=== PATIENT | male | born 1975 | race Caucasian/White ===

== ENCOUNTER → 2025-05-28 | Outpatient (REF) | payer MEDICAID, SELFPAY ==
[2025-05-28 09:03] LABS: Hematocrit 35.6 % (40-54); Hemoglobin 11.9 g/dL (13.0-16.5); Mean Corp Hgb Conc 33.4 g/dL (32-36); Mean Corpuscular Volume 86.8 fL (80-94); Mean Platelet Vol. 9.8 fl (6.2-12.0); Platelet Count 306 K/mm3 (150-450); RBC Distribution Width CV 15.1 % (11.6-14.6); RBC Distribution Width SD 48.1 fl (35.1-43.9); Red Blood Count 4.10 M/mm3 (4.6-6.2); White Blood Count 6.9 K/mm3 (4.4-11.0)
[2025-05-28 09:32] LABS: AST(SGOT) 38 U/L (<=37); Alanine Aminotransfer ALT/SGPT 38 U/L (<=46); Albumin, Serum 3.8 g/dL (3.5-5.0); Alkaline Phosphatase 119 U/L (40-129); Anion Gap 11 (5-15); BUN 12 mg/dL (4-19); BUN/Creat Ratio 13.6 RATIO (10-20); Calcium,Total 8.6 mg/dL (7.6-11.0); Carbon Dioxide 18.5 mmol/L (21.0-32.0); Chloride 106 mmol/L (98-108); Globulin 2.8 g/dL (2.2-4.2); Glucose 102 mg/dL (70-99); Potassium 3.9 mmol/L (3.3-5.1)
== END | disposition home or self-care (01) ==
LOC: OLS.SANC 05:00
PROVIDERS: Visit Provider Internal Medicine
DX: Z96.652 Presence of left artificial knee joint (principal)
CPT/HCPCS: 36415; 80053; 85027

== ENCOUNTER → 2025-06-05 05:00 | Outpatient (REF) | payer MEDICAID, SELFPAY ==
--- OUTSIDE RECORDS SUMMARY | 2025-06-05 04:29 | XMS RPT_ITS | CCD ---
Author Organization [facility] Providers Care Automotive Technician Name Role Phone AlexanderRustam Lindsey Attending Unavailable Results Test Name Value Interpretation Reference Range Facil ity CBC-Complete Blood Cnt No Di ffon 05-28-2025 Erythrocyte distribution width (RBC) [Ratio] 15.1 % High 11.6-14.6 [facility] Comment on above: Order Comment: 111-1 Performed By: #### L 100.0500, L500.4050 #### [facility] Laboratory [address] [place], [address] Hematocrit (Bld) [Volume fraction] 35.6 % Low 40-54 [facility] Comment on above: Order Comment: 111-1 Performed By: #### L 100.0500, L500.4050 #### [facility] [address] [place], [address] Hemoglobin (Bld) [Mass/Vol] 11.9 g/dL Low 13.0-16.5 [facility] Comment on above: Order Comment: 111-1 Performed By: #### L 100.0500, L500.4050 #### [facility] [address] [place], [address] MCH (RBC) [Entitic mass] 29.0 pg Normal 27.0-32.0 [facility] Comment on above: Order Comment: 111-1 Performed By: #### L 100.0500, L500.4050 #### [facility] [address] [place], [address] MCHC (RBC) [Mass/Vol] 33.4 g/dL Normal 32-36 [facility] Comment on above: Order Comment: 111-1 Performed By: #### L 100.0500, L500.4050 #### [facility] [address] [place], [address] MCV (RBC) [Entitic vol] 86.8 fL Normal 80-94 [facility] Comment on above: Order Comment: 111-1 Performed By: #### L 100.0500, L500.4050 #### [facility] [address] [place], [address] Platelet mean volume (Bld) [Entitic vol] 9.8 fL Normal 6.2-12.0 [facility] Comment on above: Order Comment: 111-1 Performed By: #### L 100.0500, L500.4050 #### [facility] [address] [place], [address] Platelets (Bld) [#/Vol] 306 10*3/uL Normal 150-450 [facility] Comment on above: Order Comment: 111-1 Performed By: #### L 100.0500, L500.4050 #### [facility] [address] [place], [address] RBC (Bld) [#/Vol] 4.10 10*6/uL Low 4.6-6.2 [facility] Comment on above: Order Comment: 111-1 Performed By: #### L 100.0500, L500.4050 #### [facility] [address] [place], [address] RDW SD 48.1 fl High 35.1-43.9 [facility] Comment on above: Order Comment: 111-1 Performed By: #### L 100.0500, L500.4050 #### [facility] [address] [place], [address] WBC (Bld) [#/Vol] 6.9 10*3/uL Normal 4.4-11.0 [facility] Comment on above: Order Comment: 111-1 Performed By: #### L 100.0500, L500.4050 #### [facility] [address] [place], [address] Comprehensive Metabolic Prof gillian 05-28-2025 Albumin [Mass/Vol] 3.8 g/dL Normal 3.5-5.0 [facility] Comment on above: Order Comment: 111-1 Performed By: #### L 100.0500, [id number] #### [facility] [address] [place], [address] Albumin/Globulin [Mass ratio] 1.4 {ratio} Normal 0.9-2.4 [facility] Comment on above: Order Comment: 111-1 Performed By: #### L 100.0500, L500.4050 #### [facility] [address] [place], [address] ALK PHOS 119 U/L Normal 40-129 [facility] Comment on above: Order Comment: 111-1 Performed By: #### L 100.0500, L500.4050 #### [facility] [address] [place], [address] ALT [Catalytic activity/Vol] 38 U/L Normal <=46 [facility] Comment on above: Order Comment: 111-1 Performed By: #### L 100.0500, L500.4050 #### [facility] [address] [place], [address] AST [Catalytic activity/Vol] 38 U/L Normal <=37 [facility] Comment on above: Order Comment: 111-1 Performed By: #### L 100.0500, [id number] #### [facility] [address] [place], [address] Bilirubin [Mass/Vol] 0.67 mg/dL Normal 0.00-1.30 [facility] Comment on above: Order Comment: 111-1 Performed By: #### L 100.0500, [id number] #### [facility] [address] [place], [address] BUN/CRE 13.6 RATIO Normal 10-20 [facility] Comment on above: Order Comment: 111-1 Performed By: #### L 100.0500, [id number] #### [facility] [address] [place], [address] Calcium [Mass/Vol] 8.6 mg/dL Normal 7.6-11.0 [facility] Comment on above: Order Comment: 111-1 Performed By: #### L 100.0500, [id number] #### [facility] [address] [place], [address] Chloride [Moles/Vol] 106 mmol/L Normal 98-108 [facility] Comment on above: Order Comment: 111-1 Performed By: #### L 100.0500, [id number] #### [facility] [address] [place], [address] CO2 [Moles/Vol] 18.5 mmol/L Low 21.0-32.0 [facility] Comment on above: Order Comment: 111-1 Performed By: #### L 100.0500, [id number] #### [facility] [address] [place], [address] Creatinine [Mass/Vol] 0.91 mg/dL Normal 0.70-1.20 [facility] Comment on above: Order Comment: 111-1 Performed By: #### L 100.0500, L500.4050 #### [facility] [address] [place], [address] GAP 11 Normal 5-15 [facility] Comment on above: Order Comment: 111-1 Performed By: #### L 100.0500, [id number] #### [facility] [address] [place], [address] GFR/1.73 sq M.predicted among non-blacks MDRD (S/P/Bld) [Vol rate/Area] 104 mL/min/{1.73_m2} Normal >60 [facility] Comment on above: Order Comment: 111-1 Result Comment: mL/m in/1.73m2 CKD-EPI Creatinine Equation (2020) Performed By: #### L 100.0500, L500.4050 #### [facility] [address] [place], [address] Globulin (S) [Mass/Vol] 2.8 g/dL Normal 2.2-4.2 [facility] Comment on above: Order Comment: 111-1 Performed By: #### L 100.0500, L500.4050 #### [facility] [address] [place], [address] Glucose [Mass/Vol] 102 mg/dL High 70-99 [facility] Comment on above: Order Comment: 111-1 Performed By: #### L 100.0500, L500.4050 #### [facility] [address] [place], [address] Potassium [Moles/Vol] 3.9 mmol/L Normal 3.3-5.1 [facility] Comment on above: Order Comment: 111-1 Performed By: #### L 100.0500, L500.4050 #### [facility] [address] [place], [address] Sodium [Moles/Vol] 136 mmol/L Normal 133-145 [facility] Comment on above: Order Comment: 111-1 Performed By: #### L 100.0500, [id number] #### [facility] [address] [place], [address] T PROT 6.6 g/dL Normal 5.9-8.4 [facility] Comment on above: Order Comment: 111-1 Performed By: #### L 100.0500, [id number] #### [facility] [address] [place], [place], [address] Urea nitrogen [Mass/Vol] 12 mg/dL Normal 4-19 [facility] Comment on above: Order Comment: 111-1 Performed By: #### L 100.0500, [id number] #### [facility] [address] [place], [address] Encounters Encounter Date Encounter Type Care Provider Facility Start: 05-28-2025 ambulatory Rustam Humberto BARBI Faci lity:[facility] Payers Date Payer Category Payer Self-pay Summary Purpose Family History No Family History Records Found Advance Directives No Advanced Directives Records Found Additional Source Comments (unrecognized sect ion and content) No Status Records Found INFORMATION SOURCE (unrecogn ized section and content) DATE CREATED AUTHOR 05/28/2025 [facility] FOR RECORDS PERTAINING TO PATIENTS WHO ARE OR HAVE BEEN ENROLLED IN A CHEMICAL DEPENDENCY/SUBSTANCEABUSE PROGRAM, SOME INFORMATION MAY BE OMITTED. This clinical summary was aggregated from multiple sources. Caution should be exercised in using it in the provision of clinical care. This summary normalizes information from multiple sources, and as a consequence, information in this document may materially change the coding, format and clinical context of patient data. In addition, data may be omitted in some cases. CLINICAL DECISIONS SHOULD BE BASED ON THE PRIMARY CLINICAL RECORDS. [employer] provides no warranty or guarantee of the accuracy or completeness of information in this document.
[2025-06-05 08:39] LABS: Hematocrit 33.7 % (40-54); Hemoglobin 11.1 g/dL (13.0-16.5); Mean Corp Hgb Conc 32.9 g/dL (32-36); Mean Corpuscular Volume 87.5 fL (80-94); Mean Platelet Vol. 9.0 fl (6.2-12.0); Platelet Count 354 K/mm3 (150-450); RBC Distribution Width CV 14.7 % (11.6-14.6); RBC Distribution Width SD 47.5 fl (35.1-43.9); Red Blood Count 3.85 M/mm3 (4.6-6.2); White Blood Count 7.6 K/mm3 (4.4-11.0)
[2025-06-05 09:47] LABS: Anion Gap 11 (5-15); BUN 14 mg/dL (4-19); BUN/Creat Ratio 15.3 RATIO (10-20); Calcium,Total 8.7 mg/dL (7.6-11.0); Carbon Dioxide 20.7 mmol/L (21.0-32.0); Chloride 107 mmol/L (98-108); Glucose 82 mg/dL (70-99); Potassium 3.9 mmol/L (3.3-5.1)
== END ==
LOC: OLS.SANC 05:00
PROVIDERS: Visit Provider Internal Medicine
DX: N40.0 Benign prostatic hyperplasia without lower urinary tract symptoms (principal); K57.90 Diverticulosis of intestine, part unspecified, without perforation or abscess without bleeding; Z47.1 Aftercare following joint replacement surgery
CPT/HCPCS: 36415; 80048; 85027

== ENCOUNTER → 2025-06-12 | Outpatient (REF) | payer MEDICAID, SELFPAY ==
[2025-06-12 08:42] LABS: Hematocrit 35.1 % (40-54); Hemoglobin 11.4 g/dL (13.0-16.5); Mean Corp Hgb Conc 32.5 g/dL (32-36); Mean Corpuscular Volume 88.0 fL (80-94); Mean Platelet Vol. 9.4 fl (6.2-12.0); Platelet Count 347 K/mm3 (150-450); RBC Distribution Width CV 14.7 % (11.6-14.6); RBC Distribution Width SD 47.8 fl (35.1-43.9); Red Blood Count 3.99 M/mm3 (4.6-6.2); White Blood Count 5.5 K/mm3 (4.4-11.0)
[2025-06-12 09:00] LABS: FOLATES,SERUM (FOLIC ACID) 3.65 ng/mL (4.60-34.80)
[2025-06-12 09:01] LABS: Anion Gap 9 (5-15); BUN 10 mg/dL (4-19); BUN/Creat Ratio 11.1 RATIO (10-20); Calcium,Total 8.9 mg/dL (7.6-11.0); Carbon Dioxide 21.4 mmol/L (21.0-32.0); Chloride 108 mmol/L (98-108); Glucose 82 mg/dL (70-99); Iron 64 ug/dL (65-175); Iron Binding Capacity,Total 255 ug/dL (250-450); Iron Binding Capacity,Unsat 191 ug/dL (228-428); Potassium 3.8 mmol/L (3.3-5.1); Vitamin B12 318 pg/mL (180-914)
== END | disposition home or self-care (01) ==
LOC: OLS.SANC 05:00
PROVIDERS: Visit Provider Internal Medicine
DX: N40.0 Benign prostatic hyperplasia without lower urinary tract symptoms (principal); M19.90 Unspecified osteoarthritis, unspecified site
CPT/HCPCS: 36415; 80048; 82607; 82746; 83540; 83550; 85027

== ENCOUNTER → 2025-06-15 05:00 | Outpatient (REF) | payer MEDICAID, SELFPAY ==
--- OUTSIDE RECORDS SUMMARY | 2025-06-15 04:30 | XMS RPT_ITS | CCD ---
Author Organization [facility] Care Team Providers Care Napping Machine Operator Name Role Phone Alexia BAIN, Agapito Samaniego Primary Care Provider Unavailable Primary Care Provider Unavailabl e Jacob Beavers MD, Devon Quiñonez Primary Care Provi dagmar Jacob Beavers MD, Devon Quiñonez Primary Care Provi dagmar Jacob Beavers MD, Devon Quiñonez Primary Care Provi dagmar Jacob Beavers MD, Devon Quiñonez Primary Care Provi dagmar Elmira Polo PA-C Unavailable Jacob Beavers MD, Devon Quiñonez Primary Care Provi dagmar Jacob Beavers MD, Devon Quiñonez Primary [facility] Provi dagmar 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.MARILEE, Remi Primary Care Provider DEVON JAMES JR Primary Care Unavail able MASTRUCCI, REMI Referring Unavailable MASTRUCCI, REMI Primary Care Unavailable MASTRUCCI, REMI Primary Care Unavailable YOMI MANZANARES Attending Unavailable DEVON JAMES JR Primary Care Unavail able YOON ZHANG Referring Unavailable MASTRUCCI, REMI Primary Care Unavailable YOON ZHANG Attending Unavailable MASTRUCCI, REMI Primary Care Unavailable MASTRUCCI, REMI Referring Unavailable MASTRUCCI, REMI Primary Care Unavailable MASTRUCCI, REMI Attending Unavailable MASTRUCCI, REMI Referring Unavailable MASTRUCCI, REMI Primary Care Unavailable MASTRUCCI, REMI Primary Care Unavailable MASTRUCCI, REMI Attending Unavailable SELF Referring Unavailable MASTRUCCI, REMI Primary Care Unavailable MASTRUCCI, REMI Attending Unavailable LINA DUARTE Attending Unavailable SELF Referring Unavailable MASTRUCCI, REMI Primary Care Unavailable MASTRUCCI, REMI Attending Unavailable MASTRUCCI, REMI Primary Care Unavailable MASTRUCCI, REMI Referring Unavailable MASTRUCCI, ERMI Primary Care Unavailable MASTRUCCI, REMI Referring Unavailable MASTRUCCI, REMI Primary Care Unavailable MASTRUCCI, REMI Attending Unavailable SELF Referring Unavailable MASTRUCCI, REMI Primary Care Unavailable MASTRUCCI, REMI Referring Unavailable MASTRUCCI, REMI Primary Care Unavailable MASTRUCCI, REMI Primary Care Unavailable LINDSAY DHILLON Attending Unavailable MASTRUCCI, REMI Primary Care Unavailable MASTRUCCI, REMI Attending Unavailable SELF Referring Unavailable MASTRUCCI, REMI Primary Care Unavailable SELF Referring Unavailable MASTRUCCI, REMI Primary Care Unavailable MASTRUCCI, REMI Attending Unavailable SELF Referring Unavailable MASTRUCCI, ERMI Primary Care Unavailable MASTRUCCI, REMI Attending Unavailable GURMEET FINN Attending Unavailabl e SELF Referring Unavailable MASTRUCCI, REMI Primary Care Unavailable SELF Referring Unavailable MASTRUCCI, REMI Primary Care Unavailable MASTRUCCI, REMI Attending Unavailable RODAS, DOLLY Attending Unavailable SELF Referring Unavailable MASTRUCCI, REMI Primary Care Unavailable RODAS, DOLLY Referring Unavailable MASTRUCCI, REMI Primary Care Unavailable MASTRUCCI, REMI Referring Unavailable MASTRUCCI, REMI Primary Care Unavailable MASTRUCCI, REMI Referring Unavailable MASTRUCCI, REMI Primary Care Unavailable MASTRUCCI, REMI Attending Unavailable MASTRUCCI, REMI Referring Unavailable TRE SERRANO Attending Unavailable MASTRUCCI, REMI Primary Care Unavailable MASTRUCCI, REMI Primary Care Unavailable MASTRUCCI, REMI Primary Care Unavailable MASTRUCCI, REMI Attending Unavailable SELF Referring Unavailable MASTRUCCI, REMI Primary Care Unavailable MASTRUCCI, REMI Attending Unavailable MASTRUCCI, REMI Referring Unavailable MASTRUCCI, REMI Primary Care Unavailable MASTRUCCI, REMI Attending Unavailable MASTRUCCI, REMI Primary Care Unavailable MASTRUCCI, REMI Attending Unavailable MASTRUCCI, REMI Primary Care Unavailable SELF Referring Unavailable MASTRUCCI, REMI Primary Care Unavailable MASTRUCCI, REMI Attending Unavailable MAYO POWERS Attending Unavailable MASTRUCCI, REMI Primary Care Unavailable LAURIE COKER Attending Unavailable MASTRUCCI, REMI Primary Care Unavailable MASTRUCCI, REMI Primary Care Unavailable MASTWILY, REMI Primary Care Unavailable Rustam Goodrich Attending Unavailable Rustam Goodrich Attending Unavailable Rustam Goodrich Attending Unavailable Allergies Allergy Classification Reported Allergen(s) Allergy Type Date of Onset Reaction(s) Facility Macrolides (antibiotic) (1 source) Erythromycin Drug Allergy 09-10-20 16 Hives, Shortness of Breath [facility] Work Phone: Sulfamethoxazole / Trimethoprim (1 source) Sulfamethoxazole / Trimethoprim Drug All[facility] 06-01-[facility] Work Phone: Sulfonamides (antibiotic) (1 source) Sulfonamides (Antibiotic) Drug Allergy 09-10-20 16 Unknown [facility] (20 sources) Erythromycin; Translations: [ERYTHROMYCIN BASE] Drug Allergy 09-10-20 16 Hives, Shortness of Breath [facility] Work Phone: (20 sources) Sulfamethoxazole / Trimethoprim; Translations: [SULFAMETHOXAZOLE-T RIMETHOPRIM] Drug Allergy 06-01-20 15 [facility] (20 sources) Sulfonamides (Antibiotic); Translations: [SULFA (SULFONAMIDE ANTIBIOTICS)] Propensity to adverse reactions to drug 09-10-20 16 Unknown [facility] Medications Current Medications Medication Drug Class(es) Dates Sig (Normalized) Sig (Original) acetaminophen 325 mg / HYDROcodone bitartrate 5 mg oral tablet (8 sources) Opioid Agonist Start: 08-18-2022 End: 08-23-2022 take 1 tablet by mouth every eight hours as needed for pain HYDROcodone-aceta minophen (NORCO) 5-325 mg per tablet Indications: Contusion of right knee, initial encounter , Patellar dislocation, right, initial encounter Take 1 tablet by mouth every 8 hours as needed for pain for up to 5 days. 10 tablet 0 08/18/2022 08/23/2022 Active Start: 07-30-2022 End: 08-18-2022 take 1 tablet by mouth every six hours as needed for pain HYDROcodone-acetaminophen (NORCO) 5-325 mg per tablet Indications: Left lower quadrant abdominal pain Take 1 tablet by mouth every 6 hours as needed for pain. 15 tablet 0 07/30/2022 08/18/2022 Discontinued Comment on above: Take 1 tablet by kalee th every 6 hours as needed for pain. Take 1 tablet by kalee th every 8 hours as needed for pain for up to 5 days. [id number] 200 actuat albuterol 0.09 mg/actuat metered dose inhaler (20 sources) beta2-Adrenergic Agonist Start: 4 End: take 2 puff(s) by inhalation every four hours as needed for wheezing albuterol HFA (PROVENTIL HFA, VENTOLIN HFA) 90 mcg/actuation inhaler Indications: Viral URI with cough Inhale 2 Puffs as instructed every 4 hours as needed for wheezing/shortness of breath. 8 g 03/09/2024 02/09/2025 Discontinued Start: 05-09-2021 End: 02-09-2025 take 2 puff(s) by inhalation every four hours as needed albuterol HFA (PROAIR HFA) 90 mcg/actuation inhaler Indications: Mild intermittent asthma without complication (HCC) Inhale 2 puffs as instructed every 4 hours as needed. 1 each 3 02/09/2025 Active Comment on above: Inhale 2 Puffs as in structed every 4 hours as needed. amoxicillin 875 mg oral tablet (3 sources) Penicillin-class Antibacterial Start: 4 End: 4 take 1 tablet by mouth twice daily amoxicillin (AMOXIL) 875 mg tablet Indications: Upper respiratory tract infection, unspecified type Take 1 tablet by mouth two times a day for 7 days. 14 tablet 10/12/2024 10/19/2024 Active Start: 12-23-2023 End: 12-30-2023 take 1 tablet by mouth twice daily amoxicillin (AMOXIL) 875 mg tablet Indications: Acute otitis media, left Take 1 tablet by mouth two times a day for 7 days. 14 tablet 0 12/23/2023 12/30/2023 Active Comment on above: Take 1 tablet by kalee th two times a day for 7 days. amoxicillin 875 mg / clavulanate 125 mg oral tablet (20 sources) Penicillin-class Antibacterial Start: 5 End: take 1 tablet by mouth twice daily amoxicillin-clavulan ate potassium (AUGMENTIN) 875-125 mg per tablet Indications: Acute non-recurrent pansinusitis Take 1 tablet by mouth two times a day for 10 days. 20 tablet 02/09/2025 02/19/2025 Active Start: 12-11-2024 End: 12-25-2024 take 1 tablet by mouth every twelve hours amoxicillin-clavulanate potassium (AUGMENTIN) 875-125 mg per tablet Indications: Acute recurrent sinusitis, unspecified location Take 1 tablet by mouth every 12 hours for 14 days. 28 tablet 12/11/2024 12/20/2024 Discontinued Start: 11-09-2024 End: 11-19-2024 take 1 tablet by mouth every twelve hours amoxicillin-clavulanate potassium (AUGMENTIN) 875-125 mg per tablet Indications: Acute non-recurrent sinusitis, unspecified location Take 1 tablet by mouth every 12 hours for 10 days. 20 tablet 11/09/2024 11/19/2024 Active Start: 05-23-2024 End: 05-30-2024 take 1 tablet by mouth twice daily amoxicillin-clavulanate potassium (AUGMENTIN) 875-125 mg per tablet Indications: Acute non-recurrent maxillary sinusitis Take 1 tablet by mouth two times a day for 7 days. 14 tablet 0 05/23/2024 05/30/2024 Active Start: 07-12-2023 End: 08-18-2023 take 1 tablet by mouth twice daily at mealtime amoxicillin-clavulanic acid (AUGMENTIN) 875-125 mg per tablet Indications: Recurrent acute serous otitis media of both ears Take 1 tablet by mouth two times a day with meals for 14 days. 28 tablet 0 08/04/2023 08/17/2023 Discontinued Start: 10-05-2022 End: 12-18-2022 take 1 tablet by mouth twice daily amoxicillin-clavulanic acid (AUGMENTIN) 875-125 mg per tablet Indications: Acute recurrent maxillary sinusitis Take 1 tablet by mouth twice daily for 10 days. 20 tablet 0 12/08/2022 12/18/2022 Start: 08-10-2022 End: 08-20-2022 take 1 tablet by mouth twice daily amoxicillin-clavulanic acid (AUGMENTIN) 875-125 mg per tablet Indications: Left sided abdominal pain , Diverticulosis Take 1 tablet by mouth twice daily for 10 days. 20 tablet 0 08/10/2022 08/20/2022 Start: 06-24-2022 End: 06-19-2022 take 1 tablet by mouth every twelve hours amoxicillin-clavulanic acid (AUGMENTIN) 875-125 mg per tablet Indications: Viral URI with cough Take 1 tablet by mouth every 12 hours for 5 days. 10 tablet 0 06/24/2022 06/19/2022 Discontinued (Course of therapy completed) Start: 06-24-2022 End: 06-29-2022 take 1 tablet by mouth every twelve hours amoxicillin-clavulanic acid (AUGMENTIN) 875-125 mg per tablet Indications: Viral URI with cough Take 1 tablet by mouth every 12 hours for 5 days. 10 tablet 0 06/24/2022 06/29/2022 Active Start: 06-19-2022 End: 07-30-2022 take 1 tablet by mouth twice daily at mealtime amoxicillin-clavulanic acid (AUGMENTIN) 875-125 mg per tablet Indications: Bacterial sinusitis Take 1 tablet by mouth twice daily with meals. 28 tablet 0 06/19/2022 07/30/2022 Discontinued Start: 04-06-2022 End: 06-17-2022 take 1 tablet by mouth twice daily at mealtime amoxicillin-clavulanic acid (AUGMENTIN) 875-125 mg per tablet Indications: Bacterial sinusitis Take 1 tablet by mouth twice daily with meals. 28 tablet 0 04/06/2022 06/17/2022 Discontinued (Course of therapy completed) Start: 03-13-2022 End: 03-20-2022 take 1 tablet by mouth twice daily at mealtime amoxicillin-clavulanic acid (AUGMENTIN) 875-125 mg per tablet Indications: Acute non-recurrent maxillary sinusitis Take 1 tablet by mouth twice daily with meals for 7 days. 14 tablet 0 03/13/2022 03/20/2022 Active Comment on above: Take 1 tablet by kalee th twice daily with meals for 7 days. Take 1 tablet by kalee th twice daily with meals. Take 1 tablet by kalee th every 12 hours for 5 days. Take 1 tablet by kalee th twice daily for 10 days. 1 tab twice daily wi th food 1 tablet twice daily with food Take 1 tablet by kalee th twice daily for 7 days. Take 1 tablet by kalee th two times a day with meals for 14 days. betamethasone 1 mg/ml topical cream (4 sources) Corticosteroid Start: End: betamethasone valerate 0.1 % cream Indications: Eczema, unspecified type Apply 1 application to affected area two times a day. 45 g 10/19/2024 11/18/2024 Active betamethasone 0.5 mg/ml / clotrimazole 10 mg/ml topical cream (2 sources) Azole Antifungal, Corticosteroid Start: End: clotrimazole-betamet hasone (LOTRISONE) cream Indications: Rash Apply to affected area two times a day for 14 days. 45 g 0 02/25/2024 03/10/2024 Active busPIRone hydrochloride 10 mg oral tablet (20 sources) Start: End: take 1 tablet by mouth three times daily busPIRone (BUSPAR) 10 mg tablet Indications: Anxiety and depression Take 1 tablet by mouth three times a day. 270 tablet 10/19/2024 01/17/2025 Active celecoxib 100 mg oral capsule (20 sources) Nonsteroidal Anti-inflammatory Drug take 1 capsule by mouth twice daily celecoxib (CELEBREX) 100 mg capsule Take 100 mg by mouth two times a day. Active cholecalciferol 1.25 mg oral capsule (20 sources) Vitamin D Start: End: take 1 capsule by mouth every week cholecalciferol, Vitamin D3, (VITAMIN D3) 1,250 mcg (50,000 unit) cap capsule Indications: Vitamin D deficiency Take 1 capsule by mouth one time a week for 10 doses. 10 capsule 10/19/2024 Active clobetasol propionate 0.5 mg/ml topical cream (11 sources) Corticosteroid Start: clobetasol (TEMOVATE) 0.05 % cream apply 1 application topically to affected area two times a day. 04/11/2025 Active Start: 12-20-2024 End: 01-19-2025 clobetasol (TEMOVATE) 0.05 % cream Indications: Eczema, unspecified type Apply 1 application to affected area two times a day. 30 g 1 12/20/2024 01/19/2025 Active 12 hr dextromethorphan hydrobromide 30 mg / guaiFENesin 600 mg extended release oral tablet (3 sources) Uncompetitive J-buflpe-H-aspartate Receptor Antagonist, Sigma-1 Agonist Start: 06-17-2022 End: 06-24-2022 take 1 tablet by mouth twice daily dextromethorphan-guaiFENesin (MUCINEX DM) 30-600 mg per tablet Indications: Viral URI with cough Take 1 tablet by mouth twice daily for 7 days. 14 tablet 0 06/17/2022 06/24/2022 Active Comment on above: Take 1 tablet by [facility] twice daily for 7 days. 0.5 ml dulaglutide 3 mg/ml auto-injector (20 sources) GLP-1 Receptor Agonist Start: 03-12-2025 End: 05-15-2025 inject 1.5 mg by subcuta neous injecti on every week dulaglutide (TRULICITY) 1.5 mg/0.5 mL pen injector Indications: Pre-diabetes Inject 1.5 mg subcutaneously one time a week. 6 mL 1 05/15/2025 Active Start: 02-12-2025 End: 03-14-2025 inject 0.75 mg by subcutaneous injection every week dulaglutide (TRULICITY) 0.75 mg/0.5 mL pen injector Indications: Pre-diabetes Inject 0.75 mg subcutaneously one time a week. 2 mL 02/12/2025 03/12/2025 Discontinued fluocinolone acetonide 0.35390 mg/mg topical ointment (3 sources) Corticosteroid Start: 08-04-2023 End: 09-03-2023 fluocinolone (SYNALAR) 0.025 % ointment Indications: Eczema, unspecified type Apply to affected area two times a day. 120 g 1 08/04/2023 09/03/2023 Active Comment on above: Apply to affected ar ea two times a day. FLUoxetine 40 mg oral capsule (20 sources) Serotonin Reuptake Inhibitor Start: 08-08-2024 End: 02-04-2025 take 1 capsule by mouth once daily FLUoxetine (PROZAC) 40 mg capsule Indications: Anxiety and depression TAKE 1 CAPSULE BY MOUTH EVERY DAY 90 capsule 1 12/21/2024 Active Start: 07-13-2024 End: 01-09-2025 take 1 capsule by mouth once daily FLUoxetine (PROZAC) 10 mg capsule Indications: Anxiety and depression Take 1 capsule by mouth once daily. 90 capsule 1 07/13/2024 08/08/2024 Discontinued Start: 12-27-2023 End: 05-31-2024 take 2 capsules by mouth once daily FLUoxetine (PROZAC) 10 mg capsule Indications: Anxiety and depression Take 2 capsules by mouth once daily. 180 capsule 1 12/27/2023 05/31/2024 Discontinued Start: 11-03-2021 End: 02-02-2023 take 2 capsules by mouth once daily FLUoxetine (PROZAC) 10 mg capsule Indications: Anxiety and depression Take 2 capsules by mouth once daily. 180 capsule 1 02/02/2023 Active Comment on above: Take 2 capsules by m outh once daily. fluticasone propionate 0.05 mg/actuat metered dose nasal spray (20 sources) Corticosteroid Start: 02-27-20 take 1 spray(s) nasal route at bedtime fluticasone (FLONASE) 50 mcg/actuation nasal spray Indications: Upper respiratory tract infection, unspecified type SPRAY 1 SPRAY INTO EACH NOSTRIL AT BEDTIME 48 mL 1 02/26/2025 Active Start: 12-08-2024 End: 01-30-2025 take 1 spray(s) nasal route at bedtime fluticasone (FLONASE) 50 mcg/actuation nasal spray Indications: Upper respiratory tract infection, unspecified type SPRAY 1 SPRAY INTO EACH NOSTRIL AT BEDTIME 144 mL 1 01/30/2025 Active Start: 10-12-2024 End: 12-08-2024 take 1 spray(s) nasal route once daily at bedtime fluticasone (FLONASE) 50 mcg/actuation nasal spray Indications: Upper respiratory tract infection, unspecified type Use 1 Hol[place] in each nostril daily at bedtime. 9.9 mL 10/12/2024 12/08/2024 Discontinued Start: 07-12-2023 End: 05-31-2024 take 2 spray(s) nasal route once daily at bedtime fluticasone (FLONASE) 50 mcg/actuation nasal spray Indications: Acute non-recurrent sinusitis, unspecified location Use 2 Sprays in each nostril daily at bedtime. 1 Each 1 07/12/2023 05/31/2024 Discontinued Start: 04-06-2022 End: 07-12-2023 take 1 spray(s) nasal route twice daily fluticasone (FLONASE ALLERGY RELIEF) 50 mcg/actuation nasal spray Indications: Acute recurrent maxillary sinusitis Use 1 [place] in each nostril twice daily. 1 Each 0 12/08/2022 07/12/2023 Discontinued Comment on above: Use 1 Hol[place] in each nostril twice daily. Use 2 Sprays in each nostril daily at bedtime. gabapentin 300 mg oral capsule (20 sources) Anti-epileptic Agent Start: 11-03-19 End: 03-14-20 gabapentin (NEURONTIN) 300 mg capsule Indications: Restless leg syndrome , Intractable migraine without status migrainosus, unspecified migraine type Take 4 capsules by mouth as directed for 30 days. 120 capsule 02/12/2025 Active Comment on above: Take 4 capsules by [facility] as directed for 180 days. 12 hr guaiFENesin 600 mg extended release oral tablet (2 sources) Start: 08-17-20 End: 08-27-20 take 1 tablet by mouth twice daily guaiFENesin (MUCINEX) 600 mg 12 hr tablet Indications: Chest congestion Take 1 tablet by mouth two times a day for 10 days. 20 tablet 0 08/17/2023 08/27/2023 Active Comment on above: Take 1 tablet by [facility] two times a day for 10 days. hydrocortisone 10 mg/ml / neomycin 3.5 mg/ml / polymyxin b [id number] unt/ml otic suspension (5 sources) Aminoglycoside Antibacterial, Polymyxin-class Antibacterial, Corticosteroid Start: 12-20-19 End: 12-25-19 25 neomycin-polymyxin- hydrocortisone (CORTISPORIN) 3.5-10,000-1 mg/mL-unit/mL-% otic suspension Indications: Earache on left Use 4 Drops in the left ear four times daily for 5 days. 10 mL 12/20/2024 12/25/2024 Active Start: 12-23-2023 End: 12-28-2023 hruvufot-jdsunwtpu-paqhpevnp isone (CORTISPORIN) 3.5-10,000-1 mg/mL-unit/mL-% otic suspension Indications: Acute otitis externa of left ear, unspecified type Use 4 Drops in the left ear three times a day for 5 days. 3 mL 0 12/23/2023 12/28/2023 Active Comment on above: Use 4 Drops in the l eft ear three times a day for 5 days. hydrOXYzine hydrochloride 50 mg oral tablet (20 sources) Antihistamine Start: 07-13-20 24 End: 07-04-20 take 1 tablet by mouth three times daily as needed for anxiety hydrOXYzine HCl (ATARAX) 50 mg tablet Indications: Anxiety and depression TAKE 1 TABLET BY MOUTH THREE TIMES A DAY NEEDED FOR ANXIETY 270 tablet 1 01/05/2025 07/04/2025 Active Start: 06-09-2024 End: 07-09-2024 take 1 tablet by mouth three times daily as needed hydrOXYzine HCl (ATARAX) 25 mg tablet Indications: Dermatitis , Rash Take 1 tablet by mouth three times a day as needed for itching/rash. 60 tablet 06/09/2024 07/09/2024 Active Start: 11-03-2021 End: 05-31-2024 take 1 tablet by mouth three times daily as needed hydrOXYzine HCl (ATARAX) 25 mg tablet Indications: Anxiety and depression TAKE 1 TABLET BY MOUTH THREE TIMES A DAY NEEDED FOR ITCHING/ rash and anxiety. 270 tablet 0 02/04/2023 05/31/2024 Discontinued Comment on above: Take 1 tablet by kalee th three times daily as needed for itching/rash. And anxiety TAKE 1 TABLET BY KALEE TH THREE TIMES A DAY NEEDED FOR ITCHING/ rash and anxiety. ketorolac tromethamine 10 mg oral tablet (14 sources) Nonsteroidal Anti-inflammatory Drug, Cyclooxygenase Inhibitor Start: End: take 1 tablet by mouth every six hours as needed keTORolac (TORADOL) 10 mg tablet Take 1 tablet by mouth every 6 hours as needed for up to 5 days. 20 tablet 02/14/2025 02/19/2025 Active Start: 04-13-2022 End: 07-30-2022 take 1 tablet by mouth twice daily as needed for pain keTORolac (TORADOL) 10 mg tablet Indications: Right facial pain , Intractable migraine without aura and without status migrainosus Take 1 tablet by mouth twice daily as needed for pain. 8 tablet 0 04/13/2022 07/30/2022 Discontinued Comment on above: Take 1 tablet by kalee th twice daily as needed for pain. levoFLOXacin 750 mg oral tablet (1 source) Quinolone Antimicrobial Start: End: take 1 tablet by mouth once daily levoFLOXacin (LEVAQUIN) 750 mg tablet Take 1 tablet by mouth once daily for 7 days. 7 tablet 0 01/19/2024 01/26/2024 Active Comment on above: Take 1 tablet by kalee th once daily for 7 days. lidocaine 0.04 mg/mg medicated patch (8 sources) Antiarrhythmic, Amide Local Anesthetic Start: End: apply 1 dose transdermal route once daily, then apply 1 dose transdermal route every twelve hours lidocaine (SALONPAS) 4 % patch Apply 1 patch as directed once daily for 5 days. Remove patch after 12 hours 5 patch 02/14/2025 02/19/2025 Active Start: 07-13-2024 End: 07-18-2024 apply 1 dose transdermal route once daily, then apply 1 dose transdermal route every twelve hours lidocaine (LIDODERM) 5 % Indications: Acute left-sided low back pain without sciatica Apply 1 Patch as directed once daily for 5 days. to affected area. Remove patch after 12 hours. 5 Patch 07/13/2024 07/18/2024 Active Start: 05-13-2023 End: 05-13-2023 lidocaine (PF) 10 mg/mL (1 % ) 4 mL injection (XYLOCAINE) Start: 12-31-2022 End: 01-03-2023 apply 1 dose transdermal route every twenty-four hours lidocaine (LIDODERM) 5 % Apply 1 Patch as directed every 24 hours for 3 days. 3 Patch 0 12/31/2022 01/03/2023 Active Start: 07-02-2022 End: 07-02-2022 lidocaine (PF) 10 mg/mL (1 % ) 4 mL injection (XYLOCAINE) Comment on above: Apply 1 Patch as dir ected every 24 hours for 3 days. meloxicam 15 mg oral tablet (10 sources) Nonsteroidal Anti-inflammatory Drug Start: 07-13-20 End: 08-12-20 take 1 tablet by mouth once daily meloxicam (MOBIC) 15 mg tablet Indications: Acute left-sided low back pain without sciatica Take 1 tablet by mouth once daily. 30 tablet 07/13/2024 08/12/2024 Active methocarbamol 750 mg oral tablet (20 sources) Muscle Relaxant Start: 02-13-20 End: 05-13-20 take 1 tablet by mouth three times daily methocarbamol (ROBAXIN) 750 mg tablet Indications: Muscle spasm of back , Restless leg syndrome Take 1 tablet by mouth three times a day. 90 tablet 2 02/12/2025 05/13/2025 Active Start: 02-12-2025 End: 02-12-2025 take 1 tablet by mouth three times daily methocarbamol 1,000 mg tablet Indications: Muscle spasm of back , Restless leg syndrome Take 1 tablet by mouth three times a day. 90 tablet 2 02/12/2025 02/12/2025 Discontinued Start: 08-08-2024 End: 02-12-2025 take 1 tablet by mouth three times daily methocarbamol 1,000 mg tablet Indications: Muscle spasm of back , Restless leg syndrome Take 1 tablet by mouth three times a day. 90 tablet 2 08/08/2024 02/12/2025 Discontinued Start: 08-08-2024 take 1 tablet by kalee three times daily methocarbamol 1,000 mg tablet Indications: Muscle spasm of back , Restless leg syndrome Take 1 tablet by mouth three times a day. 90 tablet 2 08/08/2024 Active Start: 06-21-2024 End: 07-13-2024 take 1 tablet by mouth three times daily methocarbamol (ROBAXIN) 500 mg tablet Indications: Acute left-sided low back pain without sciatica Take 1 tablet by mouth three times a day. BE CAREFUL OF DROWSINESS 60 tablet 06/21/2024 07/13/2024 Discontinued miconazole nitrate 0.02 mg/mg topical powder (5 sources) Azole Antifungal Start: 01-12-2022 End: 03-13-2022 miconazole (LOTRIMIN AF, DESENEX) 2 % powder Indications: Fungal dermatitis Apply 1 application to affected area twice daily. 85 g 5 01/12/2022 03/13/2022 Active Comment on above: Apply 1 application to affected area twice daily. montelukast 10 mg oral tablet (20 sources) Leukotriene Receptor Antagonist Start: 05-31-2024 End: 02-02-2025 take 1 tablet by mouth once daily at bedtime montelukast (SINGULAIR) 10 mg tablet Indications: Sinus congestion TAKE 1 TABLET BY MOUTH EVERYDAY AT BEDTIME 90 tablet 02/02/2025 Active nystatin 100 unt/mg topical powder (13 sources) Polyene Antifungal Start: 04-23-2025 End: 05-07-2025 nystatin (MYCOSTATIN) powder Indications: Fungal skin infection Apply 1 application to affected area three times a day for 14 days. 30 g 04/23/2025 05/07/2025 Active Start: 06-19-2022 End: 07-19-2022 take 1 tablet by mouth twice daily nystatin (MYCOSTATIN, NILSTAT) 500,000 unit tab Indications: Bacterial sinusitis Take 1 tablet by mouth twice daily. 60 tablet 1 06/19/2022 07/19/2022 Start: 02-09-2022 End: 03-11-2022 take 1 tablet by mouth twice daily nystatin (MYCOSTATIN, NILSTAT) 500,000 unit tab Take 1 tablet by mouth twice daily. 60 tablet 1 02/09/2022 03/11/2022 Active Comment on above: Take 1 tablet by kalee th twice daily. ondansetron 4 mg disintegrating oral tablet (20 sources) Serotonin-3 Receptor Antagonist Start: 02-15-20 End: 02-22-20 take 1 tablet by mouth every six hours as needed ondansetron orally disintegrating (ZOFRAN ODT) 4 mg disintegrating tablet Take 1 tablet by mouth every 6 hours as needed for nausea/vomiting for up to 7 days. 20 tablet 02/14/2025 02/21/2025 Active Start: 04-13-2024 End: 04-20-2024 take 1 tablet by mouth every six hours as needed ondansetron orally disintegrating (ZOFRAN ODT) 4 mg disintegrating tablet Take 1 tablet by mouth every 6 hours as needed for nausea/vomiting for up to 7 days. 20 tablet 0 04/13/2024 04/20/2024 Active Start: 07-30-2022 take 1 tablet by kalee th every eight hours as needed ondansetron orally disintegrating (ZOFRAN ODT) 4 mg disintegrating tablet Take 1 tablet by mouth every 8 hours as needed for nausea/vomiting. 15 tablet 0 07/30/2022 Active Start: 07-30-2022 End: 08-10-2022 take 1 tablet by mouth every six hours as needed ondansetron orally disintegrating (ZOFRAN ODT) 4 mg disintegrating tablet Take 1 tablet by mouth every 6 hours as needed. 12 tablet 0 07/30/2022 08/10/2022 Discontinued Comment on above: Take 1 tablet by kalee th every 8 hours as needed for nausea/vomiting. Take 1 tablet by kalee th every 6 hours as needed. oxyCODONE hydrochloride 5 mg oral tablet (3 sources) Opioid Agonist Start: 02-15-20 End: 02-22-20 take 1 tablet by mouth every six hours as needed for pain oxyCODONE IR (ROXICODONE) 5 mg immediate release tablet Indications: Ureteral calculus Take 1 tablet by mouth every 6 hours as needed for pain for up to 7 days. 12 tablet 02/14/2025 02/21/2025 Active Start: 01-28-2025 End: 01-31-2025 take 1 tablet by mouth every six hours as needed for pain oxyCODONE IR (ROXICODONE) 5 mg immediate release tablet Indications: Acute pain of left knee , Pain and swelling of left knee Take 1 tablet by mouth every 6 hours as needed for pain for up to 3 days. 12 tablet 01/28/2025 01/31/2025 Active pimecrolimus 10 mg/ml topical cream (3 sources) Calcineurin Inhibitor Immunosuppressant Start: 02-02-2023 End: 03-04-2023 pimecrolimus (ELIDEL) 1 % cream Apply to affected area twice daily. 60 g 1 02/02/2023 03/04/2023 Active Comment on above: Apply to affected ar ea twice daily. predniSONE 10 mg oral tablet (20 sources) Start: 03-09-2024 End: 03-15-2024 take 2 tablets by mouth once daily, then take 1 tablet by mouth once daily predniSONE (DELTASONE) 10 mg tablet Indications: Viral URI with cough Take 2 tablets by mouth once daily for 3 days, THEN 1 tablet once daily for 3 days. 9 tablet 0 03/09/2024 03/15/2024 Active Start: 02-25-2024 End: 05-31-2024 predniSONE (DELTASONE) 10 mg tablet Indications: Nasal congestion , Left ear pain Day #1 - 6 tablets PO then Day #2 - 5 tablets PO then Day #3 - 4 tablets PO then Day #4 - 3 tablets PO then Day #5 - 2 tablets PO then Day #6 - 1 tablet PO 21 tablet 0 02/25/2024 05/31/2024 Discontinued Start: 02-16-2023 End: 08-24-2023 take 2 tablets by mouth once daily predniSONE (DELTASONE) 20 mg tablet Indications: Acute cough Take 2 tablets by mouth once daily for 7 days. 14 tablet 0 08/17/2023 08/24/2023 Active Start: 12-08-2022 End: 12-19-2022 take 5 tablets by mouth once daily, then take 4 tablets by mouth once daily, then take 3 tablets by mouth once daily, then take 2 tablets by mouth once daily, then take 1 tablet by mouth once daily predniSONE (DELTASONE) 10 mg tablet Indications: Eczema, unspecified type , Acute left-sided low back pain without sciatica Take 5 tablets by mouth once daily for 3 days, THEN 4 tablets once daily for 2 days, THEN 3 tablets once daily for 2 days, THEN 2 tablets once daily for 2 days, THEN 1 tablet once daily for 2 days. 35 tablet 0 12/08/2022 12/19/2022 Start: 04-23-2022 End: 04-28-2022 take 4 tablets by mouth once daily, then take 3 tablets by mouth once daily, then take 2 tablets by mouth once daily, then take 1 tablet by mouth once daily predniSONE (DELTASONE) 10 mg tablet Indications: Middle ear effusion, left Take 4 tablets by mouth once daily for 2 days, THEN 3 tablets once daily for 1 day, THEN 2 tablets once daily for 1 day, THEN 1 tablet once daily for 1 day. 14 tablet 0 04/23/2022 04/28/2022 Active Start: 03-13-2022 End: 03-18-2022 take 2 tablets by mouth once daily predniSONE (DELTASONE) 20 mg tablet Indications: Acute non-recurrent maxillary sinusitis Take 2 tablets by mouth once daily for 5 days. 10 tablet 0 03/13/2022 03/18/2022 Active Comment on above: Take 2 tablets by mo [facility] once daily for 5 days. Take 4 tablets by [facility] once daily for 2 days, THEN 3 tablets once daily for 1 day, THEN 2 tablets once daily for 1 day, THEN 1 tablet once daily for 1 day. Take 5 tablets by [facility] once daily for 3 days, THEN 4 tablets once daily for 2 days, THEN 3 tablets once daily for 2 days, THEN 2 tablets once daily for 2 days, THEN 1 tablet once daily for 2 days. Take 2 tablets by [facility] once daily. Take 2 tablets by [facility] once daily for 7 days. pseudoephedrine hydrochloride 30 mg oral tablet (3 sources) alpha-Adrenergic Agonist Start: 12-11-19 End: 12-18-19 take 1 tablet by mouth every six hours as needed pseudoephedrine (SUDAFED) 30 mg tablet Indications: Acute recurrent sinusitis, unspecified location Take 1 tablet by mouth every 6 hours as needed for cold/allergy symptoms for up to 7 days. 28 tablet 12/11/2024 12/18/2024 Active Start: 05-31-2024 End: 06-07-2024 take 1 tablet by mouth every six hours as needed pseudoephedrine (SUDAFED) 30 mg tablet Indications: Sinus congestion Take 1 tablet by mouth every 6 hours as needed for cold/allergy symptoms for up to 7 days. 24 tablet 0 05/31/2024 06/07/2024 Active rOPINIRole 0.5 mg oral tablet (20 sources) Nonergot Dopamine Agonist Start: 02-12-2025 End: 04-12-2025 take 0.5 tablet by mouth once daily at bedtime, then take 1 tablet by mouth once daily at bedtime, then take 2 tablets by mouth once daily at bedtime rOPINIRole (REQUIP) 0.5 mg tablet Indications: Restless leg syndrome TAKE 0.5 TABLETS BY MOUTH DAILY AT BEDTIME FOR 2 DAYS, THEN 1 TABLET DAILY AT BEDTIME FOR 5 DAYS, THEN 2 TABLETS DAILY AT BEDTIME. 198 tablet 1 03/06/2025 Active sildenafil 100 mg oral tablet (20 sources) Phosphodiesterase 5 Inhibitor Start: 10-19-2024 take 1 tablet by mouth once daily as needed sildenafil (VIAGRA) 100 mg tablet Indications: Erectile dysfunction, unspecified erectile dysfunction type Take 1 tablet by mouth once daily as needed. Take 30-60 minutes before sexual activity. 30 tablet 2 10/19/2024 Active sodium chloride 0.111 meq/ml nasal spray (20 sources) Start: 05-31-2024 End: 06-07-2024 sodium chloride (NASAL MOISTURIZING) 0.65 % nasal spray Indications: Sinus congestion Use 1 [place] in the nose as needed for cold/allergy symptoms for up to 7 days. as directed 50 mL 0 05/31/2024 06/07/2024 Active Start: 06-25-2021 End: 09-24-2022 sodium chloride 0.9 % (flush ) 10 mL (BD POSIFLUSH) SUMAtriptan 50 mg oral tablet (20 sources) Serotonin-1b and Serotonin-1d Receptor Agonist Start: 10-19-2024 End: 10-19-2024 take 1 tablet by mouth every two hours as needed for headache SUMAtriptan (IMITREX) 50 mg tablet Indications: Intractable headache, unspecified chronicity pattern, unspecified headache type Take 1 tablet (50 mg) by mouth as needed for migraine headache (see administration instructions). May repeat dose after 2 hours if needed. Maximum daily dose is 200 mg per day. 15 tablet 3 10/19/2024 Active Start: 12-27-2023 End: 05-31-2024 take 1 tablet by mouth every two hours as needed for headache, then take 4 tablets by mouth every twenty-four hours as needed for headache SUMAtriptan (IMITREX) 100 mg tablet Take 1 tablet by mouth as needed when migraine headache starts. May repeat in 2 hours if headache continues or returns. Do not exceed 4 tablets in 24 hours. 9 tablet 2 12/27/2023 05/31/2024 Discontinued Start: 09-17-2021 End: 12-08-2022 take 1 tablet by mouth every two hours as needed for headache, then take 4 tablets by mouth every twenty-four hours as needed for headache SUMAtriptan (IMITREX) 100 mg tablet Take 1 tablet by mouth as needed when migraine headache starts. May repeat in 2 hours if headache continues or returns. Do not exceed 4 tablets in 24 hours. 9 tablet 2 12/08/2022 Active Comment on above: Take 1 tablet by kalee th as needed when migraine headache starts. May repeat in 2 hours if headache continues or returns. Do not exceed 4 tablets in 24 hours. tamsulosin hydrochloride 0.4 mg oral capsule (20 sources) alpha-Adrenergic Annie Start: 5 End: 5 take 1 capsule by mouth once daily at bedtime tamsulosin (FLOMAX) 0.4 mg Indications: Hematuria, unspecified type , Flank pain TAKE 1 CAPSULE BY MOUTH EVERYDAY AT BEDTIME 90 capsule 1 03/06/2025 Active topiramate 50 mg oral tablet (20 sources) Start: 4 End: 5 take 3 tablets by mouth once daily topiramate (TOPAMAX) 50 mg tablet Indications: Intractable migraine without status migrainosus, unspecified migraine type Take 3 tablets by mouth once daily. 270 tablet 1 02/13/2025 08/12/2025 Active Start: 11-03-2021 End: 05-31-2024 take 1 tablet by mouth once daily at bedtime topiramate (TOPAMAX) 50 mg tablet Indications: Intractable migraine without status migrainosus, unspecified migraine type Take 1 tablet by mouth daily at bedtime. To take along with 100 mg to equal 150 mg at bedtime 90 tablet 1 09/22/2023 05/31/2024 Discontinued Start: 11-03-2021 End: 05-31-2024 topiramate (TOPAMAX) 100 mg tablet Indications: Intractable migraine without status migrainosus, unspecified migraine type Take one pill at bedtime 90 tablet 0 09/22/2023 05/31/2024 Discontinued Comment on above: Take one pill at bed time Take 1 tablet by kalee th daily at bedtime. To take along with 100 mg to equal 150 mg at bedtime traZODone hydrochloride 100 mg oral tablet (20 sources) Serotonin Reuptake Inhibitor Start: 3 End: 5 take 2 tablets by mouth at bedtime traZODone (DESYREL) 100 mg tablet Indications: Anxiety and depression TAKE 2 TABLETS BY MOUTH AT BEDTIME 180 tablet 1 12/21/2024 Active Start: 11-13-2021 End: 11-13-2022 take 2 tablets by mouth once daily at bedtime traZODone (DESYREL) 100 mg tablet Take 2 tablets by mouth daily at bedtime. 180 tablet 3 11/13/2021 11/13/2022 Active Comment on above: Take 2 tablets by mo uth daily at bedtime. valACYclovir 1000 mg oral tablet (20 sources) Herpesvirus Nucleoside Analog DNA Polymerase Inhibitor, Herpes Simplex Virus Nucleoside Analog DNA Polymerase Inhibitor, Herpes Zoster Virus Nucleoside Analog DNA Polymerase Inhibitor Start: 04-07-2025 End: 04-14-2025 valACYclovir (VALTREX) 1 gram tablet Take 1 tablet by mouth three times a day for 7 days. Patient should start on April 07, 2025. 21 tablet 04/07/2025 04/14/2025 Active Start: 07-13-2024 End: 07-13-2025 take 1 tablet by mouth once daily valACYclovir (VALTREX) 500 mg tablet Indications: Herpes zoster with complication Take 1 tablet by mouth once daily. 90 tablet 3 07/13/2024 07/13/2025 Active Start: 04-13-2024 End: 04-20-2024 take 1 tablet by mouth three times daily valACYclovir (VALTREX) 1 gram tablet Take 1 tablet by mouth three times a day for 7 days. 21 tablet 0 04/13/2024 04/20/2024 Active vitamin b12 1 mg/ml injectable solution (20 sources) Vitamin B12 Start: 10-20-2024 End: 09-21-2025 cyanocobalamin 1,000 mcg injection Start: 10-20-2024 End: 09-21-2025 1,000 mcg, INTRAMUSCULAR, EV ALDEN 4 WEEKS, 12 doses, First dose on Wed10/20/24 at 0700, Last dose on Wed08/24/25 at 0700 Completed/Discontinued Medications Medication Drug Class(es) Dates Sig (Normalized) Sig (Original) acyclovir 800 mg oral tablet (20 sources) Herpesvirus Nucleoside Analog DNA Polymerase Inhibitor, Herpes Simplex Virus Nucleoside Analog DNA Polymerase Inhibitor, Herpes Zoster Virus Nucleoside Analog DNA Polymerase Inhibitor Start: 11-03-2021 End: 09-07-2022 take 1 tablet by mouth five times daily as needed acyclovir (ZOVIRAX) 800 mg tablet Take one tablet by mouth 5 times a day as needed 30 tablet 5 11/03/2021 08/31/2022 Discontinued Comment on above: Take one tablet by m outh 5 times a day as needed Take 1 tablet by kalee th five times daily for 7 days. Take one tablet by mouth 5 times a day as needed alpha lipoic acid-biotin (ALAMAX CR) 600 mg- 450 mcg extended release tablet (20 sources) Start: 10-09-2021 End: 05-31-2024 take 1 tablet by mouth once daily alpha lipoic acid-biotin (ALAMAX CR) 600 mg- 450 mcg extended release tablet Indications: Other fatigue Take 1 tablet by mouth once daily. 0 10/09/2021 05/31/2024 Discontinued Start: 10-09-2021 take 1 tablet by kalee th once daily alpha lipoic acid-biotin (ALAMAX CR) 600 mg- 450 mcg extended release tablet Indications: Other fatigue Take 1 tablet by mouth once daily. 0 10/09/2021 Active Comment on above: Take 1 tablet by kalee once daily. benzonatate 100 mg oral capsule (20 sources) Non-narcotic Antitussive Start: End: take 1 capsule by mouth every eight hours as needed benzonatate (TESSALON PERLES) 100 mg capsule Take 1 capsule by mouth three times a day as needed for cough. 21 capsule 0 04/16/2024 05/31/2024 Discontinued Start: 10-05-2022 End: 02-02-2023 benzonatate (TESSALON PERLES ) 100 mg capsule Indications: Bacterial sinusitis 1 - 2 caps up to 3 times daily as needed for cough 36 capsule 0 10/05/2022 02/02/2023 Discontinued (Course of therapy completed) Start: 11-13-2021 End: 06-17-2022 take 1 capsule by mouth every eight hours as needed for cough and cough benzonatate (TESSALON PERLES) 100 mg capsule Indications: Cough Take 1 capsule by mouth three times daily as needed for cough. 90 capsule 0 11/13/2021 06/17/2022 Discontinued (Other) Comment on above: Take 1 capsule by mo [facility] three times daily as needed for cough. 1 - 2 caps up to 3 t imes daily as needed for cough betamethasone 3 mg/ml / betamethasone acetate 3 mg/ml injectable suspension (2 sources) Corticosteroid Start: 06-09-2024 End: 06-09-2024 betamethasone acetate-betamethasone sodium phosphate 6 mg injection (CELESTONE) Start: 06-09-2024 End: 06-09-2024 betamethasone acetate-betame thasone sodium phosphate 6 mg injection (CELESTONE) brompheniramine maleate 0.4 mg/ml / dextromethorphan hydrobromide 2 mg/ml / pseudoephedrine hydrochloride 6 mg/ml oral solution (7 sources) alpha-Adrenergic Agonist, Uncompetitive I-piicxf-J-aspartate Receptor Antagonist, Sigma-1 Agonist Start: 03-09-2024 End: 05-31-2024 take 5 mL by mouth four times daily as needed Nlufyuvzbkmorvr-Uyxmoppqx-RN (BROMFED DM) 2-30-10 mg/5 mL syrup Indications: Viral URI with cough Take 5 mL by mouth four times a day as needed. 118 mL 0 03/09/2024 05/31/2024 Discontinued Budesonide / formoterol (20 sources) Corticosteroid, beta2-Adrenergic Agonist Start: 11-11-2021 End: 07-30-2022 take 2 puff(s) by inhalat ion twice daily budesonide-formoterol (SYMBICORT) 160-4.5 mcg/actuation inhaler Inhale 2 Puffs as instructed twice daily. 30.6 g 3 11/11/2021 07/30/2022 Discontinued Start: 11-11-2021 take 2 puff(s) by in halation twice daily budesonide-formoterol (SYMBICORT) 160-4.5 mcg/actuation inhaler Inhale 2 Puffs as instructed twice daily. 30.6 g 3 11/11/2021 Active Comment on above: Inhale 2 Puffs as in structed twice daily. Buffered Ascorbic Acid capsules (Pure Encapsulations) - Vitamin C (20 sources) Start: 08-25-2021 End: 05-31-2024 Buffered Ascorbic Acid capsules (Pure Encapsulations) - Vitamin C 2 capsules twice a day with or between meals 0 08/25/2021 05/31/2024 Discontinued Start: 08-25-2021 Buffered Ascor bic Acid capsules (Pure Encapsulations) - Vitamin C 2 capsules twice a day with or between meals 0 08/25/2021 Active Comment on above: 2 capsules twice a d ay with or between meals cholestyramine resin 4000 mg powder for oral suspension (20 sources) Bile Acid Sequestrant Start: 2021 End: 2023 take 2 g by mouth three times daily at mealtime cholestyramine-sucros e (QUESTRAN) 4 gram powder Indications: Bile salt-induced diarrhea Take 2 g by mouth three times daily with meals. 348.6 g 1 01/12/2022 05/31/2024 Discontinued Comment on above: Take 2 g by mouth th ree times daily with meals. desonide 0.0005 mg/mg topical ointment (4 sources) Corticosteroid Start: 2024 End: 2024 desonide (DESOWEN) 0.05 % ointment Indications: Eyelid symptom Apply to affected area two times a day for 5 days. 15 g 04/05/2025 04/10/2025 dicyclomine hydrochloride 10 mg oral capsule (20 sources) Anticholinergic Start: 2020 End: 2021 take 1 capsule by mouth at bedtime dicyclomine (BENTYL) 10 mg capsule Indications: Abdominal cramping Take 1 capsule by mouth before meals and at bedtime. 60 capsule 0 05/09/2021 07/30/2022 Discontinued Comment on above: Take 1 capsule by mo ut before meals and at bedtime. diphenhydrAMINE hydrochloride 25 mg oral capsule (20 sources) Histamine-1 Receptor Antagonist Start: 2022 End: 2023 take 1 capsule by mouth every eight hours as needed for headache and headache diphenhydrAMINE (BENADRYL) 25 mg capsule Indications: Intractable headache, unspecified chronicity pattern, unspecified headache type Take 1 capsule by mouth three times daily as needed (headache). Use as directed. 15 capsule 0 02/23/2023 05/31/2024 Discontinued Comment on above: Take 1 capsule by mo uth three times daily as needed (headache). Use as directed. docusate sodium 100 mg oral capsule (20 sources) Start: 2021 End: 2023 take 1 capsule by mouth once daily docusate sodium (COLACE) 100 mg capsule Take 1 capsule by mouth once daily. 30 capsule 0 07/30/2022 05/31/2024 Discontinued Comment on above: Take 1 capsule by mo uth once daily. [id number] 0.3 ml EPINEPHrine 1 mg/ml auto-injector (20 sources) alpha-Adrenergic Agonist, beta-Adrenergic Agonist, Catecholamine Start: 2019 End: 2023 EPINEPHrine (EPIPEN 2-ANDRE) 0.3 mg/0.3 mL auto-injector Inject 0.3 mL intramuscularly as needed (Inject in thigh as needed for anaphylaxis and call 911). GENERIC OKAY 2 Each 3 07/18/2020 05/31/2024 Discontinued Comment on above: Inject 0.3 mL intram uscularly as needed (Inject in thigh as needed for anaphylaxis and call 911). GENERIC OKAY 2 ml sodium hyaluronate 10 mg/ml prefilled syringe (3 sources) Start: 2021 End: 2021 sodium hyaluronate 20 mg injection (EUFLEXXA) Start: 02-27-2022 End: 02-27-2022 sodium hyaluronate 20 mg inj ection (EUFLEXXA) Start: 02-20-2022 End: 02-20-2022 sodium hyaluronate 20 mg inj ection (EUFLEXXA) ibuprofen 600 mg oral tablet (20 sources) Nonsteroidal Anti-inflammatory Drug Start: 02-23-2023 take 1 tablet by mouth every eight hours as needed for headache and headache ibuprofen (MOTRIN) 600 mg tablet Indications: Intractable headache, unspecified chronicity pattern, unspecified headache type Take 1 tablet by mouth every 8 hours as needed for pain (headache). 15 tablet 0 02/23/2023 Active Start: 12-31-2022 End: 01-05-2023 take 1 tablet by mouth every six hours as needed ibuprofen (MOTRIN) 600 mg tablet Take 1 tablet by mouth every 6 hours as needed for pain for up to 5 days. 20 tablet 0 12/31/2022 01/05/2023 Active Start: 09-02-2021 End: 08-18-2022 take 1 tablet by mouth every eight hours as needed ibuprofen (MOTRIN) 800 mg tablet Take 1 tablet by mouth every 8 hours as needed for pain. 20 tablet 0 09/02/2021 08/18/2022 Discontinued Comment on above: Take 1 tablet by kalee th every 8 hours as needed for pain. Take 1 tablet by kalee th every 6 hours as needed for pain for up to 5 days. Take 1 tablet by kalee th every 8 hours as needed for pain (headache). indomethacin 50 mg oral capsule (20 sources) Nonsteroidal Anti-inflammatory Drug Start: 03-31-20 23 End: 05-31-20 24 take 1 capsule by mouth three times daily at mealtime indomethacin (INDOCIN) 50 mg capsule Indications: Chronic pain of left knee Take 1 capsule by mouth three times a day with meals. 60 capsule 1 08/04/2023 05/31/2024 Discontinued Comment on above: Take 1 capsule by [facility] three times daily with meals. Take 1 capsule by [facility] three times a day with meals. ipratropium bromide 0.021 mg/actuat metered dose nasal spray (20 sources) Anticholinergic Start: 11-14-19 22 End: 07-30-20 22 Ipratropium [place] (ATROVENT) 21 mcg (0.03 %) nasal spray Indications: Chronic sinusitis, unspecified location Use 2 Sprays in the nose every 12 hours. 30 mL 1 2021 07/30/2022 Discontinued Comment on above: Use 2 Sprays in the nose every 12 hours. Melatonin-SR ([place]la[place]/Prothera) (20 sources) Start: 08-25-20 End: 05-31-20 24 Melatonin-SR (Klaire/Prothera) Take 1 capsule (3 mg) one hour before bedtime 1 Bottle 0 08/25/2021 05/31/2024 Discontinued Start: 08-25-2021 Melatonin-SR ( [place]/Prothera) Take 1 capsule (3 mg) one hour before bedtime 1 Bottle 0 08/25/2021 Active Comment on above: Take 1 capsule (3 mg ) one hour before bedtime methylPREDNISolone (12 sources) Corticosteroid Start: 01-05-2025 End: 02-09-2025 methylPREDNISolone (MEDROL DOSE-PACK) 4 mg Dose-Pack Take as instructed per package. 21 tablet 01/05/2025 02/09/2025 Discontinued Start: 01-05-2025 methylPREDNISo lone (MEDROL DOSE-PACK) 4 mg Dose-Pack Take as instructed per package. 21 tablet 01/05/2025 Active Start: 12-29-2024 End: 01-05-2025 methylPREDNISolone (MEDROL D OSE-PACK) 4 mg Dose-Pack Take as instructed per package. 21 tablet 12/29/2024 01/05/2025 Discontinued Start: 12-29-2024 methylPREDNISo lone (MEDROL DOSE-PACK) 4 mg Dose-Pack Take as instructed per package. 21 tablet 12/29/2024 Active Start: 11-09-2024 End: 11-15-2024 methylPREDNISolone (MEDROL, ANDRE,) 4 mg Dose-Pack Indications: Acute non-recurrent sinusitis, unspecified location , Multiple joint pain As instructed per package 21 tablet 11/09/2024 11/15/2024 Active Start: 05-31-2024 End: 06-06-2024 methylPREDNISolone (MEDROL, ANDRE,) 4 mg Dose-Pack Indications: Sinus congestion As instructed per package 21 tablet 0 05/31/2024 06/06/2024 Active metoclopramide 10 mg oral tablet (20 sources) Dopamine-2 Receptor Antagonist Start: 02-23-2023 End: 05-31-2024 take 1 tablet by mouth every eight hours as needed for headache and headache metoclopramide HCl (REGLAN) 10 mg tablet Indications: Intractable headache, unspecified chronicity pattern, unspecified headache type Take 1 tablet by mouth three times daily as needed. 15 tablet 0 02/23/2023 05/31/2024 Discontinued Comment on above: Take 1 tablet by kalee th three times daily as needed. naproxen 500 mg oral tablet (20 sources) Nonsteroidal Anti-inflammatory Drug Start: 08-18-2022 End: 04-22-2023 take 1 tablet by mouth twice daily as needed for pain naproxen (NAPROSYN) 500 mg tablet Indications: Contusion of right knee, initial encounter , Patellar dislocation, right, initial encounter Take 1 tablet by mouth twice daily as needed (for pain). for pain. Take with food. 50 tablet 0 08/18/2022 Active Comment on above: Take 1 tablet by kalee th twice daily as needed (for pain). for pain. Take with food. Take 1 tablet by kalee th twice daily as needed for pain for up to 14 days. Take with food. ofloxacin 3 mg/ml otic solution (12 sources) Quinolone Antimicrobial Start: 04-23-2022 End: 07-30-2022 ofloxacin (FLOXIN) 0.3 % otic solution Indications: Middle ear effusion, left Use 5 Drops in both ears once daily. 5 mL 0 04/23/2022 07/30/2022 Discontinued Comment on above: Use 5 Drops in both ears once daily. phenylephrine hydrochloride 5 mg/ml nasal spray (14 sources) alpha-1 Adrenergic Agonist Start: 04-06-2022 End: 07-30-2022 PHENYLephrine (ERWIN-SYNEPHRINE) 0.5 % spry Indications: Bacterial sinusitis Use 1 Holton in each nostril every 6 hours as needed. 10 mL 1 04/06/2022 07/30/2022 Discontinued Comment on above: Use 1 Holton in each nostril every 6 hours as needed. polyethylene glycol 3350 66931 mg powder for oral solution (20 sources) Osmotic Laxative Start: 07-30-2022 End: 05-31-2024 polyethylene glycol 3350 (MIRALAX) 17 gram/dose powder Take 17 g by mouth as directed. Dissolve dose in 4 - 8 ounces of liquid and take as directed. 289 g 0 07/30/2022 05/31/2024 Discontinued Start: 07-30-2022 End: 08-10-2022 polyethylene glycol 3350 (NH RALAX) 17 gram/dose powder Take 17 g by mouth as directed. Dissolve dose in 4 - 8 ounces of liquid and take as directed. 235 g 0 07/30/2022 08/10/2022 Discontinued Comment on above: Take 17 g by mouth a s directed. Dissolve dose in 4 - 8 ounces of liquid and take as directed. prazosin 1 mg oral capsule (20 sources) alpha-Adrenergic Annie Start: 06-16-2021 End: 07-30-2022 take 1 capsule by mouth once daily at bedtime prazosin (MINIPRESS) 1 mg cap Take 1 capsule by mouth daily at bedtime. 90 capsule 1 06/16/2021 07/30/2022 Discontinued Comment on above: Take 1 capsule by mo ut daily at bedtime. Quercetin (20 sources) Start: 08-25-2021 End: 07-30-[address] (Pure Encapsulations) Take 2 capsules twice daily between meals. 0 08/25/2021 07/30/2022 Discontinued Start: 08-25-[address] (Pure Encapsulations) Take 2 capsules twice daily between meals. 0 08/25/2021 Active Comment on above: Take 2 capsules twic e daily between meals. ResveraCel (Jolie) (20 sources) Start: End: take 2 capsules by mouth once daily ResveraCel (Jolie) Indications: Post-COVID syndrome , Polymyalgia (HCC) Take 2 capsules by mouth once daily. 0 09/18/2021 07/30/2022 Discontinued Start: 09-18-2021 take 2 capsules by m outh once daily ResveraCel (Jolie) Indications: Post-COVID syndrome , Polymyalgia (HCC) Take 2 capsules by mouth once daily. 0 09/18/2021 Active Comment on above: Take 2 capsules by m outh once daily. selenium sulfide 25 mg/ml medicated shampoo (20 sources) Start: 09-03-2021 End: 05-31-2024 selenium sulfide 2.5 % lotn Apply to eyebrows and davila region twice a week. allow to remain on for 5-10 minutes and rinse. 120 mL 1 09/03/2021 05/31/2024 Discontinued Comment on above: Apply to eyebrows an d davila region twice a week. allow to remain on for 5-10 minutes and rinse. 1 ml triamcinolone acetonide 40 mg/ml injection (10 sources) Corticosteroid Start: 06-09-2024 End: 06-09-2024 triamcinolone acetonide 40 mg injection (KeNALog 40) Start: 06-09-2024 End: 06-09-2024 triamcinolone acetonide 40 m g injection (KeNALog 40) Start: 05-23-2024 End: 06-06-2024 triamcinolone acetonide (SATHYA ALOG) 0.5 % cream Indications: Dermatitis Apply as directed to affected area twice daily. 30 g 0 05/23/2024 06/06/2024 Active Start: 07-12-2023 End: 07-12-2023 triamcinolone acetonide 40 m g injection (KeNALog 40) Start: 05-13-2023 End: 05-13-2023 triamcinolone acetonide 40 m g injection (KeNALog 40) Start: 02-02-2023 End: 02-02-2023 triamcinolone acetonide 40 m g injection (KeNALog 40) Start: 07-02-2022 End: 07-02-2022 triamcinolone acetonide 40 m g injection (KeNALog 40) Vitamin D3 5000 International Units (Pure Encapsulations) (20 sources) Start: 08-25-2021 End: 05-31-2024 take 1 capsule by mouth once daily at mealtime Vitamin D3 5000 International Units (Pure Encapsulations) Take 1 capsule by mouth daily with food. 1 Bottle 1 08/25/2021 05/31/2024 Discontinued Start: 08-25-2021 take 1 capsule by mo uth once daily at mealtime Vitamin D3 5000 International Units (Pure Encapsulations) Take 1 capsule by mouth daily with food. 1 Bottle 1 08/25/2021 Active Comment on above: Take 1 capsule by mo uth daily with food. Zinc [place] ([employer]) (20 sources) Start: 08-25-2021 End: 05-31-2024 take 1 capsule by mouth once daily at mealtime Zinc [place] ([employer]) Take 1 capsule by mouth daily with food. 0 08/25/2021 05/31/2024 Discontinued Start: 08-25-2021 take 1 capsule by mo uth once daily at mealtime Zinc [place] ([employer]) Take 1 capsule by mouth daily with food. 0 08/25/2021 Active Comment on above: Take 1 capsule by mo uth daily with food. Problems Active Problems Problem Classification Problem Date Documented Da te Episodic/Chronic Anxiety disorders (20 sources) Mixed anxiety and depressive disorder; Translations: [Anxiety disorder, unspecified] Onset: 07-31-2021 07-31-2021 Chronic Asthma (20 sources) Moderate asthma; Translations: [Unspecified asthma, uncomplicated] Onset: 04-01-2017 Resolved: 07-22-2021 07-31-2021 Chronic Conditions associated with dizziness or vertigo (1 source) Benign paroxysmal positional vertigo; Translations: [Benign paroxysmal vertigo, left ear] Episodic Disorders of lipid metabolism (2 sources) Dyslipidemia; Translations: [Hyperlipidemia, unspecified] Onset: 06-22-2024 05-31-2024 Chronic Diverticulosis and diverticulitis (20 sources) Diverticular disease; Translations: [Diverticulosis of intestine, part unspecified, without perforation or abscess without bleeding] Onset: 03-22-2019 03-22-2019 Chronic Fracture of upper limb (2 sources) Fracture of unspecified phalanx of unspecified finger, initial encounter for closed fracture; Translations: [Closed fracture of phalanx of digit of hand, initial encounter] Onset: 03-07-2025 Episodic Headache; including migraine (20 sources) Migraine with aura; Translations: [Migraine with aura, not intractable, without status migrainosus] Onset: 04-01-2017 01-20-2018 Chronic Headache; including migraine (1 source) Headache; including migraine; Translations: [Intractable headache, unspecified chronicity pattern, unspecified headache type] Onset: 10-19-2024 Mood disorders (1 source) Severe major depression, single episode, without psychotic features; Translations: [Major depressive disorder, single episode, severe without psychotic features] 07-31-2024 Chronic Mood disorders (2 sources) Mood disorders; Translations: [Anxiety and depression] Onset: 07-31-2021 Mycoses (3 sources) Dermal mycosis; Translations: [Superficial mycosis, unspecified] Onset: 04-23-2025 Episodic Nutritional deficiencies (3 sources) Vitamin D deficiency; Translations: [Vitamin D deficiency, unspecified] Onset: 06-22-2024 05-31-2024 Chronic Osteoarthritis (20 sources) Osteoarthritis of right knee joint; Translations: [Unilateral primary osteoarthritis, right knee] Onset: 09-04-2015 09-04-2015 Chronic Other aftercare (1 source) Removal of sutures done; Translations: [Encounter for removal of sutures] 08-23-2024 Episodic Other aftercare (1 source) Post-discharge follow-up; Translations: [Encounter for follow-up examination after completed treatment for conditions other than malignant neoplasm] 04-23-2025 Episodic Other aftercare (1 source) Encounter for follow-up examination after completed treatment for conditions other than malignant neoplasm; Translations: [Hospital discharge follow-up] Onset: 04-23-2025 Episodic Other circulatory disease (1 source) Pulmonary congestion ; Translations: [Other specified symptoms and signs involving the circulatory and respiratory systems] 08-17-2023 Episodic Other connective tissue disease (1 source) Presence of left artificial knee joint; Translations: [Presence of left artificial knee joint] Onset: 06-13-2025 Chronic Other connective tissue disease (1 source) Pain in right hand; Translations: [Pain in right hand] 12-21-2024 Episodic Other connective tissue disease (2 sources) Tendonitis of right wrist; Translations: [Other enthesopathies, not elsewhere classified] 12-29-2024 Episodic Other ear and sense organ disorders (1 source) Acute otitis externa of left ear; Translations: [Unspecified acute noninfective otitis externa, left ear] 12-23-2023 Episodic Other eye disorders (20 sources) Vitreous syneresis; Translations: [Other vitreous opacities, bilateral] Onset: 08-12-2021 08-12-2021 Chronic Other eye disorders (1 source) Eyelid finding; Translations: [Unspecified disorder of eyelid] 04-05-2025 Episodic Other gastrointestinal disorders (1 source) Non-infective diarrhea; Translations: [Other intestinal malabsorption] Chronic Other gastrointestinal disorders (1 source) Alteration in bowel elimination; Translations: [Change in bowel habit] Episodic Other gastrointestinal disorders (1 source) Diarrhea; Translations: [Diarrhea, unspecified] Episodic Other hereditary and degenerative nervous system conditions (20 sources) Restless legs; Translations: [Restless legs syndrome] Onset: 04-01-2017 04-01-2017 Chronic Other hereditary and degenerative nervous system conditions (1 source) Restless legs syndrome; Translations: [Restless leg syndrome] Onset: 04-01-2017 Chronic Other inflammatory condition of skin (2 sources) Pruritus, unspecified; Translations: [Unspecified pruritic disorder] Onset: 04-23-2025 04-23-2025 Episodic Other injuries and conditions due to external causes (1 source) Injury of right knee; Translations: [Unspecified injury of right lower leg, subsequent encounter] Episodic Other lower respiratory disease (1 source) Cough; Translations: [Acute cough] 08-17-2023 Episodic Other male genital disorders (2 sources) Male erectile dysfunction, unspecified; Translations: [Impotence of organic origin] Onset: 10-19-2024 10-19-2024 Chronic Other non-traumatic joint disorders (1 source) Multiple joint pain; Translations: [Pain in unspecified joint] 11-09-2024 Episodic Other non-traumatic joint disorders (5 sources) Pain in wrist; Translations: [Pain in right wrist] 11-21-2024 Episodic Other nutritional; endocrine; and metabolic disorders (1 source) Severe obesity; Translations: [Morbid (severe) obesity due to excess calories] Chronic Other nutritional; endocrine; and metabolic disorders (20 sources) Obese class II; Translations: [Obesity, unspecified] Onset: 05-31-2024 05-31-2024 Chronic Other nutritional; endocrine; and metabolic disorders (1 source) Obesity, unspecified; Translations: [Obesity, Class II, BMI 35-39.9] Onset: 05-31-2024 Chronic Other skin disorders (3 sources) Eruption; Translations: [Rash and other nonspecific skin eruption] 02-25-2024 Episodic Other upper respiratory disease (20 sources) Allergic rhinitis due to pollen; Translations: [Allergic rhinitis due to pollen] Onset: 03-13-2020 03-13-2020 Chronic Other upper respiratory disease (20 sources) Allergic rhinitis due to animal hair and dander; Translations: [Allergic rhinitis due to animal (cat) (dog) hair and dander] Onset: 07-16-2020 07-16-2020 Chronic Other upper respiratory disease (20 sources) Allergic rhinitis caused by mold; Translations: [Other allergic rhinitis] Onset: 10-29-2020 10-29-2020 Chronic Other upper respiratory disease (20 sources) Allergic rhinitis due to house dust mite; Translations: [Other allergic rhinitis] Onset: 03-26-2021 03-26-2021 Chronic Other upper respiratory disease (1 source) Seasonal allergic rhinitis; Translations: [Other seasonal allergic rhinitis] Chronic Other upper respiratory disease (1 source) Nasal congestion; Translations: [Nasal congestion] 02-25-2024 Episodic Other upper respiratory disease (3 sources) Congestion of nasal sinus; Translations: [Nasal congestion] 05-31-2024 Episodic Other upper respiratory infections (20 sources) Recurrent sinusitis; Translations: [Chronic sinusitis, unspecified] Onset: 11-11-2021 Resolved: 05-15-2025 Chronic Otitis media and related conditions (3 sources) Finding of fluid behind tympanic membrane; Translations: [Unspecified nonsuppurative otitis media, left ear] Onset: 03-22-2025 Episodic Residual codes; unclassified (20 sources) Obstructive sleep apnea syndrome; Translations: [Obstructive sleep apnea (adult) (pediatric)] Onset: 06-28-2020 06-28-2020 Chronic Residual codes; unclassified (1 source) Medical care unavailable; Translations: [Procedure and treatment not carried out for other reasons] 05-22-2024 Episodic Residual codes; unclassified (2 sources) Needs assistance with community resources; Translations: [Other specified health status] 09-22-2024 Episodic Superficial injury; contusion (1 source) Contusion of right knee; Translations: [Contusion of right knee, initial encounter] Episodic Syncope (3 sources) Syncope; Translations: [Syncope and collapse] Episodic Unclassified (1 source) Acute left-sided low back pain without sciatica; Translations: [Acute left-sided low back pain without sciatica] Onset: 12-08-2022 Viral infection (5 sources) Disease caused by 2019-nCoV; Translations: [COVID-19] Onset: 07-13-2024 04-16-2024 Episodic Past or Other Problems Problem Classification Problem Date Documented Date Episodic/Chronic Abdominal pain (20 sources) Left flank pain; Translations: [Unspecified abdominal pain] Onset: 09-02-2021 Resolved: 05-15-2025 09-02-2021 Episodic Administrative/social admission (6 sources) First encounter by subject; Translations: [Persons encountering health services in other specified circumstances] Onset: 05-31-2024 05-31-2024 Episodic Allergic reactions (20 sources) Contact dermatitis; Translations: [Unspecified contact dermatitis, unspecified cause] Onset: 09-07-2016 Resolved: 05-15-2025 09-07-2016 Episodic Blindness and vision defects (20 sources) Disorder of refraction; Translations: [Unspecified disorder of refraction] Onset: 08-12-2021 08-12-2021 Episodic Calculus of urinary tract (20 sources) Kidney stone; Translations: [Calculus of kidney] Onset: 09-02-2021 09-02-2021 Episodic Chronic obstructive pulmonary disease and bronchiectasis (20 sources) Mucopurulent chronic bronchitis; Translations: [Mucopurulent chronic bronchitis] Onset: 03-13-2020 Resolved: 05-15-2025 03-13-2020 Chronic Diabetes mellitus without complication (6 sources) Prediabetes; Translations: [Prediabetes] Onset: 06-22-2024 05-31-2024 Episodic Fracture of lower limb (20 sources) Closed fracture of right foot; Translations: [Unspecified fracture of right foot, initial encounter for closed fracture] Onset: 05-09-2019 Resolved: 05-15-2025 05-09-2019 Episodic Genitourinary symptoms and ill-defined conditions (20 sources) Malodorous urine; Translations: [Unspecified abnormal findings in urine] Onset: 09-02-2021 Resolved: 05-15-2025 09-02-2021 Episodic Headache; including migraine (20 sources) Headache; Translations: [Chronic nonintractable headache] Onset: 05-09-2019 05-09-2019 Episodic Immunizations and screening for infectious disease (3 sources) Vaccination given; Translations: [Encounter for immunization] Onset: 07-13-2024 08-08-2024 Episodic Joint disorders and dislocations; trauma-related (20 sources) Dislocation of patellofemoral joint; Translations: [Unspecified dislocation of right patella, initial encounter] Onset: 08-19-2015 Resolved: 09-04-2015 Episodic Malaise and fatigue (2 sources) Fatigue; Translations: [Other fatigue] Onset: 08-23-2024 08-23-2024 Episodic Nausea and vomiting (20 sources) Nausea; Translations: [Nausea] Onset: 07-29-2022 Resolved: 05-15-2025 Episodic Nutritional deficiencies (5 sources) Cobalamin deficiency; Translations: [Deficiency of other specified B group vitamins] Onset: 06-22-2024 05-31-2024 Episodic Open wounds of extremities (1 source) Laceration without foreign body, left foot, initial encounter; Translations: [Laceration of left foot, initial encounter] Onset: 08-18-2024 Episodic Other aftercare (20 sources) Surgical follow-up; Translations: [Encounter for other specified surgical aftercare] Onset: 01-19-2017 Resolved: 06-07-2020 06-07-2020 Episodic Other aftercare (1 source) Encounter for removal of sutures; Translations: [Visit for suture removal] Onset: 08-23-2024 Episodic Other connective tissue disease (20 sources) Tendinitis of left posterior tibial tendon; Translations: [Posterior tibial tendinitis, left leg] Onset: 02-01-2018 02-01-2018 Episodic Other connective tissue disease (1 source) Other enthesopathies, not elsewhere classified; Translations: [Right wrist tendinitis] Onset: 12-29-2024 Episodic Other ear and sense organ disorders (4 sources) Otalgia, left ear; Translations: [Otalgia, unspecified] Onset: 12-20-2024 12-23-2023 Episodic Other eye disorders (20 sources) Corneal subepithelial haze; Translations: [Other specified disorders of cornea, left eye] Onset: 08-12-2021 08-12-2021 Episodic Other eye disorders (20 sources) Exotropia of right eye; Translations: [Monocular exotropia, right eye] Onset: 07-07-2019 Resolved: 07-07-2019 07-07-2019 Episodic Other infections; including parasitic (20 sources) History of herpes zoster; Translations: [Personal history of other infectious and parasitic diseases] Onset: 03-13-2020 03-13-2020 Episodic Other lower respiratory disease (20 sources) Dyspnea; Translations: [Dyspnea, unspecified] Onset: 07-17-2021 Resolved: 05-15-2025 11-11-2021 Episodic Other lower respiratory disease (20 sources) Pleuritic pain; Translations: [Pleurodynia] Onset: 07-17-2021 Resolved: 05-15-2025 07-31-2021 Episodic Other lower respiratory disease (20 sources) Wheezing; Translations: [Wheezing] Onset: 03-13-2020 Resolved: 07-22-2021 07-22-2021 Episodic Other non-traumatic joint disorders (20 sources) Pain in left knee; Translations: [Pain in joint, lower leg] Onset: 01-13-2021 Resolved: 04-09-2021 Episodic Other non-traumatic joint disorders (20 sources) Pain in right knee; Translations: [Pain in joint, lower leg] Onset: 09-04-2015 Resolved: 05-15-2025 09-04-2015 Episodic Other non-traumatic joint disorders (20 sources) Sinus tarsi syndrome of left ankle; Translations: [Pain in left ankle and joints of left foot] Onset: 03-16-2018 03-16-2018 Episodic Other non-traumatic joint disorders (2 sources) Pain in right wrist; Translations: [Wrist pain, acute, right] Onset: 11-21-2024 Episodic Other non-traumatic joint disorders (1 source) Effusion, left knee; Translations: [Pain and swelling of left knee] Onset: 01-27-2025 Episodic Other non-traumatic joint disorders (1 source) Pain in unspecified joint; Translations: [Multiple joint pain] Onset: 11-09-2024 Episodic Other nutritional; endocrine; and metabolic disorders (20 sources) Body mass index 40+ - severely obese; Translations: [Morbid (severe) obesity due to excess calories] Onset: 01-20-2018 Resolved: 05-15-2025 Chronic Other screening for suspected conditions (not mental disorders or infectious disease) (9 sources) Patient encounter status; Translations: [Encounter for screening for malignant neoplasm of colon] Onset: 05-31-2024 Episodic Other skin disorders (20 sources) Mass of back; Translations: [Localized swelling, mass and lump, trunk] Onset: 11-27-2016 11-27-2016 Episodic Other skin disorders (1 source) Rash and other nonspecific skin eruption; Translations: [Rash] Onset: 05-31-2024 Episodic Other upper respiratory disease (20 sources) Allergic rhinitis; Translations: [Allergic rhinitis, unspecified] Onset: 07-16-2020 Resolved: 05-15-2025 07-16-2020 Chronic Other upper respiratory disease (1 source) Nasal congestion; Translations: [Sinus congestion] Onset: 05-31-2024 Episodic Other upper respiratory infections (18 sources) Acute maxillary sinusitis; Translations: [Acute maxillary sinusitis, unspecified] Onset: 12-08-2022 Episodic Residual codes; unclassified (20 sources) History of strabismus surgery; Translations: [Other specified postprocedural states] Onset: 08-12-2021 08-12-2021 Episodic Spondylosis; intervertebral disc disorders; other back problems (20 sources) Acute low back pain; Translations: [Acute left-sided low back pain without sciatica] Onset: 12-08-2022 Resolved: 05-15-2025 12-08-2022 Episodic Suicide and intentional self-inflicted injury (1 source) Suicidal ideations; Translations: [Depression with suicidal ideation] Onset: 07-31-2024 Episodic Results Test Name Value Interpretation Reference Range Facility Basic Metabolic Profile (BMP )on 06-12-2025 BUN/CRE 11.1 RATIO Normal 08-20 [facility] Comment on above: Order Comment: 111.1 Performed By: #### L 506.0200, L503.6030, L500.2500, L503.0106, L100.0500 #### [facility] [address] [place], [address] Calcium [Mass/Vol] 8.9 mg/dL Normal 7.6-11.0 [facility] Comment on above: Order Comment: 111.1 Performed By: #### L 506.0200, L503.6030, L500.2500, L503.0106, L100.0500 #### [facility] [address] [place], [address] Chloride [Moles/Vol] 108 mmol/L Normal 98-108 [facility] Comment on above: Order Comment: 111.1 Performed By: #### L 506.0200, L503.6030, L500.2500, L503.0106, L100.0500 #### [facility] [address] [place], [address] CO2 [Moles/Vol] 21.4 mmol/L Normal 21.0-32.0 [facility] Comment on above: Order Comment: 111.1 Performed By: #### L 506.0200, L503.6030, L500.2500, L503.0106, L100.0500 #### [facility] [address] [place], [address] Creatinine [Mass/Vol] 0.85 mg/dL Normal 0.70-1.20 [facility] Comment on above: Order Comment: 111.1 Performed By: #### L 506.0200, L503.6030, L500.2500, L503.0106, L100.0500 #### [facility] [address] [place], [address] GAP 9 Normal 5-15 [facility] Comment on above: Order Comment: 111.1 Performed By: #### L 506.0200, L503.6030, L500.2500, L503.0106, L100.0500 #### [facility] [address] [place], [address] GFR/1.73 sq M.predicted among non-blacks MDRD (S/P/Bld) [Vol rate/Area] 107 mL/min/{1.73_m2} Normal >60 [facility] Comment on above: Order Comment: 111.1 Result Comment: mL/m in/1.73m2 CKD-EPI Creatinine Equation (2020) Performed By: #### L 506.0200, L503.6030, L500.2500, L503.0106, L100.0500 #### [facility] [address] [place], [address] Glucose [Mass/Vol] 82 mg/dL Normal 70-99 [facility] Comment on above: Order Comment: 111.1 Performed By: #### L 506.0200, L503.6030, L500.2500, L503.0106, L100.0500 #### [facility] [address] [place], [address] Potassium [Moles/Vol] 3.8 mmol/L Normal 3.3-5.1 [facility] Comment on above: Order Comment: 111.1 Performed By: #### L 506.0200, L503.6030, L500.2500, L503.0106, L100.0500 #### [facility] [address] [place], [address] Sodium [Moles/Vol] 139 mmol/L Normal 133-145 [facility] Comment on above: Order Comment: 111.1 Performed By: #### L 506.0200, L503.6030, L500.2500, L503.0106, L100.0500 #### [facility] [address] [place], [address] Urea nitrogen [Mass/Vol] 10 mg/dL Normal 4-19 [facility] Comment on above: Order Comment: 111.1 Performed By: #### L 506.0200, L503.6030, L500.2500, L503.0106, L100.0500 #### [facility] [address] [place], [address] CBC-Complete Blood Cnt No Di ffon 06-12-2025 Erythrocyte distribution width (RBC) [Ratio] 14.7 % High 11.6-14.6 [facility] Comment on above: Order Comment: 111.1 Performed By: #### L 506.0200, L503.6030, L500.2500, L503.0106, L100.0500 #### [facility] [address] [place], [address] Hematocrit (Bld) [Volume fraction] 35.1 % Low 40-54 [facility] Comment on above: Order Comment: 111.1 Performed By: #### L 506.0200, L503.6030, L500.2500, L503.0106, L100.0500 #### [facility] [address] [place], [address] Hemoglobin (Bld) [Mass/Vol] 11.4 g/dL Low 13.0-16.5 [facility] Comment on above: Order Comment: 111.1 Performed By: #### L 506.0200, L503.6030, L500.2500, L503.0106, L100.0500 #### [facility] [address] [place], [address] MCH (RBC) [Entitic mass] 28.6 pg Normal 27.0-32.0 [facility] Comment on above: Order Comment: 111.1 Performed By: #### L 506.0200, L503.6030, L500.2500, L503.0106, L100.0500 #### [facility] [address] [place], [address] MCHC (RBC) [Mass/Vol] 32.5 g/dL Normal 32-36 [facility] Comment on above: Order Comment: 111.1 Performed By: #### L 506.0200, L503.6030, L500.2500, L503.0106, L100.0500 #### [facility] [address] [place], [address] MCV (RBC) [Entitic vol] 88.0 fL Normal 80-94 [facility] Comment on above: Order Comment: 111.1 Performed By: #### L 506.0200, L503.6030, L500.2500, L503.0106, L100.0500 #### [facility] [address] [place], [address] Platelet mean volume (Bld) [Entitic vol] 9.4 fL Normal 6.2-12.0 [facility] Comment on above: Order Comment: 111.1 Performed By: #### L 506.0200, L503.6030, L500.2500, L503.0106, L100.0500 #### [facility] [address] [place], [address] Platelets (Bld) [#/Vol] 347 10*3/uL Normal 150-450 [facility] Comment on above: Order Comment: 111.1 Performed By: #### L 506.0200, L503.6030, L500.2500, L503.0106, L100.0500 #### [facility] [address] [place], [address] RBC (Bld) [#/Vol] 3.99 10*6/uL Low 4.6-6.2 [facility] Comment on above: Order Comment: 111.1 Performed By: #### L 506.0200, L503.6030, L500.2500, L503.0106, L100.0500 #### [facility] [address] [place], [address] RDW SD 47.8 fl High 35.1-43.9 [facility] Comment on above: Order Comment: 111.1 Performed By: #### L 506.0200, L503.6030, L500.2500, L503.0106, L100.0500 #### [facility] [address] [place], [address] WBC (Bld) [#/Vol] 5.5 10*3/uL Normal 4.4-11.0 [facility] Comment on above: Order Comment: 111.1 Performed By: #### L 506.0200, L503.6030, L500.2500, L503.0106, L100.0500 #### [facility] [address] [place], [address] Folates,Serum (Folic Acid)on 06-12-2025 FOLATES,SERUM 3.65 ng/mL Low 4.60-34.80 [facility] Comment on above: Order Comment: 111.1 Y Performed By: #### L 506.0200, L503.6030, L500.2500, L503.0106, L100.0500 #### [facility] [address] [place], [address] Iron+Iron Binding Capacityon 06-12-2025 Iron [Mass/Vol] 64 ug/dL Low 65-175 [facility] Comment on above: Order Comment: 111.1 Performed By: #### L 506.0200, L503.6030, L500.2500, L503.0106, L100.0500 #### [facility] [address] [place], [address] IRON SATURATION 25.0 Normal 9-55 [facility] Comment on above: Order Comment: 111.1 Performed By: #### L 506.0200, L503.6030, L500.2500, L503.0106, L100.0500 #### [facility] [address] [place], [address] TIBC 255 ug/dL Normal 250-450 [facility] Comment on above: Order Comment: 111.1 Performed By: #### L 506.0200, L503.6030, L500.2500, L503.0106, L100.0500 #### [facility] [address] [place], [address] UIBC 191 ug/dL Low 228-428 [facility] Comment on above: Order Comment: 111.1 Performed By: #### L 506.0200, L503.6030, L500.2500, L503.0106, L100.0500 #### [facility] [address] [place], [address] Vitamin B12on 06-12-2025 Cobalamin (Vitamin B12) [Mass/Vol] 318 pg/mL Normal 180-914 [facility] Comment on above: Order Comment: 111.1 Performed By: #### L 506.0200, L503.6030, L500.2500, L503.0106, L100.0500 #### [facility] [address] [place], [address] Basic Metabolic Profile (BMP )on 06-05-2025 BUN/CRE 15.3 RATIO Normal 10-20 [facility] Comment on above: Order Comment: 111.1 Performed By: #### L 500.2500, L100.0500 #### [facility] [address] [place], [address] Calcium [Mass/Vol] 8.7 mg/dL Normal 7.6-11.0 [facility] Comment on above: Order Comment: 111.1 Performed By: #### L 500.2500, L100.0500 #### [facility] [address] [place], [address] Chloride [Moles/Vol] 107 mmol/L Normal 98-108 [facility] Comment on above: Order Comment: 111.1 Performed By: #### L 500.2500, L100.0500 #### [facility] [address] [place], [address] CO2 [Moles/Vol] 20.7 mmol/L Low 21.0-32.0 [facility] Comment on above: Order Comment: 111.1 Performed By: #### L 500.2500, L100.0500 #### [facility] [address] [place], [address] Creatinine [Mass/Vol] 0.94 mg/dL Normal 0.70-1.20 [facility] Comment on above: Order Comment: 111.1 Performed By: #### L 500.2500, L100.0500 #### [facility] [address] [place], [address] GAP 11 Normal 5-15 [facility] Comment on above: Order Comment: 111.1 Performed By: #### L 500.2500, L100.0500 #### [facility] [address] [place], [address] GFR/1.73 sq M.predicted among non-blacks MDRD (S/P/Bld) [Vol rate/Area] 99 mL/min/{1.73_m2} Normal >60 [facility] Comment on above: Order Comment: 111.1 Result Comment: mL/m in/1.73m2 CKD-EPI Creatinine Equation (2020) Performed By: #### L 500.2500, L100.0500 #### [facility] [address] [place], [address] Glucose [Mass/Vol] 82 mg/dL Normal 70-99 [facility] Comment on above: Order Comment: 111.1 Performed By: #### L 500.2500, L100.0500 #### [facility] [address] [place], [address] Potassium [Moles/Vol] 3.9 mmol/L Normal 3.3-5.1 [facility] Comment on above: Order Comment: 111.1 Performed By: #### L 500.2500, L100.0500 #### [facility] [address] [place], [address] Sodium [Moles/Vol] 138 mmol/L Normal 133-145 [facility] Comment on above: Order Comment: 111.1 Performed By: #### L 500.2500, L100.0500 #### [facility] [address] [place], [address] Urea nitrogen [Mass/Vol] 14 mg/dL Normal 4-19 [facility] Comment on above: Order Comment: 111.1 Performed By: #### L 500.2500, L100.0500 #### [facility] [address] [place], [address] CBC-Complete Blood Cnt No Di ffon 06-05-2025 Erythrocyte distribution width (RBC) [Ratio] 14.7 % High 11.6-14.6 [facility] Comment on above: Order Comment: 111.1 Performed By: #### L 500.2500, L100.0500 #### [facility] [address] [place], [address] Hematocrit (Bld) [Volume fraction] 33.7 % Low 40-54 [facility] Comment on above: Order Comment: 111.1 Performed By: #### L 500.2500, L100.0500 #### [facility] [address] [place], [address] Hemoglobin (Bld) [Mass/Vol] 11.1 g/dL Low 13.0-16.5 [facility] Comment on above: Order Comment: 111.1 Performed By: #### L 500.2500, L100.0500 #### [facility] [address] [place], [address] MCH (RBC) [Entitic mass] 28.8 pg Normal 27.0-32.0 [facility] Comment on above: Order Comment: 111.1 Performed By: #### L 500.2500, L100.0500 #### [facility] [address] [place], [address] MCHC (RBC) [Mass/Vol] 32.9 g/dL Normal 32-36 [facility] Comment on above: Order Comment: 111.1 Performed By: #### L 500.2500, L100.0500 #### [facility] [address] [place], [address] MCV (RBC) [Entitic vol] 87.5 fL Normal 80-94 [facility] Comment on above: Order Comment: 111.1 Performed By: #### L 500.2500, L100.0500 #### [facility] [address] [place], [address] Platelet mean volume (Bld) [Entitic vol] 9.0 fL Normal 6.2-12.0 [facility] Comment on above: Order Comment: 111.1 Performed By: #### L 500.2500, L100.0500 #### [facility] [address] [place], [address] Platelets (Bld) [#/Vol] 354 10*3/uL Normal 150-450 [facility] Comment on above: Order Comment: 111.1 Performed By: #### L 500.2500, L100.0500 #### [facility] [address] [place], [address] RBC (Bld) [#/Vol] 3.85 10*6/uL Low 4.6-6.2 [facility] Comment on above: Order Comment: 111.1 Performed By: #### L 500.2500, L100.0500 #### [facility] [address] [place], [address] RDW SD 47.5 fl High 35.1-43.9 [facility] Comment on above: Order Comment: 111.1 Performed By: #### L 500.2500, L100.0500 #### [facility] [address] [place], [address] WBC (Bld) [#/Vol] 7.6 10*3/uL Normal 4.4-11.0 [facility] Comment on above: Order Comment: 111.1 Performed By: #### L 500.2500, L100.0500 #### [facility] [address] [place], [address] CBC-Complete Blood Cnt No Di ffon 05-28-2025 Erythrocyte distribution width (RBC) [Ratio] 15.1 % High 11.6-14.6 [facility] Comment on above: Order Comment: 111-1 Performed By: #### L 100.0500, L500.4050 #### [facility] [address] [place], [address] Hematocrit (Bld) [Volume fraction] 35.6 % Low 40-54 [facility] Comment on above: Order Comment: 111-1 Performed By: #### L 100.0500, L500.4050 #### [facility] [address] [place], [address] Hemoglobin (Bld) [Mass/Vol] 11.9 g/dL Low 13.0-16.5 [facility] Comment on above: Order Comment: 111-1 Performed By: #### L 100.0500, L500.4050 #### [facility] [address] [place], [address] MCH (RBC) [Entitic mass] 29.0 pg Normal 27.0-32.0 [facility] Comment on above: Order Comment: 111-1 Performed By: #### L 100.0500, L500.4050 #### [facility] [address] [place], [address] MCHC (RBC) [Mass/Vol] 33.4 g/dL Normal 32-36 [facility] Comment on above: Order Comment: 111-1 Performed By: #### L 100.0500, L500.4050 #### [facility] [address] [place], [address] MCV (RBC) [Entitic vol] 86.8 fL Normal 80-94 [facility] Comment on above: Order Comment: 111-1 Performed By: #### L 100.0500, L500.4050 #### [facility] [address] [place], [address] Platelet mean volume (Bld) [Entitic vol] 9.8 fL Normal 6.2-12.0 [facility] Comment on above: Order Comment: 111-1 Performed By: #### L 100.0500, L500.4050 #### [facility] [address] [place], [address] Platelets (Bld) [#/Vol] 306 10*3/uL Normal 150-450 [facility] Comment on above: Order Comment: 111-1 Performed By: #### L 100.0500, L500.4050 #### [facility] [address] [place], [address] RBC (Bld) [#/Vol] 4.10 10*6/uL Low 4.6-6.2 [facility] Comment on above: Order Comment: 111-1 Performed By: #### L 100.0500, L500.4050 #### [facility] [address] [place], [address] RDW SD 48.1 fl High 35.1-43.9 [facility] Comment on above: Order Comment: 111-1 Performed By: #### L 100.0500, L500.4050 #### [facility] [address] [place], [address] WBC (Bld) [#/Vol] 6.9 10*3/uL Normal 4.4-11.0 [facility] Comment on above: Order Comment: 111-1 Performed By: #### L 100.0500, L500.4050 #### [facility] [address] [place], [address] Comprehensive Metabolic Prof ilon 05-28-2025 Albumin [Mass/Vol] 3.8 g/dL Normal 3.5-5.0 [facility] Comment on above: Order Comment: 111-1 Performed By: #### L 100.0500, L500.4050 #### [facility] [address] [place], [address] Albumin/Globulin [Mass ratio] 1.4 {ratio} Normal 0.9-2.4 [facility] Comment on above: Order Comment: 111-1 Performed By: #### L 100.0500, L500.4050 #### [facility] [address] [place], [address] ALK PHOS 119 U/L Normal 40-129 [facility] Comment on above: Order Comment: 111-1 Performed By: #### L 100.0500, L500.4050 #### [facility] [address] [place], [address] ALT [Catalytic activity/Vol] 38 U/L Normal <=46 [facility] Comment on above: Order Comment: 111-1 Performed By: #### L 100.0500, L500.4050 #### [facility] [address] [place], [address] AST [Catalytic activity/Vol] 38 U/L Normal <=37 [facility] Comment on above: Order Comment: 111-1 Performed By: #### L 100.0500, L500.4050 #### [facility] [address] [place], [address] Bilirubin [Mass/Vol] 0.67 mg/dL Normal 0.00-1.30 [facility] Comment on above: Order Comment: 111-1 Performed By: #### L 100.0500, L500.4050 #### [facility] [address] [place], [address] BUN/CRE 13.6 RATIO Normal 10-20 [facility] Comment on above: Order Comment: 111-1 Performed By: #### L 100.0500, L500.4050 #### [facility] [address] [place], [address] Calcium [Mass/Vol] 8.6 mg/dL Normal 7.6-11.0 [facility] Comment on above: Order Comment: 111-1 Performed By: #### L 100.0500, L500.4050 #### [facility] [address] [place], [address] Chloride [Moles/Vol] 106 mmol/L Normal 98-108 [facility] Comment on above: Order Comment: 111-1 Performed By: #### L 100.0500, L500.4050 #### [facility] [address] [place], [address] CO2 [Moles/Vol] 18.5 mmol/L Low 21.0-32.0 [facility] Comment on above: Order Comment: 111-1 Performed By: #### L 100.0500, L500.4050 #### [facility] [address] [place], [address] Creatinine [Mass/Vol] 0.91 mg/dL Normal 0.70-1.20 [facility] Comment on above: Order Comment: 111-1 Performed By: #### L 100.0500, L500.4050 #### [facility] [address] [place], [address] GAP 11 Normal 5-15 [facility] Comment on above: Order Comment: 111-1 Performed By: #### L 100.0500, L500.4050 #### [facility] [address] [place], [address] GFR/1.73 sq M.predicted among non-blacks MDRD (S/P/Bld) [Vol rate/Area] 104 mL/min/{1.73_m2} Normal >60 [facility] Comment on above: Order Comment: 111-1 Result Comment: mL/m in/1.73m2 CKD-EPI Creatinine Equation (2020) Performed By: #### L 100.0500, L500.4050 #### [facility] [address] [place], [address] Globulin (S) [Mass/Vol] 2.8 g/dL Normal 2.2-4.2 [facility] Comment on above: Order Comment: 111-1 Performed By: #### L 100.0500, L500.4050 #### [facility] [address] [place], [address] Glucose [Mass/Vol] 102 mg/dL High 70-99 [facility] Comment on above: Order Comment: 111-1 Performed By: #### L 100.0500, L500.4050 #### [facility] [address] [place], [address] Potassium [Moles/Vol] 3.9 mmol/L Normal 3.3-5.1 [facility] Comment on above: Order Comment: 111-1 Performed By: #### L 100.0500, L500.4050 #### [facility] [address] [place], [address] Sodium [Moles/Vol] 136 mmol/L Normal 133-145 [facility] Comment on above: Order Comment: 111-1 Performed By: #### L 100.0500, L500.4050 #### [facility] [address] [place], [address] T PROT 6.6 g/dL Normal 5.9-8.4 [facility] Comment on above: Order Comment: 111-1 Performed By: #### L 100.0500, L500.4050 #### [facility] [address] [place], [address] Urea nitrogen [Mass/Vol] 12 mg/dL Normal 4-19 [facility] Comment on above: Order Comment: 111-1 Performed By: #### L 100.0500, L500.4050 #### [facility] [address] [place], [place], [address] CNPNon 05-16-2025 CNPN [facility] CNOVon 05-15-2025 CNOV Normal [facility] CNOVon 04-23-2025 CNOV [facility] CNCOon 04-11-2025 CNCO Letter Text [facility] CNPNon 04-11[facility]2025 [facility] SAM RAI ([id number]) 1975 M [facility] Date Time Provider Department 04/11/25 YOON ZHANG [facility] During your visit today, we recorded the following information about you: Quynh Andre 04/11/2025 2:25 PM Addendum Left voicemail, please re-schedule todays missed appointment when he phones back ALSO MAILED OUT FIRST NO SHOW LETTER Allergies As of Date: 04/11/2025 Noted Allergy Reaction BACTRIM (SULFAMETHOXAZOLE-TRIMETH*0 06/01/2015 4 - Hives ERYTHROMYCIN BASE 09/10/2016 4 - Hives 12 - Shortness of Breath SULFA (SULFONAMIDE ANTIBIOTICS) 09/10/2016 16 - Unknown Date Reviewed: 04/06/2025 Reviewed by: Di Delacruz RN - Fully Assessed Reason for Visit: Appointment [186] Cmt: Missed appointment Prescriptions as of 04/11/2025 - valACYclovir (VALTREX) 1 gram tablet Take 1 tablet by mouth three times a day for 7 days. Patient should start on April 07, 2025. - dulaglutide (TRULICITY) 1.5 mg/0.5 mL pen injector Inject 1.5 mg subcutaneously one time a week. - tamsulosin (FLOMAX) 0.4 mg TAKE 1 CAPSULE BY MOUTH EVERYDAY AT BEDTIME - rOPINIRole (REQUIP) 0.5 mg tablet TAKE 0.5 TABLETS BY MOUTH DAILY AT BEDTIME FOR 2 DAYS, THEN 1 TABLET DAILY AT BEDTIME FOR 5 DAYS, THEN 2 TABLETS DAILY AT BEDTIME. - fluticasone (FLONASE) 50 mcg/actuation nasal spray SPRAY 1 SPRAY INTO EACH NOSTRIL AT BEDTIME - topiramate (TOPAMAX) 50 mg tablet Take 3 tablets by mouth once daily. - gabapentin (NEURONTIN) 300 mg capsule Take 4 capsules by mouth as directed for 30 days. - methocarbamol (ROBAXIN) 750 mg tablet Take 1 tablet by mouth three times a day. - busPIRone (BUSPAR) 10 mg tablet Take 10 mg by mouth three times a day. - celecoxib (CELEBREX) 100 mg capsule Take 100 mg by mouth two times a day. - albuterol HFA (PROAIR HFA) 90 mcg/actuation inhaler Inhale 2 puffs as instructed every 4 hours as needed. - montelukast (SINGULAIR) 10 mg tablet TAKE 1 TABLET BY MOUTH EVERYDAY AT BEDTIME - hydrOXYzine HCl (ATARAX) 50 mg tablet TAKE 1 TABLET BY MOUTH THREE TIMES A DAY NEEDED FOR ANXIETY - FLUoxetine (PROZAC) 40 mg capsule TAKE 1 CAPSULE BY MOUTH EVERY DAY - traZODone (DESYREL) 100 mg tablet TAKE 2 TABLETS BY MOUTH AT BEDTIME - SUMAtriptan (IMITREX) 50 mg tablet Take 1 tablet (50 mg) by mouth as needed for migraine headache (see administration instructions). May repeat dose after 2 hours if needed. Maximum daily dose is 200 mg per day. - cholecalciferol, Vitamin D3, (VITAMIN D3) 1,250 mcg (50,000 unit) cap capsule Take 1 capsule by mouth one time a week for 10 doses. - sildenafil (VIAGRA) 100 mg tablet Take 1 tablet by mouth once daily as needed. Take 30-60 minutes before sexual activity. - valACYclovir (VALTREX) 500 mg tablet Take 1 tablet by mouth once daily. Facility-Administered Medications as of 04/11/2025 - cyanocobalamin 1,000 mcg injection Problem List As Of Date 04/11/2025 Noted Resolved Acute medial meniscus tear of right knee [S83.2*08/19/2015 09/04/2015 Primary osteoarthritis of right knee [M17.11] 09/04/2015 Pain in right knee [M25.561] 09/04/2015 Contact dermatitis [L25.9] 09/07/2016 Mass on back [R22.2] 11/27/2016 Aftercare following surgery [Z48.89] 01/19/2017 06/07/2020 Restless leg syndrome [G25.81] 04/01/2017 Migraine with aura and without status migrainos*04/01/2017 Mild intermittent asthma without complication [*04/01/2017 07/22/2021 Eczema [L30.9] 04/01/2017 Obesity, Class III, BMI >= 40 E66.01 [E66.813] 01/20/2018 Posterior tibial tendinitis of left leg [M76.82*02/01/2018 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] 03/16/2018 Obesity, morbid, BMI 40.0-49.9 (HCC) [E66.01] Diverticulosis [K57.90] 03/22/2019 Chronic nonintractable headache [R51.9, G89.29] 05/09/2019 Closed fracture of bone of right foot [S92.901A]05/09/2019 Intractable migraine without aura and without s*06/05/2019 Exotropia of right eye [H50.111] 07/07/2019 07/07/2019 Wheezing [R06.2] 03/13/2020 07/22/2021 Seasonal allergic rhinitis due to pollen [J30.1]03/13/2020 History of shingles [Z86.19] 03/13/2020 Bronchitis, mucopurulent recurrent (HCC) [J41.1]03/13/2020 S/P left knee surgery [Z98.890] 04/30/2020 LIS (obstructive sleep apnea) [G47.33] 06/28/2020 Allergic rhinitis due to animal hair and dander*07/16/2020 Allergic rhinitis [J30.9] 07/16/2020 Allergic rhinitis due to mold [J30.89] 10/29/2020 Mild persistent asthma [J45.30] 10/29/2020 07/22/2021 Chronic pain of left knee [M25.562, G89.29] 01/13/2021 04/09/2021 Allergic rhinitis due to dust mite [J30.89] 03/26/2021 Dyspnea and respiratory abnormalities [R06.00, *07/17/2021 Pleuritic chest pain [R07.81] 07/17/2021 Moderate asthma [J45.909] 07/17/2021 Anxiety and depression [F41.9, F32.A] 07/31/2021 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 [facility] [employer] Tele[employer] ([facility]) SAM RAI ([id number]) 1975 M [facility] Date Time Provider Department 04/11/25 YOON ZHANG [facility] During your visit today, we recorded the following information about you: Quynh Andre 04/11/2025 2:25 PM Signed Erroneouus encounter Allergies As of Date: 04/11/2025 Noted Allergy Reaction BACTRIM (SULFAMETHOXAZOLE-TRIMETH*0 06/01/2015 4 - Hives ERYTHROMYCIN BASE 09/10/2016 4 - Hives 12 - Shortness of Breath SULFA (SULFONAMIDE ANTIBIOTICS) 09/10/2016 16 - Unknown Date Reviewed: 04/06/2025 Reviewed by: Di Delacruz, MARCIA - Fully Assessed Reason for Visit: error [307] Prescriptions as of 04/11/2025 - valACYclovir (VALTREX) 1 gram tablet Take 1 tablet by mouth three times a day for 7 days. Patient should start on April 07, 2025. - dulaglutide (TRULICITY) 1.5 mg/0.5 mL pen injector Inject 1.5 mg subcutaneously one time a week. - tamsulosin (FLOMAX) 0.4 mg TAKE 1 CAPSULE BY MOUTH EVERYDAY AT BEDTIME - rOPINIRole (REQUIP) 0.5 mg tablet TAKE 0.5 TABLETS BY MOUTH DAILY AT BEDTIME FOR 2 DAYS, THEN 1 TABLET DAILY AT BEDTIME FOR 5 DAYS, THEN 2 TABLETS DAILY AT BEDTIME. - fluticasone (FLONASE) 50 mcg/actuation nasal spray SPRAY 1 SPRAY INTO EACH NOSTRIL AT BEDTIME - topiramate (TOPAMAX) 50 mg tablet Take 3 tablets by mouth once daily. - gabapentin (NEURONTIN) 300 mg capsule Take 4 capsules by mouth as directed for 30 days. - methocarbamol (ROBAXIN) 750 mg tablet Take 1 tablet by mouth three times a day. - busPIRone (BUSPAR) 10 mg tablet Take 10 mg by mouth three times a day. - celecoxib (CELEBREX) 100 mg capsule Take 100 mg by mouth two times a day. - albuterol HFA (PROAIR HFA) 90 mcg/actuation inhaler Inhale 2 puffs as instructed every 4 hours as needed. - montelukast (SINGULAIR) 10 mg tablet TAKE 1 TABLET BY MOUTH EVERYDAY AT BEDTIME - hydrOXYzine HCl (ATARAX) 50 mg tablet TAKE 1 TABLET BY MOUTH THREE TIMES A DAY NEEDED FOR ANXIETY - FLUoxetine (PROZAC) 40 mg capsule TAKE 1 CAPSULE BY MOUTH EVERY DAY - traZODone (DESYREL) 100 mg tablet TAKE 2 TABLETS BY MOUTH AT BEDTIME - SUMAtriptan (IMITREX) 50 mg tablet Take 1 tablet (50 mg) by mouth as needed for migraine headache (see administration instructions). May repeat dose after 2 hours if needed. Maximum daily dose is 200 mg per day. - cholecalciferol, Vitamin D3, (VITAMIN D3) 1,250 mcg (50,000 unit) cap capsule Take 1 capsule by mouth one time a week for 10 doses. - sildenafil (VIAGRA) 100 mg tablet Take 1 tablet by mouth once daily as needed. Take 30-60 minutes before sexual activity. - valACYclovir (VALTREX) 500 mg tablet Take 1 tablet by mouth once daily. Facility-Administered Medications as of 04/11/2025 - cyanocobalamin 1,000 mcg injection Problem List As Of Date 04/11/2025 Noted Resolved Acute medial meniscus tear of right knee [S83.2*08/19/2015 09/04/2015 Primary osteoarthritis of right knee [M17.11] 09/04/2015 Pain in right knee [M25.561] 09/04/2015 Contact dermatitis [L25.9] 09/07/2016 Mass on back [R22.2] 11/27/2016 Aftercare following surgery [Z48.89] 01/19/2017 06/07/2020 Restless leg syndrome [G25.81] 04/01/2017 Migraine with aura and without status migrainos*04/01/2017 Mild intermittent asthma without complication [*04/01/2017 07/22/2021 Eczema [L30.9] 04/01/2017 Obesity, Class III, BMI >= 40 E66.01 [E66.813] 01/20/2018 Posterior tibial tendinitis of left leg [M76.82*02/01/2018 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] 03/16/2018 Obesity, morbid, BMI 40.0-49.9 (HCC) [E66.01] Diverticulosis [K57.90] 03/22/2019 Chronic nonintractable headache [R51.9, G89.29] 05/09/2019 Closed fracture of bone of right foot [S92.901A]05/09/2019 Intractable migraine without aura and without s*06/05/2019 Exotropia of right eye [H50.111] 07/07/2019 07/07/2019 Wheezing [R06.2] 03/13/2020 07/22/2021 Seasonal allergic rhinitis due to pollen [J30.1]03/13/2020 History of shingles [Z86.19] 03/13/2020 Bronchitis, mucopurulent recurrent (HCC) [J41.1]03/13/2020 S/P left knee surgery [Z98.890] 04/30/2020 LIS (obstructive sleep apnea) [G47.33] 06/28/2020 Allergic rhinitis due to animal hair and dander*07/16/2020 Allergic rhinitis [J30.9] 07/16/2020 Allergic rhinitis due to mold [J30.89] 10/29/2020 Mild persistent asthma [J45.30] 10/29/2020 07/22/2021 Chronic pain of left knee [M25.562, G89.29] 01/13/2021 04/09/2021 Allergic rhinitis due to dust mite [J30.89] 03/26/2021 Dyspnea and respiratory abnormalities [R06.00, *07/17/2021 Pleuritic chest pain [R07.81] 07/17/2021 Moderate asthma [J45.909] 07/17/2021 Anxiety and depression [F41.9, F32.A] 07/31/2021 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 [facility] SAM RAI ([id number]) 1975 M T Date Time Provider Department 04/10/25 YOON ZHANG [facility] During your visit today, we recorded the following information about you: Precious Rogers MA 04/10/2025 9:03 AM Signed Left VM reminding pt of appointment on 04/11/25 and to have xrays completed prior to the day of his appointment. Pt was given hours and locations to have this completed and was advised to call the office with any questions or concerns. Precious Rogers MA April 10, 2025 9:03 AM Allergies As of Date: 04/10/2025 Noted Allergy Reaction BACTRIM (SULFAMETHOXAZOLE-TRIMETH*0 06/01/2015 4 - Hives ERYTHROMYCIN BASE 09/10/2016 4 - Hives 12 - Shortness of Breath SULFA (SULFONAMIDE ANTIBIOTICS) 09/10/2016 16 - Unknown Date Reviewed: 04/06/2025 Reviewed by: Di Delacruz RN - Fully Assessed Reason for Visit: Appointment [186] Cmt: xray remind for 04-11-25 Prescriptions as of 04/10/2025 - valACYclovir (VALTREX) 1 gram tablet Take 1 tablet by mouth three times a day for 7 days. Patient should start on April 07, 2025. - desonide (DESOWEN) 0.05 % ointment Apply to affected area two times a day for 5 days. - dulaglutide (TRULICITY) 1.5 mg/0.5 mL pen injector Inject 1.5 mg subcutaneously one time a week. - tamsulosin (FLOMAX) 0.4 mg TAKE 1 CAPSULE BY MOUTH EVERYDAY AT BEDTIME - rOPINIRole (REQUIP) 0.5 mg tablet TAKE 0.5 TABLETS BY MOUTH DAILY AT BEDTIME FOR 2 DAYS, THEN 1 TABLET DAILY AT BEDTIME FOR 5 DAYS, THEN 2 TABLETS DAILY AT BEDTIME. - fluticasone (FLONASE) 50 mcg/actuation nasal spray SPRAY 1 SPRAY INTO EACH NOSTRIL AT BEDTIME - topiramate (TOPAMAX) 50 mg tablet Take 3 tablets by mouth once daily. - gabapentin (NEURONTIN) 300 mg capsule Take 4 capsules by mouth as directed for 30 days. - methocarbamol (ROBAXIN) 750 mg tablet Take 1 tablet by mouth three times a day. - busPIRone (BUSPAR) 10 mg tablet Take 10 mg by mouth three times a day. - celecoxib (CELEBREX) 100 mg capsule Take 100 mg by mouth two times a day. - albuterol HFA (PROAIR HFA) 90 mcg/actuation inhaler Inhale 2 puffs as instructed every 4 hours as needed. - montelukast (SINGULAIR) 10 mg tablet TAKE 1 TABLET BY MOUTH EVERYDAY AT BEDTIME - hydrOXYzine HCl (ATARAX) 50 mg tablet TAKE 1 TABLET BY MOUTH THREE TIMES A DAY NEEDED FOR ANXIETY - FLUoxetine (PROZAC) 40 mg capsule TAKE 1 CAPSULE BY MOUTH EVERY DAY - traZODone (DESYREL) 100 mg tablet TAKE 2 TABLETS BY MOUTH AT BEDTIME - SUMAtriptan (IMITREX) 50 mg tablet Take 1 tablet (50 mg) by mouth as needed for migraine headache (see administration instructions). May repeat dose after 2 hours if needed. Maximum daily dose is 200 mg per day. - cholecalciferol, Vitamin D3, (VITAMIN D3) 1,250 mcg (50,000 unit) cap capsule Take 1 capsule by mouth one time a week for 10 doses. - sildenafil (VIAGRA) 100 mg tablet Take 1 tablet by mouth once daily as needed. Take 30-60 minutes before sexual activity. - valACYclovir (VALTREX) 500 mg tablet Take 1 tablet by mouth once daily. Facility-Administered Medications as of 04/10/2025 - cyanocobalamin 1,000 mcg injection Problem List As Of Date 04/10/2025 Noted Resolved Acute medial meniscus tear of right knee [S83.2*08/19/2015 09/04/2015 Primary osteoarthritis of right knee [M17.11] 09/04/2015 Pain in right knee [M25.561] 09/04/2015 Contact dermatitis [L25.9] 09/07/2016 Mass on back [R22.2] 11/27/2016 Aftercare following surgery [Z48.89] 01/19/2017 06/07/2020 Restless leg syndrome [G25.81] 04/01/2017 Migraine with aura and without status migrainos*04/01/2017 Mild intermittent asthma without complication [*04/01/2017 07/22/2021 Eczema [L30.9] 04/01/2017 Obesity, Class III, BMI >= 40 E66.01 [E66.813] 01/20/2018 Posterior tibial tendinitis of left leg [M76.82*02/01/2018 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) [E66.01] Diverticulosis [K57.90] 03/22/2019 Chronic nonintractable headache [R51.9, G89.29] 05/09/2019 Closed fracture of bone of right foot [S92.901A]05/09/2019 Intractable migraine without aura and without s*06/05/2019 Exotropia of right eye [H50.111] 07/07/2019 07/07/2019 Wheezing [R06.2] 03/13/2020 07/22/2021 Seasonal allergic rhinitis due to pollen [J30.1]03/13/2020 History of shingles [Z86.19] 03/13/2020 Bronchitis, mucopurulent recurrent (HCC) [J41.1]03/13/2020 S/P left knee surgery [Z98.890] 04/30/2020 LIS (obstructive sleep apnea) [G47.33] 06/28/2020 Allergic rhinitis due to animal hair and dander*07/16/2020 Allergic rhinitis [J30.9] 07/16/2020 Allergic rhinitis due to mold [J30.89] 10/29/2020 Mild persistent asthma [J45.30] 10/29/2020 07/22/2021 Chronic pain of left knee [M25.562, G89.29] 01/13/2021 04/09/2021 Allergic rhinitis due to dust mite [J30.89] 03/26/2021 Dyspnea and respiratory abnormalities (more content not included)... Normal [facility] CNPTOUTREACHon 04-09-2025 CNPTOUTREACH Normal [facility] ED PROV NOTEon 04-06-2025 ED PROV NOTE Normal [facility] CNOVon 03-22-2025 CNOV Normal [facility] CNOVon 03-21-2025 CNOV Office Visit ([facility] ) SAM RAI ([id number]) 1975 M T Date Time Provider Department 03/21/25 9:30 AM YOON ZHANG [facility] During your visit today, we recorded the following information about you: Pulse Weight Height 72/minute 116.6 kg 1.702 m Yoon Zhang APRN.CNP 03/23/2025 4:27 PM Signed SERVICE DATE: March 21, 2025 PCP: Remi Ruth APRN.CNP Subjective Patient ID: Sam is a 49 year old year old male seen today with right hand pain. It started after he was performing yard work. He reports that he tripped and fell while he was holding a piece of equipment and twisted his finger. He experienced immediate pain so was evaluated n ED on 03/07 where he was found to have a non-displaced fracture through the base of the middle phalanx of pinky finger. HE was placed in a long finger soft splint. Today reports that he continues to have some pain and swelling, but that it is slowly settling down. PAIN EVALUATION No data found in the last 1 encounters. HPI Review of Systems ACTIVE PROBLEM LIST Primary Osteoarthritis of Right Knee Pain in Right Knee Contact Dermatitis Mass On Back Restless Leg Syndrome Migraine With Aura and Without Status Migrainosus, Not Intractable Eczema Obesity, Class III, BMI >= 40 E66.01 Posterior Tibial Tendinitis of Left Leg Sinus Tarsi Syndrome of Left Ankle Obesity, Morbid, Bmi 40.0-49.9 (Hcc) Diverticulosis Chronic Nonintractable Headache Closed Fracture of Bone of Right Foot Intractable Migraine Without Aura and Without Status Migrainosus Seasonal Allergic Rhinitis Due to Pollen History of Shingles Bronchitis, Mucopurulent Recurrent (Hcc) S/P Left Knee Surgery Lis (Obstructive Sleep Apnea) 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 Hair and Dander Allergic Rhinitis Allergic Rhinitis Due to Mold Allergic Rhinitis Due to Dust Mite Dyspnea and Respiratory Abnormalities Pleuritic Chest Pain Moderate Asthma (Hcc) Anxiety and Depression Corneal Subepithelial Haze of Left Eye Refractive Error History of Strabismus Surgery Vitreous Syneresis of Both Eyes Left Flank Pain Malodorous Urine Right Kidney Stone Sinus Infection Left Lower Quadrant Abdominal Pain Nausea and Vomiting Abdominal Pain Acute Left-Sided Low Back Pain Without Sciatica Obesity, Class II, Bmi 35-39.9 PAST MEDICAL HISTORY Diagnosis Date Acute medial meniscus tear of right knee Anxiety Asthma (HCC) Contact dermatitis Recurrence not specified. COVID-19 long hauler Depression Diverticulitis GERD (gastroesophageal reflux disease) Insufficiency fracture of tibia Migraines Obesity, morbid, BMI 40.0-49.9 (HCC) Primary osteoarthritis of right knee Restless legs syndrome (RLS) Sinus infection PAST SURGICAL HISTORY Procedure Laterality Date CARPAL TUNNEL Right CHOLECYSTECTOMY HX in 1999 KNEE SURGERY HX Right scope and tibial transfer ORTHOPEDICS SURGERY HX Right Right Knee PAST SURGICAL HISTORY OF teeth removed TONSILLECTOMY HX FAMILY HISTORY Problem Relation Age of Onset Stroke Mother Lipids Mother Hypertension Mother Obesity Mother Asthma Mother COPD Mother Lipids Father Hypertension Father Alcohol/Drug Father Restless legs syndrome No Family History Obstructive Sleep Apnea No Family History Social History Tobacco Use Smoking status: Never Smokeless tobacco: Never Vaping Use Vaping status: Never Used Substance Use Topics Alcohol use: Yes Comment: social Drug use: Never Comment: No reported history. ALLERGIES Allergen Reactions Bactrim [Sulfametho* Hives Erythromycin Base Hives, Shortness of Breath Sulfa (Sulfonamide * Unknown MEDICATIONS: rOPINIRole (REQUIP) 0.5 mg tabletTAKE 0.5 TABLETS BY MOUTH DAILY AT BEDTIME FOR 2 DAYS, THEN 1 TABLET DAILY AT BEDTIME FOR 5 DAYS, THEN 2 TABLETS DAILY AT BEDTIME.Disp: 198 tabletRfl: 1 dulaglutide (TRULICITY) 1.5 mg/0.5 mL pen injectorInject 1.5 mg subcutaneously one time a week.Disp: 2 mLRfl: 0 tamsulosin (FLOMAX) 0.4 mgTAKE 1 CAPSULE BY MOUTH EVERYDAY AT BEDTIMEDisp: 90 capsuleRfl: 1 fluticasone (FLONASE) 50 mcg/actuation nasal spraySPRAY 1 SPRAY INTO EACH NOSTRIL AT BEDTIMEDisp: 48 mLRfl: 1 topiramate (TOPAMAX) 50 mg tabletTake 3 tablets by mouth once daily.Disp: 270 tabletRfl: 1 gabapentin (NEURONTIN) 300 mg capsuleTake 4 capsules by mouth as directed for 30 days.Disp: 120 capsuleRfl: 0 methocarbamol (ROBAXIN) 750 mg tabletTake 1 tablet by mouth three times a day.Disp: 90 tabletRfl: 2 busPIRone (BUSPAR) 10 mg tabletTake 10 mg by mouth three times a day.Disp: Rfl: celecoxib (CELEBREX) 100 mg capsuleTake 100 mg by mouth two times a day.Disp: Rfl: albuterol HFA (PROAIR HFA) 90 mcg/actuation inhalerInhale 2 puffs as instructed every 4 hours as needed.Disp: 1 eachRfl: 3 montelukast (SINGULAIR) 10 mg tabletTAKE 1 TABLET BY MOUTH EVERYDA (more content not included)... [facility] 03-21-2025 [facility] XR HAND 3V PA/LAT/OBL RTon 0 03-21-2025 XR HAND 3V PA/LAT/OBL RT * * *Final Report* * * DATE OF EXAM: Mar 21 2025 9:47AM RHX [id number] - XR HAND 3V PA/LAT/OBL RT / PROCEDURE REASON: Closed fracture of phalanx of digit of hand, initial encounter * * * * Physician Interpretation * * * * EXAMINATION: XR HAND 3V PA/LAT/OBL RT CLINICAL HISTORY: Pain. Closed fracture of phalanx of digit of hand, initial encounter Technique: XR HAND 3V PA/LAT/OBL RT - 3 images Comparison: 03/07/2025 RESULT: Nondisplaced vertical fracture of the fifth middle phalanx base with increasing indistinctness of the fracture line compared to prior. Alignment is unchanged. Mild soft tissue swelling of the fifth digit IMPRESSION: Healing nondisplaced fifth middle phalanx base fracture. Mess Cook: SONIA Transcribe Date/Time: Mar 27 2025 3:32P Dictated by : JUJU BARNES DO This examination was interpreted and the report reviewed and electronically signed by: JUJU BARNES DO on Mar 27 2025 3:37PM EST [id number] [facility] 03-20-2025 [facility] Telephone ([facility]) SAM RAI ([id number]) 1975 M [facility] Date Time Provider Department 03/20/25 YOON ZHANG [facility] During your visit today, we recorded the following information about you: Madelaine Belle MA 03/20/2025 8:05 AM Signed Left reminding pt of appointment on 03/21/25 and to have xrays completed prior to the day of his appointment. Pt was given hours and locations to have this completed and was advised to call the office with any questions or concerns. Madelaine Belle MA March 20, 2025 8:04 AM Allergies As of Date: 03/20/2025 Noted Allergy Reaction BACTRIM (SULFAMETHOXAZOLE-TRIMETH*0 06/01/2015 4 - Hives ERYTHROMYCIN BASE 09/10/2016 4 - Hives 12 - Shortness of Breath SULFA (SULFONAMIDE ANTIBIOTICS) 09/10/2016 16 - Unknown Date Reviewed: 03/07/2025 Reviewed by: Irma Restrepo RN - Fully Assessed Reason for Visit: Appointment [186] Cmt: Appt/Xray Reminder for 03/21/25 Prescriptions as of 03/20/2025 - rOPINIRole (REQUIP) 0.5 mg tablet TAKE 0.5 TABLETS BY MOUTH DAILY AT BEDTIME FOR 2 DAYS, THEN 1 TABLET DAILY AT BEDTIME FOR 5 DAYS, THEN 2 TABLETS DAILY AT BEDTIME. - dulaglutide (TRULICITY) 1.5 mg/0.5 mL pen injector Inject 1.5 mg subcutaneously one time a week. - tamsulosin (FLOMAX) 0.4 mg TAKE 1 CAPSULE BY MOUTH EVERYDAY AT BEDTIME - fluticasone (FLONASE) 50 mcg/actuation nasal spray SPRAY 1 SPRAY INTO EACH NOSTRIL AT BEDTIME - topiramate (TOPAMAX) 50 mg tablet Take 3 tablets by mouth once daily. - gabapentin (NEURONTIN) 300 mg capsule Take 4 capsules by mouth as directed for 30 days. - methocarbamol (ROBAXIN) 750 mg tablet Take 1 tablet by mouth three times a day. - busPIRone (BUSPAR) 10 mg tablet Take 10 mg by mouth three times a day. - celecoxib (CELEBREX) 100 mg capsule Take 100 mg by mouth two times a day. - albuterol HFA (PROAIR HFA) 90 mcg/actuation inhaler Inhale 2 puffs as instructed every 4 hours as needed. - montelukast (SINGULAIR) 10 mg tablet TAKE 1 TABLET BY MOUTH EVERYDAY AT BEDTIME - hydrOXYzine HCl (ATARAX) 50 mg tablet TAKE 1 TABLET BY MOUTH THREE TIMES A DAY NEEDED FOR ANXIETY - FLUoxetine (PROZAC) 40 mg capsule TAKE 1 CAPSULE BY MOUTH EVERY DAY - traZODone (DESYREL) 100 mg tablet TAKE 2 TABLETS BY MOUTH AT BEDTIME - SUMAtriptan (IMITREX) 50 mg tablet Take 1 tablet (50 mg) by mouth as needed for migraine headache (see administration instructions). May repeat dose after 2 hours if needed. Maximum daily dose is 200 mg per day. - cholecalciferol, Vitamin D3, (VITAMIN D3) 1,250 mcg (50,000 unit) cap capsule Take 1 capsule by mouth one time a week for 10 doses. - sildenafil (VIAGRA) 100 mg tablet Take 1 tablet by mouth once daily as needed. Take 30-60 minutes before sexual activity. - valACYclovir (VALTREX) 500 mg tablet Take 1 tablet by mouth once daily. Facility-Administered Medications as of 03/20/2025 - cyanocobalamin 1,000 mcg injection Problem List As Of Date 03/20/2025 Noted Resolved Acute medial meniscus tear of right knee [S83.2*08/19/2015 09/04/2015 Primary osteoarthritis of right knee [M17.11] 09/04/2015 Pain in right knee [M25.561] 09/04/2015 Contact dermatitis [L25.9] 09/07/2016 Mass on back [R22.2] 11/27/2016 Aftercare following surgery [Z48.89] 01/19/2017 06/07/2020 Restless leg syndrome [G25.81] 04/01/2017 Migraine with aura and without status migrainos*04/01/2017 Mild intermittent asthma without complication [*04/01/2017 07/22/2021 Eczema [L30.9] 04/01/2017 Obesity, Class III, BMI >= 40 E66.01 [E66.813] 01/20/2018 Posterior tibial tendinitis of left leg [M76.82*02/01/2018 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) [E66.01] Diverticulosis [K57.90] 03/22/2019 Chronic nonintractable headache [R51.9, G89.29] 05/09/2019 Closed fracture of bone of right foot [S92.901A]05/09/2019 Intractable migraine without aura and without s*06/05/2019 Exotropia of right eye [H50.111] 07/07/2019 07/07/2019 Wheezing [R06.2] 03/13/2020 07/22/2021 Seasonal allergic rhinitis due to pollen [J30.1]03/13/2020 History of shingles [Z86.19] 03/13/2020 Bronchitis, mucopurulent recurrent (HCC) [J41.1]03/13/2020 S/P left knee surgery [Z98.890] 04/30/2020 LIS (obstructive sleep apnea) [G47.33] 06/28/2020 Allergic rhinitis due to animal hair and dander*07/16/2020 Allergic rhinitis [J30.9] 07/16/2020 Allergic rhinitis due to mold [J30.89] 10/29/2020 Mild persistent asthma [J45.30] 10/29/2020 07/22/2021 Chronic pain of left knee [M25.562, G89.29] 01/13/2021 04/09/2021 Allergic rhinitis due to dust mite [J30.89] 03/26/2021 Dyspnea and respiratory abnormalities [R06.00, *07/17/2021 Pleuritic chest pain [R07.81] 07/17/2021 Moderate asthma [J45.909] 07/17/2021 Anxiety and depression [F41.9, F32.A] 07/31/2021 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 [facility] 03-19-2025 [facility] Telephone ([facility]) SAM RAI ([id number]) 1975 M [facility] Date Time Provider Department 03/19/25 YOON ZHANG [facility] During your visit today, we recorded the following information about you: Precious Rogers MA 03/19/2025 3:55 PM Signed Left reminding pt of appointment on 03/21/25 and to have xrays completed prior to the day of his appointment. Pt was given hours and locations to have this completed and was advised to call the office with any questions or concerns. Precious Rogers MA March 19, 2025 3:54 PM Allergies As of Date: 03/19/2025 Noted Allergy Reaction BACTRIM (SULFAMETHOXAZOLE-TRIMETH*0 06/01/2015 4 - Hives ERYTHROMYCIN BASE 09/10/2016 4 - Hives 12 - Shortness of Breath SULFA (SULFONAMIDE ANTIBIOTICS) 09/10/2016 16 - Unknown Date Reviewed: 03/07/2025 Reviewed by: Irma Restrepo RN - Fully Assessed Reason for Visit: Appointment [186] Cmt: xray remind for 03-21-25. Prescriptions as of 03/19/2025 - rOPINIRole (REQUIP) 0.5 mg tablet TAKE 0.5 TABLETS BY MOUTH DAILY AT BEDTIME FOR 2 DAYS, THEN 1 TABLET DAILY AT BEDTIME FOR 5 DAYS, THEN 2 TABLETS DAILY AT BEDTIME. - dulaglutide (TRULICITY) 1.5 mg/0.5 mL pen injector Inject 1.5 mg subcutaneously one time a week. - tamsulosin (FLOMAX) 0.4 mg TAKE 1 CAPSULE BY MOUTH EVERYDAY AT BEDTIME - fluticasone (FLONASE) 50 mcg/actuation nasal spray SPRAY 1 SPRAY INTO EACH NOSTRIL AT BEDTIME - topiramate (TOPAMAX) 50 mg tablet Take 3 tablets by mouth once daily. - gabapentin (NEURONTIN) 300 mg capsule Take 4 capsules by mouth as directed for 30 days. - methocarbamol (ROBAXIN) 750 mg tablet Take 1 tablet by mouth three times a day. - busPIRone (BUSPAR) 10 mg tablet Take 10 mg by mouth three times a day. - celecoxib (CELEBREX) 100 mg capsule Take 100 mg by mouth two times a day. - albuterol HFA (PROAIR HFA) 90 mcg/actuation inhaler Inhale 2 puffs as instructed every 4 hours as needed. - montelukast (SINGULAIR) 10 mg tablet TAKE 1 TABLET BY MOUTH EVERYDAY AT BEDTIME - hydrOXYzine HCl (ATARAX) 50 mg tablet TAKE 1 TABLET BY MOUTH THREE TIMES A DAY NEEDED FOR ANXIETY - FLUoxetine (PROZAC) 40 mg capsule TAKE 1 CAPSULE BY MOUTH EVERY DAY - traZODone (DESYREL) 100 mg tablet TAKE 2 TABLETS BY MOUTH AT BEDTIME - SUMAtriptan (IMITREX) 50 mg tablet Take 1 tablet (50 mg) by mouth as needed for migraine headache (see administration instructions). May repeat dose after 2 hours if needed. Maximum daily dose is 200 mg per day. - cholecalciferol, Vitamin D3, (VITAMIN D3) 1,250 mcg (50,000 unit) cap capsule Take 1 capsule by mouth one time a week for 10 doses. - sildenafil (VIAGRA) 100 mg tablet Take 1 tablet by mouth once daily as needed. Take 30-60 minutes before sexual activity. - valACYclovir (VALTREX) 500 mg tablet Take 1 tablet by mouth once daily. Facility-Administered Medications as of 03/19/2025 - cyanocobalamin 1,000 mcg injection Problem List As Of Date 03/19/2025 Noted Resolved Acute medial meniscus tear of right knee [S83.2*08/19/2015 09/04/2015 Primary osteoarthritis of right knee [M17.11] 09/04/2015 Pain in right knee [M25.561] 09/04/2015 Contact dermatitis [L25.9] 09/07/2016 Mass on back [R22.2] 11/27/2016 Aftercare following surgery [Z48.89] 01/19/2017 06/07/2020 Restless leg syndrome [G25.81] 04/01/2017 Migraine with aura and without status migrainos*04/01/2017 Mild intermittent asthma without complication [*04/01/2017 07/22/2021 Eczema [L30.9] 04/01/2017 Obesity, Class III, BMI >= 40 E66.01 [E66.813] 01/20/2018 Posterior tibial tendinitis of left leg [M76.82*02/01/2018 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) [E66.01] Diverticulosis [K57.90] 03/22/2019 Chronic nonintractable headache [R51.9, G89.29] 05/09/2019 Closed fracture of bone of right foot [S92.901A]05/09/2019 Intractable migraine without aura and without s*06/05/2019 Exotropia of right eye [H50.111] 07/07/2019 07/07/2019 Wheezing [R06.2] 03/13/2020 07/22/2021 Seasonal allergic rhinitis due to pollen [J30.1]03/13/2020 History of shingles [Z86.19] 03/13/2020 Bronchitis, mucopurulent recurrent (HCC) [J41.1]03/13/2020 S/P left knee surgery [Z98.890] 04/30/2020 LIS (obstructive sleep apnea) [G47.33] 06/28/2020 Allergic rhinitis due to animal hair and dander*07/16/2020 Allergic rhinitis [J30.9] 07/16/2020 Allergic rhinitis due to mold [J30.89] 10/29/2020 Mild persistent asthma [J45.30] 10/29/2020 07/22/2021 Chronic pain of left knee [M25.562, G89.29] 01/13/2021 04/09/2021 Allergic rhinitis due to dust mite [J30.89] 03/26/2021 Dyspnea and respiratory abnormalities [R06.00, *07/17/2021 Pleuritic chest pain [R07.81] 07/17/2021 Moderate asthma [J45.909] 07/17/2021 Anxiety and depression [F41.9, F32.A] 07/31/2021 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 Normal [facility] CNPTOUTREACHon 03-08-2025 CNPTOUTREACH Normal [facility] ALLIED HEALTHon 03-07-2025 ALLIED HEALTH Normal [facility] ED NOTEon 03-07-2025 ED NOTE HNO ID: [id number] Author: SHILPA JOHNSON Tech Service: Emergency Medicine Author Type: Workforce Management Analyst Type: ED Notes Filed: 03/07/2025 13:14 Note Text: Metal finger splint applied to right fifth digit Normal [facility] ED NOTE Normal [facility] ED PROV NOTEon 03-07-2025 ED PROV NOTE Normal [facility] XR HAND 3V PA/LAT/OBL RTon 0 03-07-2025 XR HAND 3V PA/LAT/OBL RT Normal [facility] CNPNon 03-02-2025 CNPN Normal [facility] CNPTOUTREACHon 02-15-2025 CNPTOUTREACH Normal [facility] CBC W Auto Differential pane l (Bld)on 02-14-2025 Basophils (Bld) [#/Vol] 10*3/uL Normal <0.11 [facility] Comment on above: Order Comment: Speci men Type: BLOOD SPECIMENOrdering Facility: [facility] Address: [address] [place] [address] Performed By: #### 5 7021-8 ####[facility] LABORATORYCLIA [id number] [place] [address] [place] Basophils/100 WBC (Bld) 0.3 % Normal [facility] Comment on above: Order Comment: Speci men Type: BLOOD SPECIMENOrdering Facility: [facility] Address: [address] [place] [address] Performed By: #### 5 7021-8 ####[facility]ORATORYCLIA [id number] [place] [address] [place] Differential cell count method Nom (Bld) Auto Normal [facility] Comment on above: Order Comment: Speci men Type: BLOOD SPECIMENOrdering Facility: [facility] Address: [address] [place] [address] Performed By: #### 5 7021-8 ####[facility] LABORATORYCLIA [id number] [place] [address] [place] Eosinophils (Bld) [#/Vol] 0.06 10*3/uL Normal <0.46 [facility] Comment on above: Order Comment: Speci men Type: BLOOD SPECIMENOrdering Facility: [facility] Address: [address] [place] [address] Performed By: #### 5 7021-8 ####[facility] LABORATORYCLIA [id number] [address] [place] Eosinophils/100 WBC (Bld) 1.0 % Normal [facility] Comment on above: Order Comment: Speci men Type: BLOOD SPECIMENOrdering Facility: [facility] Address: [address] [place] [address] Performed By: #### 5 7021-8 ####[facility] LABORATORYCLIA [id number] [address] [place] Erythrocyte distribution width (RBC) [Ratio] 13.1 % Normal 11.5-15.0 [facility] Comment on above: Order Comment: Speci men Type: BLOOD SPECIMENOrdering Facility: [facility] Address: [address] [place] [address] Performed By: #### 5 7021-8 ####[facility] LABORATORYCLIA [id number] [address] [place] Hematocrit (Bld) [Volume fraction] 42.5 % Normal 39.0-51.0 [facility] Comment on above: Order Comment: Speci men Type: BLOOD SPECIMENOrdering Facility: [facility] Address: [address] [place] [address] Performed By: #### 5 7021-8 ####[facility] LABORATORYCLIA [id number] [address] [place] Hemoglobin (Bld) [Mass/Vol] 14.0 g/dL Normal 13.0-17.0 [facility] Comment on above: Order Comment: Speci men Type: BLOOD SPECIMENOrdering Facility: [facility] Address: [address] [place] [address] Performed By: #### 5 7021-8 ####[facility] LABORATORYCLIA [id number] [address] [place] Immature granulocytes (Bld) [#/Vol] 0.05 10*3/uL Normal <0.10 [facility] Comment on above: Order Comment: Speci men Type: BLOOD SPECIMENOrdering Facility: [facility] Address: [address] [place] [address] Performed By: #### 5 7021-8 ####[facility] LABORATORYCLIA [id number] [address] Immature granulocytes/100 WBC (Bld) 0.8 % Normal [facility] Comment on above: Order Comment: Speci men Type: BLOOD SPECIMENOrdering Facility: [facility] Address: [address] [place] [address] Performed By: #### 5 7021-8 ####[facility] LABORATORYCLIA [id number] [address] [place] Lymphocytes (Bld) [#/Vol] 1.49 10*3/uL Normal 1.00-4.00 [facility] Comment on above: Order Comment: Speci men Type: BLOOD SPECIMENOrdering Facility: [facility] Address: [address] [place] [address] Performed By: #### 5 7021-8 ####[facility] LABORATORYCLIA [id number] [address] Lymphocytes/100 WBC (Bld) 24.0 % Normal [facility] Comment on above: Order Comment: Speci men Type: BLOOD SPECIMENOrdering Facility: [facility] Address: [address] [place] [address] Performed By: #### 5 7021-8 ####[facility] LABORATORYCLIA [id number] [address] [place] MCH (RBC) [Entitic mass] 29.4 pg Normal 26.0-34.0 [facility] Comment on above: Order Comment: Speci men Type: BLOOD SPECIMENOrdering Facility: [facility] Address: [address] [place] [address] Performed By: #### 5 7021-8 ####[facility] LABORATORYCLIA [id number] [address] [place] MCHC (RBC) [Mass/Vol] 32.9 g/dL Normal 30.5-36.0 [facility] Comment on above: Order Comment: Speci men Type: BLOOD SPECIMENOrdering Facility: [facility] Address: [address] [place] [address] Performed By: #### 5 7021-8 ####[facility]ORATORYCLIA [id number] [address] [place] MCV (RBC) [Entitic vol] 89.1 fL Normal 80.0-100.0 [facility] Comment on above: Order Comment: Speci men Type: BLOOD SPECIMENOrdering Facility: [facility] Address: [address] [place] [address] Performed By: #### 5 7021-8 ####[facility] LABORATORYCLIA [id number] [place] [address] [place] Monocytes (Bld) [#/Vol] 0.70 10*3/uL Normal <0.87 [facility] Comment on above: Order Comment: Speci men Type: BLOOD SPECIMENOrdering Facility: [facility] Address: [address] [place] [address] Performed By: #### 5 7021-8 ####[facility] LABORATORYCLIA [id number] [address] [place] Monocytes/100 WBC (Bld) 11.3 % Normal [facility] Comment on above: Order Comment: Speci men Type: BLOOD SPECIMENOrdering Facility: [facility] Address: [address] [place] [address] Performed By: #### 5 7021-8 ####[facility]ORATORYCLIA [id number] [place] [address] [place] Neutrophils (Bld) [#/Vol] 3.88 10*3/uL Normal 1.45-7.50 [facility] Comment on above: Order Comment: Speci men Type: BLOOD SPECIMENOrdering Facility: [facility] Address: [address] [place] [address] Performed By: #### 5 7021-8 ####[facility]ORATORYCLIA [id number] [address] [place] Neutrophils/100 WBC (Bld) 62.6 % Normal [facility] Comment on above: Order Comment: Speci men Type: BLOOD SPECIMENOrdering Facility: [facility] Address: [address] [place] [address] Performed By: #### 5 7021-8 ####[facility]ORATORYCLIA [id number] [address] [place] Nucleated RBC (Bld) [#/Vol] 10*3/uL Normal <0.01 [facility] Comment on above: Order Comment: Speci men Type: BLOOD SPECIMENOrdering Facility: [facility] Address: [address] [place] [address] Performed By: #### 5 7021-8 ####[facility]ORATORYCLIA [id number] [address] [place] Nucleated RBC/100 WBC (Bld) [Ratio] 0.0 /100 WBC Normal [facility] Comment on above: Order Comment: Speci men Type: BLOOD SPECIMENOrdering Facility: [facility] Address: [address] [place] [address] Performed By: #### 5 7021-8 ####[facility] LABORATORYCLIA [id number] [address] [place] Platelet mean volume (Bld) [Entitic vol] 9.0 fL Normal 9.0-12.7 [facility] Comment on above: Order Comment: Speci men Type: BLOOD SPECIMENOrdering Facility: [facility] Address: [address] [place] [address] Performed By: #### 5 7021-8 ####[facility]ORATORYCLIA [id number] [place] [address] [place] Platelets (Bld) [#/Vol] 274 10*3/uL Normal 150-400 [facility] Comment on above: Order Comment: Speci men Type: BLOOD SPECIMENOrdering Facility: [facility] Address: [address] [place] [address] Performed By: #### 5 7021-8 ####[facility]ORATORYCLIA [id number] [address] [facility] RBC (Bld) [#/Vol] 4.77 10*6/uL Normal 4.20-6.00 [facility] Comment on above: Order Comment: Speci men Type: BLOOD SPECIMENOrdering Facility: [facility] Address: [address] [place] [address] Performed By: #### 5 7021-8 ####[facility]ORATORYCLIA [id number] [address] [facility] WBC (Bld) [#/Vol] 6.20 10*3/uL Normal 3.70-11.00 [facility] Comment on above: Order Comment: Speci men Type: BLOOD SPECIMENOrdering Facility: [facility] Address: [address] [place] [address] Performed By: #### 5 7021-8 ####[facility]ORATORYCLIA [id number] [address] Comprehensive metabolic 2000 panelon 02-14-2025 Albumin [Mass/Vol] 3.9 g/dL Normal 3.9-4.9 [facility] Comment on above: Order Comment: Speci men Type: BLOOD SPECIMENOrdering Facility: [facility] Address: [address] [place] [address] Performed By: #### 2 4323-8 ####[facility]ORATORYCLIA [id number] [address] [place] ALP [Catalytic activity/Vol] 81 U/L Normal 38-113 [facility] Comment on above: Order Comment: Speci men Type: BLOOD SPECIMENOrdering Facility: [facility] Address: [address] [place] [address] Performed By: #### 2 4323-8 ####[facility]ORATORYCLIA [id number] [address] ALT With P-5'-P [Catalytic activity/Vol] 22 U/L Normal 10-54 [facility] Comment on above: Order Comment: Speci men Type: BLOOD SPECIMENOrdering Facility: [facility] Address: [address] [place] [address] Performed By: #### 2 4323-8 ####[facility] LABORATORYCLIA [id number] [place] [address] [place] Anion gap [Moles/Vol] 9 mmol/L Normal 8-15 [facility] Comment on above: Order Comment: Speci men Type: BLOOD SPECIMENOrdering Facility: [facility] Address: [address] [place] [address] Performed By: #### 2 4323-8 ####[facility] LABORATORYCLIA [id number] [place] [address] [place] AST With P-5'-P [Catalytic activity/Vol] 16 U/L Normal 14-40 [facility] Comment on above: Order Comment: Speci men Type: BLOOD SPECIMENOrdering Facility: [facility] Address: [address] [place] [address] Performed By: #### 2 4323-8 ####[facility]ORATORYCLIA [id number] [place] [address] [place] Bilirubin [Mass/Vol] 0.3 mg/dL Normal 0.2-1.3 [facility] Comment on above: Order Comment: Speci men Type: BLOOD SPECIMENOrdering Facility: [facility] Address: [address] [place] [address] Performed By: #### 2 4323-8 ####[facility]ORATORYCLIA [id number] [place] [address] [place] Calcium [Mass/Vol] 8.9 mg/dL Normal 8.5-10.2 [facility] Comment on above: Order Comment: Speci men Type: BLOOD SPECIMENOrdering Facility: [facility] Address: [address] [place] [address] Performed By: #### 2 4323-8 ####[facility]ATORYCLIA [id number] [place] [address] [place] Chloride [Moles/Vol] 102 mmol/L Normal 98-107 [facility] Comment on above: Order Comment: Speci men Type: BLOOD SPECIMENOrdering Facility: [facility] Address: [address] [place] [address] Performed By: #### 2 4323-8 ####[facility]ORATORYCLIA [id number] [place] [address] [place] CO2 [Moles/Vol] 27 mmol/L Normal 22-30 [facility] Comment on above: Order Comment: Speci men Type: BLOOD SPECIMENOrdering Facility: [facility] Address: [address] [place] [address] Performed By: #### 2 4323-8 ####[facility]ITALCLIA [id number] [address] [place] Creatinine [Mass/Vol] 1.11 mg/dL Normal 0.73-1.22 [facility] Comment on above: Order Comment: Speci men Type: BLOOD SPECIMENOrdering Facility: [facility] Address: [address] [place] [address] Performed By: #### 2 4323-8 ####[facility]ORATORYCLIA [id number] [address] Creatinine and Glomerular filtration rate.predicted panel (S/P/Bld) 82 mL/min/1.73m??? Normal >=60 [facility] Comment on above: Order Comment: Speci men Type: BLOOD SPECIMENOrdering Facility: [facility] Address: [address] [place] [address] Result Comment: Guerita mated Glomerular Filtration Rate (eGFR) is calculated using the 2020 CKD-EPI creatinine equation. This equation utilizes serum creatinine, sex, and age as parameters. The creatinine assay has traceable calibration to isotope dilution-mass spectrometry. Refer to KDIGO guidelines for clinical interpretation. In patients with unstable renal function, e.g. those with acute kidney injury, the eGFR may not accurately reflect actual GFR. Performed By: #### 2 4323-8 ####[facility]ORATORYCLIA [id number] [place] [address] [place] Glucose [Mass/Vol] 117 mg/dL High 74-99 [facility] Comment on above: Order Comment: Speci men Type: BLOOD SPECIMENOrdering Facility: [facility] Address: [address] [place] [address] Result Comment: The [place] [employer] (ADA) provides guidance for cutoff values for fasting glucose and random glucose. The ADA defines fasting as no caloric intake for at least 8 hours. Fasting plasma glucose results between 100 to 125 mg/dL indicate increased risk for diabetes (prediabetes).Fasting plasma glucose results greater than or equal to 126 mg/dL meet the criteria for diagnosis of diabetes. In the absence of unequivocal hyperglycemia, results should be confirmed by repeat testing. In a patient with classic symptoms of hyperglycemia or hyperglycemic crisis, random plasma glucose results greater than or equal to 200 mg/dL meet the criteria for diagnosis of diabetes.Reference: Standards of Medical Care in Diabetes 2016, [place] [employer]. Diabetes Care. 2016.39(Suppl 1). Performed By: #### 2 4323-8 ####[facility] LABORATORYCLIA [id number] [place] [address] [place] Potassium [Moles/Vol] 4.6 mmol/L Normal 3.7-5.1 [facility] Comment on above: Order Comment: Lennox jeremy Type: BLOOD SPECIMENOrdering Facility: [facility] Address: [address] [place] [address] Performed By: #### 2 4323-8 ####[facility] LABORATORYCLIA [id number] [place] [address] [place] Protein [Mass/Vol] 6.9 g/dL Normal 6.3-8.0 [facility] Comment on above: Order Comment: Speci men Type: BLOOD SPECIMENOrdering Facility: [facility] Address: [address] [place] [address] Performed By: #### 2 4323-8 ####[facility]ORATORYCLIA [id number] [place] [address] [place] Sodium [Moles/Vol] 138 mmol/L Normal 136-144 [facility] Comment on above: Order Comment: Speci men Type: BLOOD SPECIMENOrdering Facility: [facility] Address: [address] [place] [address] Performed By: #### 2 4323-8 ####[facility]ORATORYCLIA [id number] [address] [place] Urea nitrogen [Mass/Vol] 15 mg/dL Normal 9-24 [facility] Comment on above: Order Comment: Speci men Type: BLOOD SPECIMENOrdering Facility: [facility] Address: [address] [place] [address] Performed By: #### 2 4323-8 ####[facility] LABORATORYCLIA [id number] [place] [id number] [facility] ED NOTEon 02-14-2025 ED NOTE HNO ID: [id number] Author: LULY CRABTREE, RN Service: Emergency Medicine Author Type: Registered Nurse Type: ED Notes Filed: 02/14/2025 12:00 Note Text: Pt given urine strainers and a urinal to take home. Normal [facility] ED NOTE HNO ID: [id number] Author: STELLA BOWERS, MARCIA Service: ? Author Type: Registered Nurse Type: ED Notes Filed: 02/14/2025 09:59 Note Text: Bed: 15-ED Expected date: Expected time: Means of arrival: Comments: triage Normal [facility] ED PROV NOTEon 02-14-2025 ED PROV NOTE Normal [facility] ED PROV NOTE Normal [facility] Urinalysis complete panel (U )on 02-14-2025 Bilirubin Ql (U) Negative Normal Negative [facility] Comment on above: Order Comment: Speci men Type: URINE SPECIMENOrdering Facility: [facility] Address: [address] [place] [address] Performed By: #### 2 4356-8 ####[facility]ORATORYCLIA [id number] [address] [place] Clarity (Unsp spec) Clear Normal Clear [facility] Comment on above: Order Comment: Speci men Type: URINE SPECIMENOrdering Facility: [facility] Address: [address] [place] [address] Performed By: #### 2 4356-8 ####[facility]ORATORYCLIA [id number] [address] STATES OF [facility] Color (U) Yellow Normal yellow [facility] Comment on above: Order Comment: Speci men Type: URINE SPECIMENOrdering Facility: [facility] Address: [address] [place] [address] Performed By: #### 2 4356-8 ####[facility]ORATORYCLIA [id number] [address] [place] Glucose Test strip (U) [Mass/Vol] Negative Normal Trace, Negative [facility] Comment on above: Order Comment: Speci men Type: URINE SPECIMENOrdering Facility: [facility] Address: [address] [place] [address] Performed By: #### 2 4356-8 ####[facility]ORATORYCLIA [id number] [address] [place] Hemoglobin Ql (U) 3+ Abnormal Negative, Trace [facility] Comment on above: Order Comment: Speci men Type: URINE SPECIMENOrdering Facility: [facility] Address: [address] [place] [address] Performed By: #### 2 4356-8 ####[facility]ORATORYCLIA [id number] [address] Ketones Ql (U) Trace Normal Negative, Trace [facility] Comment on above: Order Comment: Speci men Type: URINE SPECIMENOrdering Facility: [facility] Address: [address] [place] [address] Performed By: #### 2 4356-8 ####[facility]ORATORYCLIA [id number] [address] [facility] Leukocyte esterase Test strip Ql (U) Negative Normal Negative, 25 Douglas/uL [facility] Comment on above: Order Comment: Speci men Type: URINE SPECIMENOrdering Facility: [facility] Address: [facility] [place] [address] Performed By: #### 2 4356-8 ####[facility]ORATORYCLIA [id number] [address] [place] Nitrite Ql (U) Negative Normal Negative [facility] Comment on above: Order Comment: Speci men Type: URINE SPECIMENOrdering Facility: [facility] Address: [address] [place] [address] Performed By: #### 2 4356-8 ####[facility]ORATORYCLIA [id number] [address] [place] pH (U) 5.5 [pH] Normal 5.0-8.0 [facility] Comment on above: Order Comment: Speci men Type: URINE SPECIMENOrdering Facility: [facility] Address: [address] [place] [address] Performed By: #### 2 4356-8 ####[facility]PITALCLIA [id number] [address] STATES [facility] Protein (U) [Mass/Vol] Trace Normal Trace, Negative [facility] Comment on above: Order Comment: Speci men Type: URINE SPECIMENOrdering Facility: [facility] Address: [address] [place] [address] Performed By: #### 2 4356-8 ####[facility]ORATORYCLIA [id number] [address] RBC LM.HPF (Urine sed) [#/Area] /[HPF] Abnormal 0-3 /HPF [facility] Comment on above: Order Comment: Speci men Type: URINE SPECIMENOrdering Facility: [facility] Address: [address] [place] [address] Performed By: #### 2 4356-8 ####[facility]ORATORYCLIA [id number] [address] Specific gravity (U) [Rel density] 1.022 Normal 1.005-1.030 [facility] Comment on above: Order Comment: Speci men Type: URINE SPECIMENOrdering Facility: [facility] Address: [address] [place] [address] Performed By: #### 2 4356-8 ####[facility]ORATORYCLIA [id number] [address] [place] Urobilinogen Ql (U) Normal Normal Normal [facility] Comment on above: Order Comment: Speci men Type: URINE SPECIMENOrdering Facility: [facility] Address: [address] [place] [address] Performed By: #### 2 4356-8 ####[facility]ORATORYCLIA [id number] [address] STATES [facility] WBC LM.HPF (Urine sed) [#/Area] 0-5 /HPF Normal 0-5 /HPF [facility] Comment on above: Order Comment: Speci men Type: URINE SPECIMENOrdering Facility: [facility] Address: [address] [place] [address] Performed By: #### 2 4356-8 ####[facility]ORATORYCLIA [id number] [place] [id number] [place] Basic metabolic 2000 panelon 02-12-2025 Anion gap [Moles/Vol] 11 mmol/L 8 - 15 mmol/L [facility] Calcium [Mass/Vol] 9.1 mg/dL 8.5 - 10. 2 mg/dL [facility] Chloride [Moles/Vol] 100 mmol/L 98 - 107 mmol/L [facility] CO2 [Moles/Vol] 27 mmol/L 22 - 30 mmol/L [facility] Creatinine [Mass/Vol] 0.97 mg/dL 0.73 - 1.22 mg/dL [facility] GFR/1.73 sq M.predicted among non-blacks MDRD (S/P/Bld) [Vol rate/Area] 96 mL/min/{1.73_m2} - PINF [facility] Comment on above: Estimated Glomerular Filtration Rate (eGFR) is calculated using the 2020 CKD-EPI creatinine equation. This equation utilizes serum creatinine, sex, and age as parameters. The creatinine assay has traceable calibration to isotope dilution-mass spectrometry. Refer to KDIGO guidelines for clinical interpretation. In patients with unstable renal function, e.g. those with acute kidney injury, the eGFR may not accurately reflect actual GFR. Glucose [Mass/Vol] 98 mg/dL 74 - 99 mg/dL [facility] Comment on above: The [place] Di[employer] Association (ADA) provides guidance for cutoff values for fasting glucose and random glucose. The ADA defines fasting as no caloric intake for at least 8 hours. Fasting plasma glucose results between 100 to 125 mg/dL indicate increased risk for diabetes (prediabetes). Fasting plasma glucose results greater than or equal to 126 mg/dL meet the criteria for diagnosis of diabetes. In the absence of unequivocal hyperglycemia, results should be confirmed by repeat testing. In a patient with classic symptoms of hyperglycemia or hyperglycemic crisis, random plasma glucose results greater than or equal to 200 mg/dL meet the criteria for diagnosis of diabetes. Reference: Standards of Medical Care in Diabetes 2016, [place] [employer]. Diabetes Care. 2016.39(Suppl 1). Interpretation and review of laboratory results Normal [facility] Potassium [Moles/Vol] 4.5 mmol/L 3.7 - 5.1 mmol/L [facility] Sodium [Moles/Vol] 138 mmol/L 136 - 144 mmol/L [facility] Urea nitrogen [Mass/Vol] 16 mg/dL 9 - 24 mg/dL [facility] Anion gap [Moles/Vol] 11 mmol/L Normal 8-15 [facility] Comment on above: Order Comment: Speci men Type: BLOOD SPECIMENOrdering Facility: [facility] Address: [address] [place] [address] Performed By: #### 2 4321-2 ####[facility] LABORATORYCLIA [id number] [place] [address] [place] Calcium [Mass/Vol] 9.1 mg/dL Normal 8.5-10.2 [facility] Comment on above: Order Comment: Speci men Type: BLOOD SPECIMENOrdering Facility: [facility] Address: [address] [place] [id number] Performed By: #### 2 4321-2 ####[facility] LABORATORYCLIA [id number] [place] [address] [place] Chloride [Moles/Vol] 100 mmol/L Normal 98-107 [facility] Comment on above: Order Comment: Speci men Type: BLOOD SPECIMENOrdering Facility: [facility] Address: [address] [place] [id number] Performed By: #### 2 4321-2 ####[place] [facility] LABORATORYCLIA [id number] [place] [id number] [place] CO2 [Moles/Vol] 27 mmol/L Normal 22-30 [facility] Comment on above: Order Comment: Speci men Type: BLOOD SPECIMENOrdering Facility: [facility] Address: [address] [place] [address] Performed By: #### 2 4321-2 ####[place] LABORATORYCLIA [id number] [address] [place] Creatinine [Mass/Vol] 0.97 mg/dL Normal 0.73-1.22 [facility] Comment on above: Order Comment: Speci men Type: BLOOD SPECIMENOrdering Facility: [facility] Address: [address] [place] [address] Performed By: #### 2 4321-2 ####[facility]ITAL[facility] [id number] [address] Creatinine and Glomerular filtration rate.predicted panel (S/P/Bld) 96 mL/min/1.73m??? Normal >=60 [facility] Comment on above: Order Comment: Speci men Type: BLOOD SPECIMENOrdering Facility: [facility] Address: [address] [place] [address] Result Comment: Guerita mated Glomerular Filtration Rate (eGFR) is calculated using the 2020 CKD-EPI creatinine equation. This equation utilizes serum creatinine, sex, and age as parameters. The creatinine assay has traceable calibration to isotope dilution-mass spectrometry. Refer to KDIGO guidelines for clinical interpretation. In patients with unstable renal function, e.g. those with acute kidney injury, the eGFR may not accurately reflect actual GFR. Performed By: #### 2 4321-2 ####[facility] LABORATORYCLIA [id number] [address] OF [facility] Glucose [Mass/Vol] 98 mg/dL Normal 74-99 [facility] Comment on above: Order Comment: Speci men Type: BLOOD SPECIMENOrdering Facility: [facility] Address: [address] [place] [address] Result Comment: The [place] Diabetes Association (ADA) provides guidance for cutoff values for fasting glucose and random glucose. The ADA defines fasting as no caloric intake for at least 8 hours. Fasting plasma glucose results between 100 to 125 mg/dL indicate increased risk for diabetes (prediabetes).Fasting plasma glucose results greater than or equal to 126 mg/dL meet the criteria for diagnosis of diabetes. In the absence of unequivocal hyperglycemia, results should be confirmed by repeat testing. In a patient with classic symptoms of hyperglycemia or hyperglycemic crisis, random plasma glucose results greater than or equal to 200 mg/dL meet the criteria for diagnosis of diabetes.Reference: Standards of Medical Care in Diabetes 2016, [place] [employer]. Diabetes Care. 2016.39(Suppl 1). Performed By: #### 2 4321-2 ####[facility] LABORATORYCLIA [id number] [place] [address] [place] Potassium [Moles/Vol] 4.5 mmol/L Normal 3.7-5.1 [facility] Comment on above: Order Comment: Speci men Type: BLOOD SPECIMENOrdering Facility: [facility] Address: [address] [place] [address] Performed By: #### 2 4321-2 ####[facility] LABORATORYCLIA [id number] [place] [address] [place] Sodium [Moles/Vol] 138 mmol/L Normal 136-144 [facility] Comment on above: Order Comment: Speci men Type: BLOOD SPECIMENOrdering Facility: [facility] Address: [address] [place] [address] Performed By: #### 2 4321-2 ####[facility] LABORATORYCLIA [id number] [place] [address] [place] Urea nitrogen [Mass/Vol] 16 mg/dL Normal 9-24 [facility] Comment on above: Order Comment: Speci men Type: BLOOD SPECIMENOrdering Facility: [facility] Address: [address] [place] [address] Performed By: #### 2 4321-2 ####[facility] LABORATORYCLIA [id number] [place] [id number] [place] CBC W Auto Differential pane l (Bld)on 02-12-2025 Basophils (Bld) [#/Vol] [facility] Basophils/100 WBC (Bld) 0.2 % [facility] Differential cell count method Nom (Bld) Auto [facility] Eosinophils (Bld) [#/Vol] 0.17 10*3/uL [facility] Eosinophils/100 WBC (Bld) 1.7 % [facility] Erythrocyte distribution width (RBC) [Ratio] 13.1 % 11.5 - 15.0 % [facility] Hematocrit (Bld) [Volume fraction] 45.4 % 39.0 - 51.0 % [facility] Hemoglobin (Bld) [Mass/Vol] 14.7 g/dL 13.0 - 17.0 g/dL [facility] Immature granulocytes (Bld) [#/Vol] 0.06 10*3/uL [facility] Immature granulocytes/100 WBC (Bld) 0.6 % [facility] Lymphocytes (Bld) [#/Vol] 3.88 10*3/uL [facility] Lymphocytes/100 WBC (Bld) 39.3 % [facility] MCH (RBC) [Entitic mass] 28.8 pg 26.0 - 34.0 pg [facility] MCHC (RBC) [Mass/Vol] 32.4 g/dL 30.5 - 36.0 g/dL [facility] MCV (RBC) [Entitic vol] 88.8 fL 80.0 - 100.0 fL [facility] Monocytes (Bld) [#/Vol] 0.82 10*3/uL [facility] Monocytes/100 WBC (Bld) 8.3 % [facility] Neutrophils (Bld) [#/Vol] 4.92 10*3/uL [facility] Neutrophils/100 WBC (Bld) 49.9 % [facility] Nucleated RBC (Bld) [#/Vol] [facility] Nucleated RBC/100 WBC (Bld) [Ratio] 0 % /100 WBC [facility] Platelet mean volume (Bld) [Entitic vol] 9.5 fL 9.0 - 12.7 fL [facility] Platelets (Bld) [#/Vol] 357 10*3/uL [facility] RBC (Bld) [#/Vol] 5.11 10*6/uL 4.20 - 6.0 0 m/uL [facility] WBC (Bld) [#/Vol] 9.87 10*3/uL [facility] Basophils (Bld) [#/Vol] 10*3/uL Normal <0.11 [facility] Comment on above: Order Comment: Speci men Type: BLOOD SPECIMENOrdering Facility: [facility] Address: [address] [place] [address] Performed By: #### 5 7021-8 ####[facility]ORATORYCLIA [id number] [address] [place] Basophils/100 WBC (Bld) 0.2 % Normal [facility] Comment on above: Order Comment: Speci men Type: BLOOD SPECIMENOrdering Facility: [facility] Address: [address] [place] [address] Performed By: #### 5 7021-8 ####[facility] LABORATORYCLIA [id number] [address] [place] Differential cell count method Nom (Bld) Auto Normal [facility] Comment on above: Order Comment: Speci men Type: BLOOD SPECIMENOrdering Facility: [facility] Address: [address] [place] [address] Performed By: #### 5 7021-8 ####[facility]ORATORYCLIA [id number] [place] [address] [place] Eosinophils (Bld) [#/Vol] 0.17 10*3/uL Normal <0.46 [facility] Comment on above: Order Comment: Speci men Type: BLOOD SPECIMENOrdering Facility: [facility] Address: [address] [place] [address] Performed By: #### 5 7021-8 ####[facility]ORATORYCLIA [id number] [address] [place] Eosinophils/100 WBC (Bld) 1.7 % Normal [facility] Comment on above: Order Comment: Speci men Type: BLOOD SPECIMENOrdering Facility: [facility] Address: [address] [place] [address] Performed By: #### 5 7021-8 ####[facility] LABORATORYCLIA [id number] [address] STATES [facility] Erythrocyte distribution width (RBC) [Ratio] 13.1 % Normal 11.5-15.0 [facility] Comment on above: Order Comment: Speci men Type: BLOOD SPECIMENOrdering Facility: [facility] Address: [address] [place] [address] Performed By: #### 5 7021-8 ####[facility] LABORATORYCLIA [id number] [address] [facility] Hematocrit (Bld) [Volume fraction] 45.4 % Normal 39.0-51.0 [facility] Comment on above: Order Comment: Speci men Type: BLOOD SPECIMENOrdering Facility: [facility] Address: [address] [place] [address] Performed By: #### 5 7021-8 ####[facility] LABORATORYCLIA [id number] [address] [place] Hemoglobin (Bld) [Mass/Vol] 14.7 g/dL Normal 13.0-17.0 [facility] Comment on above: Order Comment: Speci men Type: BLOOD SPECIMENOrdering Facility: [facility] Address: [address] [place] [address] Performed By: #### 5 7021-8 ####[facility] LABORATORYCLIA [id number] [address] [place] Immature granulocytes (Bld) [#/Vol] 0.06 10*3/uL Normal <0.10 [facility] Comment on above: Order Comment: Speci men Type: BLOOD SPECIMENOrdering Facility: [facility] Address: [address] [place] [address] Performed By: #### 5 7021-8 ####[facility] LABORATORYCLIA [id number] [address] [place] Immature granulocytes/100 WBC (Bld) 0.6 % Normal [facility] Comment on above: Order Comment: Speci men Type: BLOOD SPECIMENOrdering Facility: [facility] Address: [address] [place] [address] Performed By: #### 5 7021-8 ####[facility] LABORATORYCLIA [id number] [address] [place] Lymphocytes (Bld) [#/Vol] 3.88 10*3/uL Normal 1.00-4.00 [facility] Comment on above: Order Comment: Speci men Type: BLOOD SPECIMENOrdering Facility: [facility] Address: [address] [place] [address] Performed By: #### 5 7021-8 ####[facility]ORATORYCLIA [id number] [address] STATES OF [facility] Lymphocytes/100 WBC (Bld) 39.3 % Normal [facility] Comment on above: Order Comment: Speci men Type: BLOOD SPECIMENOrdering Facility: [facility] Address: [address] [place] [address] Performed By: #### 5 7021-8 ####[facility] LABORATORYCLIA [id number] [address] [place] MCH (RBC) [Entitic mass] 28.8 pg Normal 26.0-34.0 [facility] Comment on above: Order Comment: Speci men Type: BLOOD SPECIMENOrdering Facility: [facility] Address: [address] [place] [address] Performed By: #### 5 7021-8 ####[facility]ORATORYCLIA [id number] [address] [place] MCHC (RBC) [Mass/Vol] 32.4 g/dL Normal 30.5-36.0 [facility] Comment on above: Order Comment: Speci men Type: BLOOD SPECIMENOrdering Facility: [facility] Address: [address] [place] [address] Performed By: #### 5 7021-8 ####[facility]ORATORYCLIA [id number] [address] [place] MCV (RBC) [Entitic vol] 88.8 fL Normal 80.0-100.0 [facility] Comment on above: Order Comment: Speci men Type: BLOOD SPECIMENOrdering Facility: [facility] Address: [address] [place] [address] Performed By: #### 5 7021-8 ####[facility] LABORATORYCLIA [id number] [place] [address] [place] Monocytes (Bld) [#/Vol] 0.82 10*3/uL Normal <0.87 [facility] Comment on above: Order Comment: Speci men Type: BLOOD SPECIMENOrdering Facility: [facility] Address: [address] [place] [address] Performed By: #### 5 7021-8 ####[facility] LABORATORYCLIA [id number] [address] [place] Monocytes/100 WBC (Bld) 8.3 % Normal [facility] Comment on above: Order Comment: Speci men Type: BLOOD SPECIMENOrdering Facility: [facility] Address: [address] [place] [address] Performed By: #### 5 7021-8 ####[facility]ORATORYCLIA [id number] [address] [place] Neutrophils (Bld) [#/Vol] 4.92 10*3/uL Normal 1.45-7.50 [facility] Comment on above: Order Comment: Speci men Type: BLOOD SPECIMENOrdering Facility: [facility] Address: [address] [place] [address] Performed By: #### 5 7021-8 ####[facility] LABORATORYCLIA [id number] [address] [place] Neutrophils/100 WBC (Bld) 49.9 % Normal [facility] Comment on above: Order Comment: Speci men Type: BLOOD SPECIMENOrdering Facility: [facility] Address: [address] [place] [address] Performed By: #### 5 7021-8 ####[facility] LABORATORYCLIA [id number] [place] [address] [place] Nucleated RBC (Bld) [#/Vol] 10*3/uL Normal <0.01 [facility] Comment on above: Order Comment: Speci men Type: BLOOD SPECIMENOrdering Facility: [facility] Address: [address] [place] [address] Performed By: #### 5 7021-8 ####[facility]ORATORYCLIA [id number] [address] [place] Nucleated RBC/100 WBC (Bld) [Ratio] 0.0 /100 WBC Normal [facility] Comment on above: Order Comment: Speci men Type: BLOOD SPECIMENOrdering Facility: [facility] Address: [address] [place] [address] Performed By: #### 5 7021-8 ####[facility] LABORATORYCLIA [id number] [address] [place] Platelet mean volume (Bld) [Entitic vol] 9.5 fL Normal 9.0-12.7 [facility] Comment on above: Order Comment: Speci men Type: BLOOD SPECIMENOrdering Facility: [facility] Address: [address] [place] [address] Performed By: #### 5 7021-8 ####[facility] LABORATORYCLIA [id number] [address] [place] Platelets (Bld) [#/Vol] 357 10*3/uL Normal 150-400 [facility] Comment on above: Order Comment: Speci men Type: BLOOD SPECIMENOrdering Facility: [facility] Address: [address] [place] [address] Performed By: #### 5 7021-8 ####[facility] LABORATORYCLIA [id number] [place] [address] [place] RBC (Bld) [#/Vol] 5.11 10*6/uL Normal 4.20-6.00 [facility] Comment on above: Order Comment: Speci men Type: BLOOD SPECIMENOrdering Facility: [facility] Address: [address] [place] [id number] Performed By: #### 5 7021-8 ####[facility] LABORATORYCLIA [id number] [place] [address] [place] WBC (Bld) [#/Vol] 9.87 10*3/uL Normal 3.70-11.00 [facility] Comment on above: Order Comment: Speci men Type: BLOOD SPECIMENOrdering Facility: [facility] Address: [address] [place], [place] [id number] Performed By: #### 5 7021-8 ####[facility] LABORATORYCLIA [id number] [place] [address] [facility] [place] CNOVon 02-12-2025 CNOV Normal [facility] CT Abdomen and Pelvis WO con traston 02-12-2025 IMPRESSION: A 0.4 cm nonobstructing calculus present in the right proximal ureter, no hydronephrosis. Punctate nonobstructing calculus in the left interpolar region. Mess Cook: PSCB Transcribe Date/Time: Feb 12 2025 12:23P Dictated by : CRIS WHITE MD This examination was interpreted and the report reviewed and electronically signed by: CRIS WHITE MD on Feb 12 2025 12:36PM EST [facility] * * *Final Report* * * DATE OF EXAM: Feb 12 2025 12:08PM ATC 0529 - CT FLANK WO IVCON / PROCEDURE REASON: multiple diagnoses * * * * Physician Interpretation * * * * EXAMINATION: CT ABDOMEN AND PELVIS WITHOUT IV CONTRAST (Renal stone protocol) CLINICAL HISTORY: Hematuria, flank pain TECHNIQUE: Non-contrast imaging of the abdomen and pelvis was performed through the urinary tract. Study performed without intravenous or oral contrast to evaluate for urinary tract calculus. MQ: CTAbdPelvF_1 Contrast: IV contrast: None Oral contrast: None CT Radiation dose: Integrated dose-length product (DLP) for this visit = 720.30 mGy*cm. CT Dose Reduction Employed: Automated exposure control (AEC) COMPARISON: Radiograph of the lumbar spine 07/23/2024 and prior RESULT: Limitations: Unenhanced imaging is limited for the evaluation of some renal and other intra-abdominal and pelvic pathology. Urinary Tract: Right kidney and ureter: A 0.4 cm calculus is present in the right proximal ureter, area of the crossing vessel without associated hydronephrosis, likely corresponding to a nonobstructing calculus seen in the superior renal pole and 2022. No other renal calculi. No finding to suggest cyst or mass in the unenhanced kidney. Left kidney and ureter: The 0.3 cm nonobstructing calculus is present in the left interpolar region. No hydronephrosis. No finding to suggest cyst or mass in the unenhanced kidney. Bladder: No calculus. Abdomen and Pelvis: Liver: Unremarkable. Biliary: Cholecystectomy. Spleen: No splenomegaly. Pancreas: Unremarkable. Adrenals: Normal. GI Tract: No bowel dilation. Sigmoid diverticulosis without evidence of acute inflammation. Appendix is normal. Lymph Nodes: No lymphadenopathy. Mesentery/peritoneum: No ascites. Vasculature: - Abdominal aorta and iliac arteries: No aneurysm. - Celiac and SMA: Patent without stenosis. - Portal venous system (SMV, splenic vein, portal vein and branches): Patent. - Hepatic veins: Patent. - Other: None Pelvis: No mass or ascites. Enlarged prostate measures 4.2 cm in transverse diameter. Pelvic phleboliths. Bones and Soft Tissues: No acute abnormality. 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 Lower lumbar spondylosis. Lower thorax: Unremarkable. Localizer images: No additional findings. [employer] [facility] Provider, [facility] - 02/12/2025 * * *Final Report* * * DATE OF EXAM: Feb 12 2025 12:08PM ATC 0529 - CT FLANK WO IVCON / PROCEDURE REASON: multiple diagnoses * * * * Physician Interpretation * * * * EXAMINATION: CT ABDOMEN AND PELVIS WITHOUT IV CONTRAST (Renal stone protocol) CLINICAL HISTORY: Hematuria, flank pain TECHNIQUE: Non-contrast imaging of the abdomen and pelvis was performed through the urinary tract. Study performed without intravenous or oral contrast to evaluate for urinary tract calculus. MQ: CTAbdPelvF_1 Contrast: IV contrast: None Oral contrast: None CT Radiation dose: Integrated dose-length product (DLP) for this visit = 720.30 mGy*cm. CT Dose Reduction Employed: Automated exposure control (AEC) COMPARISON: Radiograph of the lumbar spine 07/23/2024 and prior RESULT: Limitations: Unenhanced imaging is limited for the evaluation of some renal and other intra-abdominal and pelvic pathology. Urinary Tract: Right kidney and ureter: A 0.4 cm calculus is present in the right proximal ureter, area of the crossing vessel without associated hydronephrosis, likely corresponding to a nonobstructing calculus seen in the superior renal pole and 2022. No other renal calculi. No finding to suggest cyst or mass in the unenhanced kidney. Left kidney and ureter: The 0.3 cm nonobstructing calculus is present in the left interpolar region. No hydronephrosis. No finding to suggest cyst or mass in the unenhanced kidney. Bladder: No calculus. Abdomen and Pelvis: Liver: Unremarkable. Biliary: Cholecystectomy. Spleen: No splenomegaly. Pancreas: Unremarkable. Adrenals: Normal. GI Tract: No bowel dilation. Sigmoid diverticulosis without evidence of acute inflammation. Appendix is normal. Lymph Nodes: No lymphadenopathy. Mesentery/peritoneum: No ascites. Vasculature: - Abdominal aorta and iliac arteries: No aneurysm. - Celiac and SMA: Patent without stenosis. - Portal venous system (SMV, splenic vein, portal vein and branches): Patent. - Hepatic veins: Patent. - Other: None Pelvis: No mass or ascites. Enlarged prostate measures 4.2 cm in transverse diameter. Pelvic phleboliths. Bones and Soft Tissues: No acute abnormality. 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 Lower lumbar spondylosis. Lower thorax: Unremarkable. Localizer images: No additional findings. IMPRESSION IMPRESSION: A 0.4 cm nonobstructing calculus present in the right proximal ureter, no hydronephrosis. Punctate nonobstructing calculus in the left interpolar region. Mess Cook: PSCEvi Transcribe Date/Time: Feb 12 2025 12:23P Dictated by : CRIS WHITE MD This examination was interpreted and the report reviewed and electronically signed by: CRIS WHITE MD on Feb 12 2025 12:36PM EST [facility] Radiology Study observation (narrative) [facility] CT Abdomen and Pelvis WO con trastOrdered By: [facility] Provider on 02-12-[address] [facility] [address] FLANK WO IVCONon 02-13-20 CT FLANK WO IVCON Normal [facility] Urinalysis complete panel (U )on 02-12-2025 Bilirubin Ql (U) Negative Negative [facility] Clarity (Unsp spec) Clear Clear [facility] Color (U) Light Yellow yellow [facility] Glucose Test strip (U) [Mass/Vol] Negative Trace, Negative [facility] Hemoglobin Ql (U) Negative Negative, Trace [facility] Interpretation and review of laboratory results Abnormal [facility] Ketones Ql (U) Negative Negative, Trace [facility] Leukocyte esterase Test strip Ql (U) 25 Douglas/uL Negative, 25 Douglas/uL [facility] Nitrite Ql (U) Negative Negative [facility] pH (U) 5.5 [pH] 5.0 - 8.0 [facility] Protein (U) [Mass/Vol] Negative Trace, Negative [facility] RBC LM.HPF (Urine sed) [#/Area] 11-25 /HPF Abnormal 0-3 /HPF [facility] Specific gravity (U) [Rel density] 1.024 1.005 - 1.030 [facility] Urobilinogen Ql (U) Normal Normal [facility] WBC LM.HPF (Urine sed) [#/Area] 0-5 /HPF 0-5 /HPF [facility] Bilirubin Ql (U) Negative Normal Negative [facility] Comment on above: Order Comment: Speci men Type: URINE SPECIMENOrdering Facility: [facility] Address: [address] [place] [address] Performed By: #### 2 4356-8 ####[facility] LABORATORYCLIA [id number] [address] STATES OF [facility] Clarity (Unsp spec) Clear Normal Clear [facility] Comment on above: Order Comment: Speci men Type: URINE SPECIMENOrdering Facility: [facility] Address: [address] [place] [address] Performed By: #### 2 4356-8 ####[facility]ORATORYCLIA [id number] [address] OF [facility] Color (U) Light Yellow Normal yellow [facility] Comment on above: Order Comment: Speci men Type: URINE SPECIMENOrdering Facility: [facility] Address: [address] [place] [address] Performed By: #### 2 4356-8 ####[facility] LABORATORYCLIA [id number] [address] Glucose Test strip (U) [Mass/Vol] Negative Normal Trace, Negative [facility] Comment on above: Order Comment: Speci men Type: URINE SPECIMENOrdering Facility: [facility] Address: [address] [place] [address] Performed By: #### 2 4356-8 ####[facility]ORATORYCLIA [id number] [address] [place] Hemoglobin Ql (U) Negative Normal Negative, Trace [facility] Comment on above: Order Comment: Speci men Type: URINE SPECIMENOrdering Facility: [facility] Address: [address] [place] [address] Performed By: #### 2 4356-8 ####[facility]ORATORYCLIA [id number] [address] Ketones Ql (U) Negative Normal Negative, Trace [facility] Comment on above: Order Comment: Speci men Type: URINE SPECIMENOrdering Facility: [facility] Address: [address] [place] [address] Performed By: #### 2 4356-8 ####[facility] LABORATORYCLIA [id number] [address] Leukocyte esterase Test strip Ql (U) 25 Douglas/uL Normal Negative, 25 Douglas/uL [facility] Comment on above: Order Comment: Speci men Type: URINE SPECIMENOrdering Facility: [facility] Address: [address] [place] [address] Performed By: #### 2 4356-8 ####[facility] LABORATORYCLIA [id number] [address] [place] Nitrite Ql (U) Negative Normal Negative [facility] Comment on above: Order Comment: Speci men Type: URINE SPECIMENOrdering Facility: [facility] Address: [address] [place] [address] Performed By: #### 2 4356-8 ####[facility] LABORATORYCLIA [id number] [place] [address] [place] pH (U) 5.5 [pH] Normal 5.0-8.0 [facility] Comment on above: Order Comment: Speci men Type: URINE SPECIMENOrdering Facility: [facility] Address: [address] [place] [address] Performed By: #### 2 4356-8 ####[facility] LABORATORYCLIA [id number] [place] [id number] [place] Protein (U) [Mass/Vol] Negative Normal Trace, Negative [facility] Comment on above: Order Comment: Speci men Type: URINE SPECIMENOrdering Facility: [facility] Address: [address] [place] [address] Performed By: #### 2 4356-8 ####[facility] LABORATORYCLIA [id number] [address] [place] RBC LM.HPF (Urine sed) [#/Area] 11-25 /HPF Abnormal 0-3 /HPF [facility] Comment on above: Order Comment: Speci men Type: URINE SPECIMENOrdering Facility: [facility] Address: [address] [place] [address] Performed By: #### 2 4356-8 ####[facility] LABORATORYCLIA [id number] [place] [id number] [place] Specific gravity (U) [Rel density] 1.024 Normal 1.005-1.030 [facility] Comment on above: Order Comment: Speci men Type: URINE SPECIMENOrdering Facility: [facility] Address: [address] [place] [address] Performed By: #### 2 4356-8 ####[facility] LABORATORYCLIA [id number] [address] Urobilinogen Ql (U) Normal Normal Normal [facility] Comment on above: Order Comment: Speci men Type: URINE SPECIMENOrdering Facility: [facility] Address: [address] [place] [address] Performed By: #### 2 4356-8 ####[facility] LABORATORYCLIA [id number] [place] [id number] [facility] WBC LM.HPF (Urine sed) [#/Area] 0-5 /HPF Normal 0-5 /HPF [facility] Comment on above: Order Comment: Speci men Type: URINE SPECIMENOrdering Facility: [facility] Address: [facility] [place] [id number] Performed By: #### 2 4356-8 ####[facility] LABORATORYCLIA [id number] [place] [address] [facility] CNOVon 02-09-2025 CNOV Normal [facility] CNPTOUTREACHon 01-29-2025 CNPTOUTREACH Normal [facility] ED NOTEon 01-27-2025 ED NOTE HNO ID: [id number] Author: ADRI CROW RN Service: Emergency Medicine Author Type: Registered Nurse Type: ED Notes Filed: 01/27/2025 23:21 Note Text: Xray notified Normal [facility] ED PROV NOTEon 01-27-2025 ED PROV NOTE Normal [facility] ED Triage Noteon 01-27-2025 ED Triage Note Normal [facility] XR ELBOW 3V AP/LAT/OTHER LTo n 01-27-2025 XR ELBOW 3V AP/LAT/OTHER LT Normal [facility] XR KNEE 4V AP/LAT/OBLS LTon 01-27-2025 XR KNEE 4V AP/LAT/OBLS LT Normal [facility] CNOVon 12-29-2024 CNOV Normal [facility] EMG(NEURO/NI)on 12-21-2024 Results can be seen in attached scanned documents. If you are a patient reviewing this test result, call the doctor who ordered the test with any questions. [facility] CNOVon 12-20-2024 CNOV Normal [facility] CNPNon 12-18-2024 CNPN Normal [facility] CNNURSEon 11-30-2024 CNNURSE Normal [facility] XR WRIST 3V PA/LAT/OBL RTon 11-30-2024 XR WRIST 3V PA/LAT/OBL RT Normal [facility] XR Wrist - right PA and Late ral and Obliqueon 11-30-2024 IMPRESSION: NO ACUTE BONY ABNORMALITY. NO ARTHROPATHY. Mess Cook: SONIA Transcribe Date/Time: Nov 30 2024 5:55P Dictated by : PHONG LOVE MD This examination was interpreted and the report reviewed and electronically signed by: PHONG LOVE MD on Nov 30 2024 5:56PM EST [facility] * * *Final Report* * * DATE OF EXAM: Nov 30 2024 2:39PM AWX [id number] - XR WRIST 3V PA/LAT/OBL RT / PROCEDURE REASON: Wrist pain, acute, right * * * * Physician Interpretation * * * * HISTORY: 49-YEAR-OLD MALE WITH Wrist pain, acute, right . right wrist pain, no injury. TECHNIQUE: XR WRIST 3V PA/LAT/OBL RT Laterality: RIGHT Number of different views (projections): 3 COMPARISON: None RESULT: Right wrist: Carpal bones, intercarpal joint spaces and carpal alignment are normal. No fracture. No erosions. [facility] Provider, [facility] [place] - 11/30/2024 * * *Final Report* * * DATE OF EXAM: Nov 30 2024 2:39PM AWX 5271 - XR WRIST 3V PA/LAT/OBL RT / PROCEDURE REASON: Wrist pain, acute, right * * * * Physician Interpretation * * * * HISTORY: 49-YEAR-OLD MALE WITH Wrist pain, acute, right . right wrist pain, no injury. TECHNIQUE: XR WRIST 3V PA/LAT/OBL RT Laterality: RIGHT Number of different views (projections): 3 COMPARISON: None RESULT: Right wrist: Carpal bones, intercarpal joint spaces and carpal alignment are normal. No fracture. No erosions. IMPRESSION IMPRESSION: NO ACUTE BONY ABNORMALITY. NO ARTHROPATHY. Mess Cook: SONIA Transcribe Date/Time: Nov 30 2024 5:55P Dictated by : PHONG LOVE MD This examination was interpreted and the report reviewed and electronically signed by: PHONG LOVE MD on Nov 30 2024 5:56PM EST [facility] Radiology Study observation (narrative) [facility] XR Wrist - right PA and Late ral and ObliqueOrdered By: Ccf Provider on 11-30-2024 [facility] CNPNon 11-21-2024 CNPN Normal [facility] CNPNon 11-13-2024 CNPN Normal [facility] JACK BY IFA WITH REFLEXon Nuclear Ab Ql (S) Negative Normal Negative [facility] Comment on above: Order Comment: Lennox luna Type: BLOOD SPECIMENOrdering Facility: [facility] Address: [address] [place] [address] Result Comment: Anti -nuclear antibody test is used as an aid in diagnosis of systemic autoimmune diseases. Where positive and clinically warranted, follow-up using disease-specific testing is recommended. Low positive titers are not uncommon with advanced age, certain chronic infections, and malignancies among others.Test methodology: Indirect fluorescence immunoassay (IFA) using HEp-2 cells. Performed By: #### A NAIFR ####[facility] LABCLIA [id number] [place] [address] [place] C-REACTIVE PROTEINon 025 CRP [Mass/Vol] mg/dL NINF - 0.9 mg/dL [facility] CNOVon 11-09-2024 CNOV Normal [facility] CRP SerPl-mCncon 11-09-2024 CRP [Mass/Vol] mg/L Normal <0.9 [facility] Comment on above: Order Comment: Lennox luna Type: BLOOD SPECIMENOrdering Facility: [facility] Address: [address] [place] [address] Performed By: #### 3 084-1, 1988-03 ####[facility] LABORATORYCLIA [id number] [place] [address] [place] ESR Westergren method (Bld) [Velocity]on 11-09-2024 ESR (Bld) [Velocity] 16 mm/h High 0-15 [facility] Comment on above: Order Comment: Lennox luna Type: BLOOD SPECIMENOrdering Facility: [facility] Address: [address] [place] [address] Performed By: #### 4 537-7 ####[facility] LABCLIA [id number] [place] [id number] [place] No Panel Informationon 11-09 Interpretation and review of laboratory results Normal [facility] Rheumatoid fact SerPl-aCncon 11-09-2024 Rheumatoid factor Qn [IU]/mL Normal <16 [facility] Comment on above: Order Comment: Speci men Type: BLOOD SPECIMENOrdering Facility: [facility] Address: [address] [place] [address] Performed By: #### 1 1572-5 ####[facility] LABCLIA [id number] [place] [address] [place] URIC ACIDon 11-09-2024 Urate [Mass/Vol] 5.8 mg/dL 4.0 - 8.1 mg/dL [facility] Urate SerPl-mCncon Urate [Mass/Vol] 5.8 mg/dL Normal 4.0-8.1 [facility] Comment on above: Order Comment: Speci men Type: BLOOD SPECIMENOrdering Facility: [facility] Address: [address] [place] [address] Performed By: #### 3 084-1, 1988-03 ####[facility] LABORATORYCLIA [id number] [place], [place] [address] [place] [address] [place] CNPNon 10-20-2024 CNPN Normal [facility] CNOVon 10-19-2024 CNOV Normal [facility] Testost SerP-mCncon 024 Testosterone [Mass/Vol] 396 ng/dL Normal 193-824 [facility] Comment on above: Order Comment: Speci men Type: BLOOD SPECIMENOrdering Facility: [facility] Address: [address] [place] [address] Result Comment: A te stosterone level in the 193-320 ng/dL range with associated clinical symptoms is considered low and may indicate hypogonadism (from NEJM 2010 363:123-135). Results >320 ng/dL are considered normal. Performed By: #### 2 986-8 ####[facility] LABORATORYCLIA [id number] [place] [address] [place] CNOVon 10-12-2024 CNOV Normal [facility] CNPNon 09-27-2024 CNPN Normal [facility] CNOVon 09-20-2024 CNOV Normal [facility] CNOVon 08-23-2024 CNOV Normal [facility] CNPTOUTREACHon 08-21-2024 CNPTOUTREACH Normal [facility] ED NOTEon 08-18-2024 ED NOTE HNO ID: [id number] Author: LAURA CHRISTIANSEN RN Service: Abstract Author Type: Registered Nurse Type: ED Notes Filed: 08/18/2024 18:30 Note Text: Bleeding well controlled. Wound wrapped with 4x4 and koban Normal [facility] ED NOTE Normal [facility] ED PROV NOTEon 08-18-2024 ED PROV NOTE Normal [facility] CNOVon 08-08-2024 CNOV Normal [facility] CNPNon 08-08-2024 CNPN Normal [facility] CNPNon 08-02-2024 CNPN Normal [facility] CNPTOUTREACHon 08-02-2024 CNPTOUTREACH [facility] ALLIED HEALTHon 07-31-2024 ALLIED HEALTH [facility] APAP SerPl-mCncon 07-31-2024 Acetaminophen [Mass/Vol] ug/mL Low 08-30 [facility] Comment on above: Order Comment: Speci men Type: BLOOD SPECIMENOrdering Facility: [facility] Address: [address] [place] [address] Result Comment: Toxi c > 150 ug/mL 4 hours post ingestionThe John Gomez nomogram can be used to estimate the probability of hepatotoxicity via the relationship of plasma acetaminophen concentration to the post ingestion interval. (Amelia. Pediatrics. 1975. 55:871 to 876 and John et al. Arch Animal Surgeon Med. 1981. 141:380 to 385).Reference ranges and high/low indicator flags are provided as general guidelines only. The treating physician must determine appropriate target levels/dosing based on the specific clinical situation. Performed By: #### 4 024-6, 3298-7, 5643-2, 75568-3 ####[facility] LABCLIA [id number] [place] [id number] [place] CBC W Auto Differential pane l (Bld)on 07-31-2024 Basophils (Bld) [#/Vol] 10*3/uL Normal <0.11 [facility] Comment on above: Order Comment: Speci men Type: BLOOD SPECIMENOrdering Facility: [facility] Address: [address] [place] [address] Performed By: #### 5 7021-8 ####[facility] [employer] LABCLIA [id number] [place] [address] [place] Basophils/100 WBC (Bld) 0.2 % Normal [facility] Comment on above: Order Comment: Speci men Type: BLOOD SPECIMENOrdering Facility: [facility] Address: [address] [place] [address] Performed By: #### 5 7021-8 ####[employer] Analytics[employer]HA[employer] LABCLIA [id number] [place] [address] [place] Differential cell count method Nom (Bld) Auto Normal [facility] Comment on above: Order Comment: Speci men Type: BLOOD SPECIMENOrdering Facility: [facility] Address: [address] [place] [address] Performed By: #### 5 7021-8 ####[employer] AnalyticsSUHAIL [employer] [facility] LABCLIA [id number] [place] [address] [place] Eosinophils (Bld) [#/Vol] 0.19 10*3/uL Normal <0.46 [facility] Comment on above: Order Comment: Speci men Type: BLOOD SPECIMENOrdering Facility: [facility] Address: [address] [place] [address] Performed By: #### 5 7021-8 ####[employer] [facility] LABCLIA [id number] [place] [address] [place] Eosinophils/100 WBC (Bld) 3.1 % Normal [facility] Comment on above: Order Comment: Speci men Type: BLOOD SPECIMENOrdering Facility: [facility] Address: [address] [place] [address] Performed By: #### 5 7021-8 ####[facility] LABCLIA [id number] [place] [address] [place] Erythrocyte distribution width (RBC) [Ratio] 13.7 % Normal 11.5-15.0 [facility] Comment on above: Order Comment: Speci men Type: BLOOD SPECIMENOrdering Facility: [facility] Address: [address] [place] [address] Performed By: #### 5 7021-8 ####[facility] LABCLIA [id number] [place] [address] [place] Hematocrit (Bld) [Volume fraction] 40.3 % Normal 39.0-51.0 [facility] Comment on above: Order Comment: Speci men Type: BLOOD SPECIMENOrdering Facility: [facility] Address: [address] [place] [address] Performed By: #### 5 7021-8 ####DCSUHAIL [facility]CHA LABCLIA [id number] [place] [address] [place] Hemoglobin (Bld) [Mass/Vol] 13.3 g/dL Normal 13.0-17.0 [facility] Comment on above: Order Comment: Speci men Type: BLOOD SPECIMENOrdering Facility: [facility] Address: [address] [place] [address] Performed By: #### 5 7021-8 ####[facility] LABCLIA [id number] [place] [address] [place] Immature granulocytes (Bld) [#/Vol] 10*3/uL Normal <0.10 [facility] Comment on above: Order Comment: Speci men Type: BLOOD SPECIMENOrdering Facility: [facility] Address: [address] [place] [address] Performed By: #### 5 7021-8 ####[facility] LABCLIA [id number] [place] [address] [facility] Immature granulocytes/100 WBC (Bld) 0.2 % Normal [facility] Comment on above: Order Comment: Speci men Type: BLOOD SPECIMENOrdering Facility: [facility] Address: [address] [place] [address] Performed By: #### 5 7021-8 ####[facility] [employer] LABCLIA [id number] [place] [address] [place] Lymphocytes (Bld) [#/Vol] 2.22 10*3/uL Normal 1.00-4.00 [facility] Comment on above: Order Comment: Speci men Type: BLOOD SPECIMENOrdering Facility: [facility] Address: [address] [place] [address] Performed By: #### 5 7021-8 ####[facility] [employer] LABCLIA [id number] [place] [address] [facility] Lymphocytes/100 WBC (Bld) 35.8 % Normal [facility] Comment on above: Order Comment: Speci men Type: BLOOD SPECIMENOrdering Facility: [facility] Address: [address] [place] [address] Performed By: #### 5 7021-8 ####[facility] [employer] [facility] LABCLIA [id number] [place] [address] [place] MCH (RBC) [Entitic mass] 29.3 pg Normal 26.0-34.0 [facility] Comment on above: Order Comment: Speci men Type: BLOOD SPECIMENOrdering Facility: [facility] Address: [address] [place] [address] Performed By: #### 5 7021-8 ####[facility] LABCLIA [id number] [place] [address] [place] MCHC (RBC) [Mass/Vol] 33.0 g/dL Normal 30.5-36.0 [facility] Comment on above: Order Comment: Speci men Type: BLOOD SPECIMENOrdering Facility: [facility] Address: [address] [place] [address] Performed By: #### 5 7021-8 ####[facility] LABCLIA [id number] [place] [address] [place] MCV (RBC) [Entitic vol] 88.8 fL Normal 80.0-100.0 [facility] Comment on above: Order Comment: Speci men Type: BLOOD SPECIMENOrdering Facility: [facility] Address: [address] [place] [address] Performed By: #### 5 7021-8 ####[facility] LABCLIA [id number] [place] [address] [place] Monocytes (Bld) [#/Vol] 0.43 10*3/uL Normal <0.87 [facility] Comment on above: Order Comment: Speci men Type: BLOOD SPECIMENOrdering Facility: [facility] Address: [address] [place] [address] Performed By: #### 5 7021-8 ####[facility] LABCLIA [id number] [place] [address] [place] Monocytes/100 WBC (Bld) 6.9 % Normal [facility] Comment on above: Order Comment: Speci men Type: BLOOD SPECIMENOrdering Facility: [facility] Address: [address] [place] [address] Performed By: #### 5 7021-8 ####[facility] LABCLIA [id number] [place] [address] [place] Neutrophils (Bld) [#/Vol] 3.34 10*3/uL Normal 1.45-7.50 [facility] Comment on above: Order Comment: Speci men Type: BLOOD SPECIMENOrdering Facility: [facility] Address: [address] [place] [address] Performed By: #### 5 7021-8 ####[facility] LABCLIA [id number] [place] [address] [place] Neutrophils/100 WBC (Bld) 53.8 % Normal [facility] Comment on above: Order Comment: Speci men Type: BLOOD SPECIMENOrdering Facility: [facility] Address: [address] [place] [address] Performed By: #### 5 7021-8 ####[facility] LABCLIA [id number] [place] [address] [place] Nucleated RBC (Bld) [#/Vol] Normal [facility] Comment on above: Order Comment: Speci men Type: BLOOD SPECIMENOrdering Facility: [facility] Address: [address] [place] [address] Performed By: #### 5 7021-8 ####[facility] LABCLIA [id number] [place] [address] [place] Nucleated RBC/100 WBC (Bld) [Ratio] Normal [facility] Comment on above: Order Comment: Speci men Type: BLOOD SPECIMENOrdering Facility: [facility] Address: [address] [place] [address] Performed By: #### 5 7021-8 ####[facility] LABCLIA [id number] [place] [address] [place] Platelet mean volume (Bld) [Entitic vol] 9.0 fL Normal 9.0-12.7 [facility] Comment on above: Order Comment: Speci men Type: BLOOD SPECIMENOrdering Facility: [facility] Address: [address] [place] [address] Performed By: #### 5 7021-8 ####[facility] LABCLIA [id number] [place] [address] [place] Platelets (Bld) [#/Vol] 283 10*3/uL Normal 150-400 [facility] Comment on above: Order Comment: Speci men Type: BLOOD SPECIMENOrdering Facility: [facility] Address: [address] [place] [address] Performed By: #### 5 7021-8 ####[facility] [employer] LABCLIA [id number] [place] [address] [place] RBC (Bld) [#/Vol] 4.54 10*6/uL Normal 4.20-6.00 [facility] Comment on above: Order Comment: Speci men Type: BLOOD SPECIMENOrdering Facility: [facility] Address: [address] [place] [address] Performed By: #### 5 7021-8 ####[facility] [employer] LABCLIA [id number] [place] [address] [place] [facility] WBC (Bld) [#/Vol] 6.20 10*3/uL Normal 3.70-11.00 [facility] Comment on above: Order Comment: Speci men Type: BLOOD SPECIMENOrdering Facility: [facility] Address: [address] [place] [address] Performed By: #### 5 7021-8 ####[facility] [employer] LABCLIA [id number] [place] [address] [facility] [place] Comprehensive metabolic 2000 panelon 07-31-2024 Albumin [Mass/Vol] 3.9 g/dL Normal 3.9-4.9 [facility] Comment on above: Order Comment: Speci men Type: BLOOD SPECIMENOrdering Facility: [facility] Address: [address] [place] [address] Performed By: #### 4 024-6, 3298-7, 5643-2, 73904-5 ####[facility] [employer] LABCLIA [id number] [place] [address] [facility] [place] ALP [Catalytic activity/Vol] 139 U/L High 38-113 [facility] Comment on above: Order Comment: Speci men Type: BLOOD SPECIMENOrdering Facility: [facility] Address: [address] [place] [address] Performed By: #### 4 024-6, 3298-7, 5643-2, 24504-5 ####[facility] [employer] LABCLIA [id number] [place] [address] [place] ALT [Catalytic activity/Vol] 26 U/L Normal 10-54 [facility] Comment on above: Order Comment: Speci men Type: BLOOD SPECIMENOrdering Facility: [facility] Address: [address] [place] [address] Performed By: #### 4 024-6, 3298-7, 5643-2, 57327-2 ####[facility] LABCLIA [id number] [place] [address] [place] Anion gap [Moles/Vol] 7 mmol/L Low 8-15 [facility] Comment on above: Order Comment: Speci men Type: BLOOD SPECIMENOrdering Facility: [facility] Address: [address] [place] [address] Performed By: #### 4 024-6, 3298-7, 5643-2, 70531-8 ####[facility] [employer] LABCLIA [id number] [place] [address] [place] AST [Catalytic activity/Vol] 20 U/L Normal 14-40 [facility] Comment on above: Order Comment: Speci men Type: BLOOD SPECIMENOrdering Facility: [facility] Address: [address] [place] [address] Performed By: #### 4 024-6, 3298-7, 5643-2, 05451-8 ####[facility] LABCLIA [id number] [place] [address] [place] Bilirubin [Mass/Vol] 0.6 mg/dL Normal 0.2-1.3 [facility] Comment on above: Order Comment: Speci men Type: BLOOD SPECIMENOrdering Facility: [facility] Address: [address] [place] [address] Result Comment: Use of this assay is not recommended for patients undergoing treatment with eltrombopag due to the potential for falsely elevated results. Performed By: #### 4 024-6, 3298-7, 5643-2, 66406-9 ####[facility] LABCLIA [id number] [place] [address] [place] Calcium [Mass/Vol] 8.7 mg/dL Normal 8.5-10.2 [facility] Comment on above: Order Comment: Speci men Type: BLOOD SPECIMENOrdering Facility: [facility] Address: [address] [place] [address] Performed By: #### 4 024-6, 3298-7, 5643-2, 47047-0 ####[employer] LABCLIA [id number] [place] [address] [place] Chloride [Moles/Vol] 109 mmol/L High 98-107 [facility] [facility] Comment on above: Order Comment: Speci men Type: BLOOD SPECIMENOrdering Facility: [facility] Address: [address] [place] [address] Performed By: #### 4 024-6, 3298-7, 5643-2, 04758-6 ####[employer] LABCLIA [id number] [place] [address] [place] CO2 [Moles/Vol] 21 mmol/L Low 22-30 [facility] Comment on above: Order Comment: Speci men Type: BLOOD SPECIMENOrdering Facility: [facility] Address: [address] [place] [address] Performed By: #### 4 024-6, 3298-7, 5643-2, 39147-6 ####[employer] LABCLIA [id number] [place] [address] [place] Creatinine [Mass/Vol] 0.96 mg/dL Normal 0.73-1.22 [facility] Comment on above: Order Comment: Lennox luna Type: BLOOD SPECIMENOrdering Facility: [facility] Address: [address] [place] [address] Result Comment: Use of this assay is not recommended for patients undergoing treatment with phenindione, due to the potential for falsely depressed results. Performed By: #### 4 024-6, 3298-7, 5643-2, 85952-2 ####[facility] LABIA [id number] [place] [address] [facility] [place] Creatinine and Glomerular filtration rate.predicted panel (S/P/Bld) 98 mL/min/1.73m??? Normal >=60 [facility] Comment on above: Order Comment: Lennox luna Type: BLOOD SPECIMENOrdering Facility: [facility] Address: [address] [place] [address] Result Comment: Guerita mated Glomerular Filtration Rate (eGFR) is calculated using the 2020 CKD-EPI creatinine equation. This equation utilizes serum creatinine, sex, and age as parameters. The creatinine assay has traceable calibration to isotope dilution-mass spectrometry. Refer to KDIGO guidelines for clinical interpretation. In patients with unstable renal function, e.g. those with acute kidney injury, the eGFR may not accurately reflect actual GFR. Performed By: #### 4 024-6, 3298-7, 5643-2, 50951-4 ####[facility] LABIA [id number] [place] [address] [place] Glucose [Mass/Vol] 138 mg/dL High 74-99 [facility] Comment on above: Order Comment: Lennox luna Type: BLOOD SPECIMENOrdering Facility: [facility] Address: [address] [place] [address] Result Comment: The [place] Diabetes Association (ADA) provides guidance for cutoff values for fasting glucose and random glucose. The ADA defines fasting as no caloric intake for at least 8 hours. Fasting plasma glucose results between 100 to 125 mg/dL indicate increased risk for diabetes (prediabetes).Fasting plasma glucose results greater than or equal to 126 mg/dL meet the criteria for diagnosis of diabetes. In the absence of unequivocal hyperglycemia, results should be confirmed by repeat testing. In a patient with classic symptoms of hyperglycemia or hyperglycemic crisis, random plasma glucose results greater than or equal to 200 mg/dL meet the criteria for diagnosis of diabetes.Reference: Standards of Medical Care in Diabetes 2016, [place] Diabetes Association. Diabetes Care. 2016.39(Suppl 1). Performed By: #### 4 024-6, 3298-7, 5643-2, 62326-6 ####[employer]AL [employer] LABCLIA [id number] [place] [address] [place] Potassium [Moles/Vol] 3.5 mmol/L Low 3.7-5.1 [facility] Comment on above: Order Comment: Lennox luna Type: BLOOD SPECIMENOrdering Facility: [facility] Address: [address] [place] [address] Performed By: #### 4 024-6, 3298-7, 5643-2, 32149-1 ####[facility] [employer] LABCLIA [id number] [place] [address] [place] Protein [Mass/Vol] 6.4 g/dL Normal 6.3-8.0 [facility] Comment on above: Order Comment: Lennox luna Type: BLOOD SPECIMENOrdering Facility: [facility] Address: [address] [place] [address] Performed By: #### 4 024-6, 3298-7, 5643-2, 60729-5 ####[facility] [employer] LABCLIA [id number] [place] [address] [place] Sodium [Moles/Vol] 137 mmol/L Normal 136-144 [facility] Comment on above: Order Comment: Lennox luna Type: BLOOD SPECIMENOrdering Facility: [facility] Address: [address] [place] [address] Performed By: #### 4 024-6, 3298-7, 5643-2, 37352-9 ####DCSUHAIL [employer] LABCLIA [id number] [place] [address] [place] Urea nitrogen [Mass/Vol] 7 mg/dL Low 9-24 [facility] Comment on above: Order Comment: Speci men Type: BLOOD SPECIMENOrdering Facility: [facility] Address: [place] [id number] Performed By: #### 4 024-6, 3298-7, 5643-2, 16208-5 ####[facility] [employer] LABCLIA [id number] [place] [address] [facility] ECG COMPLETEon 07-31-2024 ECG COMPLETE [facility] ED NOTEon 07-31-2024 ED NOTE HNO ID: [id number] Author: ALEXSANDER STEELE RN Service: Emergency Medicine Author Type: Registered Nurse Type: ED Notes Filed: 07/31/2024 18:03 Note Text: Report called to Nurse Kristopher, at [facility]. All questions answered. [facility] ED NOTE HNO ID: [id number] Author: ALEXSANDER STEELE RN Service: Emergency Medicine Author Type: Registered Nurse Type: ED Notes Filed: 07/31/2024 15:12 Note Text: Belongings locked in locker. [facility] ED NOTE HNO ID: [id number] Author: MARYSE PAREDES RN Service: Emergency Medicine Author Type: Registered Nurse Type: ED Notes Filed: 07/31/2024 14:47 Note Text: Patient was given snacks and beverages. Patient has no complaints at this time. [facility] ED NOTE HNO ID: [id number] Author: MARYSE PAREDES, MARCIA Service: Emergency Medicine Author Type: Registered Nurse Type: ED Notes Filed: 07/31/2024 14:21 Note Text: Patient is still on phone talking with behavioral health intake. [facility] ED NOTE HNO ID: [id number] Author: MARYSE PAREDES, MARCIA Service: Emergency Medicine Author Type: Registered Nurse Type: ED Notes Filed: 07/31/2024 14:07 Note Text: Spoke with [facility] Kiera RN regarding patient. [facility] ED NOTE HNO ID: [id number] Author: MARYSE PAREDES RN Service: Emergency Medicine Author Type: Registered Nurse Type: ED Notes Filed: 07/31/2024 13:51 Note Text: Patient drinking water and will let nursing know when he is able to urinate. Normal [facility] ED NOTE Normal [facility] ED PROV NOTEon 07-31-2024 ED PROV NOTE Normal [facility] Ethanol SerPl-mCncon 07-31- 024 Ethanol [Mass/Vol] mg/dL Normal <11 [facility] Comment on above: Order Comment: Speci men Type: BLOOD SPECIMENOrdering Facility: [facility] Address: [address] [place] [address] Performed By: #### 4 024-6, 3298-7, 5643-2, 82184-7 ####[employer]JNISUHAIL [employer] LABJAVONIA [id number] [place] [address] [place] Salicylates [facility] Salicylates [Mass/Vol] mg/dL Low 3.0-30.0 [facility] Comment on above: Order Comment: Speci men Type: BLOOD SPECIMENOrdering Facility: [facility] Address: [address] [place] [address] Result Comment: The therapeutic range varies and has been reported to be 3.0 to 10.0 mg/dL for anti pyretic/analgesic conditions and 15.0 to 30.0 mg/dL for anti inflammatory/rheumatic fever conditions. Ranges published by the instrument fisher diving.Reference ranges and high/low indicator flags are provided as general guidelines only. The treating physician must determine appropriate target levels/dosing based on the specific clinical situation. Performed By: #### 4 024-6, 3298-7, 5643-2, 54322-3 ####[employer] AnalyticsSUHAIL [employer]aGenesisIA [id number] [place] [address] [place] TOXICOLOGY SCREEN, ROUTINE U RINEon 07-31-2024 Amphetamines Confirm (U) [Mass/Vol] Negative Normal Negative [facility] Comment on above: Order Comment: Speci men Type: URINE SPECIMENOrdering Facility: [facility] Address: [facility] [place] [address] Result Comment: Cuto ff threshold at 1000 ng/mL. Performed By: #### U TOX2 ####[employer] LABCLIA [id number] [place] [address] [place] BARBITURATES, URINE Negative Normal Negative [facility] Comment on above: Order Comment: Speci men Type: URINE SPECIMENOrdering Facility: [facility] Address: [address] [place] [address] Result Comment: Cuto ff threshold at 200 ng/mL. Performed By: #### U TOX2 ####[employer] LABCLIA [id number] [place] [address] [place] BENZODIAZEPINES, UR Negative Normal Negative [facility] Comment on above: Order Comment: Speci men Type: URINE SPECIMENOrdering Facility: [facility] Address: [address] [place] [address] Result Comment: Cuto ff threshold at 200 ng/mL. Performed By: #### U TOX2 ####[employer] [employer] LABCLIA [id number] [place] [address] [place] Cannabinoids Screen Ql (U) Negative Normal Negative [facility] Comment on above: Order Comment: Speci men Type: URINE SPECIMENOrdering Facility: [facility] Address: [address] [place] [address] Result Comment: Cuto ff threshold at 50 ng/mL. Performed By: #### U TOX2 ####[employer] [employer] LABCLIA [id number] [place] [address] [place] Cocaine Ql (U) Negative Normal Negative [facility] Comment on above: Order Comment: Speci men Type: URINE SPECIMENOrdering Facility: [facility] Address: [address] [place] [address] Result Comment: Cuto ff threshold at 300 ng/mL. Performed By: #### U TOX2 ####[employer] LABCLIA [id number] [place] [address] Ethanol (U) [Mass/Vol] <10 Normal <11 [facility] Comment on above: Order Comment: Speci men Type: URINE SPECIMENOrdering Facility: [facility] Address: [address] [place] [address] Performed By: #### U TOX2 ####RUPAL [employer] LABCLIA [id number] [place] [address] [facility] Opiates Screen Ql (U) Negative Normal Negative [facility] Comment on above: Order Comment: Speci men Type: URINE SPECIMENOrdering Facility: [facility] Address: [address] [place] [address] Result Comment: Cuto ff threshold at 300 ng/mL. Performed By: #### U TOX2 ####RAJNISUHAIL [employer] LABCLIA [id number] [place] [address] [facility] oxyCODONE cutoff Screen (U) [Mass/Vol] Negative Normal Negative [facility] Comment on above: Order Comment: Speci men Type: URINE SPECIMENOrdering Facility: [facility] Address: [address] [place] [address] Result Comment: Cuto ff threshold at 100 ng/mL. Performed By: #### U TOX2 ####RAJNISUHAIL [employer] LABCLIA [id number] [place] [address] [facility] Phencyclidine Ql (U) Negative Normal Negative [facility] Comment on above: Order Comment: Speci men Type: URINE SPECIMENOrdering Facility: [facility] Address: [address] [place] [address] Result Comment: Cuto ff threshold at 25 ng/mL. Performed By: #### U TOX2 ####[employer] AnalyticsSUHAIL [employer] LABCLIA [id number] [place] [address] [facility] Urinalysis complete panel (U )on 07-31-2024 Bacteria LM.HPF (Urine sed) [#/Area] Few Abnormal None Seen [facility] Comment on above: Order Comment: Speci men Type: URINE SPECIMENOrdering Facility: [facility] Address: [address] [place] [address] Performed By: #### 2 4356-8 ####[employer] LABCLIA [id number] [place] [address] [facility] Bilirubin Ql (U) Negative Normal Negative [facility] Comment on above: Order Comment: Speci men Type: URINE SPECIMENOrdering Facility: [facility] Address: [address] [place] [address] Performed By: #### 2 4356-8 ####[employer] LABCLIA [id number] [place] [address] [facility] Clarity (Unsp spec) Clear Normal Clear [facility] Comment on above: Order Comment: Speci men Type: URINE SPECIMENOrdering Facility: [facility] Address: [address] [place] [address] Performed By: #### 2 4356-8 ####[employer] LABCLIA [id number] [place] [address] [facility] Color (U) Yellow Normal Yellow [facility] Comment on above: Order Comment: Speci men Type: URINE SPECIMENOrdering Facility: [facility] Address: [address] [place] [address] Performed By: #### 2 4356-8 ####[employer] LABCLIA [id number] [place] [address] [facility] Epithelial cells LM.HPF (Urine sed) [#/Area] Moderate Normal [facility] Comment on above: Order Comment: Speci men Type: URINE SPECIMENOrdering Facility: [facility] Address: [address] [place] [address] Performed By: #### 2 4356-8 ####[employer] LABCLIA [id number] [place] [address] [facility] Glucose Test strip (U) [Mass/Vol] Negative Normal Trace, Negative [facility] Comment on above: Order Comment: Speci men Type: URINE SPECIMENOrdering Facility: [facility] Address: [address] [place] [address] Performed By: #### 2 4356-8 ####[employer] LABCLIA [id number] [address] STATES [facility] Hemoglobin Ql (U) Trace Normal Negative, Trace [facility] Comment on above: Order Comment: Speci men Type: URINE SPECIMENOrdering Facility: [facility] Address: [address] [place] [address] Performed By: #### 2 4356-8 ####[employer] LABCLIA [id number] [address] Ketones Ql (U) Negative Normal Negative, Trace [facility] Comment on above: Order Comment: Speci men Type: URINE SPECIMENOrdering Facility: [facility] Address: [address] [place] [address] Performed By: #### 2 4356-8 ####[employer] LABCLIA [id number] [address] Leukocyte esterase Test strip Ql (U) Negative Normal Negative, 25 [place]/uL [facility] Comment on above: Order Comment: Speci men Type: URINE SPECIMENOrdering Facility: [facility] Address: [address] [place] [address] Performed By: #### 2 4356-8 ####[employer] LABCLIA [id number] [address] [place] [facility] Nitrite Ql (U) Negative Normal Negative [facility] Comment on above: Order Comment: Speci men Type: URINE SPECIMENOrdering Facility: [facility] Address: [address] [place] [address] Performed By: #### 2 4356-8 ####[employer] LABCLIA [id number] [address] [place] pH (U) 6.0 [pH] Normal 5.0-8.0 [facility] Comment on above: Order Comment: Speci men Type: URINE SPECIMENOrdering Facility: [facility] Address: [address] [place] [address] Performed By: #### 2 4356-8 ####GALLATIN [employer] LABIA [id number] [place] [address] [facility] [place] Protein (U) [Mass/Vol] 1+ Abnormal Trace, Negative [facility] Comment on above: Order Comment: Speci men Type: URINE SPECIMENOrdering Facility: [facility] Address: [address] [place] [address] Performed By: #### 2 4356-8 ####[facility] [id number] [place] [address] [place] RBC LM.HPF (Urine sed) [#/Area] 0-3 /HPF Normal 0-3 /HPF [facility] Comment on above: Order Comment: Speci men Type: URINE SPECIMENOrdering Facility: [facility] Address: [address] [place] [address] Performed By: #### 2 4356-8 ####[facility] LABIA [id number] [place] [address] [facility] [place] Specific gravity (U) [Rel density] >1.030 High 1.005-1.030 [facility] Comment on above: Order Comment: Speci men Type: URINE SPECIMENOrdering Facility: [facility] Address: [address] [place] [address] Performed By: #### 2 4356-8 ####[facility] LABIA [id number] [place] [address] [facility] Urobilinogen Ql (U) Normal Normal Normal [facility] Comment on above: Order Comment: Speci men Type: URINE SPECIMENOrdering Facility: [facility] Address: [address] [place] [address] Performed By: #### 2 4356-8 ####[facility] LABCLIA [id number] [place] [address] [facility] WBC LM.HPF (Urine sed) [#/Area] 0-5 /HPF Normal 0-5 /HPF [facility] Comment on above: Order Comment: Speci men Type: URINE SPECIMENOrdering Facility: [facility] Address: [address] [place] [address] Performed By: #### 2 4356-8 ####[facility] LABCLIA [id number] [place] [address] [place] CNPNon 07-17-2024 CNPN Normal [facility] CNPNon 07-14-2024 CNPN Normal [facility] CNOVon 07-13-2024 CNOV Normal [facility] 25(OH)D3 SerPl-mCncon 2023 25-hydroxyvitamin D3 [Mass/Vol] 14.3 ng/mL Low >=30.0 [facility] Comment on above: Order Comment: Speci men Type: BLOOD SPECIMENOrdering Facility: [facility] Address: [address] [place] [address] Result Comment: Clas sification of 25 [place] Vitamin D status:Deficiency: <= 20.0 ng/ml.Insufficiency: 21.0-29.0 ng/ml.Sufficiency: >= 30.0 ng/ml. Performed By: #### 1 989-3 ####[facility] LABORATORYCLIA [id number] [address] [place] CBC W Auto Differential pane l (Bld)on 06-22-2024 Basophils (Bld) [#/Vol] 0.04 10*3/uL Normal <0.11 [facility] Comment on above: Order Comment: Speci men Type: BLOOD SPECIMENOrdering Facility: [facility] Address: [address] [place] [address] Performed By: #### 5 7021-8 ####[facility] LABORATORYCLIA [id number] [address] Basophils/100 WBC (Bld) 0.7 % Normal [facility] Comment on above: Order Comment: Speci men Type: BLOOD SPECIMENOrdering Facility: [facility] Address: [address] [place] [address] Performed By: #### 5 7021-8 ####[facility] LABORATORYCLIA [id number] [address] Differential cell count method Nom (Bld) Auto Normal [facility] Comment on above: Order Comment: Speci men Type: BLOOD SPECIMENOrdering Facility: [facility] Address: [address] [place] [address] Performed By: #### 5 7021-8 ####[facility] LABORATORYCLIA [id number] [address] [place] Eosinophils (Bld) [#/Vol] 0.18 10*3/uL Normal <0.46 [facility] Comment on above: Order Comment: Speci men Type: BLOOD SPECIMENOrdering Facility: [facility] Address: [address] [place] [address] Performed By: #### 5 7021-8 ####[facility] LABORATORYCLIA [id number] [address] Eosinophils/100 WBC (Bld) 3.3 % Normal [facility] Comment on above: Order Comment: Speci men Type: BLOOD SPECIMENOrdering Facility: [facility] Address: [address] [place] [address] Performed By: #### 5 7021-8 ####[facility] LABORATORYCLIA [id number] [address] [place] Erythrocyte distribution width (RBC) [Ratio] 14.8 % Normal 11.5-15.0 [facility] Comment on above: Order Comment: Speci men Type: BLOOD SPECIMENOrdering Facility: [facility] Address: [address] [place] [address] Performed By: #### 5 7021-8 ####[facility] LABORATORYCLIA [id number] [address] [place] Hematocrit (Bld) [Volume fraction] 40.7 % Normal 39.0-51.0 [facility] Comment on above: Order Comment: Speci men Type: BLOOD SPECIMENOrdering Facility: [facility] Address: [address] [place] [address] Performed By: #### 5 7021-8 ####[facility] LABORATORYCLIA [id number] [place] [address] [place] Hemoglobin (Bld) [Mass/Vol] 13.0 g/dL Normal 13.0-17.0 [facility] Comment on above: Order Comment: Speci men Type: BLOOD SPECIMENOrdering Facility: [facility] Address: [address] [place] [address] Performed By: #### 5 7021-8 ####[facility] LABORATORYCLIA [id number] [address] [place] Immature granulocytes (Bld) [#/Vol] 10*3/uL Normal <0.10 [facility] Comment on above: Order Comment: Speci men Type: BLOOD SPECIMENOrdering Facility: [facility] Address: [address] [place] [address] Performed By: #### 5 7021-8 ####[facility] LABORATORYCLIA [id number] [address] [place] Immature granulocytes/100 WBC (Bld) 0.4 % Normal [facility] Comment on above: Order Comment: Speci men Type: BLOOD SPECIMENOrdering Facility: [facility] Address: [address] [place] [address] Performed By: #### 5 7021-8 ####[facility] LABORATORYCLIA [id number] [place] [address] [place] Lymphocytes (Bld) [#/Vol] 1.91 10*3/uL Normal 1.00-4.00 [facility] Comment on above: Order Comment: Speci men Type: BLOOD SPECIMENOrdering Facility: [facility] Address: [address] [place], [place] [address] Performed By: #### 5 7021-8 ####[facility] LABORATORYCLIA [id number] [address] Lymphocytes/100 WBC (Bld) 34.8 % Normal [facility] Comment on above: Order Comment: Speci men Type: BLOOD SPECIMENOrdering Facility: [facility] Address: [address] [place] [address] Performed By: #### 5 7021-8 ####[facility] LABORATORYCLIA [id number] [address] MCH (RBC) [Entitic mass] 29.4 pg Normal 26.0-34.0 [facility] Comment on above: Order Comment: Speci men Type: BLOOD SPECIMENOrdering Facility: [facility] Address: [address] [place] [address] Performed By: #### 5 7021-8 ####[facility] LABORATORYCLIA [id number] [address] MCHC (RBC) [Mass/Vol] 31.9 g/dL Normal 30.5-36.0 [facility] Comment on above: Order Comment: Speci men Type: BLOOD SPECIMENOrdering Facility: [facility] Address: [address] [place] [address] Performed By: #### 5 7021-8 ####[facility] LABORATORYCLIA [id number] [address] MCV (RBC) [Entitic vol] 92.1 fL Normal 80.0-100.0 [facility] Comment on above: Order Comment: Speci men Type: BLOOD SPECIMENOrdering Facility: [facility] Address: [address] [place] [address] Performed By: #### 5 7021-8 ####[facility] LABORATORYCLIA [id number] [address] Monocytes (Bld) [#/Vol] 0.44 10*3/uL Normal <0.87 [facility] Comment on above: Order Comment: Speci men Type: BLOOD SPECIMENOrdering Facility: [facility] Address: [address] [place] [address] Performed By: #### 5 7021-8 ####[facility] LABORATORYCLIA [id number] [address] [place] Monocytes/100 WBC (Bld) 8.0 % Normal [facility] Comment on above: Order Comment: Speci men Type: BLOOD SPECIMENOrdering Facility: [facility] Address: [address] [place] [address] Performed By: #### 5 7021-8 ####[facility]ORATORYCLIA [id number] [address] [place] Neutrophils (Bld) [#/Vol] 2.90 10*3/uL Normal 1.45-7.50 [facility] Comment on above: Order Comment: Speci men Type: BLOOD SPECIMENOrdering Facility: [facility] Address: [address] [place] [address] Performed By: #### 5 7021-8 ####[facility]ORATORYCLIA [id number] [address] [place] Neutrophils/100 WBC (Bld) 52.8 % Normal [facility] Comment on above: Order Comment: Speci men Type: BLOOD SPECIMENOrdering Facility: [facility] Address: [address] [place] [address] Performed By: #### 5 7021-8 ####[facility]ATORYCLIA [id number] [address] [place] Nucleated RBC (Bld) [#/Vol] 10*3/uL Normal <0.01 [facility] Comment on above: Order Comment: Speci men Type: BLOOD SPECIMENOrdering Facility: [facility] Address: [address] [place] [address] Performed By: #### 5 7021-8 ####[facility]ORATORYCLIA [id number] [place] [address] [place] Nucleated RBC/100 WBC (Bld) [Ratio] 0.0 /100 WBC Normal [facility] Comment on above: Order Comment: Speci men Type: BLOOD SPECIMENOrdering Facility: [facility] Address: [address] [place] [address] Performed By: #### 5 7021-8 ####[facility] LABORATORYCLIA [id number] [place] [address] [place] Platelet mean volume (Bld) [Entitic vol] 9.3 fL Normal 9.0-12.7 [facility] Comment on above: Order Comment: Speci men Type: BLOOD SPECIMENOrdering Facility: [facility] Address: [address] [place] [address] Performed By: #### 5 7021-8 ####[facility] LABORATORYCLIA [id number] [place] [address] [place] Platelets (Bld) [#/Vol] 287 10*3/uL Normal 150-400 [facility] Comment on above: Order Comment: Speci men Type: BLOOD SPECIMENOrdering Facility: [facility] Address: [address] [place] [address] Performed By: #### 5 7021-8 ####[facility] LABORATORYCLIA [id number] [place] [address] [place] RBC (Bld) [#/Vol] 4.42 10*6/uL Normal 4.20-6.00 [facility] Comment on above: Order Comment: Speci men Type: BLOOD SPECIMENOrdering Facility: [facility] Address: [address] [place] [address] Performed By: #### 5 7021-8 ####[facility] LABORATORYCLIA [id number] [place] [address] [place] WBC (Bld) [#/Vol] 5.49 10*3/uL Normal 3.70-11.00 [facility] Comment on above: Order Comment: Speci men Type: BLOOD SPECIMENOrdering Facility: [facility] Address: [address] [place] [address] Performed By: #### 5 7021-8 ####[facility] LABORATORYCLIA [id number] [place] [address] [place] CNPNon 06-22-2024 CNPN Normal [facility] Comprehensive metabolic 2000 panelon 06-22-2024 Albumin [Mass/Vol] 3.8 g/dL Low 3.9-4.9 [facility] Comment on above: Order Comment: Speci men Type: BLOOD SPECIMENOrdering Facility: [facility] Address: [address] [place] [address] Performed By: #### 2 4323-8, PSAS1, 51150-8, 6-3 ####[facility] LABORATORYCLIA [id number] [address] [place] ALP [Catalytic activity/Vol] 133 U/L High 38-113 [facility] Comment on above: Order Comment: Speci men Type: BLOOD SPECIMENOrdering Facility: [facility] Address: [address] [place] [address] Performed By: #### 2 4323-8, PSAS1, 90249-6, 3016-3 ####[facility] LABORATORYCLIA [id number] [place] [address] [place] ALT With P-5'-P [Catalytic activity/Vol] 41 U/L Normal 10-54 [facility] Comment on above: Order Comment: Speci men Type: BLOOD SPECIMENOrdering Facility: [facility] Address: [address] [place] [address] Performed By: #### 2 4323-8, PSAS1, 68594-3, 3016-3 ####[facility] LABORATORYCLIA [id number] [place] [address] [place] Anion gap [Moles/Vol] 13 mmol/L Normal 8-15 [facility] Comment on above: Order Comment: Speci men Type: BLOOD SPECIMENOrdering Facility: [facility] Address: [address] [place] [address] Performed By: #### 2 4323-8, PSAS1, 86385-9, 3016-3 ####[facility] LABORATORYCLIA [id number] [place] [address] [place] AST With P-5'-P [Catalytic activity/Vol] 27 U/L Normal 14-40 [facility] Comment on above: Order Comment: Speci men Type: BLOOD SPECIMENOrdering Facility: [facility] Address: [address] [place] [address] Performed By: #### 2 4323-8, PSAS1, 25886-5, 6-3 ####[facility] LABORATORYCLIA [id number] [place] [address] [place] Bilirubin [Mass/Vol] 0.3 mg/dL Normal 0.2-1.3 [facility] Comment on above: Order Comment: Speci men Type: BLOOD SPECIMENOrdering Facility: [facility] Address: [address] [place] [address] Performed By: #### 2 4323-8, PSAS1, 20927-8, 3015-3 ####[facility] LABORATORYCLIA [id number] [place] [address] [place] Calcium [Mass/Vol] 8.4 mg/dL Low 8.5-10.2 [facility] Comment on above: Order Comment: Speci men Type: BLOOD SPECIMENOrdering Facility: [facility] Address: [address] [place] [address] Performed By: #### 2 4323-8, PSAS1, 79292-8, 3015-3 ####[facility] LABORATORYCLIA [id number] [place] [address] [place] Chloride [Moles/Vol] 107 mmol/L Normal 98-107 [facility] Comment on above: Order Comment: Speci men Type: BLOOD SPECIMENOrdering Facility: [facility] Address: [address] [place] [address] Performed By: #### 2 4323-8, PSAS1, 02711-9, 6-3 ####[facility] LABORATORYCLIA [id number] [place] [address] [place] CO2 [Moles/Vol] 21 mmol/L Low 22-30 [facility] Comment on above: Order Comment: Speci men Type: BLOOD SPECIMENOrdering Facility: [facility] Address: [address] [place] [address] Performed By: #### 2 4323-8, PSAS1, 43985-4, 6-3 ####[facility] LABORATORYCLIA [id number] [place] [address] [place] Creatinine [Mass/Vol] 1.12 mg/dL Normal 0.73-1.22 [facility] Comment on above: Order Comment: Speci men Type: BLOOD SPECIMENOrdering Facility: [facility] Address: [address] [place] [address] Performed By: #### 2 4323-8, PSAS1, 45587-8, 3 ####[facility] LABORATORYCLIA [id number] [address] STATES OF [facility] Creatinine and Glomerular filtration rate.predicted panel (S/P/Bld) 82 mL/min/1.73m??? Normal >=60 [facility] Comment on above: Order Comment: Speci men Type: BLOOD SPECIMENOrdering Facility: [facility] Address: [address] [place] [address] Result Comment: Guerita mated Glomerular Filtration Rate (eGFR) is calculated using the 2020 CKD-EPI creatinine equation. This equation utilizes serum creatinine, sex, and age as parameters. The creatinine assay has traceable calibration to isotope dilution-mass spectrometry. Refer to KDIGO guidelines for clinical interpretation. In patients with unstable renal function, e.g. those with acute kidney injury, the eGFR may not accurately reflect actual GFR. Performed By: #### 2 4323-8, PSAS1, 09728-2, 3015-3 ####[facility] LABORATORYCLIA [id number] [place] [address] [place] Glucose [Mass/Vol] 93 mg/dL Normal 74-99 [facility] Comment on above: Order Comment: Speci men Type: BLOOD SPECIMENOrdering Facility: [facility] Address: [address] [place] [address] Result Comment: The [place] Diabetes Association (ADA) provides guidance for cutoff values for fasting glucose and random glucose. The ADA defines fasting as no caloric intake for at least 8 hours. Fasting plasma glucose results between 100 to 125 mg/dL indicate increased risk for diabetes (prediabetes).Fasting plasma glucose results greater than or equal to 126 mg/dL meet the criteria for diagnosis of diabetes. In the absence of unequivocal hyperglycemia, results should be confirmed by repeat testing. In a patient with classic symptoms of hyperglycemia or hyperglycemic crisis, random plasma glucose results greater than or equal to 200 mg/dL meet the criteria for diagnosis of diabetes.Reference: Standards of Medical Care in Diabetes 2016, [place] Diabetes Association. Diabetes Care. 2016.39(Suppl 1). Performed By: #### 2 4323-8, PSAS1, 40025-2, 6-3 ####[facility] LABORATORYCLIA [id number] [place] [address] [place] Potassium [Moles/Vol] 4.7 mmol/L Normal 3.7-5.1 [facility] Comment on above: Order Comment: Speci men Type: BLOOD SPECIMENOrdering Facility: [facility] Address: [address] [place] [address] Performed By: #### 2 4323-8, PSAS1, 49029-2, 6-3 ####[facility]ITALCLIA [id number] [place] [address] [place] Protein [Mass/Vol] 6.5 g/dL Normal 6.3-8.0 [facility] Comment on above: Order Comment: Speci men Type: BLOOD SPECIMENOrdering Facility: [facility] Address: [address] [place] [address] Performed By: #### 2 4323-8, PSAS1, 33063-2, 6-3 ####[facility] LABORATORYCLIA [id number] [place] [address] [place] Sodium [Moles/Vol] 141 mmol/L Normal 136-144 [facility] Comment on above: Order Comment: Speci men Type: BLOOD SPECIMENOrdering Facility: [facility] Address: [address] [place] [address] Performed By: #### 2 4323-8, PSAS1, 34265-4, 3016-3 ####[facility] LABORATORYCLIA [id number] [place] [address] [place] Urea nitrogen [Mass/Vol] 9 mg/dL Normal 9-24 [facility] Comment on above: Order Comment: Speci men Type: BLOOD SPECIMENOrdering Facility: [facility] Address: [address] [place] [address] Performed By: #### 2 4323-8, PSAS1, 61959-1, 3016-3 ####[facility] LABORATORYCLIA [id number] [place] [address] [place] [facility] HbA1c (Bld)on 06-22-2024 Average glucose Estimated from glycated hemoglobin (Bld) [Mass/Vol] 117 mg/dL Normal [facility] Comment on above: Order Comment: Speci men Type: BLOOD SPECIMENOrdering Facility: [facility] Address: [address] [place] [address] Result Comment: eAG: (Estimated average glucose) is a calculated value from HgbA1c and is patient service representative of the average blood glucose level in the last 2-3 month period. Performed By: #### 5 5454-3 ####[facility] LABCLIA [id number] [address] [place] HbA1c (Bld) [Mass fraction] 5.7 % High 4.3-5.6 [facility] Comment on above: Order Comment: Speci men Type: BLOOD SPECIMENOrdering Facility: [facility] Address: [address] [place] [address] Result Comment: [place] Diabetes Association guidelines indicate that patients with HgbA1c in the range 5.7-6.4% are at increased risk for development of diabetes, and intervention by lifestyle modification may be beneficial. HgbA1c greater or equal to 6.5% is considered diagnostic of diabetes. Performed By: #### 5 5454-3 ####[facility] LABCLIA [id number] [place] [id number] [place] Lipid 1996 panelon 4 Cholesterol [Mass/Vol] 158 mg/dL Normal <200 [facility] Comment on above: Order Comment: Speci men Type: BLOOD SPECIMENOrdering Facility: [facility] Address: [address] [place] [address] Result Comment: <200 mg/dL, Desirable 200-239 mg/dL, Borderline high>239 mg/dL, High Performed By: #### 2 4323-8, PSAS1, 59924-4, 3016-3 ####[facility]ATORYCLIA [id number] [place], [place] [id number] [place] [address] Cholesterol in HDL [Mass/Vol] 38 mg/dL Low >39 [facility] Comment on above: Order Comment: Speci men Type: BLOOD SPECIMENOrdering Facility: [facility] Address: [address] [place] [address] Result Comment: 40-5 9 mg/dL, Acceptable>59 mg/dL, High: Negative risk factor for coronary heart disease<40 mg/dL, Low: Positive risk factor for coronary heart disease Performed By: #### 2 4323-8, PSAS1, 95707-1, 6-3 ####[facility]ORYCLIA [id number] [place], [place] [id number] [place] [address] Cholesterol in LDL [Mass/Vol] 101 mg/dL High <100 [facility] Comment on above: Order Comment: Speci men Type: BLOOD SPECIMENOrdering Facility: [facility] Address: [address] [place] [address] Result Comment: <100 mg/dL, Optimal 100-129 mg/dL, Near optimal/above optimal 130-159 mg/dL, Borderline high 160-189 mg/dL, High>189 mg/dL, Very highSecondary prevention optimal LDL Cholesterol levels are recommended to be < 70 mg/dL Performed By: #### 2 4323-8, PSAS1, 70932-3, 3016-3 ####[facility]ATORYCLIA [id number] [place], [place] [address] [place] [address] [place] Cholesterol in LDL/Cholesterol in HDL [Mass ratio] 2.66 {ratio} High <2.54 [facility] Comment on above: Order Comment: Speci men Type: BLOOD SPECIMENOrdering Facility: [facility] Address: [address] [place] [address] Result Comment: Garrett johnson:1. National Cholesterol Education Program ATP III Guideline At-A-Glance Quick Desk Reference: National Heart, Lung, and Blood [place]. National Institutes of Health. 2001: NIH Publication No. 01-3305.2. An International Atherosclerosis Society position paper: global recommendations for the management of dyslipidemia: executive summary, Atherosclerosis. 2014: 232(2):410-413. Performed By: #### 2 4323-8, PSAS1, 35236-5, 3016-3 ####[facility] LABORATORYCLIA [id number] [address] STATES OF [facility] Cholesterol in VLDL [Mass/Vol] 19 mg/dL Normal <30 [facility] Comment on above: Order Comment: Speci men Type: BLOOD SPECIMENOrdering Facility: [facility] Address: [address] [place] [address] Performed By: #### 2 4323-8, PSAS1, 02870-6, 6-3 ####[facility] LABORATORYCLIA [id number] [address] [place] Cholesterol non HDL [Mass/Vol] 120 mg/dL Normal <130 [facility] Comment on above: Order Comment: Speci men Type: BLOOD SPECIMENOrdering Facility: [facility] Address: [address] [place] [address] Result Comment: <130 mg/dL, Optimal 130-159 mg/dL, Near optimal/above optimal 160-189 mg/dL, Borderline high 190-219 mg/dL, High>219 mg/dL, Very highSecondary prevention optimal non HDL Cholesterol levels are recommended to be <100 mg/dL Performed By: #### 2 4323-8, PSAS1, 12300-4, 3016-3 ####[facility] LABORATORYCLIA [id number] [address] [place] Cholesterol.total/ Cholesterol in HDL [Mass ratio] 4.16 {ratio} Normal <5.10 [facility] Comment on above: Order Comment: Speci men Type: BLOOD SPECIMENOrdering Facility: [facility] Address: [facility] [place] [address] Performed By: #### 2 4323-8, PSAS1, 19590-2, 3 ####[facility] LABORATORYCLIA [id number] [address] STATES OF [facility] FASTING TIME 12 hrs Normal [facility] Comment on above: Order Comment: Speci men Type: BLOOD SPECIMENOrdering Facility: [facility] Address: [address] [place] [address] Performed By: #### 2 4323-8, PSAS1, 72261-8, 3015-12 ####[facility]ITALCLIA [id number] [address] [place] Triglyceride [Mass/Vol] 94 mg/dL Normal <150 [facility] Comment on above: Order Comment: Speci men Type: BLOOD SPECIMENOrdering Facility: [facility] Address: [address] [place] [address] Result Comment: <150 mg/dL, Normal 150-199 mg/dL, Borderline high 200-499 mg/dL, High>499 mg/dL, Very high Performed By: #### 2 3-8, PSAS1, 99260-6, 3 ####[facility] LABORATORYCLIA [id number] [address] OF [facility] PSA/PROSTATE SPECIFIC ANTIGE N SCREENINGon 06-22-2024 Prostate specific Ag [Mass/Vol] 0.20 ng/mL Normal <2.60 [facility] Comment on above: Order Comment: Speci men Type: BLOOD SPECIMENOrdering Facility: [facility] Address: [address] [place] [address] Result Comment: [facility] PSA test methodology used is the Electrochemiluminescence Immunoassay by [employer]. Total PSA values by differing methodologies cannot be interchanged. Performed By: #### 2 4323-8, PSAS1, 83070-2, 3015-3 ####[facility] LABORATORYCLIA [id number] [place] [address] [place] TSH SerPl-aCncon 06-22-2024 TSH Qn 1.860 m[IU]/L Normal 0.270-4.200 [facility] Comment on above: Order Comment: Speci men Type: BLOOD SPECIMENOrdering Facility: [facility] Address: [address] [place] [address] Performed By: #### 2 4323-8, PSAS1, 51577-3, 3016-3 ####[facility] LABORATORYCLIA [id number] [place] [address] [place] Vit B12 SerPl-mCncon 024 Cobalamin (Vitamin B12) [Mass/Vol] 235 pg/mL Normal 232-1245 [facility] Comment on above: Order Comment: Speci men Type: BLOOD SPECIMENOrdering Facility: [facility] Address: [address] [place] [address] Performed By: #### 2 132-9 ####[facility] LABORATORYCLIA [id number] [address] [place] XR LUMBAR 4V AP/LAT/ FLEX/EX Ton 06-22-2024 XR LUMBAR 4V AP/LAT/ FLEX/EXT Normal [facility] CNOVon 06-21-2024 CNOV Normal [facility] CNOVon 06-09-2024 CNOV Normal [facility] CNOVon 05-31-2024 CNOV Normal [facility] CNOVon 05-23-2024 CNOV Office Visit (STFLE) SAM RAI ([id number]) 1975 M Date Time Provider Department 05/23/24 8:40 AM BENNIE BALLESTEROS During your visit today, we recorded the following information about you: Temperature Pulse Respiration Blood pressure 97.7 degrees 75/minute 16/minute 128/90 Weight 115 kg Bennie Ballesteros PA-C 05/23/2024 9:27 AM Signed Sam Rai is an 48 year old male presenting with URI (Sinus drainage, sinus pressure, headache, rash on right leg and wrist and left knee and hands- 1 month for sinus issues, 1 month for rash but getting worse and more irritating) HPI: The patient states that they have had sinus pressure and congestion for the last month. The patient does admit to facial pressure. Admits to cough which is productive of sputum. The patient also reports nasal congestion and sore throat. Denies pain with swallowing/difficulty swallowing. Patient has had yellow rhinorrhea. Mild headache. Denies fevers chills. No dizziness, visual disturbances and or neck stiffness. No chest pain or dyspnea. No vomiting or diarrhea. Patient also complains of a rash noted to his right wrist right lower leg as well as to his left knee that started a month ago. Denies any new food drug environmental allergens. Denies any difficulty swallowing difficulty breathing. Patient states that the rash is pruritic in nature. Patient states he has been using falb-tgd-axozgml Benadryl cream with little improvement. The patient presents for evaluation. PAST MEDICAL HISTORY Diagnosis Date Acute medial meniscus tear of right knee Anxiety Asthma Contact dermatitis Recurrence not specified. COVID-19 long hauler Depression Diverticulitis GERD (gastroesophageal reflux disease) Insufficiency fracture of tibia Migraines Obesity, morbid, BMI 40.0-49.9 (HCC) Primary osteoarthritis of right knee Restless legs syndrome (RLS) Sinus infection ACTIVE PROBLEM LIST Primary Osteoarthritis of Right Knee Pain in Right Knee Contact Dermatitis Mass On Back Restless Leg Syndrome Migraine With Aura and Without Status Migrainosus, Not Intractable Eczema Obesity, Class III, BMI >= 40 E66.01 Posterior Tibial Tendinitis of Left Leg Sinus Tarsi Syndrome of Left Ankle Obesity, Morbid, Bmi 40.0-49.9 (Hcc) Diverticulosis Chronic Nonintractable Headache Closed Fracture of Bone of Right Foot Intractable Migraine Without Aura and Without Status Migrainosus Seasonal Allergic Rhinitis Due to Pollen History of Shingles Bronchitis, Mucopurulent Recurrent (Hcc) S/P Left Knee Surgery Lis (Obstructive Sleep Apnea) 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 Hair and Dander Allergic Rhinitis Allergic Rhinitis Due to Mold Allergic Rhinitis Due to Dust Mite Dyspnea and Respiratory Abnormalities Pleuritic Chest Pain Moderate Asthma Anxiety and Depression Corneal Subepithelial Haze of Left Eye Refractive Error History of Strabismus Surgery Vitreous Syneresis of Both Eyes Left Flank Pain Malodorous Urine Right Kidney Stone Sinus Infection Left Lower Quadrant Abdominal Pain Nausea and Vomiting Abdominal Pain Acute Left-Sided Low Back Pain Without Sciatica Current Outpatient Medications Medication Sig Dispense Refill albuterol HFA (PROVENTIL HFA, VENTOLIN HFA) 90 mcg/actuation inhaler Inhale 2 Puffs as instructed every 4 hours as needed for wheezing/shortness of breath. 8 g 0 traZODone (DESYREL) 100 mg tablet Take 2 tablets by mouth daily at bedtime. 180 tablet 0 albuterol HFA (PROAIR HFA) 90 mcg/actuation inhaler Inhale 2 Puffs as instructed every 4 hours as needed. 1 Each 3 gabapentin (NEURONTIN) 300 mg capsule Take 4 capsules by mouth as directed for 180 days. 360 capsule 1 amoxicillin-clavulanate potassium (AUGMENTIN) 875-125 mg per tablet Take 1 tablet by mouth two times a day for 7 days. 14 tablet 0 triamcinolone acetonide (KENALOG) 0.5 % cream Apply as directed to affected area twice daily. 30 g 0 benzonatate (TESSALON PERLES) 100 mg capsule Take 1 capsule by mouth three times a day as needed for cough. (Patient not taking: Reported on 05/23/2024) 21 capsule 0 Gcdxunfqrshgwov-Uvyfpafaf-D M (BROMFED DM) 2-30-10 mg/5 mL syrup Take 5 mL by mouth four times a day as needed. (Patient not taking: Reported on 05/23/2024) 118 mL 0 predniSONE (DELTASONE) 10 mg tablet Day #1 - 6 tablets PO then Day #2 - 5 tablets PO then Day #3 - 4 tablets PO then Day #4 - 3 tablets PO then Day #5 - 2 tablets PO then Day #6 - 1 tablet PO (Patient not taking: Reported on 05/23/2024) 21 tablet 0 SUMAtriptan (IMITREX) 100 mg tablet Take 1 tablet by mouth as needed when migraine headache starts. May repeat in 2 hours if headache continues or returns. Do not exceed 4 tablets in 24 hours. (Patient not taking: Reported on 05/23/2024) 9 tablet 2 FLUoxetine (PROZAC) 10 mg capsule Take 2 capsules by (more content not included)... Normal [facility] US CAROTID BILATon 2 [facility] CNOVon 08-15-2021 CNOV Office Visit (NESLFV ) SAM RAI ([id number]) 1975 M Date Time Provider Department 08/15/21 3:00 PM LIBORIO NEWTON During your visit today, we recorded the following information about you: Temperature Pulse Blood pressure Weight 97.1 degrees 76/minute 124/73 131.1 kg Height 1.702 m Liborio Newton MD 08/16/2021 7:00 AM Signed [facility] New Patient Consultation PATIENT NAME: Sam Rai DATE OF SERVICE: August 15, 2021 CONSULTING PROVIDER: Lisa Levine [address] [facility] [place] [address] Subjective CHIEF CONCERN: Feeling tired HISTORY OF PRESENT ILLNESS: Sam Rai is a 45 year old man with obesity, anxiety and depression, migraines, and obstructive sleep apnea on CPAP, and COVID-19 infection in November 2020 with recurrent subsequent respiratory infections this year, who is here for symptoms of fatigue and sleepiness., The consultation was requested by Lisa Levien, DONALD PIG 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 for evaluation of restless legs syndrome obstructive sleep apnea on CPAP, hypersomnia, and fatigue. My final assessment and recommendations will be communicated back to the requesting provider through the electronic medical record or by fax/US mail. He was referred from the post-COVID clinic. They were trying to piece together what can be done to feel back to normal. He is constantly tired and fatigued. His first one was in November and then May. He is just getting over pneumonia now. In November, he had a viral infection and then bacterial. In May, they were not sure. Recently, he was told he had a viral pneumonia. He had antivirals and antibiotics. He was told his immune system was low. He is not on CPAP. He has a machine, but they told him to stop using it. He was not breathing well at all. It felt like he was suffocating when he had COVID. They wanted to see how things go. He still does not breathe well. He has not used it since being told to stop. General sleep: ? Bedroom partner: sleeps separately ? Bedtime: 9-10 PM (9-10 PM weekends) ? Wake time: 7 AM (7 AM weekends); changing since being off work ? Sleep-onset latency: 30+ minutes or more; he tosses and turns ? Medications for sleep: Yes, trazodone, just increased to 2 x 50 mg; has been on it for years ? Awakenings from sleep: tossing and turning ? Nocturia: no ? Position: all positions ? Excessive daytime sleepiness: Yes ? Daytime fatigue/tiredness: Yes ? Naps: Yes, 2-3 times per week; 30-120 minutes ? Caffeine or stimulant use: No, rarely ? Drowsiness when driving: No Symptoms of Restless Legs Syndrome: He has restless legs syndrome and takes Neurontin. He had knee surgery on his left leg. He has gone back 3-4 times and complained that it is not right. It still hurts. He said there is nothing wrong. From the knee down, it can get cold. His ankle will hurt. When he has restless legs, it is like little ants moving. It happens more at nighttime. It has gone on forever. It is worse in the left leg. He has the urge to move the legs, more in the left. It is happening more at night, but sometimes during the day. He can do things during the day. He takes Neurontin 300-400 mg every night before bed. He starts with 3 and goes up to 4. It has been doing very well until recently. He has never been on iron supplements. He does eat red meat. He scheduled next week for labwork. Sleep-related Behaviors: ? Problems with nightmares: Yes, he takes 1 mg prazosin, but they have not increased it. He has nightmares a few times per week. He is going to [employer]. The therapist he had originally put him on it. DME: unknown Device: [employer]? Mask: full face mask PATIENT-ENTERED QUESTIONNAIRE SLEEP SCORES Sleep Questions 08/15/2021 Reason for visit: Difficulty falling or staying asleep or poor sleep quality, Excessive daytime sleepiness, Restless Legs Syndrome Average hours slept in 24 hours: 10 Accidents or near accidents due to drowsy drivin [place] Sleepiness Scale 10/27/2020 08/15/2021 Score 5 (No daytime sleepiness) 13 (present daytime sleepiness) PROMIS CAT Sleep Disturbance 06/20/2021 08/15/2021 PROMIS Sleep Disturbance T-Score 65 (moderate) 58 (mild) Insomnia Severity Index 08/15/2021 Score 12 Restless Leg Syndrome 08/15/2021 Score 24 PHQ-9 06/20/2021 08/15/2021 Score 11 8 PROMIS Global Health - (T-Scores - the mean of general population = 50. Five points is a clinically meaningful difference.) 06/24/2020 01/13/2021 06/22/2021 Physical T-Score 39.8 39.8 34.9 Mental T-Score 36.3 36.3 33.8 MEDICAL HISTORY REVIEWED: PAST MEDICAL HISTORY Diagnosis Date - Acute medial meniscus tear of right knee - Anxiety - Asthma - Contact dermatitis Recurrence not specified. - COVID-19 long hauler - Depression - Diverticulit (more content not included)... Normal [facility] XR KNEE 2V AP/LAT LTon 01-06 XR KNEE 2V AP/LAT LT Final Report DATE OF EXAM: Jan 06 2021 10:25AM [id number] - XR KNEE 2V AP/LAT LT / PROCEDURE REASON: Bone pain, knee Physician Interpretation EXAM TITLE: X-RAY LEFT KNEE DATE: 01/06/2021 CLINICAL INDICATION/HISTORY: Knee pain COMPARISON: X-ray 04/05/2020 TECHNIQUE: AP and lateral views of the left knee. FINDINGS: No joint effusion. No fracture or dislocation. No lytic or blastic osseous lesions. There is hyperdense material within the lateral aspect of the tibial plateau likely representing flow both biomaterial. Soft tissues are unremarkable. IMPRESSION: No fracture or dislocation. Stable postoperative changes in the lateral tibial plateau. Mess Cook: SONIA Transcribe Date/Time: Jan 06 2021 10:57A Dictated by : RUTHIE WREN MD This examination was interpreted and the report reviewed and electronically signed by: RUTHIE WREN MD on Jan 06 2021 11:00AM EST Normal [facility] XR CHEST 2V FRONTAL/LATon XR CHEST 2V FRONTAL/LAT Final Report DATE OF EXAM: Dec 07 2020 9:13AM [id number] - XR CHEST 2V FRONTAL/LAT / PROCEDURE REASON: multiple diagnoses Physician Interpretation EXAMINATION: CHEST RADIOGRAPH (2 VIEW FRONTAL & LATERAL) CLINICAL HISTORY: Post-COVID syndrome Cough MQ: XC2_6 EXAM DATE/TIME: 12/07/2020 9:13 AM COMPARISON: 07/13/2020 RESULT: Lines, tubes, and devices: None. Lungs and pleura: Reticular opacities in the lower lungs bilaterally may represent bronchial wall thickening. No pneumothorax. No pleural effusion. No focal infiltrate. Cardiomediastinal silhouette: Stable cardiomediastinal silhouette. Bones and soft tissues: Degenerative changes are present within the thoracic spine. IMPRESSION: Mild bronchial wall thickening and bilateral lower lungs may represent persistent or sequela of prior small airways/viral infection. No focal infiltrate identified. Mess Cook: PSC[facility] Transcribe Date/Time: Dec 08 2020 9:22A Dictated by : PAPA WATT MD This examination was interpreted and the report reviewed and electronically signed by: PAPA WATT MD on Dec 08 2020 9:27AM EST Normal [facility] XR CHEST 1V FRONTALon 2020 XR CHEST 1V FRONTAL Final Report DATE OF EXAM: Nov 15 2020 2:33PM [id number] - XR CHEST 1V FRONTAL / PROCEDURE REASON: Chest pain or SOB, pleurisy or effusion suspected Physician Interpretation EXAMINATION: CHEST RADIOGRAPH (SINGLE VIEW AP OR PA) CLINICAL HISTORY: Acute respiratory illness. Short of breath. MQ: XC1_5 Comparison: 11/11/2020 RESULT: Lines, tubes, and devices: None. Lungs and pleura: Patchy infiltrative changes are again noted bilaterally. These have worsened since the previous study of 4 days ago, now extending into the mid and upper lung zones. Findings are concerning for viral pneumonia. No pleural effusion or pneumothorax. Cardiomediastinal silhouette: Normal cardiomediastinal silhouette. Other: Incidental note is made of severely hypoplastic clavicles. IMPRESSION: Worsening bilateral infiltrate. Mess Cook: [facility] Transcribe Date/Time: Nov 15 2020 2:40P Dictated by : MALU PAINTING MD This examination was interpreted and the report reviewed and electronically signed by: MALU PAINTING MD on Nov 15 2020 2:43PM EST Normal [facility] XR CHEST 1V FRONTALon 2020 XR CHEST 1V FRONTAL Final Report DATE OF EXAM: Nov 11 2020 7:10PM [id number] - XR CHEST 1V FRONTAL / PROCEDURE REASON: Shortness of breath Physician Interpretation EXAMINATION: CHEST RADIOGRAPH (SINGLE VIEW AP OR PA) CLINICAL HISTORY: Shortness of breath MQ: XC1_5 Comparison: 11/08/2020 RESULT: Lines, tubes, and devices: None. Lungs and pleura: There are patchy bibasilar interstitial infiltrates, worse since 11/08/2020. Cardiomediastinal silhouette: Stable cardiomediastinal silhouette. Other: No bony abnormalities. IMPRESSION: PATCHY BIBASILAR INTERSTITIAL INFILTRATES, WORSE SINCE 11/08/2020. Mess Cook: [facility] Transcribe Date/Time: Nov 11 2020 7:24P Dictated by : ROGER MUSTAFA MD This examination was interpreted and the report reviewed and electronically signed by: ROGER MUSTAFA MD on Nov 11 2020 7:25PM EST Normal [facility] XR CHEST 1V FRONTALon 2020 XR CHEST 1V FRONTAL Final Report DATE OF EXAM: Nov 08 2020 12:24PM [id number] - XR CHEST 1V FRONTAL / PROCEDURE REASON: Shortness of breath Physician Interpretation EXAMINATION: CHEST RADIOGRAPH (SINGLE VIEW AP OR PA) CLINICAL HISTORY: Shortness of breath Covid positive. MQ: XC1_5 Comparison: 07/13/2020. RESULT: Lines, tubes, and devices: None. Lungs and pleura: Patchy bibasilar pulmonary opacities. No evidence of significant pleural effusion. No evidence of pneumothorax. Cardiomediastinal silhouette: Unchanged. Other: Hypoplastic bilaterally clavicles. No radiographic evidence of acute osseous abnormalities. IMPRESSION: Patchy pulmonary opacities at lung bases are favored to be atelectasis. No evidence of sizable consolidation. No significant pleural effusion. Mess Cook: PSCB Transcribe Date/Time: Nov 08 2020 12:26P Dictated by : JORDI SHI MD This examination was interpreted and the report reviewed and electronically signed by: JORDI SHI MD on Nov 08 2020 12:30PM [facility] ANES Lissa 07-07-2019 ANES POST HNO ID: [id number] Author: Nilesh Polanco Service: Anesthesiology Author Type: Anesthesiologist Type: Anesthesia PostOp Filed: 07/07/2019 12:25 PM Note Text: POST ANESTHESIA EVALUATION NOTE SERVICE DATE: 07/07/2019 SERVICE TIME: 12:25 PM : 1975 Vitals: 07/07/19 0903 07/07/19 1140 07/07/19 1143 Temp: 36.9 ?C (98.5 ?F) (!) 3.2 ?C (37.7 ?F) 36.5 ?C (97.7 ?F) 07/07/19 0903 07/07/19 1152 BP: 119/66 127/78 07/07/19 0903 07/07/19 1140 07/07/19 1152 Pulse: 73 76 77 07/07/19 0903 07/07/19 1140 07/07/19 1152 Resp: 20 14 18 07/07/19 0903 07/07/19 1140 07/07/19 1152 SpO2: 97% 93% 96% Validated Vital Signs: Yes POST ANES STATUS: No apparent anesthetic complications. The patient is appropriately hydrated with stable respiratory and cardiovascular status. Patient has safe and adequate airway control. The patient has appropriate pain relief and no significant post operative nausea or vomiting. The patient has achieved baseline mental status. Intra-Operative Events: No Significant Anesthesia Events Further assessment by Anesthesia Service: None Other Remarks: SIGNATURE: Nilesh Polanco MD PATIENT NAME: Sam Rai DATE: July 07, 2019 TIME: 12:25 PM PAGER/CONTACT #: [id number] [facility] ANES PREOPon 07-07-2019 ANES PREOP HNO ID: [id number] Author: Nilesh Polanco Service: Anesthesiology Author Type: Anesthesiologist Type: Anesthesia PreOp Filed: 07/07/2019 9:34 AM Note Text: ANESTHESIOLOGY DAY OF SURGERY NOTE SERVICE DATE: 07/07/2019 SERVICE TIME: 9:32 AM : 1975 Procedure(s) (LRB): REPAIR STRABISMUS 2 HORIZONTAL MUSCLES (Right) Surgeon(s): Brett Knowles Estimated body mass index is 44.01 kg/m? as calculated from the following: Height as of this encounter: 170.2 cm (5' 7"). Weight as of this encounter: 127.5 kg (281 lb). Most recent hematocrit and potassium results: Hematocrit 41.4 04/23/2019 Potassium 3.8 04/23/2019 ANES DOS/PREOP NOTE: Vitals: 07/07/19 0903 BP: 119/66 Pulse: 73 Resp: 20 Temp: 36.9 ?C (98.5 ?F) SpO2: 97% Weight: 127.5 kg (281 lb) Height: 170.2 cm (5' 7") ACTIVE PROBLEM LIST Primary Osteoarthritis of Right Knee Pain in Right Knee Acute Frontal Sinusitis Contact Dermatitis Mass On Back Aftercare Following Surgery Restless Leg Syndrome Migraine With Aura and Without Status Migrainosus, Not Intractable Mild Intermittent Asthma Without Complication Eczema Obesity, Class III, BMI >= 40 E66.01 Posterior Tibial Tendinitis of Left Leg Sinus Tarsi Syndrome of Left Ankle Obesity, Morbid, Bmi 40.0-49.9 (Hcc) Diverticulosis Chronic Nonintractable Headache Closed Fracture of Bone of Right Foot Intractable Migraine Without Aura and Without Status Migrainosus PAST MEDICAL HISTORY Diagnosis Date - Acute medial meniscus tear of right knee - Contact dermatitis Recurrence not specified. - Diverticulitis - Obesity, morbid, BMI 40.0-49.9 (HCC) - Primary osteoarthritis of right knee PAST SURGICAL HISTORY Procedure Laterality Date - CHOLECYSTECTOMY HX in 1999 - KNEE SURGERY HX Right scope and tibial transfer - ORTHOPEDICS SURGERY HX Right Right Knee - PAST SURGICAL HISTORY OF 1999 or 2000 Removal Gallbladder - TONSILLECTOMY HX FAMILY HISTORY Problem Relation Age of Onset - Stroke Mother - Lipids Mother - Hypertension Mother - Obesity Mother - Asthma Mother - COPD Mother - Lipids Father - Hypertension Father - Alcohol/Drug Father Social History: Social History Tobacco Use - Smoking status: Never Smoker - Smokeless tobacco: Never Used Substance Use Topics - Alcohol use: Yes Comment: Current alcohol user. Comments: rarely - Drug use: No Comment: No reported history. No current facility-administered medications on file prior to encounter. Current Outpatient Medications on File Prior to Encounter: topiramate (TOPAMAX) 25 mg tablet Take 1 tab QHS x1 week then; 2 tabs QHS x1 week, then 3 tabs QHS and continue traZODone (DESYREL) 100 mg tablet Take 1 tablet by mouth daily at bedtime. FLUoxetine (PROZAC) 10 mg capsule Take 1 capsule by mouth once daily. hydrOXYzine HCl (ATARAX) 25 mg tablet Take 1 tablet by mouth three times daily as needed for Itching/Rash. And anxiety prazosin (MINIPRESS) 1 mg cap Take 1 capsule by mouth daily at bedtime. famotidine (PEPCID) 20 mg tablet Take 1 tablet by mouth once daily. acyclovir (ZOVIRAX) 400 mg tablet as needed. clotrimazole-betamethasone (LOTRISONE) cream Apply 1 application to affected area twice daily. SUMAtriptan (IMITREX) 50 mg tablet Take 1 tablet by mouth as needed. at onset of headache. May repeat after 2 hours. naproxen (NAPROSYN) 500 mg tablet as needed (as needed). Current Facility-Administered Medications Medication Dose Route Frequency Provider Last Rate Last Dose - lactated ringers infusion 30 mL/hr INTRAVENOUS CONTINUOUS Brett Joyastro 30 mL/hr at 07/07/19904 30 mL/hr at 07/07/19904 Allergies: ALLERGIES Allergen Reactions - Bactrim [Sulfametho* Hives - Erythromycin Base Hives, Shortness of Breath - Penicillin Other: See Comments As a child - Sulfa (Sulfonamide * Unknown DOS EXAM: Adequate NPO status: Yes Anesthetic risks, benefits, alternatives, personnel and consent discussed: Yes Patient agrees to proceed: Yes Previous Anesthesia: No history of adverse event. Airway Assessment: MP 3; Neck ROM: Full ROM without neurologic symptoms; Airway Evaluation: Thick neck and Davila Present Symptoms of Sleep Apnea: Snoring, Hypertension, BMI > 35, Neck circumference > 15.75 inches and Male gender Dentition: Dentures: both Additional Physical Exam: Lungs: Patient health status unchanged since recent history and physical. See history and physical for exam findings. Cardiac: Patient health status unchanged since recent history and physical. See history and physical for exam findings. Additional Pertinent Findings: N/A Blood Products: Not anticipated for this procedure. Anesthetic Plan: General, Standard ASA Monitors Pain Management Plan: Parenteral or Oral ASA Class: 3 Other Medical Problems: None Chronic Beta Annie medication administered within 24 hours: N/A I have interviewed and examined the patient. I have reviewed the medical record and/or the pre-anesthesia evaluation, pertinent labs, and test results. Significant changes in the patient's condition since the History and Physical, not otherwise documented in primary service progress notes: No This contains updated information obtained within 48 hours of Surgery/Procedure. SIGNATURE: Nilesh Polanco MD PATIENT NAME: Sam Rai DATE: July 07, 2019 TIME: 9:32 AM CSN: [id number] [facility] HISTORY PHYSICALon 9 HISTORY PHYSICAL HNO ID: [id number] Author: Brett Knowles Service: Ophthalmology Author Type: Physician Type: HANDP Filed: 07/07/2019 10:52 AM Note Text: UPDATED HISTORY AND PHYSICAL EXAMINATION SERVICE DATE: 07/07/2019 SERVICE TIME: 10:52 AM PHYSICAL EXAM MUST BE COMPLETED ON ADMISSION The History and Physical (completed in the past 30 days) has been reviewed and the patient has been examined. The contents accurately reflect the patient's condition with the following additions or revisions since the HANDP was completed. Examination indicates no changes. This HANDP can be found in the scanned documents dated 06/30/19. SIGNATURE: Brett Knowles MD PATIENT NAME: Sam Rai DATE: July 07, 2019 TIME: 10:52 AM PAGER: [facility] OPERATIVE NOon 07-07-2019 OPERATIVE NO HNO ID: [id number] Author: Brett Knowles Service: Ophthalmology Author Type: Physician Type: Operative Report Filed: 07/07/2019 11:31 AM Note Text: OPERATIVE/PROCEDURE REPORT OPHTHAMOLOGY LOG ID: [id number] Surgery/Procedure Date: 07/07/2019 Incision/Procedure Start Time: 11:01 AM Incision Close/Procedure End Time: 11:29 AM Surgeon(s)/Proceduralist(s) and Textile Conversion Manager(s): Surgeon(s) and Role: * Brett Knowles - Primary Procedure(s): Procedure(s) (LRB): REPAIR STRABISMUS 2 HORIZONTAL MUSCLES (Right) Preoperative Diagnosis: Exotropia of right eye [H50.10] Postoperative Diagnosis: Exotropia of right eye [H50.10] Operative Indications: Double vision Anesthesia: Monitored Anesthesia Care Procedure Details: The patient was brought into the operating room, placed under adequate retrobulbar anesthesia. The face was prepped and draped usual sterile fashion for eye muscle surgery. Lid speculum was inserted. Forced ductions were normal. A limbus incision was made down to bare sclera over the lateral rectus muscle, which was isolated and cleaned. A double-arm 6-0 Vicryl suture was passed through the belly of the muscle in double-locking fashion. The muscle was then cut and recessed using the hang back technique. The conjunctiva was closed using 7-0 Vicryl. A limbus incision was made down to bare sclera over the medial rectus muscle. A clamp was placed posterior to the insertion and a double-arm 6-0 Vicryl suture was passed through the belly of the muscle in double-locking fashion posterior to the clamp. The muscle was resected. The clamp was removed and the resected muscle was reattached to the original insertion using 6-0 Vicryl. The conjunctiva was closed with 7-0 Vicryl. Antibiotic ointment was placed in the eye, which was patched. The patient was returned to recovery room in satisfactory condition. Estimated Blood Loss: Minimal unless noted here. Specimens: * No specimens in log * Implantable Devices: * No implants in log * Drains: None unless noted here. Complications: None I performed the entire procedure. SIGNATURE: Brett Knowles MD PATIENT NAME: Sam Rai DATE: July 07, 2019 TIME: 11:31 AM PAGER/CONTACT #: [facility] HOSP 06-14-2019 [facility] Patient:Anurag Rai MRN: Height:5' 7"(1.702 m) Weight:280 lb 3.2 oz (127.098 kg) Outpatient Medications as of 07/07/19: gabapentin (NEURONTIN) 300 mg capsule topiramate (TOPAMAX) 25 mg tablet traZODone (DESYREL) 100 mg tablet FLUoxetine (PROZAC) 10 mg capsule hydrOXYzine HCl (ATARAX) 25 mg tablet prazosin (MINIPRESS) 1 mg cap acyclovir (ZOVIRAX) 400 mg tablet clotrimazole-betamethasone (LOTRISONE) cream famotidine (PEPCID) 20 mg tablet SUMAtriptan (IMITREX) 50 mg tablet naproxen (NAPROSYN) 500 mg tablet Admission/Clinic Administered Medications as of 07/07/19: lactated ringers infusion Problem List: Primary osteoarthritis of right knee [M17.11] Pain in right knee [M25.561] Acute frontal sinusitis [J01.10] Contact dermatitis [L25.9] Mass on back [R22.2] Aftercare following surgery [Z48.89] Restless leg syndrome [G25.81] Migraine with aura and without status migrainosus, not intractable [G43.109] Mild intermittent asthma without complication [J45.20] Eczema [L30.9] Obesity, Class III, BMI >= 40 E66.01 [E66.01] Posterior tibial tendinitis of left leg [M76.822] 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] Obesity, morbid, BMI 40.0-49.9 ([facility]) [E66.01] Diverticulosis [K57.90] Chronic nonintractable headache [R51] Closed fracture of bone of right foot [S92.901A] Intractable migraine without aura and without status migrainosus [G43.019] Allergies: Bactrim [Sulfamethoxazole-Trimethop rim] Erythromycin Base Penicillin Sulfa (Sulfonamide Antibiotics) Date Verified: 07/07/19 Lab Values No results within the last 30 days for the following basenames: K,HCT Progress Notes ([facility]): Viola Fulton APRN.CNP, CNP 07/06/2019 11:30 AM Signed Increase gabapentin to 600-900 mg at night Continue topamax Follow up in 6 months Viola Fulton APRN.CNP, MARILEE 07/06/2019 11:38 AM Signed Neurology Follow Up Note Date: July 06, 2019 Patient Name: Sam Rai HPI: This is Mr. Sam Rai a 43 year old male who presents to [facility] for follow up of migraines. Pt was last seen by Dr. Nevarez 06/05/19. He was started on topamax for preventative tx and was given a medrol dose andre to help break his cycle. Per Dr. Nevarez's last note: Patient with known history of migraine headaches, previously rare and controlled with Imitrex. He now presents with transformation of these migraines as they have become intractable and essentially a chronic daily headaches. As headaches are all associated with sensitivities I do suspect that they are migraines and not tension headaches. Diagnosis discussed with patient in detail including etiology, physiology, treatment options. Possible that dental work or allergic reaction to abx post dental work is what provoked the change in migraine pattern and frequency. As he has had now 3 CT of the brain in the past 3 month (here at [facility] and at OSH) will hold on additional imaging for now unless headache worsens. Focus will be on treatment. Today pt arrives alone. States that the topamax has worked really well. The medrol dose andre did help break his NICE cycle. He is very pleased at this time. He admits that stress was a factor at the time he saw Dr. Nevarez. He also states that his RLS usually does well with GPN but he has a few nights that he feels his dose is not enough. I will order GPN to be taken 600-900 mg at night. He agrees to this. He is to follow up in 6 months or sooner if needed. Medications: gabapentin (NEURONTIN) 300 mg capsule Take 2 capsules by mouth as directed for 30 days. Take 2-3 pills per night topiramate (TOPAMAX) 25 mg tablet Take 1 tab QHS x1 week then; 2 tabs QHS x1 week, then 3 tabs QHS and continue traZODone (DESYREL) 100 mg tablet Take 1 tablet by mouth daily at bedtime. FLUoxetine (PROZAC) 10 mg capsule Take 1 capsule by mouth once daily. hydrOXYzine HCl (ATARAX) 25 mg tablet Take 1 tablet by mouth three times daily as needed for Itching/Rash. And anxiety prazosin (MINIPRESS) 1 mg cap Take 1 capsule by mouth daily at bedtime. acyclovir (ZOVIRAX) 400 mg tablet as needed. clotrimazole-betamethasone (LOTRISONE) cream Apply 1 application to affected area twice daily. famotidine (PEPCID) 20 mg tablet Take 1 tablet by mouth once daily. SUMAtriptan (IMITREX) 50 mg tablet Take 1 tablet by mouth as needed. at onset of headache. May repeat after 2 hours. naproxen (NAPROSYN) 500 mg tablet as needed (as needed). PMH/PSH/FH/ALLERGIES: Reviewed from last visit and unchanged. ROS: Reviewed from prior visit and unchanged. Physical Exam: Vitals: BP 136/80 (BP Site: Left Arm, BP Position: Sitting, BP Cuff Size: Regular Adult) Pulse 85 Ht 5' 7" (1.702 m) Wt 280 lb 3.2 oz (127.1 kg) SpO2 98% BMI 43.89 kg/m? Gen: well appearing, in no acute distress CV: 2+ radial pulses Alert, oriented to person, place, time. Speech fluent with no dysarthria or aphasia. Attention and concentration intact. Recent and remote memory intact. Fund of knowledge is normal. Pupils equally round and reactive to light. Extraocular muscles intact. Visual chinchilla full, face symmetric. Normal muscles bulk and tone Muscle strength symmetric, 5/5 bilateral upper and lower extremities. Sensation intact to light touch throughout Coordination intact Gait is normal Studies: Most recent labs Most recent imaging ASSESSMENT/PLAN: 1. Intractable episodic headache, unspecified headache type - ICD9: 784.0, ICD10: R51 (primary diagnosis) Continue with topamax 75 mg qhs 2. RLS (restless legs syndrome) - ICD9: 333.94, ICD10: G25.81 - increase GPN to 600-900 mg qhs RTC in 6 months Viola Fulton APRN.PIG 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 [facility], Department of Neurology Progress Notes (INTM AG ACC): Crista Parrish RN, RN 07/04/2019 9:41 AM Signed Received a TC from Maryse at Dr. Knowles's office. She is requesting that the office note from 06/30/19. Once completed it can be faxed to [phone] or [phone]. The patients surgery is on Wednesday Alexsander Aguilar MD 07/04/2019 11:08 AM Signed Recent ov note can be faxed. MD Crista Sparks RN, RN 07/04/2019 1:36 PM Signed Office note faxed to [phone]. Confirmation received. [facility] No Panel Information [facility] Vital Signs Date Time Vital Sign Value Performing Clinician Ester narvaez 05-15-2025 10:42-0400 Body height 170.2 cm Remi 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 Work Phone: [facility] 05-15-2025 10:42-0400 Body mass index (BMI) [Ratio] 38.53 kg/m2 Remi 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 Work Phone: [facility] 05-15-2025 10:42-0400 Body weight 111.58 kg Remi 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 Work Phone: [facility] 05-15-2025 10:42-0400 Diastolic blood pressure 80 mm[Hg] Remi 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 Work Phone: [facility] 05-15-2025 10:42-0400 Heart rate 77 /min Remi 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 Work Phone: [facility] 05-15-2025 10:42-0400 Respiratory rate 18 /min Remi 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 Work Phone: [facility] 05-15-2025 10:42-0400 SaO2% (BldA) [Mass fraction] 100 % Remi 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 Work Phone: [facility] 05-15-2025 10:42-0400 Systolic blood pressure 118 mm[Hg] Remi 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 Work Phone: [facility] 04-23-2025 15:34-0400 Body height 170.2 cm Remi 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 Work Phone: [facility] 04-23-2025 15:34-0400 Body mass index (BMI) [Ratio] 39 kg/m2 Remi 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 Work Phone: [facility] 04-23-2025 15:34-0400 Body weight 112.95 kg Remi 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 Work Phone: [facility] 04-23-2025 15:34-0400 Diastolic blood pressure 72 mm[Hg] Remi 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 Work Phone: [facility] 04-23-2025 15:34-0400 Heart rate 106 /min Remi 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 Work Phone: [facility] 04-23-2025 15:34-0400 Respiratory rate 18 /min Remi 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 Work Phone: [facility] 04-23-2025 15:34-0400 SaO2% (BldA) [Mass fraction] 98 % Remi 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 Work Phone: [facility] 04-23-2025 15:34-0400 Systolic blood pressure 100 mm[Hg] Remi 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 Work Phone: [facility] 02-12-2025 09:24-0400 Body height 170.2 cm Remi 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 Work Phone: [facility] 02-12-2025 09:24-0400 Body mass index (BMI) [Ratio] 42.29 kg/m2 Remi 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 Work Phone: [facility] 02-12-2025 09:24-0400 Body weight 122.47 kg Remi 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 Work Phone: [facility] 02-12-2025 09:24-0400 Diastolic blood pressure 82 mm[Hg] Remi 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 Work Phone: [facility] 02-12-2025 09:24-0400 Heart rate 79 /min Remi 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 Work Phone: [facility] 02-12-2025 09:24-0400 Respiratory rate 16 /min Remi Fernandezcci [employer] AND [employer] PL[employer] 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 Work Phone: [facility] 02-12-2025 09:24-0400 SaO2% (BldA) [Mass fraction] 98 % Remi 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 Work Phone: [facility] 02-12-2025 09:24-0400 Systolic blood pressure 117 mm[Hg] Reim Fernandezcci [employer] AND [employer] PL[employer] 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 Work Phone: [facility] 02-09-2025 10:28-0400 Body height 170.2 cm Lina Duarte APRN.PIG 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 Work Phone: [facility] 02-09-2025 10:28-0400 Body mass index (BMI) [Ratio] 42.29 kg/m2 Lina Duarte APRN.PIG 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 Work Phone: [facility] 02-09-2025 10:28-0400 Body temperature 97.81 [degF] Lina Duarte APRN.PIG 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 Work Phone: [facility] 02-09-2025 10:28-0400 Body weight 122.47 kg Lina Duarte APRN.PIG 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 Work Phone: [facility] 02-09-2025 10:28-0400 Diastolic blood pressure 72 mm[Hg] Lina Duarte APRN.PIG 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 Work Phone: [facility] 02-09-2025 10:28-0400 Heart rate 65 /min Lina Duarte APRN.PIG 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 Work Phone: [facility] 02-09-2025 10:28-0400 Respiratory rate 16 /min Lina Duarte APRN.PIG 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 Work Phone: [facility] 02-09-2025 10:28-0400 SaO2% (BldA) [Mass fraction] 98 % Lina Duarte APRN.PIG 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 Work Phone: [facility] 02-09-2025 10:28-0400 Systolic blood pressure 106 mm[Hg] Lina Duarte [employer] AND [employer] PL[employer] 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 Work Phone: [facility] 12-29-2024 14:46-0500 Body height 170.2 cm Tre Serrano MD Work Phone: [facility] 12-29-2024 14:46-0500 Body mass index (BMI) [Ratio] 40.72 kg/m2 Tre Serrano MD Work Phone: [facility] 12-29-2024 14:46-0500 Body weight 117.94 kg Tre Serrano MD Work Phone: [facility] 12-29-2024 14:46-0500 Respiratory rate 16 /min Tre Serrano MD Work Phone: [facility] 12-20-2024 15:24-0500 Body height 170.2 cm Remi 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 Work Phone: [facility] 12-20-2024 15:24-0500 Body mass index (BMI) [Ratio] 40.72 kg/m2 Remi 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 Work Phone: [facility] 12-20-2024 15:24-0500 Body weight 117.94 kg Remi 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 Work Phone: [facility] 12-20-2024 15:24-0500 Diastolic blood pressure 74 mm[Hg] Remi 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 Work Phone: [facility] 12-20-2024 15:24-0500 Heart rate 82 /min Remi 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 Work Phone: [facility] 12-20-2024 15:24-0500 Respiratory rate 16 /min Remi 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 Work Phone: [facility] 12-20-2024 15:24-0500 SaO2% (BldA) [Mass fraction] 99 % Remi 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 Work Phone: [facility] 12-20-2024 15:24-0500 Systolic blood pressure 108 mm[Hg] Remi 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 Work Phone: [facility] 11-09-2024 09:54-0500 Body height 170.2 cm Remi 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 Work Phone: [facility] 11-09-2024 09:54-0500 Body mass index (BMI) [Ratio] 40.41 kg/m2 Remi 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 Work Phone: [facility] 11-09-2024 09:54-0500 Body temperature 98.01 [degF] Remi 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 Work Phone: [facility] 11-09-2024 09:54-0500 Body weight 117.03 kg Remi 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 Work Phone: [facility] 11-09-2024 09:54-0500 Diastolic blood pressure 71 mm[Hg] Remi 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 Work Phone: [facility] 11-09-2024 09:54-0500 Heart rate 76 /min Remi 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 Work Phone: [facility] 11-09-2024 09:54-0500 Respiratory rate 18 /min Remi 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 Work Phone: [facility] 11-09-2024 09:54-0500 SaO2% (BldA) [Mass fraction] 97 % Remi 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 Work Phone: [facility] 11-09-2024 09:54-0500 Systolic blood pressure 103 mm[Hg] Remi 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 Work Phone: [facility] 10-19-2024 11:38-0500 Body height 170.2 cm Remi 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 Work Phone: [facility] 10-19-2024 11:38-0500 Body mass index (BMI) [Ratio] 39.63 kg/m2 Remi 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 Work Phone: [facility] 10-19-2024 11:38-0500 Body weight 114.76 kg Remi 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 Work Phone: [facility] 10-19-2024 11:38-0500 Diastolic blood pressure 75 mm[Hg] Remi 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 Work Phone: [facility] 10-19-2024 11:38-0500 Heart rate 73 /min Remi 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 Work Phone: [facility] 10-19-2024 11:38-0500 Respiratory rate 16 /min Remi 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 Work Phone: [facility] 10-19-2024 11:38-0500 SaO2% (BldA) [Mass fraction] 97 % Remi 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 Work Phone: [facility] 10-19-2024 11:38-0500 Systolic blood pressure 118 mm[Hg] Remi 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 Work Phone: [facility] 10-12-2024 08:07-0500 Body height 170.2 cm Remi 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 Work Phone: [facility] 10-12-2024 08:07-0500 Body mass index (BMI) [Ratio] 39.47 kg/m2 Remi 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 Work Phone: [facility] 10-12-2024 08:07-0500 Body temperature 98.01 [degF] Remi 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 Work Phone: [facility] 10-12-2024 08:07-0500 Body weight 114.31 kg Remi 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 Work Phone: [facility] 10-12-2024 08:07-0500 Diastolic blood pressure 84 mm[Hg] Remi 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 Work Phone: [facility] 10-12-2024 08:07-0500 Heart rate 80 /min Remi 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 Work Phone: [facility] 10-12-2024 08:07-0500 Respiratory rate 16 /min Remi 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 Work Phone: [facility] 10-12-2024 08:07-0500 SaO2% (BldA) [Mass fraction] 98 % Remi 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 Work Phone: [facility] 10-12-2024 08:07-0500 Systolic blood pressure 131 mm[Hg] Remi 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 Work Phone: [facility] 09-20-2024 07:58-0500 Body height 170.2 cm Remi 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 Work Phone: [facility] 09-20-2024 07:58-0500 Body mass index (BMI) [Ratio] 39.16 kg/m2 Remi 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 Work Phone: [facility] 09-20-2024 07:58-0500 Body weight 113.4 kg Remi 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 Work Phone: [facility] 09-20-2024 07:58-0500 Diastolic blood pressure 75 mm[Hg] Remi 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 Work Phone: [facility] 09-20-2024 07:58-0500 Heart rate 77 /min Remi 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 Work Phone: [facility] 09-20-2024 07:58-0500 Respiratory rate 16 /min Remi 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 Work Phone: [facility] 09-20-2024 07:58-0500 SaO2% (BldA) [Mass fraction] 98 % Remi 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 Work Phone: [facility] 09-20-2024 07:58-0500 Systolic blood pressure 107 mm[Hg] Remi 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 Work Phone: [facility] 08-23-2024 09:23-0400 Body height 170.2 cm Remi 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 Work Phone: [facility] 08-23-2024 09:23-0400 Body mass index (BMI) [Ratio] 39.31 kg/m2 Remi 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 Work Phone: [facility] 08-23-2024 09:23-0400 Body weight 113.85 kg Remi 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 Work Phone: [facility] 08-23-2024 09:23-0400 Diastolic blood pressure 89 mm[Hg] Remi 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 Work Phone: [facility] 08-23-2024 09:23-0400 Heart rate 77 /min Remi 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 Work Phone: [facility] 08-23-2024 09:23-0400 Respiratory rate 16 /min Remi 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 Work Phone: [facility] 08-23-2024 09:23-0400 SaO2% (BldA) [Mass fraction] 99 % Remi 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 Work Phone: [facility] 08-23-2024 09:23-0400 Systolic blood pressure 126 mm[Hg] Remi 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 Work Phone: [facility] 08-08-2024 14:09-0400 Body height 170.2 cm Gurmeet Finn DO Work Phone: [facility] 08-08-2024 14:09-0400 Body mass index (BMI) [Ratio] 39.47 kg/m2 Gurmeet Kruegera DO Work Phone: [facility] 08-08-2024 14:09-0400 Body weight 114.31 kg Gurmeet Kruegera DO Work Phone: [facility] 08-08-2024 14:09-0400 Diastolic blood pressure 77 mm[Hg] Gurmeet Irizarrynicka DO Work Phone: [facility] 08-08-2024 14:09-0400 Heart rate 61 /min Gurmeet Kruegera DO Work Phone: [facility] 08-08-2024 14:09-0400 Respiratory rate 16 /min Gurmeet Kruegera DO Work Phone: [facility] 08-08-2024 14:09-0400 SaO2% (BldA) [Mass fraction] 98 % Gurmeet Kruegera DO Work Phone: [facility] 08-08-2024 14:09-0400 Systolic blood pressure 110 mm[Hg] Gurmeet Kruegera DO Work Phone: [facility] 07-13-2024 15:03-0400 Body height 170.2 cm Remi 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 Work Phone: [facility] 07-13-2024 15:03-0400 Body mass index (BMI) [Ratio] 39.47 kg/m2 Remi 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 Work Phone: [facility] 07-13-2024 15:03-0400 Body weight 114.31 kg Remi 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 Work Phone: [facility] 07-13-2024 15:03-0400 Diastolic blood pressure 78 mm[Hg] Remi 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 Work Phone: [facility] 07-13-2024 15:03-0400 Heart rate 73 /min Remi 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 Work Phone: [facility] 07-13-2024 15:03-0400 Respiratory rate 18 /min Remi 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 Work Phone: [facility] 07-13-2024 15:03-0400 SaO2% (BldA) [Mass fraction] 99 % Remi 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 Work Phone: [facility] 07-13-2024 15:03-0400 Systolic blood pressure 111 mm[Hg] Remi 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 Work Phone: [facility] 06-21-2024 13:28-0400 Body mass index (BMI) [Ratio] 39.88 kg/m2 Dolly Rodas MD Work Phone: [facility] 06-21-2024 13:28-0400 Body weight 115.49 kg Dolly Rodas MD Work Phone: [facility] 06-21-2024 13:28-0400 Diastolic blood pressure 76 mm[Hg] Dolly Rodas MD Work Phone: [facility] 06-21-2024 13:28-0400 Heart rate 76 /min Dolly Rodas MD Work Phone: [facility] 06-21-2024 13:28-0400 SaO2% (BldA) [Mass fraction] 98 % Dolly Rodas MD Work Phone: [facility] 06-21-2024 13:28-0400 Systolic blood pressure 112 mm[Hg] Dolly Rodas MD Work Phone: [facility] 06-09-2024 14:53-0400 Body height 170.2 cm Remi 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 Work Phone: [facility] 06-09-2024 14:53-0400 Body mass index (BMI) [Ratio] 40.41 kg/m2 Remi 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 Work Phone: [facility] 06-09-2024 14:53-0400 Body weight 117.03 kg Remi 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 Work Phone: [facility] 06-09-2024 14:53-0400 Diastolic blood pressure 87 mm[Hg] Remi 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 Work Phone: [facility] 06-09-2024 14:53-0400 Heart rate 76 /min Remi 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 Work Phone: [facility] 06-09-2024 14:53-0400 Respiratory rate 18 /min Remi 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 Work Phone: [facility] 06-09-2024 14:53-0400 SaO2% (BldA) [Mass fraction] 97 % Remi 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 Work Phone: [facility] 06-09-2024 14:53-0400 Systolic blood pressure 121 mm[Hg] Remi 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 Work Phone: [facility] 05-31-2024 09:35-0400 Body height 170.2 cm Remi 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 Work Phone: [facility] 05-31-2024 09:35-0400 Body mass index (BMI) [Ratio] 40.41 kg/m2 Remi 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 Work Phone: [facility] 05-31-2024 09:35-0400 Body weight 117.03 kg Remi 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 Work Phone: [facility] 05-31-2024 09:35-0400 Diastolic blood pressure 85 mm[Hg] Remi 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 Work Phone: [facility] 05-31-2024 09:35-0400 Heart rate 75 /min Remi 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 Work Phone: [facility] 05-31-2024 09:35-0400 Respiratory rate 18 /min Remi 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 Work Phone: [facility] 05-31-2024 09:35-0400 SaO2% (BldA) [Mass fraction] 97 % Remi Faraz [employer] PL[employer] 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 Work Phone: [facility] 05-31-2024 09:35-0400 Systolic blood pressure 128 mm[Hg] Remilibby Fernandezcci C[employer] AND [employer]E PL[employer] 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 Work Phone: [facility] 05-23-2024 09:02-0400 Body mass index (BMI) [Ratio] 39.71 kg/m2 Bennie Ballesteros PA-C Work Phone: [facility] 05-23-2024 09:02-0400 Body temperature 97.7 [degF] Bennie Ballesteros PA-C Work Phone: [facility] 05-23-2024 09:02-0400 Body weight 115 kg Bennie Ballesteros PA-C Work Phone: [facility] 05-23-2024 09:02-0400 Diastolic blood pressure 90 mm[Hg] Bennie Pakton PA-C Work Phone: [facility] 05-23-2024 09:02-0400 Heart rate 75 /min Bennie Ballesteros PA-C Work Phone: [facility] 05-23-2024 09:02-0400 Respiratory rate 16 /min Bennie Ballesteros PA-C Work Phone: [facility] 05-23-2024 09:02-0400 SaO2% (BldA) [Mass fraction] 100 % Bennie Ballesteros PA-C Work Phone: [facility] 05-23-2024 09:02-0400 Systolic blood pressure 128 mm[Hg] Bennie Ballesteros PA-C Work Phone: [facility] 03-09-2024 09:22-0400 Body height 170.2 cm Elmira Swartz [employer] 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 Work Phone: [facility] 03-09-2024 09:22-0400 Body mass index (BMI) [Ratio] 41.95 kg/m2 Elmira Ball [employer] 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 Work Phone: [facility] 03-09-2024 09:22-0400 Body temperature 97.2 [degF] Elmira Ball [employer] AND [employer] PL[employer] 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 Work Phone: [facility] 03-09-2024 09:22-0400 Body weight 121.5 kg Elmira Ball [employer] AND [employer] PL[employer] 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 Work Phone: [facility] 03-09-2024 09:22-0400 Diastolic blood pressure 68 mm[Hg] Elmira Ball [employer] AND [employer] PL[employer] 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 Work Phone: [facility] 03-09-2024 09:22-0400 Heart rate 73 /min Elmira Ball [employer] AND [employer] PL[employer] 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 Work Phone: [facility] 03-09-2024 09:22-0400 Respiratory rate 18 /min Elmira Ball [employer] AND [employer] PL[employer] 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 Work Phone: [facility] 03-09-2024 09:22-0400 SaO2% (BldA) [Mass fraction] 99 % Elmira Ball [employer] AND [employer] PL[employer] 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 Work Phone: [facility] 03-09-2024 09:22-0400 Systolic blood pressure 112 mm[Hg] Elmira Ball [employer] AND [employer] PL[employer] 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 Work Phone: [facility] 02-25-2024 12:17-0400 Body height 170.2 cm Brenda Wormald PA-C Work Phone: [facility] 02-25-2024 12:17-0400 Body mass index (BMI) [Ratio] 43.33 kg/m2 Brenda Wormald PA-C Work Phone: [facility] 02-25-2024 12:17-0400 Body temperature 99.19 [degF] Brenda Wormald PA-C Work Phone: [facility] 02-25-2024 12:17-0400 Body weight 125.5 kg Brenda Wormald PA-C Work Phone: [facility] 02-25-2024 12:17-0400 Diastolic blood pressure 71 mm[Hg] Brenda Wormald PA-C Work Phone: [facility] 02-25-2024 12:17-0400 Heart rate 91 /min Brenda Wormald PA-C Work Phone: [facility] 02-25-2024 12:17-0400 Respiratory rate 16 /min Brenda Wormald PA-C Work Phone: [facility] 02-25-2024 12:17-0400 SaO2% (BldA) [Mass fraction] 98 % Brenda Wormald PA-C Work Phone: [facility] 02-25-2024 12:17-0400 Systolic blood pressure 135 mm[Hg] Brenda Wormald PA-C Work Phone: [facility] 12-23-2023 12:56-0500 Body weight 125.5 kg Brenda Wormald PA-C Work Phone: [facility] 12-23-2023 12:56-0500 Diastolic blood pressure 88 mm[Hg] Brenda Wormald PA-C Work Phone: [facility] 12-23-2023 12:56-0500 Heart rate 81 /min Brenda Wormald PA-C Work Phone: [facility] 12-23-2023 12:56-0500 SaO2% (BldA) [Mass fraction] 96 % Brenda Wormald PA-C Work Phone: [facility] 12-23-2023 12:56-0500 Systolic blood pressure 136 mm[Hg] Brenda Wormald PA-C Work Phone: [facility] 08-17-2023 13:07-0400 Body height 170.2 cm Remi Ruth [employer] 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 Work Phone: [facility] 08-17-2023 13:07-0400 Body temperature 97.5 [degF] Remi Griffinrucci [employer] 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 Work Phone: [facility] 08-17-2023 13:07-0400 Body weight 122.47 kg Remi 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 Work Phone: [facility] 08-17-2023 13:07-0400 Diastolic blood pressure 84 mm[Hg] Remi 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 Work Phone: [facility] 08-17-2023 13:07-0400 Heart rate 81 /min Remi 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 Work Phone: [facility] 08-17-2023 13:07-0400 Respiratory rate 16 /min Remi 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 Work Phone: [facility] 08-17-2023 13:07-0400 SaO2% (BldA) [Mass fraction] 97 % Remi 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 Work Phone: [facility] 08-17-2023 13:07-0400 Systolic blood pressure 107 mm[Hg] Remi 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 Work Phone: [facility] 07-19-2023 14:02-0400 Body weight 121.47 kg Devon James Jr., MD Work Phone: [facility] 07-19-2023 14:02-0400 Diastolic blood pressure 72 mm[Hg] Devon James Jr., MD Work Phone: [facility] 07-19-2023 14:02-0400 Heart rate 72 /min Devon James Jr., MD Work Phone: [facility] 07-19-2023 14:02-0400 SaO2% (BldA) [Mass fraction] 97 % Devon James Jr., MD Work Phone: [facility] 07-19-2023 14:02-0400 Systolic blood pressure 116 mm[Hg] Devon James Jr., MD Work Phone: [facility] 07-12-2023 10:26-0400 Body height 170.2 cm Elmira Polo PA-C Work Phone: [facility] 07-12-2023 10:26-0400 Body temperature 98.1 [degF] Elmira Rudert PA-C Work Phone: [facility] 07-12-2023 10:26-0400 Body weight 121.11 kg Elmira Rudert PA-C Work Phone: [facility] 07-12-2023 10:26-0400 Diastolic blood pressure 78 mm[Hg] Elmira Rudert PA-C Work Phone: [facility] 07-12-2023 10:26-0400 Heart rate 76 /min Elmira Rudert PA-C Work Phone: [facility] 07-12-2023 10:26-0400 Respiratory rate 18 /min Elmira Rudert PA-C Work Phone: [facility] 07-12-2023 10:26-0400 SaO2% (BldA) [Mass fraction] 96 % Elmira Rudert PA-C Work Phone: [facility] 07-12-2023 10:26-0400 Systolic blood pressure 132 mm[Hg] Elmira Rudert PA-C Work Phone: [facility] 05-13-2023 08:35-0400 Body height 170.2 cm Kristopher Toussaint PA-C Work Phone: [facility] 05-13-2023 08:35-0400 Body weight 121.56 kg Kristopher Toussaint PA-C Work Phone: [facility] 05-13-2023 08:35-0400 Respiratory rate 16 /min Kristopher Toussaint PA-C Work Phone: [facility] 03-31-2023 14:21-0400 Body weight 120.02 kg Devon James Jr., MD Work Phone: [facility] 03-31-2023 14:21-0400 Heart rate 69 /min Devon James Jr., MD Work Phone: [facility] 03-31-2023 14:21-0400 SaO2% (BldA) [Mass fraction] 96 % Devon James Jr., MD Work Phone: [facility] 02-02-2023 13:47-0400 Body height 170.2 cm Elmira Rudert PA-C Work Phone: [facility] 02-02-2023 13:47-0400 Body weight 118.3 kg Elmira Rudert PA-C Work Phone: [facility] 02-02-2023 13:47-0400 Diastolic blood pressure 74 mm[Hg] Elmira Rudert PA-C Work Phone: [facility] 02-02-2023 13:47-0400 Heart rate 85 /min Elmira Rudert PA-C Work Phone: [facility] 02-02-2023 13:47-0400 Respiratory rate 12 /min Elmira Rudert PA-C Work Phone: [facility] 02-02-2023 13:47-0400 SaO2% (BldA) [Mass fraction] 96 % Elmira Rudert PA-C Work Phone: [facility] 02-02-2023 13:47-0400 Systolic blood pressure 111 mm[Hg] Elmira Rudert PA-C Work Phone: [facility] 12-08-2022 14:20-0500 Body height 170.2 cm Elmira Rudert PA-C Work Phone: [facility] 12-08-2022 14:20-0500 Body weight 121.11 kg Elmira Rudert PA-C Work Phone: [facility] 12-08-2022 14:20-0500 Diastolic blood pressure 70 mm[Hg] Elmira Rudert PA-C Work Phone: [facility] 12-08-2022 14:20-0500 Heart rate 78 /min Elmira Rudert PA-C Work Phone: [facility] 12-08-2022 14:20-0500 SaO2% (BldA) [Mass fraction] 97 % Elmira Polo PA-C Work Phone: [facility] 12-08-2022 14:20-0500 Systolic blood pressure 114 mm[Hg] Elmira Polo PA-C Work Phone: [facility] 10-05-2022 14:17-0500 Body height 170.2 cm Devon James Jr., MD Work Phone: [facility] 10-05-2022 14:17-0500 Body weight 118.57 kg Devon James Jr., MD Work Phone: [facility] 10-05-2022 14:17-0500 Diastolic blood pressure 83 mm[Hg] Devno James Jr., MD Work Phone: [facility] 10-05-2022 14:17-0500 Heart rate 84 /min Devon James Jr., MD Work Phone: [facility] 10-05-2022 14:17-0500 SaO2% (BldA) [Mass fraction] 98 % Devon James Jr., MD Work Phone: [facility] 10-05-2022 14:17-0500 Systolic blood pressure 124 mm[Hg] Devon James Jr., MD Work Phone: [facility] 08-18-2022 10:07-0400 Body height 170.2 cm Tre Serrano MD Work Phone: [facility] 08-18-2022 10:07-0400 Body weight 121.56 kg Tre Serrano MD Work Phone: [facility] 08-18-2022 10:07-0400 Respiratory rate 18 /min Tre Serrano MD Work Phone: [facility] 08-14-2022 08:13-0400 Body height 170.2 cm Avelina Matias MD Work Phone: [facility] 08-14-2022 08:13-0400 Body weight 121.56 kg Avelina Matias MD Work Phone: [facility] 08-14-2022 08:13-0400 Diastolic blood pressure 74 mm[Hg] Avelina Matias MD Work Phone: [facility] 08-14-2022 08:13-0400 Heart rate 80 /min Avelina Matias MD Work Phone: [facility] 08-14-2022 08:13-0400 SaO2% (BldA) [Mass fraction] 97 % Avelina Matias MD Work Phone: [facility] 08-14-2022 08:13-0400 Systolic blood pressure 110 mm[Hg] Avelina Matias MD Work Phone: [facility] 08-10-2022 13:45-0400 Body height 170.2 cm Lina Foradis [employer] 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 Work Phone: [facility] 08-10-2022 13:45-0400 Body temperature 99 [degF] Lina Foradis [employer] 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 Work Phone: [facility] 08-10-2022 13:45-0400 Body weight 120.2 kg Lina Foradis [employer] 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 Work Phone: [facility] 08-10-2022 13:45-0400 Diastolic blood pressure 69 mm[Hg] Lina Foradis [employer] 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 Work Phone: [facility] 08-10-2022 13:45-0400 Heart rate 91 /min Lina Foradis [employer] PL[employer] 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 Work Phone: [facility] 08-10-2022 13:45-0400 Respiratory rate 18 /min Lina Foradis [employer] PL[employer] 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 Work Phone: [facility] 08-10-2022 13:45-0400 SaO2% (BldA) [Mass fraction] 97 % Lina Foradis [employer] PL[employer] 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 Work Phone: [facility] 08-10-2022 13:45-0400 Systolic blood pressure 101 mm[Hg] Lina Duarte [employer] 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 Work Phone: [facility] 07-02-2022 15:04-0400 Body height 170.2 cm Tre Serrano MD Work Phone: [facility] 07-02-2022 15:04-0400 Body weight 122.02 kg Tre Serrano MD Work Phone: [facility] 07-02-2022 15:04-0400 Respiratory rate 18 /min Tre Serrano MD Work Phone: [facility] 06-19-2022 11:44-0400 Body height 170.2 cm Devon James Jr., MD Work Phone: [facility] 06-19-2022 11:44-0400 Body temperature 97.81 [degF] Devon James Jr., MD Work Phone: [facility] 06-19-2022 11:44-0400 Body weight 122.11 kg Devon James Jr., MD Work Phone: [facility] 06-19-2022 11:44-0400 Diastolic blood pressure 83 mm[Hg] Devon James Jr., MD Work Phone: [facility] 06-19-2022 11:44-0400 Heart rate 83 /min Devon James Jr., MD Work Phone: [facility] 06-19-2022 11:44-0400 SaO2% (BldA) [Mass fraction] 97 % Devon James Jr., MD Work Phone: [facility] 06-19-2022 11:44-0400 Systolic blood pressure 116 mm[Hg] Devon James Jr., MD Work Phone: [facility] 06-17-2022 15:15-0400 Body height 170.2 cm Melissa Mae [employer] 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 Work Phone: [facility] 06-17-2022 15:15-0400 Body temperature 98.1 [degF] Melissa Mae [employer] PL[employer] 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 Work Phone: [facility] 06-17-2022 15:15-0400 Body weight 122.02 kg Melissa Mae [employer] PL[employer] 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 Work Phone: [facility] 06-17-2022 15:15-0400 Diastolic blood pressure 74 mm[Hg] Melissa Mae [employer] PL[employer] 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 Work Phone: [facility] 06-17-2022 15:15-0400 Heart rate 84 /min Melissa Mae [employer] PL[employer] 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 Work Phone: [facility] 06-17-2022 15:15-0400 Respiratory rate 18 /min Melissa Mae [employer] PL[employer] 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 Work Phone: [facility] 06-17-2022 15:15-0400 SaO2% (BldA) [Mass fraction] 97 % Melissa Mae [employer] PL[employer] 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 Work Phone: [facility] 06-17-2022 15:15-0400 Systolic blood pressure 133 mm[Hg] Melissa Mae [employer] PL[employer] 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 Work Phone: [facility] 04-23-2022 13:40-0400 Body height 170.2 cm Elmira Ball [employer] PL[employer] 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 Work Phone: [facility] 04-23-2022 13:40-0400 Body temperature 97.5 [degF] Elmira Ball [employer] PL[employer] 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 Work Phone: [facility] 04-23-2022 13:40-0400 Body weight 122.47 kg Elmira Ball [employer] PL[employer] 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 Work Phone: [facility] 04-23-2022 13:40-0400 Diastolic blood pressure 81 mm[Hg] Elmira Ball [employer] PL[employer] 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 Work Phone: [facility] 04-23-2022 13:40-0400 Heart rate 73 /min Elmira Ball [employer] 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 Work Phone: [facility] 04-23-2022 13:40-0400 Respiratory rate 16 /min Elmira Ball [employer] 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 Work Phone: [facility] 04-23-2022 13:40-0400 SaO2% (BldA) [Mass fraction] 98 % Elmira Swartz [employer] 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 Work Phone: [facility] 04-23-2022 13:40-0400 Systolic blood pressure 116 mm[Hg] Elmira Swartz APRN.PIG 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 Work Phone: [facility] 04-13-2022 16:13-0400 Body height 170.2 cm Avelina Matias MD Work Phone: [facility] 04-13-2022 16:13-0400 Body weight 122.65 kg Avelina Matias MD Work Phone: [facility] 04-13-2022 16:13-0400 Diastolic blood pressure 69 mm[Hg] Avelina Matias MD Work Phone: [facility] 04-13-2022 16:13-0400 Heart rate 76 /min Avelina Matias MD Work Phone: [facility] 04-13-2022 16:13-0400 SaO2% (BldA) [Mass fraction] 97 % Avelina Matias MD Work Phone: [facility] 04-13-2022 16:13-0400 Systolic blood pressure 92 mm[Hg] Avelina Matias MD Work Phone: [facility] 04-06-2022 15:49-0400 Body height 170.2 cm Devon James Jr., MD Work Phone: [facility] 04-06-2022 15:49-0400 Body temperature 99.3 [degF] Devon James Jr., MD Work Phone: [facility] 04-06-2022 15:49-0400 Body weight 123.83 kg Devon James Jr., MD Work Phone: [facility] 04-06-2022 15:49-0400 Diastolic blood pressure 64 mm[Hg] Devon James Jr., MD Work Phone: [facility] 04-06-2022 15:49-0400 Heart rate 69 /min Devon James Jr., MD Work Phone: [facility] 04-06-2022 15:49-0400 SaO2% (BldA) [Mass fraction] 96 % Devon James Jr., MD Work Phone: [facility] 04-06-2022 15:49-0400 Systolic blood pressure 90 mm[Hg] Devon James Jr., MD Work Phone: [facility] 03-13-2022 14:09-0400 Body temperature 98.91 [degF] Reba Slabaugh PA-C Work Phone: [facility] 03-13-2022 14:09-0400 Body weight 124.74 kg Reba Slabaugh PA-C Work Phone: [facility] 03-13-2022 14:09-0400 Diastolic blood pressure 76 mm[Hg] Reba Slabaugh PA-C Work Phone: [facility] 03-13-2022 14:09-0400 Heart rate 81 /min Reba Slabaugh PA-C Work Phone: [facility] 03-13-2022 14:09-0400 SaO2% (BldA) [Mass fraction] 96 % Reba Slabaugh PA-C Work Phone: [facility] 03-13-2022 14:09-0400 Systolic blood pressure 126 mm[Hg] Reba Slabaugh PA-C Work Phone: [facility] 03-09-2022 08:59-0400 Body height 170.2 cm Tre Serrano MD Work Phone: [facility] 03-09-2022 08:59-0400 Body weight 127.01 kg Tre Serrano MD Work Phone: [facility] 03-09-2022 08:59-0400 Respiratory rate 19 /min Tre Serrano MD Work Phone: [facility] 02-27-2022 15:11-0400 Body height 170.2 cm Tre Serrano MD Work Phone: [facility] 02-27-2022 15:11-0400 Body weight 127.01 kg Tre Serrano MD Work Phone: [facility] 02-27-2022 15:11-0400 Respiratory rate 18 /min Tre Serrano MD Work Phone: [facility] 02-20-2022 15:07-0400 Body height 170.2 cm Tre Serrano MD Work Phone: [facility] 02-20-2022 15:07-0400 Body weight 127.01 kg Tre Serrano MD Work Phone: [facility] 02-20-2022 15:07-0400 Respiratory rate 19 /min Tre Serrano MD Work Phone: [facility] 02-09-2022 12:56-0400 Body height 170.2 cm Agapito Hale MD Work Phone: [facility] 02-09-2022 12:56-0400 Body weight 127.19 kg Agapito Hale MD Work Phone: [facility] 02-09-2022 12:56-0400 Diastolic blood pressure 80 mm[Hg] Agapito Hale MD Work Phone: [facility] 02-09-2022 12:56-0400 Heart rate 79 /min Agapito Hale MD Work Phone: [facility] 02-09-2022 12:56-0400 SaO2% (BldA) [Mass fraction] 97 % Agapito Hale MD Work Phone: [facility] 02-09-2022 12:56-0400 Systolic blood pressure 112 mm[Hg] Agapito Hale MD Work Phone: [facility] Encounters Encounter Date Encounter Type Care Provider Facility Start: 06-12-2025 ambulatory Rustam LANDON Faci lity:[facility] Start: 06-05-2025 ambulatory Rustam LANDON Faci lity:[facility] Start: 05-28-2025 ambulatory Rustam LANDON Faci lity:[facility] Start: 05-16-2025 End: 05-16-2025 Telephone encounter Remi Ruth APRN.CNP Work Phone: [facility] Comment on above: Consult ([facility] / Dr. Donovan Palomares) Start: 05-15-2025 End: 05-15-2025 ambulatory REMILIBBY GRIFFINCCI Facility:[facility] Start: 05-15-2025 Encounter for other preprocedural examination [facility] Start: 05-15-2025 End: 05-15-2025 Patient encounter procedure Remi Ruth APRN.PIG 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 Work Phone: [facility] Comment on above: Pre-op exam (Primary Dx); Primary osteoarthritis of left knee; Pre-diabetes Start: 05-15-2025 End: 05-15-2025 Preprocedural examination done Remi Ruth APRN.PIG 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 Work Phone: [facility] Work Phone: Start: 04-23-2025 End: 04-23-2025 Patient encounter procedure Remi Ruth APRN.PIG 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 Work Phone: [facility] Comment on above: Hospital discharge f ollow-up (Primary Dx); Fungal skin infection; Herpes zoster without complication; Pruritus Start: 04-23-2025 End: 04-23-2025 ambulatory SELF Facility:[facility] Start: 04-11-2025 End: 04-12-2025 Refill Remi Ruth APRN.PIG 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 Work Phone: [facility] Comment on above: Refill Request Start: 04-11-2025 End: 04-11-2025 Telephone encounter Yoon Zhang APRN.PIG 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 Work Phone: [facility] Comment on above: Appointment (Missed appointment) error Start: 04-10-2025 End: 04-10-2025 E-mail encounter from caregiver Yoon Pateljessica BENNETT.MARILEE Work Phone: [facility] Start: 04-10-2025 End: 04-10-2025 Patient encounter procedure Yoon Pateljessica [employer] 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 Work Phone: [facility] Comment on above: X-rays Start: 04-10-2025 End: 04-10-2025 Telephone encounter Yoon Zhang APRN.PIG 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 Work Phone: [facility] Comment on above: Appointment (Vm xray remind for 04-11-25) Start: 04-09-2025 End: 04-09-2025 ambulatory Remi 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 Work Phone: [facility] Start: 04-09-2025 End: 04-09-2025 Follow-up encounter Remi Jonathandenver BENNETT.PIG 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 Work Phone: [facility] Comment on above: ED Follow Up Start: 04-06-2025 End: 04-06-2025 Emergency department patient visit REMI MASTCCI Facility:[facility] Start: 04-05-2025 End: 04-05-2025 Telemedicine consultation with patient Yomi Manzanares [employer] 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 Work Phone: [facility] Comment on above: Eyelid symptom (Prim ivana Dx) Start: 04-05-2025 End: 04-05-2025 ambulatory REMI MASTRUCCI Facility:[facility] Start: 03-22-2025 End: 03-23-2025 ambulatory REMI MASTRUCCI Facility:[facility] Start: 03-21-2025 End: 03-21-2025 ambulatory YOON ZHANG Facility:[id number] Start: 03-20-2025 End: 03-20-2025 Telephone encounter Yoon Zhang [employer] 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 Work Phone: [facility] Comment on above: Appointment (Appt/Xr ay Reminder for 03/21/25) Start: 03-19-2025 End: 03-19-2025 Telephone encounter Yoon Zhang [employer] 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 Work Phone: [facility] Comment on above: Appointment ( xray remind for 03-21-25.) Start: 03-12-2025 End: 03-12-2025 Refill Remi 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 Work Phone: [facility] Comment on above: Refill Request Start: 03-08-2025 End: 03-08-2025 ambulatory Remi 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 Work Phone: [facility] Start: 03-08-2025 End: 03-08-2025 Follow-up encounter Remi 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 Work Phone: [facility] Comment on above: ED Follow Up Start: 03-07-2025 End: 03-07-2025 Emergency department patient visit REMI MASTRUCCI Facility:[facility] Start: 03-06-2025 End: 03-06-2025 Refill Remi 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 Work Phone: [facility] Comment on above: Med Change Request Start: 03-02-2025 End: 03-02-2025 Telephone encounter Tre Serrano MD Work Phone: [facility] Comment on above: NO SHOW (FIRST) Start: 02-15-2025 End: 02-15-2025 ambulatory Remi 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 Work Phone: [facility] Start: 02-15-2025 End: 02-15-2025 Follow-up encounter Remi 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 Work Phone: [facility] Comment on above: ED Follow Up Start: 02-14-2025 End: 02-14-2025 Emergency department patient visit LAURIE COKER Facility:[facility] Start: 02-12-2025 End: 02-13-2025 Follow-up encounter Remi 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 Work Phone: [facility] Comment on above: Results Refill Request Start: 02-12-2025 End: 02-12-2025 Refill Remi 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.MARILEE Work Phone: [facility] Comment on above: Med Change Request Start: 02-12-2025 ambulatory REMI MASTRUCCI Facili ty:[facility] Start: 02-12-2025 End: 02-12-2025 Subsequent hospital visit by physician [facility] [place] [facility] Comment on above: Hematuria, unspecifi ed type [R31.9] Start: 02-12-2025 End: 02-12-2025 Patient encounter procedure Remi 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.MARILEE Work Phone: [facility] Comment on above: Recurrent sinus infe ctions (Primary Dx); Muscle spasm of back; Restless leg syndrome; Intractable migraine without status migrainosus, unspecified migraine type; Hematuria, unspecified type; Flank pain; Pre-diabetes Start: 02-12-2025 End: 02-12-2025 ambulatory REMI MASTRUCCI Facility[facility] Start: 02-09-2025 End: 02-09-2025 Patient encounter procedure Lina Duarte [employer] WORKER.MARILEE Work Phone: [facility] Comment on above: Acute non-recurrent pansinusitis (Primary Dx); Mild intermittent asthma without complication (HCC) Start: 02-09-2025 End: 02-09-2025 ambulatory LINA DUARTE [facility] Start: 02-02-2025 End: 02-02-2025 Refill Remi 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 Work Phone: [facility] Comment on above: Refill Request Start: 01-30-2025 End: 01-30-2025 Refill Remi 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 Work Phone: [facility] Comment on above: Med Change Request Start: 01-29-2025 End: 01-29-2025 ambulatory Remi 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 Work Phone: [facility] Start: 01-29-2025 End: 01-29-2025 Follow-up encounter Remi 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 Work Phone: [facility] Comment on above: ED Follow Up Start: 01-27-2025 End: 01-28-2025 Emergency department patient visit REMI GRIFFINRUCCI Facility:[facility] Start: 01-05-2025 End: 01-05-2025 Refill Remi 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 Work Phone: [facility] Comment on above: Refill Request Start: 01-04-2025 End: 01-05-2025 ambulatory Tre Serrano MD Work Phone: [facility] Comment on above: Steroid medication Start: 01-02-2025 End: 01-02-2025 Refill Remi 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 Work Phone: [facility] Comment on above: Med Change Request Start: 12-29-2024 End: 12-29-2024 Patient encounter procedure Tre Serrano MD Work Phone: [facility] Comment on above: Right wrist tendinit is (Primary Dx); Wrist pain, acute, right Start: 12-29-2024 End: 12-29-2024 ambulatory REMI MASTRUCCI Facility:[facility] Start: 12-21-2024 End: 12-21-2024 Follow-up encounter Remi 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 Work Phone: [facility] Start: 12-21-2024 End: 12-21-2024 ambulatory REMI MASTRUCCI Neurology Comment on above: EMG Start: 12-21-2024 End: 12-21-2024 Patient encounter procedure Emg 1 Neur [place] Moc (Max Weight 400) Neurology Start: 12-20-2024 End: 12-20-2024 Patient encounter procedure Remi 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 Work Phone: [facility] Comment on above: Earache on left (Ana shaniqua Dx); Eczema, unspecified type Start: 12-20-2024 End: 12-20-2024 ambulatory REMI MASTRUCCI Facility[facility] Start: 12-20-2024 End: 12-21-2024 Refill Gurmeet Mya Matiastatianaolivia DO Work Phone: [facility] Comment on above: Refill Request Start: 12-18-2024 End: 12-18-2024 Telephone encounter Remi 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 Work Phone: [facility] Start: 12-11-2024 End: 12-11-2024 Telemedicine consultation with patient Remi 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 Work Phone: [facility] Start: 12-11-2024 End: 12-12-2024 ambulatory Remi 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 Work Phone: [facility] Comment on above: Acute recurrent sinu sitis, unspecified location (Primary Dx) Start: 12-08-2024 End: 12-08-2024 Refill Remi 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 Work Phone: [facility] Comment on above: Med Change Request Start: 11-30-2024 ambulatory REMI MASTRUCCI Facili ty:[facility] Start: 11-30-2024 End: 11-30-2024 Subsequent hospital visit by physician Xr [facility] Comment on above: Wrist pain, acute, r ight [M25.531] Start: 11-30-2024 End: 11-30-2024 Nursing evaluation of patient and report Nurse Intm Moise W Market Work Phone: [facility] Comment on above: Vitamin B 12 deficie ncy (Primary Dx) Start: 11-30-2024 End: 11-30-2024 ambulatory REMI MASTRUCCI Facility:[facility] Start: 11-21-2024 End: 11-21-2024 Telephone encounter Remi 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 Work Phone: [facility] Comment on above: Consult (Orthopaedic s) Start: 11-21-2024 End: 11-21-2024 Telemedicine consultation with patient Remi Ruth APRN.PIG 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 Work Phone: [facility] Start: 11-21-2024 End: 11-21-2024 ambulatory Remi Fernandezcci CEMENT AND CONCRETE PLANT 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 Work Phone: [facility] Comment on above: Wrist pain, acute, r ight (Primary Dx) Start: 11-13-2024 End: 11-13-2024 Telephone encounter Remi Fernandezcci CEMENT AND CONCRETE PLANT 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 Work Phone: [facility] Comment on above: Results Start: 11-09-2024 End: 11-09-2024 Patient encounter procedure Remi Fernandezcci CEMENT AND CONCRETE PLANT 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 Work Phone: [facility] Comment on above: Acute non-recurrent sinusitis, unspecified location (Primary Dx); Multiple joint pain Start: 11-09-2024 End: 11-09-2024 ambulatory REMI MASTRUCCI Facility[facility] Start: 10-20-2024 End: 10-20-2024 Telephone encounter Remi Fernandezcci CEMENT AND CONCRETE PLANT 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 Work Phone: [facility] Comment on above: Results Start: 10-19-2024 End: 10-19-2024 Patient encounter procedure Remi Fernandezcci CEMENT AND CONCRETE PLANT 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 Work Phone: [facility] Comment on above: Intractable headache , unspecified chronicity pattern, unspecified headache type (Primary Dx); Eczema, unspecified type; Erectile dysfunction, unspecified erectile dysfunction type; Vitamin B 12 deficiency; Vitamin D deficiency; Anxiety and depression Start: 10-19-2024 End: 10-19-2024 ambulatory REMI MASTRUCCI Facility[facility] Start: 10-12-2024 End: 10-12-2024 ambulatory REMI MASTRUCCI Facility[facility] Start: 10-12-2024 End: 10-12-2024 Patient encounter procedure Remi Fernandezcci CEMENT AND CONCRETE PLANT 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 Work Phone: [facility] Comment on above: Upper respiratory tr act infection, unspecified type (Primary Dx) Start: 10-05-2024 End: 10-05-2024 Social Work [facility] Comment on above: Financial difficulti es (Primary Dx); Needs assistance with community resources; Housing instability due to housing cost burden Start: 09-27-2024 End: 10-02-2024 Telephone encounter Remi Griffinjocelyncci CEMENT AND CONCRETE PLANT 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 Work Phone: [facility] Comment on above: Orders Start: 09-22-2024 End: 09-22-2024 Social Work Cristin [facility] Comment on above: Financial difficulti es (Primary Dx); Needs assistance with community resources; Housing problems Start: 09-20-2024 End: 09-20-2024 Patient encounter procedure Remi Griffinjocelyncci CEMENT AND CONCRETE PLANT 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 Work Phone: [facility] Comment on above: Wellness examination (Primary Dx) Start: 09-20-2024 End: 09-20-2024 Patient encounter status Remi Zoraidai CEMENT AND CONCRETE PLANT 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 Work Phone: [facility] Work Phone: Start: 09-20-2024 End: 09-20-2024 ambulatory [facility] Facility[facility] Start: 09-20-2024 Encounter for genera l adult medical examination without abnormal findings [facility] Start: 08-27-2024 End: 08-28-20[facility] C[facility] AND CONCRETE PLANT 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 Work Phone: [facility] Comment on above: Refill Request Start: 08-23-2024 End: 08-23-2024 Patient encounter procedure Remi Zoraidai CEMENT AND CONCRETE PLANT 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 Work Phone: [facility] Comment on above: Visit for suture rem oval (Primary Dx); Other fatigue Start: 08-23-2024 End: 08-23-2024 ambulatory SELF Facility:[facility] Start: 08-21-2024 End: 08-21-2024 ambulatory Remi 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.MARILEE Work Phone: [facility] Start: 08-21-2024 End: 08-21-2024 Follow-up encounter Remi 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 Work Phone: [facility] Comment on above: ED Follow Up Start: 08-18-2024 End: 08-18-2024 Emergency department patient visit REMILIBBY FERNANDEZCCI Facility:[facility] Start: 08-08-2024 End: 08-08-2024 Office outpatient visit 25 minutes Gurmeet Finn DO Work Phone: [facility] Comment on above: Anxiety and depressi on (Primary Dx); Muscle spasm of back; Restless leg syndrome; COVID-19 vaccine administered Start: 08-08-2024 End: 08-08-2024 Telephone encounter Remi 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.MARILEE Work Phone: [facility] Comment on above: Missed Appointment ( 08/07/2024 at 1:20 pm for ER follow up 2ND NO SHOW) Start: 08-08-2024 End: 08-08-2024 ambulatory GURMEET FINN Facility:[facility] Start: 08-05-2024 End: 08-07-2024 Refill Remi 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.MARILEE Work Phone: [facility] Comment on above: Med Change Request Start: 08-02-2024 End: 08-02-2024 ambulatory Remi 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.MARILEE Work Phone: [facility] Start: 08-02-2024 End: 08-02-2024 Follow-up encounter Remi 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.MARILEE Work Phone: [facility] Comment on above: ED Follow Up Start: 08-02-2024 End: 08-02-2024 Telephone encounter Remi Ruth APRN.PIG 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 Work Phone: [facility] Comment on above: Missed Appointment ( 08/01/2024 at 9:20 am for follow up on medication 1ST NO SHOW) Start: 07-31-2024 End: 07-31-2024 Admission to establishment Genoveva Hart RN [facility] Start: 07-31-2024 End: 07-31-2024 ambulatory Genoveva Hart RN [facility] Int[facility] Comment on above: Psychiatric Problem Start: 07-31-2024 End: 08-01-2024 Emergency department patient visit MAYO POWERS Facility:[facility] Start: 07-17-2024 End: 07-17-2024 Telephone encounter Caleb Garza DC Work Phone: [facility] Comment on above: Returning Patient's Call Start: 07-14-2024 End: 07-14-2024 Telephone encounter Lalo Sloan MD, PhD Work Phone: [facility] Comment on above: Appointment Returning Patient's Call Start: 07-13-2024 End: 07-13-2024 Patient encounter procedure Remi Ruth APRN.PIG 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 Work Phone: [facility] Comment on above: Acute left-sided low back pain without sciatica (Primary Dx); Encounter for immunization; Anxiety and depression; Herpes zoster with complication Start: 07-13-2024 End: 07-13-2024 ambulatory SELF Facility[facility] Start: 06-22-2024 End: 06-22-2024 Telephone encounter Remi Ruth APRN.PIG 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 Work Phone: [facility] Comment on above: Results Start: 06-22-2024 End: 06-22-2024 ambulatory REMI MASTRUCCI Facility[facility] Start: 06-22-2024 End: 06-22-2024 Subsequent hospital visit by physician [facility] Comment on above: Acute left-sided low back pain without sciatica [M54.50] Start: 06-21-2024 End: 06-21-2024 Office outpatient visit 15 minutes Dolly Rodas MD Work Phone: [facility] Comment on above: Acute left-sided low back pain without sciatica (Primary Dx) Start: 06-21-2024 End: 06-21-2024 ambulatory DOLLY RODAS Facility:[facility] Start: 06-09-2024 End: 06-09-2024 Patient encounter procedure Remi 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 Work Phone: [facility] Comment on above: Dermatitis (Primary Dx); Rash Start: 06-09-2024 End: 06-09-2024 ambulatory SELF Facility:[facility] Start: 05-31-2024 End: 05-31-2024 Patient encounter procedure Remi 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 Work Phone: [facility] Comment on above: Encounter to [facility] (Primary Dx); Sinus congestion; Rash; Intractable migraine without status migrainosus, unspecified migraine type; Obesity, Class II, BMI 35-39.9; Vitamin D deficiency; Pre-diabetes; Dyslipidemia; Prostate cancer screening; Colon cancer screening; B12 deficiency Start: 05-31-2024 End: 05-31-2024 ambulatory SELF Facility[facility] Start: 05-23-2024 End: 05-23-2024 Refill Remi 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 Work Phone: [facility] Comment on above: Refill Request Start: 05-23-2024 End: 05-23-2024 Office outpatient visit 15 minutes Bennie Ballesteros PA-C Work Phone: [facility] Comment on above: Acute non-recurrent maxillary sinusitis (Primary Dx); Dermatitis Start: 05-22-2024 End: 05-22-2024 ambulatory DEVON JAMES JR Facility:[facility] Start: 05-22-2024 End: 05-22-2024 Telemedicine consultation with patient Gabriel Tyler PA-C Work Phone: [facility] Comment on above: Treatment not availa ble (Primary Dx) Start: 04-16-2024 End: 04-16-2024 ambulatory DEVON JAMES JR Facility:[facility] Start: 04-16-2024 End: 04-16-2024 Telemedicine consultation with patient Елена Bustillos SADIA Work Phone: [facility] Comment on above: COVID-19 virus infec tion (Primary Dx) Start: 03-09-2024 End: 03-09-2024 Office outpatient visit 15 minutes Elmira Swartz APRN.CNP Work Phone: [facility] Comment on above: Viral URI with cough (Primary Dx) Start: 02-25-2024 End: 02-25-2024 Patient encounter procedure Brenda Swain PA-C Work Phone: [facility] Comment on above: Rash (Primary Dx); Nasal congestion; Left ear pain Start: 01-19-2024 Patient encounter procedure [facility] Provider [facility] Start: 12-23-2023 End: 12-23-2023 Patient encounter procedure Brenda Swain PA-C Work Phone: [facility] Comment on above: Acute otitis media, left (Primary Dx); Acute otitis externa of left ear, unspecified type; Left ear pain Start: 12-22-2023 Refill Elmira Polo PA-C Work Phone: [facility] Comment on above: Refill Request Start: 09-20-2023 Refill Elmira Polo PA-C Work Phone: [facility] Comment on above: Refill Request Start: 08-17-2023 Telephone encounter Kristopher crawley PA-C Work Phone: [facility] Start: 08-17-2023 End: 08-17-2023 Patient encounter procedure Remi Ruth APRN.PIG MACHINE CRANE OPERATOR Work Phone: [facility] Comment on above: Acute cough (Primary Dx); Sore throat; Mild intermittent asthma without complication; Chest congestion Start: 08-04-2023 Telephone encounter Devon James MD Work Phone: [facility] Comment on above: Referral Request (EN T) Start: 07-19-2023 End: 07-19-2023 Patient encounter procedure Devon James MD Work Phone: [facility] Comment on above: Bacterial sinusitis (Primary Dx) Start: 07-12-2023 End: 07-12-2023 Patient encounter procedure Elmira Polo PA-C Work Phone: [facility] Comment on above: Acute non-recurrent sinusitis, unspecified location (Primary Dx); Eczema of lower extremity Start: 05-13-2023 Telephone encounter Kristopher crawley PA-C Work Phone: [facility] Comment on above: Question Start: 05-13-2023 End: 05-13-2023 Patient encounter procedure Kristopher Toussaint PA-C Work Phone: [facility] Comment on above: Post-traumatic osteo arthritis of left knee (Primary Dx); Chronic pain of left knee Start: 04-22-2023 Telephone encounter Ag Orth Work Phone: [facility] Comment on above: Appointment (Patient called and wants to be seen following an emergency room visit for his left knee) Start: 04-01-2023 Telephone encounter Devon James MD Work Phone: [facility] Comment on above: Referral Request (Or tho) Start: 03-31-2023 End: 03-31-2023 Patient encounter procedure Devon James MD Work Phone: [facility] Comment on above: Chronic pain of left knee (Primary Dx) Start: 02-04-2023 Refill Agapito Hightower Work Phone: [facility] Comment on above: Refill Request Start: 02-02-2023 End: 02-02-2023 Patient encounter procedure Elmira Polo PA-C Work Phone: [facility] Comment on above: Eczema, unspecified type (Primary Dx); Intractable migraine without status migrainosus, unspecified migraine type; Anxiety and depression Start: 02-02-2023 Telephone encounter Elmira henderson PA-C Work Phone: [facility] Comment on above: Consult (DERMATOLOGY #[id number]) Start: 01-01-2023 Telephone encounter Devon James MD Work Phone: [facility] Comment on above: Appointment Start: 12-15-2022 Telephone encounter Tre Serrano MD Work Phone: [facility] Comment on above: Durable Medical Equi pment Start: 12-08-2022 End: 12-08-2022 Patient encounter procedure Elmira Polo PA-C Work Phone: [facility] Comment on above: Moderate asthma, uns pecified whether complicated, unspecified whether persistent (Primary Dx); Eczema, unspecified type; Acute left-sided low back pain without sciatica; Acute recurrent maxillary sinusitis Start: 11-17-2022 ambulatory Devon James MD Work Phone: [employer] Start: 11-16-2022 Refill Devon James MD Work Phone: [facility] Comment on above: Refill Request Start: 10-05-2022 End: 10-05-2022 Patient encounter procedure Devon James MD Work Phone: [facility] Comment on above: Encounter for immuni zation (Primary Dx); Intractable migraine without status migrainosus, unspecified migraine type; Bacterial sinusitis Start: 09-01-2022 Telemedicine consult ation with patient Devon James MD Work Phone: [facility] Start: 08-31-2022 Telephone encounter Devon James MD Work Phone: [facility] Comment on above: Medication Request Start: 08-25-2022 ambulatory Devon James MD Work Phone: [facility] [employer] Start: 08-25-2022 End: 08-25-2022 Subsequent hospital visit by physician Card Lab Stress [facility] Comment on above: Syncope, unspecified syncope type [R55] Start: 08-18-2022 Telephone encounter Lina crawford APRN.PIG MACHINE CRANE OPERATOR Work Phone: [facility] Comment on above: Consult (PHYSICAL TH ERAPY) Start: 08-18-2022 End: 08-18-2022 Patient encounter procedure Tre Serrano MD Work Phone: [facility] Comment on above: Contusion of right k nee, initial encounter (Primary Dx); Patellar dislocation, right, initial encounter Start: 08-14-2022 End: 08-14-2022 Patient encounter procedure Avelina Matias MD Work Phone: [facility] Comment on above: Syncope, unspecified syncope type (Primary Dx); Benign paroxysmal positional vertigo of left ear; Injury of right knee, subsequent encounter; Chronic pain of left knee; Diarrhea, unspecified type Start: 08-13-2022 Telephone encounter Ag Orth Work Phone: [facility] Comment on above: Knee Pain Start: 08-11-2022 Refill Agapito Hightower Work Phone: [facility] Comment on above: Refill Request; Refi ll Request Start: 08-11-2022 Telephone encounter Lina crawford APRN.PIG MACHINE CRANE OPERATOR Work Phone: [facility] Comment on above: Consult (GASTROENTER OLOGY) Start: 08-10-2022 End: 08-10-2022 Patient encounter procedure Lina Duarte APRN.PIG MACHINE CRANE OPERATOR Work Phone: [facility] Comment on above: Left sided abdominal pain (Primary Dx); Nausea; Colon cancer screening; Bowel habit changes; Diverticulosis Start: 07-21-2022 Telephone encounter Tre Serrano MD Work Phone: [facility] Comment on above: Appointment Reschedu led Start: 07-08-2022 Telephone encounter Tre Serrano MD Work Phone: [facility] Comment on above: Left Knee Pain Appointment Refill Request Start: 07-07-2022 Refill Agapito Hightower Work Phone: [facility] Comment on above: Refill Request Start: 07-07-2022 Refill Agapito Hightower Work Phone: [facility] Comment on above: Refill Request; Refi ll Request Start: 07-03-2022 Telephone encounter Tre Serrano MD Work Phone: [facility] Comment on above: Insurance Authorizat ion Start: 07-02-2022 End: 07-02-2022 Patient encounter procedure Tre Serrano MD Work Phone: [facility] Comment on above: Post-traumatic osteo arthritis of left knee (Primary Dx); Class 3 severe obesity due to excess calories with serious comorbidity and body mass index (BMI) of 40.0 to 44.9 in adult (HCC) Start: 06-19-2022 End: 06-19-2022 Patient encounter procedure Devon James MD Work Phone: [facility] Comment on above: Bacterial sinusitis (Primary Dx) Start: 06-18-2022 Telephone encounter Devon James MD Work Phone: [facility] Comment on above: Illness Start: 06-17-2022 End: 06-17-2022 Patient encounter procedure Melissa Mae APRN.PIG MACHINE CRANE OPERATOR Work Phone: [facility] Comment on above: Viral URI with cough (Primary Dx) Start: 04-23-2022 End: 04-23-2022 Patient encounter procedure Elmira Swartz APRN.PIG MACHINE CRANE OPERATOR Work Phone: [facility] Comment on above: Middle ear effusion, left (Primary Dx) Start: 04-13-2022 End: 04-13-2022 Patient encounter procedure Avelina Matias MD Work Phone: [facility] Comment on above: Intractable migraine without aura and without status migrainosus (Primary Dx); Right facial pain Start: 04-06-2022 End: 04-06-2022 Patient encounter procedure Devon James MD Work Phone: [facility] Comment on above: Bacterial sinusitis (Primary Dx); Seasonal allergic rhinitis, unspecified trigger; Obesity, Class III, BMI >= 40 E66.01; Wellness examination Start: 04-06-2022 End: 04-06-2022 Patient encounter status Devon James MD Work Phone: [facility] Start: 03-25-2022 ambulatory Agapito Hightower Work Phone: [facility] Start: 03-25-2022 Telephone encounter Agapito carbajal MD Work Phone: [facility] Comment on above: Opened In Error Transition Of Care ( D/C FROM [facility] ON 03/24/2022 FOR URDenver SX ) Start: 03-13-2022 End: 03-13-2022 Patient encounter procedure Reba Kincaid PA-C Work Phone: [facility] Comment on above: Acute non-recurrent maxillary sinusitis (Primary Dx) Start: 03-09-2022 End: 03-09-2022 Patient encounter procedure Tre Serrano MD Work Phone: [facility] Comment on above: Post-traumatic osteo arthritis of left knee (Primary Dx) Start: 02-27-2022 End: 02-27-2022 Patient encounter procedure Tre Serrano MD Work Phone: [facility] Comment on above: Post-traumatic osteo arthritis of left knee (Primary Dx) Start: 02-20-2022 End: 02-20-2022 Patient encounter procedure Tre Serrano MD Work Phone: [facility] Comment on above: Post-traumatic osteo arthritis of left knee (Primary Dx) Start: 02-09-2022 End: 02-09-2022 Patient encounter procedure Agapito Hale MD Work Phone: [facility] Comment on above: Bile salt-induced di arrhea (Primary Dx); Fungal dermatitis; Chronic pain of left knee; Recurrent sinus infections; Obesity, morbid, BMI 40.0-49.9 ([facility]) Procedures Date Procedure Procedure Detail Performing Clinician Start: 02-12-2025 Ct abdomen & pelvis w/o contrast material Remi 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 Work Phone: Start: 12-21-2024 Nerve conduction studies 5-6 studies Remi 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 Work Phone: Start: 11-30-2024 Radex wrist complete minimum 3 views Remi 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 Work Phone: Start: 08-08-2024 [employer] COVID-19 VACCINE AGE 12+ YR (COMIRNATY) Gurmeet Finn DO Work Phone: Start: 06-22-2024 Lipid 1996 panel - Serum or Plasma Remi 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 Work Phone: Start: 05-13-2023 Arthrocentesis aspir&/inj major jt/bursa w/o us Kristopher Toussaint PA-C Work Phone: Start: 12-08-2022 Lipid 1996 panel - Serum or Plasma Devon James Jr., MD Work Phone: Start: 10-05-2022 INFLUENZA VACCINE QUADRIVALENT 6 MO - 64 YRS IM Devon James MD Work Phone: Start: 08-25-2022 Duplex scan extracranial art compl bi study Avelina Matias MD Work Phone: Start: 08-18-2022 Radiologic examination knee 3 views Tre Serrano MD Work Phone: Start: 07-02-2022 Arthrocentesis aspir&/inj major jt/bursa w/o us Tre Serrano MD Work Phone: Start: 03-09-2022 Arthrocentesis aspir&/inj major jt/bursa w/o us Tre Serrano MD Work Phone: Start: 02-27-2022 Arthrocentesis aspir&/inj major jt/bursa w/o us Tre Serrano MD Work Phone: Start: 02-20-2022 Arthrocentesis aspir&/inj major jt/bursa w/o us Tre Serrano MD Work Phone: Start: 04-30-2020 End: 05-15-2025 History of operative procedure on knee S/P left knee surgery Agapito Hale MD Work Phone: Plan of Treatment Date Care Activity Detail Author Start: 03-03-2031 Urine microalbumin profile [facility] Start: 06-22-2029 Lipid panel Lipid Screening [facility] Start: 02-15-2028 Diabetes Screening Diabetes Screenin [facility] Start: 02-13-2028 [facility] Start: 12-08-2027 Lipid 1996 panel - Serum or Plasma Lipid Screening [facility] Start: 12-08-2027 Lipid panel Lipid Screening [facility] Start: 12-08-2027 LIPID SCREEN LIPID SCREEN [facility] Start: 07-31-2027 Diabetes Screening Diabetes Screenin g [facility] Start: 06-22-2027 Diabetes Screening Diabetes Screenin g [facility] Start: 10-02-2026 Diabetes Screening Diabetes Screenin g [facility] Start: 05-15-2026 Annual PCP Team Duck Bill Operator marla Disease Visit Annual PCP Team Chronic Disease Visit [facility] Start: 04-23-2026 Annual PCP Team Duck Bill Operator marla Disease Visit Annual PCP Team Chronic Disease Visit [facility] Start: 03-22-2026 Annual PCP Team Duck Bill Operator marla Disease Visit Annual PCP Team Chronic Disease Visit [facility] Start: 02-15-2026 DIABETES SCREEN DIABETES SCREEN [facility] Start: 02-15-2026 Diabetes Screening Diabetes Screenin g [facility] Start: 02-12-2026 Annual PCP Team Duck Bill Operator marla Disease Visit Annual PCP Team Chronic Disease Visit [facility] Start: 02-09-2026 Annual PCP Team Duck Bill Operator marla Disease Visit Annual PCP Team Chronic Disease Visit [facility] Start: 12-31-2025 DIABETES SCREEN DIABETES SCREEN [facility] Start: 12-20-2025 Annual PCP Team Duck Bill Operator marla Disease Visit Annual PCP Team Chronic Disease Visit [facility] Start: 12-11-2025 Annual PCP Team Duck Bill Operator marla Disease Visit Annual PCP Team Chronic Disease Visit [facility] Start: 12-08-2025 DIABETES SCREEN DIABETES SCREEN [facility] Start: 12-07-2025 LIPID SCREEN LIPID SCREEN [facility] Start: 11-21-2025 Annual PCP Team Duck Bill Operator marla Disease Visit Annual PCP Team Chronic Disease Visit [facility] Start: 11-09-2025 Annual PCP Team Duck Bill Operator marla Disease Visit Annual PCP Team Chronic Disease Visit [facility] Start: 10-19-2025 Annual PCP Team Duck Bill Operator marla Disease Visit Annual PCP Team Chronic Disease Visit [facility] Start: 10-12-2025 Annual PCP Team Duck Bill Operator marla Disease Visit Annual PCP Team Chronic Disease Visit [facility] Start: 09-20-2025 Annual PCP Team Duck Bill Operator marla Disease Visit Annual PCP Team Chronic Disease Visit [facility] Start: 08-23-2025 Annual PCP Team Duck Bill Operator marla Disease Visit Annual PCP Team Chronic Disease Visit [facility] Start: 08-12-2025 DIABETES SCREEN DIABETES SCREEN [facility] Start: 08-08-2025 Annual PCP Team Duck Bill Operator marla Disease Visit Annual PCP Team Chronic Disease Visit [facility] Start: 08-05-2025 DIABETES SCREEN DIABETES SCREEN [facility] Start: 07-13-2025 Annual PCP Team Duck Bill Operator marla Disease Visit Annual PCP Team Chronic Disease Visit [facility] Start: 07-13-2025 Hepatitis A Vaccine (2 of 2 - Risk 2-dose series) Hepatitis A Vaccine (2 of 2 - Risk 2-dose series) [facility] Comment on above: Postponed from 07/30 (Declined at this time) Start: 07-13-2025 Hepatitis B Vaccine (2 of 3 - 19+ 3-dose series) Hepatitis B Vaccine (2 of 3 - 19+ 3-dose series) [facility] Comment on above: Postponed from 02/24 (Declined at this time) Start: 09-01-2025 Influenza vaccination Influenza Vacc ine (#1) [facility] Start: 06-21-2025 Annual PCP Team Duck Bill Operator marla Disease Visit Annual PCP Team Chronic Disease Visit [facility] Start: 06-09-2025 Annual PCP Team Duck Bill Operator marla Disease Visit Annual PCP Team Chronic Disease Visit [facility] Start: 05-31-2025 Annual PCP Team Duck Bill Operator marla Disease Visit Annual PCP Team Chronic Disease Visit [facility] Start: 05-31-2025 Covid-19 Vaccine () Covid-19 Vaccine () [facility] Comment on above: Postponed from 07/02 (Declined at this time) Start: 05-31-2025 Pneumococcal vaccination Pneumococcal Vaccine (2 of 2 - PCV) [facility] Comment on above: Postponed from 01/20 (Declined at this time) Start: 05-15-2025 End: 05-15-2025 Patient encounter procedure 05/15/2025 10:40 AM EDT Office Visit [address] [address] Remi Ruth, 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 [address] [place] [id number] 3 Month Follow-up [facility] Comment on above: 3 Month Follow-up Start: 04-23-2025 End: 04-23-2025 Patient encounter procedure 04/23/2025 4:00 PM EDT Office Visit [address] [address] Remi Ruth, [employer] 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 [address] [place] [id number] ER Follow up/ on 04/06/25 [facility] Comment on above: ER Follow up/ on 04/06 Start: 04-11-2025 End: 04-11-2025 Patient encounter procedure 04/11/2025 11:15 AM EDT Office Visit [facility] [address] [address] Yoon Zhang, [employer] 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 [address] [facility] [place] [address] Right Pinky Pain [facility] Comment on above: Right Pinky Pain Start: 03-24-2025 DIABETES SCREEN DIABETES SCREEN [facility] Start: 03-21-2025 End: 03-21-2025 Patient encounter procedure 03/21/2025 9:30 AM EDT Office Visit [facility] [address] [place] [address] DR YATES [facility] [address] [place] [address] Yoon Zhang, [employer] 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 [address] [place] [address] Right Pinky Pain [facility] Comment on above: Right Pinky Pain Start: 03-20-2025 End: 03-20-2025 Patient encounter procedure 03/20/2025 11:40 AM EDT Office Visit [facility] [address] [place] [address] Remi Ruth, [employer] 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 [address] [place] [address] Ear infection [facility] Comment on above: Ear infection Start: 03-02-2025 End: 03-02-2025 Patient encounter procedure 03/02/2025 1:15 PM EDT Office Visit [facility] [address] [place] [address] Tre Serrano MD [address] [place] [address] RIGHT WRIST PAIN FU [facility] Comment on above: RIGHT WRIST PAIN FU Start: 02-26-2025 End: 02-26-2025 ambulatory [facility] Comment on above: Right Hand Left Knee Start: 02-12-2025 End: 02-12-2025 Patient encounter procedure 02/12/2025 9:40 AM EDT Office Visit [facility] [address] [place] [address] Remi Ruth APRN.PIG MACHINE CRANE OPERATOR [address] [place] [address] med review [facility] Comment on above: med review Start: 12-29-2024 End: 12-29-2024 Patient encounter procedure 12/29/2024 3:00 PM EST Office Visit [facility] [address] [place] [address] Tre Serrano MD [address] [place] [address] Left wrist pain [facility] Comment on above: Left wrist pain Start: 12-27-2024 DIABETES SCREEN DIABETES SCREEN [facility] Start: 12-21-2024 End: 12-21-2024 ambulatory Neurology Comment on above: Wrist pain, acute, r ight [M25.531] r R CTS Start: 12-11-2024 End: 12-11-2024 Patient encounter procedure 12/11/2024 10:45 AM EST Office Visit [facility] [address] [place] [address] Tre Serrano MD [address] [place] [address] Righ wrist pain F/U X-ray [facility] Comment on above: Righ wrist pain F/U X-ray Start: 12-04-2024 End: 12-04-2024 Patient encounter procedure 12/04/2024 10:45 AM EST Office Visit [facility] [address] [place] [address] Tre Serrano MD [address] [place] [address] est patient new issue- Righ wrist pain [facility] Comment on above: est patient new issu e- Righ wrist pain Start: 11-09-2024 End: 02-08-2025 JACK BY IFA WITH REFLEX [facility] Work Phone: Comment on above: Expected: 11/09/2024 , Expires: 02/08/2025 Start: 11-09-2024 End: 02-08-2025 Erythrocyte sedimentation rate [facility] Comment on above: Expected: 11/09/2024 , Expires: 02/08/2025 Start: 11-09-2024 End: 02-08-2025 Rheumatoid factor [Units/volume] in Serum or Plasma [facility] Comment on above: Expected: 11/09/2024 , Expires: 02/08/2025 Start: 10-19-2024 End: 01-18-2025 Testosterone [Mass/volume] in Serum or Plasma [facility] Work Phone: Comment on above: Expected: 10/19/2024 , Expires: 01/18/2025 Start: 09-08-2024 End: 09-08-2024 Patient encounter procedure 09/08/2024 10:40 AM EST Office Visit [facility] [address] [place], [place] [id number] Remi Ruth APRN.PIG MACHINE CRANE OPERATOR [address] [place] [address] 1 Month Follow-up [facility] Comment on above: 1 Month Follow-up Start: 08-17-2024 Annual PCP Team Duck Bill Operator marla Disease Visit Annual PCP Team Chronic Disease Visit [facility] Start: 08-11-2024 End: 08-11-2024 Patient encounter procedure [facility] Comment on above: New Patient ok per [facility] 10/12/24-N ew Patient ok per LS Start: 08-07-2024 End: 08-07-2024 Patient encounter procedure [facility] Comment on above: FOLLOW UP PER PT REQ UEST ER follow up/FOLLOW UP PER PT REQUEST Start: 08-04-2024 Annual PCP Team Duck Bill Operator marla Disease Visit Annual PCP Team Chronic Disease Visit [facility] Start: 08-01-2024 End: 08-01-2024 Patient encounter procedure 08/01/2024 9:20 AM EDT Office Visit [facility] [address] [place] [address] Remi Ruth APRN.PIG MACHINE CRANE OPERATOR [address] [place] [address] medication-follow up [facility] Comment on above: medication-follow up Start: 07-21-2024 End: 07-21-2024 Patient encounter procedure 07/21/2024 1:20 PM EDT Office Visit [facility] [address] [place], [place] [address] Dolly Rodas MD [address] [place] [address] 1 mo [facility] Comment on above: 1 mo Start: 07-19-2024 Annual PCP Team Duck Bill Operator marla Disease Visit Annual PCP Team Chronic Disease Visit [facility] Start: 07-02-2024 Covid-19 Vaccine ( season) Covid-19 Vaccine ( season) [facility] Start: 07-02-2024 Covid-19 Vaccine ( season) Covid-19 Vaccine ( season) [facility] Start: 07-02-2024 Influenza vaccination [facility] Start: 05-31-2024 End: 08-30-2024 25-hydroxyvitamin D3 [Mass/volume] in Serum or Plasma VITAMIN D 25 HYDROXY Lab Routine Vitamin D deficiency Expected: 05/31/2024, Expires: 08/30/2024 [facility] Comment on above: Expected: 05/31/2024 , Expires: 08/30/2024 Start: 05-31-2024 End: 08-30-2024 CBC W Auto Differential panel - Blood COMPLETE BLOOD COUNT AND DIFFERENTIAL Lab Routine Dyslipidemia Expected: 05/31/2024, Expires: 08/30/2024 [facility] Work Phone: Comment on above: Expected: 05/31/2024 , Expires: 08/30/2024 Start: 05-31-2024 End: 08-30-2024 Cobalamin (Vitamin B12) [Mass/volume] in Serum or Plasma VITAMIN B12 Lab Routine B12 deficiency Expected: 05/31/2024, Expires: 08/30/2024 [facility] Comment on above: Expected: 05/31/2024 , Expires: 08/30/2024 Start: 05-31-2024 End: 08-30-2024 Comprehensive metabolic 2000 panel - Serum or Plasma COMPREHENSIVE METABOLIC PANEL Lab Routine Pre-diabetes Dyslipidemia Expected: 05/31/2024, Expires: 08/30/2024 [facility] Comment on above: Expected: 05/31/2024 , Expires: 08/30/2024 Start: 05-31-2024 End: 08-30-2024 Hemoglobin A1c in Blood HEMOGLOBIN A1C Lab Routine Pre-diabetes Expected: 05/31/2024, Expires: 08/30/2024 [facility] Comment on above: Expected: 05/31/2024 , Expires: 08/30/2024 Start: 05-31-2024 End: 08-30-2024 Lipid 1996 panel - Serum or Plasma LIPID PANEL BASIC Lab Routine Dyslipidemia Expected: 05/31/2024, Expires: 08/30/2024 [facility] Comment on above: Expected: 05/31/2024 , Expires: 08/30/2024 Start: 05-31-2024 End: 08-30-2024 PSA/PROSTATE SPECIFIC ANTIGEN SCREENING PSA/PROSTATE SPECIFIC ANTIGEN SCREENING Lab Routine Prostate cancer screening Expected: 05/31/2024, Expires: 08/30/2024 [facility] Comment on above: Expected: 05/31/2024 , Expires: 08/30/2024 Start: 05-31-2024 End: 08-30-2024 Thyrotropin [Units/volume] in Serum or Plasma THYROID STIMULATING HORMONE Lab Routine Dyslipidemia Expected: 05/31/2024, Expires: 08/30/2024 [facility] Comment on above: Expected: 05/31/2024 , Expires: 08/30/2024 Start: 05-31-2024 End: 05-31-2024 Patient encounter procedure 05/31/2024 9:40 AM EDT Office Visit [facility] [address] [place] [address] Remi Ruth APRN.PIG MACHINE CRANE OPERATOR [address] [place] [address] [facility] Comment on above: [facility] Start: 03-31-2024 ANNUAL PCP TEAM HYDROGEN OPERATOR MARLA DISEASE VISIT ANNUAL PCP TEAM CHRONIC DISEASE VISIT [facility] Start: 02-03-2024 ANNUAL PCP TEAM HYDROGEN OPERATOR MARLA DISEASE VISIT ANNUAL PCP TEAM CHRONIC DISEASE VISIT [facility] Start: 12-08-2023 ANNUAL PCP TEAM HYDROGEN OPERATOR MARLA DISEASE VISIT ANNUAL PCP TEAM CHRONIC DISEASE VISIT [facility] Start: 10-05-2023 ANNUAL PCP TEAM HYDROGEN OPERATOR MARLA DISEASE VISIT ANNUAL PCP TEAM CHRONIC DISEASE VISIT [facility] Start: 08-17-2023 End: 08-31-2023 COVID & INFLUENZA A/B & RSV NAAT, ROUTINE COVID & INFLUENZA A/B & RSV NAAT, ROUTINE Microbiology Routine Acute cough Sore throat Expected: 08/17/2023, Expires: 08/31/2023 [facility] Work Phone: Comment on above: Expected: 08/17/2023 , Expires: 08/31/2023 Start: 08-14-2023 ANNUAL PCP TEAM HYDROGEN OPERATOR MARLA DISEASE VISIT ANNUAL PCP TEAM CHRONIC DISEASE VISIT [facility] Start: 08-10-2023 ANNUAL PCP TEAM HYDROGEN OPERATOR MARLA DISEASE VISIT ANNUAL PCP TEAM CHRONIC DISEASE VISIT [facility] Start: 07-02-2023 Covid-19 Vaccine ( season) Covid-19 Vaccine ( season) [facility] Start: 07-02-2023 Influenza vaccination [facility] Start: 06-19-2023 ANNUAL PCP TEAM HYDROGEN OPERATOR MARLA DISEASE VISIT ANNUAL PCP TEAM CHRONIC DISEASE VISIT [facility] Start: 04-13-2023 ANNUAL PCP TEAM HYDROGEN OPERATOR MARLA DISEASE VISIT ANNUAL PCP TEAM CHRONIC DISEASE VISIT [facility] Start: 04-06-2023 ANNUAL PCP TEAM HYDROGEN OPERATOR MARLA DISEASE VISIT ANNUAL PCP TEAM CHRONIC DISEASE VISIT [facility] Start: 02-09-2023 ANNUAL PCP TEAM HYDROGEN OPERATOR MARLA DISEASE VISIT ANNUAL PCP TEAM CHRONIC DISEASE VISIT [facility] Start: 11-17-2022 End: 01-17-2023 Hemoglobin A1c in Blood HGB A1C Lab Routine Obesity, morbid, BMI 40.0-49.9 (HCC) Expected: 11/17/2022, Expires: 01/17/2023 [facility] Work Phone: Comment on above: Expected: 11/17/2022 , Expires: 01/17/2023 Start: 11-17-2022 End: 01-17-2023 Lipid 1996 panel - Serum or Plasma LIPID PANEL BASIC Lab Routine Medication management Expected: 11/17/2022, Expires: 01/17/2023 [facility] Work Phone: Comment on above: Expected: 11/17/2022 , Expires: 01/17/2023 Start: 11-17-2022 End: 01-17-2023 SCHEDULE LAB TESTING SCHEDULE LAB TESTING Lab Routine Expected: 11/17/2022, Expires: 01/17/2023 [facility] Work Phone: Comment on above: Expected: 11/17/2022 , Expires: 01/17/2023 Start: 08-25-2022 End: 10-25-2022 Lipid 1996 panel - Serum or Plasma LIPID PANEL BASIC Lab Routine Medication management Expected: 08/25/2022, Expires: 10/25/2022 [facility] Work Phone: Comment on above: Expected: 08/25/2022 , Expires: 10/25/2022 Start: 08-25-2022 End: 10-25-2022 SCHEDULE LAB TESTING SCHEDULE LAB TESTING Lab Routine Expected: 08/25/2022, Expires: 10/25/2022 [facility] Work Phone: Comment on above: Expected: 08/25/2022 , Expires: 10/25/2022 Start: 07-02-2022 Influenza vaccination INFLUENZA (#1) [facility] Start: 04-06-2022 End: 06-06-2022 Hepatitis C virus RNA [Units/volume] (viral load) in Serum or Plasma by CLAYTON with probe detection HCV QUANT RNA BY PCR Lab Routine Wellness examination Expected: 04/06/2022, Expires: 06/06/2022 [facility] Work Phone: Comment on above: Expected: 04/06/2022 , Expires: 06/06/2022 Start: 04-06-2022 End: 06-06-2022 Thyrotropin [Units/volume] in Serum or Plasma TSH BLD Lab Routine Obesity, Class III, BMI >= 40 E66.01 Expected: 04/06/2022, Expires: 06/06/2022 [facility] Work Phone: Comment on above: Expected: 04/06/2022 , Expires: 06/06/2022 Start: 2021 COLOGUARD (FIT-DNA) COLOGUARD (FIT-D NA) [facility] Start: 2021 Colonoscopy COLONOSCOPY [facility] Start: 2021 COLORECTAL CANCER SCREENING COLORECTAL CANCER SCREENING [facility] Start: [address] COLONOGRAPHY [facility] Start: 2021 FECAL OCCULT BLOOD FECAL OCCULT BLOO D [facility] Start: 2021 Screening for malign ant neoplasm of colon [facility] Start: 2021 SIGMOIDOSCOPY SIGMOIDOSCOPY [facility] Start: 11-07-2021 COVID-19 VACCINE (4 - Booster for Pfizer series) COVID-19 VACCINE (4 - Booster for Pfizer series) [facility] Start: 11-07-2021 COVID-19 VACCINE (4 - Pfizer series) COVID-19 VACCINE (4 - Pfizer series) [facility] Start: 01-20-2019 PNEUMOCOCCAL (2 - PCV) PNEUMOCOCCAL (2 - PCV) [facility] Start: 01-20-2019 Pneumococcal vaccination [facility] Start: 07-30-2010 HEPATITIS A (2 of 2 - Risk 2-dose series) HEPATITIS A (2 of 2 - Risk 2-dose series) [facility] Start: 07-30-2010 Hepatitis A Vaccine (2 of 2 - Risk 2-dose series) Hepatitis A Vaccine (2 of 2 - Risk 2-dose series) [facility] Start: 02-24-2010 HEPATITIS B (2 of 3 - 3-dose series) [facility] Start: 02-24-2010 Hepatitis B Vaccine (2 of 3 - 19+ 3-dose series) Hepatitis B Vaccine (2 of 3 - 19+ 3-dose series) [facility] Start: 1994 HEPATITIS C SCREENING HEPATITIS C [facility] Start: 1994 Hepatitis C screening Hepatitis C [facility] COLOGUARD COLOGUARD Lab Ro utine Colon cancer screening Ordered: 05/31/2024 [facility] Comment on above: Ordered: 05/31/2024 End: 09-13-2023 Duplex scan extracranial art compl bi study US CAROTID BILAT Radiology Routine Syncope, unspecified syncope type 1 Occurrences starting 08/14/2022 until 09/13/2023 [facility] Work Phone: Comment on above: 1 Occurrences starti ng 08/14/2022 until 09/13/2023 End: 11-21-2025 EMG(NEURO/NI) EMG(NEURO/NI) EMG Routine Wrist pain, acute, right 1 Occurrences starting 11/21/2024 until 11/21/2025 [facility] Comment on above: 1 Occurrences starti ng 11/21/2024 until 11/21/2025 End: 08-14-2023 HOLTER MONITOR 48 HOUR HOLTER MONITOR 48 HOUR ECG Routine Syncope, unspecified syncope type 1 Occurrences starting 08/14/2022 until 08/14/2023 [facility] Work Phone: Comment on above: 1 Occurrences starti ng 08/14/2022 until 08/14/2023 End: 08-25-2022 HOLTER MONITOR 48 HOUR HOLTER MONITOR 48 HOUR ECG Routine Syncope, unspecified syncope type 1 Occurrences starting 08/25/2022 until 08/25/2022 [facility] Work Phone: Comment on above: 1 Occurrences starti ng 08/25/2022 until 08/25/2022 Influenza virus A an d B RNA and SARS-CoV-2 (COVID-19) N gene panel - Respiratory specimen by CLAYOTN with probe detection COVID WITH FLUA+B, ROUTINE Microbiology Routine Viral URI with cough Ordered: 06/17/2022 [facility] Work Phone: Comment on above: Ordered: 06/17/2022 End: 09-17-2023 MRI KNEE WO IVCON RT MRI KNEE WO IVCON RT Radiology Routine Contusion of right knee, initial encounter Patellar dislocation, right, initial encounter 1 Occurrences starting 08/18/2022 until 09/17/2023 [facility] Work Phone: Comment on above: 1 Occurrences starti ng 08/18/2022 until 09/17/2023 End: 09-15-2024 Radiologic exam chest 2 views XR CHEST 2V FRONTAL/LAT Radiology Routine Acute cough 1 Occurrences starting 08/17/2023 until 09/15/2024 [facility] Work Phone: Comment on above: 1 Occurrences starti ng 08/17/2023 until 09/15/2024 XR KNEE 3V FLEX/LAT/MERCH LEFT (AK) XR KNEE 3V FLEX/LAT/MERCH LEFT (AK) Radiology Routine Post-traumatic osteoarthritis of left knee Ordered: 05/13/2023 [facility] Work Phone: Comment on above: Ordered: 05/13/2023 End: 04-29-2024 XR KNEE GENERAL 4V AP BOTH/PA BOTH/LAT/MERC LEFT XR KNEE GENERAL 4V AP BOTH/PA BOTH/LAT/MERC LEFT Radiology Routine Chronic pain of left knee 1 Occurrences starting 03/31/2023 until 04/29/2024 [facility] Work Phone: Comment on above: 1 Occurrences starti ng 03/31/2023 until 04/29/2024 End: 07-21-2025 XR Lumbar spine Views W flexion and W extension XR LUMBAR MOTION 4V AP/LAT/ FLEX/EXT Radiology Routine Acute left-sided low back pain without sciatica 1 Occurrences starting 06/21/2024 until 07/21/2025 [facility] Work Phone: Comment on above: 1 Occurrences starti ng 06/21/2024 until 07/21/2025 End: 06-22-2024 XR Lumbar spine Views W flexion and W extension [facility] Work Phone: Comment on above: 1 Occurrences starti ng 06/22/2024 until 06/22/2024 End: 12-21-2025 XR Wrist - right PA and Lateral and Oblique XR WRIST GENERAL 3V PA/LAT/OBL RIGHT Radiology Routine Wrist pain, acute, right 1 Occurrences starting 11/21/2024 until 12/21/2025 [facility] Work Phone: Comment on above: 1 Occurrences starti ng 11/21/2024 until 12/21/2025 [facility] Immunizations Immunization Date Immunization Notes Care Provider Shy carroll 08-08-2024 COVID-19 vaccine, ag e 12+ yr ([employer] [facility]) Remi 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 Work Phone: [facility] 07-13-2024 pneumococcal Conjuga te, unspecified formulation Remi 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 Work Phone: [facility] Work Phone: 07-13-2024 influenza, seasonal, injectable Remi 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 Work Phone: [facility] 07-13-2024 pneumococcal conjuga te (PCV20) vaccine, 20 valent (PREVNAR 20) Remi 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 Work Phone: [facility] 07-13-2024 influenza virus vacc ine, unspecified formulation Remi 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 Work Phone: [facility] 10-05-2022 influenza, injectabl e, quadrivalent, contains preservative Devon James Jr., MD Work Phone: [facility] 10-05-2022 influenza virus vacc ine, unspecified formulation Devon James Jr., MD Work Phone: [facility] 09-12-2021 COVID-19 vaccine, ag e 12+ yr ([employer] [facility]) Agapito Hale MD Work Phone: [facility] 09-02-2021 influenza, injectabl e, quadrivalent, contains preservative Agapito Hale MD Work Phone: [facility] 03-03-2021 tetanus toxoid, redu bassam diphtheria toxoid, and acellular pertussis vaccine, adsorbed Agapito Hale MD Work Phone: [facility] 02-12-2021 COVID-19 vaccine, ag e 12+ yr ([facility] Agapito Hale MD Work Phone: [facility] 01-22-2021 COVID-19 vaccine, ag e 12+ yr ([facility]) Agapito Hale MD Work Phone: [facility] 10-29-2020 influenza, injectabl e, quadrivalent, contains preservative Agapito Hlae MD Work Phone: [facility] 10-19-2019 influenza, injectabl e, quadrivalent, preservative free Agapito Hale MD Work Phone: [facility] 01-20-2018 pneumococcal polysaccharide vaccine, 23 valent Agapito Hale MD Work Phone: [facility] 08-03-2016 tetanus toxoid, redu bassam diphtheria toxoid, and acellular pertussis vaccine, adsorbed Agapito Hale MD Work Phone: [facility] 09-01-2010 influenza virus vacc ine, split virus (incl. purified surface antigen) Agapito Hale MD Work Phone: [facility] 01-27-2010 hepatitis A vaccine, adult dosage Agapito Hale MD Work Phone: [facility] 01-27-2010 hepatitis B vaccine, adult dosage Agapito Hale MD Work Phone: [facility] 01-27-2010 hepatitis B vaccine, unspecified formulation Melissa Mae APRN.CNP Work Phone: [facility] 12-27-2009 influenza virus vacc ine, split virus (incl. purified surface antigen) Agapito Hale MD Work Phone: [facility] 12-27-2009 novel influenza-H1N1 -09, injectable gAapito Hale MD Work Phone: [facility] 12-27-2009 tetanus toxoid, redu bassam diphtheria toxoid, and acellular pertussis vaccine, adsorbed Agapito Hale MD Work Phone: [facility] 08-10-2007 influenza virus vacc ine, split virus (incl. purified surface antigen) Agapito Hale MD Work Phone: [facility] Payers Date Payer Category Payer Self-pay 2024 Medicaid [id number] 2023 Private Health Insurance [id number] 2021 Unknown [id number] 2019 Medicaid [employer] [place] [id number] 2019-Present [id number] [place] [id number] Medicaid [id number] 2019 Medicaid [id number] Unknown [id number] Social History Date Type Detail Facility Start: 06-01-2015 End: 06-17-2022 Tobacco smoking status NHIS Never smoked tobacco [facility] Start: 06-01-2015 End: 06-17-2022 Tobacco use and exposure Smokeless tobacco non-user [facility] Start: 02-09-2022 End: 05-15-2025 Alcohol intake Current drinker of alcohol (finding) [facility] Start: 08-27-2020 History SDOH Alcohol Frequency 3 [facility] Start: 08-27-2020 History SDOH Alcohol Std Drinks 1 [facility] Start: 08-15-2021 History SDOH Alcohol Comment < 1/bill k [facility] Start: 1975 Sex Assigned At Not on file [facility] Start: 01-06-2022 End: 10-05-2022 Exposure to SARS-CoV-2 (event) Not sure [facility] Start: 08-21-2022 End: 08-31-2022 Exposure to SARS-CoV-2 (event) Yes [facility] Start: 08-27-2020 End: 03-05-2023 History of Social function [facility] Start: 08-27-2020 End: 03-05-2023 Alcohol Use Disorder Identification Test - Consumption [AUDIT-C] [facility] How often to you hav e a drink containing alcohol? 2-4 times a month [facility] How many standard dr inks containing alcohol do you have on a typical day? 1 or 2 [facility] How often do you hav e 6 or more drinks on 1 occasion? Never [facility] Adult Depression Scr eening Assessment 3 [facility] Start: 01-04-2018 Sexual orientation Choose not to dis close [facility] Start: 08-24-2023 Alcohol Comment social [facility] Medical Equipment Procedure Code Equipment Code Equipment Origin al Text Equipment Identifier Dates Kit Scp Accuport 11ga 120mm Bone Cement Side Delivery Cannula Sterile Knee - [id number] Start: 04-05-2020 Functional Status Date Assessment Result Facility 07-19-2021 Are you deaf, or do you have serious difficulty hearing No 07/19/2021 5:23 PM Mary Liu, MARCIA No [facility] 07-19-2021 Are you blind, or do you have serious difficulty seeing, even when wearing glasses No 07/19/2021 5:23 PM Mary Liu, MARCIA No [facility] 07-19-2021 Do you have serious difficulty walking or climbing stairs No 07/19/2021 5:23 PM Mary Liu, MARCIA No [facility] 07-19-2021 Do you have difficul ty dressing or bathing No 07/19/2021 5:23 PM EDT Mary Hussein, MARCIA No [facility] 07-19-2021 Because of a physica l, mental, or emotional condition, do you have difficulty doing errands alone such as visiting a physician's office or shopping No 07/19/2021 5:23 PM EDT Mary Hussein, MARCIA No [facility] Mental Status Date Assessment Result Facility 07-19-2021 Because of a physica l, mental, or emotional condition, do you have serious difficulty concentrating, remembering, or making decisions No 07/19/2021 5:23 PM EDT Mary Hussein, MARCIA No [facility] Clinical Notes 01-13-2021 to 05-16-2025 Telephone Encounter - Maggi Carmichael - 05/16/2025 9:30 AM EDTTelephone Encounter - Maggi Carmichael - 05/16/2025 9:30 AM Chloe Spain LPN - 05/15/2025 11:20 AM EDTPatient Instructions Note Date & Type Note Facility 05-16-2025 Telephone encounter Note Per Reim Ruth APRN, CNP send office note from 05/15/2025 with the Clearance Request form from [facility] / Dr. Donovan Palomares Faxed office note from 05/15/2025 completed, with confirmation Maggi Carmichael May 16, 2025 [facility] 05-16-2025 Miscellaneous Notes Per Remi Ruth APRN, CNP send office note from 05/15/2025 with the Clearance Request form from [facility] / Dr. Donovan Palomares Faxed office note from 05/15/2025 completed, with confirmation Maggi Carmichael May 16, 2025 documented in this encounter [facility] 05-15-2025 Note [facility] 05-15-2025 History of Present illness Narrative Patient has been identified by name and date of : Yes Sam is here for an injection of Vitamin B12 Dose: 1 Route: Intramuscular Given without incident. Site: right deltoid Supervisor Picking Crew: [employer]. Lot #: [id number] [facility] #: [id number] Expiration Date: 11/30/26 Remi Ruth PIG MACHINE CRANE OPERATOR present in clinic at time of injection. The date due for the next injection is . Chloe Mc LPN Images from the original note were not included. [facility] Medicine [address] [place] [address] Date of Evaluation: 05/15/2025 Patient Name: Sam Rai : 1975 Chief Complaint: Patient presents with: Follow Up: 3 month follow up left knee pain so the whole left leg hurts now Subjective Mr. Rai is a 49 year old male who presents for preoperative evaluation. Referring surgeon: Dr. Palomares at [facility] Date of surgery: 05/23/2025 Planned surgery/procedure: Total Left knee Replacement Indication for planned surgery/procedure: Osteoarthrosis of the left knee. Patient is able to perform the following physical activity: Do heavy work around the house, such as scrubbing floors, lifting or moving heavy furniture (8.00 METs) Run a short distance (8.00 METs) Patient denies any chest pain or undue shortness of breath with the above physical activity. Significant anesthesia considerations: None. Review of Systems PAST MEDICAL HISTORY Diagnosis Date Acute medial meniscus tear of right knee Anxiety Asthma (HCC) Closed fracture of bone of right foot 05/09/2019 Contact dermatitis Recurrence not specified. COVID-19 long hauler Depression Diverticulitis GERD (gastroesophageal reflux disease) Insufficiency fracture of tibia Migraines Obesity, morbid, BMI 40.0-49.9 (HCC) Primary osteoarthritis of right knee Restless legs syndrome (RLS) Sinus infection PAST SURGICAL HISTORY Procedure Laterality Date CARPAL TUNNEL Right CHOLECYSTECTOMY HX in 2000 KNEE SURGERY HX Right scope and tibial transfer ORTHOPEDICS SURGERY HX Right Right Knee PAST SURGICAL HISTORY OF teeth removed TONSILLECTOMY HX FAMILY HISTORY Problem Relation Age of Onset Stroke Mother Lipids Mother Hypertension Mother Obesity Mother Asthma Mother COPD Mother Lipids Father Hypertension Father Alcohol/Drug Father Restless legs syndrome No Family History Obstructive Sleep Apnea No Family History Social History Tobacco Use Smoking status: Never Smokeless tobacco: Never Vaping Use Vaping status: Never Used Substance Use Topics Alcohol use: Yes Comment: social Drug use: Never Comment: No reported history. Current Outpatient Medications Medication Sig clobetasol (TEMOVATE) 0.05 % cream apply 1 application topically to affected area two times a day. tamsulosin (FLOMAX) 0.4 mg TAKE 1 CAPSULE BY MOUTH EVERYDAY AT BEDTIME rOPINIRole (REQUIP) 0.5 mg tablet TAKE 0.5 TABLETS BY MOUTH DAILY AT BEDTIME FOR 2 DAYS, THEN 1 TABLET DAILY AT BEDTIME FOR 5 DAYS, THEN 2 TABLETS DAILY AT BEDTIME. fluticasone (FLONASE) 50 mcg/actuation nasal spray SPRAY 1 SPRAY INTO EACH NOSTRIL AT BEDTIME topiramate (TOPAMAX) 50 mg tablet Take 3 tablets by mouth once daily. busPIRone (BUSPAR) 10 mg tablet Take 10 mg by mouth three times a day. celecoxib (CELEBREX) 100 mg capsule Take 100 mg by mouth two times a day. albuterol HFA (PROAIR HFA) 90 mcg/actuation inhaler Inhale 2 puffs as instructed every 4 hours as needed. montelukast (SINGULAIR) 10 mg tablet TAKE 1 TABLET BY MOUTH EVERYDAY AT BEDTIME hydrOXYzine HCl (ATARAX) 50 mg tablet TAKE 1 TABLET BY MOUTH THREE TIMES A DAY NEEDED FOR ANXIETY FLUoxetine (PROZAC) 40 mg capsule TAKE 1 CAPSULE BY MOUTH EVERY DAY traZODone (DESYREL) 100 mg tablet TAKE 2 TABLETS BY MOUTH AT BEDTIME SUMAtriptan (IMITREX) 50 mg tablet Take 1 tablet (50 mg) by mouth as needed for migraine headache (see administration instructions). May repeat dose after 2 hours if needed. Maximum daily dose is 200 mg per day. cholecalciferol, Vitamin D3, (VITAMIN D3) 1,250 mcg (50,000 unit) cap capsule Take 1 capsule by mouth one time a week for 10 doses. sildenafil (VIAGRA) 100 mg tablet Take 1 tablet by mouth once daily as needed. Take 30-60 minutes before sexual activity. valACYclovir (VALTREX) 500 mg tablet Take 1 tablet by mouth once daily. dulaglutide (TRULICITY) 1.5 mg/0.5 mL pen injector Inject 1.5 mg subcutaneously one time a week. gabapentin (NEURONTIN) 300 mg capsule Take 4 capsules by mouth as directed for 30 days. Current Facility-Administered Medications Medication Dose Route Frequency cyanocobalamin 1,000 mcg injection 1,000 mcg INTRAMUSCULAR q 4 WEEKS I have confirmed and edited as necessary the chief complaint, medications, past medical, family and social histories obtained by others. Objective BP 118/80 Pulse 77 Resp 18 Ht 5' 7" (1.70m) Wt 246 lb (111.6kg) SpO2 100% BMI 38.52 kg/(m^2). Physical Exam Vitals reviewed. Constitutional: General: He is not in acute distress. Appearance: Normal appearance. He is normal weight. HENT: Head: Normocephalic. Eyes: Extraocular Movements: Extraocular movements intact. Conjunctiva/sclera: Conjunctivae normal. Pupils: Pupils are equal, round, and reactive to light. Cardiovascular: Rate and Rhythm: Normal rate and regular rhythm. Pulses: Normal pulses. Heart sounds: Normal heart sounds. No murmur heard. No friction rub. No gallop. Pulmonary: Effort: Pulmonary effort is normal. Breath sounds: Normal breath sounds. No wheezing, rhonchi or rales. Abdominal: General: Bowel sounds are normal. Palpations: Abdomen is soft. Musculoskeletal: General: Normal range of motion. Cervical back: Normal range of motion. Right lower leg: No edema. Left lower leg: No edema. Lymphadenopathy: Cervical: No cervical adenopathy. Skin: General: Skin is warm and dry. Findings: No lesion or rash. Neurological: General: No focal deficit present. Mental Status: He is alert and oriented to person, place, and time. Mental status is at baseline. Psychiatric: Mood and Affect: Mood normal. Behavior: Behavior normal. Assessment/Plan Patient has the following medical comorbidities which might affect the perioperative course: - Chronic Asthma which is mild and intermittent. - Patient is morbidly obese related to excessive caloric intake. Body mass index is 38.53 kg/m . - Patient with sleep apnea and uses CPAP. Patient's RCRI (Revised Cardiac Risk Index: CAD/CHF/Stroke or TIA/SCr>2/DM on Insulin/High Risk Surgery) score is 0.4% and is at low risk for major adverse cardiac events in the perioperative period. Diagnostic tests reviewed for today's visit: Most recent labs Most recent EKG Medications to adjust: Antihypertensives: N/A Anticoagulants/Antiplatelets: N/A Antihyperglycemics: Hold until after surgery NSAIDS: Avoid 7 days prior I have discussed the above recommendations with the patient in detail, in deena and lay terms, and provided a verbal summary of instructions. We have discussed that no surgery is without risk, but that the goal of preoperative assessment is to optimize that risk, and that was clearly understood by the patient. I have given ample opportunity for the patient to ask questions, and answered all questions to their stated satisfaction Patient is optimally prepared for surgery. Return if symptoms worsen or fail to improve. Discussed the above with the patient using shared decision making. The patient is in agreement with the diagnostic and treatment plans. documented in this encounter [facility] 05-15-2025 Instructions Remi Ruth APRN.CNP - 05/15/2025 11:04 AM EDT Medications to adjust: Antihypertensives: N/A Anticoagulants/Antiplatelets: N/A Antihyperglycemics: Hold until after surgery NSAIDS: Avoid 7 days prior documented in this encounter [facility] 05-15-2025 Note [facility] 04-23-2025 Note [facility] 04-23-2025 History of Present illness Narrative Images from the original note were not included. [facility] [address] [place] [address] Date of Evaluation: 04/23/2025 Patient Name: Sam Romeroportiadiallo : 1975 Subjective Sam Rai is a 49-year-old male presenting for ER follow-up. also reports rash and ongoing pruritus. ER follow up: - Recent rash, treated with Valtrex, now resolved. Pruritus: - Generalized pruritus, particularly in the abdominal pannus area. - Taking Benadryl for relief. Fungal Infection: - Noted malodorous and moist area under the abdominal pannus, suspected to be a fungal infection. - Condition has worsened with recent weight loss of over 30 lbs. Review of Systems Constitutional: Negative for activity change, appetite change, chills and fever. HENT: Negative for ear pain, hearing loss, sinus pressure, sinus pain, sore throat and trouble swallowing. Eyes: Negative for visual disturbance. Respiratory: Negative for cough, chest tightness, shortness of breath and wheezing. Cardiovascular: Negative for chest pain, palpitations and leg swelling. Gastrointestinal: Negative for abdominal pain, diarrhea, nausea and vomiting. Genitourinary: Negative for dysuria and frequency. Musculoskeletal: Negative for arthralgias and myalgias. Skin: Positive for rash. Negative for pallor and wound. Neurological: Negative for dizziness, light-headedness, numbness and headaches. Psychiatric/Behavioral: Negative for behavioral problems, confusion, hallucinations and suicidal ideas. PAST MEDICAL HISTORY Diagnosis Date Acute medial meniscus tear of right knee Anxiety Asthma (HCC) Contact dermatitis Recurrence not specified. COVID-19 long hauler Depression Diverticulitis GERD (gastroesophageal reflux disease) Insufficiency fracture of tibia Migraines Obesity, morbid, BMI 40.0-49.9 (HCC) Primary osteoarthritis of right knee Restless legs syndrome (RLS) Sinus infection PAST SURGICAL HISTORY Procedure Laterality Date CARPAL TUNNEL Right CHOLECYSTECTOMY HX in 1999 KNEE SURGERY HX Right scope and tibial transfer ORTHOPEDICS SURGERY HX Right Right Knee PAST SURGICAL HISTORY OF teeth removed TONSILLECTOMY HX FAMILY HISTORY Problem Relation Age of Onset Stroke Mother Lipids Mother Hypertension Mother Obesity Mother Asthma Mother COPD Mother Lipids Father Hypertension Father Alcohol/Drug Father Restless legs syndrome No Family History Obstructive Sleep Apnea No Family History Social History Tobacco Use Smoking status: Never Smokeless tobacco: Never Vaping Use Vaping status: Never Used Substance Use Topics Alcohol use: Yes Comment: social Drug use: Never Comment: No reported history. Current Outpatient Medications Medication Sig clobetasol (TEMOVATE) 0.05 % cream apply 1 application topically to affected area two times a day. dulaglutide (TRULICITY) 1.5 mg/0.5 mL pen injector Inject 1.5 mg subcutaneously one time a week. tamsulosin (FLOMAX) 0.4 mg TAKE 1 CAPSULE BY MOUTH EVERYDAY AT BEDTIME rOPINIRole (REQUIP) 0.5 mg tablet TAKE 0.5 TABLETS BY MOUTH DAILY AT BEDTIME FOR 2 DAYS, THEN 1 TABLET DAILY AT BEDTIME FOR 5 DAYS, THEN 2 TABLETS DAILY AT BEDTIME. fluticasone (FLONASE) 50 mcg/actuation nasal spray SPRAY 1 SPRAY INTO EACH NOSTRIL AT BEDTIME topiramate (TOPAMAX) 50 mg tablet Take 3 tablets by mouth once daily. gabapentin (NEURONTIN) 300 mg capsule Take 4 capsules by mouth as directed for 30 days. methocarbamol (ROBAXIN) 750 mg tablet Take 1 tablet by mouth three times a day. busPIRone (BUSPAR) 10 mg tablet Take 10 mg by mouth three times a day. celecoxib (CELEBREX) 100 mg capsule Take 100 mg by mouth two times a day. albuterol HFA (PROAIR HFA) 90 mcg/actuation inhaler Inhale 2 puffs as instructed every 4 hours as needed. montelukast (SINGULAIR) 10 mg tablet TAKE 1 TABLET BY MOUTH EVERYDAY AT BEDTIME hydrOXYzine HCl (ATARAX) 50 mg tablet TAKE 1 TABLET BY MOUTH THREE TIMES A DAY NEEDED FOR ANXIETY FLUoxetine (PROZAC) 40 mg capsule TAKE 1 CAPSULE BY MOUTH EVERY DAY traZODone (DESYREL) 100 mg tablet TAKE 2 TABLETS BY MOUTH AT BEDTIME SUMAtriptan (IMITREX) 50 mg tablet Take 1 tablet (50 mg) by mouth as needed for migraine headache (see administration instructions). May repeat dose after 2 hours if needed. Maximum daily dose is 200 mg per day. cholecalciferol, Vitamin D3, (VITAMIN D3) 1,250 mcg (50,000 unit) cap capsule Take 1 capsule by mouth one time a week for 10 doses. sildenafil (VIAGRA) 100 mg tablet Take 1 tablet by mouth once daily as needed. Take 30-60 minutes before sexual activity. valACYclovir (VALTREX) 500 mg tablet Take 1 tablet by mouth once daily. nystatin (MYCOSTATIN) powder Apply 1 application to affected area three times a day for 14 days. Current Facility-Administered Medications Medication Dose Route Frequency cyanocobalamin 1,000 mcg injection 1,000 mcg INTRAMUSCULAR q 4 WEEKS Objective BP 100/72 Pulse 106 Resp 18 Ht 170.2 cm (5' 7") Wt 112.9 kg (249 lb) SpO2 98% BMI 39.00 kg/m Physical Exam Vitals reviewed. Constitutional: General: He is not in acute distress. Appearance: Normal appearance. He is normal weight. HENT: Head: Normocephalic. Eyes: Extraocular Movements: Extraocular movements intact. Conjunctiva/sclera: Conjunctivae normal. Pupils: Pupils are equal, round, and reactive to light. Cardiovascular: Rate and Rhythm: Normal rate and regular rhythm. Pulses: Normal pulses. Heart sounds: Normal heart sounds. No murmur heard. No friction rub. No gallop. Pulmonary: Effort: Pulmonary effort is normal. Breath sounds: Normal breath sounds. No wheezing, rhonchi or rales. Musculoskeletal: General: Normal range of motion. Cervical back: Normal range of motion. Right lower leg: No edema. Left lower leg: No edema. Lymphadenopathy: Cervical: No cervical adenopathy. Skin: General: Skin is warm and dry. Findings: Rash (under pannus) present. No lesion. Neurological: General: No focal deficit present. Mental Status: He is alert and oriented to person, place, and time. Mental status is at baseline. Psychiatric: Mood and Affect: Mood normal. Behavior: Behavior normal. Assessment & Plan 1. Hospital discharge follow-up (Z09) - Follow-up after recent hospitalization for herpes zoster. - Scheduled surgical clearance appointment on May 15; will perform updated EKG and complete clearance form. - Patient will be at [facility] for 1-2 weeks; will send medication list to [facility]. 2. Fungal skin infection (B36.9) - Noted malodorous and moist areas under the pannus, consistent with a fungal infection. - Prescribed nystatin powder to be applied TID to affected areas to maintain dryness and treat the fungal infection. 3. Herpes zoster without complication (B02.9) - Rash has resolved following treatment with Valtrex. 4. Pruritus (L29.9) - Generalized pruritus persists. - Recommended continuation of Benadryl for systemic relief. - Advised use of clobetasol cream topically to affected areas to alleviate localized itching. Return if symptoms worsen or fail to improve. Remi Ruth APRN.PIG MACHINE CRANE OPERATOR Recording using [employer] software for draft documentation of the visit was discussed with the patient/authorized patient service representative; all questions welcomed and answered. Patient/authorized patient service representative agreed to proceed documented in this encounter [facility] 04-12-2025 Telephone encounter Note 03/22 last OV med pend [facility] 04-12-2025 Miscellaneous Notes 03/22 last OV med pend documented in this encounter [facility] 04-11-2025 Telephone encounter Note Erroneouus encounter [facility] 04-11-2025 Miscellaneous Notes Erroneouus encounter documented in this encounter [facility] 04-11-2025 Telephone encounter Note Left voicemail, please re-schedule todays missed appointment when he phones back ALSO MAILED OUT FIRST NO SHOW LETTER [facility] 04-11-2025 Miscellaneous Notes Left voicemail, please re-schedule todays missed appointment when he phones back ALSO MAILED OUT FIRST NO SHOW LETTER documented in this encounter [facility] 04-10-2025 Telephone encounter Note Left VM reminding pt of appointment on 04/11/25 and to have xrays completed prior to the day of his appointment. Pt was given hours and locations to have this completed and was advised to call the office with any questions or concerns. Precious Rogers MA April 10, 2025 9:03 AM [facility] 04-10-2025 Miscellaneous Notes Left VM reminding pt of appointment on 04/11/25 and to have xrays completed prior to the day of his appointment. Pt was given hours and locations to have this completed and was advised to call the office with any questions or concerns. Precious Rogers MA April 10, 2025 9:03 AM documented in this encounter [facility] 04-09-2025 Note [facility] 04-09-2025 History of Present illness Narrative ED Follow Up: Patient discharged from [facility] ED on 04/06/25. 1. How are you feeling since your ED visit? Have your symptoms improved or resolved? Not applicable 2. Were you prescribed any medications while in the ED or advised to stop any medication? Not applicable - If yes, were you able to fill your prescriptions? Not applicable -if stopped medication, what was the medication? 3. Were you advised to schedule a follow up appointment with your provider? Not applicable - If no, Do you feel like you need an appointment scheduled? Not applicable - If yes, Do you need this scheduled now or has this already been scheduled? Not applicable 4. Were you able to contact the office or transportation solutions manager provider prior to your ED visit? Not applicable 5. Is there anything else I can do for you today? Not applicable Message left to call the office if appt needed documented in this encounter [facility] 04-05-2025 Instructions Yomi Manzanares APRN.CNP - 04/05/2025 8:54 AM EDT STY: You have a sty, an infection of one of the tiny glands located on the eyelid. A sty takes several days to develop. It usually forms a small abscess along the edge of the eyelid. The pus that forms in the infected gland must drain for the sty to heal. A sty is treated by applying warm moist compresses to the eye for 15 minutes three times daily until it drains and the swelling and redness are gone. Some sties require surgical drainage. Antibiotic eye drops may be needed if the infection spreads to other areas of the eye. Please see your doctor if your eye is not better after 3 days of treatment. Return immediately of see your doctor for any fever or loss of vision. documented in this encounter [facility] 04-05-2025 Note HNO ID: [id number] Author: YOMI MANZANARES APRN.MARILEE Service: ? Author Type: Nurse Practitioner Type: Progress Notes Filed: 04/05/2025 08:55 Note Text: Telemedicine Visit - Distance Health Virtual Visit Note Patient seen on [employer] Video Visit platform. Location of patient: [place] I have communicated my name and active licensure. The patient's identity and physical location were verified at the time of this visit. Either the patient or their legal patient service representative has been informed of the risks and benefits of -- and alternatives to -- treatment through a remote evaluation and consents to proceed with the evaluation remotely. History of Present Illness: Sam Rai is a 49 year old male with a history of right eye symptoms that started 5-6 days ago. Positive for: Upper eyelid itching, mild edema, tenderness and redness to medial aspect of lid Negative for: Blurred vision, Change in vision, Double vision, Photophobia, Foreign body sensation, Ocular discharge N/A, , Crusting in AM, Pain, Injury, Fevers, Chills/Sweats, and URI Symptoms Hx of seasonal allergies: Yes Ocular history: Herpes zoster surrounding right eye OTC remedies attempted: Benadryl in addition to montelukast PAST MEDICAL HISTORY Diagnosis Date Acute medial meniscus tear of right knee Anxiety Asthma (HCC) Contact dermatitis Recurrence not specified. COVID-19 long hauler Depression Diverticulitis GERD (gastroesophageal reflux disease) Insufficiency fracture of tibia Migraines Obesity, morbid, BMI 40.0-49.9 (HCC) Primary osteoarthritis of right knee Restless legs syndrome (RLS) Sinus infection PAST SURGICAL HISTORY Procedure Laterality Date CARPAL TUNNEL Right CHOLECYSTECTOMY HX in 2000 KNEE SURGERY HX Right scope and tibial transfer ORTHOPEDICS SURGERY HX Right Right Knee PAST SURGICAL HISTORY OF teeth removed TONSILLECTOMY HX FAMILY HISTORY Problem Relation Age of Onset Stroke Mother Lipids Mother Hypertension Mother Obesity Mother Asthma Mother COPD Mother Lipids Father Hypertension Father Alcohol/Drug Father Restless legs syndrome No Family History Obstructive Sleep Apnea No Family History Social History Tobacco Use Smoking status: Never Smokeless tobacco: Never Vaping Use Vaping status: Never Used Substance Use Topics Alcohol use: Yes Comment: social Drug use: Never Comment: No reported history. Current Outpatient Medications Medication Sig dulaglutide (TRULICITY) 1.5 mg/0.5 mL pen injector Inject 1.5 mg subcutaneously one time a week. tamsulosin (FLOMAX) 0.4 mg TAKE 1 CAPSULE BY MOUTH EVERYDAY AT BEDTIME rOPINIRole (REQUIP) 0.5 mg tablet TAKE 0.5 TABLETS BY MOUTH DAILY AT BEDTIME FOR 2 DAYS, THEN 1 TABLET DAILY AT BEDTIME FOR 5 DAYS, THEN 2 TABLETS DAILY AT BEDTIME. fluticasone (FLONASE) 50 mcg/actuation nasal spray SPRAY 1 SPRAY INTO EACH NOSTRIL AT BEDTIME topiramate (TOPAMAX) 50 mg tablet Take 3 tablets by mouth once daily. gabapentin (NEURONTIN) 300 mg capsule Take 4 capsules by mouth as directed for 30 days. methocarbamol (ROBAXIN) 750 mg tablet Take 1 tablet by mouth three times a day. busPIRone (BUSPAR) 10 mg tablet Take 10 mg by mouth three times a day. celecoxib (CELEBREX) 100 mg capsule Take 100 mg by mouth two times a day. albuterol HFA (PROAIR HFA) 90 mcg/actuation inhaler Inhale 2 puffs as instructed every 4 hours as needed. montelukast (SINGULAIR) 10 mg tablet TAKE 1 TABLET BY MOUTH EVERYDAY AT BEDTIME hydrOXYzine HCl (ATARAX) 50 mg tablet TAKE 1 TABLET BY MOUTH THREE TIMES A DAY NEEDED FOR ANXIETY FLUoxetine (PROZAC) 40 mg capsule TAKE 1 CAPSULE BY MOUTH EVERY DAY traZODone (DESYREL) 100 mg tablet TAKE 2 TABLETS BY MOUTH AT BEDTIME SUMAtriptan (IMITREX) 50 mg tablet Take 1 tablet (50 mg) by mouth as needed for migraine headache (see administration instructions). May repeat dose after 2 hours if needed. Maximum daily dose is 200 mg per day. cholecalciferol, Vitamin D3, (VITAMIN D3) 1,250 mcg (50,000 unit) cap capsule Take 1 capsule by mouth one time a week for 10 doses. sildenafil (VIAGRA) 100 mg tablet Take 1 tablet by mouth once daily as needed. Take 30-60 minutes before sexual activity. valACYclovir (VALTREX) 500 mg tablet Take 1 tablet by mouth once daily. Current Facility-Administered Medications Medication Dose Route Frequency cyanocobalamin 1,000 mcg injection 1,000 mcg INTRAMUSCULAR q 4 WEEKS ALLERGIES Allergen Reactions Bactrim [Sulfametho* Hives Erythromycin Base Hives, Shortness of Breath Sulfa (Sulfonamide * Unknown VIDEO EXAMINATION (Examination performed via Video enabled technology) General Appearance: Alert, oriented, pleasant, in NAD: Yes Ill appearing: No Lethargic appearing: No Respiratory distress: No Eyes: Normal Pupil Size EOMI Right: Upper eyelid: +mild erythema and edema to medial aspect of eyelid; patient reports pinpoint tenderness to eyelid n (more content not included)... [facility] 04-05-2025 History of Present illness Narrative Telemedicine Visit - Distance Health Virtual Visit Note Patient seen on [employer] Video Visit platform. Location of patient: [place] I have communicated my name and active licensure. The patient's identity and physical location were verified at the time of this visit. Either the patient or their legal patient service representative has been informed of the risks and benefits of -- and alternatives to -- treatment through a remote evaluation and consents to proceed with the evaluation remotely. History of Present Illness: Sam Rai is a 49 year old male with a history of right eye symptoms that started 5-6 days ago. Positive for: Upper eyelid itching, mild edema, tenderness and redness to medial aspect of lid Negative for: Blurred vision, Change in vision, Double vision, Photophobia, Foreign body sensation, Ocular discharge N/A, , Crusting in AM, Pain, Injury, Fevers, Chills/Sweats, and URI Symptoms Hx of seasonal allergies: Yes Ocular history: Herpes zoster surrounding right eye OTC remedies attempted: Benadryl in addition to montelukast PAST MEDICAL HISTORY Diagnosis Date Acute medial meniscus tear of right knee Anxiety Asthma (HCC) Contact dermatitis Recurrence not specified. COVID-19 long hauler Depression Diverticulitis GERD (gastroesophageal reflux disease) Insufficiency fracture of tibia Migraines Obesity, morbid, BMI 40.0-49.9 ([facility]) Primary osteoarthritis of right knee Restless legs syndrome (RLS) Sinus infection PAST SURGICAL HISTORY Procedure Laterality Date CARPAL TUNNEL Right CHOLECYSTECTOMY HX in 1999 KNEE SURGERY HX Right scope and tibial transfer ORTHOPEDICS SURGERY HX Right Right Knee PAST SURGICAL HISTORY OF teeth removed TONSILLECTOMY HX FAMILY HISTORY Problem Relation Age of Onset Stroke Mother Lipids Mother Hypertension Mother Obesity Mother Asthma Mother COPD Mother Lipids Father Hypertension Father Alcohol/Drug Father Restless legs syndrome No Family History Obstructive Sleep Apnea No Family History Social History Tobacco Use Smoking status: Never Smokeless tobacco: Never Vaping Use Vaping status: Never Used Substance Use Topics Alcohol use: Yes Comment: social Drug use: Never Comment: No reported history. Current Outpatient Medications Medication Sig dulaglutide (TRULICITY) 1.5 mg/0.5 mL pen injector Inject 1.5 mg subcutaneously one time a week. tamsulosin (FLOMAX) 0.4 mg TAKE 1 CAPSULE BY MOUTH EVERYDAY AT BEDTIME rOPINIRole (REQUIP) 0.5 mg tablet TAKE 0.5 TABLETS BY MOUTH DAILY AT BEDTIME FOR 2 DAYS, THEN 1 TABLET DAILY AT BEDTIME FOR 5 DAYS, THEN 2 TABLETS DAILY AT BEDTIME. fluticasone (FLONASE) 50 mcg/actuation nasal spray SPRAY 1 SPRAY INTO EACH NOSTRIL AT BEDTIME topiramate (TOPAMAX) 50 mg tablet Take 3 tablets by mouth once daily. gabapentin (NEURONTIN) 300 mg capsule Take 4 capsules by mouth as directed for 30 days. methocarbamol (ROBAXIN) 750 mg tablet Take 1 tablet by mouth three times a day. busPIRone (BUSPAR) 10 mg tablet Take 10 mg by mouth three times a day. celecoxib (CELEBREX) 100 mg capsule Take 100 mg by mouth two times a day. albuterol HFA (PROAIR HFA) 90 mcg/actuation inhaler Inhale 2 puffs as instructed every 4 hours as needed. montelukast (SINGULAIR) 10 mg tablet TAKE 1 TABLET BY MOUTH EVERYDAY AT BEDTIME hydrOXYzine HCl (ATARAX) 50 mg tablet TAKE 1 TABLET BY MOUTH THREE TIMES A DAY NEEDED FOR ANXIETY FLUoxetine (PROZAC) 40 mg capsule TAKE 1 CAPSULE BY MOUTH EVERY DAY traZODone (DESYREL) 100 mg tablet TAKE 2 TABLETS BY MOUTH AT BEDTIME SUMAtriptan (IMITREX) 50 mg tablet Take 1 tablet (50 mg) by mouth as needed for migraine headache (see administration instructions). May repeat dose after 2 hours if needed. Maximum daily dose is 200 mg per day. cholecalciferol, Vitamin D3, (VITAMIN D3) 1,250 mcg (50,000 unit) cap capsule Take 1 capsule by mouth one time a week for 10 doses. sildenafil (VIAGRA) 100 mg tablet Take 1 tablet by mouth once daily as needed. Take 30-60 minutes before sexual activity. valACYclovir (VALTREX) 500 mg tablet Take 1 tablet by mouth once daily. Current Facility-Administered Medications Medication Dose Route Frequency cyanocobalamin 1,000 mcg injection 1,000 mcg INTRAMUSCULAR q 4 WEEKS ALLERGIES Allergen Reactions Bactrim [Sulfametho* Hives Erythromycin Base Hives, Shortness of Breath Sulfa (Sulfonamide * Unknown VIDEO EXAMINATION (Examination performed via Video enabled technology) General Appearance: Alert, oriented, pleasant, in NAD: Yes Ill appearing: No Lethargic appearing: No Respiratory distress: No Eyes: Normal Pupil Size EOMI Right: Upper eyelid: +mild erythema and edema to medial aspect of eyelid; patient reports pinpoint tenderness to eyelid near medial canthus. Sclera white and healthy appearing, No conjunctival injection, No ocular discharge, and No periorbital edema Left: Sclera white and healthy appearing, No conjunctival injection, No ocular discharge, No eyelid edema, and No periorbital edema ASSESSMENT/PLAN: 1. Eyelid symptom - ICD9: 374.9, ICD10: H02.9 - DESONIDE 0.05 % TOPICAL OINTMENT - Based on H&P suspect hordeolum internum - Desonide prescribed to help with itching/discomfort - Discussed importance of warm compresses - apply for 15-20 minutes several times throughout the day; ensure compresses are not too hot - Massage and gentle wiping of the affected eyelid after the warm compress can also aid in drainage. - Recommend immediate medical evaluation if any worsening symptoms, fevers, vision changes, redness surrounding eye - Follow up with ophthalmology if no improvement in 5-7 days or sooner for any worsening or additional symptoms - Pt acknowledges understanding and is in agreement with plan. - All questions answered Yomi Manzanares APRN.PIG MACHINE CRANE OPERATOR History and Record Review External record(s) reviewed: prior outpatient record. Differential Diagnoses - Hordeolum internum of right upper eyelid - Herpes zoster is less likely for the following reason(s): H&P not suggestive Disposition The patient was other (comment) (Zoom visit ended). documented in this encounter [facility] 03-22-2025 Note [facility] 03-21-2025 Note HNO ID: [id number] Author: MINA BOTELLO LPN Service: ? Author Type: LICENSED NURSE Type: Progress Notes Filed: 03/23/2025 16:27 Note Text: Gregory straps applied to right ring and little finger at this time. Pt tolerated well. Home care instructions were given with verbal understanding from the patient. Pt had no further questions at this time. Mina Botello LPN March 21, 2025 10:41 AM [facility] 03-21-2025 Note HNO ID: [id number] Author: JAS PALACIO RT(Oniel) Service: Radiology Author Type: Technologist Type: Progress Notes Filed: 03/21/2025 09:47 Note Text: Summary: XR RIGHT HAND Radiology Service Progress Note PATIENT NAME: Sam Rai DATE OF SERVICE: March 21, 2025 TIME: 9:47 AM PATIENT IDENTITY VERIFICATION COMPLETED USING TWO (2) IDENTIFIERS: Name and Date of confirmed by patient verbally. FALL SCREENING: Has the patient had 2 falls in the last year or 1 fall with injury or currently using an Ambulatory Assistive Device (Walker, Cane, Wheelchair, Crutches, etc.)? No PATIENT GENDER DATA: Assigned male at PATIENT RELEVANT IMPLANT DATA REVIEWED: Not Applicable PATIENT PRESENTS WITH AN IMPLANTABLE OR ATTACHED TRUCK BODY BUILDER: No RADIOLOGY DEPARTMENT: General X-ray: Exam(s) Completed: Upper Extremity X-Ray(s): Wrist, right PERIPHERAL IV DATA: Not applicable SIGNED BY: Jas Palacio RT(R) March 21, 2025 9:47 AM [facility] 03-21-2025 Note HNO ID: [id number] Author: YOON ZHANG APRN.CNP Service: ? Author Type: Nurse Practitioner Type: Progress Notes Filed: 03/23/2025 16:27 Note Text: SERVICE DATE: March 21, 2025 PCP: Remi Ruth APRN.PIG MACHINE CRANE OPERATOR Subjective Patient ID: Sam is a 49 year old year old male seen today with right hand pain. It started after he was performing yard work. He reports that he tripped and fell while he was holding a piece of equipment and twisted his finger. He experienced immediate pain so was evaluated n ED on 03/07 where he was found to have a non-displaced fracture through the base of the middle phalanx of pinky finger. HE was placed in a long finger soft splint. Today reports that he continues to have some pain and swelling, but that it is slowly settling down. PAIN EVALUATION No data found in the last 1 encounters. HPI Review of Systems ACTIVE PROBLEM LIST Primary Osteoarthritis of Right Knee Pain in Right Knee Contact Dermatitis Mass On Back Restless Leg Syndrome Migraine With Aura and Without Status Migrainosus, Not Intractable Eczema Obesity, Class III, BMI >= 40 E66.01 Posterior Tibial Tendinitis of Left Leg Sinus Tarsi Syndrome of Left Ankle Obesity, Morbid, Bmi 40.0-49.9 (Hcc) Diverticulosis Chronic Nonintractable Headache Closed Fracture of Bone of Right Foot Intractable Migraine Without Aura and Without Status Migrainosus Seasonal Allergic Rhinitis Due to Pollen History of Shingles Bronchitis, Mucopurulent Recurrent ([facility]) S/P Left Knee Surgery Lis (Obstructive Sleep Apnea) 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 Hair and Dander Allergic Rhinitis Allergic Rhinitis Due to Mold Allergic Rhinitis Due to Dust Mite Dyspnea and Respiratory Abnormalities Pleuritic Chest Pain Moderate Asthma ([facility]) Anxiety and Depression Corneal Subepithelial Haze of Left Eye Refractive Error History of Strabismus Surgery Vitreous Syneresis of Both Eyes Left Flank Pain Malodorous Urine Right Kidney Stone Sinus Infection Left Lower Quadrant Abdominal Pain Nausea and Vomiting Abdominal Pain Acute Left-Sided Low Back Pain Without Sciatica Obesity, Class II, Bmi 35-39.9 PAST MEDICAL HISTORY Diagnosis Date Acute medial meniscus tear of right knee Anxiety Asthma ([facility]) Contact dermatitis Recurrence not specified. COVID-19 long hauler Depression Diverticulitis GERD (gastroesophageal reflux disease) Insufficiency fracture of tibia Migraines Obesity, morbid, BMI 40.0-49.9 ([facility]) Primary osteoarthritis of right knee Restless legs syndrome (RLS) Sinus infection PAST SURGICAL HISTORY Procedure Laterality Date CARPAL TUNNEL Right CHOLECYSTECTOMY HX in 1999 KNEE SURGERY HX Right scope and tibial transfer ORTHOPEDICS SURGERY HX Right Right Knee PAST SURGICAL HISTORY OF teeth removed TONSILLECTOMY HX FAMILY HISTORY Problem Relation Age of Onset Stroke Mother Lipids Mother Hypertension Mother Obesity Mother Asthma Mother COPD Mother Lipids Father Hypertension Father Alcohol/Drug Father Restless legs syndrome No Family History Obstructive Sleep Apnea No Family History Social History Tobacco Use Smoking status: Never Smokeless tobacco: Never Vaping Use Vaping status: Never Used Substance Use Topics Alcohol use: Yes Comment: social Drug use: Never Comment: No reported history. ALLERGIES Allergen Reactions Bactrim [Sulfametho* Hives Erythromycin Base Hives, Shortness of Breath Sulfa (Sulfonamide * Unknown MEDICATIONS: rOPINIRole (REQUIP) 0.5 mg tabletTAKE 0.5 TABLETS BY MOUTH DAILY AT BEDTIME FOR 2 DAYS, THEN 1 TABLET DAILY AT BEDTIME FOR 5 DAYS, THEN 2 TABLETS DAILY AT BEDTIME.Disp: 198 tabletRfl: 1 dulaglutide (TRULICITY) 1.5 mg/0.5 mL pen injectorInject 1.5 mg subcutaneously one time a week.Disp: 2 mLRfl: 0 tamsulosin (FLOMAX) 0.4 mgTAKE 1 CAPSULE BY MOUTH EVERYDAY AT BEDTIMEDisp: 90 capsuleRfl: 1 fluticasone (FLONASE) 50 mcg/actuation nasal spraySPRAY 1 SPRAY INTO EACH NOSTRIL AT BEDTIMEDisp: 48 mLRfl: 1 topiramate (TOPAMAX) 50 mg tabletTake 3 tablets by mouth once daily.Disp: 270 tabletRfl: 1 gabapentin (NEURONTIN) 300 mg capsuleTake 4 capsules by mouth as directed for 30 days.Disp: 120 capsuleRfl: 0 methocarbamol (ROBAXIN) 750 mg tabletTake 1 tablet by mouth three times a day.Disp: 90 tabletRfl: 2 busPIRone (BUSPAR) 10 mg tabletTake 10 mg by mouth three times a day.Disp: Rfl: celecoxib (CELEBREX) 100 mg capsuleTake 100 mg by mouth two times a day.Disp: Rfl: albuterol HFA (PROAIR HFA) 90 mcg/actuation inhalerInhale 2 puffs as instructed every 4 hours as needed.Disp: 1 eachRfl: 3 montelukast (SINGULAIR) 10 mg tabletTAKE 1 TABLET BY MOUTH EVERYDAY AT BEDTIMEDisp: 90 tabletRfl: 0 hydrOXYzine HCl (ATARAX) 50 mg tabletTAKE 1 TABLET BY MOUTH THREE TIMES A DAY NEEDED FOR ANXIETYDisp: 270 tabletRfl: 1 FLUoxetine (PROZAC) 40 mg capsuleTAKE 1 CAPSULE BY MOUTH EVERY DAYDisp: 90 (more content not included)... [facility] 03-20-2025 Telephone encounter Note Left VM reminding pt of appointment on 03/21/25 and to have xrays completed prior to the day of his appointment. Pt was given hours and locations to have this completed and was advised to call the office with any questions or concerns. Madelaine Belle MA March 20, 2025 8:04 AM [facility] 03-20-2025 Miscellaneous Notes Left VM reminding pt of appointment on 03/21/25 and to have xrays completed prior to the day of his appointment. Pt was given hours and locations to have this completed and was advised to call the office with any questions or concerns. Madelaine Belle MA March 20, 2025 8:04 AM documented in this encounter [facility] 03-19-2025 Telephone encounter Note Left VM reminding pt of appointment on 03/21/25 and to have xrays completed prior to the day of his appointment. Pt was given hours and locations to have this completed and was advised to call the office with any questions or concerns. Precious Rogers MA March 19, 2025 3:54 PM [facility] 03-19-2025 Miscellaneous Notes Left VM reminding pt of appointment on 03/21/25 and to have xrays completed prior to the day of his appointment. Pt was given hours and locations to have this completed and was advised to call the office with any questions or concerns. Precious Rogers MA March 19, 2025 3:54 PM documented in this encounter [facility] 03-12-2025 Telephone encounter Note Pharmacy faxed requesting the following refill Refill(s) Requested: Requested Prescriptions Pending Prescriptions Disp Refills dulaglutide (TRULICITY) 0.75 mg/0.5 mL pen injector 2 mL 0 Sig: Inject 0.75 mg subcutaneously one time a week. ALLERGIES Allergen Reactions Bactrim [Sulfametho* Hives Erythromycin Base Hives, Shortness of Breath Sulfa (Sulfonamide * Unknown (home) [phone] (cell) Last Office Visit Date: 02/12/2025 Last Distance Health Visit: 12/11/2024 Future Appointment: 05/15/2025 The patients preferred pharmacy has been captured for this encounter? yes Request is for script(s) to be escript to pharmacy. Gemini Avalos LPN [facility] 03-12-2025 Miscellaneous Notes Pharmacy faxed requesting the following refill Refill(s) Requested: Requested Prescriptions Pending Prescriptions Disp Refills dulaglutide (TRULICITY) 0.75 mg/0.5 mL pen injector 2 mL 0 Sig: Inject 0.75 mg subcutaneously one time a week. ALLERGIES Allergen Reactions Bactrim [Sulfametho* Hives Erythromycin Base Hives, Shortness of Breath Sulfa (Sulfonamide * Unknown (home) [phone] (cell) Last Office Visit Date: 02/12/2025 Last [facility] Visit: 12/11/2024 Future Appointment: 05/15/2025 The patients preferred pharmacy has been captured for this encounter? yes Request is for script(s) to be escript to pharmacy. Gemini Avalos LPN documented in this encounter [facility] 03-08-2025 Note [facility] 03-08-2025 History of Present illness Narrative ED Follow Up: Patient discharged from [facility] on 03/07/2025. 1. How are you feeling since your ED visit? Ok sore Have your symptoms improved or resolved? No 2. Were you prescribed any medications while in the ED or advised to stop any medication? No - If yes, were you able to fill your prescriptions? Not applicable -if stopped medication, what was the medication? 3. Were you advised to schedule a follow up appointment with your provider? Yes - If no, Do you feel like you need an appointment scheduled? No - If yes, Do you need this scheduled now or has this already been scheduled? No 4. Were you able to contact the office or transportation solutions manager provider prior to your ED visit? No 5. Is there anything else I can do for you today? No Following up with ortho for the finger. documented in this encounter [facility] 03-06-2025 Telephone encounter Note Requesting 90 day [facility] 03-06-2025 Miscellaneous Notes Requesting 90 day documented in this encounter [facility] 03-06-2025 Telephone encounter Note Requesting 90 day supply [facility] 03-06-2025 Miscellaneous Notes Requesting 90 day supply documented in this encounter [facility] 03-02-2025 Telephone encounter Note Summary: NO SHOW (FIRST) No Show Documentation Sam Campbell Rai no showed for an appointment on 03-02-25 with Tre Serrano MD at 1:15pm. He was scheduled for right wrist pain follow up. I called and left a voicemail regarding his missed appointment. Sam stated the reason that he missed his appointment was because Did not answer . Resources discussed/offered to patient: left voicemail with number for patient to call back and reschedule his appt. No show determined to be fault of patient: Yes This is the patients first no show in the last 12 months. Patient was NOT rescheduled. Letter mailed : Yes Is this the Third or Fourth "No Show"? No Jazmyne Morejon March 02, 2025 3:15 PM [facility] 03-02-2025 Miscellaneous Notes Summary: NO SHOW (FIRST) No Show Documentation Sam Rai no showed for an appointment on 03-02-25 with Tre Serrano MD at 1:15pm. He was scheduled for right wrist pain follow up. I called and left a voicemail regarding his missed appointment. Sam stated the reason that he missed his appointment was because Did not answer . Resources discussed/offered to patient: left voicemail with number for patient to call back and reschedule his appt. No show determined to be fault of patient: Yes This is the patients first no show in the last 12 months. Patient was NOT rescheduled. Letter mailed : Yes Is this the Third or Fourth "No Show"? No Jazmyne Morejon March 02, 2025 3:15 PM documented in this encounter [facility] 02-15-2025 Note [facility] 02-15-2025 History of Present illness Narrative ED Follow Up: Patient discharged from [facility] ED on 02/14/25. 1. How are you feeling since your ED visit? Still in a little bit of pain Have your symptoms improved or resolved? No 2. Were you prescribed any medications while in the ED or advised to stop any medication? Yes - If yes, were you able to fill your prescriptions? No -if stopped medication, what was the medication? 3. Were you advised to schedule a follow up appointment with your provider? Yes - If no, Do you feel like you need an appointment scheduled? No - If yes, Do you need this scheduled now or has this already been scheduled? No 4. Were you able to contact the office or transportation solutions manager provider prior to your ED visit? No 5. Is there anything else I can do for you today? No Following up with Urology. Will call if need appt with Remi. documented in this encounter [facility] 02-13-2025 Telephone encounter Note Results sent in my chart [facility] 02-13-2025 Miscellaneous Notes Results sent in my chart documented in this encounter [facility] 02-13-2025 Telephone encounter Note Med pend [facility] 02-13-2025 Miscellaneous Notes Med pend documented in this encounter [facility] 02-12-2025 Telephone encounter Note Results sent in my chart [facility] 02-12-2025 Miscellaneous Notes Results sent in my chart documented in this encounter [facility] 02-12-2025 Telephone encounter Note Please advise. Not covered on plan ( Did not receive a PA for this) [facility] 02-12-2025 Miscellaneous Notes Please advise. Not covered on plan ( Did not receive a PA for this) documented in this encounter [facility] 02-12-2025 Note [facility] 02-12-2025 History of Present illness Narrative Patient has been identified by name and date of : Yes Sam is here for an injection of Vitamin B12 Dose: 1 Route: Intramuscular Given without incident. 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 Lot #: [id number] [facility] #: [id number] Expiration Date: 08/30/26 Remi Ruth CNP present in clinic at time of injection. The date due for the next injection is 30 days . Chloe Mc LPN Images from the original note were not included. [facility] [address] [place] [address] Date of Evaluation: 02/12/2025 Patient Name: Sam Rai : 1975 Chief Complaint: Patient presents with: Medication Follow-up: Medication review over weekend started with blood in urine and lower back pain ( was DX with Kidney stone in past) Subjective HPI Mr. Rai is a 49 year old male who presents for: Multiple concerns - Reports right flank pain and hematuria that started over the weekend. Reports hx of kidney stones. No fever or chills. No dysuria. - Reports the gabapentin dose for his restless legs is wearing off too early. Would like to discuss increasing or changing this medication. - Would like to discuss weight loss options as he would like to schedule a knee replacement but needs to decrease his weight prior to surgery. Review of Systems Constitutional: Negative for activity change, appetite change, chills and fever. HENT: Negative for ear pain, hearing loss, sinus pressure, sinus pain, sore throat and trouble swallowing. Eyes: Negative for visual disturbance. Respiratory: Negative for cough, chest tightness, shortness of breath and wheezing. Cardiovascular: Negative for chest pain, palpitations and leg swelling. Gastrointestinal: Negative for abdominal pain, diarrhea, nausea and vomiting. Genitourinary: Positive for flank pain and hematuria. Negative for dysuria and frequency. Musculoskeletal: Positive for arthralgias. Negative for myalgias. Skin: Negative for pallor, rash and wound. Neurological: Negative for dizziness, light-headedness, numbness and headaches. Psychiatric/Behavioral: Negative for behavioral problems, confusion, hallucinations and suicidal ideas. PAST MEDICAL HISTORY Diagnosis Date Acute medial meniscus tear of right knee Anxiety Asthma (HCC) Contact dermatitis Recurrence not specified. COVID-19 long hauler Depression Diverticulitis GERD (gastroesophageal reflux disease) Insufficiency fracture of tibia Migraines Obesity, morbid, BMI 40.0-49.9 ([facility]) Primary osteoarthritis of right knee Restless legs syndrome (RLS) Sinus infection PAST SURGICAL HISTORY Procedure Laterality Date CARPAL TUNNEL Right CHOLECYSTECTOMY HX in 1999 KNEE SURGERY HX Right scope and tibial transfer ORTHOPEDICS SURGERY HX Right Right Knee PAST SURGICAL HISTORY OF teeth removed TONSILLECTOMY HX FAMILY HISTORY Problem Relation Age of Onset Stroke Mother Lipids Mother Hypertension Mother Obesity Mother Asthma Mother COPD Mother Lipids Father Hypertension Father Alcohol/Drug Father Restless legs syndrome No Family History Obstructive Sleep Apnea No Family History Social History Tobacco Use Smoking status: Never Smokeless tobacco: Never Vaping Use Vaping status: Never Used Substance Use Topics Alcohol use: Yes Comment: social Drug use: Never Comment: No reported history. Current Outpatient Medications Medication Sig busPIRone (BUSPAR) 10 mg tablet Take 10 mg by mouth three times a day. celecoxib (CELEBREX) 100 mg capsule Take 100 mg by mouth two times a day. amoxicillin-clavulanate potassium (AUGMENTIN) 875-125 mg per tablet Take 1 tablet by mouth two times a day for 10 days. albuterol HFA (PROAIR HFA) 90 mcg/actuation inhaler Inhale 2 puffs as instructed every 4 hours as needed. montelukast (SINGULAIR) 10 mg tablet TAKE 1 TABLET BY MOUTH EVERYDAY AT BEDTIME fluticasone (FLONASE) 50 mcg/actuation nasal spray SPRAY 1 SPRAY INTO EACH NOSTRIL AT BEDTIME hydrOXYzine HCl (ATARAX) 50 mg tablet TAKE 1 TABLET BY MOUTH THREE TIMES A DAY NEEDED FOR ANXIETY FLUoxetine (PROZAC) 40 mg capsule TAKE 1 CAPSULE BY MOUTH EVERY DAY traZODone (DESYREL) 100 mg tablet TAKE 2 TABLETS BY MOUTH AT BEDTIME SUMAtriptan (IMITREX) 50 mg tablet Take 1 tablet (50 mg) by mouth as needed for migraine headache (see administration instructions). May repeat dose after 2 hours if needed. Maximum daily dose is 200 mg per day. cholecalciferol, Vitamin D3, (VITAMIN D3) 1,250 mcg (50,000 unit) cap capsule Take 1 capsule by mouth one time a week for 10 doses. sildenafil (VIAGRA) 100 mg tablet Take 1 tablet by mouth once daily as needed. Take 30-60 minutes before sexual activity. valACYclovir (VALTREX) 500 mg tablet Take 1 tablet by mouth once daily. topiramate (TOPAMAX) 50 mg tablet Take 3 tablets by mouth once daily. methocarbamol 1,000 mg tablet Take 1 tablet by mouth three times a day. gabapentin (NEURONTIN) 300 mg capsule Take 4 capsules by mouth as directed for 30 days. rOPINIRole (REQUIP) 0.5 mg tablet Take 0.5 tablets by mouth daily at bedtime for 2 days, THEN 1 tablet daily at bedtime for 5 days, THEN 2 tablets daily at bedtime. dulaglutide (TRULICITY) 0.75 mg/0.5 mL pen injector Inject 0.75 mg subcutaneously one time a week. tamsulosin (FLOMAX) 0.4 mg Take 1 capsule by mouth daily at bedtime. Current Facility-Administered Medications Medication Dose Route Frequency cyanocobalamin 1,000 mcg injection 1,000 mcg INTRAMUSCULAR q 4 WEEKS I have confirmed and edited as necessary the chief complaint, medications, past medical, family and social histories obtained by others. Objective BP 117/82 Pulse 79 Resp 16 Ht 5' 7" (1.70m) Wt 270 lb (122.5kg) SpO2 98% BMI 42.28 kg/(m^2). Physical Exam Vitals reviewed. Constitutional: General: He is not in acute distress. Appearance: Normal appearance. He is normal weight. HENT: Head: Normocephalic. Eyes: Extraocular Movements: Extraocular movements intact. Conjunctiva/sclera: Conjunctivae normal. Pupils: Pupils are equal, round, and reactive to light. Cardiovascular: Rate and Rhythm: Normal rate and regular rhythm. Pulses: Normal pulses. Heart sounds: Normal heart sounds. No murmur heard. No friction rub. No gallop. Pulmonary: Effort: Pulmonary effort is normal. Breath sounds: Normal breath sounds. No wheezing, rhonchi or rales. Abdominal: General: Bowel sounds are normal. Palpations: Abdomen is soft. Tenderness: There is right CVA tenderness. There is no left CVA tenderness. Musculoskeletal: General: Tenderness present. Normal range of motion. Cervical back: Normal range of motion. Right lower leg: No edema. Left lower leg: No edema. Lymphadenopathy: Cervical: No cervical adenopathy. Skin: General: Skin is warm and dry. Findings: No lesion or rash. Neurological: General: No focal deficit present. Mental Status: He is alert and oriented to person, place, and time. Mental status is at baseline. Psychiatric: Mood and Affect: Mood normal. Behavior: Behavior normal. Data Reviewed: Most recent labs and imaging results. ASSESSMENT/PLAN: 1. Recurrent sinus infections - ICD9: 473.9, ICD10: J32.9 (primary diagnosis) - Given multiple sinus infections in the past few months, would like him to see ENT for an evaluation. - CONSULT TO ENT 2. Muscle spasm of back - ICD9: 724.8, ICD10: M62.830 - METHOCARBAMOL 1,000 MG TABLET 3. Restless leg syndrome - ICD9: 333.94, ICD10: G25.81 Discussed trial of Requip, will titrate off gabapentin over the course of the next 2 weeks. Instructions provided to patient to decrease by one tablet every 5 days. - METHOCARBAMOL 1,000 MG TABLET - GABAPENTIN 300 MG CAPSULE - ROPINIROLE 0.5 MG TABLET 4. Intractable migraine without status migrainosus, unspecified migraine type - ICD9: 346.91, ICD10: G43.919 - GABAPENTIN 300 MG CAPSULE 5. Hematuria, unspecified type - ICD9: 599.70, ICD10: R31.9 Would like to rule out Kidney stone given symptoms. - URINALYSIS (WITH MICROSCOPIC) WITH CULTURE IF INDICATED - CT FLANK WO IVCON - BASIC METABOLIC PANEL - COMPLETE BLOOD COUNT AND DIFFERENTIAL - TAMSULOSIN 0.4 MG CAPSULE 6. Flank pain - ICD9: 789.09, ICD10: R10.9 Differential Diagnosis includes Kidney stones/colic - Labs of CBC with Diff, CMP, and Urine analysis - Work up with CT flank study - URINALYSIS (WITH MICROSCOPIC) WITH CULTURE IF INDICATED - CT FLANK WO IVCON - BASIC METABOLIC PANEL - COMPLETE BLOOD COUNT AND DIFFERENTIAL - TAMSULOSIN 0.4 MG CAPSULE 7. Pre-diabetes - ICD9: 790.29, ICD10: R73.03 - DULAGLUTIDE 0.75 MG/0.5 ML SUBCUTANEOUS PEN INJECTOR Remi Ruth APRN.PIG MACHINE CRANE OPERATOR Return in about 3 months (around 05/14/2025) for follow up. Discussed the above with the patient using shared decision making. The patient is in agreement with the diagnostic and treatment plans. documented in this encounter [facility] 02-12-2025 Note [facility] 02-09-2025 Lina Chowdhury APRN.CNP - 02/09/2025 10:39 AM EDT ASSESSMENT/PLAN: 1. Acute non-recurrent pansinusitis - ICD9: 461.8, ICD10: J01.40 (primary diagnosis) - Supportive care with plenty of fluids, rest, and analgesia prn. What is sinusitis? -- Sinusitis is a condition that can cause a stuffy nose, pain in the face, and yellow or green discharge (mucus) from the nose. The sinuses are hollow areas in the bones of the face (figure 1). They have a thin lining that normally makes a small amount of mucus. When this lining gets infected, it swells and makes extra mucus. This causes symptoms. Sinusitis can occur when a person gets sick with a cold. The germs causing the cold can also infect the sinuses. Many times, a person feels like his or her cold is getting better. But then he or she gets sinusitis and begins to feel sick again. What are the symptoms of sinusitis? -- Common symptoms of sinusitis include: ?Stuffy or blocked nose ?Thick yellow or green discharge from the nose ?Pain in the teeth ?Pain or pressure in the face - This often feels worse when a person bends forward. People with sinusitis can also have other symptoms that include: ?Fever ?Cough ?Trouble smelling ?Ear pressure or fullness ?Headache ?Bad breath ?Feeling tired Most of the time, symptoms start to improve in 7 to 10 days. Should I see a doctor or nurse? -- See your doctor or nurse if your symptoms last more than 10 days, or if your symptoms get better at first but then get worse. Sometimes, sinusitis can lead to serious problems. See your doctor or nurse right away (do not wait 10 days) if you have: ?Fever higher than 102 F (38.9 C) ?Sudden and severe pain in the face and head ?Trouble seeing or seeing double ?Trouble thinking clearly ?Swelling or redness around one or both eyes ?A stiff neck Is there anything I can do on my own to feel better? -- Yes. To reduce your symptoms, you can: ?Take an [id number]-[id number] pain reliever to reduce the pain ?Rinse your nose and sinuses with salt water a few times a day - Ask your doctor or nurse about the best way to do this. Antihistamines do not improve symptoms of sinusitis. Common antihistamines include diphenhydramine (sample brand name: Benadryl), chlorpheniramine (sample brand name: Chlor-Trimeton), loratadine (sample brand name: Claritin), and cetirizine (sample brand name: Zyrtec). They can treat allergies, but not sinus infections, and could increase your discomfort by drying the lining of your nose and sinuses, or making you tired. Your doctor might also prescribe a steroid nose spray to reduce the swelling in your nose. (Steroid nose sprays do not contain the same steroids that athletes take to build muscle.) How is sinusitis treated? -- Most of the time, sinusitis does not need to be treated with antibiotic medicines. This is because most sinusitis is caused by viruses - not bacteria - and antibiotics do not kill viruses. Many people get over sinus infections without antibiotics. Some people with sinusitis do need treatment with antibiotics. If your symptoms have not improved after 10 days, ask your doctor if you should take antibiotics. Your doctor might recommend that you wait 1 more week to see if your symptoms improve. But if you have symptoms such as a fever or a lot of pain, he or she might prescribe antibiotics. It is important to follow your doctor's instructions about taking your antibiotics. What if my symptoms do not get better? -- If your symptoms do not get better, talk with your doctor or nurse. He or she might order tests to figure out why you still have symptoms. These can include: ?CT scan or other imaging tests - Imaging tests create pictures of the inside of the body. ?A test to look inside the sinuses - For this test, a doctor puts a thin tube with a camera on the end into the nose and up into the sinuses. Some people get a lot of sinus infections or have symptoms that last at least 3 months. These people can have a different type of sinusitis called "chronic sinusitis." Chronic sinusitis can be caused by different things. For example, some people have growths in their nose or sinuses that are called "polyps." Other people have allergies that cause their symptoms. Chronic sinusitis can be treated in different ways. If you have chronic sinusitis, talk with your doctor about which treatments are right for you. - AMOXICILLIN 875 MG-POTASSIUM CLAVULANATE 125 MG TABLET 2. Mild intermittent asthma without complication (HCC) - ICD9: 493.90, ICD10: J45.20 - ALBUTEROL SULFATE HFA 90 MCG/ACTUATION AEROSOL INHALER Lina Duarte APRN.PIG MACHINE CRANE OPERATOR documented in this encounter [facility] 02-09-2025 Note [facility] 02-09-2025 History of Present illness Narrative Sam Rai is a 49 year old male who presents for Illness (Discuss sinus congestion and cough (going on for 4 days)) Here for illness. Has not done a covid test. He has tried sudafed for symptoms. The history is provided by the patient. No case assistant was used. Illness Episode onset: 4 days. The problem has been gradually worsening. Relieved by: sudafed. Associated symptoms include congestion, ear pain, headaches, rhinorrhea, swollen glands, cough and wheezing. Pertinent negatives include no fever, no diarrhea, no nausea, no vomiting, no ear discharge, no hearing loss, no sore throat and no stridor. The temperature was taken using an oral thermometer. The cough is Productive (worse in the morning or laying down at night). There is Chest congestion. There were no sick contacts. Last 3 Encounter BP Readings: Date: BP: 02/09/2025 106/72 01/27/2025 104/57 12/20/2024 108/74 Last 2 Encounter Wt Readings: Date: Wt: 02/09/2025 122.5 kg (270 lb) 01/27/2025 115.7 kg (255 lb) BP 106/72 Pulse 65 Temp 97.8 Resp 16 Ht 5' 7" (1.70m) Wt 270 lb (122.5kg) SpO2 98% BMI 42.28 kg/(m^2). PAST MEDICAL HISTORY Diagnosis Date Acute medial meniscus tear of right knee Anxiety Asthma (HCC) Contact dermatitis Recurrence not specified. COVID-19 long hauler Depression Diverticulitis GERD (gastroesophageal reflux disease) Insufficiency fracture of tibia Migraines Obesity, morbid, BMI 40.0-49.9 ([facility]) Primary osteoarthritis of right knee Restless legs syndrome (RLS) Sinus infection PAST SURGICAL HISTORY Procedure Laterality Date CARPAL TUNNEL Right CHOLECYSTECTOMY HX in 1999 KNEE SURGERY HX Right scope and tibial transfer ORTHOPEDICS SURGERY HX Right Right Knee PAST SURGICAL HISTORY OF teeth removed TONSILLECTOMY HX Social History Tobacco Use Smoking status: Never Smokeless tobacco: Never Vaping Use Vaping status: Never Used Substance Use Topics Alcohol use: Yes Comment: social Drug use: Never Comment: No reported history. Family history reviewed. ALLERGIES Allergen Reactions Bactrim [Sulfametho* Hives Erythromycin Base Hives, Shortness of Breath Sulfa (Sulfonamide * Unknown Current Outpatient Medications Medication Sig busPIRone (BUSPAR) 10 mg tablet Take 10 mg by mouth three times a day. celecoxib (CELEBREX) 100 mg capsule Take 100 mg by mouth two times a day. montelukast (SINGULAIR) 10 mg tablet TAKE 1 TABLET BY MOUTH EVERYDAY AT BEDTIME fluticasone (FLONASE) 50 mcg/actuation nasal spray SPRAY 1 SPRAY INTO EACH NOSTRIL AT BEDTIME hydrOXYzine HCl (ATARAX) 50 mg tablet TAKE 1 TABLET BY MOUTH THREE TIMES A DAY NEEDED FOR ANXIETY FLUoxetine (PROZAC) 40 mg capsule TAKE 1 CAPSULE BY MOUTH EVERY DAY traZODone (DESYREL) 100 mg tablet TAKE 2 TABLETS BY MOUTH AT BEDTIME SUMAtriptan (IMITREX) 50 mg tablet Take 1 tablet (50 mg) by mouth as needed for migraine headache (see administration instructions). May repeat dose after 2 hours if needed. Maximum daily dose is 200 mg per day. sildenafil (VIAGRA) 100 mg tablet Take 1 tablet by mouth once daily as needed. Take 30-60 minutes before sexual activity. methocarbamol 1,000 mg tablet Take 1 tablet by mouth three times a day. valACYclovir (VALTREX) 500 mg tablet Take 1 tablet by mouth once daily. topiramate (TOPAMAX) 50 mg tablet Take 3 tablets by mouth once daily. gabapentin (NEURONTIN) 300 mg capsule Take 4 capsules by mouth as directed for 180 days. albuterol HFA (PROAIR HFA) 90 mcg/actuation inhaler Inhale 2 Puffs as instructed every 4 hours as needed. cholecalciferol, Vitamin D3, (VITAMIN D3) 1,250 mcg (50,000 unit) cap capsule Take 1 capsule by mouth one time a week for 10 doses. Current Facility-Administered Medications Medication Dose Route Frequency cyanocobalamin 1,000 mcg injection 1,000 mcg INTRAMUSCULAR q 4 WEEKS Review of Systems Constitutional: Negative for chills, diaphoresis and fever. HENT: Positive for congestion, ear pain, rhinorrhea and sinus pain. Negative for ear discharge, hearing loss and sore throat. Respiratory: Positive for cough, sputum production, shortness of breath and wheezing. Negative for hemoptysis and stridor. Gastrointestinal: Negative for diarrhea, nausea and vomiting. Neurological: Positive for headaches. Physical Exam Vitals reviewed. Constitutional: Appearance: Normal appearance. He is obese. HENT: Head: Normocephalic and atraumatic. Salivary Glands: Right salivary gland is not tender. Left salivary gland is not tender. Right Ear: Tympanic membrane, ear canal and external ear normal. There is no impacted cerumen. Left Ear: Tympanic membrane, ear canal and external ear normal. There is no impacted cerumen. Nose: Congestion and rhinorrhea present. Right Sinus: Maxillary sinus tenderness and frontal sinus tenderness present. Left Sinus: Maxillary sinus tenderness and frontal sinus tenderness present. Mouth/Throat: Mouth: Mucous membranes are moist. Eyes: Conjunctiva/sclera: Conjunctivae normal. Pupils: Pupils are equal, round, and reactive to light. Cardiovascular: Rate and Rhythm: Normal rate and regular rhythm. Pulses: Normal pulses. Heart sounds: Normal heart sounds. No murmur heard. Pulmonary: Effort: Pulmonary effort is normal. No respiratory distress. Breath sounds: Normal breath sounds. Abdominal: General: Bowel sounds are normal. Palpations: Abdomen is soft. Musculoskeletal: General: Normal range of motion. Cervical back: Normal range of motion and neck supple. Lymphadenopathy: Cervical: Cervical adenopathy present. Skin: General: Skin is warm and dry. Capillary Refill: Capillary refill takes less than 2 seconds. Neurological: Mental Status: He is alert and oriented to person, place, and time. Psychiatric: Mood and Affect: Mood normal. Behavior: Behavior normal. Thought Content: Thought content normal. Judgment: Judgment normal. ASSESSMENT/PLAN: 1. Acute non-recurrent pansinusitis - ICD9: 461.8, ICD10: J01.40 (primary diagnosis) - Supportive care with plenty of fluids, rest, and analgesia prn. What is sinusitis? -- Sinusitis is a condition that can cause a stuffy nose, pain in the face, and yellow or green discharge (mucus) from the nose. The sinuses are hollow areas in the bones of the face (figure 1). They have a thin lining that normally makes a small amount of mucus. When this lining gets infected, it swells and makes extra mucus. This causes symptoms. Sinusitis can occur when a person gets sick with a cold. The germs causing the cold can also infect the sinuses. Many times, a person feels like his or her cold is getting better. But then he or she gets sinusitis and begins to feel sick again. What are the symptoms of sinusitis? -- Common symptoms of sinusitis include: ?Stuffy or blocked nose ?Thick yellow or green discharge from the nose ?Pain in the teeth ?Pain or pressure in the face - This often feels worse when a person bends forward. People with sinusitis can also have other symptoms that include: ?Fever ?Cough ?Trouble smelling ?Ear pressure or fullness ?Headache ?Bad breath ?Feeling tired Most of the time, symptoms start to improve in 7 to 10 days. Should I see a doctor or nurse? -- See your doctor or nurse if your symptoms last more than 10 days, or if your symptoms get better at first but then get worse. Sometimes, sinusitis can lead to serious problems. See your doctor or nurse right away (do not wait 10 days) if you have: ?Fever higher than 102 F (38.9 C) ?Sudden and severe pain in the face and head ?Trouble seeing or seeing double ?Trouble thinking clearly ?Swelling or redness around one or both eyes ?A stiff neck Is there anything I can do on my own to feel better? -- Yes. To reduce your symptoms, you can: ?Take an [id number]-[id number] pain reliever to reduce the pain ?Rinse your nose and sinuses with salt water a few times a day - Ask your doctor or nurse about the best way to do this. Antihistamines do not improve symptoms of sinusitis. Common antihistamines include diphenhydramine (sample brand name: Benadryl), chlorpheniramine (sample brand name: Chlor-Trimeton), loratadine (sample brand name: Claritin), and cetirizine (sample brand name: Zyrtec). They can treat allergies, but not sinus infections, and could increase your discomfort by drying the lining of your nose and sinuses, or making you tired. Your doctor might also prescribe a steroid nose spray to reduce the swelling in your nose. (Steroid nose sprays do not contain the same steroids that athletes take to build muscle.) How is sinusitis treated? -- Most of the time, sinusitis does not need to be treated with antibiotic medicines. This is because most sinusitis is caused by viruses - not bacteria - and antibiotics do not kill viruses. Many people get over sinus infections without antibiotics. Some people with sinusitis do need treatment with antibiotics. If your symptoms have not improved after 10 days, ask your doctor if you should take antibiotics. Your doctor might recommend that you wait 1 more week to see if your symptoms improve. But if you have symptoms such as a fever or a lot of pain, he or she might prescribe antibiotics. It is important to follow your doctor's instructions about taking your antibiotics. What if my symptoms do not get better? -- If your symptoms do not get better, talk with your doctor or nurse. He or she might order tests to figure out why you still have symptoms. These can include: ?CT scan or other imaging tests - Imaging tests create pictures of the inside of the body. ?A test to look inside the sinuses - For this test, a doctor puts a thin tube with a camera on the end into the nose and up into the sinuses. Some people get a lot of sinus infections or have symptoms that last at least 3 months. These people can have a different type of sinusitis called "chronic sinusitis." Chronic sinusitis can be caused by different things. For example, some people have growths in their nose or sinuses that are called "polyps." Other people have allergies that cause their symptoms. Chronic sinusitis can be treated in different ways. If you have chronic sinusitis, talk with your doctor about which treatments are right for you. - AMOXICILLIN 875 MG-POTASSIUM CLAVULANATE 125 MG TABLET 2. Mild intermittent asthma without complication (HCC) - ICD9: 493.90, ICD10: J45.20 - ALBUTEROL SULFATE HFA 90 MCG/ACTUATION AEROSOL INHALER SADIA Calle APRN.CNP No follow-ups on file. Discussed above plan with patient. Pt agreeable with above plan. documented in this encounter [facility] 02-02-2025 Telephone encounter Note 12/20 last OV med pend [facility] 02-02-2025 Miscellaneous Notes 12/20 last OV med pend documented in this encounter [facility] 01-30-2025 Telephone encounter Note 12/20 last OV med pend [facility] 01-30-2025 Miscellaneous Notes 12/20 last OV med pend documented in this encounter [facility] 01-29-2025 Note [facility] 01-29-2025 History of Present illness Narrative ED Follow Up: Patient discharged from [facility] ED on 01/27/25. 1. How are you feeling since your ED visit? Knee is sore Have your symptoms improved or resolved? No 2. Were you prescribed any medications while in the ED or advised to stop any medication? Yes - If yes, were you able to fill your prescriptions? Yes -if stopped medication, what was the medication? 3. Were you advised to schedule a follow up appointment with your provider? Yes - If no, Do you feel like you need an appointment scheduled? No - If yes, Do you need this scheduled now or has this already been scheduled? No 4. Were you able to contact the office or transportation solutions manager provider prior to your ED visit? No 5. Is there anything else I can do for you today? No Going to see about following up with ortho if it will be to long he will call and come see Remi documented in this encounter [facility] 01-05-2025 Telephone encounter Note Last visit 12/20/24 and no upcoming visit. Katelyn Ferguson MA [facility] 01-05-2025 Miscellaneous Notes Last visit 12/20/24 and no upcoming visit. Katelyn Ferguson MA documented in this encounter [facility] 01-02-2025 Telephone encounter Note Med pend [facility] 01-02-2025 Miscellaneous Notes Med pend documented in this encounter [facility] 12-29-2024 History of Present illness Narrative Images from the original note were not included. HPI: aSm Rai is a 49 year old male whose complaint is documented in pain description below. Patient here for evaluation of R wrist. Pain over volar aspect of the wrist. THe more I use it the worse it gets-extends up the arm. THe thenar emminence is painful. Present x 3+ months. Small repeitive motions are painful, such as using thumb, twisting the wrist; playing on his phone is painful. Pain gets bad every few days. RHD. 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 Using oral ibuprofen-mildly helpful, but if pain is bad doesn't help.; topical arthritis cream (not really helpful) PAIN EVALUATION 12/29/2024 1447 12/29/2024 1449 12/29/2024 1451 Pain Level: -- -- 6 Pain Location: Wrist-Left -- -- right wrist Description: -- Dull;Throbbing;Sharp;Radiating -- Duration Amount of Time: -- 2 -- Duration Units: Weeks Months -- Frequency: -- Continuous -- PAST MEDICAL HISTORY Diagnosis Date Acute medial meniscus tear of right knee Anxiety Asthma Contact dermatitis Recurrence not specified. COVID-19 long hauler Depression Diverticulitis GERD (gastroesophageal reflux disease) Insufficiency fracture of tibia Migraines Obesity, morbid, BMI 40.0-49.9 ([facility]) Primary osteoarthritis of right knee Restless legs syndrome (RLS) Sinus infection PAST SURGICAL HISTORY Procedure Laterality Date CARPAL TUNNEL Right CHOLECYSTECTOMY HX in 1999 KNEE SURGERY HX Right scope and tibial transfer ORTHOPEDICS SURGERY HX Right Right Knee PAST SURGICAL HISTORY OF teeth removed TONSILLECTOMY HX Social History Tobacco Use Smoking status: Never Smokeless tobacco: Never Vaping Use Vaping status: Never Used Substance Use Topics Alcohol use: Yes Comment: social Drug use: Never Comment: No reported history. Current Outpatient Medications Medication Sig FLUoxetine (PROZAC) 40 mg capsule TAKE 1 CAPSULE BY MOUTH EVERY DAY traZODone (DESYREL) 100 mg tablet TAKE 2 TABLETS BY MOUTH AT BEDTIME clobetasol (TEMOVATE) 0.05 % cream Apply 1 application to affected area two times a day. fluticasone (FLONASE) 50 mcg/actuation nasal spray SPRAY 1 SPRAY INTO EACH NOSTRIL AT BEDTIME SUMAtriptan (IMITREX) 50 mg tablet Take 1 tablet (50 mg) by mouth as needed for migraine headache (see administration instructions). May repeat dose after 2 hours if needed. Maximum daily dose is 200 mg per day. sildenafil (VIAGRA) 100 mg tablet Take 1 tablet by mouth once daily as needed. Take 30-60 minutes before sexual activity. busPIRone (BUSPAR) 10 mg tablet Take 1 tablet by mouth three times a day. montelukast (SINGULAIR) 10 mg tablet take 1 tablet by mouth everyday at bedtime methocarbamol 1,000 mg tablet Take 1 tablet by mouth three times a day. hydrOXYzine HCl (ATARAX) 50 mg tablet Take 1 tablet by mouth three times a day as needed for anxiety. valACYclovir (VALTREX) 500 mg tablet Take 1 tablet by mouth once daily. albuterol HFA (PROVENTIL HFA, VENTOLIN HFA) 90 mcg/actuation inhaler Inhale 2 Puffs as instructed every 4 hours as needed for wheezing/shortness of breath. albuterol HFA (PROAIR HFA) 90 mcg/actuation inhaler Inhale 2 Puffs as instructed every 4 hours as needed. methylPREDNISolone (MEDROL DOSE-PACK) 4 mg Dose-Pack Take as instructed per package. cholecalciferol, Vitamin D3, (VITAMIN D3) 1,250 mcg (50,000 unit) cap capsule Take 1 capsule by mouth one time a week for 10 doses. topiramate (TOPAMAX) 50 mg tablet Take 3 tablets by mouth once daily. gabapentin (NEURONTIN) 300 mg capsule Take 4 capsules by mouth as directed for 180 days. Current Facility-Administered Medications Medication Dose Route Frequency cyanocobalamin 1,000 mcg injection 1,000 mcg INTRAMUSCULAR q 4 WEEKS ALLERGIES Allergen Reactions Bactrim [Sulfametho* Hives Erythromycin Base Hives, Shortness of Breath Sulfa (Sulfonamide * Unknown Resp 16 Ht 5' 7" (1.70m) Wt 260 lb (117.9kg) BMI 40.71 kg/(m^2). Exam: Gen: Pt is a well-appearing, overweight male in NAD Gait: Normal Right wrist/hand: Normal appearance of the wrist and hand. Full range of motion, pain noted over the radial volar aspect of the wrist with dorsiflexion and radial deviation in particular. Tenderness palpation at the insertion of the flexor carpi radialis, extending into the thenar eminence. No palpable defect is noted. No instability at the DRUJ, or ulnar carpal joint. No meaningful snuffbox tenderness. Pain elicited with resisted wrist flexion most notably. Fuel Handler strength normal. Other functional hand strength normal Left wrist hand: Normal appearance, full range of motion, good strength, no tenderness to palpation Neuro: Sensation intact soft touch in the hands bilaterally Upper extremity vascular exam: radial pulses 2+ bilaterally, cap refill < 2 sec B/L, no edema over the UE. Medical Decision Making Data I have reviewed the following data in process of medical decision making: External note from other physician, External report of imaging, External report of EMG, and Independent review of xray images. Lab work. ASSESSMENT: (M77.8) Right wrist tendinitis (primary encounter diagnosis) (M25.531) Wrist pain, acute, right Appears to be FCR tendinitis PLAN: Medical Decision Risks I have discussed the risks and benefits of the following treatments with patient today: New prescription medication, Physical therapy intervention, and continued work as tailor Discussed options for exercise therapy and have referred to formal OT Cock up wrist splint-suggested wearing this to work to avoid wrist flexion position when swelling Medrol Dosepak to reduce acute pain, oral anti-inflammatories after this which she has been taking at home Return in about 8 weeks (around 02/23/2025). Part of this note has been created using voice recognition software. It may contain errors which are inherent in voice-recognition technology. Tre Serrano MD documented in this encounter [facility] 12-29-2024 Note [facility] 12-21-2024 Telephone encounter Note Results sent in my chart [facility] 12-21-2024 Miscellaneous Notes Results sent in my chart ----- Message from Remi Ruth APRN.CNP sent at 12/21/2024 2:22 PM EST ----- No evidence of neuropathy or CTS on EMG. Please follow up with Orthopedics. Remi Ruth APRN.CNP December 21, 2024 2:22 PM documented in this encounter [facility] 12-21-2024 Telephone encounter Note ----- Message from Remi Ruth APRN.CNP sent at 12/21/2024 2:22 PM EST ----- No evidence of neuropathy or CTS on EMG. Please follow up with Orthopedics. Remi Ruth APRN.PIG MACHINE CRANE OPERATOR December 21, 2024 2:22 PM [facility] 12-21-2024 Note HNO ID: [id number] Author: GIUSEPPE FIELDS MD Service: ? Author Type: Physician Type: Progress Notes Filed: 12/21/2024 14:08 Note Text: UNIVERSAL PROTOCOL / SAFETY CHECKLIST Procedure to be Performed: EMG Sign In: A Moment of CARE was completed. Personnel directly involved with the procedure wore the appropriate PPE (Personal Protective Equipment). Patient/Surrogate Stated/Verified: PATIENT VERIFIED(optional for EMERGENT procedures): Patient name, Date of , Relevant allergies, and The intended procedure Time Out Communication: Intended patient and procedure match the source documents. Correct side/site marked and visible. Sign Out: SIGN OUT (optional for EMERGENT procedures): Post-procedure follow-up management communicated and Plan of Care Visit completed when applicable. Mandi Su Emg tech Giuseppe Fields MD [facility] 12-21-2024 History of Present illness Narrative UNIVERSAL PROTOCOL / SAFETY CHECKLIST Procedure to be Performed: EMG Sign In: A Moment of CARE was completed. Personnel directly involved with the procedure wore the appropriate PPE (Personal Protective Equipment). Patient/Surrogate Stated/Verified: PATIENT VERIFIED(optional for EMERGENT procedures): Patient name, Date of , Relevant allergies, and The intended procedure Time Out Communication: Intended patient and procedure match the source documents. Correct side/site marked and visible. Sign Out: SIGN OUT (optional for EMERGENT procedures): Post-procedure follow-up management communicated and Plan of Care Visit completed when applicable. Mandi Su Emg tech Giuseppe Fields MD documented in this encounter [facility] 12-21-2024 Telephone encounter Note Med pend [facility] 12-21-2024 Miscellaneous Notes Med pend documented in this encounter [facility] 12-20-2024 Note [facility] 12-20-2024 History of Present illness Narrative Images from the original note were not included. [facility] [address] [place] [address] Date of Evaluation: 12/20/2024 Patient Name: Sam Rai : 1975 Chief Complaint: Patient presents with: Follow Up: Follow up from sinus infection causing left ear pain Subjective HPI Mr. Rai is a 49 year old male who presents for: Multiple concerns. - Left ear pain- current on Augmentin for recurrent sinusitis. Pain started two days ago. - Eczema patch right lower leg no improvement with betamethasone cream. Review of Systems Constitutional: Negative for activity change, appetite change, chills and fever. HENT: Positive for ear pain. Negative for hearing loss, sinus pressure, sinus pain, sore throat and trouble swallowing. Eyes: Negative for visual disturbance. Respiratory: Negative for cough, chest tightness, shortness of breath and wheezing. Cardiovascular: Negative for chest pain, palpitations and leg swelling. Gastrointestinal: Negative for abdominal pain, diarrhea, nausea and vomiting. Genitourinary: Negative for dysuria and frequency. Musculoskeletal: Negative for arthralgias and myalgias. Skin: Positive for rash. Negative for pallor and wound. Neurological: Negative for dizziness, light-headedness, numbness and headaches. Psychiatric/Behavioral: Negative for behavioral problems, confusion, hallucinations and suicidal ideas. PAST MEDICAL HISTORY Diagnosis Date Acute medial meniscus tear of right knee Anxiety Asthma Contact dermatitis Recurrence not specified. COVID-19 long hauler Depression Diverticulitis GERD (gastroesophageal reflux disease) Insufficiency fracture of tibia Migraines Obesity, morbid, BMI 40.0-49.9 (HCC) Primary osteoarthritis of right knee Restless legs syndrome (RLS) Sinus infection PAST SURGICAL HISTORY Procedure Laterality Date CARPAL TUNNEL Right CHOLECYSTECTOMY HX in 2000 KNEE SURGERY HX Right scope and tibial transfer ORTHOPEDICS SURGERY HX Right Right Knee PAST SURGICAL HISTORY OF teeth removed TONSILLECTOMY HX FAMILY HISTORY Problem Relation Age of Onset Stroke Mother Lipids Mother Hypertension Mother Obesity Mother Asthma Mother COPD Mother Lipids Father Hypertension Father Alcohol/Drug Father Restless legs syndrome No Family History Obstructive Sleep Apnea No Family History Social History Tobacco Use Smoking status: Never Smokeless tobacco: Never Vaping Use Vaping status: Never Used Substance Use Topics Alcohol use: Yes Comment: social Drug use: Never Comment: No reported history. Current Outpatient Medications Medication Sig fluticasone (FLONASE) 50 mcg/actuation nasal spray SPRAY 1 SPRAY INTO EACH NOSTRIL AT BEDTIME SUMAtriptan (IMITREX) 50 mg tablet Take 1 tablet (50 mg) by mouth as needed for migraine headache (see administration instructions). May repeat dose after 2 hours if needed. Maximum daily dose is 200 mg per day. cholecalciferol, Vitamin D3, (VITAMIN D3) 1,250 mcg (50,000 unit) cap capsule Take 1 capsule by mouth one time a week for 10 doses. sildenafil (VIAGRA) 100 mg tablet Take 1 tablet by mouth once daily as needed. Take 30-60 minutes before sexual activity. busPIRone (BUSPAR) 10 mg tablet Take 1 tablet by mouth three times a day. montelukast (SINGULAIR) 10 mg tablet take 1 tablet by mouth everyday at bedtime methocarbamol 1,000 mg tablet Take 1 tablet by mouth three times a day. FLUoxetine (PROZAC) 40 mg capsule Take 1 capsule by mouth once daily. traZODone (DESYREL) 100 mg tablet Take 2 tablets by mouth daily at bedtime. hydrOXYzine HCl (ATARAX) 50 mg tablet Take 1 tablet by mouth three times a day as needed for anxiety. valACYclovir (VALTREX) 500 mg tablet Take 1 tablet by mouth once daily. topiramate (TOPAMAX) 50 mg tablet Take 3 tablets by mouth once daily. gabapentin (NEURONTIN) 300 mg capsule Take 4 capsules by mouth as directed for 180 days. albuterol HFA (PROVENTIL HFA, VENTOLIN HFA) 90 mcg/actuation inhaler Inhale 2 Puffs as instructed every 4 hours as needed for wheezing/shortness of breath. albuterol HFA (PROAIR HFA) 90 mcg/actuation inhaler Inhale 2 Puffs as instructed every 4 hours as needed. wpojcwfd-hapjuvevo-kdwpavjszlojvm (CORTISPORIN) 3.5-10,000-1 mg/mL-unit/mL-% otic suspension Use 4 Drops in the left ear four times daily for 5 days. clobetasol (TEMOVATE) 0.05 % cream Apply 1 application to affected area two times a day. Current Facility-Administered Medications Medication Dose Route Frequency cyanocobalamin 1,000 mcg injection 1,000 mcg INTRAMUSCULAR q 4 WEEKS I have confirmed and edited as necessary the chief complaint, medications, past medical, family and social histories obtained by others. Objective BP 108/74 Pulse 82 Resp 16 Ht 5' 7" (1.70m) Wt 260 lb (117.9kg) SpO2 99% BMI 40.71 kg/(m^2). Physical Exam Vitals reviewed. Constitutional: General: He is not in acute distress. Appearance: Normal appearance. He is normal weight. HENT: Head: Normocephalic. Right Ear: Tympanic membrane, ear canal and external ear normal. Left Ear: Hearing normal. Tenderness present. A middle ear effusion is present. There is no impacted cerumen. No foreign body. No mastoid tenderness. No PE tube. No hemotympanum. Tympanic membrane is not injected, scarred, perforated, erythematous, retracted or bulging. Eyes: Extraocular Movements: Extraocular movements intact. Conjunctiva/sclera: Conjunctivae normal. Pupils: Pupils are equal, round, and reactive to light. Cardiovascular: Rate and Rhythm: Normal rate and regular rhythm. Pulses: Normal pulses. Heart sounds: Normal heart sounds. No murmur heard. No friction rub. No gallop. Pulmonary: Effort: Pulmonary effort is normal. Breath sounds: Normal breath sounds. No wheezing, rhonchi or rales. Abdominal: General: Bowel sounds are normal. Palpations: Abdomen is soft. Musculoskeletal: General: Normal range of motion. Cervical back: Normal range of motion. Right lower leg: No edema. Left lower leg: No edema. Lymphadenopathy: Cervical: No cervical adenopathy. Skin: General: Skin is warm and dry. Findings: No lesion or rash. Neurological: General: No focal deficit present. Mental Status: He is alert and oriented to person, place, and time. Mental status is at baseline. Psychiatric: Mood and Affect: Mood normal. Behavior: Behavior normal. Data Reviewed: No new labs ASSESSMENT/PLAN: 1. Earache on left - ICD9: 388.70, ICD10: H92.02 (primary diagnosis) - [id number] 3.5 MG-10,000 UNIT/ML-1 % EAR DROPS,SUSP 2. Eczema, unspecified type - ICD9: 692.9, ICD10: L30.9 - Topical steriod tx - discussed skin care of rash - follow up if symptoms persist or worsen. - CLOBETASOL 0.05 % TOPICAL CREAM Remi Ruth APRN.CNP Return if symptoms worsen or fail to improve. Discussed the above with the patient using shared decision making. The patient is in agreement with the diagnostic and treatment plans. documented in this encounter [facility] 12-18-2024 Telephone encounter Note Message left to sam to call me [facility] 12-18-2024 Miscellaneous Notes Message left to sam to call me I have some disability paperwork on my desk for Sam. I remember discussing this with him, but the details are hazy, can we contact him and see what he was looking for us to do with these papers. Please and thank you. Remi Ruth APRN.CNP December 18, 2024 9:26 AM documented in this encounter [facility] 12-18-2024 Telephone encounter Note I have some disability paperwork on my desk for Sam. I remember discussing this with him, but the details are hazy, can we contact him and see what he was looking for us to do with these papers. Please and thank you. Remi Ruth APRN.CNP December 18, 2024 9:26 AM [facility] 12-11-2024 History of Present illness Narrative AMBULATORY TELEPHONE VISIT Sam Rai has consented to this telephone encounter. Persons Present: patient Chief Complaint/Reason: URI HPI: Reports symptoms of URI. Sinus congestion, pain and pressure. Coughing with mucous production. No sick contacts. Data Reviewed: No new labs ASSESSMENT/PLAN: 1. Acute recurrent sinusitis, unspecified location - ICD9: 461.9, ICD10: J01.91 - Will begin treatment with Augmentin 875 mg PO BID for 14 days - The patient should also be given behind the counter Pseudoephedrine and nasal saline gtts and suction prn for the first 5-7 days of treatment. - Supportive care with plenty of fluids, rest, and analgesia prn. - PSEUDOEPHEDRINE 30 MG TABLET - AMOXICILLIN 875 MG-POTASSIUM CLAVULANATE 125 MG TABLET Remi Ruth APRN.CNP Total Time Spent: 20 minutes documented in this encounter [facility] 12-11-2024 [facility]24 Telephone encounter Note Pharmacy faxed requesting the following refill Refill(s) Requested: Requested Prescriptions Pending Prescriptions Disp Refills fluticasone (FLONASE) 50 mcg/actuation nasal spray [Pharmacy Med Name: FLUTICASONE PROP 50 MCG SPRAY] 24 mL 1 Sig: SPRAY 1 SPRAY INTO EACH NOSTRIL AT BEDTIME ALLERGIES Allergen Reactions Bactrim [Sulfametho* Hives Erythromycin Base Hives, Shortness of Breath Sulfa (Sulfonamide * Unknown (home) [phone] (cell) Last Office Visit Date: 11/09/2024 Last [facility] Visit: 11/21/2024 Future Appointment: Visit date not found The patients preferred pharmacy has been captured for this encounter? yes Request is for script(s) to be escript to pharmacy. Kathryn Jaime MA [facility] 12-08-2024 Miscellaneous Notes Pharmacy faxed requesting the following refill Refill(s) Requested: Requested Prescriptions Pending Prescriptions Disp Refills fluticasone (FLONASE) 50 mcg/actuation nasal spray [Pharmacy Med Name: FLUTICASONE PROP 50 MCG SPRAY] 24 mL 1 Sig: SPRAY 1 SPRAY INTO EACH NOSTRIL AT BEDTIME ALLERGIES Allergen Reactions Bactrim [Sulfametho* Hives Erythromycin Base Hives, Shortness of Breath Sulfa (Sulfonamide * Unknown (home) [phone] (cell) Last Office Visit Date: 11/09/2024 Last [facility] Visit: 11/21/2024 Future Appointment: Visit date not found The patients preferred pharmacy has been captured for this encounter? yes Request is for script(s) to be escript to pharmacy. Kathryn Jaime MA documented in this encounter [facility] 11-30-2024 History of Present illness Narrative Radiology Service Progress Note PATIENT NAME: Sam Rai DATE OF SERVICE: November 30, 2024 TIME: 2:40 PM PATIENT IDENTITY VERIFICATION COMPLETED USING TWO (2) IDENTIFIERS: Name and Date of confirmed by patient verbally. FALL SCREENING: Has the patient had 2 falls in the last year or 1 fall with injury or currently using an Ambulatory Assistive Device (Walker, Cane, Wheelchair, Crutches, etc.)? No PATIENT GENDER DATA: Assigned male at PATIENT RELEVANT IMPLANT DATA REVIEWED: Not Applicable PATIENT PRESENTS WITH AN IMPLANTABLE OR ATTACHED TRUCK BODY BUILDER: No RADIOLOGY DEPARTMENT: General X-ray: Exam(s) Completed: Upper Extremity X-Ray(s): Wrist, right PERIPHERAL IV DATA: Not applicable SIGNED BY: RT Srinivas(R) November 30, 2024 2:40 PM documented in this encounter [facility] 11-30-2024 Note [facility] 11-30-2024 Note [facility] 11-30-2024 History of Present illness Narrative Patient has been identified by name and date of : Yes Sam is here for an injection of Vitamin B12 Dose: 1 Route: Intramuscular Given without incident. Site: left deltoid Supervisor Picking Crew: sagent Lot #: [id number] [facility] #:[id number] Expiration Date: 12/01/25 Remi Ruth PIG MACHINE CRANE OPERATOR present in clinic at time of injection. The date due for the next injection is 30 days . Chloe Mc LPN documented in this encounter [facility] 11-21-2024 Telephone encounter Note Referral placed in portal, confirmation # [id number] Maggi Carmichael November 21, 2024 [facility] 11-21-2024 Miscellaneous Notes Referral placed in portal, confirmation # [id number] Maggi Carmichael November 21, 2024 documented in this encounter [facility] 11-21-2024 Note [facility] 11-21-2024 History of Present illness Narrative VIRTUAL VISIT PROGRESS NOTE This is a virtual visit using [employer] Video Visit. It required patient-provider interaction for the medical decision making as documented below. I have communicated my name and active licensure. The patient's identity and physical location were verified at the time of this visit. Either the patient or their legal patient service representative has been informed of the risks and benefits of -- and alternatives to -- treatment through a remote evaluation and consents to proceed with the evaluation remotely. Sam Rai is a 49 year old male seen for follow up. Anxiety well controlled with the addition of the Buspar. Reports continued right wrist pain despite Voltaren and wrist bracing. Reports hx of "carpal tunnel surgery" in 1996. HISTORY REVIEWED (electronic chart updated): PAST MEDICAL HISTORY Diagnosis Date Acute medial meniscus tear of right knee Anxiety Asthma Contact dermatitis Recurrence not specified. COVID-19 long hauler Depression Diverticulitis GERD (gastroesophageal reflux disease) Insufficiency fracture of tibia Migraines Obesity, morbid, BMI 40.0-49.9 ([facility]) Primary osteoarthritis of right knee Restless legs syndrome (RLS) Sinus infection PAST SURGICAL HISTORY Procedure Laterality Date CARPAL TUNNEL Right CHOLECYSTECTOMY HX in 1999 KNEE SURGERY HX Right scope and tibial transfer ORTHOPEDICS SURGERY HX Right Right Knee PAST SURGICAL HISTORY OF teeth removed TONSILLECTOMY HX FAMILY HISTORY Problem Relation Age of Onset Stroke Mother Lipids Mother Hypertension Mother Obesity Mother Asthma Mother COPD Mother Lipids Father Hypertension Father Alcohol/Drug Father Restless legs syndrome No Family History Obstructive Sleep Apnea No Family History Social History Tobacco Use Smoking status: Never Smokeless tobacco: Never Vaping Use Vaping status: Never Used Substance Use Topics Alcohol use: Yes Comment: social Drug use: Never Comment: No reported history. Current Outpatient Medications Medication Sig SUMAtriptan (IMITREX) 50 mg tablet Take 1 tablet (50 mg) by mouth as needed for migraine headache (see administration instructions). May repeat dose after 2 hours if needed. Maximum daily dose is 200 mg per day. cholecalciferol, Vitamin D3, (VITAMIN D3) 1,250 mcg (50,000 unit) cap capsule Take 1 capsule by mouth one time a week for 10 doses. sildenafil (VIAGRA) 100 mg tablet Take 1 tablet by mouth once daily as needed. Take 30-60 minutes before sexual activity. busPIRone (BUSPAR) 10 mg tablet Take 1 tablet by mouth three times a day. fluticasone (FLONASE) 50 mcg/actuation nasal spray Use 1 Holton in each nostril daily at bedtime. montelukast (SINGULAIR) 10 mg tablet take 1 tablet by mouth everyday at bedtime methocarbamol 1,000 mg tablet Take 1 tablet by mouth three times a day. FLUoxetine (PROZAC) 40 mg capsule Take 1 capsule by mouth once daily. traZODone (DESYREL) 100 mg tablet Take 2 tablets by mouth daily at bedtime. hydrOXYzine HCl (ATARAX) 50 mg tablet Take 1 tablet by mouth three times a day as needed for anxiety. valACYclovir (VALTREX) 500 mg tablet Take 1 tablet by mouth once daily. topiramate (TOPAMAX) 50 mg tablet Take 3 tablets by mouth once daily. gabapentin (NEURONTIN) 300 mg capsule Take 4 capsules by mouth as directed for 180 days. albuterol HFA (PROVENTIL HFA, VENTOLIN HFA) 90 mcg/actuation inhaler Inhale 2 Puffs as instructed every 4 hours as needed for wheezing/shortness of breath. albuterol HFA (PROAIR HFA) 90 mcg/actuation inhaler Inhale 2 Puffs as instructed every 4 hours as needed. Current Facility-Administered Medications Medication Dose Route Frequency cyanocobalamin 1,000 mcg injection 1,000 mcg INTRAMUSCULAR q 4 WEEKS ALLERGIES Allergen Reactions Bactrim [Sulfametho* Hives Erythromycin Base Hives, Shortness of Breath Sulfa (Sulfonamide * Unknown REVIEW OF SYSTEMS: All other ROS: negative As noted in HPI PHYSICAL EXAMINATION: VIDEO EXAM: (if completed, performed via video enabled technology) GENERAL: alert and appropriate, in no distress, well-hydrated, well nourished, and happy, smiling, interactive SKIN: no rash noted HEAD: normocephalic, no abnormality or lesion noted EYES: no injection and visual acuity is grossly normal EARS: hearing grossly normal CHEST: equal chest rise with normal respiratory effort ASSESSMENT/PLAN: 1. Wrist pain, acute, right - ICD9: 719.43, ICD10: M25.531 - XR WRIST GENERAL 3V PA/LAT/OBL RIGHT - EMG(NEURO/NI) - CONSULT TO ORTHOPAEDICS There are no Patient Instructions on file for this visit. I spent a total of 20 minutes on the date of the service which included preparing to see the patient, [id number] patient care, completing clinical documentation, obtaining and/or reviewing separately obtained history, performing a medically appropriate examination, counseling and educating the patient/family/caregiver, ordering medications, tests, or procedures, and communicating with other HCPs (not separately reported) Remi Ruth APRN.MARILEE documented in this encounter [facility] 11-13-2024 Telephone encounter Note Results sent in my chart [facility] 11-13-2024 Telephone encounter Note ----- Message from Remi Ruth APRN.CNP sent at 11/10/2024 4:47 PM EST ----- Labs look okay, sed rate slightly elevated but not specific. Remi Ruth APRN.CNP November 10, 2024 4:47 PM [facility] 11-13-2024 Miscellaneous Notes Results sent in my chart ----- Message from Remi Ruth APRN.CNP sent at 11/10/2024 4:47 PM EST ----- Labs look okay, sed rate slightly elevated but not specific. Remi Ruth APRN.CNP November 10, 2024 4:47 PM documented in this encounter [facility] 11-09-2024 Note [facility] 11-09-2024 History of Present illness Narrative Images from the original note were not included. [facility] [address] [place] [address] Date of Evaluation: 11/09/2024 Patient Name: Sam Rai : 1975 Chief Complaint: Patient presents with: Sinus Problem: Sinus pressure, Headache, nasal drainage, over weekend was vomiting due to drainage, ears full like there is water in them x's 1 month Subjective Sinus Problem Associated symptoms include arthralgias, congestion and headaches. Pertinent negatives include no abdominal pain, chest pain, chills, coughing, fever, myalgias, nausea, numbness, rash, sore throat or vomiting. Mr. Rai is a 48 year old male who presents for: Sinus congestion, pressure, headache and nasal drainage. Ongoing for 1 month, amoxicillin provided no relief. Reports multiple joint pain, including right wrist knee and ankle. Review of Systems Constitutional: Negative for activity change, appetite change, chills and fever. HENT: Positive for congestion, rhinorrhea, sinus pressure and sinus pain. Negative for ear pain, hearing loss, sore throat and trouble swallowing. Eyes: Negative for visual disturbance. Respiratory: Negative for cough, chest tightness, shortness of breath and wheezing. Cardiovascular: Negative for chest pain, palpitations and leg swelling. Gastrointestinal: Negative for abdominal pain, diarrhea, nausea and vomiting. Genitourinary: Negative for dysuria and frequency. Musculoskeletal: Positive for arthralgias. Negative for myalgias. Skin: Negative for pallor, rash and wound. Neurological: Positive for headaches. Negative for dizziness, light-headedness and numbness. Psychiatric/Behavioral: Negative for behavioral problems, confusion, hallucinations and suicidal ideas. PAST MEDICAL HISTORY Diagnosis Date Acute medial meniscus tear of right knee Anxiety Asthma Contact dermatitis Recurrence not specified. COVID-19 long hauler Depression Diverticulitis GERD (gastroesophageal reflux disease) Insufficiency fracture of tibia Migraines Obesity, morbid, BMI 40.0-49.9 ([facility]) Primary osteoarthritis of right knee Restless legs syndrome (RLS) Sinus infection PAST SURGICAL HISTORY Procedure Laterality Date CARPAL TUNNEL Right CHOLECYSTECTOMY HX in 1999 KNEE SURGERY HX Right scope and tibial transfer ORTHOPEDICS SURGERY HX Right Right Knee PAST SURGICAL HISTORY OF teeth removed TONSILLECTOMY HX FAMILY HISTORY Problem Relation Age of Onset Stroke Mother Lipids Mother Hypertension Mother Obesity Mother Asthma Mother COPD Mother Lipids Father Hypertension Father Alcohol/Drug Father Restless legs syndrome No Family History Obstructive Sleep Apnea No Family History Social History Tobacco Use Smoking status: Never Smokeless tobacco: Never Vaping Use Vaping status: Never Used Substance Use Topics Alcohol use: Yes Comment: social Drug use: Never Comment: No reported history. Current Outpatient Medications Medication Sig SUMAtriptan (IMITREX) 50 mg tablet Take 1 tablet (50 mg) by mouth as needed for migraine headache (see administration instructions). May repeat dose after 2 hours if needed. Maximum daily dose is 200 mg per day. betamethasone valerate 0.1 % cream Apply 1 application to affected area two times a day. cholecalciferol, Vitamin D3, (VITAMIN D3) 1,250 mcg (50,000 unit) cap capsule Take 1 capsule by mouth one time a week for 10 doses. sildenafil (VIAGRA) 100 mg tablet Take 1 tablet by mouth once daily as needed. Take 30-60 minutes before sexual activity. busPIRone (BUSPAR) 10 mg tablet Take 1 tablet by mouth three times a day. fluticasone (FLONASE) 50 mcg/actuation nasal spray Use 1 Holton in each nostril daily at bedtime. montelukast (SINGULAIR) 10 mg tablet take 1 tablet by mouth everyday at bedtime methocarbamol 1,000 mg tablet Take 1 tablet by mouth three times a day. FLUoxetine (PROZAC) 40 mg capsule Take 1 capsule by mouth once daily. traZODone (DESYREL) 100 mg tablet Take 2 tablets by mouth daily at bedtime. hydrOXYzine HCl (ATARAX) 50 mg tablet Take 1 tablet by mouth three times a day as needed for anxiety. valACYclovir (VALTREX) 500 mg tablet Take 1 tablet by mouth once daily. topiramate (TOPAMAX) 50 mg tablet Take 3 tablets by mouth once daily. gabapentin (NEURONTIN) 300 mg capsule Take 4 capsules by mouth as directed for 180 days. albuterol HFA (PROVENTIL HFA, VENTOLIN HFA) 90 mcg/actuation inhaler Inhale 2 Puffs as instructed every 4 hours as needed for wheezing/shortness of breath. albuterol HFA (PROAIR HFA) 90 mcg/actuation inhaler Inhale 2 Puffs as instructed every 4 hours as needed. amoxicillin-clavulanate potassium (AUGMENTIN) 875-125 mg per tablet Take 1 tablet by mouth every 12 hours for 10 days. methylPREDNISolone (MEDROL, ANDRE,) 4 mg Dose-Pack As instructed per package Current Facility-Administered Medications Medication Dose Route Frequency cyanocobalamin 1,000 mcg injection 1,000 mcg INTRAMUSCULAR q 4 WEEKS I have confirmed and edited as necessary the chief complaint, medications, past medical, family and social histories obtained by others. Objective BP 103/71 Pulse 76 Temp 98 Resp 18 Ht 5' 7" (1.70m) Wt 258 lb (117.0kg) SpO2 97% BMI 40.40 kg/(m^2). Physical Exam Vitals reviewed. Constitutional: General: He is not in acute distress. Appearance: Normal appearance. He is normal weight. HENT: Head: Normocephalic. Right Ear: Tympanic membrane, ear canal and external ear normal. Left Ear: Tympanic membrane, ear canal and external ear normal. Nose: Congestion present. Mouth/Throat: Mouth: Mucous membranes are moist. Pharynx: Oropharynx is clear. Eyes: Extraocular Movements: Extraocular movements intact. Conjunctiva/sclera: Conjunctivae normal. Pupils: Pupils are equal, round, and reactive to light. Cardiovascular: Rate and Rhythm: Normal rate and regular rhythm. Pulses: Normal pulses. Heart sounds: Normal heart sounds. No murmur heard. No friction rub. No gallop. Pulmonary: Effort: Pulmonary effort is normal. Breath sounds: Normal breath sounds. No wheezing, rhonchi or rales. Abdominal: General: Bowel sounds are normal. Palpations: Abdomen is soft. Musculoskeletal: General: Tenderness present. No swelling, deformity or signs of injury. Normal range of motion. Cervical back: Normal range of motion. Right lower leg: No edema. Left lower leg: No edema. Lymphadenopathy: Cervical: No cervical adenopathy. Skin: General: Skin is warm and dry. Findings: No lesion or rash. Neurological: General: No focal deficit present. Mental Status: He is alert and oriented to person, place, and time. Mental status is at baseline. Psychiatric: Mood and Affect: Mood normal. Behavior: Behavior normal. Data Reviewed: Most recent labs and imaging results. ASSESSMENT/PLAN: 1. Acute non-recurrent sinusitis, unspecified location - ICD9: 461.9, ICD10: J01.90 (primary diagnosis) - Will begin treatment with Augmentin 875 mg PO BID for 10 days - Supportive care with plenty of fluids, rest, and analgesia prn. - AMOXICILLIN 875 MG-POTASSIUM CLAVULANATE 125 MG TABLET - METHYLPREDNISOLONE 4 MG TABLETS IN A DOSE PACK 2. Multiple joint pain - ICD9: 719.49, ICD10: M25.50 - JACK BY IFA WITH REFLEX - RHEUMATOID FACTOR - SEDIMENTATION RATE, WESTERGREN - C-REACTIVE PROTEIN - URIC ACID - METHYLPREDNISOLONE 4 MG TABLETS IN A DOSE PACK Remi Ruth APRN.CNP Return if symptoms worsen or fail to improve. Discussed the above with the patient using shared decision making. The patient is in agreement with the diagnostic and treatment plans. documented in this encounter [facility] 10-20-2024 Telephone encounter Note Results sent in my chart [facility] 10-20-2024 Telephone encounter Note ----- Message from Remi Ruth APRN.CNP sent at 10/20/2024 8:01 AM EST ----- Normal testosterone level. Remi Ruth APRN.CNP October 20, 2024 8:01 AM [facility] 10-20-2024 Miscellaneous Notes Results sent in my chart ----- Message from Remi Ruth APRN.CNP sent at 10/20/2024 8:01 AM EST ----- Normal testosterone level. Remi Ruth APRN.CNP October 20, 2024 8:01 AM documented in this encounter [facility] 10-19-2024 Note [facility] 10-19-2024 History of Present illness Narrative Patient has been identified by name and date of : Yes Sam is here for an injection of Vitamin B12 Dose: 1ML Route: Intramuscular Given without incident. Site: right deltoid Supervisor Picking Crew: [employer] Lot #: [id number] [facility] #: [id number] Expiration Date: 01/2026 Remi Ruth MSN, CEMENT [employer] CONCRETE PLANT WORKER, CUSTOMER ENGINEERING SPECIALIST-C present in clinic at time of injection. The date due for the next injection is . Katelyn Ferguson MA Images from the original note were not included. [facility] [address] [place] [address] Date of Evaluation: 10/19/2024 Patient Name: Sam Rai : 1975 Chief Complaint: Patient presents with: Established Patient: Medical concerns Subjective HPI Mr. Rai is a 48 year old male who presents for: Multiple concerns - Reports issues with ED, had low end testosterone in the past and was receiving injections. Has not had them since 2019. - Reports increased anxiety and trouble sleeping despite medications, reports that "his brain wont shut off." - Flair of his eczema, on bilateral lower legs. Review of Systems Constitutional: Negative for activity change, appetite change, chills and fever. HENT: Negative for ear pain, hearing loss, sinus pressure, sinus pain, sore throat and trouble swallowing. Eyes: Negative for visual disturbance. Respiratory: Negative for cough, chest tightness, shortness of breath and wheezing. Cardiovascular: Negative for chest pain, palpitations and leg swelling. Gastrointestinal: Negative for abdominal pain, diarrhea, nausea and vomiting. Genitourinary: Negative for dysuria, frequency, penile discharge, penile pain, penile swelling, scrotal swelling and testicular pain. Musculoskeletal: Negative for arthralgias and myalgias. Skin: Positive for rash. Negative for pallor and wound. Neurological: Negative for dizziness, light-headedness, numbness and headaches. Psychiatric/Behavioral: Positive for sleep disturbance. Negative for behavioral problems, confusion, hallucinations and suicidal ideas. The patient is nervous/anxious. PAST MEDICAL HISTORY Diagnosis Date Acute medial meniscus tear of right knee Anxiety Asthma Contact dermatitis Recurrence not specified. COVID-19 long hauler Depression Diverticulitis GERD (gastroesophageal reflux disease) Insufficiency fracture of tibia Migraines Obesity, morbid, BMI 40.0-49.9 ([facility]) Primary osteoarthritis of right knee Restless legs syndrome (RLS) Sinus infection PAST SURGICAL HISTORY Procedure Laterality Date CARPAL TUNNEL Right CHOLECYSTECTOMY HX in 1999 KNEE SURGERY HX Right scope and tibial transfer ORTHOPEDICS SURGERY HX Right Right Knee PAST SURGICAL HISTORY OF teeth removed TONSILLECTOMY HX FAMILY HISTORY Problem Relation Age of Onset Stroke Mother Lipids Mother Hypertension Mother Obesity Mother Asthma Mother COPD Mother Lipids Father Hypertension Father Alcohol/Drug Father Restless legs syndrome No Family History Obstructive Sleep Apnea No Family History Social History Tobacco Use Smoking status: Never Smokeless tobacco: Never Vaping Use Vaping status: Never Used Substance Use Topics Alcohol use: Yes Comment: social Drug use: Never Comment: No reported history. Current Outpatient Medications Medication Sig fluticasone (FLONASE) 50 mcg/actuation nasal spray Use 1 Holton in each nostril daily at bedtime. amoxicillin (AMOXIL) 875 mg tablet Take 1 tablet by mouth two times a day for 7 days. montelukast (SINGULAIR) 10 mg tablet take 1 tablet by mouth everyday at bedtime methocarbamol 1,000 mg tablet Take 1 tablet by mouth three times a day. FLUoxetine (PROZAC) 40 mg capsule Take 1 capsule by mouth once daily. traZODone (DESYREL) 100 mg tablet Take 2 tablets by mouth daily at bedtime. hydrOXYzine HCl (ATARAX) 50 mg tablet Take 1 tablet by mouth three times a day as needed for anxiety. valACYclovir (VALTREX) 500 mg tablet Take 1 tablet by mouth once daily. topiramate (TOPAMAX) 50 mg tablet Take 3 tablets by mouth once daily. gabapentin (NEURONTIN) 300 mg capsule Take 4 capsules by mouth as directed for 180 days. albuterol HFA (PROVENTIL HFA, VENTOLIN HFA) 90 mcg/actuation inhaler Inhale 2 Puffs as instructed every 4 hours as needed for wheezing/shortness of breath. albuterol HFA (PROAIR HFA) 90 mcg/actuation inhaler Inhale 2 Puffs as instructed every 4 hours as needed. SUMAtriptan (IMITREX) 50 mg tablet Take 1 tablet (50 mg) by mouth as needed for migraine headache (see administration instructions). May repeat dose after 2 hours if needed. Maximum daily dose is 200 mg per day. betamethasone valerate 0.1 % cream Apply 1 application to affected area two times a day. cholecalciferol, Vitamin D3, (VITAMIN D3) 1,250 mcg (50,000 unit) cap capsule Take 1 capsule by mouth one time a week for 10 doses. sildenafil (VIAGRA) 100 mg tablet Take 1 tablet by mouth once daily as needed. Take 30-60 minutes before sexual activity. busPIRone (BUSPAR) 10 mg tablet Take 1 tablet by mouth three times a day. Current Facility-Administered Medications Medication Dose Route Frequency [START ON 10/20/2024] cyanocobalamin 1,000 mcg injection 1,000 mcg INTRAMUSCULAR q 4 WEEKS I have confirmed and edited as necessary the chief complaint, medications, past medical, family and social histories obtained by others. Objective BP 118/75 Pulse 73 Resp 16 Ht 5' 7" (1.70m) Wt 253 lb (114.8kg) SpO2 97% BMI 39.62 kg/(m^2). Physical Exam Vitals reviewed. Constitutional: General: He is not in acute distress. Appearance: Normal appearance. He is normal weight. HENT: Head: Normocephalic. Eyes: Extraocular Movements: Extraocular movements intact. Conjunctiva/sclera: Conjunctivae normal. Pupils: Pupils are equal, round, and reactive to light. Cardiovascular: Rate and Rhythm: Normal rate and regular rhythm. Pulses: Normal pulses. Heart sounds: Normal heart sounds. No murmur heard. No friction rub. No gallop. Pulmonary: Effort: Pulmonary effort is normal. Breath sounds: Normal breath sounds. No wheezing, rhonchi or rales. Musculoskeletal: General: Normal range of motion. Cervical back: Normal range of motion. Right lower leg: No edema. Left lower leg: No edema. Lymphadenopathy: Cervical: No cervical adenopathy. Skin: General: Skin is warm and dry. Findings: Rash present. No lesion. Neurological: General: No focal deficit present. Mental Status: He is alert and oriented to person, place, and time. Mental status is at baseline. Psychiatric: Attention and Perception: Attention and perception normal. Mood and Affect: Mood is anxious. Speech: Speech normal. Behavior: Behavior normal. Behavior is cooperative. Thought Content: Thought content normal. Cognition and Memory: Cognition and memory normal. Judgment: Judgment normal. Data Reviewed: No new labs ASSESSMENT/PLAN: 1. Intractable headache, unspecified chronicity pattern, unspecified headache type - ICD9: 784.0, ICD10: R51.9 (primary diagnosis) - SUMATRIPTAN 50 MG TABLET 2. Eczema, unspecified type - ICD9: 692.9, ICD10: L30.9 - BETAMETHASONE VALERATE 0.1 % TOPICAL CREAM 3. Erectile dysfunction, unspecified erectile dysfunction type - ICD9: 607.84, ICD10: N52.9 - TESTOSTERONE, TOTAL BY IMMUNOASSAY (ADULT MALES, OR INDIVIDUALS ON TESTOSTERONE THERAPY) - SILDENAFIL 100 MG TABLET 4. Vitamin B 12 deficiency - ICD9: 266.2, ICD10: E53.8 - CYANOCOBALAMIN (VIT B-12) 1,000 MCG/ML INJECTION SOLUTION 5. Vitamin D deficiency - ICD9: 268.9, ICD10: E55.9 - CHOLECALCIFEROL (VITAMIN D3) 1,250 MCG (50,000 UNIT) CAPSULE 6. Anxiety and depression - ICD9: 300.00, 311, ICD10: F41.9, F32.A - BUSPIRONE 10 MG TABLET Remi Ruth APRN.PIG MACHINE CRANE OPERATOR Return in about 6 weeks (around 11/30/2024) for follow up. Discussed the above with the patient using shared decision making. The patient is in agreement with the diagnostic and treatment plans. documented in this encounter [facility] 10-19-2024 Note [facility] 10-12-2024 Note [facility] 10-12-2024 History of Present illness Narrative Images from the original note were not included. [facility] [address] [place] [address] Date of Evaluation: 10/12/2024 Patient Name: Sam Rai : 1975 Chief Complaint: Patient presents with: Sinus Problem: Sinus pressure and drainage. Bilateral ears feel full Subjective Sinus Problem Associated symptoms include congestion, coughing and a sore throat. Pertinent negatives include no abdominal pain, arthralgias, chest pain, chills, fever, headaches, myalgias, nausea, numbness, rash or vomiting. Mr. Rai is a 48 year old male who presents for: Sinus congestion/pressure since last . Reports no fever or chills. Intermittent coughing when the sinus drainage drips post nasal. No known sick contacts but several people at the rehab where his is at have illnesses. Review of Systems Constitutional: Negative for activity change, appetite change, chills and fever. HENT: Positive for congestion, postnasal drip, rhinorrhea, sinus pressure, sinus pain and sore throat. Negative for ear pain, hearing loss and trouble swallowing. Eyes: Negative for visual disturbance. Respiratory: Positive for cough. Negative for chest tightness, shortness of breath and wheezing. Cardiovascular: Negative for chest pain, palpitations and leg swelling. Gastrointestinal: Negative for abdominal pain, diarrhea, nausea and vomiting. Genitourinary: Negative for dysuria and frequency. Musculoskeletal: Negative for arthralgias and myalgias. Skin: Negative for pallor, rash and wound. Neurological: Negative for dizziness, light-headedness, numbness and headaches. Psychiatric/Behavioral: Negative for behavioral problems, confusion, hallucinations and suicidal ideas. PAST MEDICAL HISTORY Diagnosis Date Acute medial meniscus tear of right knee Anxiety Asthma Contact dermatitis Recurrence not specified. COVID-19 long hauler Depression Diverticulitis GERD (gastroesophageal reflux disease) Insufficiency fracture of tibia Migraines Obesity, morbid, BMI 40.0-49.9 ([facility]) Primary osteoarthritis of right knee Restless legs syndrome (RLS) Sinus infection PAST SURGICAL HISTORY Procedure Laterality Date CARPAL TUNNEL Right CHOLECYSTECTOMY HX in 1999 KNEE SURGERY HX Right scope and tibial transfer ORTHOPEDICS SURGERY HX Right Right Knee PAST SURGICAL HISTORY OF teeth removed TONSILLECTOMY HX FAMILY HISTORY Problem Relation Age of Onset Stroke Mother Lipids Mother Hypertension Mother Obesity Mother Asthma Mother COPD Mother Lipids Father Hypertension Father Alcohol/Drug Father Restless legs syndrome No Family History Obstructive Sleep Apnea No Family History Social History Tobacco Use Smoking status: Never Smokeless tobacco: Never Vaping Use Vaping status: Never Used Substance Use Topics Alcohol use: Yes Comment: social Drug use: Never Comment: No reported history. Current Outpatient Medications Medication Sig montelukast (SINGULAIR) 10 mg tablet take 1 tablet by mouth everyday at bedtime methocarbamol 1,000 mg tablet Take 1 tablet by mouth three times a day. FLUoxetine (PROZAC) 40 mg capsule Take 1 capsule by mouth once daily. traZODone (DESYREL) 100 mg tablet Take 2 tablets by mouth daily at bedtime. hydrOXYzine HCl (ATARAX) 50 mg tablet Take 1 tablet by mouth three times a day as needed for anxiety. valACYclovir (VALTREX) 500 mg tablet Take 1 tablet by mouth once daily. SUMAtriptan (IMITREX) 50 mg tablet Take 50 mg by mouth as needed for migraine headache (see administration instructions). May repeat dose after 2 hours if needed. Maximum daily dose is 200 mg per day. topiramate (TOPAMAX) 50 mg tablet Take 3 tablets by mouth once daily. gabapentin (NEURONTIN) 300 mg capsule Take 4 capsules by mouth as directed for 180 days. albuterol HFA (PROVENTIL HFA, VENTOLIN HFA) 90 mcg/actuation inhaler Inhale 2 Puffs as instructed every 4 hours as needed for wheezing/shortness of breath. albuterol HFA (PROAIR HFA) 90 mcg/actuation inhaler Inhale 2 Puffs as instructed every 4 hours as needed. fluticasone (FLONASE) 50 mcg/actuation nasal spray Use 1 Holton in each nostril daily at bedtime. amoxicillin (AMOXIL) 875 mg tablet Take 1 tablet by mouth two times a day for 7 days. No current facility-administered medications for this visit. I have confirmed and edited as necessary the chief complaint, medications, past medical, family and social histories obtained by others. Objective BP 131/84 Pulse 80 Temp 98 Resp 16 Ht 5' 7" (1.70m) Wt 252 lb (114.3kg) SpO2 98% BMI 39.46 kg/(m^2). Physical Exam Vitals reviewed. Constitutional: General: He is not in acute distress. Appearance: Normal appearance. He is normal weight. HENT: Head: Normocephalic. Right Ear: Tympanic membrane, ear canal and external ear normal. Left Ear: Tympanic membrane, ear canal and external ear normal. Nose: Congestion and rhinorrhea present. Mouth/Throat: Mouth: Mucous membranes are moist. Pharynx: Oropharynx is clear. Eyes: Extraocular Movements: Extraocular movements intact. Conjunctiva/sclera: Conjunctivae normal. Pupils: Pupils are equal, round, and reactive to light. Cardiovascular: Rate and Rhythm: Normal rate and regular rhythm. Pulses: Normal pulses. Heart sounds: Normal heart sounds. No murmur heard. No friction rub. No gallop. Pulmonary: Effort: Pulmonary effort is normal. Breath sounds: Normal breath sounds. No wheezing, rhonchi or rales. Musculoskeletal: General: Normal range of motion. Cervical back: Normal range of motion. Right lower leg: No edema. Left lower leg: No edema. Lymphadenopathy: Cervical: No cervical adenopathy. Skin: General: Skin is warm and dry. Findings: No lesion or rash. Neurological: General: No focal deficit present. Mental Status: He is alert and oriented to person, place, and time. Mental status is at baseline. Psychiatric: Mood and Affect: Mood normal. Behavior: Behavior normal. Data Reviewed: No new labs ASSESSMENT/PLAN: 1. Upper respiratory tract infection, unspecified type - ICD9: 465.9, ICD10: J06.9 - Symptomatic treatment with prn analgesia - Supportive care with fluids and rest - The patient may also use OTC decongestants prn and warm salt water gargles, throat lozenges and/or OTC throat spray as needed. - FLUTICASONE PROPIONATE 50 MCG/ACTUATION NASAL SPRAY,SUSPENSION - AMOXICILLIN 875 MG TABLET Remi Ruth APRN.PIG MACHINE CRANE OPERATOR Return if symptoms worsen or fail to improve. Discussed the above with the patient using shared decision making. The patient is in agreement with the diagnostic and treatment plans. documented in this encounter [facility] 10-05-2024 Note HNO ID: [id number] Author: CRISTIN COX LISW Service: ? Author Type: Veneer Press Operator Type: Progress Notes Filed: 10/05/2024 11:55 Note Text: PRIMARY CARE SOCIAL WORK PROGRESS NOTE Provider Action / FYI PCP Action FYI SERVICE DATE: October 05, 2024 SERVICE TIME: 11:00 AM (Patient has been identified by name and date of ) REASON FOR CONTACT: Financial Resources and Community Resources Mode of Outreach: Phone Call Progress Note: PCSW called and spoke with this patient who reports that he may be getting a free cpap machine. SW explained to him that there is an agency in [place] called the [employer] that may be able to assist him with 75% of the cost of a cpap machine if his present plan cannot provide him with one. SW also provided him with a list of agencies that may be able to assist him rent/mortgage and utilities. The patient will contact if he needs further assistance. INTERVENTION: Community Resources - External Resource DME - External Resource Education - Both Internal and External Resources Financial - External Resource Follow Up Provided Rent Assistance - External Resource Resources Provided - External Resource Utilities - External Resource Time Spent:: 45 minutes SIGNATURE: RANCHO Merritt PATIENT NAME: Sam Rai DATE: October 05, 2024 TIME: 11:00 AM CONTACT #: [phone] [facility] 10-05-2024 History of Present illness Narrative PRIMARY CARE SOCIAL WORK PROGRESS NOTE Provider Action / FYI PCP Action FYI SERVICE DATE: October 05, 2024 SERVICE TIME: 11:00 AM (Patient has been identified by name and date of ) REASON FOR CONTACT: Financial Resources and Community Resources Mode of Outreach: Phone Call Progress Note: [facility] this patient who reports that he may be getting a free cpap machine. SW explained to him that there is an agency in [place] called the [employer] that may be able to assist him with 75% of the cost of a cpap machine if his present plan cannot provide him with one. SW also provided him with a list of agencies that may be able to assist him rent/mortgage and utilities. The patient will contact if he needs further assistance. INTERVENTION: Community Resources - External Resource DME - External Resource Education - Both Internal and External Resources Financial - External Resource Follow Up Provided Rent Assistance - External Resource Resources Provided - External Resource Utilities - External Resource Time Spent:: 45 minutes SIGNATURE: RANCHO Merritt PATIENT NAME: Sam Rai DATE: October 05, 2024 TIME: 11:00 AM CONTACT #: [phone] documented in this encounter [facility] 09-27-2024 Miscellaneous Notes I do not have any paper work. On my desk for him, I believe we filled it out at his appointment and gave it back to him. Remi Ruth APRN.CNP September 27, 2024 3:59 PM Sam is calling asking if you had time to fill out his paperwork. I do not see it in scanned documents documented in this encounter [facility] 09-27-2024 Telephone encounter Note I do not have any paper work. On my desk for him, I believe we filled it out at his appointment and gave it back to him. Remi Ruth APRN.CNP September 27, 2024 3:59 PM [facility] 09-27-2024 Telephone encounter Note Asm is calling asking if you had time to fill out his paperwork. I do not see it in scanned documents [facility] 09-22-2024 Note HNO ID: [id number] Author: CRISTIN COX LISW Service: ? Author Type: Veneer Press Operator Type: Progress Notes Filed: 09/22/2024 14:22 Note Text: Provider Action / FYI PCP Action FYI Primary Care Social Work Assessment Date of Service: September 22, 2024 (Patient has been identified by name and date of ) Patient Name: Sam Rai Referred by: Other - PCP Patient Supervisor Pumping Station: none Hand-In Received: Yes Reason for Consultation: Financial Resources Mode of Outreach: Phone Call Patient Contact: Telephonic Medical Last Hospital Admission Date: none Health Literacy: 1. How often do you need to have someone help you when you read instructions, pamphlets, or other written material from your doctor or pharmacy?Rarely - 2 2. How confident are you filling out medical forms by yourself?Quite a bit - 2 If the patient scored 3 on either question, the following interventions were put into place:Patient did not score > 3 Advanced Directives: Patient does not have AD. Social Scientist: Sam Cerda (Spouse) [phone] Caregiver Status: Patient is not a caregiver for another person. Marital Status: Parents: did not discuss Children: Not responsible for minor children. Siblings: did not discuss Emotional Support animals: none Stress: Patient is living in a hoarding situation. Primary Language: Greek Ethnicity/Cultural identification: Not Denominational Affiliation: Druze Gender Identity: Male Sexual Orientation: Choose not to disclose Status (Including History of Combat Experience): None Living Arrangements: Home Resides with: Spouse Issues or Concerns with Home Environment: hoarding situation Food Insecurity: Food Insecurity: Not on file Needs met. Financial Resource Strain: Financial Resource Strain: Not on file Patient needs a cpap and does not have insurance. Transportation: Transportation Needs: Not on file Needs met. Housing: Housing Stability: Not on file Patient reports his spouse is a hoarder. Functional Hearing Impairment: none Speech Impairment: none Visual Impairment: Patient wears glasses. Dental Impairments: none ADL/IADL Impairment: Patient is able to care for himself. Durable Medical Equipment: none Cognitive/Behavioral Mental Status: Patient is alert and oriented. Behavioral Health History: Anxiety, Depression, SI/SA Substance Use AND Treatment History: none History of Abuse/Neglect: none Additional Psychosocial Stressors/Concerns: none Patient Strengths/Protective Factors: supportive spouse, transportation, employment Access Behavioral Health Provider: PCP Home Health Provider: none Community Services: none Employment/Employer: [employer] Source of Income: employment/part-time Insurance Provider(s): Payor: [facility] / [facility] / Product Type: MCO / Medication Adherence: I am convinced of the importance of my prescription medication:Agree completely - 0 I worry that my prescription medication will do more harm than good to me:Disagree completely - 0 I feel financially burdened by my [id number] expenses for my prescription medication:Disagree mostly -0 Patient is categorized as:low risk < 2 Patient Stated Goals: financial resources Doole of Choice Explained: N/A Summary: PCSW received and reviewed order. Patient needs assistance with obtaining a cpap machine due to not having insurance. Also, he may need financial assistance in order to keep his house. SW called and left a voicemail message asking this patient to return the call for assistance. Hand-Off Communication: PCP Assessment Completed Community Resources - External Resource DME - External Resource Financial - External Resource Follow Up Provided Housing - External Resource Time Spent: 75 minutes SIGNATURE: RANCHO Merritt PATIENT NAME: Sam Rai DATE: September 22, 2024 TIME: 1:17 PM CONTACT #: [phone] [facility] 09-22-2024 History of Present illness Narrative Provider Action / FYI PCP Action FYI Primary Care Social Work Assessment Date of Service: September 22, 2024 (Patient has been identified by name and date of ) Patient Name: Sam Rai Referred by: Other - PCP Patient Supervisor Pumping Station: none Hand-In Received: Yes Reason for Consultation: Financial Resources Mode of Outreach: Phone Call Patient Contact: Telephonic Medical Last Hospital Admission Date: none Health Literacy: 1. How often do you need to have someone help you when you read instructions, pamphlets, or other written material from your doctor or pharmacy?Rarely - 2 2. How confident are you filling out medical forms by yourself?Quite a bit - 2 If the patient scored 3 on either question, the following interventions were put into place:Patient did not score > 3 Advanced Directives: Patient does not have AD. Social Scientist: Sam Cerda (Spouse) [phone] Caregiver Status: Patient is not a caregiver for another person. Marital Status: Parents: did not discuss Children: Not responsible for minor children. Siblings: did not discuss Emotional Support animals: none Stress: Patient is living in a hoarding situation. Primary Language: Greek Ethnicity/Cultural identification: Not Denominational Affiliation: Druze Gender Identity: Male Sexual Orientation: Choose not to disclose Status (Including History of Combat Experience): None Living Arrangements: Home Resides with: Spouse Issues or Concerns with Home Environment: hoarding situation Food Insecurity: Food Insecurity: Not on file Needs met. Financial Resource Strain: Financial Resource Strain: Not on file Patient needs a cpap and does not have insurance. Transportation: Transportation Needs: Not on file Needs met. Housing: Housing Stability: Not on file Patient reports his spouse is a hoarder. Functional Hearing Impairment: none Speech Impairment: none Visual Impairment: Patient wears glasses. Dental Impairments: none ADL/IADL Impairment: Patient is able to care for himself. Durable Medical Equipment: none Cognitive/Behavioral Mental Status: Patient is alert and oriented. Behavioral Health History: Anxiety, Depression, SI/SA Substance Use & Treatment History: none History of Abuse/Neglect: none Additional Psychosocial Stressors/Concerns: none Patient Strengths/Protective Factors: supportive spouse, transportation, employment Access Behavioral Health Provider: PCP Home Health Provider: none Community Services: none Employment/Employer: [employer] Source of Income: employment/part-time Insurance Provider(s): Payor: [facility] / Plan: [employer] [facility] MCO / Product Type: MCO / Medication Adherence: I am convinced of the importance of my prescription medication:Agree completely - 0 I worry that my prescription medication will do more harm than good to me:Disagree completely - 0 I feel financially burdened by my [id number] expenses for my prescription medication:Disagree mostly -0 Patient is categorized as:low risk < 2 Patient Stated Goals: financial resources Doole of Choice Explained: N/A Summary: PCSW received and reviewed order. Patient needs assistance with obtaining a cpap machine due to not having insurance. Also, he may need financial assistance in order to keep his house. SW called and left a voicemail message asking this patient to return the call for assistance. Hand-Off Communication: PCP Assessment Completed Community Resources - External Resource DME - External Resource Financial - External Resource Follow Up Provided Housing - External Resource Time Spent: 75 minutes SIGNATURE: RANCHO Merritt PATIENT NAME: Sam Rai DATE: September 22, 2024 TIME: 1:17 PM CONTACT #: [phone] documented in this encounter [facility] 09-20-2024 [facility] 09-20-2024 History of Present illness Narrative Images from the original note were not included. [facility] Medicine [address] [id number] Date of Evaluation: 09/20/2024 Patient Name: Sam Rai : 1975 Chief Complaint: Patient presents with: Follow Up: 1 month follow up other then tired his is feeling ok Nursing Intake: There are no exam notes on file for this visit. Subjective HPI Mr. Rai is a 48 year old male who presents for:Follow up Last seen 4 weeks ago, discontinued melatonin, cut trazodone in half. Reports still fatigued, reports currently still no improved but has been dealing with stressors at home with huis and shingles. Documented history of LIS but never received CPAP due to insurance coverage. I do believe he would benefit from its use and his fatigue would improve, unfortunately he is not insured at the [facility]. Review of Systems Constitutional: Positive for fatigue. Negative for activity change, appetite change, chills and fever. HENT: Negative for ear pain, hearing loss, sinus pressure, sinus pain, sore throat and trouble swallowing. Eyes: Negative for visual disturbance. Respiratory: Negative for cough, chest tightness, shortness of breath and wheezing. Cardiovascular: Negative for chest pain, palpitations and leg swelling. Gastrointestinal: Negative for abdominal pain, diarrhea, nausea and vomiting. Genitourinary: Negative for dysuria and frequency. Musculoskeletal: Negative for arthralgias and myalgias. Skin: Negative for pallor, rash and wound. Neurological: Negative for dizziness, light-headedness, numbness and headaches. Psychiatric/Behavioral: Negative for behavioral problems, confusion, hallucinations and suicidal ideas. PAST MEDICAL HISTORY Diagnosis Date Acute medial meniscus tear of right knee Anxiety Asthma Contact dermatitis Recurrence not specified. COVID-19 long hauler Depression Diverticulitis GERD (gastroesophageal reflux disease) Insufficiency fracture of tibia Migraines Obesity, morbid, BMI 40.0-49.9 ([facility]) Primary osteoarthritis of right knee Restless legs syndrome (RLS) Sinus infection PAST SURGICAL HISTORY Procedure Laterality Date CARPAL TUNNEL Right CHOLECYSTECTOMY HX in 1999 KNEE SURGERY HX Right scope and tibial transfer ORTHOPEDICS SURGERY HX Right Right Knee PAST SURGICAL HISTORY OF teeth removed TONSILLECTOMY HX FAMILY HISTORY Problem Relation Age of Onset Stroke Mother Lipids Mother Hypertension Mother Obesity Mother Asthma Mother COPD Mother Lipids Father Hypertension Father Alcohol/Drug Father Restless legs syndrome No Family History Obstructive Sleep Apnea No Family History Social History Tobacco Use Smoking status: Never Smokeless tobacco: Never Vaping Use Vaping status: Never Used Substance Use Topics Alcohol use: Yes Comment: social Drug use: Never Comment: No reported history. Current Outpatient Medications Medication Sig montelukast (SINGULAIR) 10 mg tablet take 1 tablet by mouth everyday at bedtime methocarbamol 1,000 mg tablet Take 1 tablet by mouth three times a day. FLUoxetine (PROZAC) 40 mg capsule Take 1 capsule by mouth once daily. traZODone (DESYREL) 100 mg tablet Take 2 tablets by mouth daily at bedtime. hydrOXYzine HCl (ATARAX) 50 mg tablet Take 1 tablet by mouth three times a day as needed for anxiety. valACYclovir (VALTREX) 500 mg tablet Take 1 tablet by mouth once daily. SUMAtriptan (IMITREX) 50 mg tablet Take 50 mg by mouth as needed for migraine headache (see administration instructions). May repeat dose after 2 hours if needed. Maximum daily dose is 200 mg per day. topiramate (TOPAMAX) 50 mg tablet Take 3 tablets by mouth once daily. gabapentin (NEURONTIN) 300 mg capsule Take 4 capsules by mouth as directed for 180 days. albuterol HFA (PROVENTIL HFA, VENTOLIN HFA) 90 mcg/actuation inhaler Inhale 2 Puffs as instructed every 4 hours as needed for wheezing/shortness of breath. albuterol HFA (PROAIR HFA) 90 mcg/actuation inhaler Inhale 2 Puffs as instructed every 4 hours as needed. No current facility-administered medications for this visit. I have confirmed and edited as necessary the chief complaint, medications, past medical, family and social histories obtained by others. Objective BP 107/75 Pulse 77 Resp 16 Ht 5' 7" (1.70m) Wt 250 lb (113.4kg) SpO2 98% BMI 39.15 kg/(m^2). Physical Exam Vitals reviewed. Constitutional: General: He is not in acute distress. Appearance: Normal appearance. He is normal weight. HENT: Head: Normocephalic. Eyes: Extraocular Movements: Extraocular movements intact. Conjunctiva/sclera: Conjunctivae normal. Pupils: Pupils are equal, round, and reactive to light. Cardiovascular: Rate and Rhythm: Normal rate and regular rhythm. Pulses: Normal pulses. Heart sounds: Normal heart sounds. No murmur heard. No friction rub. No gallop. Pulmonary: Effort: Pulmonary effort is normal. Breath sounds: Normal breath sounds. No wheezing, rhonchi or rales. Musculoskeletal: General: Normal range of motion. Cervical back: Normal range of motion. Right lower leg: No edema. Left lower leg: No edema. Lymphadenopathy: Cervical: No cervical adenopathy. Skin: General: Skin is warm and dry. Findings: No lesion or rash. Neurological: General: No focal deficit present. Mental Status: He is alert and oriented to person, place, and time. Mental status is at baseline. Psychiatric: Mood and Affect: Mood normal. Behavior: Behavior normal. Data Reviewed: Most recent Sleep study 2019 ASSESSMENT/PLAN: 1. Wellness examination - ICD9: V70.0, ICD10: Z00.00 Discussed that he would benefit from CPAP as he does have LIS and this could help his increased fatigue. Unfortunately he is uninsured at the moment. 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 Reports he attempted for medicaid but reports he "made too much money" to qualify. Will reach out to social work for assistance in applying for medicaid again or another option for financial assistance so that he may obtain a CPAP. - PRIMARY CARE SOCIAL WORK CONSULT Remi Ruth APRN.PIG MACHINE CRANE OPERATOR Return if symptoms worsen or fail to improve. Discussed the above with the patient using shared decision making. The patient is in agreement with the diagnostic and treatment plans. documented in this encounter [facility] 08-28-2024 Telephone encounter Note Pharmacy faxed requesting the following refill Refill(s) Requested: Requested Prescriptions Pending Prescriptions Disp Refills montelukast (SINGULAIR) 10 mg tablet [Pharmacy Med Name: MONTELUKAST SOD 10 MG TABLET] 90 tablet 0 Sig: take 1 tablet by mouth everyday at bedtime ALLERGIES Allergen Reactions Bactrim [Sulfametho* Hives Erythromycin Base Hives, Shortness of Breath Sulfa (Sulfonamide * Unknown (home) [phone] (cell) Last Office Visit Date: 08/23/2024 Last Distance Health Visit: Visit date not found Future Appointment: 09/08/2024 The patients preferred pharmacy has been captured for this encounter? yes Request is for script(s) to be escript to pharmacy. Samia Rosa MA [facility] 08-28-2024 Miscellaneous Notes Pharmacy faxed requesting the following refill Refill(s) Requested: Requested Prescriptions Pending Prescriptions Disp Refills montelukast (SINGULAIR) 10 mg tablet [Pharmacy Med Name: MONTELUKAST SOD 10 MG TABLET] 90 tablet 0 Sig: take 1 tablet by mouth everyday at bedtime ALLERGIES Allergen Reactions Bactrim [Sulfametho* Hives Erythromycin Base Hives, Shortness of Breath Sulfa (Sulfonamide * Unknown (home) [phone] (cell) Last Office Visit Date: 08/23/2024 Last Distance Health Visit: Visit date not found Future Appointment: 09/08/2024 The patients preferred pharmacy has been captured for this encounter? yes Request is for script(s) to be escript to pharmacy. Samia Rosa MA documented in this encounter [facility] 08-23-2024 Note [facility] 08-23-2024 History of Present illness Narrative Images from the original note were not included. [facility] Adult Medicine [facility] [place] [address] Date of Evaluation: 08/23/2024 Patient Name: Sam Rai : 1975 Chief Complaint: Patient presents with: Suture Removal: Suture removal left foot. Wants to discuss medications still has no energy. Nursing Intake: There are no exam notes on file for this visit. Subjective Suture Removal Pertinent negatives include no chest pain, no abdominal pain, no headaches and no shortness of breath. Mr. Rai is a 48 year old male who presents for: Suture removal. Seen in the ED for a laceration to the left foot. 2 Sutures placed. No signs of infection noted on exam. Reports difficulties waking up in the morning. Hits snooze multiple times. Reports taking Melatonin, Trazodone, Gabapentin and Robaxin nightly. Review of Systems Constitutional: Positive for fatigue. Negative for activity change, appetite change, chills and fever. HENT: Negative for ear pain, hearing loss, sinus pressure, sinus pain, sore throat and trouble swallowing. Eyes: Negative for visual disturbance. Respiratory: Negative for cough, chest tightness, shortness of breath and wheezing. Cardiovascular: Negative for chest pain, palpitations and leg swelling. Gastrointestinal: Negative for abdominal pain, diarrhea, nausea and vomiting. Genitourinary: Negative for dysuria and frequency. Musculoskeletal: Negative for arthralgias and myalgias. Skin: Positive for wound. Negative for pallor and rash. Neurological: Negative for dizziness, light-headedness, numbness and headaches. Psychiatric/Behavioral: Negative for behavioral problems, confusion, hallucinations and suicidal ideas. PAST MEDICAL HISTORY Diagnosis Date Acute medial meniscus tear of right knee Anxiety Asthma Contact dermatitis Recurrence not specified. COVID-19 long hauler Depression Diverticulitis GERD (gastroesophageal reflux disease) Insufficiency fracture of tibia Migraines Obesity, morbid, BMI 40.0-49.9 ([facility]) Primary osteoarthritis of right knee Restless legs syndrome (RLS) Sinus infection PAST SURGICAL HISTORY Procedure Laterality Date CARPAL TUNNEL Right CHOLECYSTECTOMY HX in 1999 KNEE SURGERY HX Right scope and tibial transfer ORTHOPEDICS SURGERY HX Right Right Knee PAST SURGICAL HISTORY OF teeth removed TONSILLECTOMY HX FAMILY HISTORY Problem Relation Age of Onset Stroke Mother Lipids Mother Hypertension Mother Obesity Mother Asthma Mother COPD Mother Lipids Father Hypertension Father Alcohol/Drug Father Restless legs syndrome No Family History Obstructive Sleep Apnea No Family History Social History Tobacco Use Smoking status: Never Smokeless tobacco: Never Vaping Use Vaping status: Never Used Substance Use Topics Alcohol use: Yes Comment: social Drug use: Never Comment: No reported history. Current Outpatient Medications Medication Sig methocarbamol 1,000 mg tablet Take 1 tablet by mouth three times a day. FLUoxetine (PROZAC) 40 mg capsule Take 1 capsule by mouth once daily. traZODone (DESYREL) 100 mg tablet Take 2 tablets by mouth daily at bedtime. hydrOXYzine HCl (ATARAX) 50 mg tablet Take 1 tablet by mouth three times a day as needed for anxiety. valACYclovir (VALTREX) 500 mg tablet Take 1 tablet by mouth once daily. SUMAtriptan (IMITREX) 50 mg tablet Take 50 mg by mouth as needed for migraine headache (see administration instructions). May repeat dose after 2 hours if needed. Maximum daily dose is 200 mg per day. topiramate (TOPAMAX) 50 mg tablet Take 3 tablets by mouth once daily. montelukast (SINGULAIR) 10 mg tablet Take 1 tablet by mouth daily at bedtime. gabapentin (NEURONTIN) 300 mg capsule Take 4 capsules by mouth as directed for 180 days. albuterol HFA (PROVENTIL HFA, VENTOLIN HFA) 90 mcg/actuation inhaler Inhale 2 Puffs as instructed every 4 hours as needed for wheezing/shortness of breath. albuterol HFA (PROAIR HFA) 90 mcg/actuation inhaler Inhale 2 Puffs as instructed every 4 hours as needed. No current facility-administered medications for this visit. I have confirmed and edited as necessary the chief complaint, medications, past medical, family and social histories obtained by others. Objective BP 126/89 Pulse 77 Resp 16 Ht 5' 7" (1.70m) Wt 251 lb (113.9kg) SpO2 99% BMI 39.30 kg/(m^2). Physical Exam Vitals reviewed. Constitutional: General: He is not in acute distress. Appearance: Normal appearance. He is normal weight. HENT: Head: Normocephalic. Eyes: Extraocular Movements: Extraocular movements intact. Conjunctiva/sclera: Conjunctivae normal. Pupils: Pupils are equal, round, and reactive to light. Cardiovascular: Rate and Rhythm: Normal rate and regular rhythm. Pulses: Normal pulses. Heart sounds: Normal heart sounds. No murmur heard. No friction rub. No gallop. Pulmonary: Effort: Pulmonary effort is normal. Breath sounds: Normal breath sounds. No wheezing, rhonchi or rales. Abdominal: General: Bowel sounds are normal. Palpations: Abdomen is soft. Musculoskeletal: General: Normal range of motion. Cervical back: Normal range of motion. Right lower leg: No edema. Left lower leg: No edema. Lymphadenopathy: Cervical: No cervical adenopathy. Skin: General: Skin is warm and dry. Findings: Wound present. No lesion or rash. Neurological: General: No focal deficit present. Mental Status: He is alert and oriented to person, place, and time. Mental status is at baseline. Psychiatric: Mood and Affect: Mood normal. Behavior: Behavior normal. Data Reviewed: No new labs ASSESSMENT/PLAN: 1. Visit for suture removal - ICD9: V58.32, ICD10: Z48.02 (primary diagnosis) 2 sutures removed without complication. Wound healing approprietly and routinely. Advised to look for signs of infection. Bacitracin and bandage applied. Advised to keep clean and dry with warm soapy water. 2. Other fatigue - ICD9: 780.79, ICD10: R53.83 Advised to hold Melatonin and decrease trazodone to 50 mg or hold al together. If no improvement in his restfulness advised to follow up in office. Remi Ruth APRN.PIG MACHINE CRANE OPERATOR Return if symptoms worsen or fail to improve. Discussed the above with the patient using shared decision making. The patient is in agreement with the diagnostic and treatment plans. documented in this encounter [facility] 08-21-2024 Note [facility] 08-21-2024 History of Present illness Narrative ED Follow Up: Patient discharged from [facility] ED on 08/18/24. 1. How are you feeling since your ED visit? fine Have your symptoms improved or resolved? Foot is just sore but no bleeding 2. Were you prescribed any medications while in the ED or advised to stop any medication? No - If yes, were you able to fill your prescriptions? Not applicable -if stopped medication, what was the medication? 3. Were you advised to schedule a follow up appointment with your provider? No - If no, Do you feel like you need an appointment scheduled? No - If yes, Do you need this scheduled now or has this already been scheduled? Not applicable 4. Were you able to contact the office or transportation solutions manager provider prior to your ED visit? No 5. Is there anything else I can do for you today? No I will call if it gets worse. documented in this encounter [facility] 08-08-2024 Note [facility] 08-08-2024 History of Present illness Narrative Images from the original note were not included. [facility] Adult Medicine [address] [place] [address] Date of Evaluation: 08/11/2024 Patient Name: Sam Rai : 1975 Chief Complaint: Patient presents with: Hospital Follow Up Subjective HPI Mr. Rai is a 48 year old male who presents for hospital follow up Presented to the ED on 07/31/24 with depression and suicidal ideations. He was transferred to [facility] for 7 days. While at [facility] they increased his prozac and treated his back spasms with robaxin. He participated in therapy and has outpatient follow up scheduled. He reports that he is doing well and feels better. He is needing a refill on the robaxin. Review of Systems Constitutional: Negative for activity change, fatigue and fever. HENT: Negative for congestion. Eyes: Negative for visual disturbance. Respiratory: Negative for cough, chest tightness, shortness of breath and wheezing. Cardiovascular: Negative for chest pain, palpitations and leg swelling. Gastrointestinal: Negative for abdominal pain. Musculoskeletal: Negative for arthralgias and myalgias. Neurological: Negative for dizziness and weakness. PAST MEDICAL HISTORY Diagnosis Date Acute medial meniscus tear of right knee Anxiety Asthma Contact dermatitis Recurrence not specified. COVID-19 long hauler Depression Diverticulitis GERD (gastroesophageal reflux disease) Insufficiency fracture of tibia Migraines Obesity, morbid, BMI 40.0-49.9 ([facility]) Primary osteoarthritis of right knee Restless legs syndrome (RLS) Sinus infection PAST SURGICAL HISTORY Procedure Laterality Date CARPAL TUNNEL Right CHOLECYSTECTOMY HX in 1999 KNEE SURGERY HX Right scope and tibial transfer ORTHOPEDICS SURGERY HX Right Right Knee PAST SURGICAL HISTORY OF teeth removed TONSILLECTOMY HX FAMILY HISTORY Problem Relation Age of Onset Stroke Mother Lipids Mother Hypertension Mother Obesity Mother Asthma Mother COPD Mother Lipids Father Hypertension Father Alcohol/Drug Father Restless legs syndrome No Family History Obstructive Sleep Apnea No Family History Social History Tobacco Use Smoking status: Never Smokeless tobacco: Never Vaping Use Vaping status: Never Used Substance Use Topics Alcohol use: Yes Comment: social Drug use: Never Comment: No reported history. Current Outpatient Medications Medication Sig hydrOXYzine HCl (ATARAX) 50 mg tablet Take 1 tablet by mouth three times a day as needed for anxiety. meloxicam (MOBIC) 15 mg tablet Take 1 tablet by mouth once daily. valACYclovir (VALTREX) 500 mg tablet Take 1 tablet by mouth once daily. SUMAtriptan (IMITREX) 50 mg tablet Take 50 mg by mouth as needed for migraine headache (see administration instructions). May repeat dose after 2 hours if needed. Maximum daily dose is 200 mg per day. topiramate (TOPAMAX) 50 mg tablet Take 3 tablets by mouth once daily. montelukast (SINGULAIR) 10 mg tablet Take 1 tablet by mouth daily at bedtime. gabapentin (NEURONTIN) 300 mg capsule Take 4 capsules by mouth as directed for 180 days. albuterol HFA (PROVENTIL HFA, VENTOLIN HFA) 90 mcg/actuation inhaler Inhale 2 Puffs as instructed every 4 hours as needed for wheezing/shortness of breath. albuterol HFA (PROAIR HFA) 90 mcg/actuation inhaler Inhale 2 Puffs as instructed every 4 hours as needed. methocarbamol 1,000 mg tablet Take 1 tablet by mouth three times a day. FLUoxetine (PROZAC) 40 mg capsule Take 1 capsule by mouth once daily. traZODone (DESYREL) 100 mg tablet Take 2 tablets by mouth daily at bedtime. No current facility-administered medications for this visit. I have confirmed and edited as necessary the chief complaint, medications, past medical, family and social histories obtained by others. Objective BP 110/77 Pulse 61 Resp 16 Ht 5' 7" (1.70m) Wt 252 lb (114.3kg) SpO2 98% BMI 39.46 kg/(m^2). Physical Exam Vitals reviewed. Constitutional: General: He is not in acute distress. Appearance: Normal appearance. HENT: Head: Normocephalic and atraumatic. Mouth/Throat: Mouth: Mucous membranes are moist. Eyes: Extraocular Movements: Extraocular movements intact. Cardiovascular: Rate and Rhythm: Normal rate and regular rhythm. Heart sounds: Normal heart sounds. No murmur heard. Pulmonary: Effort: Pulmonary effort is normal. No respiratory distress. Breath sounds: Normal breath sounds. No stridor. No wheezing, rhonchi or rales. Musculoskeletal: General: No swelling. Normal range of motion. Cervical back: Normal range of motion and neck supple. No rigidity. Skin: General: Skin is warm and dry. Neurological: General: No focal deficit present. Mental Status: He is alert and oriented to person, place, and time. Mental status is at baseline. Psychiatric: Mood and Affect: Mood normal. Behavior: Behavior normal. Thought Content: Thought content normal. Data Reviewed: ED visit from 07/31 Records from psych stay are unavailable at this time. ASSESSMENT/PLAN: 1. Anxiety and depression - ICD9: 300.00, 311, ICD10: F41.9, F32.A (primary diagnosis) - stable, continue the higher dose of prozac at 40mg - continues on same dose of trzaodone - continue with follow up with psychiatry and counseling as scheduled. - FLUOXETINE 40 MG CAPSULE - TRAZODONE 100 MG TABLET 2. Muscle spasm of back - ICD9: 724.8, ICD10: M62.830 - acute on chronic spasms, takes robaxin as needed - METHOCARBAMOL 1,000 MG TABLET 3. Restless leg syndrome - ICD9: 333.94, ICD10: G25.81 - chronic, nightly symptoms, takes robaxin as needed - METHOCARBAMOL 1,000 MG TABLET 4. COVID-19 vaccine administered - ICD9: V04.89, ICD10: Z23 - PFIZER-BIONTECH COVID-19 VACCINE AGE 12+ YR (COMIRNATY) Return in about 1 month (around 09/08/2024) for follow up with PCP. Discussed the above with the patient using shared decision making. The patient is in agreement with the diagnostic and treatment plans. Gurmeet Finn DO 08/08/24 documented in this encounter [facility] 08-08-2024 Telephone encounter Note Summary: 2ND NO SHOW No Show Documentation Sam Rai no showed for an appointment on 08/07/2024 with Remi Ruth APRN.CNP at 1:20 pm. He was scheduled for er follow up. The patient called in regarding his missed appointment. He rescheduled for 08/08/2024 Sam stated the reason that he missed his appointment was because scheduling error/conflict . Resources discussed/offered to patient: N/A No show determined to be fault of patient: Yes This is the patients second no show in the last 12 months. Patient was rescheduled for 08/08/2024. Letter mailed : Yes Is this the Third or Fourth "No Show"? No Tiffanie Mc August 08, 2024 12:53 PM [facility] 08-08-2024 Miscellaneous Notes Summary: 2ND NO SHOW No Show Documentation Sam Rai no showed for an appointment on 08/07/2024 with Remi Ruth APRN.PIG MACHINE CRANE OPERATOR at 1:20 pm. He was scheduled for er follow up. The patient called in regarding his missed appointment. He rescheduled for 08/08/2024 Sam stated the reason that he missed his appointment was because scheduling error/conflict . Resources discussed/offered to patient: N/A No show determined to be fault of patient: Yes This is the patients second no show in the last 12 months. Patient was rescheduled for 08/08/2024. Letter mailed : Yes Is this the Third or Fourth "No Show"? No Tiffanie Mc August 08, 2024 12:53 PM documented in this encounter [facility] 08-07-2024 Telephone encounter Note Asking for 90 day [facility] 08-07-2024 Miscellaneous Notes Asking for 90 day documented in this encounter [facility] 08-02-2024 Note [facility] 08-02-2024 History of Present illness Narrative ED Follow Up: Patient discharged from [facility] ED on 07/31/24. 1. How are you feeling since your ED visit? Have your symptoms improved or resolved? Not applicable 2. Were you prescribed any medications while in the ED or advised to stop any medication? Not applicable - If yes, were you able to fill your prescriptions? Not applicable -if stopped medication, what was the medication? 3. Were you advised to schedule a follow up appointment with your provider? Not applicable - If no, Do you feel like you need an appointment scheduled? Not applicable - If yes, Do you need this scheduled now or has this already been scheduled? No and Not applicable 4. Were you able to contact the office or transportation solutions manager provider prior to your ED visit? Not applicable 5. Is there anything else I can do for you today? Not applicable Message was left on VM looks like patient may have been transferred to documented in this encounter [facility] 08-02-2024 Telephone encounter Note Summary: 1ST NO SHOW No Show Documentation Sam Rai no showed for an appointment on 08/01/2024 with Remi Ruth APRN.CNP at 9:20 am. He was scheduled for follow up on medication. Patient called in regarding his missed appointment and rescheduled. Resources discussed/offered to patient: N/A No show determined to be fault of patient: Yes This is the patients first no show in the last 12 months. Patient was rescheduled for 08/07/2024. Letter mailed : Yes Is this the Third or Fourth "No Show"? No Tiffanie Mc August 02, 2024 10:31 AM [facility] 08-02-2024 Miscellaneous Notes Summary: 1ST NO SHOW No Show Documentation Sam Rai no showed for an appointment on 08/01/2024 with Remi Ruth APRN.CNP at 9:20 am. He was scheduled for follow up on medication. Patient called in regarding his missed appointment and rescheduled. Resources discussed/offered to patient: N/A No show determined to be fault of patient: Yes This is the patients first no show in the last 12 months. Patient was rescheduled for 08/07/2024. Letter mailed : Yes Is this the Third or Fourth "No Show"? No Tiffanie Mc August 02, 2024 10:31 AM documented in this encounter [facility] 07-31-2024 Note Formatting of this n ote is different from the original. BEHAVIORAL HEALTH INTAKE NOTE SERVICE DATE: 07/31/2024 SERVICE TIME: 2:02 Nature of the crisis: Depression Presenting Problem: Sam Rai is a 48 year old male [facility] ED from home by self for severe depression and suicidal ideation. Pt is A&Ox4, denies all HI/AVH; speech was limited and soft with brief delays in response timing; appeared hopeless; has a history of depression and anxiety and is med compliant on Atarax 50mg cut in half - up to 25mg, 3xday and Prozac 10mg, prescribed by PCP Remi Ruth CNP, at a [facility] in [place]. Pt reports he has begun seeing changes in his mental health in January, has had several big stressors during the course of this year and states, everything has just gotten so much worse lately." Currently feels that "the world would be better off if I wasn't in it" On this day, pt brought himself to the ED and admitted to severe depression and significant suicidal ideation with formulation of method and plan; he states no intent today, although he has had intent on some days throughout the past thirty days. He is hopeless, feels like a burden, and feels that his loved ones would be better off without him; was unsure if the cat would miss him were he gone. 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 Pt was unspecific with his goals and just stated that he wants "help." SOCIAL HISTORY: Social History Tobacco Use Smoking status: Never Smokeless tobacco: Never Vaping Use Vaping status: Never Used Substance Use Topics Alcohol use: Yes Comment: social Drug use: Never Comment: No reported history. MEDICATIONS: meloxicam (MOBIC) 15 mg tablet Take 1 tablet by mouth once daily. FLUoxetine (PROZAC) 10 mg capsule Take 1 capsule by mouth once daily. valACYclovir (VALTREX) 500 mg tablet Take 1 tablet by mouth once daily. hydrOXYzine HCl (ATARAX) 50 mg tablet Take 1 tablet by mouth three times a day as needed for anxiety. SUMAtriptan (IMITREX) 50 mg tablet Take 50 mg by mouth as needed for migraine headache (see administration instructions). May repeat dose after 2 hours if needed. Maximum daily dose is 200 mg per day. topiramate (TOPAMAX) 50 mg tablet Take 3 tablets by mouth once daily. montelukast (SINGULAIR) 10 mg tablet Take 1 tablet by mouth daily at bedtime. traZODone (DESYREL) 100 mg tablet Take 2 tablets by mouth daily at bedtime. gabapentin (NEURONTIN) 300 mg capsule Take 4 capsules by mouth as directed for 180 days. albuterol HFA (PROVENTIL HFA, VENTOLIN HFA) 90 mcg/actuation inhaler Inhale 2 Puffs as instructed every 4 hours as needed for wheezing/shortness of breath. albuterol HFA (PROAIR HFA) 90 mcg/actuation inhaler Inhale 2 Puffs as instructed every 4 hours as needed. No medication comments found. 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 symptoms temporarily Legal History: No Legal History Legal Details: none found How Legal Issues Were Verified: [facility] Sexual Offender Website, [facility] St[employer] Making Machine Operator of Courts Website, [facility] St[employer] Making Machine Operator of Courts Website Gender Specific Test: Not Applicable Sex at Time of : Male Patient Identified Gender: Male Preferred Pronoun: He/Him/His Sexual Orientation: Belcher/Lesbian Cultural/Denominational Concerns Cultural Issues or Concerns That Might Affect Treatment: none Denominational/Spiritual Issues or Concerns That Might Affect Treatment: none OBSERVATIONS Level of Consciousness Alert: Yes Orientation: Person, Place, Time, Situation Speech Rate: Appropriate Quality: Clear Quantity: Appropriate Thought Processes Thought: Difficulty Concentrating, Racing Thought Thought Content/Perceptions Delusions: None Observed Hallucinations: Patient Denies, None Evident Illusions: Patient Denies, None Evident Derealization: No Depersonalization: No Memory: Intact Recent, Intact Remote Cognition Impairment: Attention/Concentration Intelligence Evaluation: Average Mood & Affect Patient Described Mood: Like the world would be better off if I wasn't in it Other Wireworker Supervisor Described Mood: severely depressed Wireworker Supervisor: this naval aircrewman helicopter Observed/Reported: Apathetic, Depressed, Hopelessness, Panic Attacks Range of Affect: Blunted Sleep: Sleeping Too Much, Difficulty Falling Asleep, Difficulty Staying Asleep Appetite: Lack of Appetite Energy: Decreased Energy Anxiety/Trauma: Hyper Vigilance, Panic Attacks, Restlessness, Unable to Control Worry Non-Suicidal Self Injury Non-Suicidal Self Injury: Past, Ideation Past History: four years ago pt took half a bottle of benadryl Suicidal Ideation Suicidal Ideation: Current, Past Attempts Current Behavior: Thinking, Gesturing Additional Risk Factors/Warning Signs: Anxiety, Changes in Sleep, Feeling Trapped, Hopelessness, History of Physical, Emotional, or Sexual Abuse/Neglect or Bullying, Prior Suicide Attempts, Loss of Support System, No Future Orientation, Male, Researching Methods, Recent Trauma Identified Responsibility to Others: feels incapable of providing appropriate care to when he returns from rehab Number of Attempts Reported by Patient: 1 Last Attempted: 4 years ago Method: half a bottle of benadryl Homicidal Ideation Homicidal Ideation: None, Patient Denies Non-Lethal Harm to Others or Damage/Destruction to Property Harm to Others or Damage/Destruction of Property: None, Patient Denies Access To Weapons Access To Weapons: Yes Type of Weapon/Description of Risk: no gun; pt has access to medications; owns a sword History of Impulsive Behaviors History: "sometimes" Medical Conditions Medical Conditions Increasing Risks: None CHEMICAL DEPENDENCY Substance Use: No Referral for Substance Abuse Services: No Current Chemical Dependency Providers: none ACTIVITY Activities of Daily Living: Independent Mobility: No Assistance Person Providing Information: MARCIA Serra Continence: Continent Other Medical Need/Equipment: (None noted) Other Considerations: (none noted) MENTAL HEALTH SERVICES: Current Mental Health Providers: none currently Inpatient Mental Health Treatment History: None SAFE-T Protocol with C-SSRS Step 1: Identify Risk Factors C-SSRS Suicidal Ideation Severity Month 1. Wish to be Yes 2. Current suicidal thoughts Yes 3. Suicidal thoughts w/ Method Yes 4. Suicidal Intent without Specific Plan Yes 5. Intent with Plan Yes C-SSRS Suicidal Behavior: Lifetime Yes Past 3 Months No Current and Past Psychiatric Dx: Mood Disorder Presenting Symptoms: Hopelessness or Despair, Anxiety and/or Panic Family History: Suicidal Behavior (brother has mental health issues - brother has admitted to attempting) Change in treatment: Access to lethal methods: Pt does not own a gun; owns a sword; has access to medications Step 2: Identify Protective Factors (Protective factors may not counteract significant acute suicide risk factors) Internal: (no reasons identified; does not know if cats would miss him) External:Beloved Pets Step 3: Specific questioning about Thoughts, Plans, and Suicidal Intent - (see Step 1 for Ideation Severity and Behavior) C-SSRS Suicidal Ideation Intensity Month Frequency Many times each day Duration 1-4 hours/a lot of time Controllability Can control thoughts with some difficulty Deterrents Uncertain that deterrents stopped you Reasons for Ideation Completely to end or stop the pain (you couldn't go on living with the pain or how you were feeling) (to end the pain and to release loved ones from needing to care) Total Score Suicidal Ideation Intensity Total Score: 19 Step 4: Guidelines to Determine Level of Risk and Develop Interventions to LOWER Risk Level RISK STRATIFICATION TRIAGE High Suicide Risk Establish a therapeutic relationship, Complete Intake function and encounter for requested service, Discuss case presentation with staff providing medical care. Discuss with on-call psychiatrist or accepting hospital entity as needed., Document contact information in Intake encounter, Note concern to providers about need for suicide precaution orders/constant observation, Follow-up and document disposition from patient's current level of care Moderate Suicide Risk Low Suicide Risk Step 5: Documentation Risk Level : Suicide Risk ( Initial Screening):: High Risk Actual risk determined to be : High Clinical Observation: Hopelessness or Despair, Anxiety and/or Panic Relevant Mental Status Evaluation: Pt is A&Ox4, with severe SI; denies all HI/AVH; speech was limited and soft with brief delays in response timing; appeared hopeless; has a history of depression and anxiety with worsening symptoms over the past year Methods of Suicide Risk Evaluation: [place] SAFE-T Brief Evaluation Summary: Warning Signs: Warning Signs: Anxiety, Changes in Sleep, Feeling Trapped, Hopelessness, History of Physical, Emotional, or Sexual Abuse/Neglect or Bullying, Prior Suicide Attempts, Loss of Support System, No Future Orientation, Male, Researching Methods, Recent Trauma] Risk Indicators: feels incapable of providing appropriate care to when he returns from rehab Protective Factors: none;pt does not know if his cat would miss him Access to Lethal Means: Pt has access to medication; owns a sword Collateral Sources Used and Relevant Information Obtained: ED RN Maryse Specific Assessment Data to Support Risk Determination Rationale for Actions Taken and Not Taken: Pt is highly depressed with significant suicidal ideation; hospitali Communication of Current Risk Stratification to: Current Medical Providers: Remi Ruth CNP Date 07/31/2024 Psychiatrist transportation solutions manager: N/A due to patient being transferred to a treatment provider outside of [facility] Other Contact and Role: INTERVENTIONS Sources of Information: Patient, Epic, ED Staff Patient Assessed by Intake via: Telephone Coordination of care with: ED RN Interventions: Therapeutic Interventions Therapeutic Interventions: Crisis Intervention, Crisis Assessment, Brief Solution Focused Techniques, Provision of Psycho-Education Goals/Objectives: Admission to inpatient psychiatric unit for further evaluation and treatment of symptoms of illness DISPOSITION & PLAN: Patient stated goals: Goals: Other Goal ("I dunno, just help") Coordination of Care with: ED presiding steward/Impressions: Inpatient Need Plan: Await medical clearance, Secure an inpatient bed, Obtain collateral information, Consult with Psychiatry on-call, ED Psych consult, or other provider Goals/Objectives: Admission to inpatient psychiatric unit for further evaluation and treatment of symptoms of illness Total time spent (minutes) in Supportive Care for this patient: 60 MEDICAL CLEARANCE Initial Date: 07/31/24 Initial Time: 1544 Reviewed medical history with physician: Yes Reviewed abnormal labs with physician: Yes Discussed case with Dr. Hinson who states that Sam Rai is a candidate for admission. Provider Stated Diagnosis: Major Depressive Disorder without Psychotic Features Admitting Provider: Dr. Hinson Admission Status: Full Admit Unit: Michael [facility]ta Bed#: 100 Unit Report Given To: referred outside [facility] Report Date: 07/31/24 Admission Type: Medical Certificate Is Patient Less Than 18 Years of Age or have a Guardian/Healthcare Power of Director Integrated?: No Disposition Date: 07/31/24 Disposition Time: 175 SIGNATURE: SARA Harley PATIENT NAME: Sam Rai DATE: July 31, 2024 TIME: 2:04 PM [facility] 07-31-2024 Miscellaneous Notes BEHAVIORAL HEALTH INTAKE NOTE SERVICE DATE: 07/31/2024 SERVICE TIME: 2:02 Nature of the crisis: Depression Presenting Problem: Sam Rai is a 48 year old male [facility] ED from home by self for severe depression and suicidal ideation. Pt is A&Ox4, denies all HI/AVH; speech was limited and soft with brief delays in response timing; appeared hopeless; has a history of depression and anxiety and is med compliant on Atarax 50mg cut in half - up to 25mg, 3xday and Prozac 10mg, prescribed by PCP Remi Ruth CNP, at a [facility] in [place]. Pt reports he has begun seeing changes in his mental health in January, has had several big stressors during the course of this year and states, everything has just gotten so much worse lately." Currently feels that "the world would be better off if I wasn't in it" On this day, pt brought himself to the ED and admitted to severe depression and significant suicidal ideation with formulation of method and plan; he states no intent today, although he has had intent on some days throughout the past thirty days. He is hopeless, feels like a burden, and feels that his loved ones would be better off without him; was unsure if the cat would miss him were he gone. 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 Pt was unspecific with his goals and just stated that he wants "help." SOCIAL HISTORY: Social History Tobacco Use Smoking status: Never Smokeless tobacco: Never Vaping Use Vaping status: Never Used Substance Use Topics Alcohol use: Yes Comment: social Drug use: Never Comment: No reported history. MEDICATIONS: meloxicam (MOBIC) 15 mg tablet Take 1 tablet by mouth once daily. FLUoxetine (PROZAC) 10 mg capsule Take 1 capsule by mouth once daily. valACYclovir (VALTREX) 500 mg tablet Take 1 tablet by mouth once daily. hydrOXYzine HCl (ATARAX) 50 mg tablet Take 1 tablet by mouth three times a day as needed for anxiety. SUMAtriptan (IMITREX) 50 mg tablet Take 50 mg by mouth as needed for migraine headache (see administration instructions). May repeat dose after 2 hours if needed. Maximum daily dose is 200 mg per day. topiramate (TOPAMAX) 50 mg tablet Take 3 tablets by mouth once daily. montelukast (SINGULAIR) 10 mg tablet Take 1 tablet by mouth daily at bedtime. traZODone (DESYREL) 100 mg tablet Take 2 tablets by mouth daily at bedtime. gabapentin (NEURONTIN) 300 mg capsule Take 4 capsules by mouth as directed for 180 days. albuterol HFA (PROVENTIL HFA, VENTOLIN HFA) 90 mcg/actuation inhaler Inhale 2 Puffs as instructed every 4 hours as needed for wheezing/shortness of breath. albuterol HFA (PROAIR HFA) 90 mcg/actuation inhaler Inhale 2 Puffs as instructed every 4 hours as needed. No medication comments found. 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 Legal History: No Legal History Legal Details: none found How Legal Issues Were Verified: [facility]'s Sexual Offender Website, [facility] St[employer] Making Machine Operator of Courts Website, [facility] Strap Making Machine Operator of Courts Website Gender Specific Test: Not Applicable Sex at Time of : Male Patient Identified Gender: Male Preferred Pronoun: He/Him/His Sexual Orientation: Belcher/Lesbian Cultural/Denominational Concerns Cultural Issues or Concerns That Might Affect Treatment: none Denominational/Spiritual Issues or Concerns That Might Affect Treatment: none OBSERVATIONS Level of Consciousness Alert: Yes Orientation: Person, Place, Time, Situation Speech Rate: Appropriate Quality: Clear Quantity: Appropriate Thought Processes Thought: Difficulty Concentrating, Racing Thought Thought Content/Perceptions Delusions: None Observed Hallucinations: Patient Denies, None Evident Illusions: Patient Denies, None Evident Derealization: No Depersonalization: No Memory: Intact Recent, Intact Remote Cognition Impairment: Attention/Concentration Intelligence Evaluation: Average Mood & Affect Patient Described Mood: Like the world would be better off if I wasn't in it Other Wireworker Supervisor Described Mood: severely depressed Wireworker Supervisor: this naval aircrewman helicopter Observed/Reported: Apathetic, Depressed, Hopelessness, Panic Attacks Range of Affect: Blunted Sleep: Sleeping Too Much, Difficulty Falling Asleep, Difficulty Staying Asleep Appetite: Lack of Appetite Energy: Decreased Energy Anxiety/Trauma: Hyper Vigilance, Panic Attacks, Restlessness, Unable to Control Worry Non-Suicidal Self Injury Non-Suicidal Self Injury: Past, Ideation Past History: four years ago pt took half a bottle of benadryl Suicidal Ideation Suicidal Ideation: Current, Past Attempts Current Behavior: Thinking, Gesturing Additional Risk Factors/Warning Signs: Anxiety, Changes in Sleep, Feeling Trapped, Hopelessness, History of Physical, Emotional, or Sexual Abuse/Neglect or Bullying, Prior Suicide Attempts, Loss of Support System, No Future Orientation, Male, Researching Methods, Recent Trauma Identified Responsibility to Others: feels incapable of providing appropriate care to when he returns from rehab Number of Attempts Reported by Patient: 1 Last Attempted: 4 years ago Method: half a bottle of benadryl Homicidal Ideation Homicidal Ideation: None, Patient Denies Non-Lethal Harm to Others or Damage/Destruction to Property Harm to Others or Damage/Destruction of Property: None, Patient Denies Access To Weapons Access To Weapons: Yes Type of Weapon/Description of Risk: no gun; pt has access to medications; owns a sword History of Impulsive Behaviors History: "sometimes" Medical Conditions Medical Conditions Increasing Risks: None CHEMICAL DEPENDENCY Substance Use: No Referral for Substance Abuse Services: No Current Chemical Dependency Providers: none ACTIVITY Activities of Daily Living: Independent Mobility: No Assistance Person Providing Information: MARCIA Serra Continence: Continent Other Medical Need/Equipment: (None noted) Other Considerations: (none noted) MENTAL HEALTH SERVICES: Current Mental Health Providers: none currently Inpatient Mental Health Treatment History: None SAFE-T Protocol with C-SSRS Step 1: Identify Risk Factors C-SSRS Suicidal Ideation Severity Month 1. Wish to be Yes 2. Current suicidal thoughts Yes 3. Suicidal thoughts w/ Method Yes 4. Suicidal Intent without Specific Plan Yes 5. Intent with Plan Yes C-SSRS Suicidal Behavior: Lifetime Yes Past 3 Months No Current and Past Psychiatric Dx: Mood Disorder Presenting Symptoms: Hopelessness or Despair, Anxiety and/or Panic Family History: Suicidal Behavior (brother has mental health issues - brother has admitted to attempting) Change in treatment: Access to lethal methods: Pt does not own a gun; owns a sword; has access to medications Step 2: Identify Protective Factors (Protective factors may not counteract significant acute suicide risk factors) Internal: (no reasons identified; does not know if cats would miss him) External:Beloved Pets Step 3: Specific questioning about Thoughts, Plans, and Suicidal Intent - (see Step 1 for Ideation Severity and Behavior) C-SSRS Suicidal Ideation Intensity Month Frequency Many times each day Duration 1-4 hours/a lot of time Controllability Can control thoughts with some difficulty Deterrents Uncertain that deterrents stopped you Reasons for Ideation Completely to end or stop the pain (you couldn't go on living with the pain or how you were feeling) (to end the pain and to release loved ones from needing to care) Total Score Suicidal Ideation Intensity Total Score: 19 Step 4: Guidelines to Determine Level of Risk and Develop Interventions to LOWER Risk Level RISK STRATIFICATION TRIAGE High Suicide Risk Establish a therapeutic relationship, Complete Intake function and encounter for requested service, Discuss case presentation with staff providing medical care. Discuss with on-call psychiatrist or accepting hospital entity as needed., Document contact information in Intake encounter, Note concern to providers about need for suicide precaution orders/constant observation, Follow-up and document disposition from patient's current level of care Moderate Suicide Risk Low Suicide Risk Step 5: Documentation Risk Level : Suicide Risk ( Initial Screening):: High Risk Actual risk determined to be : High Clinical Observation: Hopelessness or Despair, Anxiety and/or Panic Relevant Mental Status Evaluation: Pt is A&Ox4, with severe SI; denies all HI/AVH; speech was limited and soft with brief delays in response timing; appeared hopeless; has a history of depression and anxiety with worsening symptoms over the past year Methods of Suicide Risk Evaluation: [place] SAFE-T Brief Evaluation Summary: Warning Signs: Warning Signs: Anxiety, Changes in Sleep, Feeling Trapped, Hopelessness, History of Physical, Emotional, or Sexual Abuse/Neglect or Bullying, Prior Suicide Attempts, Loss of Support System, No Future Orientation, Male, Researching Methods, Recent Trauma] Risk Indicators: feels incapable of providing appropriate care to when he returns from rehab Protective Factors: none;pt does not know if his cat would miss him Access to Lethal Means: Pt has access to medication; owns a sword Collateral Sources Used and Relevant Information Obtained: ED RN Maryse Specific Assessment Data to Support Risk Determination Rationale for Actions Taken and Not Taken: Pt is highly depressed with significant suicidal ideation; hospitali Communication of Current Risk Stratification to: Current Medical Providers: Remi Ruth CNP Date 07/31/2024 Psychiatrist transportation solutions manager: N/A due to patient being transferred to a treatment provider outside of [facility] Other Contact and Role: INTERVENTIONS Sources of Information: Patient, Epic, ED Staff Patient Assessed by Intake via: Telephone Coordination of care with: ED RN Interventions: Therapeutic Interventions Therapeutic Interventions: Crisis Intervention, Crisis Assessment, Brief Solution Focused Techniques, Provision of Psycho-Education Goals/Objectives: Admission to inpatient psychiatric unit for further evaluation and treatment of symptoms of illness DISPOSITION & PLAN: Patient stated goals: Goals: Other Goal ("I dunno, just help") Coordination of Care with: ED presiding steward/Impressions: Inpatient Need Plan: Await medical clearance, Secure an inpatient bed, Obtain collateral information, Consult with Psychiatry on-call, ED Psych consult, or other provider Goals/Objectives: Admission to inpatient psychiatric unit for further evaluation and treatment of symptoms of illness Total time spent (minutes) in Supportive Care for this patient: 60 MEDICAL CLEARANCE Initial Date: 07/31/24 Initial Time: 1544 Reviewed medical history with physician: Yes Reviewed abnormal labs with physician: Yes Discussed case with Dr. Hinson who states that Sam Rai is a candidate for admission. Provider Stated Diagnosis: Major Depressive Disorder without Psychotic Features Admitting Provider: Dr. Hinson Admission Status: Full Admit Unit: Clear Campbell Bed#: 100 Unit Report Given To: referred outside [facility] Report Date: 07/31/24 Admission Type: Medical Certificate Is Patient Less Than 18 Years of Age or have a Guardian/Healthcare Power of Director Integrated?: No Disposition Date: 07/31/24 Disposition Time: 175 SIGNATURE: SARA Harley PATIENT NAME: Sam Rai DATE: July 31, 2024 TIME: 2:04 PM documented in this encounter [facility] 07-17-2024 Telephone encounter Note Sam Rai has been scheduled for chiro on 08/11/2024 at 8:00am, with Caleb Garza DC at [address] [address], [place] [address]. Raz Merino [facility] 07-17-2024 Miscellaneous Notes Sam Rai has been scheduled for chiro on 08/11/2024 at 8:00am, with Caleb Garza DC [address], [place] [address]. Raz Merino ----- Message from Jessy Granado sent at 07/17/2024 9:13 AM EDT ----- Regarding: Spine & Pain / OPEN / Chiropratic Apt. Request Contact: Patient has been identified by name and Date of (Y/N): y Patient: Sam Rai Date of : 1975 Provider for this encounter: NEW Reason for the call/escalation: Back pain / Would like Chiropractic Was Patient Referred to 911/Seek Emergency Treatment (Y/N): n Did Patient Agree (Y/N): n Was An Attempt Made To Transfer The Patient To The Office (Y/N): n Were You Able To Reach Someone At The Office (Y/N): n If Yes - Patient Was Transferred To (Caregivers Name): n If No - Which [facility] Napping Machine Operator Did You Speak With Regarding This Patient: n Was an appointment scheduled (Y/N): n Reason patient was requesting visit (RFV/signs and symptoms/diagnosis) : Back Pain Person calling if other than patient: n Return call to if other than patient: n Best contact number: [phone] Thank you, Jessy Hand July 17, 2024 9:13 AM documented in this encounter [facility] 07-17-2024 Telephone encounter Note ----- Message from Jessy Granado sent at 07/17/2024 9:13 AM EDT ----- Regarding: Spine & Pain / OPEN / Chiropratic Apt. Request Contact: Patient has been identified by name and Date of (Y/N): y Patient: Sam Rai Date of : 1975 Provider for this encounter: NEW Reason for the call/escalation: Back pain / Would like Chiropractic Was Patient Referred to 911/Seek Emergency Treatment (Y/N): n Did Patient Agree (Y/N): n Was An Attempt Made To Transfer The Patient To The Office (Y/N): n Were You Able To Reach Someone At The Office (Y/N): n If Yes - Patient Was Transferred To (Caregivers Name): n If No - Which [facility] Napping Machine Operator Did You Speak With Regarding This Patient: n Was an appointment scheduled (Y/N): n Reason patient was requesting visit (RFV/signs and symptoms/diagnosis) : Back Pain Person calling if other than patient: n Return call to if other than patient: n Best contact number: [phone] Thank you, Jessy Hand July 17, 2024 9:13 AM [facility] 07-14-2024 Telephone encounter Note ----- Message from Analy López sent at 07/14/2024 1:44 PM EDT ----- Regarding: Spine & Pain / OPEN / Chiropratic Apt. Request Subject Line Format: Medicine / [Provider Name] / [Issue] Select Primary Care Department Name For Pool Routing Assistance: [facility] => [facility] [[id number]] Patient: Sam Rai Date of : 1975 Primary Care Provider: Remi Ruth APRN.CNP Patient has been identified by name and Date of (Y/N): y Patient: Sam Rai Date of : 1975 Provider for this encounter: Remi Ruth APRN.CNP Reason for the call/escalation: pt requesting chiro services tool will not allow scheduling Was Patient Referred to [facility]/Seek Emergency Treatment (Y/N): n Did Patient Agree (Y/N): n Was An Attempt Made To Transfer The Patient To The Office (Y/N): n Were You Able To Reach Someone At The Office (Y/N): n If Yes - Patient Was Transferred To (Caregivers Name): n If No - Which [facility] Leadership Napping Machine Operator Did You Speak With Regarding This Patient: n Was an appointment scheduled (Y/N): n Reason patient was requesting visit (RFV/signs and symptoms/diagnosis) : chiro Person calling if other than patient: pt Return call to if other than patient: pt Best contact number: [phone] Thank you, Analy Yusef July 14, 2024 1:44 PM [facility] 07-14-2024 Miscellaneous Notes ----- Message from Analy López sent at 07/14/2024 1:44 PM EDT ----- Regarding: Spine & Pain / OPEN / Chiropratic Apt. Request Subject Line Format: Medicine / [Provider Name] / [Issue] Select Primary Care Department Name For Pool Routing Assistance: [facility] => [facility] [[id number]] Patient: Sam Rai Date of : 1975 Primary Care Provider: Remi Ruth APRN.CNP Patient has been identified by name and Date of (Y/N): y Patient: Sam Rai Date of : 1975 Provider for this encounter: Remi Ruth APRN.CNP Reason for the call/escalation: pt requesting chiro services tool will not allow scheduling Was Patient Referred to [facility]/Seek Emergency Treatment (Y/N): n Did Patient Agree (Y/N): n Was An Attempt Made To Transfer The Patient To The Office (Y/N): n Were You Able To Reach Someone At The Office (Y/N): n If Yes - Patient Was Transferred To (Caregivers Name): n If No - Which [facility] Napping Machine Operator Did You Speak With Regarding This Patient: n Was an appointment scheduled (Y/N): n Reason patient was requesting visit (RFV/signs and symptoms/diagnosis) : chiro Person calling if other than patient: pt Return call to if other than patient: pt Best contact number: [phone] Thank you, Analy Holbrook July 14, 2024 1:44 PM documented in this encounter [facility] 07-14-2024 Telephone encounter Note Called and LVM to call us back and schedule a new pt apt. [facility] 07-14-2024 Miscellaneous Notes Called and LVM to call us back and schedule a new pt apt. Referral was sent by Remi Ruth APRN.CNPoffice by Acute left-sided low back pain without sciatica. Raz Merino documented in this encounter [facility] 07-14-2024 Telephone encounter Note Referral was sent by Remi Ruth APRN.CNPoffice by Acute left-sided low back pain without sciatica. Raz Merino [facility] 07-13-2024 Note [facility] 07-13-2024 History of Present illness Narrative Images from the original note were not included. [facility] [address] [place] [address] Date of Evaluation: 07/13/2024 Patient Name: Sam Rai : 1975 Chief Complaint: Patient presents with: Follow Up: Follow up lower back pain seen [facility] a few week ago. Feels bubbles under the skin and it itches. And wants to go back on anxiety and depression meds. Nursing Intake: There are no exam notes on file for this visit. Subjective HPI Mr. Leistner is a 48 year old male who presents for: Continued lower back pain after a mechanical fall. Was seen in the office, XR negative for acute pathology, given robaxin. Reports no relief with robaxin. - Reports increased anxiety and depression symptoms since his has been in the hospital for medical concerns. Review of Systems Constitutional: Negative for activity change, appetite change, chills and fever. HENT: Negative for ear pain, hearing loss, sinus pressure, sinus pain, sore throat and trouble swallowing. Eyes: Negative for visual disturbance. Respiratory: Negative for cough, chest tightness, shortness of breath and wheezing. Cardiovascular: Negative for chest pain, palpitations and leg swelling. Gastrointestinal: Negative for abdominal pain, diarrhea, nausea and vomiting. Genitourinary: Negative for dysuria and frequency. Musculoskeletal: Positive for back pain. Negative for arthralgias and myalgias. Skin: Negative for pallor, rash and wound. Neurological: Negative for dizziness, light-headedness, numbness and headaches. Psychiatric/Behavioral: Negative for behavioral problems, confusion, hallucinations and suicidal ideas. The patient is nervous/anxious. PAST MEDICAL HISTORY Diagnosis Date Acute medial meniscus tear of right knee Anxiety Asthma Contact dermatitis Recurrence not specified. COVID-19 long hauler Depression Diverticulitis GERD (gastroesophageal reflux disease) Insufficiency fracture of tibia Migraines Obesity, morbid, BMI 40.0-49.9 ([facility]) Primary osteoarthritis of right knee Restless legs syndrome (RLS) Sinus infection PAST SURGICAL HISTORY Procedure Laterality Date CARPAL TUNNEL Right CHOLECYSTECTOMY HX in 1999 KNEE SURGERY HX Right scope and tibial transfer ORTHOPEDICS SURGERY HX Right Right Knee PAST SURGICAL HISTORY OF teeth removed TONSILLECTOMY HX FAMILY HISTORY Problem Relation Age of Onset Stroke Mother Lipids Mother Hypertension Mother Obesity Mother Asthma Mother COPD Mother Lipids Father Hypertension Father Alcohol/Drug Father Restless legs syndrome No Family History Obstructive Sleep Apnea No Family History Social History Tobacco Use Smoking status: Never Smokeless tobacco: Never Vaping Use Vaping status: Never Used Substance Use Topics Alcohol use: Yes Comment: social Drug use: Never Comment: No reported history. Current Outpatient Medications Medication Sig SUMAtriptan (IMITREX) 50 mg tablet Take 50 mg by mouth as needed for migraine headache (see administration instructions). May repeat dose after 2 hours if needed. Maximum daily dose is 200 mg per day. topiramate (TOPAMAX) 50 mg tablet Take 3 tablets by mouth once daily. montelukast (SINGULAIR) 10 mg tablet Take 1 tablet by mouth daily at bedtime. traZODone (DESYREL) 100 mg tablet Take 2 tablets by mouth daily at bedtime. gabapentin (NEURONTIN) 300 mg capsule Take 4 capsules by mouth as directed for 180 days. albuterol HFA (PROVENTIL HFA, VENTOLIN HFA) 90 mcg/actuation inhaler Inhale 2 Puffs as instructed every 4 hours as needed for wheezing/shortness of breath. albuterol HFA (PROAIR HFA) 90 mcg/actuation inhaler Inhale 2 Puffs as instructed every 4 hours as needed. meloxicam (MOBIC) 15 mg tablet Take 1 tablet by mouth once daily. lidocaine (LIDODERM) 5 % Apply 1 Patch as directed once daily for 5 days. to affected area. Remove patch after 12 hours. FLUoxetine (PROZAC) 10 mg capsule Take 1 capsule by mouth once daily. valACYclovir (VALTREX) 500 mg tablet Take 1 tablet by mouth once daily. hydrOXYzine HCl (ATARAX) 50 mg tablet Take 1 tablet by mouth three times a day as needed for anxiety. No current facility-administered medications for this visit. I have confirmed and edited as necessary the chief complaint, medications, past medical, family and social histories obtained by others. Objective BP 111/78 Pulse 73 Resp 18 Ht 5' 7" (1.70m) Wt 252 lb (114.3kg) SpO2 99% BMI 39.46 kg/(m^2). Physical Exam Vitals reviewed. Constitutional: General: He is not in acute distress. Appearance: Normal appearance. He is normal weight. HENT: Head: Normocephalic. Eyes: Extraocular Movements: Extraocular movements intact. Conjunctiva/sclera: Conjunctivae normal. Pupils: Pupils are equal, round, and reactive to light. Cardiovascular: Rate and Rhythm: Normal rate and regular rhythm. Pulses: Normal pulses. Heart sounds: Normal heart sounds. No murmur heard. No friction rub. No gallop. Pulmonary: Effort: Pulmonary effort is normal. Breath sounds: Normal breath sounds. No wheezing, rhonchi or rales. Abdominal: General: Bowel sounds are normal. Palpations: Abdomen is soft. Musculoskeletal: General: Normal range of motion. Cervical back: Normal range of motion. Lumbar back: Signs of trauma, spasms and tenderness present. No swelling, edema, deformity, lacerations or bony tenderness. Normal range of motion. Negative right straight leg raise test and negative left straight leg raise test. No scoliosis. Right lower leg: No edema. Left lower leg: No edema. Lymphadenopathy: Cervical: No cervical adenopathy. Skin: General: Skin is warm and dry. Findings: No lesion or rash. Neurological: General: No focal deficit present. Mental Status: He is alert and oriented to person, place, and time. Mental status is at baseline. Psychiatric: Attention and Perception: Attention and perception normal. Mood and Affect: Affect normal. Mood is anxious. Speech: Speech normal. Behavior: Behavior normal. Behavior is cooperative. Thought Content: Thought content normal. Cognition and Memory: Cognition and memory normal. Judgment: Judgment normal. Data Reviewed: Most recent imaging ASSESSMENT/PLAN: 1. Acute left-sided low back pain without sciatica - ICD9: 724.2, ICD10: M54.50 (primary diagnosis) - CONSULT TO PHYSICAL THERAPY - CONSULT TO CHIROPRACTOR - MELOXICAM 15 MG TABLET - LIDOCAINE 5 % TOPICAL PATCH 2. Encounter for immunization - ICD9: V03.89, ICD10: Z23 - INFLUENZA VACCINE, AGE 6MO-64YR, TRIVALENT (AFLURIA, FLULAVAL, FLUVIRIN, FLUZONE) - PNEUMOCOCCAL VACCINE, 20 VALENT (PREVNAR 20) 3. Anxiety and depression - ICD9: 300.00, 311, ICD10: F41.9, F32.A - FLUOXETINE 10 MG CAPSULE - HYDROXYZINE HCL 50 MG TABLET 4. Herpes zoster with complication - ICD9: 053.8, ICD10: B02.8 - VALACYCLOVIR 500 MG TABLET Remi Ruth APRN.PIG MACHINE CRANE OPERATOR Return if symptoms worsen or fail to improve. Discussed the above with the patient using shared decision making. The patient is in agreement with the diagnostic and treatment plans. documented in this encounter [facility] 06-22-2024 Telephone encounter Note Results sent in my chart [facility] 06-22-2024 Telephone encounter Note ----- Message from Remi Ruth APRN.CNP sent at 06/22/2024 4:02 PM EDT ----- Vitamin D is low, recommend daily replacement 2000 units daily. - Improved cholesterol, continue diet and exercise. B12 is low, can take oral over the counter supplement or IM injections once monthly in office. - Other labs look good, still waiting on A1C results. Remi Ruth APRN.CNP June 22, 2024 4:02 PM [facility] 06-22-2024 Miscellaneous Notes Results sent in my chart ----- Message from Remi Ruth APRN.CNP sent at 06/22/2024 4:02 PM EDT ----- Vitamin D is low, recommend daily replacement 2000 units daily. - Improved cholesterol, continue diet and exercise. B12 is low, can take oral over the counter supplement or IM injections once monthly in office. - Other labs look good, still waiting on A1C results. Remi Ruth APRN.CNP June 22, 2024 4:02 PM documented in this encounter [facility] 06-21-2024 Note [facility] 06-21-2024 History of Present illness Narrative Images from the original note were not included. [facility] [address] [place] [address] Date of Evaluation: 06/21/2024 Patient Name: Sam Rai : 1975 Chief Complaint: Patient presents with: Low Back Pain Nursing Intake: There are no exam notes on file for this visit. Subjective HPI Mr. Rai is a 48 year old male who presents for left sided low back pain for the past 4 days since falling on his back while cleaning his bath tub. He notes that it hurts to move and twisting motions hurt his lower back. Patient notes that he has trouble with pain during sleep. He has been experiencing disruptive sleep. He denies loss of bowel or bladder control, fevers, chills, numbness, tingling, falls. He notes that he previously fell from standing on knee and sustained fracture. Patient has been taking advil, ibuprofen and tylenol. He notes that it helps somewhat, but not completely. He has been using heat as well. He notes that he tried lidocaine patch and it did not seem to help. Review of Systems Constitutional: Negative for chills and fever. Eyes: Negative for visual disturbance. Respiratory: Negative for shortness of breath. Cardiovascular: Negative for chest pain. Gastrointestinal: Negative for abdominal pain, blood in stool, constipation and diarrhea. Genitourinary: Negative for difficulty urinating. Musculoskeletal: Positive for arthralgias and back pain. Skin: Negative for rash. Neurological: Negative for weakness and numbness. Hematological: Does not bruise/bleed easily. Psychiatric/Behavioral: Positive for sleep disturbance. PAST MEDICAL HISTORY No date: Acute medial meniscus tear of right knee No date: Anxiety No date: Asthma No date: Contact dermatitis Comment: Recurrence not specified. No date: COVID-19 long hauler No date: Depression No date: Diverticulitis No date: GERD (gastroesophageal reflux disease) No date: Insufficiency fracture of tibia No date: Migraines No date: Obesity, morbid, BMI 40.0-49.9 ([facility]) No date: Primary osteoarthritis of right knee No date: Restless legs syndrome (RLS) No date: Sinus infection PAST SURGICAL HISTORY No date: CARPAL TUNNEL; Right No date: CHOLECYSTECTOMY HX Comment: in 1999 No date: KNEE SURGERY HX; Right Comment: scope and tibial transfer No date: ORTHOPEDICS SURGERY HX; Right Comment: Right Knee No date: PAST SURGICAL HISTORY OF Comment: teeth removed No date: TONSILLECTOMY HX FAMILY HISTORY Problem Relation Age of Onset Stroke Mother Lipids Mother Hypertension Mother Obesity Mother Asthma Mother COPD Mother Lipids Father Hypertension Father Alcohol/Drug Father Restless legs syndrome No Family History Obstructive Sleep Apnea No Family History Social History Tobacco Use Smoking status: Never Smokeless tobacco: Never Vaping Use Vaping status: Never Used Substance Use Topics Alcohol use: Yes Comment: social Drug use: Never Comment: No reported history. Current Outpatient Medications Medication Sig hydrOXYzine HCl (ATARAX) 25 mg tablet Take 1 tablet by mouth three times a day as needed for itching/rash. SUMAtriptan (IMITREX) 50 mg tablet Take 50 mg by mouth as needed for migraine headache (see administration instructions). May repeat dose after 2 hours if needed. Maximum daily dose is 200 mg per day. topiramate (TOPAMAX) 50 mg tablet Take 3 tablets by mouth once daily. montelukast (SINGULAIR) 10 mg tablet Take 1 tablet by mouth daily at bedtime. traZODone (DESYREL) 100 mg tablet Take 2 tablets by mouth daily at bedtime. gabapentin (NEURONTIN) 300 mg capsule Take 4 capsules by mouth as directed for 180 days. albuterol HFA (PROVENTIL HFA, VENTOLIN HFA) 90 mcg/actuation inhaler Inhale 2 Puffs as instructed every 4 hours as needed for wheezing/shortness of breath. albuterol HFA (PROAIR HFA) 90 mcg/actuation inhaler Inhale 2 Puffs as instructed every 4 hours as needed. methocarbamol (ROBAXIN) 500 mg tablet Take 1 tablet by mouth three times a day. BE CAREFUL OF DROWSINESS No current facility-administered medications for this visit. I have confirmed and edited as necessary the chief complaint, medications, past medical, family and social histories obtained by others. Objective BP 112/76 Pulse 76 Wt 254 lb 9.6 oz (115.5kg) SpO2 98% Physical Exam Vitals reviewed. Constitutional: General: He is not in acute distress. Appearance: Normal appearance. He is obese. He is not ill-appearing, toxic-appearing or diaphoretic. HENT: Head: Normocephalic and atraumatic. Right Ear: External ear normal. Left Ear: External ear normal. Nose: Nose normal. Mouth/Throat: Mouth: Mucous membranes are moist. Pharynx: Oropharynx is clear. Eyes: General: No scleral icterus. Extraocular Movements: Extraocular movements intact. Conjunctiva/sclera: Conjunctivae normal. Pupils: Pupils are equal, round, and reactive to light. Cardiovascular: Rate and Rhythm: Normal rate and regular rhythm. Heart sounds: No murmur heard. No friction rub. No gallop. Pulmonary: Effort: Pulmonary effort is normal. No respiratory distress. Breath sounds: Normal breath sounds. No wheezing, rhonchi or rales. Abdominal: General: Abdomen is flat. Bowel sounds are normal. There is no distension. Palpations: Abdomen is soft. Tenderness: There is no abdominal tenderness. Musculoskeletal: General: Normal range of motion. Cervical back: Normal range of motion. No bony tenderness. Thoracic back: No bony tenderness. Lumbar back: Tenderness present. No bony tenderness. Right lower leg: No edema. Left lower leg: No edema. Skin: General: Skin is warm and dry. Coloration: Skin is not jaundiced. Neurological: Mental Status: He is alert and oriented to person, place, and time. Psychiatric: Mood and Affect: Mood normal. Behavior: Behavior normal. Thought Content: Thought content normal. Judgment: Judgment normal. Data Reviewed: No new labs ASSESSMENT/PLAN: 1. Acute left-sided low back pain without sciatica - ICD9: 724.2, ICD10: M54.50 - back pain following fall - XR LUMBAR MOTION 4V AP/LAT/ FLEX/EXT - METHOCARBAMOL 500 MG TABLET Dolly Rodas MD Return in about 1 month (around 07/22/2024). Discussed the above with the patient using shared decision making. The patient is in agreement with the diagnostic and treatment plans. documented in this encounter [facility] 06-09-2024 Note [facility] 06-09-2024 History of Present illness Narrative Images from the original note were not included. [facility] [place] [address] Date of Evaluation: 06/09/2024 Patient Name: Sam Rai : 1975 Chief Complaint: Patient presents with: Follow Up: Following up on rash getting worse Nursing Intake: There are no exam notes on file for this visit. Subjective HPI Mr. Rai is a 48 year old male who presents for: Follow up Rash on arms and legs, not improving with topical or medrol dose pack. Reports using oatmeal bath and topical anti-itch. Review of Systems Constitutional: Negative for activity change, appetite change, chills and fever. HENT: Negative for ear pain, hearing loss, sinus pressure, sinus pain, sore throat and trouble swallowing. Eyes: Negative for visual disturbance. Respiratory: Negative for cough, chest tightness, shortness of breath and wheezing. Cardiovascular: Negative for chest pain, palpitations and leg swelling. Gastrointestinal: Negative for abdominal pain, diarrhea, nausea and vomiting. Genitourinary: Negative for dysuria and frequency. Musculoskeletal: Negative for arthralgias and myalgias. Skin: Positive for rash. Negative for pallor and wound. Neurological: Negative for dizziness, light-headedness, numbness and headaches. Psychiatric/Behavioral: Negative for behavioral problems, confusion, hallucinations and suicidal ideas. PAST MEDICAL HISTORY No date: Acute medial meniscus tear of right knee No date: Anxiety No date: Asthma No date: Contact dermatitis Comment: Recurrence not specified. No date: COVID-19 long hauler No date: Depression No date: Diverticulitis No date: GERD (gastroesophageal reflux disease) No date: Insufficiency fracture of tibia No date: Migraines No date: Obesity, morbid, BMI 40.0-49.9 ([facility]) No date: Primary osteoarthritis of right knee No date: Restless legs syndrome (RLS) No date: Sinus infection PAST SURGICAL HISTORY No date: CARPAL TUNNEL; Right No date: CHOLECYSTECTOMY HX Comment: in 1999 No date: KNEE SURGERY HX; Right Comment: scope and tibial transfer No date: ORTHOPEDICS SURGERY HX; Right Comment: Right Knee No date: PAST SURGICAL HISTORY OF Comment: teeth removed No date: TONSILLECTOMY HX FAMILY HISTORY Problem Relation Age of Onset Stroke Mother Lipids Mother Hypertension Mother Obesity Mother Asthma Mother COPD Mother Lipids Father Hypertension Father Alcohol/Drug Father Restless legs syndrome No Family History Obstructive Sleep Apnea No Family History Social History Tobacco Use Smoking status: Never Smokeless tobacco: Never Vaping Use Vaping Use: Never used Substance Use Topics Alcohol use: Yes Comment: social Drug use: Never Comment: No reported history. Current Outpatient Medications Medication Sig SUMAtriptan (IMITREX) 50 mg tablet Take 50 mg by mouth as needed for migraine headache (see administration instructions). May repeat dose after 2 hours if needed. Maximum daily dose is 200 mg per day. topiramate (TOPAMAX) 50 mg tablet Take 3 tablets by mouth once daily. montelukast (SINGULAIR) 10 mg tablet Take 1 tablet by mouth daily at bedtime. traZODone (DESYREL) 100 mg tablet Take 2 tablets by mouth daily at bedtime. gabapentin (NEURONTIN) 300 mg capsule Take 4 capsules by mouth as directed for 180 days. albuterol HFA (PROVENTIL HFA, VENTOLIN HFA) 90 mcg/actuation inhaler Inhale 2 Puffs as instructed every 4 hours as needed for wheezing/shortness of breath. albuterol HFA (PROAIR HFA) 90 mcg/actuation inhaler Inhale 2 Puffs as instructed every 4 hours as needed. hydrOXYzine HCl (ATARAX) 25 mg tablet Take 1 tablet by mouth three times a day as needed for itching/rash. No current facility-administered medications for this visit. I have confirmed and edited as necessary the chief complaint, medications, past medical, family and social histories obtained by others. Objective BP 121/87 Pulse 76 Resp 18 Ht 5' 7" (1.70m) Wt 258 lb (117.0kg) SpO2 97% BMI 40.40 kg/(m^2). Physical Exam Vitals reviewed. Constitutional: General: He is not in acute distress. Appearance: Normal appearance. He is normal weight. HENT: Head: Normocephalic. Eyes: Extraocular Movements: Extraocular movements intact. Conjunctiva/sclera: Conjunctivae normal. Pupils: Pupils are equal, round, and reactive to light. Cardiovascular: Rate and Rhythm: Normal rate and regular rhythm. Pulses: Normal pulses. Heart sounds: Normal heart sounds. No murmur heard. No friction rub. No gallop. Pulmonary: Effort: Pulmonary effort is normal. Breath sounds: Normal breath sounds. No wheezing, rhonchi or rales. Abdominal: General: Bowel sounds are normal. Palpations: Abdomen is soft. Musculoskeletal: General: Normal range of motion. Cervical back: Normal range of motion. Right lower leg: No edema. Left lower leg: No edema. Lymphadenopathy: Cervical: No cervical adenopathy. Skin: General: Skin is warm and dry. Findings: Rash present. No lesion. Neurological: General: No focal deficit present. Mental Status: He is alert and oriented to person, place, and time. Mental status is at baseline. Psychiatric: Mood and Affect: Mood normal. Behavior: Behavior normal. Data Reviewed: No new labs ASSESSMENT/PLAN: 1. Dermatitis - ICD9: 692.9, ICD10: L30.9 (primary diagnosis) - Anti itch therapy of Calomine lotion, Oatmeal baths, and Rx for Atarax recommended prn - discussed skin care of rash - follow up if symptoms persist or worsen. - BETAMETHASONE ACETATE AND SODIUM PHOS 6 MG/ML SUSPENSION FOR INJECTION - TRIAMCINOLONE ACETONIDE 40 MG/ML SUSPENSION FOR INJECTION - HYDROXYZINE HCL 25 MG TABLET 2. Rash - ICD9: 782.1, ICD10: R21 - BETAMETHASONE ACETATE AND SODIUM PHOS 6 MG/ML SUSPENSION FOR INJECTION - TRIAMCINOLONE ACETONIDE 40 MG/ML SUSPENSION FOR INJECTION - HYDROXYZINE HCL 25 MG TABLET Remi Ruth APRN.PIG MACHINE CRANE OPERATOR Return if symptoms worsen or fail to improve. Discussed the above with the patient using shared decision making. The patient is in agreement with the diagnostic and treatment plans. documented in this encounter [facility] 06-09-2024 Nurse Note Patient has been identified by name and date of : Yes Sam is here for an injection of Kenalog 40 mg Dose: 1 Route: Intramuscular Given without incident. Site: right buttock Supervisor Picking Crew: [employer]eva Lot #: [id number] [facility] #: [id number] Expiration Date: 10/31/25 Remi Ruth CNP present in clinic at time of injection. The date due for the next injection is . Chloe Mc LPN Patient has been identified by name and date of : Yes Sam is here for an injection of Celestone 6ml Dose: 1 Route: Intramuscular Given without incident. Site: left buttock Supervisor Picking Crew: [employer] Lot #: [id number] [facility] #: [id number] Expiration Date: 10/31/25 Remi Mastrucci PIG MACHINE CRANE OPERATOR present in clinic at time of injection. The date due for the next injection is . Chloe Mc LPN [facility] 06-09-2024 Nurse Note Patient has been identified by name and date of : Yes Sam is here for an injection of Kenalog 40 mg Dose: 1 Route: Intramuscular Given without incident. Site: right buttock Supervisor Picking Crew: [employer]eva Lot #: [id number] [facility] #: [id number] Expiration Date: 10/31/25 Remi Ruth, MARILEE present in clinic at time of injection. The date due for the next injection is . Chloe Mc LPN Patient has been identified by name and date of : Yes Sam is here for an injection of Celestone 6ml Dose: 1 Route: Intramuscular Given without incident. Site: left buttock Supervisor Picking Crew: [employer] Lot #: [id number] [facility] #: [id number] Expiration Date: 10/31/25 Remi Ruth PIG MACHINE CRANE OPERATOR present in clinic at time of injection. The date due for the next injection is . Chloe Mc LPN documented in this encounter [facility] 05-31-2024 History of Present illness Narrative Images from the original note were not included. [facility] [place] [address] Date of Evaluation: 05/31/2024 Patient Name: Sam Rai : 1975 Chief Complaint: Patient presents with: Established Patient: Transfer of care sinus infection not getting better states it never went away after having covid a few months ago. Feels worse now then went he went into the walk in clinic. Nursing Intake: There are no exam notes on file for this visit. Subjective HPI Mr. Rai is a 48 year old male who presents for: Transfer of care. Current concerns: Reports with Sinus infection/congestion since diagnosed with Covid in April. Reports seen at urgent care last week and was started on Augmentin but reports worsening symptoms. Review of Systems Constitutional: Positive for fatigue. Negative for activity change, appetite change, chills and fever. HENT: Positive for congestion, sinus pressure, sinus pain and sore throat. Negative for ear pain, hearing loss and trouble swallowing. Eyes: Negative for visual disturbance. Respiratory: Positive for cough. Negative for chest tightness, shortness of breath and wheezing. Cardiovascular: Negative for chest pain, palpitations and leg swelling. Gastrointestinal: Negative for abdominal pain, diarrhea, nausea and vomiting. Genitourinary: Negative for dysuria and frequency. Musculoskeletal: Negative for arthralgias and myalgias. Skin: Negative for pallor, rash and wound. Neurological: Negative for dizziness, light-headedness, numbness and headaches. Psychiatric/Behavioral: Negative for behavioral problems, confusion, hallucinations and suicidal ideas. PAST MEDICAL HISTORY No date: Acute medial meniscus tear of right knee No date: Anxiety No date: Asthma No date: Contact dermatitis Comment: Recurrence not specified. No date: COVID-19 long hauler No date: Depression No date: Diverticulitis No date: GERD (gastroesophageal reflux disease) No date: Insufficiency fracture of tibia No date: Migraines No date: Obesity, morbid, BMI 40.0-49.9 ([facility] [facility]) No date: Primary osteoarthritis of right knee No date: Restless legs syndrome (RLS) No date: Sinus infection PAST SURGICAL HISTORY No date: CARPAL TUNNEL; Right No date: CHOLECYSTECTOMY HX Comment: in 1999 No date: KNEE SURGERY HX; Right Comment: scope and tibial transfer No date: ORTHOPEDICS SURGERY HX; Right Comment: Right Knee No date: PAST SURGICAL HISTORY OF Comment: teeth removed No date: TONSILLECTOMY HX FAMILY HISTORY Problem Relation Age of Onset Stroke Mother Lipids Mother Hypertension Mother Obesity Mother Asthma Mother COPD Mother Lipids Father Hypertension Father Alcohol/Drug Father Restless legs syndrome No Family History Obstructive Sleep Apnea No Family History Social History Tobacco Use Smoking status: Never Smokeless tobacco: Never Vaping Use Vaping Use: Never used Substance Use Topics Alcohol use: Yes Comment: social Drug use: Never Comment: No reported history. Current Outpatient Medications Medication Sig SUMAtriptan (IMITREX) 50 mg tablet Take 50 mg by mouth as needed for migraine headache (see administration instructions). May repeat dose after 2 hours if needed. Maximum daily dose is 200 mg per day. triamcinolone acetonide (KENALOG) 0.5 % cream Apply as directed to affected area twice daily. traZODone (DESYREL) 100 mg tablet Take 2 tablets by mouth daily at bedtime. gabapentin (NEURONTIN) 300 mg capsule Take 4 capsules by mouth as directed for 180 days. albuterol HFA (PROVENTIL HFA, VENTOLIN HFA) 90 mcg/actuation inhaler Inhale 2 Puffs as instructed every 4 hours as needed for wheezing/shortness of breath. albuterol HFA (PROAIR HFA) 90 mcg/actuation inhaler Inhale 2 Puffs as instructed every 4 hours as needed. topiramate (TOPAMAX) 50 mg tablet Take 3 tablets by mouth once daily. montelukast (SINGULAIR) 10 mg tablet Take 1 tablet by mouth daily at bedtime. pseudoephedrine (SUDAFED) 30 mg tablet Take 1 tablet by mouth every 6 hours as needed for cold/allergy symptoms for up to 7 days. sodium chloride (NASAL MOISTURIZING) 0.65 % nasal spray Use 1 [place] in the nose as needed for cold/allergy symptoms for up to 7 days. as directed methylPREDNISolone (MEDROL, ANDRE,) 4 mg Dose-Pack As instructed per package No current facility-administered medications for this visit. I have confirmed and edited as necessary the chief complaint, medications, past medical, family and social histories obtained by others. Objective BP 128/85 Pulse 75 Resp 18 Ht 5' 7" (1.70m) Wt 258 lb (117.0kg) SpO2 97% BMI 40.40 kg/(m^2). Physical Exam Vitals reviewed. Constitutional: General: He is not in acute distress. Appearance: Normal appearance. He is normal weight. HENT: Head: Normocephalic. Right Ear: Tympanic membrane, ear canal and external ear normal. Left Ear: Tympanic membrane, ear canal and external ear normal. Nose: Congestion and rhinorrhea present. Mouth/Throat: Mouth: Mucous membranes are moist. Pharynx: Oropharynx is clear. Eyes: Extraocular Movements: Extraocular movements intact. Conjunctiva/sclera: Conjunctivae normal. Pupils: Pupils are equal, round, and reactive to light. Cardiovascular: Rate and Rhythm: Normal rate and regular rhythm. Pulses: Normal pulses. Heart sounds: Normal heart sounds. No murmur heard. No friction rub. No gallop. Pulmonary: Effort: Pulmonary effort is normal. Breath sounds: Normal breath sounds. No wheezing, rhonchi or rales. Musculoskeletal: General: Normal range of motion. Cervical back: Normal range of motion. Right lower leg: No edema. Left lower leg: No edema. Lymphadenopathy: Cervical: No cervical adenopathy. Skin: General: Skin is warm and dry. Findings: No lesion or rash. Neurological: General: No focal deficit present. Mental Status: He is alert and oriented to person, place, and time. Mental status is at baseline. Psychiatric: Mood and Affect: Mood normal. Behavior: Behavior normal. Data Reviewed: No new labs ASSESSMENT/PLAN: 1. Encounter to establish care - ICD9: V65.8, ICD10: Z76.89 (primary diagnosis) See below 2. Sinus congestion - ICD9: 478.19, ICD10: R09.81 - MONTELUKAST 10 MG TABLET - PSEUDOEPHEDRINE 30 MG TABLET - NASAL MOISTURIZING 0.65 % SPRAY AEROSOL - METHYLPREDNISOLONE 4 MG TABLETS IN A DOSE PACK 3. Rash - ICD9: 782.1, ICD10: R21 Continue with cream prescribed previously. 4. Intractable migraine without status migrainosus, unspecified migraine type - ICD9: 346.91, ICD10: G43.919 - TOPIRAMATE 50 MG TABLET 5. Obesity, Class II, BMI 35-39.9 - ICD9: 278.00, ICD10: E66.9 Diet and exercise. 6. Vitamin D deficiency - ICD9: 268.9, ICD10: E55.9 - VITAMIN D 25 HYDROXY 7. Pre-diabetes - ICD9: 790.29, ICD10: R73.03 - COMPREHENSIVE METABOLIC PANEL - HEMOGLOBIN A1C 8. Dyslipidemia - ICD9: 272.4, ICD10: E78.5 - Control undetermined, due for labs - Counseled on healthy diet and regular exercise - Discussed need for and benefit of weight loss. BMI 40.41 kg/(m^2) - COMPLETE BLOOD COUNT AND DIFFERENTIAL - COMPREHENSIVE METABOLIC PANEL - LIPID PANEL BASIC - THYROID STIMULATING HORMONE 9. Prostate cancer screening - ICD9: V76.44, ICD10: Z12.5 - PSA/PROSTATE SPECIFIC ANTIGEN SCREENING 10. Colon cancer screening - ICD9: V76.51, ICD10: Z12.11 - COLOGUARD 11. B12 deficiency - ICD9: 266.2, ICD10: E53.8 - VITAMIN B12 Remi Ruth APRN.PIG MACHINE CRANE OPERATOR Return in about 6 months (around 12/01/2024) for follow up. Discussed the above with the patient using shared decision making. The patient is in agreement with the diagnostic and treatment plans. documented in this encounter [facility] 05-31-2024 Note [facility] 05-23-2024 Telephone encounter Note Patient called requesting the following refill Refill(s) Requested: Requested Prescriptions Pending Prescriptions Disp Refills gabapentin (NEURONTIN) 300 mg capsule 360 capsule 1 Sig: Take 4 capsules by mouth as directed for 180 days. ALLERGIES Allergen Reactions Bactrim [Sulfametho* Hives Erythromycin Base Hives, Shortness of Breath Sulfa (Sulfonamide * Unknown (home) [phone] (cell) Last Office Visit Date: 08/17/2023 Last Distance Health Visit: Visit date not found Future Appointment: 05/31/2024 The patients preferred pharmacy has been captured for this encounter? yes Request is for script(s) to be escript to pharmacy. Samia Rosa MA [facility] 05-23-2024 Miscellaneous Notes Patient called requesting the following refill Refill(s) Requested: Requested Prescriptions Pending Prescriptions Disp Refills gabapentin (NEURONTIN) 300 mg capsule 360 capsule 1 Sig: Take 4 capsules by mouth as directed for 180 days. ALLERGIES Allergen Reactions Bactrim [Sulfametho* Hives Erythromycin Base Hives, Shortness of Breath Sulfa (Sulfonamide * Unknown (home) [phone] (cell) Last Office Visit Date: 08/17/2023 Last Distance Health Visit: Visit date not found Future Appointment: 05/31/2024 The patients preferred pharmacy has been captured for this encounter? yes Request is for script(s) to be escript to pharmacy. Samia Rosa MA documented in this encounter [facility] 05-23-2024 Telephone encounter Note Last OV on 08/17 Next OV on 05/31 med pend [facility] 05-23-2024 Miscellaneous Notes Last OV on 08/17 Next OV on 05/31 med pend documented in this encounter [facility] 05-23-2024 Bennie Quan PA-C - 05/23/2024 9:26 AM EDT SINUSITIS: You have sinusitis, an infection of the sinus cavities around the nose. This infection usually follows a respiratory illness; it can also be related to allergies, changes in atmospheric pressure (flying, diving), or anything that blocks nasal drainage. Symptoms include: headache, facial pain, a thick nasal discharge, congestion, and cough. The treatment includes antibiotic therapy, increasing oral fluids, and pain medication if needed. Nose spray decongestants (Afrin, Erwin-Synephrine) and oral decongestants may be needed to reduce congestion and drainage. Rarely the sinus must be irrigated to remove the infected material. Sinusitis can lead to serious complications by spreading to other areas such as the eye or brain. Please call your doctor or return here right away if you have any of the following more serious symptoms: Unusual swelling around the eye or trouble seeing. Increasing pain, severe headache, or toothache. Nausea, vomiting, or unusual drowsiness. CONTACT DERMATITIS What is contact dermatitis? Contact dermatitis is inflammation of the skin (rash) that may result when the skin is touched by irritants or substances that cause an allergic reaction. Contact dermatitis can occur from exposure to many different compounds found both in the home and at work. There are two types of contact dermatitis: 1. Allergic contact dermatitis -- occurs when skin, which has become sensitized to a certain substance (allergen), comes in contact with that substance again 2. Irritant contact dermatitis -- occurs when the skin is exposed to a mild irritant (such as detergent or solvents) repeatedly over a long period of time or a strong irritant (such as acid, alkali, solvent, strong soap or detergent), which can cause immediate skin damage Common sources of allergic contact dermatitis Not everyone reacts to allergens. However, some people will react to an allergen which they had previously tolerated for many years. Skin can become allergic to a substance after many exposures or after just one exposure. Most people will have an allergic reaction to poison hayden after one exposure, for instance. This is a delayed skin reaction that typically develops 12 to 72 hours after exposure. Common sources of allergic contact dermatitis include: Nickel (a common metal used in jewelry) and other metals. Nickel has been reported to cause contact dermatitis in up to 10 percent of women. Gold is also becoming a widespread allergen. This type of allergic contact dermatitis can begin with intermittent rashes under earrings or other jewelry. Fragrances -- for example, those found in perfumes, soaps, lotions, and shampoos Cosmetics Topical medications such as antibiotics or anti-itch preparations -- these cause worsening of the problem and are often misinterpreted as infection Preservatives, which keep topical products from spoiling Sunscreens -- commonly cause a hive-like rash that can appear hours or days after sun exposure Rubber ingredients -- common source of work-related allergy. Rubber can cause immediate allergic reactions, such as itching, burning, or welts. Some people experience itching and tearing eyes or even shortness of breath. Common sources of irritant contact dermatitis Detergents, soaps, certified respiratory therapist, waxes and chemicals are substances that can irritate the skin. They can wear down the oily, protective layer on skin's surface and lead to irritant contact dermatitis. Irritant contact dermatitis is most common among people who regularly work with strong chemicals, such as restaurant, maintenance, and chemical workers. Are certain occupations at greater risk? Some occupations have more exposure to chemicals or substances that can result in sensitization and cause allergic contact dermatitis. These include dental workers, health care workers, florists, hairdressers, machinists, and photographers among many others. What are the symptoms of contact dermatitis? Contact dermatitis symptoms can range from mild redness and dryness to severe pain and peeling that can be disabling. Allergic contact dermatitis Reddening of skin (either in patches or all over the body) Intermittent dry, scaly patches of skin Blisters that ooze Burning or itching that is usually intense without visible skin sores (lesions) Swelling in the eyes, face, and genital areas (severe cases) Hives Sun sensitivity Darkened, "leathery" and cracked skin Allergic contact dermatitis can be very difficult to distinguish from other rashes. Irritant contact dermatitis Mild swelling of skin Stiff, tight feeling skin Dry, cracking skin Blisters Painful ulcers on the skin Symptoms vary depending on the cause of dermatitis. How can I know if I have contact dermatitis? If you have a skin rash that won't go away, visit your health care provider. If he or she suspects allergic contact dermatitis, patch testing may be performed. In this test, small samples of chemicals are placed on an area of skin to see if a rash develops. There are no needles or pricking of the skin. The areas of the skin are then evaluated after 48 hours and again at 96 hours or one week. The advantage of patch testing is that the allergens can be identified and your health care provider can effectively treat the rash. This avoids the need for chronic medications that have many potential side effects. There are no tests that can be done for irritant contact dermatitis. Tell your health care provider about any irritating substances or chemicals that you regularly come into contact with (including cosmetics, lotions, and nail martiniquais). With either type of contact dermatitis, you can avoid substances you suspect and see if the rash goes away. How is contact dermatitis treated? The form of treatment will depend on the cause of contact dermatitis. Common treatments include: cortisone-type creams, antihistamines, lotions and creams or oatmeal baths (to relieve itching). How can I prevent contact dermatitis? For allergic contact dermatitis: Avoid contact with substances that cause the skin rash. Wash any area that comes into contact with allergic substances. Learn to recognize poison oak and poison hayden. For irritant contact dermatitis: Wear cotton gloves under rubber gloves for all wet work. Or, use petroleum jelly to the protect the skin. Reapply the petroleum jelly two or three times a day and after washing your hands. Avoid contact with substances that irritate the skin. Use mild soaps. Use hand creams and lotions frequently. Copyright [id number] [facility]. All rights reserved This information is provided by the [facility] and is not intended to replace the medical advice of your doctor or health care provider. Please consult your health care provider for advice about a specific medical condition. For additional written health information, please contact the Health Information Center at the [facility] or toll-free extension [phone] or visit [email or web address] This document was last reviewed on: 2005 index#[id number] Bennie Ballesteros PA-C Department of Pediatrics [facility] [place] documented in this encounter [facility] 05-23-2024 Note HNO ID: [id number] Author: BENNIE BALLESTEROS PA-C Service: ? Author Type: Physician Textile Conversion Manager Type: Progress Notes Filed: 05/23/2024 09:27 Note Text: Sam Rai is an 48 year old male presenting with URI (Sinus drainage, sinus pressure, headache, rash on right leg and wrist and left knee and hands- 1 month for sinus issues, 1 month for rash but getting worse and more irritating) HPI: The patient states that they have had sinus pressure and congestion for the last month. The patient does admit to facial pressure. Admits to cough which is productive of sputum. The patient also reports nasal congestion and sore throat. Denies pain with swallowing/difficulty swallowing. Patient has had yellow rhinorrhea. Mild headache. Denies fevers chills. No dizziness, visual disturbances and or neck stiffness. No chest pain or dyspnea. No vomiting or diarrhea. Patient also complains of a rash noted to his right wrist right lower leg as well as to his left knee that started a month ago. Denies any new food drug environmental allergens. Denies any difficulty swallowing difficulty breathing. Patient states that the rash is pruritic in nature. Patient states he has been using ruyv-mgm-uyqwfif Benadryl cream with little improvement. The patient presents for evaluation. PAST MEDICAL HISTORY Diagnosis Date Acute medial meniscus tear of right knee Anxiety Asthma Contact dermatitis Recurrence not specified. COVID-19 long hauler Depression Diverticulitis GERD (gastroesophageal reflux disease) Insufficiency fracture of tibia Migraines Obesity, morbid, BMI 40.0-49.9 (HCC) Primary osteoarthritis of right knee Restless legs syndrome (RLS) Sinus infection ACTIVE PROBLEM LIST Primary Osteoarthritis of Right Knee Pain in Right Knee Contact Dermatitis Mass On Back Restless Leg Syndrome Migraine With Aura and Without Status Migrainosus, Not Intractable Eczema Obesity, Class III, BMI >= 40 E66.01 Posterior Tibial Tendinitis of Left Leg Sinus Tarsi Syndrome of Left Ankle Obesity, Morbid, Bmi 40.0-49.9 (Hcc) Diverticulosis Chronic Nonintractable Headache Closed Fracture of Bone of Right Foot Intractable Migraine Without Aura and Without Status Migrainosus Seasonal Allergic Rhinitis Due to Pollen History of Shingles Bronchitis, Mucopurulent Recurrent ([facility]) S/P Left Knee Surgery Lis (Obstructive Sleep Apnea) 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 Hair and Dander Allergic Rhinitis Allergic Rhinitis Due to Mold Allergic Rhinitis Due to Dust Mite Dyspnea and Respiratory Abnormalities Pleuritic Chest Pain Moderate Asthma Anxiety and Depression Corneal Subepithelial Haze of Left Eye Refractive Error History of Strabismus Surgery Vitreous Syneresis of Both Eyes Left Flank Pain Malodorous Urine Right Kidney Stone Sinus Infection Left Lower Quadrant Abdominal Pain Nausea and Vomiting Abdominal Pain Acute Left-Sided Low Back Pain Without Sciatica Current Outpatient Medications Medication Sig Dispense Refill albuterol HFA (PROVENTIL HFA, VENTOLIN HFA) 90 mcg/actuation inhaler Inhale 2 Puffs as instructed every 4 hours as needed for wheezing/shortness of breath. 8 g 0 traZODone (DESYREL) 100 mg tablet Take 2 tablets by mouth daily at bedtime. 180 tablet 0 albuterol HFA (PROAIR HFA) 90 mcg/actuation inhaler Inhale 2 Puffs as instructed every 4 hours as needed. 1 Each 3 gabapentin (NEURONTIN) 300 mg capsule Take 4 capsules by mouth as directed for 180 days. 360 capsule 1 amoxicillin-clavulanate potassium (AUGMENTIN) 875-125 mg per tablet Take 1 tablet by mouth two times a day for 7 days. 14 tablet 0 triamcinolone acetonide (KENALOG) 0.5 % cream Apply as directed to affected area twice daily. 30 g 0 benzonatate (TESSALON PERLES) 100 mg capsule Take 1 capsule by mouth three times a day as needed for cough. (Patient not taking: Reported on 05/23/2024) 21 capsule 0 Opkqvxvoldnbxrx-Qwdzcoafe-IX (BROMFED DM) 2-30-10 mg/5 mL syrup Take 5 mL by mouth four times a day as needed. (Patient not taking: Reported on 05/23/2024) 118 mL 0 predniSONE (DELTASONE) 10 mg tablet Day #1 - 6 tablets PO then Day #2 - 5 tablets PO then Day #3 - 4 tablets PO then Day #4 - 3 tablets PO then Day #5 - 2 tablets PO then Day #6 - 1 tablet PO (Patient not taking: Reported on 05/23/2024) 21 tablet 0 SUMAtriptan (IMITREX) 100 mg tablet Take 1 tablet by mouth as needed when migraine headache starts. May repeat in 2 hours if headache continues or returns. Do not exceed 4 tablets in 24 hours. (Patient not taking: Reported on 05/23/2024) 9 tablet 2 FLUoxetine (PROZAC) 10 mg capsule Take 2 capsules by mouth once daily. (Patient not taking: Reported on 05/23/2024) 180 capsule 1 topiramate (TOPAMAX) 100 mg tablet Take one pill at bedtime (Patient not taking: Reported on 05/23/2024) 90 tablet 0 topiramate (TOPAMAX) 50 mg tablet Take 1 tablet by mouth daily at bedtime. To take along wit (more content not included)... [facility] 05-23-2024 History of Present illness Narrative Sam Rai is an 48 year old male presenting with URI (Sinus drainage, sinus pressure, headache, rash on right leg and wrist and left knee and hands- 1 month for sinus issues, 1 month for rash but getting worse and more irritating) HPI: The patient states that they have had sinus pressure and congestion for the last month. The patient does admit to facial pressure. Admits to cough which is productive of sputum. The patient also reports nasal congestion and sore throat. Denies pain with swallowing/difficulty swallowing. Patient has had yellow rhinorrhea. Mild headache. Denies fevers chills. No dizziness, visual disturbances and or neck stiffness. No chest pain or dyspnea. No vomiting or diarrhea. Patient also complains of a rash noted to his right wrist right lower leg as well as to his left knee that started a month ago. Denies any new food drug environmental allergens. Denies any difficulty swallowing difficulty breathing. Patient states that the rash is pruritic in nature. Patient states he has been using dize-ifh-gfrfvey Benadryl cream with little improvement. The patient presents for evaluation. PAST MEDICAL HISTORY Diagnosis Date Acute medial meniscus tear of right knee Anxiety Asthma Contact dermatitis Recurrence not specified. COVID-19 long hauler Depression Diverticulitis GERD (gastroesophageal reflux disease) Insufficiency fracture of tibia Migraines Obesity, morbid, BMI 40.0-49.9 (HCC) Primary osteoarthritis of right knee Restless legs syndrome (RLS) Sinus infection ACTIVE PROBLEM LIST Primary Osteoarthritis of Right Knee Pain in Right Knee Contact Dermatitis Mass On Back Restless Leg Syndrome Migraine With Aura and Without Status Migrainosus, Not Intractable Eczema Obesity, Class III, BMI >= 40 E66.01 Posterior Tibial Tendinitis of Left Leg Sinus Tarsi Syndrome of Left Ankle Obesity, Morbid, Bmi 40.0-49.9 (Hcc) Diverticulosis Chronic Nonintractable Headache Closed Fracture of Bone of Right Foot Intractable Migraine Without Aura and Without Status Migrainosus Seasonal Allergic Rhinitis Due to Pollen History of Shingles Bronchitis, Mucopurulent Recurrent ([facility]) S/P Left Knee Surgery Lis (Obstructive Sleep Apnea) 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 Hair and Dander Allergic Rhinitis Allergic Rhinitis Due to Mold Allergic Rhinitis Due to Dust Mite Dyspnea and Respiratory Abnormalities Pleuritic Chest Pain Moderate Asthma Anxiety and Depression Corneal Subepithelial Haze of Left Eye Refractive Error History of Strabismus Surgery Vitreous Syneresis of Both Eyes Left Flank Pain Malodorous Urine Right Kidney Stone Sinus Infection Left Lower Quadrant Abdominal Pain Nausea and Vomiting Abdominal Pain Acute Left-Sided Low Back Pain Without Sciatica Current Outpatient Medications Medication Sig Dispense Refill albuterol HFA (PROVENTIL HFA, VENTOLIN HFA) 90 mcg/actuation inhaler Inhale 2 Puffs as instructed every 4 hours as needed for wheezing/shortness of breath. 8 g 0 traZODone (DESYREL) 100 mg tablet Take 2 tablets by mouth daily at bedtime. 180 tablet 0 albuterol HFA (PROAIR HFA) 90 mcg/actuation inhaler Inhale 2 Puffs as instructed every 4 hours as needed. 1 Each 3 gabapentin (NEURONTIN) 300 mg capsule Take 4 capsules by mouth as directed for 180 days. 360 capsule 1 amoxicillin-clavulanate potassium (AUGMENTIN) 875-125 mg per tablet Take 1 tablet by mouth two times a day for 7 days. 14 tablet 0 triamcinolone acetonide (KENALOG) 0.5 % cream Apply as directed to affected area twice daily. 30 g 0 benzonatate (TESSALON PERLES) 100 mg capsule Take 1 capsule by mouth three times a day as needed for cough. (Patient not taking: Reported on 05/23/2024) 21 capsule 0 Wrldfsivqhjbfzj-Xlqjhlaah-XH (BROMFED DM) 2-30-10 mg/5 mL syrup Take 5 mL by mouth four times a day as needed. (Patient not taking: Reported on 05/23/2024) 118 mL 0 predniSONE (DELTASONE) 10 mg tablet Day #1 - 6 tablets PO then Day #2 - 5 tablets PO then Day #3 - 4 tablets PO then Day #4 - 3 tablets PO then Day #5 - 2 tablets PO then Day #6 - 1 tablet PO (Patient not taking: Reported on 05/23/2024) 21 tablet 0 SUMAtriptan (IMITREX) 100 mg tablet Take 1 tablet by mouth as needed when migraine headache starts. May repeat in 2 hours if headache continues or returns. Do not exceed 4 tablets in 24 hours. (Patient not taking: Reported on 05/23/2024) 9 tablet 2 FLUoxetine (PROZAC) 10 mg capsule Take 2 capsules by mouth once daily. (Patient not taking: Reported on 05/23/2024) 180 capsule 1 topiramate (TOPAMAX) 100 mg tablet Take one pill at bedtime (Patient not taking: Reported on 05/23/2024) 90 tablet 0 topiramate (TOPAMAX) 50 mg tablet Take 1 tablet by mouth daily at bedtime. To take along with 100 mg to equal 150 mg at bedtime (Patient not taking: Reported on 05/23/2024) 90 tablet 1 indomethacin (INDOCIN) 50 mg capsule Take 1 capsule by mouth three times a day with meals. (Patient not taking: Reported on 05/23/2024) 60 capsule 1 fluticasone (FLONASE) 50 mcg/actuation nasal spray Use 2 Sprays in each nostril daily at bedtime. (Patient not taking: Reported on 05/23/2024) 1 Each 1 metoclopramide HCl (REGLAN) 10 mg tablet Take 1 tablet by mouth three times daily as needed. (Patient not taking: Reported on 05/23/2024) 15 tablet 0 diphenhydrAMINE (BENADRYL) 25 mg capsule Take 1 capsule by mouth three times daily as needed (headache). Use as directed. (Patient not taking: Reported on 05/23/2024) 15 capsule 0 hydrOXYzine HCl (ATARAX) 25 mg tablet TAKE 1 TABLET BY MOUTH THREE TIMES A DAY NEEDED FOR ITCHING/ rash and anxiety. (Patient not taking: Reported on 05/23/2024) 270 tablet 0 polyethylene glycol 3350 (MIRALAX) 17 gram/dose powder Take 17 g by mouth as directed. Dissolve dose in 4 - 8 ounces of liquid and take as directed. (Patient not taking: Reported on 05/23/2024) 289 g 0 docusate sodium (COLACE) 100 mg capsule Take 1 capsule by mouth once daily. (Patient not taking: Reported on 05/23/2024) 30 capsule 0 docusate sodium (COLACE) 100 mg capsule Take 1 capsule by mouth once daily. (Patient not taking: Reported on 05/23/2024) 30 capsule 0 cholestyramine-sucrose (QUESTRAN) 4 gram powder Take 2 g by mouth three times daily with meals. (Patient not taking: Reported on 05/23/2024) 348.6 g 1 alpha lipoic acid-biotin (ALAMAX CR) 600 mg- 450 mcg extended release tablet Take 1 tablet by mouth once daily. (Patient not taking: Reported on 05/23/2024) selenium sulfide 2.5 % lotn Apply to eyebrows and davila region twice a week. allow to remain on for 5-10 minutes and rinse. (Patient not taking: Reported on 05/23/2024) 120 mL 1 Melatonin-SR (Klaire/Prothera) Take 1 capsule (3 mg) one hour before bedtime (Patient not taking: Reported on 05/23/2024) 1 Bottle Buffered Ascorbic Acid capsules (Pure Encapsulations) - Vitamin C 2 capsules twice a day with or between meals (Patient not taking: Reported on 05/23/2024) 0 Zinc [place] ([employer]) Take 1 capsule by mouth daily with food. (Patient not taking: Reported on 05/23/2024) Vitamin D3 5000 International Units (Pure Encapsulations) Take 1 capsule by mouth daily with food. (Patient not taking: Reported on 05/23/2024) 1 Bottle 1 EPINEPHrine (EPIPEN 2-ANDRE) 0.3 mg/0.3 mL auto-injector Inject 0.3 mL intramuscularly as needed (Inject in thigh as needed for anaphylaxis and call 911). GENERIC OKAY (Patient not taking: Reported on 05/23/2024) 2 Each 3 No current facility-administered medications for this visit. Social History Tobacco Use Smoking status: Never Smokeless tobacco: Never Vaping Use Vaping Use: Never used Substance Use Topics Alcohol use: Yes Comment: social Drug use: Never Comment: No reported history. Alcohol Use: Yes (social) Tobacco Use: Never FAMILY HISTORY Problem Relation Age of Onset Stroke Mother Lipids Mother Hypertension Mother Obesity Mother Asthma Mother COPD Mother Lipids Father Hypertension Father Alcohol/Drug Father Restless legs syndrome No Family History Obstructive Sleep Apnea No Family History ROS: Unless otherwise stated in this report the patient's positive and negative responses for review of systems for constitutional, eyes, ENT, cardiovascular, respiratory, gastrointestinal, neurological, , musculoskeletal, and integument systems and related systems to the presenting problem are either stated in the history of present illness or were not pertinent or were negative for the symptoms and/or complaints related to the presenting medical problem. BP 128/90 Pulse 75 Temp 97.7 Resp 16 Wt 253 lb 8.5 oz (115.0kg) SpO2 100% Physical Exam: Const: Appears healthy and well developed. No signs of acute distress present. Vitals reviewed per triage. Head/Face: Normocephalic, atraumatic. Facies is symmetric. Tenderness is noted over the maxillary sinuses. Eyes: PERRL. ENMT: Tympanic membranes are pearly holly with good light reflex bilaterally. Nares have yellow rhinorrhea Buccal mucosa is moist. No erythema in the posterior pharynx. Thick purulent PND is noted Neck: Supple and symmetric. Palpation reveals no adenopathy. No meningeal signs.Trachea midline. Resp: Lungs are clear bilaterally in all lung chinchilla. Chest expansion is symmetrical no accessory muscle use. CV: S1 is normal. S2 is normal . No murmurs rubs or cicksExtremities: Peripheral circulation is grossly normal. Musculo: Patient moves extremities without pain or limitation. Skin: Skin is warm and dry. Patient does have a small area of erythematous maculopapular rash noted to the dorsal aspect of his right wrist as well as to his right anterior tib-fib area as well as a small area to the patellar aspect of his left knee on exam. No other areas of rash were noted. No vesicles pustules signs and symptoms of secondary infection. No petechiae. No target lesions. Neuro: Alert and oriented x3. Speech is articulate and fluent. Psych: Mood/Affect: Patient's mood and affect is appropriate to situation. ALTAGRACIA Vargas is a 48-year-old male who presents to [facility] with sinus symptoms for the last month as well as a rash to his right wrist right lower leg and left knee for the last month as well. Clinical exam consistent with acute maxillary sinusitis. Patient was treated with Augmentin take as directed instructed on [id number] cough decongestant. Patient was also placed on triamcinolone cream apply as directed for a nonspecific dermatitis. Patient was instructed follow-up with PCP for recheck in 7 days. ER warning signs given. Patient is well-appearing nontoxic nonhypoxic and appropriate for outpatient treatment and management at the time of evaluation. Patient's VSS, medication list, allergies, past medical history have been reviewed. Discussed above with the patient, using shared medical decision, patient is in agreement with treatment diagnosis and plan. Patient will be treated as documented above. Follow-up as instructed. If have any new or worsening symptoms, advise ED immediately for reevaluation. Sam was seen today for uri. Diagnoses and all orders for this visit: Acute non-recurrent maxillary sinusitis - amoxicillin-clavulanate potassium (AUGMENTIN) 875-125 mg per tablet; Take 1 tablet by mouth two times a day for 7 days. Dermatitis - triamcinolone acetonide (KENALOG) 0.5 % cream; Apply as directed to affected area twice daily. Bennie Ballesteros PA-C Return for FU with PCP in 7 days. ER warning signs given!. documented in this encounter [facility] 05-22-2024 Note HNO ID: [id number] Author: GABRIEL TYLER PA-C Service: ? Author Type: Physician Textile Conversion Manager Type: Progress Notes Filed: 05/22/2024 19:41 Note Text: Pt looking for refil of gabapentin. Advisided in person visit. No charge Gabriel Tyler PA-C [facility] 05-22-2024 History of Present illness Narrative Pt looking for refil of gabapentin. Advisided in person visit. No charge Gabriel Tyler PA-C documented in this encounter [facility] 04-16-2024 Instructions Елена Bustillos APRN.PIG MACHINE CRANE OPERATOR - 04/16/2024 12:00 PM EDT How to Manage Common Symptoms Associated with COVID for Adults Fever- Fever is a temperature over 100.4 F and can occur when the body is fighting an infection. To help treat a fever: Drink plenty of fluids and stay well hydrated. Eat small amounts of easy to digest food. Rest. Your body needs rest to recover, but getting up and moving around the house frequently is a good idea. You should try to continue doing your normal daily activities (bathing, toileting, grooming, cooking), though you will probably feel tired, and need to rest often. Avoid any heavy activity or exercise, as this will increase your body temperature. Dress in light clothing and stay covered in a light sheet. Keep the room temperature cool. Take a slightly warm (not cold or cool) bath, or apply damp washcloths to the forehead and wrists. Cough- Cough is a common symptom associated with COVID and can be bothersome. To help treat a cough: Stay well hydrated. Try warm water or tea with lemon and/or honey to help soothe the cough. Use a humidifier to add moisture to the air. Try a product with menthol, like a cough drop or a rub for your chest such as Vicks, which can help reduce cough. Try cough drops. Avoid smoking and other strong odors or perfumes. Try breathing exercises to keep your lungs open and clear. Take a big deep breath through your nose and hold for 5 seconds before slowly releasing. Repeat frequently, while you are awake. Congestion- Runny nose or nasal congestion can occur with COVID. Treatment can help relieve symptoms: Try OTC nasal saline spray, or nasal saline rinse to relieve mucus congestion. Nasal strips can help keep nasal passages open, to increase airflow. Elevating your head with an extra pillow in bed can help reduce congestion. Using a humidifier can increase moisture in the air, and make breathing easier. Sore Throat- Another common symptom with COVID, can be managed at home by: Stay well hydrated. Gargle with salt water - mix teaspoon salt with 1 cup of warm water and gargle. This helps to loosen mucus in the back of the throat and may reduce discomfort. Try ice chips, popsicles or lozenges to soothe the throat. Nausea/Vomiting/Diarrhea- These are common symptoms, and staying hydrated is most important. If you are nauseous or vomiting, start with small sips of water every 10-15 minutes and increase as tolerated. You can try sucking an ice cube too. If tolerating, you can try pedialyte or Gatorade, or flat sprite or demond-connor. Start slowly and increase as you are able to. Instead of meals, try smaller, more frequent snacks. Try eating bland foods like crackers, toast, rice, and applesauce. Avoid spicy, greasy or fried foods and dairy containing foods. Even if you aren't feeling hungry due to lack of smell or taste, it is important to try to take in some food when you are able. After drinking and eating, rest in an upright position for up to two hours as needed to help decrease nauseous feelings. Try closing your eyes, avoid moving and watching TV. Avoid strong odors that can make you feel more nauseated. When to seek emergency medical attention Look for emergency warning signs for COVID-19. If having any of these symptoms, seek emergency medical care immediately: Trouble breathing Persistent pain or pressure in the chest New confusion Inability to wake or stay awake Bluish lips or face *This list is not all possible symptoms. Please call your medical provider for any other symptoms that are severe or concerning to you. documented in this encounter [facility] 04-16-2024 Note HNO ID: [id number] Author: ЕЛЕНА BUSTILLOS APRN.MARILEE Service: ? Author Type: Nurse Practitioner Type: Progress Notes Filed: 04/16/2024 12:05 Note Text: Telemedicine Evaluation for COVID-19 Infection MyChart Zoom Video Visit was used for evaluation of this patient. I have communicated my name and active licensure. The patient's identity and physical location were verified at the time of this visit. Either the patient or their legal patient service representative has been informed of the risks and benefits of -- and alternatives to -- treatment through a remote evaluation and consents to proceed with the evaluation remotely. SUBJECTIVE Sam Rai is a 48 year old male who presents with 4 days of symptoms that are stable. Patient was seen in the ED and + for COVID. Requesting a refill of tessalon Symptoms include: Fever (?100.4F): No or Chills: Yes Cough: Yes Shortness of breath: No or Difficulty breathing: No Fatigue: Yes Muscle aches: Yes Headache: Yes New loss of smell or taste: No Sore throat: Yes Nasal congestion: Yes or Rhinorrhea: Yes Nausea: No or Vomiting: Yes Diarrhea: Yes OTC meds/remedies that patient has tried: tessalon, zofran High risk category assessment Anxiety Exposures: Sick contacts? No Family or close contacts with confirmed/probable COVID-19 in last 14 days? No He reports that he has never smoked. He has never used smokeless tobacco. OBJECTIVE VIDEO EXAM (if available) GENERAL: well appearing, alert, in no acute distress HEENT: no conjunctival injection, pupils equal, moist mucous membranes, oropharynx clear without erythema, sinuses tender to self-palpation, and palpable cervical adenopathy PULMONARY: breathing comfortably on room air , no coughing noted, and no wheezing noted ASSESSMENT/PLAN (U07.1) COVID-19 virus infection (primary encounter diagnosis) - Tessalon as needed - Discussed symptom monitoring and supportive care - Red flag symptoms requiring follow up discussed [facility] 04-16-2024 History of Present illness Narrative Telemedicine Evaluation for COVID-19 Infection MyChart Zoom Video Visit was used for evaluation of this patient. I have communicated my name and active licensure. The patient's identity and physical location were verified at the time of this visit. Either the patient or their legal patient service representative has been informed of the risks and benefits of -- and alternatives to -- treatment through a remote evaluation and consents to proceed with the evaluation remotely. SUBJECTIVE Sam Rai is a 48 year old male who presents with 4 days of symptoms that are stable. Patient was seen in the ED and + for COVID. Requesting a refill of tessalon Symptoms include: Fever (?100.4F): No or Chills: Yes Cough: Yes Shortness of breath: No or Difficulty breathing: No Fatigue: Yes Muscle aches: Yes Headache: Yes New loss of smell or taste: No Sore throat: Yes Nasal congestion: Yes or Rhinorrhea: Yes Nausea: No or Vomiting: Yes Diarrhea: Yes OTC meds/remedies that patient has tried: tessalon, zofran High risk category assessment Anxiety Exposures: Sick contacts? No Family or close contacts with confirmed/probable COVID-19 in last 14 days? No He reports that he has never smoked. He has never used smokeless tobacco. OBJECTIVE VIDEO EXAM (if available) GENERAL: well appearing, alert, in no acute distress HEENT: no conjunctival injection, pupils equal, moist mucous membranes, oropharynx clear without erythema, sinuses tender to self-palpation, and palpable cervical adenopathy PULMONARY: breathing comfortably on room air , no coughing noted, and no wheezing noted ASSESSMENT/PLAN (U07.1) COVID-19 virus infection (primary encounter diagnosis) - Tessalon as needed - Discussed symptom monitoring and supportive care - Red flag symptoms requiring follow up discussed documented in this encounter [facility] 03-09-2024 Instructions Elmira Swartz APRN.CNP - 03/09/2024 9:37 AM EDT UPPER RESPIRATORY INFECTIONS Most cases are caused by viruses and most cases are mild, temporary, and harmless. Symptoms can last 2 to 3 weeks and can include: nasal congestion, sore throat, coughing, muscles aches, headaches, nausea, diarrhea, fatigue and fever. 1. Drink plenty of fluids. 2. Get lots of rest. 3. Avoid dehydrants such as caffeine and alcohol. 4. Nasal saline is an effective decongestant and be used frequently throughout the day. 5. To loosen phlegm and help coughing, drink plenty of fluids and using a humidifier. 6. For sore throats, it is ok to use cough drops, throat sprays, or gargling warm salt water. 7. Always cover your mouth when you cough or sneeze, and wash your hands frequently. Avoid crowded areas like shopping centers, movies while you are sick so you don't turkey picker a different virus, or infect others. 8. Avoid exposure to cigarettes or fumes. 9. Avoid irritants such as potpourri, dust, perfumes, scented candles and scented sprays 10. Air conditioning is an effective allergen and irritant avoidance strategy in the spring, summer and fall. 11. Honey is an effective cough suppressant. Try one tsp two to three times per day. 12. Mucinex every 12 hours with a full 10-12 ounces of water The below information is from [email or web address]: Antibiotics will rarely help an upper respiratory infections. Antibiotics lead to more resistant infections that are harder to treat. There is little to no benefit to taking antibiotics for most acute upper respiratory tract infections. documented in this encounter [facility] 03-09-2024 History of Present illness Narrative This note was created using ViewCastriter. Subjective Sam Rai is a 48 year old male. HPI by patient: Sam is a 48 year old presenting to the office with the complaint of "sinus infection" but has been sick since december when he was seen in ER for PNA. He was given levaquin. Also has had antibiotics and steroids for sinuses and ear infections as well as rash. Started approximately off and on for months. Cannot see PCP because he does not have insurance at the moment and has not applied for govt ins. He has been off and really sick since he had covid and has not been able to recover. Associated symptoms include NICE, sinus congestion, chest congestion, sore throat, sinus pain and pressure Denies any other concerns Covid Immunization Dates Overdue - Covid-19 Vaccine () Overdue since 07/02/2023 09/12/2021 Imm Admin: COVID-19 original vaccine, age 12+ yr, monovalent (PFIZER-BIONTECH - PURPLE TOP) 02/12/2021 Imm Admin: COVID-19 original vaccine, age 12+ yr, monovalent (PFIZER-BIONTECH - PURPLE TOP) 01/22/2021 Imm Admin: COVID-19 original vaccine, age 12+ yr, monovalent (PFIZER-BIONTECH - PURPLE TOP) Sick contacts: no Smoking history/second hand smoke: no OTC ttylenol No antibiotic use in the last 60 days. ALLERGIES Bactrim [Sulfametho* Hives Erythromycin Base Hives, Shortness of Breath Sulfa (Sulfonamide * Unknown Family History Reviewed Including Cardiac Diseases, Psychiatric Diseases, & Substance Abuse Problem: Stroke Relation: Mother Age of Onset: (Not Specified) Problem: Lipids Relation: Mother Age of Onset: (Not Specified) Problem: Hypertension Relation: Mother Age of Onset: (Not Specified) Problem: Obesity Relation: Mother Age of Onset: (Not Specified) Problem: Asthma Relation: Mother Age of Onset: (Not Specified) Problem: COPD Relation: Mother Age of Onset: (Not Specified) Problem: Lipids Relation: Father Age of Onset: (Not Specified) Problem: Hypertension Relation: Father Age of Onset: (Not Specified) Problem: Alcohol/Drug Relation: Father Age of Onset: (Not Specified) Problem: Restless legs syndrome Relation: No Family History Age of Onset: (Not Specified) Problem: Obstructive Sleep Apnea Relation: No Family History Age of Onset: (Not Specified) Social History Tobacco Use Smoking status: Never Smokeless tobacco: Never Vaping Use Vaping Use: Never used Alcohol use: Yes Comment: social Drug use: Never Comment: No reported history. Review of Systems Constitutional: Negative for chills and fever. HENT: Positive for congestion, postnasal drip, rhinorrhea, sinus pressure and sore throat. Negative for ear pain. Respiratory: Positive for cough. Cardiovascular: Negative for chest pain. Allergic/Immunologic: Negative for immunocompromised state. Neurological: Positive for headaches. Hematological: Negative for adenopathy. Objective BP 112/68 (BP Site: Right Arm, BP Position: Sitting, BP Cuff Size: Large Adult) Pulse 73 Temp 36.2 C (97.2 F) (Right Tympanic) Resp 18 Ht 170.2 cm (5' 7") Wt 121.5 kg (267 lb 13.7 oz) SpO2 99% BMI 41.95 kg/m Physical Exam Vitals and nursing note reviewed. Constitutional: Appearance: He is well-developed. HENT: Right Ear: Tympanic membrane and ear canal normal. Left Ear: Tympanic membrane and ear canal normal. Nose: Congestion and rhinorrhea present. Mouth/Throat: Pharynx: Uvula midline. No oropharyngeal exudate or posterior oropharyngeal erythema. Cardiovascular: Rate and Rhythm: Normal rate and regular rhythm. Heart sounds: Normal heart sounds. Pulmonary: Effort: Pulmonary effort is normal. No respiratory distress. Breath sounds: Normal breath sounds. No stridor. No wheezing, rhonchi or rales. Chest: Chest wall: No tenderness. Lymphadenopathy: Cervical: No cervical adenopathy. Skin: General: Skin is warm and dry. Neurological: Mental Status: He is alert and oriented to person, place, and time. Assessment and Plan ASSESSMENT/PLAN: 1. Viral URI with cough - ICD9: 465.9, ICD10: J06.9 - Discussed viral etiology and rationale for treatment. - Symptomatic treatment with prn analgesia - Supportive care with fluids and rest - ALBUTEROL SULFATE HFA 90 MCG/ACTUATION AEROSOL INHALER - PREDNISONE 10 MG TABLET - [id number] 2 MG-30 MG-10 MG/5 ML ORAL SYRUP Elmira Swartz APRN.CNP Medical Decision Making: Problems: Moderate: New problem with uncertain prognosis Data: Unique source(s) for external note(s) reviewed: 1 Risk: Moderate: Drug management Medical Decision Making Level: 4 - Moderate documented in this encounter [facility] 02-25-2024 Instructions Brenda Swain PA-C - 02/25/2024 12:37 PM EDT NONSPECIFIC RASH: Our exam shows you have a rash which has no clear cause. Rashes can result from infections, allergies, or irritation of the skin by chemicals or other environmental factors. Rashes can also result from scratching or rubbing the skin too much to relieve itching. Further medical examination may be needed to identify the specific cause and proper treatment of your skin rash. You should treat your rash as recommended by your doctor. If you have itching, you should avoid scratching as much as possible, as this further damages the skin. Ask your doctor or pharmacist if you have any questions about what topical medicines may help relieve your symptoms. Call your doctor right away if your rash is not better in 2-3 days, if it worsens, or if there are signs of infection (increased pain, redness, drainage or pus). documented in this encounter [facility] 02-25-2024 History of Present illness Narrative Subjective Sam Rai is a 48 year old male with a past medical history of migraine, asthma, nephrolithiasis, anxiety, and depression who presents [facility] today for evaluation of multiple complaints. He endorses a rash on his right leg. He states that he has had the rash for several months. His doctors were previously treating him for eczema but he states that none of the treatments were working. He states that he lost insurance and started using jemb-kku-kibuwyz antifungal creams which have helped greatly. He also endorses having pneumonia about 3 weeks ago. He was treated with Levaquin. He states that his symptoms improved but he still has cough and congestion as well as left ear pain. Review of Systems Constitutional: Negative for chills, diaphoresis and fever. HENT: Positive for congestion and ear pain (left). Eyes: Negative for discharge and redness. Respiratory: Positive for cough. Negative for shortness of breath. Skin: Positive for rash (right leg). Negative for color change. All other systems reviewed and are negative. Objective There were no vitals taken for this visit. Physical Exam Vitals reviewed. Constitutional: General: He is not in acute distress. Appearance: Normal appearance. He is normal weight. He is not ill-appearing or toxic-appearing. Comments: The patient appears to be non-toxic, in no acute distress, and resting comfortably on the table. HENT: Head: Normocephalic and atraumatic. Right Ear: Tympanic membrane, ear canal and external ear normal. Left Ear: Tympanic membrane, ear canal and external ear normal. Nose: Congestion present. Eyes: Extraocular Movements: Extraocular movements intact. Cardiovascular: Rate and Rhythm: Normal rate and regular rhythm. Heart sounds: Normal heart sounds. No murmur heard. No friction rub. No gallop. Pulmonary: Effort: Pulmonary effort is normal. No respiratory distress. Breath sounds: Normal breath sounds. No wheezing. Musculoskeletal: General: Normal range of motion. Cervical back: Normal range of motion. Skin: General: Skin is warm and dry. Findings: Rash present. No erythema. Rash is macular (erythematous, with some scabbing). Neurological: General: No focal deficit present. Mental Status: He is alert and oriented to person, place, and time. Mental status is at baseline. Psychiatric: Mood and Affect: Mood normal. Behavior: Behavior normal. Thought Content: Thought content normal. Assessment and Plan Examination of the right leg reveals an erythematous macular rash with some scabbing. As patient states that his symptoms have been improving with antifungal cream, I will continue to treat him with antifungals. Suspect patient's cough and congestion are from recent pneumonia. Patient will be treated with prednisone. Patient counseled regarding suspected diagnosis and given prescriptions for Lotrisone cream and prednisone. Advised to follow-up with primary care as needed for any new or worsening symptoms. ASSESSMENT/PLAN: 1. Rash - ICD9: 782.1, ICD10: R21 (primary diagnosis) - CLOTRIMAZOLE-BETAMETHASONE 1 %-0.05 % TOPICAL CREAM 2. Nasal congestion - ICD9: 478.19, ICD10: R09.81 - PREDNISONE 10 MG TABLET 3. Left ear pain - ICD9: 388.70, ICD10: H92.02 - PREDNISONE 10 MG TABLET Medical Decision Making: Problems: Low: Acute, uncomplicated illness or injury Risk: Minimal: Minimal risk from testing/treatment Moderate: Drug management Medical Decision Making Level: 3 - Low I spent a total of 20 minutes on the date of the service which included preparing to see the patient, [id number] patient care, completing clinical documentation, performing a medically appropriate examination, counseling and educating the patient/family/caregiver, and ordering medications, tests, or procedures. Brenda Swain PA-C documented in this encounter [facility] 12-23-2023 Miscellaneous Notes Pharmacy called requesting the following refill Refill(s) Requested: Requested Prescriptions Pending Prescriptions Disp Refills traZODone (DESYREL) 100 mg tablet 180 tablet 0 Sig: Take 2 tablets by mouth daily at bedtime. ALLERGIES Allergen Reactions Bactrim [Sulfametho* Hives Erythromycin Base Hives, Shortness of Breath Sulfa (Sulfonamide * Unknown (home) [phone] (cell) Last Office Visit Date: 08/17/2023 Last [facility] Visit: 02/23/2023 Future Appointment: Visit date not found The patients preferred pharmacy has been captured for this encounter? yes Request is for script(s) to be escript to pharmacy. Brandon Belle Ma documented in this encounter [facility] 12-23-2023 Instructions Brenda Swain PA-C - 12/23/2023 1:11 PM EST OTITIS EXTERNA OVERVIEW -- External otitis is a condition that occurs when the ear canal becomes irritated. The ear canal is the part of the ear that leads from the outer ear to the ear drum. External otitis can develop as a result of an infection, allergy, or skin problem. "Swimmer's ear" is the name for external otitis that occurs in a person who swims frequently. External otitis is different from otitis media (middle ear infections). When a person says that they have an ear infection, they usually mean that they have otitis media. This article will discuss external otitis that is caused by an infection, as well as ways to prevent future episodes of external otitis. More detailed information is available by subscription. EXTERNAL OTITIS RISK FACTORS Several factors can increase your risk of developing external otitis. ?Cleaning the ear canal removes ear wax. Ear wax serves to protect the ears from water, bacteria, and injury. Excessive cleaning or scratching can injure the skin, potentially leading to infection. ?Swimming on a regular basis removes some of the ear wax, allowing water to soften the skin. Bacteria, which normally live in the ear canal, can then enter the skin more easily. ?Wearing devices that block the ear canals, such as hearing aids, headphones, or ear plugs, can increase the risk of external otitis (if worn frequently) by injuring the skin. EXTERNAL OTITIS SYMPTOMS The most common symptoms of external otitis include: ?Pain in the outer ear, especially when the ear is pulled or moved ?Itchiness of the ear ?Fluid or pus leaking from the ear ?Difficulty hearing clearly EXTERNAL OTITIS DIAGNOSIS If you think that you or your child could have external otitis, you should see a health care provider. Your provider will examine the outside and inside of your ear to confirm the diagnosis. EXTERNAL OTITIS TREATMENT Treatment of external otitis aims to reduce pain and eliminate the infection. Most people with external otitis can be treated at home. If your infection is severe or your eardrum is ruptured, you will be referred to an ear, nose, and throat specialist (an investment banking associate) for an examination and treatment. In some cases, your health care provider will flush out your ear with water and hydrogen peroxide before you begin treatment; this speeds healing by removing skin cells and excess ear wax. Ear drops -- Ear drops are usually prescribed to reduce pain and swelling caused by external otitis. It is important to apply the ear drops correctly so that they reach the ear canal: ?Lie on your side or tilt your head towards the opposite shoulder. ?Place the ear drops in the ear canal. ?Lie on your side for [address] a cotton ball in the ear canal for 20 minutes. ?Finish the entire course of treatment, even if you begin to feel better within a few days. You should begin to feel better within 36 to 48 hours of starting treatment. If your pain worsens or does not improve within this time period, call your health care provider. Pain medication -- If you have bothersome ear pain, you can take a non-prescription pain medication. Avoid getting ears wet -- During treatment, you should avoid getting the inside of your ears wet. While showering, you can place a cotton ball coated with petroleum jelly in the ear. However, you should not swim for 7 to 10 days after starting treatment. Avoid wearing hearing aids and in-ear headphones until pain improves. EXTERNAL OTITIS PREVENTION The old saying, "Don't put anything smaller than your elbow in your ear" to clean the ear is true. The ear is self-cleaning; fingers, towels, cotton-tipped applicators, and other devices should not be used to clean the inside of the ears. If you feel that you need to clean excessive wax from your ears, talk to your health care provider first. They may want to examine your ears to see if the ear wax is excessive. It is normal to have some ear wax (also called cerumen). If you have an excessive amount of ear wax, talk to your health care provider about safe ways to clean your ears. If you swim frequently, experts recommend the following tips to reduce the chance of developing external otitis. ?Shake your ears dry after swimming. ?Blow dry your ears on a low setting, holding the dryer 12 inches away. ?Use ear drops after swimming to prevent ear infections; these are available at most pharmacies without a prescription. ?Consider wearing ear plugs made for swimming. Otitis Media An ear infection is also called otitis media. Blocked or swollen eustachian tubes can cause an infection. Eustachian tubes connect the middle ear to the back of the nose and throat. They drain fluid from the middle ear. You may have a buildup of fluid in your ear. Germs build up in the fluid and infection develops. Medicines: You may need any of the following: Acetaminophen decreases pain and fever. It is available without a doctor's order. Ask how much to take and how often to take it. Follow directions. Read the labels of all other medicines you are using to see if they also contain acetaminophen, or ask your doctor or pharmacist. Acetaminophen can cause liver damage if not taken correctly. Do not use more than 4 grams (4,000 milligrams) total of acetaminophen in one day. NSAIDs , such as ibuprofen, help decrease swelling, pain, and fever. This medicine is available with or without a doctor's order. NSAIDs can cause stomach bleeding or kidney problems in certain people. If you take blood thinner medicine, always ask your healthcare provider if NSAIDs are safe for you. Always read the medicine label and follow directions. Ear drops may contain medicine to decrease pain and inflammation. Antibiotics help treat a bacterial infection. Take your medicine as directed. Contact your healthcare provider if you think your medicine is not helping or if you have side effects. Tell him or her if you are allergic to any medicine. Keep a list of the medicines, vitamins, and herbs you take. Include the amounts, and when and why you take them. Bring the list or the pill bottles to follow-up visits. Carry your medicine list with you in case of an emergency. Self-care: Apply heat on your ear for 15 to 20 minutes, 3 to 4 times a day or as directed. You can apply heat with an electric heating pad, hot water bottle, or warm compress. Always put a cloth between your skin and the heat pack to prevent velez. Heat helps decrease pain. Apply ice on your ear for 15 to 20 minutes, 3 to 4 times a day for 2 days or as directed. Use an ice pack, or put crushed ice in a plastic bag. Cover it with a towel before you apply it to your ear. Ice decreases swelling and pain. Call your doctor if: You see blood or pus draining from your ear. Your ear pain gets worse or does not go away, even after treatment. The outside of your ear is red or swollen. You are vomiting or have diarrhea. You have questions or concerns about your condition or care. Go to the emergency department if: You have clear fluid coming from your ear. You have a stiff neck, headache, and a fever. documented in this encounter [facility] 12-23-2023 History of Present illness Narrative Subjective Sam Rai is a 48 year old male with a past medical history of migraine and asthma who presents [facility] today for evaluation of left ear pain and fullness for the past couple of days. He states that he did have some nasal congestion and cough but that resolved. He denies having any fevers. Review of Systems HENT: Positive for ear pain (left). Negative for congestion. Respiratory: Negative for cough. Skin: Negative for rash and wound. All other systems reviewed and are negative. Objective There were no vitals taken for this visit. Physical Exam Constitutional: General: He is not in acute distress. Appearance: Normal appearance. He is normal weight. He is not ill-appearing or toxic-appearing. Comments: The patient appears to be non-toxic, in no acute distress, and resting comfortably on the table. HENT: Head: Normocephalic and atraumatic. Right Ear: Hearing, tympanic membrane, ear canal and external ear normal. Left Ear: Drainage, swelling and tenderness present. Tympanic membrane is injected and erythematous. Eyes: Extraocular Movements: Extraocular movements intact. Cardiovascular: Rate and Rhythm: Normal rate and regular rhythm. Heart sounds: Normal heart sounds. No murmur heard. No friction rub. No gallop. Pulmonary: Effort: Pulmonary effort is normal. No respiratory distress. Breath sounds: Normal breath sounds. No wheezing. Musculoskeletal: General: Normal range of motion. Cervical back: Normal range of motion. Skin: General: Skin is warm and dry. Findings: No erythema or rash. Neurological: General: No focal deficit present. Mental Status: He is alert and oriented to person, place, and time. Mental status is at baseline. Psychiatric: Mood and Affect: Mood normal. Behavior: Behavior normal. Thought Content: Thought content normal. Assessment and Plan Examination of the left ear reveals erythema, swelling, and tenderness to the external canal as well as erythema and injection of the tympanic membrane consistent with acute otitis media and acute otitis externa. Patient counseled regarding suspected diagnosis and given prescriptions for amoxicillin and Cortisporin otic solution. Advised to follow-up with his primary care provider as needed for any new or worsening symptoms. ASSESSMENT/PLAN: 1. Acute otitis media, left - ICD9: 382.9, ICD10: H66.92 (primary diagnosis) - AMOXICILLIN 875 MG TABLET 2. Acute otitis externa of left ear, unspecified type - ICD9: 380.10, ICD10: H60.502 - NRQYCKHS-EEPDNRLOC-TJGMBKJOY 3.5 MG-10,000 UNIT/ML-1 % EAR DROPS,SUSP 3. Left ear pain - ICD9: 388.70, ICD10: H92.02 Medical Decision Making: Problems: Low: Acute, uncomplicated illness or injury Risk: Minimal: Minimal risk from testing/treatment Moderate: Drug management Medical Decision Making Level: 3 - Low I spent a total of 20 minutes on the date of the service which included preparing to see the patient, frtp-ga-[id number] patient care, completing clinical documentation, performing a medically appropriate examination, counseling and educating the patient/family/caregiver, and ordering medications, tests, or procedures. Brenda Swain PA-C documented in this encounter [facility] 09-21-2023 Miscellaneous Notes Pharmacy called requesting the following refill Refill(s) Requested: Requested Prescriptions Pending Prescriptions Disp Refills topiramate (TOPAMAX) 100 mg tablet 90 tablet 1 Sig: Take one pill at bedtime topiramate (TOPAMAX) 50 mg tablet 90 tablet 1 Sig: Take 1 tablet by mouth daily at bedtime. To take along with 100 mg to equal 150 mg at bedtime ALLERGIES Allergen Reactions Bactrim [Sulfametho* Hives Erythromycin Base Hives, Shortness of Breath Sulfa (Sulfonamide * Unknown (home) [phone] (cell) Last Office Visit Date: 08/17/2023 Last [facility] Visit: 02/23/2023 Future Appointment: 09/20/2023 The patients preferred pharmacy has been captured for this encounter? yes Request is for script(s) to be escript to pharmacy. Brandon Belle Ma documented in this encounter [facility] 08-17-2023 Miscellaneous Notes Made appointment with Kristopher Toussaint ----- Message from Ruby Petit sent at 08/17/2023 11:47 AM EDT ----- Regarding: Orthopedics / [facility] Knee: Pain / Est. Pt. Non RFV Reason Subject Line Format: Orthopedics / [Provider Name or "Open & Body Part"] / [Issue] Patient has been identified by name and Date of (Y/N): y Patient: Sam Rai Date of : 1975 Previous Provider Seen: [facility] Body Part(s) Identified: left knee Diagnosis/Reason For Visit: left knee pain- wanting to see tyrell again Reason for the call/escalation: transferring back to [facility]- patient would like next available If reason for call/escalation is discharge from ED/ER or Hospital, which facility was the patient seen at: n/a Was an appointment scheduled (Y/N): n/a Person calling if other than patient: n/a Return call to if other than patient: n/a Best contact number: [phone] Thank you, Ruby Petit August 17, 2023 11:48 AM documented in this encounter [facility] 08-17-2023 History of Present illness Narrative Images from the original note were not included. [facility] [address] [place] [address] Date of Evaluation: 08/17/2023 Patient Name: Sam Rai : 1975 Chief Complaint: Patient presents with: Illness: Sore throat, coughing, ears ache, wheezing and popping in lungs Nursing Intake: There are no exam notes on file for this visit. Subjective HPI Mr. Rai is a 47 year old male who presents for: Reports with continued symptoms of cough, congestion, sinus pressure and pain with sinus congestion. He reports cough and feels like he is wheezing. Has completed two rounds of Augmentin antibiotic therapy with minimal relief. Review of Systems Constitutional: Negative for activity change, appetite change, chills and fever. HENT: Positive for congestion, ear pain, rhinorrhea, sinus pressure, sinus pain and sore throat. Negative for hearing loss and trouble swallowing. Eyes: Negative for visual disturbance. Respiratory: Positive for cough and wheezing. Negative for chest tightness and shortness of breath. Cardiovascular: Negative for chest pain, palpitations and leg swelling. Gastrointestinal: Negative for abdominal pain, diarrhea, nausea and vomiting. Genitourinary: Negative for dysuria and frequency. Musculoskeletal: Negative for arthralgias and myalgias. Skin: Negative for pallor, rash and wound. Neurological: Negative for dizziness, light-headedness, numbness and headaches. Psychiatric/Behavioral: Negative for behavioral problems, confusion, hallucinations and suicidal ideas. PAST MEDICAL HISTORY Diagnosis Date Acute medial meniscus tear of right knee Anxiety Asthma Contact dermatitis Recurrence not specified. COVID-19 long hauler Depression Diverticulitis GERD (gastroesophageal reflux disease) Insufficiency fracture of tibia Migraines Obesity, morbid, BMI 40.0-49.9 ([facility]) Primary osteoarthritis of right knee Restless legs syndrome (RLS) Sinus infection PAST SURGICAL HISTORY Procedure Laterality Date CARPAL TUNNEL Right CHOLECYSTECTOMY HX in 1999 KNEE SURGERY HX Right scope and tibial transfer ORTHOPEDICS SURGERY HX Right Right Knee PAST SURGICAL HISTORY OF teeth removed TONSILLECTOMY HX FAMILY HISTORY Problem Relation Age of Onset Stroke Mother Lipids Mother Hypertension Mother Obesity Mother Asthma Mother COPD Mother Lipids Father Hypertension Father Alcohol/Drug Father Restless legs syndrome No Family History Obstructive Sleep Apnea No Family History Social History Tobacco Use Smoking status: Never Smokeless tobacco: Never Vaping Use Vaping Use: Never used Substance Use Topics Alcohol use: Yes Comment: < 1/week Drug use: No Comment: No reported history. Current Outpatient Medications Medication Sig gabapentin (NEURONTIN) 300 mg capsule Take 4 capsules by mouth as directed for 180 days. fluocinolone (SYNALAR) 0.025 % ointment Apply to affected area two times a day. indomethacin (INDOCIN) 50 mg capsule Take 1 capsule by mouth three times a day with meals. fluticasone (FLONASE) 50 mcg/actuation nasal spray Use 2 Sprays in each nostril daily at bedtime. metoclopramide HCl (REGLAN) 10 mg tablet Take 1 tablet by mouth three times daily as needed. diphenhydrAMINE (BENADRYL) 25 mg capsule Take 1 capsule by mouth three times daily as needed (headache). Use as directed. ibuprofen (MOTRIN) 600 mg tablet Take 1 tablet by mouth every 8 hours as needed for pain (headache). hydrOXYzine HCl (ATARAX) 25 mg tablet TAKE 1 TABLET BY MOUTH THREE TIMES A DAY NEEDED FOR ITCHING/ rash and anxiety. traZODone (DESYREL) 100 mg tablet Take 2 tablets by mouth daily at bedtime. topiramate (TOPAMAX) 100 mg tablet Take one pill at bedtime topiramate (TOPAMAX) 50 mg tablet Take 1 tablet by mouth daily at bedtime. To take along with 100 mg to equal 150 mg at bedtime FLUoxetine (PROZAC) 10 mg capsule Take 2 capsules by mouth once daily. SUMAtriptan (IMITREX) 100 mg tablet Take 1 tablet by mouth as needed when migraine headache starts. May repeat in 2 hours if headache continues or returns. Do not exceed 4 tablets in 24 hours. naproxen (NAPROSYN) 500 mg tablet Take 1 tablet by mouth twice daily as needed (for pain). for pain. Take with food. polyethylene glycol 3350 (MIRALAX) 17 gram/dose powder Take 17 g by mouth as directed. Dissolve dose in 4 - 8 ounces of liquid and take as directed. docusate sodium (COLACE) 100 mg capsule Take 1 capsule by mouth once daily. docusate sodium (COLACE) 100 mg capsule Take 1 capsule by mouth once daily. cholestyramine-sucrose (QUESTRAN) 4 gram powder Take 2 g by mouth three times daily with meals. alpha lipoic acid-biotin (ALAMAX CR) 600 mg- 450 mcg extended release tablet Take 1 tablet by mouth once daily. selenium sulfide 2.5 % lotn Apply to eyebrows and davila region twice a week. allow to remain on for 5-10 minutes and rinse. Melatonin-SR (Klaire/Prothera) Take 1 capsule (3 mg) one hour before bedtime Buffered Ascorbic Acid capsules (Pure Encapsulations) - Vitamin C 2 capsules twice a day with or between meals Zinc [place] ([employer]) Take 1 capsule by mouth daily with food. Vitamin D3 5000 International Units (Pure Encapsulations) Take 1 capsule by mouth daily with food. EPINEPHrine (EPIPEN 2-ANDRE) 0.3 mg/0.3 mL auto-injector Inject 0.3 mL intramuscularly as needed (Inject in thigh as needed for anaphylaxis and call 911). GENERIC OKAY albuterol HFA (PROAIR HFA) 90 mcg/actuation inhaler Inhale 2 Puffs as instructed every 4 hours as needed. guaiFENesin (MUCINEX) 600 mg 12 hr tablet Take 1 tablet by mouth two times a day for 10 days. predniSONE (DELTASONE) 20 mg tablet Take 2 tablets by mouth once daily for 7 days. No current facility-administered medications for this visit. I have confirmed and edited as necessary the chief complaint, medications, past medical, family and social histories obtained by others. Objective BP 107/84 Pulse 81 Temp 97.5 Resp 16 Ht 5' 7" (1.70m) Wt 270 lb (122.5kg) SpO2 97% BMI 42.28 kg/(m^2). Physical Exam Vitals reviewed. Constitutional: General: He is not in acute distress. Appearance: Normal appearance. He is obese. HENT: Head: Normocephalic. Right Ear: Tympanic membrane normal. Left Ear: Tympanic membrane normal. Nose: Congestion present. Mouth/Throat: Mouth: Mucous membranes are moist. Pharynx: Oropharynx is clear. Eyes: Extraocular Movements: Extraocular movements intact. Conjunctiva/sclera: Conjunctivae normal. Pupils: Pupils are equal, round, and reactive to light. Cardiovascular: Rate and Rhythm: Normal rate and regular rhythm. Pulses: Normal pulses. Heart sounds: Normal heart sounds. No murmur heard. No friction rub. No gallop. Pulmonary: Effort: Pulmonary effort is normal. Breath sounds: Normal breath sounds. No wheezing, rhonchi or rales. Abdominal: General: Bowel sounds are normal. Palpations: Abdomen is soft. Musculoskeletal: General: Normal range of motion. Cervical back: Normal range of motion. Right lower leg: No edema. Left lower leg: No edema. Lymphadenopathy: Cervical: No cervical adenopathy. Skin: General: Skin is warm and dry. Findings: No lesion or rash. Neurological: General: No focal deficit present. Mental Status: He is alert and oriented to person, place, and time. Mental status is at baseline. Psychiatric: Mood and Affect: Mood normal. Behavior: Behavior normal. ASSESSMENT/PLAN: 1. Acute cough - ICD9: 786.2, ICD10: R05.1 (primary diagnosis) - COVID & INFLUENZA A/B & RSV NAAT, ROUTINE - XR CHEST 2V FRONTAL/LAT - PREDNISONE 20 MG TABLET 2. Sore throat - ICD9: 462, ICD10: J02.9 - COVID & INFLUENZA A/B & RSV NAAT, ROUTINE 3. Mild intermittent asthma without complication - ICD9: 493.90, ICD10: J45.20 - ALBUTEROL SULFATE HFA 90 MCG/ACTUATION AEROSOL INHALER 4. 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 Discussed the above with the patient using shared decision making. The patient is in agreement with the diagnostic and treatment plans. documented in this encounter [facility] 08-04-2023 Miscellaneous Notes Consult to Ear, Nose, and Throat Reference #: [id number] documented in this encounter [facility] 07-19-2023 History of Present illness Narrative Images from the original note were not included. Devon James Jr., M.D. [facility] [address] [place] [address] Date of Evaluation: 07/19/2023 Patient Name: Sam Rai : 1975 Chief Complaint: Patient presents with: Sinus Problem Nursing Intake: There are no exam notes on file for this visit. Subjective Mr. Rai is a 47 year old male who presents with the following complaint(s): HPI Patient was seen 6 days ago for what was felt to be a sinus infection and given a week of Augmentin. He has congestion in his face and under his eyes with some colored drainage evident. He is not sure that 1 more day is going to solve his problem. Also has left ear pain Review of Systems Constitutional: Negative for fever and weight loss. HENT: Positive for congestion, ear pain and sinus pain. Negative for nosebleeds. Eyes: Negative for blurred vision and double vision. Respiratory: Negative for cough and shortness of breath. Cardiovascular: Negative for chest pain and palpitations. Gastrointestinal: Negative for abdominal pain and heartburn. Genitourinary: Negative for dysuria and frequency. Musculoskeletal: Negative for back pain, joint pain and myalgias. Skin: Negative for itching and rash. Neurological: Negative for dizziness and focal weakness. Psychiatric/Behavioral: Negative for depression. The patient is not nervous/anxious. PAST MEDICAL HISTORY Diagnosis Date Acute medial meniscus tear of right knee Anxiety Asthma Contact dermatitis Recurrence not specified. COVID-19 long hauler Depression Diverticulitis GERD (gastroesophageal reflux disease) Insufficiency fracture of tibia Migraines Obesity, morbid, BMI 40.0-49.9 ([facility]) Primary osteoarthritis of right knee Restless legs syndrome (RLS) Sinus infection PAST SURGICAL HISTORY Procedure Laterality Date CARPAL TUNNEL Right CHOLECYSTECTOMY HX in 1999 KNEE SURGERY HX Right scope and tibial transfer ORTHOPEDICS SURGERY HX Right Right Knee PAST SURGICAL HISTORY OF teeth removed TONSILLECTOMY HX FAMILY HISTORY Problem Relation Age of Onset Stroke Mother Lipids Mother Hypertension Mother Obesity Mother Asthma Mother COPD Mother Lipids Father Hypertension Father Alcohol/Drug Father Restless legs syndrome No Family History Obstructive Sleep Apnea No Family History Social History Tobacco Use Smoking status: Never Smokeless tobacco: Never Vaping Use Vaping Use: Never used Substance Use Topics Alcohol use: Yes Comment: < 1/week Drug use: No Comment: No reported history. Current Meds amoxicillin-clavulanic acid (AUGMENTIN) 875-125 mg per tablet Take 1 tablet by mouth twice daily for 7 days. fluticasone (FLONASE) 50 mcg/actuation nasal spray Use 2 Sprays in each nostril daily at bedtime. indomethacin (INDOCIN) 50 mg capsule Take 1 capsule by mouth three times daily with meals. metoclopramide HCl (REGLAN) 10 mg tablet Take 1 tablet by mouth three times daily as needed. diphenhydrAMINE (BENADRYL) 25 mg capsule Take 1 capsule by mouth three times daily as needed (headache). Use as directed. ibuprofen (MOTRIN) 600 mg tablet Take 1 tablet by mouth every 8 hours as needed for pain (headache). hydrOXYzine HCl (ATARAX) 25 mg tablet TAKE 1 TABLET BY MOUTH THREE TIMES A DAY NEEDED FOR ITCHING/ rash and anxiety. traZODone (DESYREL) 100 mg tablet Take 2 tablets by mouth daily at bedtime. topiramate (TOPAMAX) 100 mg tablet Take one pill at bedtime topiramate (TOPAMAX) 50 mg tablet Take 1 tablet by mouth daily at bedtime. To take along with 100 mg to equal 150 mg at bedtime gabapentin (NEURONTIN) 300 mg capsule Take 4 capsules by mouth as directed for 180 days. FLUoxetine (PROZAC) 10 mg capsule Take 2 capsules by mouth once daily. SUMAtriptan (IMITREX) 100 mg tablet Take 1 tablet by mouth as needed when migraine headache starts. May repeat in 2 hours if headache continues or returns. Do not exceed 4 tablets in 24 hours. naproxen (NAPROSYN) 500 mg tablet Take 1 tablet by mouth twice daily as needed (for pain). for pain. Take with food. polyethylene glycol 3350 (MIRALAX) 17 gram/dose powder Take 17 g by mouth as directed. Dissolve dose in 4 - 8 ounces of liquid and take as directed. docusate sodium (COLACE) 100 mg capsule Take 1 capsule by mouth once daily. docusate sodium (COLACE) 100 mg capsule Take 1 capsule by mouth once daily. cholestyramine-sucrose (QUESTRAN) 4 gram powder Take 2 g by mouth three times daily with meals. alpha lipoic acid-biotin (ALAMAX CR) 600 mg- 450 mcg extended release tablet Take 1 tablet by mouth once daily. selenium sulfide 2.5 % lotn Apply to eyebrows and davila region twice a week. allow to remain on for 5-10 minutes and rinse. Melatonin-SR (Klaire/Prothera) Take 1 capsule (3 mg) one hour before bedtime Buffered Ascorbic Acid capsules (Pure Encapsulations) - Vitamin C 2 capsules twice a day with or between meals Zinc [place] ([employer]) Take 1 capsule by mouth daily with food. Vitamin D3 5000 International Units (Pure Encapsulations) Take 1 capsule by mouth daily with food. albuterol HFA (PROAIR HFA) 90 mcg/actuation inhaler Inhale 2 Puffs as instructed every 4 hours as needed. EPINEPHrine (EPIPEN 2-ANDRE) 0.3 mg/0.3 mL auto-injector Inject 0.3 mL intramuscularly as needed (Inject in thigh as needed for anaphylaxis and call 911). GENERIC OKAY amoxicillin-clavulanic acid (AUGMENTIN) 875-125 mg per tablet 1 tablet twice daily with food predniSONE (DELTASONE) 20 mg tablet Take 2 tablets by mouth once daily. (Patient not taking: Reported on 07/19/2023) I have confirmed and edited as necessary the chief complaint, medications, past medical, family and social histories obtained by others. Objective BP 116/72 Pulse 72 Wt 267 lb 12.8 oz (121.5kg) SpO2 97% Physical Exam Vitals and nursing note reviewed. HENT: Head: Normocephalic. Comments: Left TM is retracted and dull with obscured landmarks. There is tenderness to percussion over the frontal sinuses and the maxillary sinuses both Right Ear: External ear normal. Left Ear: External ear normal. Eyes: Pupils: Pupils are equal, round, and reactive to light. Cardiovascular: Rate and Rhythm: Normal rate and regular rhythm. Heart sounds: Normal heart sounds. Pulmonary: Effort: Pulmonary effort is normal. Breath sounds: Normal breath sounds. Abdominal: General: Bowel sounds are normal. Palpations: Abdomen is soft. There is no mass. Musculoskeletal: General: No tenderness. Normal range of motion. Cervical back: Normal range of motion and neck supple. Lymphadenopathy: Cervical: No cervical adenopathy. Skin: General: Skin is warm and dry. Neurological: Mental Status: He is alert and oriented to person, place, and time. Gait: Gait is intact. Deep Tendon Reflexes: Reflexes are normal and symmetric. Psychiatric: Mood and Affect: Mood and affect normal. ASSESSMENT/PLAN: 1. Bacterial sinusitis - ICD9: 473.9, 041.9, ICD10: J32.9, B96.89 - AMOXICILLIN 875 MG-POTASSIUM CLAVULANATE 125 MG TABLET Discussed with patient use of half percent Erwin-Synephrine spray 2-4 times daily as needed for congestion followed by Flonase nasal spray twice daily for the next 3 to 4 days then daily thereafter. We will give him another 10 days of Augmentin which I think is an excellent choice for antibiotic but the duration is inadequate. Phone call follow-up if problems persist. Devon aJmes Jr, MD No follow-ups on file. The above diagnoses & plan of care have been created and agreed upon with the patient. This note was partially generated using [employer] voice recognition system, and there may be some incorrect words, spellings, and punctuation that were not noted in checking the note before saving. documented in this encounter [facility] 07-12-2023 Nurse Note Patient has been identified by name and date of : Yes Sam is here for an injection of Kenalog 40 mg Dose: 40 Route: Intramuscular Given without incident. Site: right glut Supervisor Picking Crew: TEVA Lot #: [id number] [facility] #: [id number] Expiration Date: 11/30/2024 present in clinic at time of injection. Chloe Mc LPN documented in this encounter [facility] 07-12-2023 Instructions Elmira Polo PA-C - 07/12/2023 10:37 AM EDT Images from the original note were not included. Acute Sinusitis Each of us has four paired cavities (spaces) in our head that are connected to the nose by narrow channels. These cavities, known as sinuses, produce thin mucus that drains out of the channels of the nose. This drainage helps keep the nose clean and free of particles and bacteria. Normally, sinuses are filled with air. But when sinuses become blocked and filled with fluid, bacteria can grow and cause an infection (bacterial sinusitis). Conditions that cause sinus blockage include: the common cold allergic rhinitis (swelling of the lining of the nose due to allergies) nasal polyps (small growths in the lining of the nose), or a deviated septum (the wall between the left and right nostril is crooked). Allergies, such as hay fever, can also cause swelling and poor drainage of the sinuses. One confusing factor to consider is that many people with sinus headaches are actually suffering from migraines. In fact, in large clinical studies, up to 90% of people who reported sinus headaches were diagnosed with migraines instead. Migraines can cause headaches in combination with facial pressure over the sinuses, a runny nose, and nasal congestion. If you have symptoms that involve the sinuses, it may be difficult to tell if you have sinusitis, a cold, nasal allergy, or even a migraine. This article will describe the symptoms, diagnosis, and treatment of sinusitis, and how to tell the difference between sinusitis, cold, migraines, and nasal allergy. What is sinusitis? Sinusitis is an inflammation, or swelling, of the tissue lining the sinuses. There are two types of sinusitis: Acute bacterial sinusitis: a sudden onset of cold symptoms such as runny nose, stuffy nose, and facial pain that does not go away after 10 days, or symptoms that seem to begin improving but return worse than the initial symptoms. It responds well to antibiotics and decongestants. Chronic sinusitis: a condition defined by nasal congestion, drainage, facial pain/pressure, and decreased sense of smell for at least 12 weeks. Who gets sinusitis? Every year, approximately 1 billion Americans have at least one episode of viral sinusitis. About 37 million will develop a bacterial sinusitis. People who have the following conditions have a higher risk of sinusitis: Nasal mucus membrane swelling, as from a common cold or allergies Blockage of drainage ducts, leading to trapping of mucus Structure differences that narrow the drainage ducts Conditions that result in an increased risk of infection Polyps (growths) In children, common factors in the environment that contribute to sinusitis include allergies, illness from other children at day care or school, and smoke in the environment. In adults, the contributing factors are most frequently viral infections, allergies, and smoking. What are the signs and symptoms of acute sinusitis? The primary symptoms of acute sinusitis include: Facial pain/pressure/tenderness Nasal stuffiness Nasal discharge (thick yellow or green discharge from nose), especially if it is long-lasting Loss of smell and taste Cough/congestion Additional symptoms may include: Fever of 102 or higher Ear pain Headache Bad breath Fatigue Ache in upper jaw and teeth How is sinusitis diagnosed? To diagnose sinusitis, your doctor will discuss your symptoms and examine your nose for swelling and drainage. Your personal history is most important in diagnosing sinusitis. A physical exam of the ears, nose, and throat is performed to look for signs of obstruction (blockage) or infection. An endoscope (a small lighted/optical instrument) may be used to look inside the nose. In general, X-rays or CT scans do not play any role in the diagnosis of acute sinusitis. Some patients may have conditions that may need to be referred to a specialist, such as an ear, nose, and throat (ENT) physician. Additional diagnostic tests may be needed. Tests for these more complicated cases may include cultures, allergy testing, CT scan of the sinuses, or nasal endoscopy. Nasal endoscopy allows doctors to look directly inside the nose to see sinus drainage pathways. How is sinusitis treated? Acute sinusitis. If you have a simple sinusitis infection, your health care provider may recommend treatment with decongestants like Sudafed and tobs-ccs-txphxuf medications for cold and allergy, nasal saline irrigation, and drinking fluids (as most sinusitis is viral). If symptoms do not improve after at least 10 days, if the symptoms seem to be getting worse, or if medications for cold or allergy do not improve symptoms, a bacterial infection may be causing the sinusitis. In this case, antibiotics are given for 7 days in adults and 10 days in children. Antibiotics should improve symptoms within 48 hours. Oral or topical decongestants may be prescribed to relieve symptoms. Use of prescription intranasal steroid sprays might be added to help control symptoms. However, non-prescription drops or sprays should not be used beyond 5 days -- or they may actually increase congestion. Chronic sinusitis. Treating chronic sinusitis begins with controlling the underlying condition, which is most often allergies. Standard treatments include intranasal steroid sprays, topical antihistamine sprays, or antihistamine pills, and leukotriene antagonists such as montelukast. Often you will be encouraged to rinse the nose with saline irrigations. Sometimes medications may be added to these irrigations. If sinusitis is not controlled, the next step is a CT scan of the sinuses. This allows for a direct view of the nose and surrounding sinuses. Based upon CT findings, surgery may be recommended. Will I need to make lifestyle changes? If you have indoor allergies, avoiding triggers -- such as animal dander and dust mites - is recommended in addition to medications. Smoking is never recommended, but if you do smoke, strongly consider a program to help you stop smoking, as this may be the main reason you have sinus infections. No special diet is required, but drinking extra fluids helps to thin nasal secretions. What are the symptoms of the common cold? An upper respiratory infection (the common cold) is usually caused by a virus that infects the nose and throat. Most upper respiratory infections are not bacterial and do not respond to antibiotics. A cold may cause swelling in the sinuses, preventing the outflow of mucus. Cold symptoms include nasal congestion, runny nose, post-nasal drip (ztyb-bd-plbz release of nasal fluid into the back of the throat), headache, achiness, and fatigue. Cough and fever may also go along with these symptoms. Cold symptoms usually build, peak, and slowly disappear. No treatment is necessary for a cold, but some medications can ease symptoms. For example, decongestants may decrease drainage and open the nasal passages. Analgesics (pain relievers) may help with fever and headache. Cough medication may help, as well. Colds will typically last from a few days to about a week. What is the harm in getting an antibiotic for a common cold? Viral infections like the common cold are not cured by antibiotics. Taking an antibiotic for a viral infection unnecessarily puts you at risk for side effects related to the antibiotic. In addition, the overuse of antibiotics leads to antibiotic resistance, which may make future infections more difficult to treat. Finally, the use of inappropriate medication increases health care costs unnecessarily. What are the symptoms of nasal allergy? Symptoms of nasal allergy include: Sneezing Itchy nose Clear, watery nasal discharge Nasal blockage Feeling fatigued How is nasal allergy treated? Usually medications are prescribed to relieve symptoms. These may include antihistamines, with or without decongestants, or steroid nasal sprays. Other nasal sprays, which deliver antihistamines or cromolyn sodium, are sometimes helpful. If allergy symptoms are chronic (long-term), allergy testing and allergy shots (immunotherapy) may be helpful. How can I tell if I have a sinus infection, cold, or nasal allergy? Although the symptoms of sinusitis and nasal allergy may occur with a common cold, in general, cold-related symptoms disappear within 1 week. The point at which a normal cold ends and a sinus condition begins is not always easy to know. If you are fighting off a cold and develop symptoms of a sinus infection or nasal allergy, see your health care provider. You will be asked to describe your symptoms and medical history. How do I know if my sinus condition requires the care of an ear, nose, and throat specialist? Most routine sinus conditions are easily cared for by primary care physicians. If, however, you are bothered by ongoing abnormal symptoms, recurring infections, or have abnormal X-ray findings or complications, a referral to a specialist is appropriate. References Sagrario Wiseman al., IDSA Clinical Practice Guideline for Acute Bacterial Rhinosinusitis in Children and Adults. Clinical Infectious Diseases; 2012;54(8):9949-6970. Leo Severino, Sinusitis: Allergies, antibiotics, aspirin, asthma. [facility] Journal of Medicine 2006; 73(7): 671-678 National [place] [employer] All[employer] Infectious [employer]. Sinusitis (Sinus Infection) Accessed 09/10/2015. [employer]. Sinusitis Accessed 09/10/2015. [employer]. Sinus Information Accessed 09/10/2015. Leonor Junior., Prevalence of migraine in patients with a history of self-reported or physician-diagnosed "sinus" headache. Arch Animal Surgeon Med, 2004. 164(16):1769-72. Copyright 3804-7981 [facility]. All rights reserved. This information is provided by the [facility] and is not intended to replace the medical advice of your doctor or health care provider. Please consult your health care provider for advice about a specific medical condition. For additional health information, please contact the [facility] at the [facility] or toll-free extension [phone]. If you prefer, you may visit [email or web address] or [email or web address]. This document was last reviewed on: 2015 index#07762 Understanding Eczema What is eczema? Eczema is a general term for a group of conditions that cause the skin to become inflamed, red, dry, bumpy, and itchy. However, this term is most often used to refer to a condition called atopic dermatitis. In atopic dermatitis, skin barrier function (the "glue" of the skin) is damaged. This loss of barrier function makes the skin more sensitive and more prone to infection and to becoming dry. What are the symptoms of eczema? Common symptoms of eczema include: Itching Skin redness Dry, scaly, or crusted skin that might become thick and leathery from scratching Formation of bumps or small, fluid-filled blisters that might ooze when scratched In adults, eczema most often affects the hands. In children, eczema is more common in "bending" areas such as the insides of the elbows and backs of the knees. In babies, eczema is usually worst on the face, neck, and scalp. What causes eczema? The exact cause of eczema is not known. However, it appears to run in families and occurs more often in people who have a personal or family history of asthma, hay fever, and other allergies. This suggests that there is a genetic (hereditary) factor in the development of eczema (runs in the family). In addition, eczema symptoms tend to flare up or get worse when the person is exposed to certain substances and situations, called triggers. Eczema triggers might include: Skin irritants: Irritants are substances that cause burning, itching, or redness. They include harsh soaps, chemicals, perfumes, and skin care products that contain fragrance or alcohol. Some fabrics, such as wool, and tight clothing can also irritate the skin. Allergens: Allergens are substances that trigger an allergic reaction, which may include sneezing, itching, watery eyes, and a stuffed or runny nose. Some allergens such as pollens, pet hair, or foods (in rare cases) can also trigger or worsen eczema symptoms. Climate and environment: Low humidity (dry air) can cause the skin to become dry and itchy. Heat and high humidity cause sweating, which can make itching worse. Stress: Stress has been shown to trigger flare-ups in some people with eczema. In addition, it may be more difficult to avoid scratching irritated skin when under stress. How common is eczema? Eczema is a common skin condition, affecting as many as 15 million Americans. It most often occurs in very young children. Ten percent to 20 percent of all infants have eczema, according to the National Institutes of [employer]. However, nearly half outgrow the condition or have significant improvement as they get older. Eczema affects males and females equally, and is more common in people who have a personal or family history of asthma and allergies. How is eczema diagnosed? In most cases, eczema is diagnosed from the person's history of symptoms and by examining the skin. The doctor might test an area of scaly or crusted skin to rule out other skin diseases or infections. How is eczema treated? Treatment of eczema depends on the symptoms (for example, dry skin is treated differently than oozing blisters) and the factors that trigger or worsen symptoms. No one treatment is best for all people. The goal of treatment is to reduce itching and discomfort and to prevent infection and additional flare-ups. Treatment options include: Prevention: Preventing flare-ups is the best way to manage eczema. For that reason, it is important to try to identify and avoid symptom triggers, such as certain detergents or food allergens, and to moisturize the skin. Skin care: Keeping your skin moist is important, because itching increases when the skin is dry. Use a moisturizing cream or ointment. Lotions are less effective. It is important to keep skin moisturized by applying creams or ointments several times a day -- including after bathing/showering while skin is still damp -- to keep your skin moist. Use mild soaps and products that are free of perfumes, dyes, and alcohol. Look for products that are fragrance-free, hypoallergenic, and for sensitive skin. New products containing ceramide actually replace some of the glue that is missing in the skin of eczema patients and are the most effective moisturizers. Medications: Lerq-hxs-bbdrjcc creams and ointments containing the steroid cortisone -- such as hydrocortisone (Cortisone 10 ) and hydrocortisone acetate (Aubrey-Aid ) -- may be used to help control the itching, swelling, and redness associated with eczema. Stronger, prescription-strength steroid creams are also available. Steroid pills and shots may be used in the short term to get control of severe eczema, but long-term use of these is not recommended because of the possible side effects, which include high blood pressure, weight gain, and thinning of the skin. Newer medications, called topical immunomodulators (Zuleima), are showing progress in treating patients with moderate to severe eczema, particularly those patients who do not respond to traditional treatment. Zuleima -- such as tacrolimus (Protopic ) and pimecrolimus (Elidel) -- work by modulating (changing) the body's immune response to allergens. Zuleima also have fewer side effects than steroids. The most common side effect reported with tacrolimus is a temporary stinging or burning sensation that generally improves after a few days of use. Other medications that might be used for patients with eczema include antibiotics if the skin becomes infected, and antihistamines to help control itching. Some patients with severe eczema may require oral immunomodulatory or immunosuppressant medications to control their skin disease. Phototherapy: The ultraviolet light waves found in sunlight have been shown to help certain skin disorders, including eczema. Phototherapy uses ultraviolet light, usually ultraviolet B (UVB), from special lamps to treat people who have severe eczema. What complications are associated with eczema? Scratching or rubbing itchy areas can break the skin, allowing bacteria to enter and cause infection. Scars can form when the skin is damaged from continued scratching. Very itchy eczema can disturb sleep. Some people with eczema avoid social activities because they are uncomfortable and/or self-conscious. In persons with darker skin, inflammation from eczema may leave dark tineo that linger for months. Can eczema be prevented? There are steps you can take to prevent eczema outbreaks: Establish a skin care routine, and follow your doctor's recommendations for keeping your skin healthy. Wear gloves for jobs in which you have to put your hands in water. Wear cotton gloves under plastic gloves to absorb sweat, and wear gloves outside, especially during the winter months. Use mild soap for your bath or shower, and pat your skin dry instead of rubbing. Apply a moisturizing cream or ointment immediately after drying your skin to help seal in the moisture. Reapply cream or ointment two to three times a day. Take baths or showers with tepid (lukewarm) rather than hot water temperature. Drink at least eight glasses of water each day. Water helps to keep your skin moist. Try to avoid getting too hot and sweaty. Wear loose clothes made of cotton and other natural materials. Wash new clothing before wearing. Avoid wool. Avoid sudden changes in temperature and humidity. Learn to recognize stress in your life and how to manage it. Regular aerobic exercise, hobbies, and stress-management techniques, such as meditation or yoga, might help. Limit your exposure to known irritants and allergens. Avoid scratching or rubbing itchy areas of skin. What is the outlook for people with eczema? Nearly half of children with eczema will outgrow the condition or experience great improvement by the time they reach puberty. Others will continue to have some form of the disease. For adults with eczema, the disease can be generally well-managed with good skin care and treatment, although flare-ups of symptoms can occur throughout life. Can eczema be cured? Currently, there is no cure for eczema. However, proper treatment and good skin care can often control or minimize symptoms. References National [place] [employer] Mus[employer] and Skin Diseases. What Is Atopic Dermatitis? Accessed 11/10/2016. [employer] [place] [employer]ious [employer]. Skin Care at Home Accessed 11/10/2016. [employer]. What is eczema? Accessed 11/10/2016. Copyright 2449-7150 [facility]. All rights reserved This information is provided by the [facility] and is not intended to replace the medical advice of your doctor or health care provider. Please consult your health care provider for advice about a specific medical condition. For additional health information, please contact the Center for Consumer Health Information at the [facility] or toll-free extension [phone]. If you prefer, you may visit [email or web address] or [email or web address]. This document was last reviewed on: 2016 index#[id number] documented in this encounter [facility] 07-12-2023 History of Present illness Narrative Images from the original note were not included. [facility] Medicine [facility] [place] [address] Date of Evaluation: 07/12/2023 Patient Name: Sam Rai : 1975 Chief Complaint: Patient presents with: Sinus Problem: Headache, sinus pressure, productive cough and bilateral ear ache. X's 1 week did not test for covid. And his eczema is starting up on his right leg again. Nursing Intake: There are no exam notes on file for this visit. Subjective HPI Mr. Rai is a 47 year old male who presents for ear pressure, sore throat, NICE, productive cough at times. No sob, cp, fever. Taking benadryl for allergies. Aleve. Eczema right lower leg. Review of Systems Constitutional: Negative for chills, fatigue and fever. HENT: Positive for congestion, ear pain and sore throat. Respiratory: Positive for cough. Negative for shortness of breath. Cardiovascular: Negative for chest pain and palpitations. Gastrointestinal: Negative for diarrhea, nausea and vomiting. Musculoskeletal: Negative for back pain and myalgias. Skin: Positive for rash. Neurological: Negative for dizziness, weakness and headaches. Psychiatric/Behavioral: Negative for sleep disturbance. PAST MEDICAL HISTORY Diagnosis Date Acute medial meniscus tear of right knee Anxiety Asthma Contact dermatitis Recurrence not specified. COVID-19 long hauler Depression Diverticulitis GERD (gastroesophageal reflux disease) Insufficiency fracture of tibia Migraines Obesity, morbid, BMI 40.0-49.9 ([facility]) Primary osteoarthritis of right knee Restless legs syndrome (RLS) Sinus infection PAST SURGICAL HISTORY Procedure Laterality Date CARPAL TUNNEL Right CHOLECYSTECTOMY HX in 1999 KNEE SURGERY HX Right scope and tibial transfer ORTHOPEDICS SURGERY HX Right Right Knee PAST SURGICAL HISTORY OF teeth removed TONSILLECTOMY HX FAMILY HISTORY Problem Relation Age of Onset Stroke Mother Lipids Mother Hypertension Mother Obesity Mother Asthma Mother COPD Mother Lipids Father Hypertension Father Alcohol/Drug Father Restless legs syndrome No Family History Obstructive Sleep Apnea No Family History Social History Tobacco Use Smoking status: Never Smokeless tobacco: Never Vaping Use Vaping Use: Never used Substance Use Topics Alcohol use: Yes Comment: < 1/week Drug use: No Comment: No reported history. Current Outpatient Medications Medication Sig indomethacin (INDOCIN) 50 mg capsule Take 1 capsule by mouth three times daily with meals. metoclopramide HCl (REGLAN) 10 mg tablet Take 1 tablet by mouth three times daily as needed. diphenhydrAMINE (BENADRYL) 25 mg capsule Take 1 capsule by mouth three times daily as needed (headache). Use as directed. ibuprofen (MOTRIN) 600 mg tablet Take 1 tablet by mouth every 8 hours as needed for pain (headache). predniSONE (DELTASONE) 20 mg tablet Take 2 tablets by mouth once daily. hydrOXYzine HCl (ATARAX) 25 mg tablet TAKE 1 TABLET BY MOUTH THREE TIMES A DAY NEEDED FOR ITCHING/ rash and anxiety. traZODone (DESYREL) 100 mg tablet Take 2 tablets by mouth daily at bedtime. topiramate (TOPAMAX) 100 mg tablet Take one pill at bedtime topiramate (TOPAMAX) 50 mg tablet Take 1 tablet by mouth daily at bedtime. To take along with 100 mg to equal 150 mg at bedtime gabapentin (NEURONTIN) 300 mg capsule Take 4 capsules by mouth as directed for 180 days. FLUoxetine (PROZAC) 10 mg capsule Take 2 capsules by mouth once daily. SUMAtriptan (IMITREX) 100 mg tablet Take 1 tablet by mouth as needed when migraine headache starts. May repeat in 2 hours if headache continues or returns. Do not exceed 4 tablets in 24 hours. fluticasone (FLONASE ALLERGY RELIEF) 50 mcg/actuation nasal spray Use 1 Holton in each nostril twice daily. naproxen (NAPROSYN) 500 mg tablet Take 1 tablet by mouth twice daily as needed (for pain). for pain. Take with food. polyethylene glycol 3350 (MIRALAX) 17 gram/dose powder Take 17 g by mouth as directed. Dissolve dose in 4 - 8 ounces of liquid and take as directed. docusate sodium (COLACE) 100 mg capsule Take 1 capsule by mouth once daily. docusate sodium (COLACE) 100 mg capsule Take 1 capsule by mouth once daily. cholestyramine-sucrose (QUESTRAN) 4 gram powder Take 2 g by mouth three times daily with meals. alpha lipoic acid-biotin (ALAMAX CR) 600 mg- 450 mcg extended release tablet Take 1 tablet by mouth once daily. selenium sulfide 2.5 % lotn Apply to eyebrows and davila region twice a week. allow to remain on for 5-10 minutes and rinse. Melatonin-SR (Klaire/Prothera) Take 1 capsule (3 mg) one hour before bedtime Buffered Ascorbic Acid capsules (Pure Encapsulations) - Vitamin C 2 capsules twice a day with or between meals Zinc [place] ([employer]) Take 1 capsule by mouth daily with food. Vitamin D3 5000 International Units (Pure Encapsulations) Take 1 capsule by mouth daily with food. albuterol HFA (PROAIR HFA) 90 mcg/actuation inhaler Inhale 2 Puffs as instructed every 4 hours as needed. EPINEPHrine (EPIPEN 2-ANDRE) 0.3 mg/0.3 mL auto-injector Inject 0.3 mL intramuscularly as needed (Inject in thigh as needed for anaphylaxis and call 911). GENERIC OKAY No current facility-administered medications for this visit. I have confirmed and edited as necessary the chief complaint, medications, past medical, family and social histories obtained by others. Objective There were no vitals taken for this visit. Physical Exam Constitutional: Appearance: He is not diaphoretic. HENT: Head: Normocephalic and atraumatic. Nose: Mucosal edema and congestion present. Right Sinus: Maxillary sinus tenderness present. Left Sinus: Maxillary sinus tenderness present. Eyes: Conjunctiva/sclera: Conjunctivae normal. Pupils: Pupils are equal, round, and reactive to light. Neck: Thyroid: No thyromegaly. Cardiovascular: Rate and Rhythm: Normal rate and regular rhythm. Heart sounds: No murmur heard. No friction rub. No gallop. Pulmonary: Effort: Pulmonary effort is normal. Breath sounds: Normal breath sounds. Abdominal: General: There is no distension. Palpations: Abdomen is soft. There is no mass. Tenderness: There is no abdominal tenderness. Musculoskeletal: General: Normal range of motion. Cervical back: Normal range of motion and neck supple. Lymphadenopathy: Cervical: No cervical adenopathy. Skin: General: Skin is warm and dry. Findings: Rash present. No erythema. Rash is macular. Neurological: Mental Status: He is alert and oriented to person, place, and time. ASSESSMENT/PLAN: 1. Acute non-recurrent sinusitis, unspecified location - ICD9: 461.9, ICD10: J01.90 (primary diagnosis) - Will begin treatment with as per antibiotic as written, see orders - Supportive care with plenty of fluids, rest, and analgesia prn. - AMOXICILLIN 875 MG-POTASSIUM CLAVULANATE 125 MG TABLET - FLUTICASONE PROPIONATE 50 MCG/ACTUATION NASAL SPRAY,SUSPENSION 2. Eczema of lower extremity - ICD9: 692.9, ICD10: L30.9 - discussed skin care of rash - follow up if symptoms persist or worsen. - TRIAMCINOLONE ACETONIDE 40 MG/ML SUSPENSION FOR INJECTION Elmira Polo PA-C No follow-ups on file. Discussed the above with the patient using shared decision making. The patient is in agreement with the diagnostic and treatment plans. documented in this encounter [facility] 05-13-2023 Miscellaneous Notes Order for the knee brace requested by Dr. Serrano is from 2021. The patient never picked up the brace, but wants it. Last seen for this condition by Dr. Serrano in 2021. Asking Dr[address] Serrano if it is appropriate for a new brace order to be entered in his name. Leslee Barrios May 13, 2023 11:52 AM Showed Kristopher Toussaint the box containing the left full force knee brace and the order from Dr. Serrano for the brace that has been in the ortho office for the patient since 07/23 and asked him if patient should still be fitted for it, or if it was no longer necessary. Kristopher stated that the patient should be fitted for the brace. Called the patient to schedule a fitting. Checking with vendor to see it would be ok for me to schedule him for a 2:00 arrival on 05/21, 15 minutes later than the normal last appointment of the afternoon. Leslee Barrios May 13, 2023 10:37 AM documented in this encounter [facility] 05-13-2023 History of Present illness Narrative Associated Order(s): Large Joint Arthro/Inj: L knee joint Post-Procedure Diagnose(s): Post-traumatic osteoarthritis of left knee Images from the original note were not included. ORTHOPAEDIC OFFICE NOTE CHIEF COMPLAINT: Chronic left knee pain HISTORY OF PRESENT ILLNESS: Sam Rai is a 47 year with a history of traumatic osteoarthritis affecting both knees. Status post lateral joint line chondroplasty 04/2020 ([facility]), serial cortisone injections, viscosupplementation and unloading brace. Seen today because of gradual worsening of pain and decrease of daily function through the left knee. Pain is a 6/10 sometimes worse with prolonged standing at work. He also feels as though the knee "gives out". He states that he is gaining weight which is frustrating. He denies fevers or chills or new injury. PAST MEDICAL HISTORY Diagnosis Date Acute medial meniscus tear of right knee Anxiety Asthma Contact dermatitis Recurrence not specified. COVID-19 long hauler Depression Diverticulitis GERD (gastroesophageal reflux disease) Insufficiency fracture of tibia Migraines Obesity, morbid, BMI 40.0-49.9 ([facility]) Primary osteoarthritis of right knee Restless legs syndrome (RLS) Sinus infection PAST SURGICAL HISTORY Procedure Laterality Date CARPAL TUNNEL Right CHOLECYSTECTOMY HX in 1999 KNEE SURGERY HX Right scope and tibial transfer ORTHOPEDICS SURGERY HX Right Right Knee PAST SURGICAL HISTORY OF teeth removed TONSILLECTOMY HX FAMILY HISTORY Problem Relation Age of Onset Stroke Mother Lipids Mother Hypertension Mother Obesity Mother Asthma Mother COPD Mother Lipids Father Hypertension Father Alcohol/Drug Father Restless legs syndrome No Family History Obstructive Sleep Apnea No Family History Social History Tobacco Use Smoking status: Never Smokeless tobacco: Never Vaping Use Vaping Use: Never used Substance Use Topics Alcohol use: Yes Comment: < 1/week Drug use: No Comment: No reported history. MEDICATIONS: Current Outpatient Medications Medication Sig indomethacin (INDOCIN) 50 mg capsule Take 1 capsule by mouth three times daily with meals. metoclopramide HCl (REGLAN) 10 mg tablet Take 1 tablet by mouth three times daily as needed. diphenhydrAMINE (BENADRYL) 25 mg capsule Take 1 capsule by mouth three times daily as needed (headache). Use as directed. ibuprofen (MOTRIN) 600 mg tablet Take 1 tablet by mouth every 8 hours as needed for pain (headache). predniSONE (DELTASONE) 20 mg tablet Take 2 tablets by mouth once daily. hydrOXYzine HCl (ATARAX) 25 mg tablet TAKE 1 TABLET BY MOUTH THREE TIMES A DAY NEEDED FOR ITCHING/ rash and anxiety. traZODone (DESYREL) 100 mg tablet Take 2 tablets by mouth daily at bedtime. topiramate (TOPAMAX) 100 mg tablet Take one pill at bedtime topiramate (TOPAMAX) 50 mg tablet Take 1 tablet by mouth daily at bedtime. To take along with 100 mg to equal 150 mg at bedtime gabapentin (NEURONTIN) 300 mg capsule Take 4 capsules by mouth as directed for 180 days. FLUoxetine (PROZAC) 10 mg capsule Take 2 capsules by mouth once daily. SUMAtriptan (IMITREX) 100 mg tablet Take 1 tablet by mouth as needed when migraine headache starts. May repeat in 2 hours if headache continues or returns. Do not exceed 4 tablets in 24 hours. fluticasone (FLONASE ALLERGY RELIEF) 50 mcg/actuation nasal spray Use 1 Holton in each nostril twice daily. naproxen (NAPROSYN) 500 mg tablet Take 1 tablet by mouth twice daily as needed (for pain). for pain. Take with food. polyethylene glycol 3350 (MIRALAX) 17 gram/dose powder Take 17 g by mouth as directed. Dissolve dose in 4 - 8 ounces of liquid and take as directed. docusate sodium (COLACE) 100 mg capsule Take 1 capsule by mouth once daily. docusate sodium (COLACE) 100 mg capsule Take 1 capsule by mouth once daily. cholestyramine-sucrose (QUESTRAN) 4 gram powder Take 2 g by mouth three times daily with meals. alpha lipoic acid-biotin (ALAMAX CR) 600 mg- 450 mcg extended release tablet Take 1 tablet by mouth once daily. selenium sulfide 2.5 % lotn Apply to eyebrows and davila region twice a week. allow to remain on for 5-10 minutes and rinse. Melatonin-SR (Klaire/Prothera) Take 1 capsule (3 mg) one hour before bedtime Buffered Ascorbic Acid capsules (Pure Encapsulations) - Vitamin C 2 capsules twice a day with or between meals Zinc [place] ([employer]) Take 1 capsule by mouth daily with food. Vitamin D3 5000 International Units (Pure Encapsulations) Take 1 capsule by mouth daily with food. albuterol HFA (PROAIR HFA) 90 mcg/actuation inhaler Inhale 2 Puffs as instructed every 4 hours as needed. EPINEPHrine (EPIPEN 2-ANDRE) 0.3 mg/0.3 mL auto-injector Inject 0.3 mL intramuscularly as needed (Inject in thigh as needed for anaphylaxis and call 911). GENERIC OKAY No current facility-administered medications for this visit. ALLERGIES: ALLERGIES Allergen Reactions Bactrim [Sulfametho* Hives Erythromycin Base Hives, Shortness of Breath Sulfa (Sulfonamide * Unknown REVIEW OF SYSTEMS: Reviewed [employer]'s note of ROS with the patient and agree with results. MSK: + as noted in HPI. PHYSICAL EXAMINATION: Resp 16 Ht 5' 7" (1.70m) Wt 268 lb (121.6kg) BMI 41.96 kg/(m^2). General Appearance: Well appearing, alert, in no acute distress, well-hydrated, well nourished. and Morbidly obese Skin: Skin color, texture, turgor normal, no suspicious rashes or lesions. Peripheral Pulses: Normal. Neurologic: NVI yes bilateral lower extremities. + FHL/EHL left great toe. Extremities: Section of the left knee is with mild genu valgus. + TTP to the lateral joint line. ROM:0-120 Ligaments intact to valgus and varus stresses Jeremi's equivocal Marquis negative Homans negative IMAGES: 2 views of the left knee (interpreted by myself showing lateral joint space chondral density consistent with past surgical chondroplasty. Lateral joint space is [id number] with subchondral sclerosis. No cortical disruption seen. ASSESSMENT AND PLAN: 1. Post-traumatic osteoarthritis of left knee - ICD9: 715.26, ICD10: M17.32 (primary diagnosis) 2. Chronic pain of left knee - ICD9: 719.46, 338.29, ICD10: M25.562, G89.29 Functional Plan: Succussion with Sam going over his x-rays and future plans for total knee arthroplasty. Based on BMI and age he is does not qualify for surgical knee replacement. Assistance Devices: Lateral unloading brace Physical/Occupational Therapy: Consult to obesity medicine clinic Wound Care: N/A Pain Control: Ice, heat, extra strength Tylenol, limited NSAIDs Fragility Fracture: N/A Additional: Patient agrees to attending consult for obesity medicine to help reduce BMI and to improve nutrition and overall wellness. PAR-Q held and discussed the risks and alternatives to cortisone injection which was done today. He tolerated the injection well. Large Joint Arthro/Inj: L knee joint Informed Consent Consent Obtained: Verbal [place] Protocol SIGN IN TIME OUT 05/13/2023 9:19 AM The procedure site was prepped in the usual sterile fashion. Site: L knee joint Medications: 40 mg triamcinolone acetonide 40 mg/mL Anesthetics: 4 mL lidocaine (PF) 10 mg/mL (1 %) Outcome: Tolerated well, no immediate complications Post-injection instructions were reviewed with the patient and the patient voiced understanding of these instructions. Sam understands that orthopedics has nothing surgical to offer at this time. She will need for total knee arthroplasty which would put him at great risk for need for surgical revision at such a young age. Repeat cortisone injection if efficacious no sooner than 08/2023 Consider new lateral unloading brace for the left knee at the end of 2022 Kristopher Toussaint PA-C documented in this encounter [facility] 04-22-2023 Miscellaneous Notes I called the patient to get scheduled with Dr. Serrano but patient is requesting to see Dr. Freire. I sent him to [employer] voicemail to get scheduled. [place] [facility] April 22, 2023 2:40 PM ----- Message from Kaylan Bishop sent at 04/22/2023 10:52 AM EDT ----- Regarding: Orthopedics / Open Knee: Pain / Recent ED Visit Subject Line Format: Orthopedics / [Provider Name or "Open & Body Part"] / [Issue] Patient has been identified by name and Date of (Y/N): Y Patient: Sam Rai Date of : 1975 Previous Provider Seen: Lear Body Part(s) Identified: Left Knee Diagnosis/Reason For Visit: Pain Reason for the call/escalation: ER Follow Up If reason for call/escalation is discharge from ED/ER or Hospital, which facility was the patient seen at: [facility] 04/08/23 Was an appointment scheduled (Y/N): n-ER f/u Person calling if other than patient: Sam Box (same name) Return call to if other than patient: Sam Box Best contact number: [phone] Thank you, Kaylan Bishop April 22, 2023 10:52 AM documented in this encounter [facility] 04-01-2023 Miscellaneous Notes Consult to Orthopaedics Reference #: [id number] documented in this encounter [facility] 03-31-2023 History of Present illness Narrative Images from the original note were not included. Devon James Jr., M.D. [facility] Adult Medicine [address] [place] [id number] Date of Evaluation: 03/31/2023 Patient Name: Sam Rai : 1975 Chief Complaint: Patient presents with: Established Patient: Left knee Nursing Intake: There are no exam notes on file for this visit. Subjective Mr. Rai is a 47 year old male who presents with the following complaint(s): HPI Pt c/o pain in his left knee for several years. Had previously seen Dr. Serrano who indicated he needed a joint replacement but was "too young." Has had no improvement with Ibuprofen 600 mg or naprosyn 500 mg. Wonders what to do? Review of Systems Constitutional: Negative for fever and weight loss. HENT: Negative for congestion, ear pain and nosebleeds. Eyes: Negative for blurred vision and double vision. Respiratory: Negative for cough and shortness of breath. Cardiovascular: Negative for chest pain and palpitations. Gastrointestinal: Negative for abdominal pain and heartburn. Genitourinary: Negative for dysuria and frequency. Musculoskeletal: Positive for joint pain. Negative for back pain and myalgias. Skin: Negative for itching and rash. Neurological: Negative for dizziness and focal weakness. Psychiatric/Behavioral: Negative for depression. The patient is not nervous/anxious. PAST MEDICAL HISTORY Diagnosis Date Acute medial meniscus tear of right knee Anxiety Asthma Contact dermatitis Recurrence not specified. COVID-19 long hauler Depression Diverticulitis GERD (gastroesophageal reflux disease) Insufficiency fracture of tibia Migraines Obesity, morbid, BMI 40.0-49.9 ([facility]) Primary osteoarthritis of right knee Restless legs syndrome (RLS) Sinus infection PAST SURGICAL HISTORY Procedure Laterality Date CARPAL TUNNEL Right CHOLECYSTECTOMY HX in 1999 KNEE SURGERY HX Right scope and tibial transfer ORTHOPEDICS SURGERY HX Right Right Knee PAST SURGICAL HISTORY OF teeth removed TONSILLECTOMY HX FAMILY HISTORY Problem Relation Age of Onset Stroke Mother Lipids Mother Hypertension Mother Obesity Mother Asthma Mother COPD Mother Lipids Father Hypertension Father Alcohol/Drug Father Restless legs syndrome No Family History Obstructive Sleep Apnea No Family History Social History Tobacco Use Smoking status: Never Smokeless tobacco: Never Vaping Use Vaping Use: Never used Substance Use Topics Alcohol use: Yes Comment: < 1/week Drug use: No Comment: No reported history. Current Meds metoclopramide HCl (REGLAN) 10 mg tablet Take 1 tablet by mouth three times daily as needed. diphenhydrAMINE (BENADRYL) 25 mg capsule Take 1 capsule by mouth three times daily as needed (headache). Use as directed. ibuprofen (MOTRIN) 600 mg tablet Take 1 tablet by mouth every 8 hours as needed for pain (headache). predniSONE (DELTASONE) 20 mg tablet Take 2 tablets by mouth once daily. hydrOXYzine HCl (ATARAX) 25 mg tablet TAKE 1 TABLET BY MOUTH THREE TIMES A DAY NEEDED FOR ITCHING/ rash and anxiety. traZODone (DESYREL) 100 mg tablet Take 2 tablets by mouth daily at bedtime. topiramate (TOPAMAX) 100 mg tablet Take one pill at bedtime topiramate (TOPAMAX) 50 mg tablet Take 1 tablet by mouth daily at bedtime. To take along with 100 mg to equal 150 mg at bedtime gabapentin (NEURONTIN) 300 mg capsule Take 4 capsules by mouth as directed for 180 days. FLUoxetine (PROZAC) 10 mg capsule Take 2 capsules by mouth once daily. SUMAtriptan (IMITREX) 100 mg tablet Take 1 tablet by mouth as needed when migraine headache starts. May repeat in 2 hours if headache continues or returns. Do not exceed 4 tablets in 24 hours. fluticasone (FLONASE ALLERGY RELIEF) 50 mcg/actuation nasal spray Use 1 [place] in each nostril twice daily. naproxen (NAPROSYN) 500 mg tablet Take 1 tablet by mouth twice daily as needed (for pain). for pain. Take with food. polyethylene glycol 3350 (MIRALAX) 17 gram/dose powder Take 17 g by mouth as directed. Dissolve dose in 4 - 8 ounces of liquid and take as directed. docusate sodium (COLACE) 100 mg capsule Take 1 capsule by mouth once daily. docusate sodium (COLACE) 100 mg capsule Take 1 capsule by mouth once daily. cholestyramine-sucrose (QUESTRAN) 4 gram powder Take 2 g by mouth three times daily with meals. alpha lipoic acid-biotin (ALAMAX CR) 600 mg- 450 mcg extended release tablet Take 1 tablet by mouth once daily. selenium sulfide 2.5 % lotn Apply to eyebrows and davila region twice a week. allow to remain on for 5-10 minutes and rinse. Melatonin-SR (Klaire/Prothera) Take 1 capsule (3 mg) one hour before bedtime Buffered Ascorbic Acid capsules (Pure Encapsulations) - Vitamin C 2 capsules twice a day with or between meals Zinc [place] ([employer]) Take 1 capsule by mouth daily with food. Vitamin D3 5000 International Units (Pure Encapsulations) Take 1 capsule by mouth daily with food. albuterol HFA (PROAIR HFA) 90 mcg/actuation inhaler Inhale 2 Puffs as instructed every 4 hours as needed. EPINEPHrine (EPIPEN 2-ANDRE) 0.3 mg/0.3 mL auto-injector Inject 0.3 mL intramuscularly as needed (Inject in thigh as needed for anaphylaxis and call 911). GENERIC OKAY I have confirmed and edited as necessary the chief complaint, medications, past medical, family and social histories obtained by others. Objective Pulse 69 Wt 264 lb 9.6 oz (120.0kg) SpO2 96% Physical Exam Vitals and nursing note reviewed. HENT: Head: Normocephalic. Right Ear: External ear normal. Left Ear: External ear normal. Eyes: Pupils: Pupils are equal, round, and reactive to light. Cardiovascular: Rate and Rhythm: Normal rate and regular rhythm. Heart sounds: Normal heart sounds. Pulmonary: Effort: Pulmonary effort is normal. Breath sounds: Normal breath sounds. Abdominal: General: Bowel sounds are normal. Palpations: Abdomen is soft. There is no mass. Musculoskeletal: General: Swelling and deformity present. No tenderness. Normal range of motion. Cervical back: Normal range of motion and neck supple. Lymphadenopathy: Cervical: No cervical adenopathy. Skin: General: Skin is warm and dry. Neurological: Mental Status: He is alert and oriented to person, place, and time. Gait: Gait is intact. Deep Tendon Reflexes: Reflexes are normal and symmetric. Psychiatric: Mood and Affect: Mood and affect normal. ASSESSMENT/PLAN: 1. Chronic pain of left knee - ICD9: 719.46, 338.29, ICD10: M25.562, G89.29 - XR KNEE GENERAL 4V AP BOTH/PA BOTH/LAT/MERC LEFT - CONSULT PANEL TO ORTHOPAEDICS - INDOMETHACIN 50 MG CAPSULE Discussed with patient x-ray and referral to orthopedics to consider possibility of arthroscopic exam. In the meanwhile we will try indomethacin 50 mg up to 3 times daily with food replacing ibuprofen and naproxen sodium. Will phone call follow-up results of x-rays obtained. Recheck in 2 to 3 months. Devon James Jr, MD No follow-ups on file. The above diagnoses & plan of care have been created and agreed upon with the patient. This note was partially generated using Dragon voice recognition system, and there may be some incorrect words, spellings, and punctuation that were not noted in checking the note before saving. documented in this encounter [facility] 02-02-2023 Miscellaneous Notes The referral placed for February 02, 2023 has been submitted via the [facility] Internal Referral Request form on the [facility] Appointment Portal. Confirmation # [id number] Samia Rosa MA documented in this encounter [facility] 02-02-2023 Nurse Note Patient has been identified by name and date of : Yes Sam is here for an injection of Kenalog 1 ml Dose: 1 ml Route: Intramuscular Given without incident. Site: left upper outer quadrant gluteous Supervisor Picking Crew: teva Lot #: [id number] [facility] #: [id number] Expiration Date: 03/2024 Dr. Elmira polo present in clinic at time of injection. The date due for the next injection is . Samia Rosa MA documented in this encounter [facility] 02-02-2023 History of Present illness Narrative Images from the [place] [address] Date of Evaluation: 02/02/2023 Patient Name: Sam Rai : 1975 Chief Complaint: Patient presents with: Rx Refills Rash: Rash on right lower leg and right elbow, elbow is new for a few days, rash on legs has been there for a couple months gotten worse Nursing Intake: There are no exam notes on file for this visit. Subjective HPI Mr. Rai is a 47 year old male who presents with the following complaint(s): med refills and rash. Patient seen 2 months ago for eczema on right leg. Prescribed prednisone and it improved but back again and now has it in right arm crease. Very itchy. Using OTC eczema cream and psoriasis cream. Denies any rash elsewhere. Patient also has h/o asthma but denies any recent flare ups. Denies fever, chest pain, SOB. Needs refills on meds today as well. Review of Systems Constitutional: Negative for chills, fatigue and fever. Respiratory: Negative for cough and shortness of breath. Cardiovascular: Negative for chest pain and palpitations. Gastrointestinal: Negative for diarrhea, nausea and vomiting. Musculoskeletal: Negative for back pain and myalgias. Skin: Positive for rash. Neurological: Negative for dizziness, weakness and headaches. Psychiatric/Behavioral: Negative for sleep disturbance. PAST MEDICAL HISTORY Diagnosis Date Acute medial meniscus tear of right knee Anxiety Asthma Contact dermatitis Recurrence not specified. COVID-19 long hauler Depression Diverticulitis GERD (gastroesophageal reflux disease) Insufficiency fracture of tibia Migraines Obesity, morbid, BMI 40.0-49.9 ([facility]) Primary osteoarthritis of right knee Restless legs syndrome (RLS) Sinus infection PAST SURGICAL HISTORY Procedure Laterality Date CARPAL TUNNEL Right CHOLECYSTECTOMY HX in 1999 KNEE SURGERY HX Right scope and tibial transfer ORTHOPEDICS SURGERY HX Right Right Knee PAST SURGICAL HISTORY OF teeth removed TONSILLECTOMY HX FAMILY HISTORY Problem Relation Age of Onset Stroke Mother Lipids Mother Hypertension Mother Obesity Mother Asthma Mother COPD Mother Lipids Father Hypertension Father Alcohol/Drug Father Restless legs syndrome No Family History Obstructive Sleep Apnea No Family History Social History Tobacco Use Smoking status: Never Smokeless tobacco: Never Vaping Use Vaping Use: Never used Substance Use Topics Alcohol use: Yes Comment: < 1/week Drug use: No Comment: No reported history. Current Outpatient Medications Medication Sig SUMAtriptan (IMITREX) 100 mg tablet Take 1 tablet by mouth as needed when migraine headache starts. May repeat in 2 hours if headache continues or returns. Do not exceed 4 tablets in 24 hours. fluticasone (FLONASE ALLERGY RELIEF) 50 mcg/actuation nasal spray Use 1 Hol[place] in each nostril twice daily. traZODone (DESYREL) 100 mg tablet Take 2 tablets by mouth daily at bedtime. topiramate (TOPAMAX) 100 mg tablet Take one pill at bedtime topiramate (TOPAMAX) 50 mg tablet Take 1 tablet by mouth daily at bedtime. To take along with 100 mg to equal 150 mg at bedtime naproxen (NAPROSYN) 500 mg tablet Take 1 tablet by mouth twice daily as needed (for pain). for pain. Take with food. polyethylene glycol 3350 (MIRALAX) 17 gram/dose powder Take 17 g by mouth as directed. Dissolve dose in 4 - 8 ounces of liquid and take as directed. docusate sodium (COLACE) 100 mg capsule Take 1 capsule by mouth once daily. ondansetron orally disintegrating (ZOFRAN ODT) 4 mg disintegrating tablet Take 1 tablet by mouth every 8 hours as needed for nausea/vomiting. docusate sodium (COLACE) 100 mg capsule Take 1 capsule by mouth once daily. FLUoxetine (PROZAC) 10 mg capsule Take 2 capsules by mouth once daily. cholestyramine-sucrose (QUESTRAN) 4 gram powder Take 2 g by mouth three times daily with meals. hydrOXYzine HCl (ATARAX) 25 mg tablet Take 1 tablet by mouth three times daily as needed for itching/rash. And anxiety alpha lipoic acid-biotin (ALAMAX CR) 600 mg- 450 mcg extended release tablet Take 1 tablet by mouth once daily. selenium sulfide 2.5 % lotn Apply to eyebrows and davila region twice a week. allow to remain on for 5-10 minutes and rinse. Melatonin-SR (Klaire/Prothera) Take 1 capsule (3 mg) one hour before bedtime Buffered Ascorbic Acid capsules (Pure Encapsulations) - Vitamin C 2 capsules twice a day with or between meals Zinc [place] ([employer]) Take 1 capsule by mouth daily with food. Vitamin D3 5000 International Units (Pure Encapsulations) Take 1 capsule by mouth daily with food. albuterol HFA (PROAIR HFA) 90 mcg/actuation inhaler Inhale 2 Puffs as instructed every 4 hours as needed. EPINEPHrine (EPIPEN 2-ANDRE) 0.3 mg/0.3 mL auto-injector Inject 0.3 mL intramuscularly as needed (Inject in thigh as needed for anaphylaxis and call 911). GENERIC OKAY gabapentin (NEURONTIN) 300 mg capsule Take 4 capsules by mouth as directed for 180 days. No current facility-administered medications for this visit. I have confirmed and edited as necessary the chief complaint, medications, past medical, family and social histories obtained by others. Objective BP 111/74 Pulse 85 Resp 12 Ht 5' 7" (1.70m) Wt 260 lb 12.8 oz (118.3kg) SpO2 96% BMI 40.84 kg/(m^2). Physical Exam Vitals and nursing note reviewed. Constitutional: General: He is not in acute distress. Appearance: Normal appearance. He is well-developed and well-groomed. HENT: Head: Normocephalic and atraumatic. No masses. Eyes: General: Lids are normal. Extraocular Movements: Extraocular movements intact. Conjunctiva/sclera: Conjunctivae normal. Neck: Thyroid: No thyroid mass or thyromegaly. Trachea: Trachea normal. Cardiovascular: Rate and Rhythm: Normal rate and regular rhythm. Pulses: Normal pulses. Heart sounds: S1 normal and S2 normal. No murmur heard. No friction rub. No gallop. Pulmonary: Effort: Pulmonary effort is normal. Breath sounds: Normal breath sounds. No wheezing, rhonchi or rales. Abdominal: General: Bowel sounds are normal. There is no distension. Palpations: Abdomen is soft. There is no hepatomegaly, splenomegaly, mass or pulsatile mass. Tenderness: There is no abdominal tenderness. Musculoskeletal: Cervical back: Normal, full passive range of motion without pain and neck supple. Thoracic back: Normal. Lumbar back: Normal. Right lower leg: No edema. Left lower leg: No edema. Lymphadenopathy: Cervical: No cervical adenopathy. Skin: General: Skin is warm and dry. Findings: Rash present. No lesion. Rash is macular and papular. Nails: There is no clubbing. Neurological: General: No focal deficit present. Mental Status: He is alert and oriented to person, place, and time. Cranial Nerves: Cranial nerves 2-12 are intact. Gait: Gait is intact. Psychiatric: Attention and Perception: Attention normal. Mood and Affect: Mood and affect normal. Speech: Speech normal. Behavior: Behavior is cooperative. Data Reviewed: Most recent labs ASSESSMENT/PLAN: 1. Eczema, unspecified type - ICD9: 692.9, ICD10: L30.9 (primary diagnosis) - Topical steriod tx with Rx for steriod cream/ointment- see orders - discussed skin care of rash - follow up if symptoms persist or worsen. - TRIAMCINOLONE ACETONIDE 40 MG/ML SUSPENSION FOR INJECTION - CONSULT TO DERMATOLOGY 2. Intractable migraine without status migrainosus, unspecified migraine type - ICD9: 346.91, ICD10: G43.919 - TOPIRAMATE 100 MG TABLET - TOPIRAMATE 50 MG TABLET - GABAPENTIN 300 MG CAPSULE 3. Anxiety and depression - ICD9: 300.00, 311, ICD10: F41.9, F32.A - FLUOXETINE 10 MG CAPSULE Elmira Polo PA-C No follow-ups on file. Discussed the above with the patient using shared decision making. The patient is in agreement with the diagnostic and treatment plans. documented in this encounter [facility] 01-01-2023 Miscellaneous Notes ----- Message from Luh Pressley sent at 01/01/2023 10:45 AM EST ----- Regarding: Medicine / Devon James / has in person visit today 01/01 at 4:20--reuqesting to change to video-same day/time Patient has been identified by name and Date of (Y/N): y Patient: Sam Rai Date of : 1975 Provider for this encounter: Devon James Jr, MD Reason for the call/escalation: has in person visit today 01/01 at 4:20--reuqesting to change to video-same day/time Was Patient Referred to [facility]/Seek Emergency Treatment (Y/N): no Did Patient Agree (Y/N): n/a Was An Attempt Made To Transfer The Patient To The Office (Y/N): yes Were You Able To Reach Someone At The Office (Y/N): no If Yes - Patient Was Transferred To (Caregivers Name): n/a If No - Which [facility] Leadership Napping Machine Operator Did You Speak With Regarding This Patient: n/a Was an appointment scheduled (Y/N): no Reason patient was requesting visit (RFV/signs and symptoms/diagnosis) : has in person visit today 01/01 at 4:20--reuqesting to change to video-same day/time Person calling if other than patient: Sam(spouse) Return call to if other than patient: Sam Best contact number: [phone] Thank you, Luh Pressley January 01, 2023 10:46 AM documented in this encounter [facility] 12-15-2022 Miscellaneous Notes Summary: Knee brace fitting Left vm message to schedule patient for knee brace fitting. Leslee Barrios December 15, 2022 8:52 AM documented in this encounter [facility] 12-08-2022 History of Present illness Narrative Images from the original [place] [address] Date of Evaluation: 12/08/2022 Patient Name: Sam Rai : 1975 Chief Complaint: Patient presents with: URI: Sinus infection and rash on right lower leg seen on 10/05, still having the rash and continues phlegm from sinus infection. Lower back on left side causing pt pain Nursing Intake: There are no exam notes on file for this visit. Subjective HPI Mr. Rai is a 47 year old male who presents with the following complaint(s): Treated for sinus/URI in October. Augmentin/Tessalon. Did improve and now coughing in the morning. Coughing up phlemg. Pressure in sinusitis. Ears itching. Has been using rescute inhaler more. No F/C/body aches. Left lower back pain that started gradually over the past few days. No radiation of pain. No N/T. No urinary sympotms. No N/V. No sore throat. Also c/o rash on right lower leg. Has a h/o eczema. Review of Systems Constitutional: Negative for appetite change, fatigue and fever. HENT: Positive for congestion, ear pain, sinus pressure and sinus pain. Negative for sore throat and trouble swallowing. Eyes: Negative for visual disturbance. Respiratory: Positive for cough. Negative for shortness of breath. Cardiovascular: Negative for chest pain, palpitations and leg swelling. Gastrointestinal: Negative for abdominal pain, constipation, diarrhea, nausea and vomiting. Genitourinary: Negative for difficulty urinating, frequency and urgency. Musculoskeletal: Positive for back pain. Negative for arthralgias, joint swelling and myalgias. Skin: Positive for rash. Neurological: Negative for dizziness, weakness, numbness and headaches. Hematological: Does not bruise/bleed easily. Psychiatric/Behavioral: Negative for confusion and sleep disturbance. The patient is not nervous/anxious. PAST MEDICAL HISTORY Diagnosis Date Acute medial meniscus tear of right knee Anxiety Asthma Contact dermatitis Recurrence not specified. COVID-19 long hauler Depression Diverticulitis GERD (gastroesophageal reflux disease) Insufficiency fracture of tibia Migraines Obesity, morbid, BMI 40.0-49.9 ([facility]) Primary osteoarthritis of right knee Restless legs syndrome (RLS) Sinus infection PAST SURGICAL HISTORY Procedure Laterality Date CARPAL TUNNEL Right CHOLECYSTECTOMY HX in 1999 KNEE SURGERY HX Right scope and tibial transfer ORTHOPEDICS SURGERY HX Right Right Knee PAST SURGICAL HISTORY OF teeth removed TONSILLECTOMY HX FAMILY HISTORY Problem Relation Age of Onset Stroke Mother Lipids Mother Hypertension Mother Obesity Mother Asthma Mother COPD Mother Lipids Father Hypertension Father Alcohol/Drug Father Restless legs syndrome No Family History Obstructive Sleep Apnea No Family History Social History Tobacco Use Smoking status: Never Smokeless tobacco: Never Vaping Use Vaping Use: Never used Substance Use Topics Alcohol use: Yes Comment: < 1/week Drug use: No Comment: No reported history. Current Outpatient Medications Medication Sig Dispense Refill traZODone (DESYREL) 100 mg tablet Take 2 tablets by mouth daily at bedtime. 180 tablet 0 topiramate (TOPAMAX) 100 mg tablet Take one pill at bedtime 90 tablet 1 topiramate (TOPAMAX) 50 mg tablet Take 1 tablet by mouth daily at bedtime. To take along with 100 mg to equal 150 mg at bedtime 90 tablet 1 amoxicillin-clavulanic acid (AUGMENTIN) 875-125 mg per tablet 1 tab twice daily with food 28 tablet 0 benzonatate (TESSALON PERLES) 100 mg capsule 1 - 2 caps up to 3 times daily as needed for cough 36 capsule 0 naproxen (NAPROSYN) 500 mg tablet Take 1 tablet by mouth twice daily as needed (for pain). for pain. Take with food. 50 tablet 0 polyethylene glycol 3350 (MIRALAX) 17 gram/dose powder Take 17 g by mouth as directed. Dissolve dose in 4 - 8 ounces of liquid and take as directed. 289 g 0 docusate sodium (COLACE) 100 mg capsule Take 1 capsule by mouth once daily. 30 capsule 0 ondansetron orally disintegrating (ZOFRAN ODT) 4 mg disintegrating tablet Take 1 tablet by mouth every 8 hours as needed for nausea/vomiting. 15 tablet 0 docusate sodium (COLACE) 100 mg capsule Take 1 capsule by mouth once daily. 30 capsule 0 FLUoxetine (PROZAC) 10 mg capsule Take 2 capsules by mouth once daily. 180 capsule 1 gabapentin (NEURONTIN) 300 mg capsule Take 4 capsules by mouth as directed for 180 days. 360 capsule 1 fluticasone (FLONASE ALLERGY RELIEF) 50 mcg/actuation nasal spray Use 1 [place] in each nostril twice daily. 1 Each 0 cholestyramine-sucrose (QUESTRAN) 4 gram powder Take 2 g by mouth three times daily with meals. 348.6 g 1 hydrOXYzine HCl (ATARAX) 25 mg tablet Take 1 tablet by mouth three times daily as needed for itching/rash. And anxiety 270 tablet 1 alpha lipoic acid-biotin (ALAMAX CR) 600 mg- 450 mcg extended release tablet Take 1 tablet by mouth once daily. SUMAtriptan (IMITREX) 100 mg tablet Take 1 tablet by mouth as needed when migraine headache starts. May repeat in 2 hours if headache continues or returns. Do not exceed 4 tablets in 24 hours. 9 tablet 2 selenium sulfide 2.5 % lotn Apply to eyebrows and davila region twice a week. allow to remain on for 5-10 minutes and rinse. 120 mL 1 Melatonin-SR (Klaire/Prothera) Take 1 capsule (3 mg) one hour before bedtime 1 Bottle Buffered Ascorbic Acid capsules (Pure Encapsulations) - Vitamin C 2 capsules twice a day with or between meals 0 Zinc [place] ([employer]) Take 1 capsule by mouth daily with food. Vitamin D3 5000 International Units (Pure Encapsulations) Take 1 capsule by mouth daily with food. 1 Bottle 1 albuterol HFA (PROAIR HFA) 90 mcg/actuation inhaler Inhale 2 Puffs as instructed every 4 hours as needed. 1 Each 3 EPINEPHrine (EPIPEN 2-ANDRE) 0.3 mg/0.3 mL auto-injector Inject 0.3 mL intramuscularly as needed (Inject in thigh as needed for anaphylaxis and call 911). GENERIC OKAY 2 Each 3 No current facility-administered medications for this visit. I have confirmed and edited as necessary the chief complaint, medications, past medical, family and social histories obtained by others. Objective BP 114/70 Pulse 78 Ht 5' 7" (1.70m) Wt 267 lb (121.1kg) SpO2 97% BMI 41.81 kg/(m^2). Physical Exam Vitals and nursing note reviewed. Constitutional: General: He is not in acute distress. Appearance: Normal appearance. He is well-developed and well-groomed. HENT: Head: Normocephalic and atraumatic. No masses. Eyes: General: Lids are normal. Extraocular Movements: Extraocular movements intact. Conjunctiva/sclera: Conjunctivae normal. Neck: Thyroid: No thyroid mass or thyromegaly. Trachea: Trachea normal. Cardiovascular: Rate and Rhythm: Normal rate and regular rhythm. Pulses: Normal pulses. Heart sounds: S1 normal and S2 normal. No murmur heard. No friction rub. No gallop. Pulmonary: Effort: Pulmonary effort is normal. Breath sounds: Normal breath sounds. No wheezing, rhonchi or rales. Abdominal: General: Bowel sounds are normal. There is no distension. Palpations: Abdomen is soft. There is no hepatomegaly, splenomegaly, mass or pulsatile mass. Tenderness: There is no abdominal tenderness. Musculoskeletal: Cervical back: Normal, full passive range of motion without pain and neck supple. Thoracic back: Normal. Lumbar back: Normal. Right lower leg: No edema. Left lower leg: No edema. Lymphadenopathy: Cervical: No cervical adenopathy. Skin: General: Skin is warm and dry. Findings: No lesion or rash. Nails: There is no clubbing. Neurological: General: No focal deficit present. Mental Status: He is alert and oriented to person, place, and time. Cranial Nerves: Cranial nerves 2-12 are intact. Gait: Gait is intact. Psychiatric: Attention and Perception: Attention normal. Mood and Affect: Mood and affect normal. Speech: Speech normal. Behavior: Behavior is cooperative. ASSESSMENT/PLAN: 1. Moderate asthma, unspecified whether complicated, unspecified whether persistent - ICD9: 493.90, ICD10: J45.909 (primary diagnosis) - Continue current meds - Avoidance of triggers recommended 2. Eczema, unspecified type - ICD9: 692.9, ICD10: L30.9 - Oral Steriod tx -Prednisone taper - discussed skin care of rash - follow up if symptoms persist or worsen. - PREDNISONE 10 MG TABLET 3. Acute left-sided low back pain without sciatica - ICD9: 724.2, ICD10: M54.50 Ice/Heat. Stretches. - PREDNISONE 10 MG TABLET 4. Acute recurrent maxillary sinusitis - ICD9: 461.0, ICD10: J01.01 - Will begin treatment with as per antibiotic as written, see orders - Supportive care with plenty of fluids, rest, and analgesia prn. - AMOXICILLIN 875 MG-POTASSIUM CLAVULANATE 125 MG TABLET - FLUTICASONE PROPIONATE 50 MCG/ACTUATION NASAL SPRAY,SUSPENSION Elmira Polo PA-C No follow-ups on file. Discussed the above with the patient using shared decision making. The patient is in agreement with the diagnostic and treatment plans. documented in this encounter [facility] 11-16-2022 Miscellaneous Notes Patient called requesting the following refill Refill(s) Requested: Requested Prescriptions Pending Prescriptions Disp Refills traZODone (DESYREL) 100 mg tablet 180 tablet 3 Sig: Take 2 tablets by mouth daily at bedtime. ALLERGIES Allergen Reactions Bactrim [Sulfametho* Hives Erythromycin Base Hives, Shortness of Breath Sulfa (Sulfonamide * Unknown (home) [phone] (cell) Last Office Visit Date: 10/05/2022 Last [facility] Visit: Visit date not found Future Appointment: 12/02/2022 The patients preferred pharmacy has been captured for this encounter? yes Request is for script(s) to be escript to pharmacy. Brandon Belle Ma documented in this encounter [facility] 10-05-2022 History of Present illness Narrative Images from the original note were not included. Devon James Jr., M.D. [facility] [address] [address] Date of Evaluation: 10/05/2022 Patient Name: Sam Rai : 1975 Chief Complaint: Patient presents with: Yearly Exam Nursing Intake: There are no exam notes on file for this visit. Subjective Mr. Rai is a 46 year old male who presents with the following complaint(s): HPI Pt is here to get his Topamax renewed; currently taking both one 100 mg and one 50 mg tablet daily. Over the past 2 weeks, pt has had a persistent cough productive of yellow-prasad phlegm, worse in the morning than at night. Also has noted discomfort behind his forehead and thinks he may have sinus or bronchitis or both. Review of Systems Constitutional: Negative for fever and weight loss. HENT: Positive for congestion and sinus pain. Negative for ear pain and nosebleeds. Eyes: Negative for blurred vision and double vision. Respiratory: Positive for cough and sputum production. Negative for shortness of breath. Cardiovascular: Negative for chest pain and palpitations. Gastrointestinal: Negative for abdominal pain and heartburn. Genitourinary: Negative for dysuria and frequency. Musculoskeletal: Negative for back pain, joint pain and myalgias. Skin: Negative for itching and rash. Neurological: Positive for headaches. Negative for dizziness and focal weakness. Psychiatric/Behavioral: Negative for depression. The patient is not nervous/anxious. PAST MEDICAL HISTORY Diagnosis Date Acute medial meniscus tear of right knee Anxiety Asthma Contact dermatitis Recurrence not specified. COVID-19 long hauler Depression Diverticulitis GERD (gastroesophageal reflux disease) Insufficiency fracture of tibia Migraines Obesity, morbid, BMI 40.0-49.9 ([facility]) Primary osteoarthritis of right knee Restless legs syndrome (RLS) Sinus infection PAST SURGICAL HISTORY Procedure Laterality Date CARPAL TUNNEL Right CHOLECYSTECTOMY HX in 1999 KNEE SURGERY HX Right scope and tibial transfer ORTHOPEDICS SURGERY HX Right Right Knee PAST SURGICAL HISTORY OF teeth removed TONSILLECTOMY HX FAMILY HISTORY Problem Relation Age of Onset Stroke Mother Lipids Mother Hypertension Mother Obesity Mother Asthma Mother COPD Mother Lipids Father Hypertension Father Alcohol/Drug Father Restless legs syndrome No Family History Obstructive Sleep Apnea No Family History Social History Tobacco Use Smoking status: Never Smokeless tobacco: Never Vaping Use Vaping Use: Never used Substance Use Topics Alcohol use: Yes Comment: < 1/week Drug use: No Comment: No reported history. Current Meds naproxen (NAPROSYN) 500 mg tablet Take 1 tablet by mouth twice daily as needed (for pain). for pain. Take with food. docusate sodium (COLACE) 100 mg capsule Take 1 capsule by mouth once daily. ondansetron orally disintegrating (ZOFRAN ODT) 4 mg disintegrating tablet Take 1 tablet by mouth every 8 hours as needed for nausea/vomiting. docusate sodium (COLACE) 100 mg capsule Take 1 capsule by mouth once daily. FLUoxetine (PROZAC) 10 mg capsule Take 2 capsules by mouth once daily. gabapentin (NEURONTIN) 300 mg capsule Take 4 capsules by mouth as directed for 180 days. fluticasone (FLONASE ALLERGY RELIEF) 50 mcg/actuation nasal spray Use 1 Holton in each nostril twice daily. cholestyramine-sucrose (QUESTRAN) 4 gram powder Take 2 g by mouth three times daily with meals. traZODone (DESYREL) 100 mg tablet Take 2 tablets by mouth daily at bedtime. hydrOXYzine HCl (ATARAX) 25 mg tablet Take 1 tablet by mouth three times daily as needed for itching/rash. And anxiety alpha lipoic acid-biotin (ALAMAX CR) 600 mg- 450 mcg extended release tablet Take 1 tablet by mouth once daily. SUMAtriptan (IMITREX) 100 mg tablet Take 1 tablet by mouth as needed when migraine headache starts. May repeat in 2 hours if headache continues or returns. Do not exceed 4 tablets in 24 hours. selenium sulfide 2.5 % lotn Apply to eyebrows and davila region twice a week. allow to remain on for 5-10 minutes and rinse. Melatonin-SR (Klaire/Prothera) Take 1 capsule (3 mg) one hour before bedtime Buffered Ascorbic Acid capsules (Pure Encapsulations) - Vitamin C 2 capsules twice a day with or between meals Zinc [place] ([employer]) Take 1 capsule by mouth daily with food. Vitamin D3 5000 International Units (Pure Encapsulations) Take 1 capsule by mouth daily with food. albuterol HFA (PROAIR HFA) 90 mcg/actuation inhaler Inhale 2 Puffs as instructed every 4 hours as needed. EPINEPHrine (EPIPEN 2-ANDRE) 0.3 mg/0.3 mL auto-injector Inject 0.3 mL intramuscularly as needed (Inject in thigh as needed for anaphylaxis and call 911). GENERIC OKAY topiramate (TOPAMAX) 100 mg tablet Take one pill at bedtime topiramate (TOPAMAX) 50 mg tablet Take 1 tablet by mouth daily at bedtime. To take along with 100 mg to equal 150 mg at bedtime amoxicillin-clavulanic acid (AUGMENTIN) 875-125 mg per tablet 1 tab twice daily with food benzonatate (TESSALON PERLES) 100 mg capsule 1 - 2 caps up to 3 times daily as needed for cough polyethylene glycol 3350 (MIRALAX) 17 gram/dose powder Take 17 g by mouth as directed. Dissolve dose in 4 - 8 ounces of liquid and take as directed. (Patient not taking: Reported on 10/05/2022) I have confirmed and edited as necessary the chief complaint, medications, past medical, family and social histories obtained by others. Objective BP 124/83 Pulse 84 Ht 5' 7" (1.70m) Wt 261 lb 6.4 oz (118.6kg) SpO2 98% BMI 40.93 kg/(m^2). Physical Exam Vitals and nursing note reviewed. HENT: Head: Normocephalic. Comments: Tender to percussion over the frontal sinus Right Ear: External ear normal. Left Ear: External ear normal. Eyes: Pupils: Pupils are equal, round, and reactive to light. Cardiovascular: Rate and Rhythm: Normal rate and regular rhythm. Heart sounds: Normal heart sounds. Pulmonary: Effort: Pulmonary effort is normal. Breath sounds: Rhonchi present. Abdominal: General: Bowel sounds are normal. Palpations: Abdomen is soft. There is no mass. Musculoskeletal: General: No tenderness. Normal range of motion. Cervical back: Normal range of motion and neck supple. Lymphadenopathy: Cervical: No cervical adenopathy. Skin: General: Skin is warm and dry. Neurological: Mental Status: He is alert and oriented to person, place, and time. Gait: Gait is intact. Deep Tendon Reflexes: Reflexes are normal and symmetric. Psychiatric: Mood and Affect: Mood and affect normal. Return in about 6 months (around 04/05/2023). The above diagnoses & plan of care have been created and agreed upon with the patient. This note was partially generated using [employer] voice recognition system, and there may be some incorrect words, spellings, and punctuation that were not noted in checking the note before saving. documented in this encounter [facility] 09-01-2022 Miscellaneous Notes 09/01/22 6:20 pm I saw pt's note and request of 08/31 and I note he did go to where his covid + state was confirmed. He "feels terrible" and has productive cough of yellow-prasad phlegm but was "given nothing" for his symptoms and referred back to his PCP. Today is his 4th day of symptoms and he would like meds called into the 24 hour [facility] at [address] He has previously done well with Augmentin for bronchitisl Plan: 1 - Paxlovid, regular dosepack, take as directed 2 - Benzonatate perles 100 mg #36 1-2 by mouth up to 3 times daily as needed for cough. 3 - Augmentin 875 mg #20 1 tab twice daily with food Discussed diagnoses, use of all meds as above, and follow up per scheduled apt if symptoms persist or other issues need updating. Devon James Jr, MD Patient advised. Verbalized understanding, no further questions or concerns. I usually see the patient at least virtually of they have COVID and requesting by Flovent. I believe he should either wait for Dr. James or go to urgent care or find a virtual visit with a virtualist Please review and advise, patient calling again. No response from PCP Patient calling today saying he tested positive for covid today, symptoms started 3 days ago. Patients wants anti virl, please review and advise documented in this encounter [facility] 08-25-2022 Miscellaneous Notes 48 Hour Holter Monitor applied and explained to patient with verbalized understanding. documented in this encounter [facility] 08-25-2022 Miscellaneous Notes Radiology Service Progress Note PATIENT NAME: Sam Rai DATE OF SERVICE: August 25, 2022 TIME: 1:23 PM PATIENT IDENTITY VERIFICATION COMPLETED USING TWO (2) IDENTIFIERS: Name and Date of confirmed by patient verbally. FALL SCREENING: Has the patient had 2 falls in the last year or 1 fall with injury or currently using an Ambulatory Assistive Device (Walker, Cane, Wheelchair, Crutches, etc.)? No PATIENT GENDER DATA: Male PATIENT RELEVANT IMPLANT DATA REVIEWED: Not Applicable RADIOLOGY DEPARTMENT: Ultrasound PERIPHERAL IV DATA: Not applicable SIGNED BY: RT Zaida(R) August 25, 2022 1:23 PM documented in this encounter [facility] 08-18-2022 History of Present illness Narrative HPI: Sam Rai is a 46 year old male whose complaint is documented in pain description below. Patient is here for rt knee contusion. Injured at work.Near syncope/syncope while walking from work station, fell onto knee. Seen in ED 08/12/22. When he attempted to get up to walk to car for trip to hospital, had significant pain over 'everywhere'. Was very swollen, difficult to bend it, has improved a bit. The swelling is decreased; Pain from anterior knee, down the carter (from area he had surgery before); and pain in the back of the knee with flexion. Unable to describe the mechanism of the injury-passed out, or got very lightheaded, and went down. Not sure how this impacted, or injured knee. Using home sewing machine is very painful-using the pedal up and down. Using APAP, ice, elevation; not getting any meaningful pain meds from ED. 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 Last seen 07/02/22 with steroid injection. Euflexxa last injection 03/09/22. Left knee is increasingly sore after the fall at work. Its the usual level of pain, nothing particularly different than usual. Was initially more painful, but has returned to baseline at this stage. Is much less painful than the right knee. PAIN EVALUATION 08/18/2022 1006 Pain Level: 8 Description: Sharp;Throbbing Duration Amount of Time: 6 Duration Units: Days Frequency: Continuous Intervention/Comfort measure: Reposition;Relaxation;Medication;C old PAST MEDICAL HISTORY Diagnosis Date Acute medial meniscus tear of right knee Anxiety Asthma Contact dermatitis Recurrence not specified. COVID-19 long hauler Depression Diverticulitis GERD (gastroesophageal reflux disease) Insufficiency fracture of tibia Migraines Obesity, morbid, BMI 40.0-49.9 ([facility]) Primary osteoarthritis of right knee Restless legs syndrome (RLS) Sinus infection PAST SURGICAL HISTORY Procedure Laterality Date CARPAL TUNNEL Right CHOLECYSTECTOMY HX in 1999 KNEE SURGERY HX Right scope and tibial transfer ORTHOPEDICS SURGERY HX Right Right Knee PAST SURGICAL HISTORY OF teeth removed TONSILLECTOMY HX Social History Tobacco Use Smoking status: Never Smokeless tobacco: Never Vaping Use Vaping Use: Never used Substance Use Topics Alcohol use: Yes Comment: < 1/week Drug use: No Comment: No reported history. Current Outpatient Medications Medication Sig amoxicillin-clavulanic acid (AUGMENTIN) 875-125 mg per tablet Take 1 tablet by mouth twice daily for 10 days. polyethylene glycol 3350 (MIRALAX) 17 gram/dose powder Take 17 g by mouth as directed. Dissolve dose in 4 - 8 ounces of liquid and take as directed. docusate sodium (COLACE) 100 mg capsule Take 1 capsule by mouth once daily. ondansetron orally disintegrating (ZOFRAN ODT) 4 mg disintegrating tablet Take 1 tablet by mouth every 8 hours as needed for nausea/vomiting. docusate sodium (COLACE) 100 mg capsule Take 1 capsule by mouth once daily. FLUoxetine (PROZAC) 10 mg capsule Take 2 capsules by mouth once daily. gabapentin (NEURONTIN) 300 mg capsule Take 4 capsules by mouth as directed for 180 days. fluticasone (FLONASE ALLERGY RELIEF) 50 mcg/actuation nasal spray Use 1 Holton in each nostril twice daily. cholestyramine-sucrose (QUESTRAN) 4 gram powder Take 2 g by mouth three times daily with meals. traZODone (DESYREL) 100 mg tablet Take 2 tablets by mouth daily at bedtime. topiramate (TOPAMAX) 100 mg tablet Take one pill at bedtime topiramate (TOPAMAX) 50 mg tablet Take 1 tablet by mouth daily at bedtime. To take along with 100 mg to equal 150 mg at bedtime acyclovir (ZOVIRAX) 800 mg tablet Take one tablet by mouth 5 times a day as needed hydrOXYzine HCl (ATARAX) 25 mg tablet Take 1 tablet by mouth three times daily as needed for itching/rash. And anxiety alpha lipoic acid-biotin (ALAMAX CR) 600 mg- 450 mcg extended release tablet Take 1 tablet by mouth once daily. SUMAtriptan (IMITREX) 100 mg tablet Take 1 tablet by mouth as needed when migraine headache starts. May repeat in 2 hours if headache continues or returns. Do not exceed 4 tablets in 24 hours. selenium sulfide 2.5 % lotn Apply to eyebrows and davila region twice a week. allow to remain on for 5-10 minutes and rinse. Melatonin-SR (Klaire/Prothera) Take 1 capsule (3 mg) one hour before bedtime Buffered Ascorbic Acid capsules (Pure Encapsulations) - Vitamin C 2 capsules twice a day with or between meals Zinc [place] ([employer]) Take 1 capsule by mouth daily with food. Vitamin D3 5000 International Units (Pure Encapsulations) Take 1 capsule by mouth daily with food. albuterol HFA (PROAIR HFA) 90 mcg/actuation inhaler Inhale 2 Puffs as instructed every 4 hours as needed. EPINEPHrine (EPIPEN 2-ANDRE) 0.3 mg/0.3 mL auto-injector Inject 0.3 mL intramuscularly as needed (Inject in thigh as needed for anaphylaxis and call 911). GENERIC OKAY HYDROcodone-acetaminophen (NORCO) 5-325 mg per tablet Take 1 tablet by mouth every 8 hours as needed for pain for up to 5 days. naproxen (NAPROSYN) 500 mg tablet Take 1 tablet by mouth twice daily as needed (for pain). for pain. Take with food. Current Facility-Administered Medications Medication Dose Route Frequency sodium chloride 0.9 % (flush) 10 mL (BD POSIFLUSH) 10 mL INTRAVENOUS DIRECTED PRN ALLERGIES Allergen Reactions Bactrim [Sulfametho* Hives Erythromycin Base Hives, Shortness of Breath Sulfa (Sulfonamide * Unknown Resp 18 Ht 5' 7" (1.70m) Wt 268 lb (121.6kg) BMI 41.96 kg/(m^2). Exam: Gen: Pt is a overweight male in NAD Gait: Limping right leg, unable to do 2 leg squat with right leg-walking with straight leg/streaking on right Right knee: Healed anterior surgical scars. Full extension, flexion to approximately 95 -100 degrees. 3+ effusion present. Significant tenderness palpation about the medial patella, significant tenderness palpation of the lateral femoral condyle. Stable ligamentous exam negative Jeremi's. Lt knee: healed anterior scar, valgus alignment; no effusion, full ROM; TTP lateral joint line Vascular: trace LE edema Neuro: sensation slightly decreased RLE below the knee rt side; sensation over the rt thigh normal; LE reflexes equal and symmetric Medical Decision Making Data I have reviewed the following data in process of medical decision making: External note from other physician and Independent review of xray images ASSESSMENT: (S80.01XA) Contusion of right knee, initial encounter (primary encounter diagnosis) (S83.004A) Patellar dislocation, right, initial encounter Add dx of patellar dislocation to [facility] clain PLAN: Medical Decision Risks I have discussed the risks and benefits of the following treatments with patient today: Advanced imaging, Physical therapy intervention, and Home exercise intervention Add knee brace today for stability/pain relief MRI right knee to document diagnosis-expect patellar dislocation C9 for MRI, and physical therapy referral. In the meantime patient instructed on quad sets and heel slides for home, 2 sets of 10 daily. Return to work note with restriction in activity-only able to perform seated work. Patient able to walk short distances with knee brace on. Unable to return to work in standing capacity, able to return to work in seated capacity and able to use upper extremities without restriction. Small dose of hydrocodone, naproxen for longer term pain relief, continue icing the knee. Return for in Office Follow Up after MRI. Part of this note has been created using voice recognition software. It may contain errors which are inherent in voice-recognition technology. Tre Serrano MD documented in this encounter [facility] 08-18-2022 Miscellaneous Notes PHYSICAL THERAPY Referral place through the [facility] Portal on August 18, 2022. #[id number] Preferred Provider XXX Neha Velarde Cma documented in this encounter [facility] 08-14-2022 Instructions Avelina Matias MD - 08/14/2022 8:43 AM EDT ASSESSMENT/PLAN: 1. Syncope, unspecified syncope type - ICD9: 780.2, ICD10: R55 (primary diagnosis) Patient had syncope or near syncope at work. Likely dehydration or hypotension/vasovagal. Patient was standing for an hour and a half before he felt this way and he was turning around quickly. Today on physical exam he had nystagmus and Jose-Hallpike maneuver was positive to the left. I suspect BPPV but I could not rule out carotid stenosis or arrhythmia. I discussed with the patient that I would refer to physical therapy for BPPV and will get a Holter monitor and ultrasound of the carotids. - CONSULT TO PHYSICAL THERAPY (AG) - HOLTER MONITOR 48 HOUR - US CAROTID BILAT 2. Benign paroxysmal positional vertigo of left ear - ICD9: 386.11, ICD10: H81.12 As above - CONSULT TO PHYSICAL THERAPY (AG) 3. Injury of right knee, subsequent encounter - ICD9: V58.89, 959.7, ICD10: S89.91XD The injury to the night knee when he landed on his knees will be addressed by Dr. Serrano 4. Chronic pain of left knee - ICD9: 719.46, 338.29, ICD10: M25.562, G89.[address] Brewster for chronic knee pain 5. Diarrhea, unspecified type - ICD9: 787.91, ICD10: R19.7 Diarrhea or loose stool. Patient had [id number] Augmentin and he is still on it. I suggested probiotic. Avelina Matias MD documented in this encounter [facility] 08-14-2022 History of Present illness Narrative Visit Date: August 14, 2022 Mr.Kevin Campbell Rai Date of : 1975 MRN/E #: [id number] Chief Complaint Patient presents with: ED Follow Up History of present illness Sam Rai is a 46 year old male. HPI Patient is here today for follow-up on ER visit. As mentioned in the ER note and as the patient story he was standing up at work the morning of 08/12/2022 where he got to work at 4:30 in the morning and at 6 AM he was trying to go to the bathroom and he turned around quickly and he was feeling dizzy without vertigo. He fell on the ground on both knees and he knew he is going to fall. He did not lose consciousness but he was not very alert as he states. He was seeing people hovering over him. He was taken to the emergency room and he was evaluated with blood work and CT scan of the brain and right knee x-ray without major findings. The night before he went to work he took [place] for abdominal pain and he took his usual dose of gabapentin which is 1200 mg at bedtime for restless leg syndrome. On top of 200 mg of trazodone. He is not on any blood pressure medications. Patient is finishing a course of Augmentin for left-sided abdominal pain. He also had another course of Augmentin around the beginning of June for sinus pain. He still have some diarrhea/loose stool. He is not on any probiotic As of today patient feels very tired. His only concern is the right knee pain for which she is seeing orthopedic in about week and a half. PAIN EVALUATION No data found in the last 1 encounters. ALLERGIES Allergen Reactions Bactrim [Sulfametho* Hives Erythromycin Base Hives, Shortness of Breath Sulfa (Sulfonamide * Unknown PAST MEDICAL HISTORY Diagnosis Date Acute medial meniscus tear of right knee Anxiety Asthma Contact dermatitis Recurrence not specified. COVID-19 long hauler Depression Diverticulitis GERD (gastroesophageal reflux disease) Insufficiency fracture of tibia Migraines Obesity, morbid, BMI 40.0-49.9 ([facility]) Primary osteoarthritis of right knee Restless legs syndrome (RLS) Sinus infection PAST SURGICAL HISTORY Procedure Laterality Date CARPAL TUNNEL Right CHOLECYSTECTOMY HX in 1999 KNEE SURGERY HX Right scope and tibial transfer ORTHOPEDICS SURGERY HX Right Right Knee PAST SURGICAL HISTORY OF teeth removed TONSILLECTOMY HX Social History Tobacco Use Smoking status: Never Smokeless tobacco: Never Vaping Use Vaping Use: Never used Substance Use Topics Alcohol use: Yes Comment: < 1/week Drug use: No Comment: No reported history. FAMILY HISTORY Problem Relation Age of Onset Stroke Mother Lipids Mother Hypertension Mother Obesity Mother Asthma Mother COPD Mother Lipids Father Hypertension Father Alcohol/Drug Father Restless legs syndrome No Family History Obstructive Sleep Apnea No Family History Review of Systems Constitutional: Positive for malaise/fatigue. Negative for chills, fever and weight loss. HENT: Negative for congestion, ear discharge, ear pain, sinus pain and sore throat. Eyes: Negative for blurred vision, double vision and pain. Respiratory: Negative for cough, sputum production, shortness of breath and wheezing. Cardiovascular: Negative for chest pain, palpitations, orthopnea, leg swelling and PND. Gastrointestinal: Negative for abdominal pain, blood in stool, constipation, diarrhea, heartburn, melena, nausea and vomiting. Genitourinary: Negative for dysuria, frequency, hematuria and urgency. Musculoskeletal: Positive for joint pain. Negative for back pain and myalgias. Bilateral knee pain Neurological: Negative for dizziness, tingling, tremors, sensory change, speech change, focal weakness, seizures, loss of consciousness, weakness and headaches. Psychiatric/Behavioral: Negative for depression, substance abuse and suicidal ideas. The patient is not nervous/anxious. Physical Exam Constitutional: General: He is not in acute distress. Appearance: Normal appearance. He is not ill-appearing. HENT: Head: Normocephalic and atraumatic. Right Ear: Tympanic membrane, ear canal and external ear normal. Left Ear: Tympanic membrane, ear canal and external ear normal. Nose: Nose normal. Mouth/Throat: Mouth: Mucous membranes are dry. Pharynx: Oropharynx is clear. Eyes: Conjunctiva/sclera: Conjunctivae normal. Pupils: Pupils are equal, round, and reactive to light. Neck: Vascular: No carotid bruit. Cardiovascular: Rate and Rhythm: Normal rate and regular rhythm. Heart sounds: Normal heart sounds. No murmur heard. Pulmonary: Effort: Pulmonary effort is normal. No respiratory distress. Breath sounds: Normal breath sounds. No stridor. No wheezing, rhonchi or rales. Musculoskeletal: General: No swelling or tenderness. Normal range of motion. Cervical back: Normal range of motion and neck supple. No rigidity or tenderness. Comments: Patient is walking with a limp because of the pain in the right knee. Lymphadenopathy: Cervical: No cervical adenopathy. Skin: General: Skin is warm. Coloration: Skin is not jaundiced or pale. Neurological: General: No focal deficit present. Mental Status: He is alert and oriented to person, place, and time. Comments: Neurologic exam was grossly unremarkable except for nystagmus on both sides and its horizontal. Jose-Hallpike maneuver is positive on the left. Psychiatric: Mood and Affect: Affect normal. Cognition and Memory: Memory normal. Judgment: Judgment normal. There were no vitals taken for this visit. Labs and Imaging: Component Latest Ref Rng & Units 08/01/2022 08/05/2022 08/06/2022 08/12/2022 WBC 3.70 - 11.00 k/uL 7.58 6.93 6.05 RBC 4.20 - 6.00 m/uL 4.90 4.71 4.45 Hemoglobin 13.0 - 17.0 g/dL 13.8 13.1 12.9 (L) Hematocrit 39.0 - 51.0 % 41.4 39.1 37.5 (L) MCV 80.0 - 100.0 fL 84.5 83.0 84.3 MCH 26.0 - 34.0 pg 28.2 27.8 29.0 MCHC 30.5 - 36.0 g/dL 33.3 33.5 34.4 RDW-CV 11.5 - 15.0 % 13.6 13.6 13.8 Platelet Count 150 - 400 k/uL 312 332 319 MPV 9.0 - 12.7 fL 8.9 (L) 9.4 9.8 Neut% % 62.9 49.3 Abs Neut (ANC) 1.45 - 7.50 k/uL 4.77 3.42 Lymph% % 25.5 36.7 Abs Lymph 1.00 - 4.00 k/uL 1.93 2.54 Sargent% % 8.7 9.7 Abs Sargent <0.87 k/uL 0.66 0.67 Eosin% % 2.5 3.5 Abs Eosin <0.46 k/uL 0.19 0.24 Baso% % 0.3 0.7 Abs Baso <0.11 k/uL <0.03 0.05 Immature Gran % % 0.1 0.1 IMMATURE GRANS (ABS) <0.10 k/uL <0.03 <0.03 NRBC /100 WBC 0.0 Absolute nRBC <0.01 k/uL <0.01 <0.01 DTYPE Auto Auto Protein, Total 6.3 - 8.0 g/dL 6.8 6.5 Albumin 3.9 - 4.9 g/dL 3.5 4.1 Calcium 8.5 - 10.2 mg/dL 8.2 (L) 8.7 8.0 (L) Bilirubin, Total 0.2 - 1.3 mg/dL 0.3 0.2 Alkaline Phosphatase 38 - 113 U/L 109 115 (H) AST 14 - 40 U/L 22 18 ALT 10 - 54 U/L 52 33 Glucose 74 - 99 mg/dL 121 (H) 113 (H) 119 (H) BUN 9 - 24 mg/dL 8 6 (L) 7 (L) Creatinine 0.73 - 1.22 mg/dL 0.77 0.90 0.86 Sodium 136 - 144 mmol/L 136 137 138 Potassium 3.7 - 5.1 mmol/L 3.5 3.3 (L) 3.7 Chloride 97 - 105 mmol/L 105 103 106 (H) CO2 22 - 30 mmol/L 24 22 20 (L) Anion Gap 9 - 18 mmol/L 7 (L) 12 12 eGFR >=60 mL/min/1.73m 113 107 109 Lipase 16 - 61 U/L 18 Lactate (POCT) 0.5 - 2.0 mmol/L 1.0 ASSESSMENT/PLAN: 1. Syncope, unspecified syncope type - ICD9: 780.2, ICD10: R55 (primary diagnosis) Patient had syncope or near syncope at work. Likely dehydration or hypotension/vasovagal. Patient was standing for an hour and a half before he felt this way and he was turning around quickly. Today on physical exam he had nystagmus and Jose-Hallpike maneuver was positive to the left. I suspect BPPV but I could not rule out carotid stenosis or arrhythmia. I discussed with the patient that I would refer to physical therapy for BPPV and will get a Holter monitor and ultrasound of the carotids. - CONSULT TO PHYSICAL THERAPY (AG) - HOLTER MONITOR 48 HOUR - US CAROTID BILAT 2. Benign paroxysmal positional vertigo of left ear - ICD9: 386.11, ICD10: H81.12 As above - CONSULT TO PHYSICAL THERAPY (AG) 3. Injury of right knee, subsequent encounter - ICD9: V58.89, 959.7, ICD10: S89.91XD The injury to the night knee when he landed on his knees will be addressed by Dr. Serrano 4. Chronic pain of left knee - ICD9: 719.46, 338.29, ICD10: M25.562, G89.[address] Brewster for chronic knee pain 5. Diarrhea, unspecified type - ICD9: 787.91, ICD10: R19.7 Diarrhea or loose stool. Patient had [id number] Augmentin and he is still on it. I suggested probiotic. Avelina Matias MD documented in this encounter [facility] 08-13-2022 Miscellaneous Notes Summary: B/L Knees Informing Dr. Serrano of injury at work to R knee, but patient's desire to be treated for B/L knees at next appointment. Leslee Barrios August 13, 2022 4:18 PM Summary: B/L Knees Scheduled w/Dr. Serrano on 08/21. Leslee Barrios August 13, 2022 3:46 PM ----- Message from Madelaine Mathews sent at 08/13/2022 2:04 PM EDT ----- Regarding: FW: Orthopedics / Open Knee: Pain / Recent ED Visit ----- Message ----- From: Ruby Petit Sent: 08/13/2022 12:26 PM EDT To: Ortho Triage Pool Subject: Orthopedics / Open Knee: Pain / Recent ED Vi# Patient has been identified by name and Date of (Y/N): Y Patient: Sam Rai Date of : 1975 Previous Provider Seen: Lear Body Part(s) Identified: leila knee Diagnosis/Reason For Visit: pain of both knees Reason for the call/escalation: er follow up- patient says any location next available If reason for call/escalation is discharge from ED/ER or Hospital, which facility was the patient seen at: [facility] Was an appointment scheduled (Y/N): n/a Person calling if other than patient: Sam- Return call to if other than patient: Sam Freddy contact number: [phone] Thank you, Ruby Petit August 13, 2022 12:24 PM ----- Message from Ruby Petit sent at 08/13/2022 12:24 PM EDT ----- Regarding: Orthopedics / Open Knee: Pain / Recent ED Visit Patient has been identified by name and Date of (Y/N): Y Patient: Sam Rai Date of : 1975 Previous Provider Seen: Lear Body Part(s) Identified: leila knee Diagnosis/Reason For Visit: pain of both knees Reason for the call/escalation: er follow up- patient says any location next available If reason for call/escalation is discharge from ED/ER or Hospital, which facility was the patient seen at: [facility] Was an appointment scheduled (Y/N): n/a Person calling if other than patient: Sam- Return call to if other than patient: Sam Best contact number: [phone] Thank you, Ruby Petit August 13, 2022 12:24 PM documented in this encounter [facility] 08-11-2022 Miscellaneous Notes GASTROENTEROLOGY Referral place through the [facility] Portal on August 11, 2022. #[id number] Preferred Provider Dr. HARPREET Velarde Cma documented in this encounter [facility] 08-10-2022 Instructions Lina Duarte APRN.CNP - 08/10/2022 2:01 PM EDT ASSESSMENT/PLAN: 1. Left sided abdominal pain - ICD9: 789.09, ICD10: R10.9 (primary diagnosis) - CONSULT TO GASTROENTEROLOGY - AMOXICILLIN 875 MG-POTASSIUM CLAVULANATE 125 MG TABLET 2. Nausea - ICD9: 787.02, ICD10: R11.0 - CONSULT TO GASTROENTEROLOGY 3. Colon cancer screening - ICD9: V76.51, ICD10: Z12.11 - CONSULT TO GASTROENTEROLOGY 4. Bowel habit changes - ICD9: 787.99, ICD10: R19.4 - CONSULT TO GASTROENTEROLOGY 5. Diverticulosis - ICD9: 562.10, ICD10: K57.90 - CONSULT TO GASTROENTEROLOGY - AMOXICILLIN 875 MG-POTASSIUM CLAVULANATE 125 MG TABLET Lina Duarte APRN.MARILEE documented in this encounter [facility] 08-10-2022 History of Present illness Narrative Sam Rai is a 46 year old male who presents for ED Follow-up Here for follow up on multiple ER and hospital admission for abdominal pain. Referred by hospital to a gastro specialist, family is helping him get scheduled. No family history of colon cancer. 08-06-2022:CT abdomen: IMPRESSION: Few colonic diverticuli, without active inflammatory change. Bilateral nephrolithiasis, without hydronephrosis. Returned to the hospital 2nd time due to constipation - he was taking all meds as directed. He is on miralax and stool softner now. Last BM yesterday. Normal for him is 1-2 a day. Still has left sided abdominal pain. He feels exactly like it was diverticulitis in the past but CT imaging not showing, we will try antibiotics to see if symptoms improve. The history is provided by the patient. No case assistant was used. Last 3 Encounter BP Readings: Date: BP: 08/10/2022 101/69 08/05/2022 108/73 08/01/2022 138/74 Last 2 Encounter Wt Readings: Date: Wt: 08/10/2022 120.2 kg (265 lb) 08/05/2022 122 kg (269 lb) BP 101/69 Pulse 91 Temp 99 Resp 18 Ht 5' 7" (1.70m) Wt 265 lb (120.2kg) SpO2 97% BMI 41.50 kg/(m^2). PAST MEDICAL HISTORY Diagnosis Date Acute medial meniscus tear of right knee Anxiety Asthma Contact dermatitis Recurrence not specified. COVID-19 long hauler Depression Diverticulitis GERD (gastroesophageal reflux disease) Insufficiency fracture of tibia Migraines Obesity, morbid, BMI 40.0-49.9 ([facility]) Primary osteoarthritis of right knee Restless legs syndrome (RLS) Sinus infection PAST SURGICAL HISTORY Procedure Laterality Date CARPAL TUNNEL Right CHOLECYSTECTOMY HX in 1999 KNEE SURGERY HX Right scope and tibial transfer ORTHOPEDICS SURGERY HX Right Right Knee PAST SURGICAL HISTORY OF teeth removed TONSILLECTOMY HX Social History Tobacco Use Smoking status: Never Smokeless tobacco: Never Vaping Use Vaping Use: Never used Substance Use Topics Alcohol use: Yes Comment: < 1/week Drug use: No Comment: No reported history. Family history reviewed. ALLERGIES Allergen Reactions Bactrim [Sulfametho* Hives Erythromycin Base Hives, Shortness of Breath Sulfa (Sulfonamide * Unknown Current Outpatient Medications Medication Sig polyethylene glycol 3350 (MIRALAX) 17 gram/dose powder Take 17 g by mouth as directed. Dissolve dose in 4 - 8 ounces of liquid and take as directed. docusate sodium (COLACE) 100 mg capsule Take 1 capsule by mouth once daily. HYDROcodone-acetaminophen (NORCO) 5-325 mg per tablet Take 1 tablet by mouth every 6 hours as needed for pain. ondansetron orally disintegrating (ZOFRAN ODT) 4 mg disintegrating tablet Take 1 tablet by mouth every 8 hours as needed for nausea/vomiting. FLUoxetine (PROZAC) 10 mg capsule Take 2 capsules by mouth once daily. gabapentin (NEURONTIN) 300 mg capsule Take 4 capsules by mouth as directed for 180 days. fluticasone (FLONASE ALLERGY RELIEF) 50 mcg/actuation nasal spray Use 1 Holton in each nostril twice daily. cholestyramine-sucrose (QUESTRAN) 4 gram powder Take 2 g by mouth three times daily with meals. traZODone (DESYREL) 100 mg tablet Take 2 tablets by mouth daily at bedtime. topiramate (TOPAMAX) 100 mg tablet Take one pill at bedtime topiramate (TOPAMAX) 50 mg tablet Take 1 tablet by mouth daily at bedtime. To take along with 100 mg to equal 150 mg at bedtime acyclovir (ZOVIRAX) 800 mg tablet Take one tablet by mouth 5 times a day as needed hydrOXYzine HCl (ATARAX) 25 mg tablet Take 1 tablet by mouth three times daily as needed for itching/rash. And anxiety alpha lipoic acid-biotin (ALAMAX CR) 600 mg- 450 mcg extended release tablet Take 1 tablet by mouth once daily. SUMAtriptan (IMITREX) 100 mg tablet Take 1 tablet by mouth as needed when migraine headache starts. May repeat in 2 hours if headache continues or returns. Do not exceed 4 tablets in 24 hours. selenium sulfide 2.5 % lotn Apply to eyebrows and davila region twice a week. allow to remain on for 5-10 minutes and rinse. ibuprofen (MOTRIN) 800 mg tablet Take 1 tablet by mouth every 8 hours as needed for pain. Melatonin-SR (Klaire/Prothera) Take 1 capsule (3 mg) one hour before bedtime Buffered Ascorbic Acid capsules (Pure Encapsulations) - Vitamin C 2 capsules twice a day with or between meals Zinc [place] ([employer]) Take 1 capsule by mouth daily with food. Vitamin D3 5000 International Units (Pure Encapsulations) Take 1 capsule by mouth daily with food. albuterol HFA (PROAIR HFA) 90 mcg/actuation inhaler Inhale 2 Puffs as instructed every 4 hours as needed. EPINEPHrine (EPIPEN 2-ANDRE) 0.3 mg/0.3 mL auto-injector Inject 0.3 mL intramuscularly as needed (Inject in thigh as needed for anaphylaxis and call 911). GENERIC OKAY docusate sodium (COLACE) 100 mg capsule Take 1 capsule by mouth once daily. Current Facility-Administered Medications Medication Dose Route Frequency sodium chloride 0.9 % (flush) 10 mL (BD POSIFLUSH) 10 mL INTRAVENOUS DIRECTED PRN Review of Systems Constitutional: Negative for chills, fever and weight loss. HENT: Positive for congestion. Negative for sinus pain and sore throat. Respiratory: Negative for cough, hemoptysis, sputum production, shortness of breath and wheezing. Cardiovascular: Negative for chest pain and palpitations. Gastrointestinal: Positive for abdominal pain, constipation, diarrhea and nausea. Negative for blood in stool, heartburn, melena and vomiting. Genitourinary: Negative for dysuria, flank pain, frequency, hematuria and urgency. Musculoskeletal: Positive for back pain. Negative for myalgias. Endo/Heme/Allergies: Positive for environmental allergies. Physical Exam Vitals reviewed. Constitutional: Appearance: Normal appearance. He is obese. HENT: Head: Normocephalic and atraumatic. Right Ear: Tympanic membrane, ear canal and external ear normal. Left Ear: Tympanic membrane, ear canal and external ear normal. Nose: No congestion. Mouth/Throat: Mouth: Mucous membranes are moist. Eyes: Conjunctiva/sclera: Conjunctivae normal. Pupils: Pupils are equal, round, and reactive to light. Cardiovascular: Rate and Rhythm: Normal rate and regular rhythm. Pulses: Normal pulses. Heart sounds: Normal heart sounds. Pulmonary: Effort: Pulmonary effort is normal. Breath sounds: Normal breath sounds. Abdominal: General: Bowel sounds are normal. There is no distension. Palpations: Abdomen is soft. There is no mass. Tenderness: There is abdominal tenderness. There is no right CVA tenderness, left CVA tenderness, guarding or rebound. Comments: Left sided abdominal tenderness with palpation Musculoskeletal: General: Normal range of motion. Cervical back: Normal range of motion and neck supple. Skin: General: Skin is warm and dry. Capillary Refill: Capillary refill takes less than 2 seconds. Neurological: Mental Status: He is alert and oriented to person, place, and time. Psychiatric: Mood and Affect: Mood normal. Behavior: Behavior normal. Thought Content: Thought content normal. Judgment: Judgment normal. ASSESSMENT/PLAN: 1. Left sided abdominal pain - ICD9: 789.09, ICD10: R10.9 (primary diagnosis) - CONSULT TO GASTROENTEROLOGY - AMOXICILLIN 875 MG-POTASSIUM CLAVULANATE 125 MG TABLET 2. Nausea - ICD9: 787.02, ICD10: R11.0 - CONSULT TO GASTROENTEROLOGY 3. Colon cancer screening - ICD9: V76.51, ICD10: Z12.11 - CONSULT TO GASTROENTEROLOGY 4. Bowel habit changes - ICD9: 787.99, ICD10: R19.4 - CONSULT TO GASTROENTEROLOGY 5. Diverticulosis - ICD9: 562.10, ICD10: K57.90 - CONSULT TO GASTROENTEROLOGY - AMOXICILLIN 875 MG-POTASSIUM CLAVULANATE 125 MG TABLET SADIA Calle APRN.CNP No follow-ups on file. Discussed above plan with patient. Pt agreeable with above plan. documented in this encounter [facility] 07-21-2022 Miscellaneous Notes Summary: Brace Fitting Left vm messages on 07/16 and 07/21 to schedule an appointment for a brace fitting. Leslee Barrios July 21, 2022 8:36 AM documented in this encounter [facility] 07-08-2022 Miscellaneous Notes Patient called requesting the following refill Refill(s) Requested: Requested Prescriptions Pending Prescriptions Disp Refills FLUoxetine (PROZAC) 10 mg capsule 180 capsule 1 Sig: Take 2 capsules by mouth once daily. gabapentin (NEURONTIN) 300 mg capsule 360 capsule 1 Sig: Take 4 capsules by mouth as directed for 180 days. ALLERGIES Allergen Reactions Bactrim [Sulfametho* Hives Erythromycin Base Hives, Shortness of Breath Sulfa (Sulfonamide * Unknown (home) [phone] (cell) Last Office Visit Date: 06/19/2022 Last Distance Health Visit: Visit date not found Future Appointment: Visit date not found The patients preferred pharmacy has been captured for this encounter? yes Request is for script(s) to be escript to pharmacy. Kathryn Jaime Cma documented in this encounter [facility] 07-08-2022 Miscellaneous Notes Received call from Leslee at Dr. Serrano's office regarding a referral he made for patient to see pain management and discuss injections (in left knee). Called and left vm for patient to call back to schedule new patient appt. Mary Capone documented in this encounter [facility] 07-08-2022 Miscellaneous Notes Summary: Pain Management Referral Spoke with Mary at the [facility]. She located the order in the record and will call the patient to schedule a new person appointment. Leslee Barrios July 08, 2022 10:24 AM documented in this encounter [facility] 07-08-2022 Miscellaneous Notes Patient phones requesting refills as follows: Requested Prescriptions Pending Prescriptions Disp Refills gabapentin (NEURONTIN) 300 mg capsule 360 capsule 1 Sig: Take 4 capsules by mouth as directed for 180 days. FLUoxetine (PROZAC) 10 mg capsule 180 capsule 1 Sig: Take 2 capsules by mouth once daily. Last office visit: 11/06/2021 No future appointments. Please review and advise. Ashley Espinal MA documented in this encounter [facility] 07-03-2022 Miscellaneous Notes Summary: Insurance Authorization Obtained CPT code from vendor. Contacted [employer] and spoke with Vero. No Authorization is required for CPT L1845, Ref [id number]. Emailed vendor and requested item be ordered. Leslee Barrios July 03, 2022 9:01 AM documented in this encounter [facility] 07-02-2022 History of Present illness Narrative Prepared injection per Dr. Serrano's order and handed to him. Associated Order(s): Large Joint Arthro/Inj: L knee joint Post-Procedure Diagnose(s): Post-traumatic osteoarthritis of left knee Images from the original note were not included. HPI: Sam Rai is a 46 year old male whose complaint is documented in pain description below. Patient is here for L knee OA. lAst seen 03/22 for 3rd visco injection. In past discussion of L knee geniculate n block with pain mgmt. The gel shots were doing well, until new job where he has to be on feet all day. Was doing great untl about last month when he started standing on his feet all day @ new job. Now painful all day, and at night. Pain with extension in the knee; Topicals, APAP, etc. No real improvement with ice/elevation. Mostly lateral pain. Had surgery in the past with scope, no improvement-may have worsened the pain. PAIN EVALUATION 07/02/2022 1502 Pain Level: 7 Pain Location: Knee-Left Description: Throbbing;Aching;Sharp;Stabbing;Bu rning;Other: See comment crackling sensation Duration Amount of Time: 1 Duration Units: Months Frequency: Continuous Intervention/Comfort measure: Medication;Reposition;Relaxation;P ositioning;Cold;Heat PAST MEDICAL HISTORY Diagnosis Date Acute medial meniscus tear of right knee Anxiety Asthma Contact dermatitis Recurrence not specified. COVID-19 long hauler Depression Diverticulitis GERD (gastroesophageal reflux disease) Insufficiency fracture of tibia Migraines Obesity, morbid, BMI 40.0-49.9 ([facility]) Primary osteoarthritis of right knee Restless legs syndrome (RLS) Sinus infection PAST SURGICAL HISTORY Procedure Laterality Date CARPAL TUNNEL Right CHOLECYSTECTOMY HX in 1999 KNEE SURGERY HX Right scope and tibial transfer ORTHOPEDICS SURGERY HX Right Right Knee PAST SURGICAL HISTORY OF teeth removed TONSILLECTOMY HX Social History Tobacco Use Smoking status: Never Smokeless tobacco: Never Vaping Use Vaping Use: Never used Substance Use Topics Alcohol use: Yes Comment: < 1/week Drug use: No Comment: No reported history. Current Outpatient Medications Medication Sig amoxicillin-clavulanic acid (AUGMENTIN) 875-125 mg per tablet Take 1 tablet by mouth twice daily with meals. nystatin (MYCOSTATIN, NILSTAT) 500,000 unit tab Take 1 tablet by mouth twice daily. fluticasone (FLONASE ALLERGY RELIEF) 50 mcg/actuation nasal spray Use 1 Holton in each nostril twice daily. ofloxacin (FLOXIN) 0.3 % otic solution Use 5 Drops in both ears once daily. keTORolac (TORADOL) 10 mg tablet Take 1 tablet by mouth twice daily as needed for pain. PHENYLephrine (ERWIN-SYNEPHRINE) 0.5 % spry Use 1 Holton in each nostril every 6 hours as needed. cholestyramine-sucrose (QUESTRAN) 4 gram powder Take 2 g by mouth three times daily with meals. Ipratropium [place] (ATROVENT) 21 mcg (0.03 %) nasal spray Use 2 Sprays in the nose every 12 hours. traZODone (DESYREL) 100 mg tablet Take 2 tablets by mouth daily at bedtime. topiramate (TOPAMAX) 100 mg tablet Take one pill at bedtime topiramate (TOPAMAX) 50 mg tablet Take 1 tablet by mouth daily at bedtime. To take along with 100 mg to equal 150 mg at bedtime FLUoxetine (PROZAC) 10 mg capsule Take 2 capsules by mouth once daily. acyclovir (ZOVIRAX) 800 mg tablet Take one tablet by mouth 5 times a day as needed hydrOXYzine HCl (ATARAX) 25 mg tablet Take 1 tablet by mouth three times daily as needed for itching/rash. And anxiety alpha lipoic acid-biotin (ALAMAX CR) 600 mg- 450 mcg extended release tablet Take 1 tablet by mouth once daily. ResveraCel (Jolie) Take 2 capsules by mouth once daily. SUMAtriptan (IMITREX) 100 mg tablet Take 1 tablet by mouth as needed when migraine headache starts. May repeat in 2 hours if headache continues or returns. Do not exceed 4 tablets in 24 hours. selenium sulfide 2.5 % lotn Apply to eyebrows and davila region twice a week. allow to remain on for 5-10 minutes and rinse. ibuprofen (MOTRIN) 800 mg tablet Take 1 tablet by mouth every 8 hours as needed for pain. Melatonin-SR (Klaire/Prothera) Take 1 capsule (3 mg) one hour before bedtime Quercetin 120 ct[address] (Pure Encapsulations) Take 2 capsules twice daily between meals. Buffered Ascorbic Acid capsules (Pure Encapsulations) - Vitamin C 2 capsules twice a day with or between meals Zinc [place] ([employer]) Take 1 capsule by mouth daily with food. Vitamin D3 5000 International Units (Pure Encapsulations) Take 1 capsule by mouth daily with food. prazosin (MINIPRESS) 1 mg cap Take 1 capsule by mouth daily at bedtime. albuterol HFA (PROAIR HFA) 90 mcg/actuation inhaler Inhale 2 Puffs as instructed every 4 hours as needed. dicyclomine (BENTYL) 10 mg capsule Take 1 capsule by mouth before meals and at bedtime. EPINEPHrine (EPIPEN 2-ANDRE) 0.3 mg/0.3 mL auto-injector Inject 0.3 mL intramuscularly as needed (Inject in thigh as needed for anaphylaxis and call 911). GENERIC OKAY budesonide-formoterol (SYMBICORT) 160-4.5 mcg/actuation inhaler Inhale 2 Puffs as instructed twice daily. gabapentin (NEURONTIN) 300 mg capsule Take 4 capsules by mouth as directed for 180 days. Current Facility-Administered Medications Medication Dose Route Frequency sodium chloride 0.9 % (flush) 10 mL (BD POSIFLUSH) 10 mL INTRAVENOUS DIRECTED PRN ALLERGIES Allergen Reactions Bactrim [Sulfametho* Hives Erythromycin Base Hives, Shortness of Breath Sulfa (Sulfonamide * Unknown Resp 18 Ht 5' 7" (1.70m) Wt 269 lb (122.0kg) BMI 42.12 kg/(m^2). Exam: Gen: Pt is a overweight male in NAD Gait: Limping left leg Left knee: Valgus alignment, 2+ effusion present, tenderness palpation over lateral joint line, positive lateral Jeremi Medical Decision Making Data I have reviewed the following data in process of medical decision making: Independent review of xray images ASSESSMENT: (M17.32) Post-traumatic osteoarthritis of left knee (primary encounter diagnosis) (E66.01, Z68.41) Class 3 severe obesity due to excess calories with serious comorbidity and body mass index (BMI) of 40.0 to 44.9 in adult (HCC) PLAN: Medical Decision Risks I have discussed the risks and benefits of the following treatments with patient today: Surgeries, including risks/benefits/recoveries, Joint injection, and bracing Con't wt loss (down 30# this year) offered referral for bariatric or medical management, feels he is doing well on his own at this time. 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 Part of this note has been created using voice recognition software. It may contain errors which are inherent in voice-recognition technology. Tre Serrano MD Injection performed as detailed below: Large Joint Arthro/Inj: L knee joint Informed Consent Consent Obtained: Verbal (Discussed risks including but not limited to infection, elevation in blood sugar, facial flushing) [place] Protocol SIGN IN Personnel directly involved with the procedure wore the appropriate PPE. Special Equipment: N/A Patient/Surrogate Stated/Verified: Patient name, Intended procedure and Relevant allergies TIME OUT Intended patient and procedure match the source document(s). Consent documented and matches the intended procedure. No relevant labs, photos, and/or imaging studies were applicable for review. No correct side/site applicable for marking and visibility. Medications required for procedure verified. No fire risk assessment and interventions applicable. No implant(s) inserted. 07/02/2022 4:43 PM The procedure site was prepped in the usual sterile fashion. Site: L knee joint Medications: 40 mg triamcinolone acetonide 40 mg/mL Anesthetics: 4 mL lidocaine (PF) 10 mg/mL (1 %) Outcome: Tolerated well, no immediate complications Post-injection instructions were reviewed with the patient and the patient voiced understanding of these instructions. SIGN OUT No specimen collected. No instruments, equipment or retained foreign bodies applicable. Post-procedure follow-up management communicated and Plan of Care Visit completed when applicable documented in this encounter [facility] 06-19-2022 History of Present illness Narrative Images from the original note were not included. Devon James Jr., M.D. [facility] [address] [place] [id number] Date of Evaluation: 06/19/2022 Patient Name: Sam Rai : 1975 Chief Complaint: Patient presents with: Sinus Problem: Sinus drainage is causing cough for about 1 week now. Is currently using Mucinex D Nursing Intake: There are no exam notes on file for this visit. Subjective Mr. Rai is a 46 year old male who presents with the following complaint(s): HPI Patient c/o frontal headache, pressure below his eyes, left worse than right as well as nasal and post nasal drainage, clear to yellow. Denies fever but has noted slight cough for the past week especially when trying to lie down. Review of Systems Constitutional: Negative for fever and weight loss. HENT: Positive for congestion and sinus pain. Negative for ear pain and nosebleeds. Eyes: Negative for blurred vision and double vision. Respiratory: Positive for cough. Negative for shortness of breath. Cardiovascular: Negative for chest pain and palpitations. Gastrointestinal: Negative for abdominal pain and heartburn. Genitourinary: Negative for dysuria and frequency. Musculoskeletal: Negative for back pain, joint pain and myalgias. Skin: Negative for itching and rash. Neurological: Negative for dizziness and focal weakness. Psychiatric/Behavioral: Negative for depression. The patient is not nervous/anxious. PAST MEDICAL HISTORY Diagnosis Date Acute medial meniscus tear of right knee Anxiety Asthma Contact dermatitis Recurrence not specified. COVID-19 long hauler Depression Diverticulitis GERD (gastroesophageal reflux disease) Insufficiency fracture of tibia Migraines Obesity, morbid, BMI 40.0-49.9 ([facility]) Primary osteoarthritis of right knee Restless legs syndrome (RLS) Sinus infection PAST SURGICAL HISTORY Procedure Laterality Date CARPAL TUNNEL Right CHOLECYSTECTOMY HX in 1999 KNEE SURGERY HX Right scope and tibial transfer ORTHOPEDICS SURGERY HX Right Right Knee PAST SURGICAL HISTORY OF teeth removed TONSILLECTOMY HX FAMILY HISTORY Problem Relation Age of Onset Stroke Mother Lipids Mother Hypertension Mother Obesity Mother Asthma Mother COPD Mother Lipids Father Hypertension Father Alcohol/Drug Father Restless legs syndrome No Family History Obstructive Sleep Apnea No Family History Social History Tobacco Use Smoking status: Never Smokeless tobacco: Never Vaping Use Vaping Use: Never used Substance Use Topics Alcohol use: Yes Comment: < 1/week Drug use: No Comment: No reported history. Current Meds [START ON 06/24/2022] amoxicillin-clavulanic acid (AUGMENTIN) 875-125 mg per tablet^Take 1 tablet by mouth every 12 hours for 5 days.^Disp: 10 tablet^Rfl: 0 fluticasone (FLONASE ALLERGY RELIEF) 50 mcg/actuation nasal spray^Use 1 [place] in each nostril twice daily.^Disp: 1 Each^Rfl: 0 dextromethorphan-guaiFENesin (MUCINEX DM) 30-600 mg per tablet^Take 1 tablet by mouth twice daily for 7 days.^Disp: 14 tablet^Rfl: 0 ofloxacin (FLOXIN) 0.3 % otic solution^Use 5 Drops in both ears once daily.^Disp: 5 mL^Rfl: 0 keTORolac (TORADOL) 10 mg tablet^Take 1 tablet by mouth twice daily as needed for pain.^Disp: 8 tablet^Rfl: 0 PHENYLephrine (ERWIN-SYNEPHRINE) 0.5 % spry^Use 1 [place] in each nostril every 6 hours as needed.^Disp: 10 mL^Rfl: 1 cholestyramine-sucrose (QUESTRAN) 4 gram powder^Take 2 g by mouth three times daily with meals.^Disp: 348.6 g^Rfl: 1 Ipratropium [place] (ATROVENT) 21 mcg (0.03 %) nasal spray^Use 2 Sprays in the nose every 12 hours.^Disp: 30 mL^Rfl: 1 traZODone (DESYREL) 100 mg tablet^Take 2 tablets by mouth daily at bedtime.^Disp: 180 tablet^Rfl: 3 budesonide-formoterol (SYMBICORT) 160-4.5 mcg/actuation inhaler^Inhale 2 Puffs as instructed twice daily.^Disp: 30.6 g^Rfl: 3 topiramate (TOPAMAX) 100 mg tablet^Take one pill at bedtime^Disp: 90 tablet^Rfl: 1 topiramate (TOPAMAX) 50 mg tablet^Take 1 tablet by mouth daily at bedtime. To take along with 100 mg to equal 150 mg at bedtime^Disp: 90 tablet^Rfl: 1 gabapentin (NEURONTIN) 300 mg capsule^Take 4 capsules by mouth as directed for 180 days.^Disp: 360 capsule^Rfl: 1 FLUoxetine (PROZAC) 10 mg capsule^Take 2 capsules by mouth once daily.^Disp: 180 capsule^Rfl: 1 acyclovir (ZOVIRAX) 800 mg tablet^Take one tablet by mouth 5 times a day as needed^Disp: 30 tablet^Rfl: 5 hydrOXYzine HCl (ATARAX) 25 mg tablet^Take 1 tablet by mouth three times daily as needed for itching/rash. And anxiety^Disp: 270 tablet^Rfl: 1 alpha lipoic acid-biotin (ALAMAX CR) 600 mg- 450 mcg extended release tablet^Take 1 tablet by mouth once daily.^Disp: ^Rfl: ResveraCel (Jolie)^Take 2 capsules by mouth once daily.^Disp: ^Rfl: SUMAtriptan (IMITREX) 100 mg tablet^Take 1 tablet by mouth as needed when migraine headache starts. May repeat in 2 hours if headache continues or returns. Do not exceed 4 tablets in 24 hours.^Disp: 9 tablet^Rfl: 2 selenium sulfide 2.5 % lotn^Apply to eyebrows and davila region twice a week. allow to remain on for 5-10 minutes and rinse.^Disp: 120 mL^Rfl: 1 ibuprofen (MOTRIN) 800 mg tablet^Take 1 tablet by mouth every 8 hours as needed for pain.^Disp: 20 tablet^Rfl: 0 Melatonin-SR (Klaire/Prothera)^Take 1 capsule (3 mg) one hour before bedtime^Disp: 1 Bottle^Rfl: Quercetin 120 ct[address] (Pure Encapsulations)^Take 2 capsules twice daily between meals.^Disp: ^Rfl: Buffered Ascorbic Acid capsules (Pure Encapsulations) - Vitamin C^2 capsules twice a day with or between meals^Disp: ^Rfl: 0 Zinc [place] ([employer])^Take 1 capsule by mouth daily with food.^Disp: ^Rfl: Vitamin D3 5000 International Units (Pure Encapsulations)^Take 1 capsule by mouth daily with food.^Disp: 1 Bottle^Rfl: 1 prazosin (MINIPRESS) 1 mg cap^Take 1 capsule by mouth daily at bedtime.^Disp: 90 capsule^Rfl: 1 albuterol HFA (PROAIR HFA) 90 mcg/actuation inhaler^Inhale 2 Puffs as instructed every 4 hours as needed.^Disp: 1 Each^Rfl: 3 dicyclomine (BENTYL) 10 mg capsule^Take 1 capsule by mouth before meals and at bedtime.^Disp: 60 capsule^Rfl: 0 EPINEPHrine (EPIPEN 2-ANDRE) 0.3 mg/0.3 mL auto-injector^Inject 0.3 mL intramuscularly as needed (Inject in thigh as needed for anaphylaxis and call 911). GENERIC OKAY^Disp: 2 Each^Rfl: 3 I have confirmed and edited as necessary the chief complaint, medications, past medical, family and social histories obtained by others. Objective BP 116/83 Pulse 83 Temp 97.8 Ht 5' 7" (1.70m) Wt 269 lb 3.2 oz (122.1kg) SpO2 97% BMI 42.15 kg/(m^2). Physical Exam Vitals and nursing note reviewed. HENT: Head: Normocephalic. Comments: Facial tenderness over the frontal sinus and left maxillary sinus Right Ear: External ear normal. Left Ear: External ear normal. Nose: Congestion present. Eyes: Pupils: Pupils are equal, round, and reactive to light. Cardiovascular: Rate and Rhythm: Normal rate and regular rhythm. Heart sounds: Normal heart sounds. Pulmonary: Effort: Pulmonary effort is normal. Breath sounds: Normal breath sounds. Abdominal: General: Bowel sounds are normal. Palpations: Abdomen is soft. There is no mass. Musculoskeletal: General: No tenderness. Normal range of motion. Cervical back: Normal range of motion and neck supple. Lymphadenopathy: Cervical: No cervical adenopathy. Skin: General: Skin is warm and dry. Neurological: Mental Status: He is alert and oriented to person, place, and time. Gait: Gait is intact. Deep Tendon Reflexes: Reflexes are normal and symmetric. Psychiatric: Mood and Affect: Mood and affect normal. ASSESSMENT/PLAN: 1. Bacterial sinusitis - ICD9: 473.9, 041.9, ICD10: J32.9, B96.89 - AMOXICILLIN 875 MG-POTASSIUM CLAVULANATE 125 MG TABLET - NYSTATIN 500,000 UNIT TABLET Discussed with patient diagnosis, use of Augmentin for the next 2 weeks and nystatin for the next month as this seemed to be helpful in the past by Dr. Hale. Patient is to continue Erwin-Synephrine for about a week and Flonase throughout the rest of the allergy season which may be until the first chu in late fall. Devon James Jr, MD No follow-ups on file. The above diagnoses & plan of care have been created and agreed upon with the patient. This note was partially generated using [employer] voice recognition system, and there may be some incorrect words, spellings, and punctuation that were not noted in checking the note before saving. documented in this encounter [facility] 06-18-2022 Miscellaneous Notes Patient notified. Amy Garcia MA Considering the recurrent nature of this patient's problem (was treated twice in April), I do feel an OV and PE imperative. Since I am not in office today, tomorrow 06/19/22 is as soon as I could see him. Devon James Jr, MD Patient left following message with call center: patient called in with possible sinus infection for a few days; drainage, congestion, pressure, with constant headache-not the worst of patients life. Patient was wondering if there was any way to get in a bit sooner or was wondering if Jacob could just call something in for him today. Due to see you in office on 06/19/22. No sooner appts available. Amy Garcia MA documented in this encounter [facility] 06-17-2022 History of Present illness Narrative This note was created using NoteWriter. Subjective Sam Rai is a 46 year old male. HPI by patient: Sam Rai is a 46 year old male presenting to the office with the complaint of viral symptoms. Started just 2 days prior, on 06/15/22. States "I get frequent sinus infections"- states he needs an antibiotic. Associated symptoms include sinus congestion, facial pressure, migraine, itching ears, cough only at night, post nasal drainage, and fatigue. Denies shortness of breath, sore throat, nausea, vomiting, diarrhea, fevers, chills, and body aches. Vaccinated for influenza: yes. Covid Immunization Dates COVID-19 VACCINE (Series Information) Completed 09/12/2021 Imm Admin: COVID-19 vaccine, age 12+ yr (PFIZER-BIONTECH - PURPLE TOP) 02/12/2021 Imm Admin: COVID-19 vaccine, age 12+ yr (PFIZER-BIONTECH - PURPLE TOP) 01/22/2021 Imm Admin: COVID-19 vaccine, age 12+ yr (PFIZER-BIONTECH - PURPLE TOP) Personal history of Covid: yes. Flu/RSV contacts: none. Strep contacts: none. Sick contacts: none. Covid + contacts: none. Travel in the last 14 days: none. Smoking history/second hand smoke: none. OTC acetaminophen for headache, daytime/nightime medication. Last dose was before work. Has been on Augmentin two times in the last several months, March and April. Was also on ofloxacin in April. ALLERGIES Bactrim [Sulfametho* Hives Erythromycin Base Hives, Shortness of Breath Sulfa (Sulfonamide * Unknown Family History Reviewed Including Cardiac Diseases, Psychiatric Diseases, & Substance Abuse Problem: Stroke Relation: Mother Age of Onset: (Not Specified) Problem: Lipids Relation: Mother Age of Onset: (Not Specified) Problem: Hypertension Relation: Mother Age of Onset: (Not Specified) Problem: Obesity Relation: Mother Age of Onset: (Not Specified) Problem: Asthma Relation: Mother Age of Onset: (Not Specified) Problem: COPD Relation: Mother Age of Onset: (Not Specified) Problem: Lipids Relation: Father Age of Onset: (Not Specified) Problem: Hypertension Relation: Father Age of Onset: (Not Specified) Problem: Alcohol/Drug Relation: Father Age of Onset: (Not Specified) Problem: Restless legs syndrome Relation: No Family History Age of Onset: (Not Specified) Problem: Obstructive Sleep Apnea Relation: No Family History Age of Onset: (Not Specified) Social History Tobacco Use Smoking status: Never Smokeless tobacco: Never Vaping Use Vaping Use: Never used Alcohol use: Yes Comment: < 1/week Drug use: No Comment: No reported history. Active Ambulatory Problems Primary osteoarthritis of right knee Date Noted: 09/04/2015 Pain in right knee Date Noted: 09/04/2015 Contact dermatitis Date Noted: 09/07/2016 Mass on back Date Noted: 11/27/2016 Restless leg syndrome Date Noted: 04/01/2017 Migraine with aura and without status migrainosus, not intractable Date Noted: 04/01/2017 Eczema Date Noted: 04/01/2017 Obesity, Class III, BMI >= 40 E66.01 Date Noted: 01/20/2018 Posterior tibial tendinitis of left leg Date Noted: 02/01/2018 Sinus tarsi syndrome of left ankle Date Noted: 03/16/2018 Obesity, morbid, BMI 40.0-49.9 (HCC) Diverticulosis Date Noted: 03/22/2019 Chronic nonintractable headache Date Noted: 05/09/2019 Closed fracture of bone of right foot Date Noted: 05/09/2019 Intractable migraine without aura and without status migrainosus Date Noted: 06/05/2019 Seasonal allergic rhinitis due to pollen Date Noted: 03/13/2020 History of shingles Date Noted: 03/13/2020 Bronchitis, mucopurulent recurrent (HCC) Date Noted: 03/13/2020 S/P left knee surgery Date Noted: 04/30/2020 LIS (obstructive sleep apnea) Date Noted: 06/28/2020 Allergic rhinitis due to animal hair and dander Date Noted: 07/16/2020 Allergic rhinitis Date Noted: 07/16/2020 Allergic rhinitis due to mold Date Noted: 10/29/2020 Allergic rhinitis due to dust mite Date Noted: 03/26/2021 Dyspnea and respiratory abnormalities Date Noted: 07/17/2021 Pleuritic chest pain Date Noted: 07/17/2021 Moderate asthma Date Noted: 07/17/2021 Anxiety and depression Date Noted: 07/31/2021 Corneal subepithelial haze of left eye Date Noted: 08/12/2021 Refractive error Date Noted: 08/12/2021 History of strabismus surgery Date Noted: 08/12/2021 Vitreous syneresis of both eyes Date Noted: 08/12/2021 Left flank pain Date Noted: 09/02/2021 Malodorous urine Date Noted: 09/02/2021 Right kidney stone Date Noted: 09/02/2021 Chronic sinusitis Date Noted: 11/11/2021 Resolved Ambulatory Problems Acute medial meniscus tear of right knee Date Noted: 08/19/2015 Aftercare following surgery Date Noted: 01/19/2017 Mild intermittent asthma without complication Date Noted: 04/01/2017 Exotropia of right eye Date Noted: 07/07/2019 Wheezing Date Noted: 03/13/2020 Mild persistent asthma Date Noted: 10/29/2020 Chronic pain of left knee Date Noted: 01/13/2021 Past Medical History: No date: Anxiety No date: Asthma No date: COVID-19 long hauler No date: Depression No date: Diverticulitis No date: GERD (gastroesophageal reflux disease) No date: Insufficiency fracture of tibia No date: Migraines No date: Restless legs syndrome (RLS) No date: Sinus infection Review of Systems Constitutional: Negative. HENT: Negative. Eyes: Negative. Respiratory: Negative. Cardiovascular: Negative. Gastrointestinal: Negative. Endocrine: Negative. Genitourinary: Negative. Musculoskeletal: Negative. Skin: Negative. Neurological: Negative. Objective BP 133/74 Pulse 84 Temp 36.7 C (98.1 F) (Tympanic) Resp 18 Ht 170.2 cm (5' 7") Wt 122 kg (269 lb) SpO2 97% BMI 42.13 kg/m Physical Exam Vitals reviewed. Constitutional: General: He is awake. He is not in acute distress. Appearance: He is not toxic-appearing or diaphoretic. Ill appearance: appears tired. HENT: Head: Normocephalic and atraumatic. Right Ear: Tympanic membrane, ear canal and external ear normal. Left Ear: Tympanic membrane, ear canal and external ear normal. Nose: No rhinorrhea. Right Sinus: Maxillary sinus tenderness present. No frontal sinus tenderness. Left Sinus: Maxillary sinus tenderness present. No frontal sinus tenderness. Cardiovascular: Rate and Rhythm: Normal rate and regular rhythm. Pulmonary: Effort: Pulmonary effort is normal. Breath sounds: Normal breath sounds. Lymphadenopathy: Head: Right side of head: No submandibular or tonsillar adenopathy. Left side of head: No submandibular or tonsillar adenopathy. Cervical: Cervical adenopathy present. Right cervical: Superficial cervical adenopathy present. Left cervical: Superficial cervical adenopathy present. Neurological: Mental Status: He is alert. Psychiatric: Behavior: Behavior is cooperative. Assessment and Plan (J06.9) Viral URI with cough (primary encounter diagnosis) Plan: fluticasone (FLONASE ALLERGY RELIEF) 50 mcg/actuation nasal spray, dextromethorphan-guaiFENesin (MUCINEX DM) 30-600 mg per tablet, COVID WITH FLUA+B, ROUTINE, amoxicillin-clavulanic acid (AUGMENTIN) 875-125 mg per tablet Education on viral vs bacterial infections. Most viral infections will last 10 days, sometimes 14. It is possible to have back to back viral infections. An antibiotic will not treat a virus. -Covid/flu test for rule out, results in 48 hours, isolation in the interim. Result to mychart. Should you be positive and want outpatient covid treatment you can contact your primary care provider. -If covid negative and still symptomatic for 10 days, you may fill script for Augmentin. Please remember if no improvement that this is likely viral and needs to run it's course. -Drink lots of fluids and get plenty of rest. -Vaporizers, cool mist humidifiers, warm showers, and warm fluids help open respiratory and sinus passages. Clean humidifiers daily. -OTC tylenol as directed on the bottle. -Saline nasal spray as needed. Flonase twice daily can help reduce inflammation through the sinus cavities. -OTC Mucinex DM or generic version for cough/congestion for those over the age of 12. -Cough/deep breathing education, promote clearing of the airways and good lung expansion. -Make follow up with primary care for monitoring and resolution in symptoms. -Signs that warrant an ER evaluation: Sudden change/worsening in condition, lethargy, signs of dehydration, fever greater than 102 F that is not responding to Tylenol or ibuprofen (Motrin, Advil), drooling, difficulty swallowing, difficulty breathing, shortness of breath, chest pain, evidence of airway compromise (tripod position, neck extension, retractions), seizures, changes in mental status, or other concerns. The patient will pursue further outpatient evaluation with the primary care physician or another Urgent Care/Express Care as outlined in the after visit summary. The patient is agreeable to this plan of care and follow-up instructions have been explained in detail. The patient has received these instructions in written format and have expressed an understanding of the after visit summary. Medical Decision Making: Medical Decision Making Level: 1 - N/A I spent a total of 20 minutes on the date of the service which included preparing to see the patient, [id number] patient care, completing clinical documentation, obtaining and/or reviewing separately obtained history, performing a medically appropriate examination, counseling and educating the patient/family/caregiver, and ordering medications, tests, or procedures. This patient encounter involved the screening or treatment of novel coronavirus infection (COVID-19). documented in this encounter [facility] 06-17-2022 Instructions Melissa Mae APRN.MARILEE - 06/17/2022 3:13 PM EDT (J06.9) Viral URI with cough (primary encounter diagnosis) Plan: fluticasone (FLONASE ALLERGY RELIEF) 50 mcg/actuation nasal spray, dextromethorphan-guaiFENesin (MUCINEX DM) 30-600 mg per tablet, COVID WITH FLUA+B, ROUTINE, amoxicillin-clavulanic acid (AUGMENTIN) 875-125 mg per tablet Education on viral vs bacterial infections. Most viral infections will last 10 days, sometimes 14. It is possible to have back to back viral infections. An antibiotic will not treat a virus. -Covid/flu test for rule out, results in 48 hours, isolation in the interim. [facility] Should you be positive and want outpatient covid treatment you can contact your primary care provider. -If covid negative and still symptomatic for 10 days, you may fill script for Augmentin. Please remember if no improvement that this is likely viral and needs to run it's course. -Drink lots of fluids and get plenty of rest. -Vaporizers, cool mist humidifiers, warm showers, and warm fluids help open respiratory and sinus passages. Clean humidifiers daily. -OTC tylenol as directed on the bottle. -Saline nasal spray as needed. Flonase twice daily can help reduce inflammation through the sinus cavities. -OTC Mucinex DM or generic version for cough/congestion for those over the age of 12. -Cough/deep breathing education, promote clearing of the airways and good lung expansion. -Make follow up with primary care for monitoring and resolution in symptoms. -Signs that warrant an ER evaluation: Sudden change/worsening in condition, lethargy, signs of dehydration, fever greater than 102 F that is not responding to Tylenol or ibuprofen (Motrin, Advil), drooling, difficulty swallowing, difficulty breathing, shortness of breath, chest pain, evidence of airway compromise (tripod position, neck extension, retractions), seizures, changes in mental status, or other concerns. Clear. You re in the normal range. Straight mucus is mostly water, with proteins, antibodies and dissolved salts. Your nasal tissues produce it 24/05. Most of it flows down the back of your throat to be dissolved in the stomach. White. You re congested. Swollen, inflamed tissues in your nose are slowing the flow of mucus, causing it to lose moisture and become thick and cloudy. This can be a sign of a nasal infection or cold. Yellow. Your cold or infection is progressing. Infection-fighting cells might be rushing to the site of the microbial infection. White blood cells are among them as well. Once exhausted, they re carried off on the mucosal tide, lending it a yellowish tinge. Colds inevitably last 10 to 14 days. [place] down and wait it out. Green. Your immune system is really fighting back. The mucus is thick with white cells and other wreckage from the morales. If you re still sick after about 12 days, you may want to see a doctor. It could be sinusitis, a bacterial infection. If you re feverish or nauseated, see a doctor soon. [place] or red. This is blood. Your nasal tissue in the nose has somehow become broken -- perhaps because it s dry, irritated or suffered some kind of impact. Brown. This shade could be blood, but likely it s something inhaled, like dirt, snuff or paprika. documented in this encounter [facility] 04-23-2022 Instructions Elmira Swartz APRN.MARILEE - 04/23/2022 2:12 PM EDT Otitis media is an infection of the middle ear. The middle ear sits behind the eardrum. This infection may be caused by a virus or bacteria and often follows a cold. Otitis media is not contagious. INSTRUCTIONS: 1. If an antibiotic has been prescribed,it should be taken exactly as prescribed. Do not stop the medicine even if the symptoms go away. 2. [id number] pain medication may be taken or other pain medication as prescribed by the doctor. 3. Nothing should be placed in the ear unless instructed by your doctor. 4. The patient may return to school or work when the temperature is normal (98.6 F or 37 C). 5. The patient should not swim while the ear is infected. CALL YOUR PRIMARY CARE PROVIDERS OFFICE- -If you do not feel better within 48-72 hours. -If you develop a temperature over 102 F (39 C). -If you develop drainage from the affected ear. -If you have any new problem that may be related to the medicine prescribed. documented in this encounter [facility] 04-23-2022 History of Present illness Narrative This note was created using [employer]. Subjective Sam Rai is a 46 year old male. HPI by patient: Sam is a 46 yo male presenting to the office with the complaint of ear pain Started approximately a few days ago, has had sinus infections off and on last couple weeks and on Augmentin twice recently. Has been using ofloxacin drops. Associated symptoms include ear pain and pressure Denies fever or chills Covid Immunization Dates COVID-19 VACCINE (Series Information) Completed 09/12/2021 Imm Admin: COVID-19 vaccine, age 12+ yr (PFIZER-BIONTECH - PURPLE TOP) 02/12/2021 Imm Admin: COVID-19 vaccine, age 12+ yr (PFIZER-BIONTECH - PURPLE TOP) 01/22/2021 Imm Admin: COVID-19 vaccine, age 12+ yr (PFIZER-BIONTECH - PURPLE TOP) Personal history of Covid: yes Flu/RSV contacts: no Strep contacts: no Sick contacts: no Covid + contacts: no Travel in the last 14 days: no Smoking history/second hand smoke: no OTC ofloaxacin drops Yes antibiotic use in the last 30 days. ALLERGIES Bactrim (Sulfametho* Hives Erythromycin Base Hives, Shortness of Breath Sulfa (Sulfonamide * Unknown Family History Reviewed Including Cardiac Diseases, Psychiatric Diseases, & Substance Abuse Problem: Stroke Relation: Mother Age of Onset: (Not Specified) Problem: Lipids Relation: Mother Age of Onset: (Not Specified) Problem: Hypertension Relation: Mother Age of Onset: (Not Specified) Problem: Obesity Relation: Mother Age of Onset: (Not Specified) Problem: Asthma Relation: Mother Age of Onset: (Not Specified) Problem: COPD Relation: Mother Age of Onset: (Not Specified) Problem: Lipids Relation: Father Age of Onset: (Not Specified) Problem: Hypertension Relation: Father Age of Onset: (Not Specified) Problem: Alcohol/Drug Relation: Father Age of Onset: (Not Specified) Problem: Restless legs syndrome Relation: No Family History Age of Onset: (Not Specified) Problem: Obstructive Sleep Apnea Relation: No Family History Age of Onset: (Not Specified) Social History Tobacco Use Smoking status: Never Smoker Smokeless tobacco: Never Used Vaping Use Vaping Use: Never used Alcohol use: Yes Comment: < 1/week Drug use: No Comment: No reported history. Review of Systems Constitutional: Negative for chills and fever. HENT: Positive for ear pain. Negative for congestion, rhinorrhea and sore throat. Respiratory: Negative for cough. Cardiovascular: Negative for chest pain. Allergic/Immunologic: Negative for immunocompromised state. Neurological: Negative for headaches. Hematological: Negative for adenopathy. Objective BP 116/81 Pulse 73 Temp 36.4 C (97.5 F) Resp 16 Ht 170.2 cm (5' 7") Wt 122.5 kg (270 lb) SpO2 98% BMI 42.29 kg/m Physical Exam Vitals and nursing note reviewed. Constitutional: Appearance: He is well-developed. HENT: Right Ear: Tympanic membrane and ear canal normal. Left Ear: Ear canal normal. A middle ear effusion is present. Nose: Nose normal. Mouth/Throat: Pharynx: Uvula midline. Cardiovascular: Rate and Rhythm: Normal rate and regular rhythm. Heart sounds: Normal heart sounds. Pulmonary: Effort: Pulmonary effort is normal. Breath sounds: Normal breath sounds. Lymphadenopathy: Cervical: No cervical adenopathy. Skin: General: Skin is warm and dry. Neurological: Mental Status: He is alert and oriented to person, place, and time. Assessment and Plan ASSESSMENT/PLAN: 1. Middle ear effusion, left - ICD9: 381.4, ICD10: H65.92 - Will begin treatment as written, see orders - Supportive care with plenty of fluids, rest, and analgesia prn. - PREDNISONE 10 MG TABLET - OFLOXACIN 0.3 % EAR DROPS Elmira Swartz APRN.MARILEE Medical Decision Making: Problems: Moderate: New problem with uncertain prognosis Data: Unique source(s) for external note(s) reviewed: 1 Risk: Moderate: Drug management Medical Decision Making Level: 4 - Moderate Remove COVID19 association documented in this encounter [facility] 04-13-2022 History of Present illness Narrative Visit Date: April 13, 2022 Mr.Kevin Campbell Rai Date of : 1975 MRN/E #: [id number] Chief Complaint Patient presents with: Headache: Sinus problem is causing migraine. Has had for 1 month now Throat Problem: Right side of face and throat is sore History of present illness Sam Rai is a 46 year old male. HPI Patient is here today to address right sided facial pain and he states he has outbreak of shingles for which she is taking acyclovir!. Patient has been to the emergency room March 24 for systemic symptoms with fever chills respiratory symptoms and diarrhea. He was negative for COVID-19 infection. His blood work did not show leukocytosis but he was low on sodium, potassium and albumin which is his usual state. Patient was given Toradol in the ER and he had a chest x-ray that was negative. He also was given potassium IV. His condition has worsened and he came in the office and was seen by Dr. James who prescribed Augmentin that the patient is still taking. He states he can feel that the Augmentin is working on the sinuses but the part of his right-sided migraine is not getting better. He was using his Topamax and he used Imitrex up to 6 times in the last week or so without major improvement. On the other hand patient states that he usually have outbreaks of shingles for which he uses on hand Aciclovir until the shingles is better. He states that he had this outbreak on the right side of the face for which he is still taking acyclovir since almost 3 days. Patient tested negative for COVID 19 infection back on 24 March PAIN EVALUATION No data found in the last 1 encounters. ALLERGIES Allergen Reactions Bactrim [Sulfametho* Hives Erythromycin Base Hives, Shortness of Breath Sulfa (Sulfonamide * Unknown PAST MEDICAL HISTORY Diagnosis Date Acute medial meniscus tear of right knee Anxiety Asthma Contact dermatitis Recurrence not specified. COVID-19 long hauler Depression Diverticulitis GERD (gastroesophageal reflux disease) Insufficiency fracture of tibia Migraines Obesity, morbid, BMI 40.0-49.9 ([facility]) Primary osteoarthritis of right knee Restless legs syndrome (RLS) Sinus infection PAST SURGICAL HISTORY Procedure Laterality Date CARPAL TUNNEL Right CHOLECYSTECTOMY HX in 1999 KNEE SURGERY HX Right scope and tibial transfer ORTHOPEDICS SURGERY HX Right Right Knee PAST SURGICAL HISTORY OF teeth removed TONSILLECTOMY HX Social History Tobacco Use Smoking status: Never Smoker Smokeless tobacco: Never Used Vaping Use Vaping Use: Never used Substance Use Topics Alcohol use: Yes Comment: < 1/week Drug use: No Comment: No reported history. FAMILY HISTORY Problem Relation Age of Onset Stroke Mother Lipids Mother Hypertension Mother Obesity Mother Asthma Mother COPD Mother Lipids Father Hypertension Father Alcohol/Drug Father Restless legs syndrome No Family History Obstructive Sleep Apnea No Family History Review of Systems Constitutional: Negative for chills, fever, malaise/fatigue and weight loss. HENT: Negative for congestion, ear discharge, ear pain, sinus pain and sore throat. Eyes: Negative for blurred vision and double vision. Respiratory: Negative for cough, sputum production, shortness of breath and wheezing. Cardiovascular: Negative for chest pain, palpitations and orthopnea. Gastrointestinal: Negative for abdominal pain, diarrhea, heartburn, nausea and vomiting. Genitourinary: Negative. Musculoskeletal: Positive for myalgias. Neurological: Positive for headaches. Negative for dizziness, tingling and tremors. Physical Exam Constitutional: Appearance: Normal appearance. HENT: Head: Normocephalic and atraumatic. Comments: There is a small scab on the right maxillary area which the patient states that it was a breakout of shingles. There is no pain on palpating the sinus areas Right Ear: Tympanic membrane, ear canal and external ear normal. Left Ear: Tympanic membrane, ear canal and external ear normal. Nose: Congestion and rhinorrhea present. Mouth/Throat: Mouth: Mucous membranes are moist. Pharynx: Oropharynx is clear. Eyes: Conjunctiva/sclera: Conjunctivae normal. Pupils: Pupils are equal, round, and reactive to light. Neck: Vascular: No carotid bruit. Cardiovascular: Rate and Rhythm: Normal rate and regular rhythm. Heart sounds: Normal heart sounds. No murmur heard. Pulmonary: Effort: Pulmonary effort is normal. No respiratory distress. Breath sounds: Normal breath sounds. No stridor. No wheezing, rhonchi or rales. Musculoskeletal: Cervical back: Normal range of motion and neck supple. No rigidity or tenderness. Lymphadenopathy: Cervical: No cervical adenopathy. Neurological: General: No focal deficit present. Mental Status: He is alert and oriented to person, place, and time. Psychiatric: Mood and Affect: Mood and affect normal. Cognition and Memory: Memory normal. Judgment: Judgment normal. BP 92/69 Pulse 76 Ht 5' 7" (1.70m) Wt 270 lb 6.4 oz (122.7kg) SpO2 97% BMI 42.34 kg/(m^2). ASSESSMENT/PLAN: 1. Intractable migraine without aura and without status migrainosus - ICD9: 346.11, ICD10: G43.019 (primary diagnosis) Worsening migraine, patient is on topamax and Imitrex. I had a long discussion with him that this pain could be the result of his URI. I suggest few days of Ketoralac that he said he used and benefited from before - KETOROLAC 10 MG TABLET 2. Right facial pain - ICD9: 784.0, ICD10: R51.9 No evidence of shingles on the face but the patient has on hand acyclovir and he is taking it - KETOROLAC 10 MG TABLET Avelina Matias MD documented in this encounter [facility] 04-07-2022 History of Present illness Narrative Images from the original note were not included. Devon James Jr., M.D. [facility] [address] [place] [address] Date of Evaluation: 04/07/2022 Patient Name: Sam Rai : 1975 Chief Complaint: Patient presents with: Established Patient: Transfer Care Sinus Problem Nursing Intake: There are no exam notes on file for this visit. Subjective Mr. Rai is a 46 year old male who presents with the following complaint(s): HPI Pt was seen nearly a month ago at a walk-in clinic for facial congestion and headache. Clinic decided he had a sinus infection and prescribed a week of Augmentin which helped but did not eliminate his symptoms. Now he insists his facial pain is worse, he is congested and notes post nasal drainage and frontal headache. Review of Systems Constitutional: Negative for fever and weight loss. HENT: Positive for sinus pain. Negative for congestion, ear pain and nosebleeds. Eyes: Negative for blurred vision and double vision. Respiratory: Negative for cough and shortness of breath. Cardiovascular: Negative for chest pain and palpitations. Gastrointestinal: Negative for abdominal pain and heartburn. Genitourinary: Negative for dysuria and frequency. Musculoskeletal: Negative for back pain, joint pain and myalgias. Skin: Negative for itching and rash. Neurological: Positive for headaches. Negative for dizziness and focal weakness. Psychiatric/Behavioral: Negative for depression. The patient is not nervous/anxious. PAST MEDICAL HISTORY Diagnosis Date Acute medial meniscus tear of right knee Anxiety Asthma Contact dermatitis Recurrence not specified. COVID-19 long hauler Depression Diverticulitis GERD (gastroesophageal reflux disease) Insufficiency fracture of tibia Migraines Obesity, morbid, BMI 40.0-49.9 ([facility]) Primary osteoarthritis of right knee Restless legs syndrome (RLS) Sinus infection PAST SURGICAL HISTORY Procedure Laterality Date CARPAL TUNNEL Right CHOLECYSTECTOMY HX in 1999 KNEE SURGERY HX Right scope and tibial transfer ORTHOPEDICS SURGERY HX Right Right Knee PAST SURGICAL HISTORY OF teeth removed TONSILLECTOMY HX FAMILY HISTORY Problem Relation Age of Onset Stroke Mother Lipids Mother Hypertension Mother Obesity Mother Asthma Mother COPD Mother Lipids Father Hypertension Father Alcohol/Drug Father Restless legs syndrome No Family History Obstructive Sleep Apnea No Family History Social History Tobacco Use Smoking status: Never Smoker Smokeless tobacco: Never Used Vaping Use Vaping Use: Never used Substance Use Topics Alcohol use: Yes Comment: < 1/week Drug use: No Comment: No reported history. Current Meds cholestyramine-sucrose (QUESTRAN) 4 gram powder Take 2 g by mouth three times daily with meals. Ipratropium [place] (ATROVENT) 21 mcg (0.03 %) nasal spray Use 2 Sprays in the nose every 12 hours. benzonatate (TESSALON PERLES) 100 mg capsule Take 1 capsule by mouth three times daily as needed for cough. traZODone (DESYREL) 100 mg tablet Take 2 tablets by mouth daily at bedtime. budesonide-formoterol (SYMBICORT) 160-4.5 mcg/actuation inhaler Inhale 2 Puffs as instructed twice daily. topiramate (TOPAMAX) 100 mg tablet Take one pill at bedtime topiramate (TOPAMAX) 50 mg tablet Take 1 tablet by mouth daily at bedtime. To take along with 100 mg to equal 150 mg at bedtime gabapentin (NEURONTIN) 300 mg capsule Take 4 capsules by mouth as directed for 180 days. FLUoxetine (PROZAC) 10 mg capsule Take 2 capsules by mouth once daily. acyclovir (ZOVIRAX) 800 mg tablet Take one tablet by mouth 5 times a day as needed hydrOXYzine HCl (ATARAX) 25 mg tablet Take 1 tablet by mouth three times daily as needed for itching/rash. And anxiety alpha lipoic acid-biotin (ALAMAX CR) 600 mg- 450 mcg extended release tablet Take 1 tablet by mouth once daily. ResveraCel (Jolie) Take 2 capsules by mouth once daily. SUMAtriptan (IMITREX) 100 mg tablet Take 1 tablet by mouth as needed when migraine headache starts. May repeat in 2 hours if headache continues or returns. Do not exceed 4 tablets in 24 hours. selenium sulfide 2.5 % lotn Apply to eyebrows and davila region twice a week. allow to remain on for 5-10 minutes and rinse. ibuprofen (MOTRIN) 800 mg tablet Take 1 tablet by mouth every 8 hours as needed for pain. Melatonin-SR (Klaire/Prothera) Take 1 capsule (3 mg) one hour before bedtime Quercetin 120 ct. (Pure Encapsulations) Take 2 capsules twice daily between meals. Buffered Ascorbic Acid capsules (Pure Encapsulations) - Vitamin C 2 capsules twice a day with or between meals Zinc [place] ([employer]) Take 1 capsule by mouth daily with food. Vitamin D3 5000 International Units (Pure Encapsulations) Take 1 capsule by mouth daily with food. prazosin (MINIPRESS) 1 mg cap Take 1 capsule by mouth daily at bedtime. albuterol HFA (PROAIR HFA) 90 mcg/actuation inhaler Inhale 2 Puffs as instructed every 4 hours as needed. dicyclomine (BENTYL) 10 mg capsule Take 1 capsule by mouth before meals and at bedtime. EPINEPHrine (EPIPEN 2-ANDRE) 0.3 mg/0.3 mL auto-injector Inject 0.3 mL intramuscularly as needed (Inject in thigh as needed for anaphylaxis and call 911). GENERIC OKAY amoxicillin-clavulanic acid (AUGMENTIN) 875-125 mg per tablet Take 1 tablet by mouth twice daily with meals. PHENYLephrine (ERWIN-SYNEPHRINE) 0.5 % spry Use 1 [place] in each nostril every 6 hours as needed. fluticasone (FLONASE) 50 mcg/actuation nasal spray Use 1 [place] in each nostril twice daily. I have confirmed and edited as necessary the chief complaint, medications, past medical, family and social histories obtained by others. Objective BP 90/64 Pulse 69 Temp 99.3 Ht 5' 7" (1.70m) Wt 273 lb (123.8kg) SpO2 96% BMI 42.75 kg/(m^2). Physical Exam Vitals and nursing note reviewed. HENT: Head: Normocephalic. Comments: There is tenderness to percussion over the frontal sinus Right Ear: External ear normal. Left Ear: External ear normal. Eyes: Pupils: Pupils are equal, round, and reactive to light. Cardiovascular: Rate and Rhythm: Normal rate and regular rhythm. Heart sounds: Normal heart sounds. Pulmonary: Effort: Pulmonary effort is normal. Breath sounds: Normal breath sounds. Abdominal: General: Bowel sounds are normal. Palpations: Abdomen is soft. There is no mass. Musculoskeletal: General: No tenderness. Normal range of motion. Cervical back: Normal range of motion and neck supple. Lymphadenopathy: Cervical: No cervical adenopathy. Skin: General: Skin is warm and dry. Neurological: Mental Status: He is alert and oriented to person, place, and time. Gait: Gait is intact. Deep Tendon Reflexes: Reflexes are normal and symmetric. Psychiatric: Mood and Affect: Mood and affect normal. ASSESSMENT/PLAN: 1. Bacterial sinusitis - ICD9: 473.9, 041.9, ICD10: J32.9, B96.89 (primary diagnosis) - AMOXICILLIN 875 MG-POTASSIUM CLAVULANATE 125 MG TABLET - PHENYLEPHRINE 0.5 % NASAL SPRAY 2. Seasonal allergic rhinitis, unspecified trigger - ICD9: 477.9, ICD10: J30.2 - FLUTICASONE PROPIONATE 50 MCG/ACTUATION NASAL SPRAY,SUSPENSION 3. Obesity, Class III, BMI >= 40 E66.01 - ICD9: 278.01, ICD10: E66.01 - TSH BLD 4. Wellness examination - ICD9: V70.0, ICD10: Z00.00 - HCV QUANT RNA BY PCR Discussed with patient diagnosis, use of Augmentin for 2 weeks along with phenylephrine nasal spray for congestion and Flonase nasal spray as a better alternative to systemic steroids due to their side effects. Follow-up if problem persists. Devon James Jr, MD No follow-ups on file. The above diagnoses & plan of care have been created and agreed upon with the patient. This note was partially generated using [employer] voice recognition system, and there may be some incorrect words, spellings, and punctuation that were not noted in checking the note before saving. documented in this encounter [facility] 03-25-2022 History of Present illness Narrative ED Follow Up: Patient discharged from [facility] ED on 03/24/2022. LVM FOR PT TO CALL IF NEEDED 1. How are you feeling since your ED visit? Have your symptoms improved or resolved? 2. Were you prescribed any medications while in the ED or advised to stop any medication? - If yes, were you able to fill your prescriptions? -if stopped medication, what was the medication? 3. Were you advised to schedule a follow up appointment with your provider? - If no, Do you feel like you need an appointment scheduled? - If yes, Do you need this scheduled now or has this already been scheduled? 4. Were you able to contact the office or transportation solutions manager provider prior to your ED visit? 5. Is there anything else I can do for you today? documented in this encounter [facility] 03-13-2022 Instructions Reba Kincaid PA-C - 03/13/2022 2:18 PM EDT ASSESSMENT/PLAN: 1. Acute non-recurrent maxillary sinusitis - - AMOXICILLIN 875 MG-POTASSIUM CLAVULANATE 125 MG TABLET - PREDNISONE 20 MG TABLET Encourage fluids, rest. OTC Decongestants Tylenol and Motrin for pain and fever Saline Nasil spray, Neti Pot, vaporizer, Vicks. Try Cepocol lozenges or Chloraseptic throat spray. Warm salt water gargles. Cough and deep breath- 10x/hr while awake. May use OTC Mucinex as directed for cough Call PCP if sx worsen or no better. If symptoms worsen, or new symptoms develop go to ER. If you have worsening of breathing or breathing changes- go to ER. If you have persistent fever unrelieved by Tylenol/Motrin- go to the ER. Follow up as needed. Barriers to learning: none. The patient verbalizes understanding and is in agreement with plan of care. - Red flags for in person care discussed - All questions answered Reba Kincaid PA-C documented in this encounter [facility] 03-13-2022 History of Present illness Narrative Surgical mask, face shield, N95, and gloves worn for all in-person care. 03/13/2022 Patient presents with: Rhinitis: pressure, headache, fatigue x 2 days SUBJECTIVE: This is a 46 year old that is here today for concern for URI symptoms. He has a h/o recurring sinusitis and pneumonia. He see ENT. He usual gets Doxy or Augmentin. Per EMR he usually gets antibiotics for sinus/cough, and has ended up with pneumonia after only a few days of symptoms. Today he complains of some mild sinus congestion for several days, but worse in the past 2 days. Has NICE, cheek pain, and worsened sinus pressure/congestion today. States he could not even put his dentures in today because his maxillary jaw aches so bad. Cough is minimal. Denies fever, chills, sweats, or fatigue. Patient denies wheezing, shortness of breath, increased WOB, or chest pain. Covid Immunization Dates COVID-19 VACCINE (Series Information) Completed 09/12/2021 Imm Admin: COVID-19 vaccine, age 12+ yr ([employer]) 02/12/2021 Imm Admin: COVID-19 vaccine ([employer]) 01/22/2021 Imm Admin: COVID-19 vaccine ([employer]) History of COVID: yes Influenza vaccine: yes Asthma: yes Pneumonia: yes Tobacco: none Pain on scale of 0-10 with 0 being no pain and 10 being greatest pain: 5- sinus pain Nothing makes the symptoms better. Nothing makes them worse. Self-treatment:. Sudafed The severity is mild and the symptoms are not improving. The patient did not have a similar problem in the last 3 months. The patient did not take any antibiotics in the last 3 months. Barriers to learning: none. Reviewed meds, OTCs, herbals or supplements. Reviewed allergies, medications, social history, and past medical history. PAST MEDICAL HISTORY Diagnosis Date Acute medial meniscus tear of right knee Anxiety Asthma Contact dermatitis Recurrence not specified. COVID-19 long hauler Depression Diverticulitis GERD (gastroesophageal reflux disease) Insufficiency fracture of tibia Migraines Obesity, morbid, BMI 40.0-49.9 ([facility]) Primary osteoarthritis of right knee Restless legs syndrome (RLS) Sinus infection ALLERGIES Bactrim [Sulfamethoxazole-Trimethoprim], Erythromycin Base, and Sulfa (Sulfonamide Antibiotics) MEDICATIONS Current Outpatient Medications Medication Sig cholestyramine-sucrose (QUESTRAN) 4 gram powder Take 2 g by mouth three times daily with meals. miconazole (LOTRIMIN AF, DESENEX) 2 % powder Apply 1 application to affected area twice daily. Ipratropium [place] (ATROVENT) 21 mcg (0.03 %) nasal spray Use 2 Sprays in the nose every 12 hours. benzonatate (TESSALON PERLES) 100 mg capsule Take 1 capsule by mouth three times daily as needed for cough. traZODone (DESYREL) 100 mg tablet Take 2 tablets by mouth daily at bedtime. budesonide-formoterol (SYMBICORT) 160-4.5 mcg/actuation inhaler Inhale 2 Puffs as instructed twice daily. topiramate (TOPAMAX) 100 mg tablet Take one pill at bedtime topiramate (TOPAMAX) 50 mg tablet Take 1 tablet by mouth daily at bedtime. To take along with 100 mg to equal 150 mg at bedtime gabapentin (NEURONTIN) 300 mg capsule Take 4 capsules by mouth as directed for 180 days. FLUoxetine (PROZAC) 10 mg capsule Take 2 capsules by mouth once daily. acyclovir (ZOVIRAX) 800 mg tablet Take one tablet by mouth 5 times a day as needed hydrOXYzine HCl (ATARAX) 25 mg tablet Take 1 tablet by mouth three times daily as needed for itching/rash. And anxiety alpha lipoic acid-biotin (ALAMAX CR) 600 mg- 450 mcg extended release tablet Take 1 tablet by mouth once daily. ResveraCel (Jolie) Take 2 capsules by mouth once daily. SUMAtriptan (IMITREX) 100 mg tablet Take 1 tablet by mouth as needed when migraine headache starts. May repeat in 2 hours if headache continues or returns. Do not exceed 4 tablets in 24 hours. selenium sulfide 2.5 % lotn Apply to eyebrows and davila region twice a week. allow to remain on for 5-10 minutes and rinse. ibuprofen (MOTRIN) 800 mg tablet Take 1 tablet by mouth every 8 hours as needed for pain. Melatonin-SR (Klaire/Prothera) Take 1 capsule (3 mg) one hour before bedtime Quercetin 120 ct. (Pure Encapsulations) Take 2 capsules twice daily between meals. Buffered Ascorbic Acid capsules (Pure Encapsulations) - Vitamin C 2 capsules twice a day with or between meals Zinc [place] ([employer]) Take 1 capsule by mouth daily with food. Vitamin D3 5000 International Units (Pure Encapsulations) Take 1 capsule by mouth daily with food. prazosin (MINIPRESS) 1 mg cap Take 1 capsule by mouth daily at bedtime. albuterol HFA (PROAIR HFA) 90 mcg/actuation inhaler Inhale 2 Puffs as instructed every 4 hours as needed. dicyclomine (BENTYL) 10 mg capsule Take 1 capsule by mouth before meals and at bedtime. EPINEPHrine (EPIPEN 2-ANDRE) 0.3 mg/0.3 mL auto-injector Inject 0.3 mL intramuscularly as needed (Inject in thigh as needed for anaphylaxis and call 911). GENERIC OKAY Current Facility-Administered Medications Medication Dose Route Frequency sodium chloride 0.9 % (flush) 10 mL (BD POSIFLUSH) 10 mL INTRAVENOUS DIRECTED PRN Medications and allergies reviewed by this provider. SOCIAL HISTORY Social History Tobacco Use Smoking status: Never Smoker Smokeless tobacco: Never Used Vaping Use Vaping Use: Never used Substance Use Topics Alcohol use: Yes Comment: < 1/week Drug use: No Comment: No reported history. REVIEW OF SYSTEMS Review of Systems ROS: constitutional: neg, HENT- sinus symptoms, Eyes- neg, heart-neg, respiratory- Cough, GI-neg, -neg, skin-neg, Allergy- neg, lymph-neg, neuro-neg, psych-neg- All systems neg except as noted above in HPI. OBJECTIVE: BP 126/76 Pulse 81 Temp 37.2 C (98.9 F) (Tympanic) Wt 124.7 kg (275 lb) SpO2 96% BMI 43.07 kg/m . Vital signs reviewed by this provider. Physical Exam AAOx3, no acute distress, patient is pleasant, well groomed, dressed appropriately. General: WD, WN, NAD, alert. HEENT: No facial erythema or swelling. Eyes: PERRL. EOMI. No erythema or discharge. -Ears: TMs pearly holly with light reflex, ear canals not red or swollen. +Clear, effusion bilaterally. -Nose-nasal mucosa injected. . +thick discharge. No polyps, nasal septum midline. -Throat: pharynx pink with no edema/mass/exudate/erythema, buccal mucosa pink and moist with no lesions. +thick post nasal drainage present on posterior pharynx. Tonsils are not enlarged. No erythema or exudate. Palate is equal. Uvula is midline- no erythema or edema. Head: + maxillary tenderness noted upon palpation. Neck: no masses or lymphadenopathy. Chest: CTA bilaterally with equal breath sounds; good air exchange throughout. No wheezing, rhonchi, or crackles; no retractions, tripoding, or nasal flaring noted. Heart: RRR, no murmur, rub, or gallop.. ASSESSMENT/PLAN: 1. Acute non-recurrent maxillary sinusitis - ICD9: 461.0, ICD10: J01.00 - AMOXICILLIN 875 MG-POTASSIUM CLAVULANATE 125 MG TABLET - PREDNISONE 20 MG TABLET - Declines COVID/flu testing. States "I've had COVID twice. This does not feel like it." Encourage fluids, rest. OTC Decongestants Tylenol and Motrin for pain and fever Saline Nasil spray, Neti Pot, vaporizer, Vicks. Try Cepocol lozenges or Chloraseptic throat spray. Warm salt water gargles. Cough and deep breath- 10x/hr while awake. May use OTC Mucinex as directed for cough Call PCP if sx worsen or no better. If symptoms worsen, or new symptoms develop go to ER. If you have worsening of breathing or breathing changes- go to ER. If you have persistent fever unrelieved by Tylenol/Motrin- go to the ER. Follow up as needed. Barriers to learning: none. The patient verbalizes understanding and is in agreement with plan of care. - Red flags for in person care discussed - All questions answered Reba Kincaid PA-C Medical Decision Making: Problems: Moderate: Acute illness with systemic symptoms Risk: Low: Low risk from testing/treatment Moderate: Drug management Medical Decision Making Level: 4 - Moderate I spent a total of 20 minutes on the date of the service which included preparing to see the patient, [id number] patient care, completing clinical documentation, performing a medically appropriate examination, counseling and educating the patient/family/caregiver and ordering medications, tests, or procedures. documented in this encounter [facility] 03-09-2022 History of Present illness Narrative Associated Order(s): Large Joint Arthro/Inj: L knee joint Post-Procedure Diagnose(s): Post-traumatic osteoarthritis of left knee Patient is here for left knee injection/s. Physical exam:normal appearing kne ASSESSMENT: (M17.32) Post-traumatic osteoarthritis of left knee (primary encounter diagnosis) PLAN: Viscosupplemetation injection number 3/3 Return if symptoms worsen or fail to improve. Part of this note has been created using voice recognition software. It may contain errors which are inherent in voice-recognition technology. Tre Serrano MD Injection performed as detailed below: Large Joint Arthro/Inj: L knee joint Informed Consent Consent Obtained: Verbal (Discussed risks including but not limited to infection, allergic reaction to the medication) [place] Protocol SIGN IN Personnel directly involved with the procedure wore the appropriate PPE. Special Equipment: N/A Patient/Surrogate Stated/Verified: Patient name, Relevant allergies and Intended procedure TIME OUT Intended patient and procedure match the source document(s). No relevant labs, photos, and/or imaging studies were applicable for review. No correct side/site applicable for marking and visibility. Medications required for procedure verified. No fire risk assessment and interventions applicable. No implant(s) inserted. 03/09/2022 9:26 AM The procedure site was prepped in the usual sterile fashion. Site: L knee joint Medications: 20 mg sodium hyaluronate 10 mg/mL(mw 2.4 -3.6 million) Outcome: Tolerated well, no immediate complications Post-injection instructions were reviewed with the patient and the patient voiced understanding of these instructions. SIGN OUT No specimen collected. No instruments, equipment or retained foreign bodies applicable. Post-procedure follow-up management communicated and Plan of Care Visit completed when applicable documented in this encounter [facility] 02-27-2022 History of Present illness Narrative Associated Order(s): Large Joint Arthro/Inj: L knee joint Post-Procedure Diagnose(s): Post-traumatic osteoarthritis of left knee Patient is here for L knee injection/s. Physical exam: L knee nl appearance ASSESSMENT: (M17.32) Post-traumatic osteoarthritis of left knee (primary encounter diagnosis) PLAN: Viscosupplemetation injection number 2/3 Return in about 1 week (around 03/06/2022). Part of this note has been created using voice recognition software. It may contain errors which are inherent in voice-recognition technology. Tre Serrano MD Injection performed as detailed below: Large Joint Arthro/Inj: L knee joint Informed Consent Consent Obtained: Verbal (Discussed risks including but not limited to infection, allergic reaction to the medication) [place] Protocol SIGN IN Personnel directly involved with the procedure wore the appropriate PPE. Special Equipment: N/A Patient/Surrogate Stated/Verified: Patient name, Relevant allergies and Intended procedure TIME OUT Intended patient and procedure match the source document(s). No relevant labs, photos, and/or imaging studies were applicable for review. No correct side/site applicable for marking and visibility. Medications required for procedure verified. No fire risk assessment and interventions applicable. No implant(s) inserted. 02/27/2022 3:44 PM The procedure site was prepped in the usual sterile fashion. Site: L knee joint Medications: 20 mg sodium hyaluronate 10 mg/mL(mw 2.4 -3.6 million) Outcome: Tolerated well, no immediate complications Post-injection instructions were reviewed with the patient and the patient voiced understanding of these instructions. SIGN OUT No specimen collected. No instruments, equipment or retained foreign bodies applicable. Post-procedure follow-up management communicated and Plan of Care Visit completed when applicable documented in this encounter [facility] 02-20-2022 History of Present illness Narrative Associated Order(s): Large Joint Arthro/Inj: L knee joint Post-Procedure Diagnose(s): Post-traumatic osteoarthritis of left knee Patient is here for left injection/s. Physical exam: Left knee: Normal appearance of the left knee ASSESSMENT: (M17.32) Post-traumatic osteoarthritis of left knee (primary encounter diagnosis) PLAN: Viscosupplemetation injection number 1/3 Patient to follow-up in 1 week's time Discussed patient not being candidate for total knee arthroplasty at this stage, discussed referral to pain management for genicular nerve block if this is not successful. Return in about 1 week (around 02/27/2022). Part of this note has been created using voice recognition software. It may contain errors which are inherent in voice-recognition technology. Tre Serrano MD Injection performed as detailed below: Large Joint Arthro/Inj: L knee joint Informed Consent Consent Obtained: Verbal (Discussed risks including but not limited to infection, allergic reaction to the medication) [place] Protocol SIGN IN Personnel directly involved with the procedure wore the appropriate PPE. Special Equipment: N/A Patient/Surrogate Stated/Verified: Patient name, Relevant allergies and Intended procedure TIME OUT Intended patient and procedure match the source document(s). No relevant labs, photos, and/or imaging studies were applicable for review. No correct side/site applicable for marking and visibility. Medications required for procedure verified. No fire risk assessment and interventions applicable. No implant(s) inserted. 02/20/2022 3:43 PM The procedure site was prepped in the usual sterile fashion. Site: L knee joint Medications: 20 mg sodium hyaluronate 10 mg/mL(mw 2.4 -3.6 million) Outcome: Tolerated well, no immediate complications Post-injection instructions were reviewed with the patient and the patient voiced understanding of these instructions. SIGN OUT No specimen collected. No instruments, equipment or retained foreign bodies applicable. Post-procedure follow-up management communicated and Plan of Care Visit completed when applicable documented in this encounter [facility] 02-09-2022 Instructions Agapito Hale MD - 02/09/2022 1:29 PM EDT Thank you for coming to see us today! We appreciate your confidence in choosing [facility] for your medical care. Nystatin [id number] units 1 tablet twice daily for 30 days - notify me of mood , skin concerns following completion via MyChart. Continue use of cholestyramine at this time for bile salt diarrhea concerns. Titrate to effect. If you have any questions about your visit today please call our office and my staff will forward your message to me. I will get back to you as soon as possible. You are getting better and better every day, in every way! Agapito Hale MD [facility] documented in this encounter [facility] 02-09-2022 History of Present illness Narrative Images from the original note were not included. SUBJECTIVE: Patient presents with: Follow Up Patient returns for the medically necessary reevaluation of the following concern(s): Diarrhea - noting "normal" at this time. 1 to 2 times per day. Noting use of cholestyramine (using once daily). No blood or mucus. No colorectal screening performed. Sinus congestion -noting recurrence. Not helped with seasonal changes at present time. Numerous courses of antibiotics noted. Cost prohibitive to use intranasal itraconazole. Currently is on trazodone limiting use of oral itraconazole (fungal?) Rash - noting along left elbow. Itching at this time. No blistering. Slight bumps noted Weight reduction -noting at present time. Continues to feel making slight progress with dietary changes and modifications. 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 COVID-19 long hauler Depression Diverticulitis GERD (gastroesophageal reflux disease) Insufficiency fracture of tibia Migraines Obesity, morbid, BMI 40.0-49.9 (HCC) Primary osteoarthritis of right knee Restless legs syndrome (RLS) Sinus infection PAST SURGICAL HISTORY Procedure Laterality Date CARPAL TUNNEL Right CHOLECYSTECTOMY HX in 1999 KNEE SURGERY HX Right scope and tibial transfer ORTHOPEDICS SURGERY HX Right Right Knee PAST SURGICAL HISTORY OF teeth removed TONSILLECTOMY HX FAMILY HISTORY Problem Relation Age of Onset Stroke Mother Lipids Mother Hypertension Mother Obesity Mother Asthma Mother COPD Mother Lipids Father Hypertension Father Alcohol/Drug Father Restless legs syndrome No Family History Obstructive Sleep Apnea No Family History Social History Tobacco Use Smoking status: Never Smoker Smokeless tobacco: Never Used Vaping Use Vaping Use: Never used Substance Use Topics Alcohol use: Yes Comment: < 1/week Drug use: No Comment: No reported history. Immunization History Administered Date(s) Administered COVID-19 vaccine, age 12+ yr ([employer] - PURPLE TOP) 01/22/2021 02/12/2021 09/12/2021 Hepatitis A Adult 01/27/2010 Hepatitis B Adult 01/27/2010 Influenza Seasonal Inj Quad Age 6 Mo - 64 Yrs 10/29/2020 09/02/2021 Influenza Seasonal Inj Quad Age 6 Mo-64 Yrs Pres Free 10/19/2019 Influenza, Split (Including Purified Surface Antigen) 08/10/2007 12/27/2009 09/01/2010 Novel Influenza H1N1, injectable 12/27/2009 Pneumovax 01/20/2018 Tdap (Age 7+) 12/27/2009 08/03/2016 03/03/2021 ACTIVE PROBLEM LIST Primary Osteoarthritis of Right Knee Pain in Right Knee Contact Dermatitis Mass On Back Restless Leg Syndrome Migraine With Aura and Without Status Migrainosus, Not Intractable Eczema Obesity, Class III, BMI >= 40 E66.01 Posterior Tibial Tendinitis of Left Leg Sinus Tarsi Syndrome of Left Ankle Obesity, Morbid, Bmi 40.0-49.9 (Hcc) Diverticulosis Chronic Nonintractable Headache Closed Fracture of Bone of Right Foot Intractable Migraine Without Aura and Without Status Migrainosus Seasonal Allergic Rhinitis Due to Pollen History of Shingles Bronchitis, Mucopurulent Recurrent (Hcc) S/P Left Knee Surgery Lis (Obstructive Sleep Apnea) 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 Hair and Dander Allergic Rhinitis Allergic Rhinitis Due to Mold Allergic Rhinitis Due to Dust Mite Dyspnea and Respiratory Abnormalities Pleuritic Chest Pain Moderate Asthma Anxiety and Depression Corneal Subepithelial Haze of Left Eye Refractive Error History of Strabismus Surgery Vitreous Syneresis of Both Eyes Left Flank Pain Malodorous Urine Right Kidney Stone Chronic Sinusitis Current Outpatient Medications on File Prior to Visit Medication Sig cholestyramine-sucrose (QUESTRAN) 4 gram powder Take 2 g by mouth three times daily with meals. miconazole (LOTRIMIN AF, DESENEX) 2 % powder Apply 1 application to affected area twice daily. Ipratropium [place] (ATROVENT) 21 mcg (0.03 %) nasal spray Use 2 Sprays in the nose every 12 hours. benzonatate (TESSALON PERLES) 100 mg capsule Take 1 capsule by mouth three times daily as needed for cough. traZODone (DESYREL) 100 mg tablet Take 2 tablets by mouth daily at bedtime. budesonide-formoterol (SYMBICORT) 160-4.5 mcg/actuation inhaler Inhale 2 Puffs as instructed twice daily. topiramate (TOPAMAX) 100 mg tablet Take one pill at bedtime topiramate (TOPAMAX) 50 mg tablet Take 1 tablet by mouth daily at bedtime. To take along with 100 mg to equal 150 mg at bedtime gabapentin (NEURONTIN) 300 mg capsule Take 4 capsules by mouth as directed for 180 days. FLUoxetine (PROZAC) 10 mg capsule Take 2 capsules by mouth once daily. acyclovir (ZOVIRAX) 800 mg tablet Take one tablet by mouth 5 times a day as needed hydrOXYzine HCl (ATARAX) 25 mg tablet Take 1 tablet by mouth three times daily as needed for itching/rash. And anxiety alpha lipoic acid-biotin (ALAMAX CR) 600 mg- 450 mcg extended release tablet Take 1 tablet by mouth once daily. ResveraCel (Jolie) Take 2 capsules by mouth once daily. SUMAtriptan (IMITREX) 100 mg tablet Take 1 tablet by mouth as needed when migraine headache starts. May repeat in 2 hours if headache continues or returns. Do not exceed 4 tablets in 24 hours. selenium sulfide 2.5 % lotn Apply to eyebrows and davila region twice a week. allow to remain on for 5-10 minutes and rinse. ibuprofen (MOTRIN) 800 mg tablet Take 1 tablet by mouth every 8 hours as needed for pain. Melatonin-SR (Klaire/Prothera) Take 1 capsule (3 mg) one hour before bedtime Quercetin 120 ct. (Pure Encapsulations) Take 2 capsules twice daily between meals. Buffered Ascorbic Acid capsules (Pure Encapsulations) - Vitamin C 2 capsules twice a day with or between meals Zinc [place] ([employer]) Take 1 capsule by mouth daily with food. Vitamin D3 5000 International Units (Pure Encapsulations) Take 1 capsule by mouth daily with food. prazosin (MINIPRESS) 1 mg cap Take 1 capsule by mouth daily at bedtime. albuterol HFA (PROAIR HFA) 90 mcg/actuation inhaler Inhale 2 Puffs as instructed every 4 hours as needed. dicyclomine (BENTYL) 10 mg capsule Take 1 capsule by mouth before meals and at bedtime. EPINEPHrine (EPIPEN 2-ANDRE) 0.3 mg/0.3 mL auto-injector Inject 0.3 mL intramuscularly as needed (Inject in thigh as needed for anaphylaxis and call 911). GENERIC OKAY Current Facility-Administered Medications on File Prior to Visit Medication sodium chloride 0.9 % (flush) 10 mL (BD POSIFLUSH) SUBJECTIVE: Patient presents with: Follow Up Patient returns for the medically necessary reevaluation of the following concern(s): Diarrhea - noting hx at this time. Moving bowel 6x per day. No blood. Visit with ED on 12/27/21. . Attempting fiber with diet at this time. Bloating / cramping. Numerous use of Abx for sinus infection. No blood or mucus. No stool testing performed. Noting frequency causing rash along inguinal region at this time. Hx of cholecystectomy in PAST MEDICAL HISTORY Diagnosis Date Acute medial meniscus tear of right knee Anxiety Asthma Contact dermatitis Recurrence not specified. COVID-19 long hauler Depression Diverticulitis GERD (gastroesophageal reflux disease) Insufficiency fracture of tibia Migraines Obesity, morbid, BMI 40.0-49.9 ([facility]) Primary osteoarthritis of right knee Restless legs syndrome (RLS) Sinus infection PAST SURGICAL HISTORY Procedure Laterality Date CARPAL TUNNEL Right CHOLECYSTECTOMY HX in 1999 KNEE SURGERY HX Right scope and tibial transfer ORTHOPEDICS SURGERY HX Right Right Knee PAST SURGICAL HISTORY OF teeth removed TONSILLECTOMY HX FAMILY HISTORY Problem Relation Age of Onset Stroke Mother Lipids Mother Hypertension Mother Obesity Mother Asthma Mother COPD Mother Lipids Father Hypertension Father Alcohol/Drug Father Restless legs syndrome No Family History Obstructive Sleep Apnea No Family History Social History Tobacco Use Smoking status: Never Smoker Smokeless tobacco: Never Used Vaping Use Vaping Use: Never used Substance Use Topics Alcohol use: Yes Comment: < 1/week Drug use: No Comment: No reported history. Immunization History Administered Date(s) Administered COVID-19 vaccine, age 12+ yr ([employer] - PURPLE TOP) 01/22/2021 02/12/2021 09/12/2021 Hepatitis A Adult 01/27/2010 Hepatitis B Adult 01/27/2010 Influenza Seasonal Inj Quad Age 6 Mo - 64 Yrs 10/29/2020 09/02/2021 Influenza Seasonal Inj Quad Age 6 Mo-64 Yrs Pres Free 10/19/2019 Influenza, Split (Including Purified Surface Antigen) 08/10/2007 12/27/2009 09/01/2010 Novel Influenza H1N1, injectable 12/27/2009 Pneumovax 01/20/2018 Tdap (Age 7+) 12/27/2009 08/03/2016 03/03/2021 ACTIVE PROBLEM LIST Primary Osteoarthritis of Right Knee Pain in Right Knee Contact Dermatitis Mass On Back Restless Leg Syndrome Migraine With Aura and Without Status Migrainosus, Not Intractable Eczema Obesity, Class III, BMI >= 40 E66.01 Posterior Tibial Tendinitis of Left Leg Sinus Tarsi Syndrome of Left Ankle Obesity, Morbid, Bmi 40.0-49.9 (Hcc) Diverticulosis Chronic Nonintractable Headache Closed Fracture of Bone of Right Foot Intractable Migraine Without Aura and Without Status Migrainosus Seasonal Allergic Rhinitis Due to Pollen History of Shingles Bronchitis, Mucopurulent Recurrent (Hcc) S/P Left Knee Surgery Lis (Obstructive Sleep Apnea) 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 Hair and Dander Allergic Rhinitis Allergic Rhinitis Due to Mold Allergic Rhinitis Due to Dust Mite Dyspnea and Respiratory Abnormalities Pleuritic Chest Pain Moderate Asthma Anxiety and Depression Corneal Subepithelial Haze of Left Eye Refractive Error History of Strabismus Surgery Vitreous Syneresis of Both Eyes Left Flank Pain Malodorous Urine Right Kidney Stone Chronic Sinusitis Current Outpatient Medications on File Prior to Visit Medication Sig Ipratropium [place] (ATROVENT) 21 mcg (0.03 %) nasal spray Use 2 Sprays in the nose every 12 hours. benzonatate (TESSALON PERLES) 100 mg capsule Take 1 capsule by mouth three times daily as needed for cough. traZODone (DESYREL) 100 mg tablet Take 2 tablets by mouth daily at bedtime. budesonide-formoterol (SYMBICORT) 160-4.5 mcg/actuation inhaler Inhale 2 Puffs as instructed twice daily. topiramate (TOPAMAX) 100 mg tablet Take one pill at bedtime topiramate (TOPAMAX) 50 mg tablet Take 1 tablet by mouth daily at bedtime. To take along with 100 mg to equal 150 mg at bedtime gabapentin (NEURONTIN) 300 mg capsule Take 4 capsules by mouth as directed for 180 days. FLUoxetine (PROZAC) 10 mg capsule Take 2 capsules by mouth once daily. acyclovir (ZOVIRAX) 800 mg tablet Take one tablet by mouth 5 times a day as needed hydrOXYzine HCl (ATARAX) 25 mg tablet Take 1 tablet by mouth three times daily as needed for itching/rash. And anxiety alpha lipoic acid-biotin (ALAMAX CR) 600 mg- 450 mcg extended release tablet Take 1 tablet by mouth once daily. ResveraCel (Jolie) Take 2 capsules by mouth once daily. SUMAtriptan (IMITREX) 100 mg tablet Take 1 tablet by mouth as needed when migraine headache starts. May repeat in 2 hours if headache continues or returns. Do not exceed 4 tablets in 24 hours. selenium sulfide 2.5 % lotn Apply to eyebrows and davila region twice a week. allow to remain on for 5-10 minutes and rinse. ibuprofen (MOTRIN) 800 mg tablet Take 1 tablet by mouth every 8 hours as needed for pain. Melatonin-SR (Klaire/Prothera) Take 1 capsule (3 mg) one hour before bedtime Quercetin 120 ct. (Pure Encapsulations) Take 2 capsules twice daily between meals. Buffered Ascorbic Acid capsules (Pure Encapsulations) - Vitamin C 2 capsules twice a day with or between meals Zinc [place] ([employer]) Take 1 capsule by mouth daily with food. Vitamin D3 5000 International Units (Pure Encapsulations) Take 1 capsule by mouth daily with food. prazosin (MINIPRESS) 1 mg cap Take 1 capsule by mouth daily at bedtime. albuterol HFA (PROAIR HFA) 90 mcg/actuation inhaler Inhale 2 Puffs as instructed every 4 hours as needed. dicyclomine (BENTYL) 10 mg capsule Take 1 capsule by mouth before meals and at bedtime. EPINEPHrine (EPIPEN 2-ANDRE) 0.3 mg/0.3 mL auto-injector Inject 0.3 mL intramuscularly as needed (Inject in thigh as needed for anaphylaxis and call 911). GENERIC OKAY Current Facility-Administered Medications on File Prior to Visit Medication sodium chloride 0.9 % (flush) 10 mL (BD POSIFLUSH) Review of Systems Constitutional: Negative for activity change, appetite change, chills, diaphoresis, fatigue, fever and unexpected weight change. HENT: Negative for congestion, ear pain, hearing loss, mouth sores, sinus pressure, sore throat and trouble swallowing. Respiratory: Negative for cough, chest tightness and shortness of breath. Cardiovascular: Negative for chest pain, palpitations and leg swelling. Gastrointestinal: Positive for abdominal pain and diarrhea. Negative for blood in stool, constipation, nausea and vomiting. Endocrine: Negative for polydipsia, polyphagia and polyuria. Genitourinary: Negative for dysuria and frequency. Musculoskeletal: Negative for back pain, joint swelling and myalgias. Skin: Positive for rash. Neurological: Negative for dizziness, light-headedness, numbness and headaches. Psychiatric/Behavioral: Negative for behavioral problems, decreased concentration and sleep disturbance. 02/09/22 1256 BP: 112/80 Pulse: 79 SpO2: 97% Weight: 127.2 kg (280 lb 6.4 oz) Height: 170.2 cm (5' 7") Physical Exam Vitals and nursing note reviewed. Constitutional: Appearance: Normal appearance. He is morbidly obese. HENT: Head: Normocephalic and atraumatic. Right Ear: Hearing and external ear normal. Left Ear: Hearing and external ear normal. Eyes: General: Lids are normal. Extraocular Movements: Extraocular movements intact. Cardiovascular: Rate and Rhythm: Normal rate and regular rhythm. Heart sounds: Normal heart sounds. Pulmonary: Effort: No prolonged expiration or respiratory distress. Breath sounds: Normal breath sounds and air entry. No decreased breath sounds, wheezing or rhonchi. Abdominal: General: Abdomen is protuberant. Bowel sounds are normal. There is no distension. Palpations: Abdomen is soft. Tenderness: There is no abdominal tenderness. Musculoskeletal: Cervical back: No pain with movement. Skin: General: Skin is warm. Capillary Refill: Capillary refill takes less than 2 seconds. Findings: Rash (see diagram ) present. No erythema. Rash is not crusting. Comments: Redness along inguinal folds (left > right). No pustules noted. Neurological: Mental Status: He is alert. Psychiatric: Attention and Perception: Attention and perception normal. Mood and Affect: Mood normal. Speech: Speech normal. Behavior: Behavior normal. Thought Content: Thought content normal. Cognition and Memory: Cognition and memory normal. Judgment: Judgment normal. ASSESSMENT/PLAN: 1. 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 ? Use of binder at this time to limit bile salt aspect with meals. Slowly increase to TID use - may created constipation. - ? Avoid excessive fructose other sugars at this time More fiber bulking with psyllium - CHOLESTYRAMINE (WITH SUGAR) 4 GRAM ORAL POWDER 2. History of cholecystectomy - ICD9: V45.79, ICD10: Z90.49 3. Fungal dermatitis - ICD9: 111.9, ICD10: B36.9 - MICONAZOLE NITRATE 2 % TOPICAL POWDER 4. Obesity, morbid, BMI 40.0-49.9 ([facility]) - ICD9: 278.01, ICD10: E66.01 Agapito Hale MD Review of Systems Constitutional: Negative for activity change, appetite change, chills, diaphoresis, fatigue, fever and unexpected weight change. HENT: Negative for congestion, ear pain, hearing loss, mouth sores, sinus pressure, sore throat and trouble swallowing. Respiratory: Negative for cough, chest tightness and shortness of breath. Cardiovascular: Negative for chest pain, palpitations and leg swelling. Gastrointestinal: Negative for abdominal distention, blood in stool, constipation, diarrhea, nausea and vomiting. Genitourinary: Negative for dysuria and frequency. Musculoskeletal: Positive for arthralgias (Knees) and myalgias. Negative for back pain and joint swelling. Skin: Positive for rash (arms / elbow (left > right)). Neurological: Negative for dizziness, light-headedness, numbness and headaches. Psychiatric/Behavioral: Negative for behavioral problems, decreased concentration and sleep disturbance. 02/09/22 1256 BP: 112/80 Pulse: 79 SpO2: 97% Weight: 127.2 kg (280 lb 6.4 oz) Height: 170.2 cm (5' 7") Physical Exam Vitals reviewed. Constitutional: Appearance: Normal appearance. He is morbidly obese. HENT: Head: Normocephalic and atraumatic. Right Ear: Hearing and external ear normal. Left Ear: Hearing and external ear normal. Eyes: General: Lids are normal. Extraocular Movements: Extraocular movements intact. Cardiovascular: Rate and Rhythm: Normal rate and regular rhythm. Pulmonary: Effort: Pulmonary effort is normal. Breath sounds: Normal breath sounds. No decreased breath sounds, wheezing, rhonchi or rales. Musculoskeletal: Cervical back: No pain with movement. Skin: General: Skin is warm. Capillary Refill: Capillary refill takes less than 2 seconds. Comments: Left elbow with slight raised bumps. No pustules. No macules noted. Neurological: Mental Status: He is alert. Psychiatric: Attention and Perception: Attention and perception normal. Mood and Affect: Mood normal. Affect is flat. Speech: Speech normal. Behavior: Behavior normal. Thought Content: Thought content normal. Cognition and Memory: Cognition and memory normal. Judgment: Judgment normal. ASSESSMENT/PLAN: 1. 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 Still titrating cholestyramine. This also may be helping slightly with any mold toxins which she may be holding onto but have not been fully proven yet. Would like him to continue this and adjust course accordingly due to his absence of gallbladder. 2. 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 Feel this may be more systemic manifestation given his obesity and skinfold concerns in past. 3. Chronic pain of left knee - ICD9: 719.46, 338.29, ICD10: M25.562, G89.29 4. Recurrent sinus infections - ICD9: 473.9, ICD10: J32.9 As above. Nasal antifungal cost prohibitive at present time. Will attempt utilization of can colonization with any Stormy 5. Obesity, morbid, BMI 40.0-49.9 ([facility]) - ICD9: 278.01, ICD10: E66.01 Agapito Hale MD documented in this encounter [facility] 08-15-2021 Note HNO ID: [id number] Author: Liborio Newton MD Service: ? Author Type: Physician Type: Progress Notes Filed: 08/16/2021 7:00 AM Note Text: [facility] - [facility] New Patient Consultation PATIENT NAME: Sam Rai DATE OF SERVICE: August 15, 2021 CONSULTING PROVIDER: Lisa Levine [address] [facility] [id number] Subjective CHIEF CONCERN: Feeling tired HISTORY OF PRESENT ILLNESS: Sam Rai is a 45 year old man with obesity, anxiety and depression, migraines, and obstructive sleep apnea on CPAP, and COVID-19 infection in November 2020 with recurrent subsequent respiratory infections this year, who is here for symptoms of fatigue and sleepiness., The consultation was requested by Lisa Levine APRN CNP for evaluation of restless legs syndrome obstructive sleep apnea on CPAP, hypersomnia, and fatigue. My final assessment and recommendations will be communicated back to the requesting provider through the electronic medical record or by fax/US mail. He was referred from the post-COVID clinic. They were trying to piece together what can be done to feel back to normal. He is constantly tired and fatigued. His first one was in November and then May. He is just getting over pneumonia now. In November, he had a viral infection and then bacterial. In May, they were not sure. Recently, he was told he had a viral pneumonia. He had antivirals and antibiotics. He was told his immune system was low. He is not on CPAP. He has a machine, but they told him to stop using it. He was not breathing well at all. It felt like he was suffocating when he had COVID. They wanted to see how things go. He still does not breathe well. He has not used it since being told to stop. General sleep: ? Bedroom partner: sleeps separately ? Bedtime: 9-10 PM (9-10 PM weekends) ? Wake time: 7 AM (7 AM weekends); changing since being off work ? Sleep-onset latency: 30+ minutes or more; he tosses and turns ? Medications for sleep: Yes, trazodone, just increased to 2 x 50 mg; has been on it for years ? Awakenings from sleep: tossing and turning ? Nocturia: no ? Position: all positions ? Excessive daytime sleepiness: Yes ? Daytime fatigue/tiredness: Yes ? Naps: Yes, 2-3 times per week; 30-120 minutes ? Caffeine or stimulant use: No, rarely ? Drowsiness when driving: No Symptoms of Restless Legs Syndrome: He has restless legs syndrome and takes Neurontin. He had knee surgery on his left leg. He has gone back 3-4 times and complained that it is not right. It still hurts. He said there is nothing wrong. From the knee down, it can get cold. His ankle will hurt. When he has restless legs, it is like little ants moving. It happens more at nighttime. It has gone on forever. It is worse in the left leg. He has the urge to move the legs, more in the left. It is happening more at night, but sometimes during the day. He can do things during the day. He takes Neurontin 300-400 mg every night before bed. He starts with 3 and goes up to 4. It has been doing very well until recently. He has never been on iron supplements. He does eat red meat. He scheduled next week for labwork. Sleep-related Behaviors: ? Problems with nightmares: Yes, he takes 1 mg prazosin, but they have not increased it. He has nightmares a few times per week. He is going to [employer]. The therapist he had originally put him on it. DME: unknown Device: [employer]? Mask: full face mask PATIENT-ENTERED QUESTIONNAIRE SLEEP SCORES Sleep Questions 08/15/2021 Reason for visit: Difficulty falling or staying asleep or poor sleep quality, Excessive daytime sleepiness, Restless Legs Syndrome Average hours slept in 24 hours: 10 Accidents or near accidents due to drowsy drivin [place] Sleepiness Scale 10/27/2020 08/15/2021 Score 5 (No daytime sleepiness) 13 (present daytime sleepiness) PROMIS CAT Sleep Disturbance 06/20/2021 08/15/2021 PROMIS Sleep Disturbance T-Score 65 (moderate) 58 (mild) Insomnia Severity Index 08/15/2021 Score 12 Restless Leg Syndrome 08/15/2021 Score 24 PHQ-9 06/20/2021 08/15/2021 Score 11 8 PROMIS Global Health - (T-Scores - the mean of general population = 50. Five points is a clinically meaningful difference.) 06/24/2020 01/13/2021 06/22/2021 Physical T-Score 39.8 39.8 34.9 Mental T-Score 36.3 36.3 33.8 MEDICAL HISTORY REVIEWED: PAST MEDICAL HISTORY Diagnosis Date - Acute medial meniscus tear of right knee - Anxiety - Asthma - Contact dermatitis Recurrence not specified. - COVID-19 long hauler - Depression - Diverticulitis - GERD (gastroesophageal reflux disease) - Insufficiency fracture of tibia - Migraines - Obesity, morbid, BMI 40.0-49.9 ([facility]) - Primary osteoarthritis of right knee - Restless legs syndrome (RLS) - Sinus infection ACTIVE PROBLEM LIST Primary Osteoarthritis of Right Knee Pain i (more content not included)... [facility] 01-13-2021 History of Past i llness Narrative Problem Noted Date Resolved Date Chronic pain of left knee 01/13/20212020 Mild persistent asthma 10/29/2020 1 Wheezing 03/13/2020 07/22/2021 Exotropia of right eye 07/07/2019 9 Mild intermittent asthma without complication 07/22/2021 Aftercare following surgery 01/19/20170 05/2020 Acute medial meniscus tear of right knee 015 09/04/2015 documented as of this encounter (statuses as of 02/09/2022) [facility] History of Past illness Narrative* Problem Noted Date Resolved Date Chronic pain of left knee 01/13/20212020 Mild persistent asthma 10/29/2020 1 Wheezing 03/13/2020 07/22/2021 Exotropia of right eye 07/07/2019 9 Mild intermittent asthma without complication 07/22/2021 Aftercare following surgery 01/19/20170 05/2020 Acute medial meniscus tear of right knee 015 09/04/2015 documented as of this encounter (statuses as of 02/20/2022) [facility] History of Past illness Narrative* Problem Noted Date Resolved Date Chronic pain of left knee 01/13/20212020 Mild persistent asthma 10/29/2020 1 Wheezing 03/13/2020 07/22/2021 Exotropia of right eye 07/07/2019 9 Mild intermittent asthma without complication 07/22/2021 Aftercare following surgery 01/19/2017 08/0 05/2020 Acute medial meniscus tear of right knee 2 015 09/04/2015 documented as of this encounter (statuses as of 02/27/2022) [facility] History of Past illness Narrative* Problem Noted Date Resolved Date Chronic pain of left knee 01/13/20212020 Mild persistent asthma 10/29/2020 1 Wheezing 03/13/2020 07/22/2021 Exotropia of right eye 07/07/2019 9 Mild intermittent asthma without complication 07/22/2021 Aftercare following surgery 01/19/2017 080 05/2020 Acute medial meniscus tear of right knee 015 09/04/2015 documented as of this encounter (statuses as of 03/09/2022) [facility] History of Past illness Narrative* Problem Noted Date Resolved Date Chronic pain of left knee 01/13/20212020 Mild persistent asthma 10/29/2020 1 Wheezing 03/13/2020 07/22/2021 Exotropia of right eye 07/07/2019 9 Mild intermittent asthma without complication 07/22/2021 Aftercare following surgery 01/19/2017 08/0 05/2020 Acute medial meniscus tear of right knee 2 015 09/04/2015 documented as of this encounter (statuses as of 03/13/2022) [facility] History of Past illness Narrative* Problem Noted Date Resolved Date Chronic pain of left knee 01/13/20212020 Mild persistent asthma 10/29/2020 1 Wheezing 03/13/2020 07/22/2021 Exotropia of right eye 07/07/2019 9 Mild intermittent asthma without complication 07/22/2021 Aftercare following surgery 01/19/201705/2020 Acute medial meniscus tear of right knee 08/19/2 015 09/04/2015 documented as of this encounter (statuses as of 03/25/2022) [facility] History of Past illness Narrative* Problem Noted Date Resolved Date Chronic pain of left knee 01/13/20212020 Mild persistent asthma 10/29/2020 1 Wheezing 03/13/2020 07/22/2021 Exotropia of right eye 07/07/2019 9 Mild intermittent asthma without complication 07/22/2021 Aftercare following surgery 01/19/20170 05/2020 Acute medial meniscus tear of right knee 2 015 09/04/2015 documented as of this encounter (statuses as of 04/07/2022) [facility] History of Past illness Narrative* Problem Noted Date Resolved Date Chronic pain of left knee 01/13/20212020 Mild persistent asthma 10/29/2020 1 Wheezing 03/13/2020 07/22/2021 Exotropia of right eye 07/07/2019 9 Mild intermittent asthma without complication 07/22/2021 Aftercare following surgery 01/19/201705/2020 Acute medial meniscus tear of right knee 2 015 09/04/2015 documented as of this encounter (statuses as of 04/14/2022) [facility] History of Past illness Narrative* Problem Noted Date Resolved Date Chronic pain of left knee 01/13/20212020 Mild persistent asthma 10/29/2020 1 Wheezing 03/13/2020 07/22/2021 Exotropia of right eye 07/07/2019 9 Mild intermittent asthma without complication 07/22/2021 Aftercare following surgery 01/19/201705/2020 Acute medial meniscus tear of right knee 08/19/2 015 09/04/2015 documented as of this encounter (statuses as of 04/23/2022) [facility] History of Past illness Narrative* Problem Noted Date Resolved Date Chronic pain of left knee 01/13/20212020 Mild persistent asthma 10/29/2020 1 Wheezing 03/13/2020 07/22/2021 Exotropia of right eye 07/07/2019 9 Mild intermittent asthma without complication 07/22/2021 Aftercare following surgery 01/19/2017 080 05/2020 Acute medial meniscus tear of right knee 015 09/04/2015 documented as of this encounter (statuses as of 06/17/2022) [facility] History of Past illness Narrative* Problem Noted Date Resolved Date Chronic pain of left knee 01/13/20212020 Mild persistent asthma 10/29/2020 1 Wheezing 03/13/2020 07/22/2021 Exotropia of right eye 07/07/2019 9 Mild intermittent asthma without complication 07/22/2021 Aftercare following surgery 01/19/2017 080 05/2020 Acute medial meniscus tear of right knee 015 09/04/2015 documented as of this encounter (statuses as of 06/18/2022) [facility] History of Past illness Narrative* Problem Noted Date Resolved Date Chronic pain of left knee 01/13/20212020 Mild persistent asthma 10/29/2020 1 Wheezing 03/13/2020 07/22/2021 Exotropia of right eye 07/07/2019 9 Mild intermittent asthma without complication 07/22/2021 Aftercare following surgery 01/19/2017 080 05/2020 Acute medial meniscus tear of right knee 015 09/04/2015 documented as of this encounter (statuses as of 06/19/2022) [facility] History of Past illness Narrative* Problem Noted Date Resolved Date Chronic pain of left knee 01/13/20212020 Mild persistent asthma 10/29/2020 1 Wheezing 03/13/2020 07/22/2021 Exotropia of right eye 07/07/2019 9 Mild intermittent asthma without complication 07/22/2021 Aftercare following surgery 01/19/20170 05/2020 Acute medial meniscus tear of right knee 08/19/2 015 09/04/2015 documented as of this encounter (statuses as of 07/02/2022) [facility] History of Past illness Narrative* Problem Noted Date Resolved Date Chronic pain of left knee 01/13/20212020 Mild persistent asthma 10/29/2020 1 Wheezing 03/13/2020 07/22/2021 Exotropia of right eye 07/07/2019 9 Mild intermittent asthma without complication 07/22/2021 Aftercare following surgery 01/19/20170 05/2020 Acute medial meniscus tear of right knee 2 015 09/04/2015 documented as of this encounter (statuses as of 07/03/2022) [facility] History of Past illness Narrative* Problem Noted Date Resolved Date Chronic pain of left knee 01/13/20212020 Mild persistent asthma 10/29/2020 1 Wheezing 03/13/2020 07/22/2021 Exotropia of right eye 07/07/2019 9 Mild intermittent asthma without complication 07/22/2021 Aftercare following surgery 01/19/201705/2020 Acute medial meniscus tear of right knee 2 015 09/04/2015 documented as of this encounter (statuses as of 07/08/2022) [facility] History of Past illness Narrative* Problem Noted Date Resolved Date Chronic pain of left knee 01/13/20212020 Mild persistent asthma 10/29/2020 1 Wheezing 03/13/2020 07/22/2021 Exotropia of right eye 07/07/2019 9 Mild intermittent asthma without complication 07/22/2021 Aftercare following surgery 01/19/20170 05/2020 Acute medial meniscus tear of right knee 08/19/2 015 09/04/2015 documented as of this encounter (statuses as of 07/08/2022) [facility] History of Past illness Narrative* Problem Noted Date Resolved Date Chronic pain of left knee 01/13/20212020 Mild persistent asthma 10/29/2020 1 Wheezing 03/13/2020 07/22/2021 Exotropia of right eye 07/07/2019 9 Mild intermittent asthma without complication 07/22/2021 Aftercare following surgery 01/19/20170 05/2020 Acute medial meniscus tear of right knee 015 09/04/2015 documented as of this encounter (statuses as of 07/08/2022) [facility] History of Past illness Narrative* Problem Noted Date Resolved Date Chronic pain of left knee 01/13/20212020 Mild persistent asthma 10/29/2020 1 Wheezing 03/13/2020 07/22/2021 Exotropia of right eye 07/07/2019 9 Mild intermittent asthma without complication 07/22/2021 Aftercare following surgery 01/19/20170 05/2020 Acute medial meniscus tear of right knee 015 09/04/2015 documented as of this encounter (statuses as of 07/21/2022) [facility] History of Past illness Narrative* Problem Noted Date Resolved Date Chronic pain of left knee 01/13/20212020 Mild persistent asthma 10/29/2020 1 Wheezing 03/13/2020 07/22/2021 Exotropia of right eye 07/07/2019 9 Mild intermittent asthma without complication 07/22/2021 Aftercare following surgery 01/19/20170 05/2020 Acute medial meniscus tear of right knee 015 09/04/2015 documented as of this encounter (statuses as of 08/10/2022) [facility] History of Past illness Narrative* Problem Noted Date Resolved Date Chronic pain of left knee 01/13/20212020 Mild persistent asthma 10/29/2020 1 Wheezing 03/13/2020 07/22/2021 Exotropia of right eye 07/07/2019 9 Mild intermittent asthma without complication 07/22/2021 Aftercare following surgery 01/19/2017 080 05/2020 Acute medial meniscus tear of right knee 015 09/04/2015 documented as of this encounter (statuses as of 08/11/2022) [facility] History of Past illness Narrative* Problem Noted Date Resolved Date Chronic pain of left knee 01/13/20212020 Mild persistent asthma 10/29/2020 1 Wheezing 03/13/2020 07/22/2021 Exotropia of right eye 07/07/2019 9 Mild intermittent asthma without complication 07/22/2021 Aftercare following surgery 01/19/2017 080 05/2020 Acute medial meniscus tear of right knee 015 09/04/2015 documented as of this encounter (statuses as of 08/13/2022) [facility] History of Past illness Narrative* Problem Noted Date Resolved Date Chronic pain of left knee 01/13/20212020 Mild persistent asthma 10/29/2020 1 Wheezing 03/13/2020 07/22/2021 Exotropia of right eye 07/07/2019 9 Mild intermittent asthma without complication 07/22/2021 Aftercare following surgery 01/19/2017 080 05/2020 Acute medial meniscus tear of right knee 015 09/04/2015 documented as of this encounter (statuses as of 08/14/2022) [facility] History of Past illness Narrative* Problem Noted Date Resolved Date Chronic pain of left knee 01/13/20212020 Mild persistent asthma 10/29/2020 1 Wheezing 03/13/2020 07/22/2021 Exotropia of right eye 07/07/2019 9 Mild intermittent asthma without complication 07/22/2021 Aftercare following surgery 01/19/2017 0 05/2020 Acute medial meniscus tear of right knee 015 09/04/2015 documented as of this encounter (statuses as of 08/18/2022) [facility] History of Past illness Narrative* Problem Noted Date Resolved Date Chronic pain of left knee 01/13/20212020 Mild persistent asthma 10/29/2020 1 Wheezing 03/13/2020 07/22/2021 Exotropia of right eye 07/07/2019 9 Mild intermittent asthma without complication 07/22/2021 Aftercare following surgery 01/19/20170 05/2020 Acute medial meniscus tear of right knee 015 09/04/2015 documented as of this encounter (statuses as of 08/18/2022) [facility] History of Past illness Narrative* Problem Noted Date Resolved Date Chronic pain of left knee 01/13/20212020 Mild persistent asthma 10/29/2020 1 Wheezing 03/13/2020 07/22/2021 Exotropia of right eye 07/07/2019 9 Mild intermittent asthma without complication 07/22/2021 Aftercare following surgery 01/19/201705/2020 Acute medial meniscus tear of right knee 015 09/04/2015 documented as of this encounter (statuses as of 08/26/2022) [facility] History of Past illness Narrative* Problem Noted Date Resolved Date Chronic pain of left knee 01/13/20212020 Mild persistent asthma 10/29/2020 1 Wheezing 03/13/2020 07/22/2021 Exotropia of right eye 07/07/2019 9 Mild intermittent asthma without complication 07/22/2021 Aftercare following surgery 01/19/2017 080 05/2020 Acute medial meniscus tear of right knee 015 09/04/2015 documented as of this encounter (statuses as of 08/26/2022) [facility] History of Past illness Narrative* Problem Noted Date Resolved Date Chronic pain of left knee 01/13/20212020 Mild persistent asthma 10/29/2020 1 Wheezing 03/13/2020 07/22/2021 Exotropia of right eye 07/07/2019 9 Mild intermittent asthma without complication 07/22/2021 Aftercare following surgery 01/19/2017 08/0 05/2020 Acute medial meniscus tear of right knee 015 09/04/2015 documented as of this encounter (statuses as of 08/28/2022) [facility] History of Past illness Narrative* Problem Noted Date Resolved Date Chronic pain of left knee 01/13/20212020 Mild persistent asthma 10/29/2020 1 Wheezing 03/13/2020 07/22/2021 Exotropia of right eye 07/07/2019 9 Mild intermittent asthma without complication 07/22/2021 Aftercare following surgery 01/19/2017 080 05/2020 Acute medial meniscus tear of right knee 015 09/04/2015 documented as of this encounter (statuses as of 09/01/2022) [facility] History of Past illness Narrative* Problem Noted Date Resolved Date Chronic pain of left knee 01/13/20212020 Mild persistent asthma 10/29/2020 1 Wheezing 03/13/2020 07/22/2021 Exotropia of right eye 07/07/2019 9 Mild intermittent asthma without complication 07/22/2021 Aftercare following surgery 01/19/2017 080 05/2020 Acute medial meniscus tear of right knee 015 09/04/2015 documented as of this encounter (statuses as of 09/07/2022) [facility] History of Past illness Narrative* Problem Noted Date Resolved Date Chronic pain of left knee 01/13/20212020 Mild persistent asthma 10/29/2020 1 Wheezing 03/13/2020 07/22/2021 Exotropia of right eye 07/07/2019 9 Mild intermittent asthma without complication 07/22/2021 Aftercare following surgery 01/19/20170 05/2020 Acute medial meniscus tear of right knee 2 015 09/04/2015 documented as of this encounter (statuses as of 09/07/2022) [facility] History of Past illness Narrative* Problem Noted Date Resolved Date Chronic pain of left knee 01/13/20212020 Mild persistent asthma 10/29/2020 1 Wheezing 03/13/2020 07/22/2021 Exotropia of right eye 07/07/2019 9 Mild intermittent asthma without complication 07/22/2021 Aftercare following surgery 01/19/20170 05/2020 Acute medial meniscus tear of right knee 2 015 09/04/2015 documented as of this encounter (statuses as of 09/07/2022) [facility] History of Past illness Narrative* Problem Noted Date Resolved Date Chronic pain of left knee 01/13/20212020 Mild persistent asthma 10/29/2020 1 Wheezing 03/13/2020 07/22/2021 Exotropia of right eye 07/07/2019 9 Mild intermittent asthma without complication 07/22/2021 Aftercare following surgery 01/19/201705/2020 Acute medial meniscus tear of right knee 2 015 09/04/2015 documented as of this encounter (statuses as of 10/05/2022) [facility] History of Past illness Narrative* Problem Noted Date Resolved Date Chronic pain of left knee 01/13/20212020 Mild persistent asthma 10/29/2020 1 Wheezing 03/13/2020 07/22/2021 Exotropia of right eye 07/07/2019 9 Mild intermittent asthma without complication 07/22/2021 Aftercare following surgery 01/19/20170 05/2020 Acute medial meniscus tear of right knee 2 015 09/04/2015 documented as of this encounter (statuses as of 11/16/2022) [facility] History of Past illness Narrative* Problem Noted Date Resolved Date Chronic pain of left knee 01/13/20212020 Mild persistent asthma 10/29/2020 1 Wheezing 03/13/2020 07/22/2021 Exotropia of right eye 07/07/2019 9 Mild intermittent asthma without complication 07/22/2021 Aftercare following surgery 01/19/2017 080 05/2020 Acute medial meniscus tear of right knee 015 09/04/2015 documented as of this encounter (statuses as of 11/20/2022) [facility] History of Past illness Narrative* Problem Noted Date Resolved Date Chronic pain of left knee 01/13/20212020 Mild persistent asthma 10/29/2020 1 Wheezing 03/13/2020 07/22/2021 Exotropia of right eye 07/07/2019 9 Mild intermittent asthma without complication 07/22/2021 Aftercare following surgery 01/19/2017 080 05/2020 Acute medial meniscus tear of right knee 015 09/04/2015 documented as of this encounter (statuses as of 12/15/2022) [facility]-15-2021 History of Past illness Narrative* Problem Noted Date Resolved Date Chronic pain of left knee 01/13/20212020 Mild persistent asthma 10/29/2020 1 Wheezing 03/13/2020 07/22/2021 Exotropia of right eye 07/07/2019 9 Mild intermittent asthma without complication 07/22/2021 Aftercare following surgery 01/19/2017 080 05/2020 Acute medial meniscus tear of right knee 015 09/04/2015 documented as of this encounter (statuses as of 12/28/2022) [facility]21 History of Past illness Narrative* Problem Noted Date Resolved Date Chronic pain of left knee 01/13/20212020 Mild persistent asthma 10/29/2020 1 Wheezing 03/13/2020 07/22/2021 Exotropia of right eye 07/07/2019 9 Mild intermittent asthma without complication 07/22/2021 Aftercare following surgery 01/19/20170 05/2020 Acute medial meniscus tear of right knee 2 015 09/04/2015 documented as of this encounter (statuses as of 01/01/2023) [facility]21 History of Past illness Narrative* Problem Noted Date Resolved Date Chronic pain of left knee 01/13/20212020 Mild persistent asthma 10/29/2020 1 Wheezing 03/13/2020 07/22/2021 Exotropia of right eye 07/07/2019 9 Mild intermittent asthma without complication 07/22/2021 Aftercare following surgery 01/19/201705/2020 Acute medial meniscus tear of right knee 015 09/04/2015 documented as of this encounter (statuses as of 02/02/2023) [facility] History of Past illness Narrative* Problem Noted Date Resolved Date Chronic pain of left knee 01/13/20212020 Mild persistent asthma 10/29/2020 1 Wheezing 03/13/2020 07/22/2021 Exotropia of right eye 07/07/2019 9 Mild intermittent asthma without complication 07/22/2021 Aftercare following surgery 01/19/201705/2020 Acute medial meniscus tear of right knee 2 015 09/04/2015 documented as of this encounter (statuses as of 02/03/2023) [facility] History of Past illness Narrative* Problem Noted Date Resolved Date Chronic pain of left knee 01/13/20212020 Mild persistent asthma 10/29/2020 1 Wheezing 03/13/2020 07/22/2021 Exotropia of right eye 07/07/2019 9 Mild intermittent asthma without complication 07/22/2021 Aftercare following surgery 01/19/20170 05/2020 Acute medial meniscus tear of right knee 015 09/04/2015 documented as of this encounter (statuses as of 02/04/2023) [facility] History of Past illness Narrative* Problem Noted Date Resolved Date Chronic pain of left knee 01/13/20212020 Mild persistent asthma 10/29/2020 1 Wheezing 03/13/2020 07/22/2021 Exotropia of right eye 07/07/2019 9 Mild intermittent asthma without complication 07/22/2021 Aftercare following surgery 01/19/20170 05/2020 Acute medial meniscus tear of right knee 015 09/04/2015 documented as of this encounter (statuses as of 03/31/2023) [facility] History of Past illness Narrative* Problem Noted Date Resolved Date Chronic pain of left knee 01/13/20212020 Mild persistent asthma 10/29/2020 1 Wheezing 03/13/2020 07/22/2021 Exotropia of right eye 07/07/2019 9 Mild intermittent asthma without complication 07/22/2021 Aftercare following surgery 01/19/20170 05/2020 Acute medial meniscus tear of right knee 015 09/04/2015 documented as of this encounter (statuses as of 04/02/2023) [facility] History of Past illness Narrative* Problem Noted Date Resolved Date Chronic pain of left knee 01/13/20212020 Mild persistent asthma 10/29/2020 1 Wheezing 03/13/2020 07/22/2021 Exotropia of right eye 07/07/2019 9 Mild intermittent asthma without complication 07/22/2021 Aftercare following surgery 01/19/20170 05/2020 Acute medial meniscus tear of right knee 015 09/04/2015 documented as of this encounter (statuses as of 04/22/2023) [facility] History of Past illness Narrative* Problem Noted Date Diagnosed Date Resolved Date Chronic pain of left knee 01/13/2021 Mild persistent asthma 10/29/202007/22 Wheezing 03/13/2020 07/22/2021 Exotropia of right eye 07/07/201907/07 Mild intermittent asthma without complication 04/01/20 17 07/22/2021 Aftercare following surgery 01/19/2017 06/07/2020 Acute medial meniscus tear of right knee 08/19/2015 09/04/2015 documented as of this encounter (statuses as of 05/13/2023) [facility] History of Past illness Narrative* Problem Noted Date Diagnosed Date Resolved Date Chronic pain of left knee 01/13/2021 Mild persistent asthma 10/29/202007/22 Wheezing 03/13/2020 07/22/2021 Exotropia of right eye 07/07/201907/07 Mild intermittent asthma without complication 04/01/20 17 07/22/2021 Aftercare following surgery 01/19/2017 06/07/2020 Acute medial meniscus tear of right knee 08/19/2015 09/04/2015 documented as of this encounter (statuses as of 05/13/2023) [facility] History of Past illness Narrative* Problem Noted Date Diagnosed Date Resolved Date Chronic pain of left knee 01/13/2021 Mild persistent asthma 10/29/202007/22 Wheezing 03/13/2020 07/22/2021 Exotropia of right eye 07/07/201907/07 Mild intermittent asthma without complication 04/01/20 17 07/22/2021 Aftercare following surgery 01/19/2017 06/07/2020 Acute medial meniscus tear of right knee 08/19/2015 09/04/2015 documented as of this encounter (statuses as of 07/20/2023) [address]15-2021 History of Past illness Narrative* Problem Noted Date Diagnosed Date Resolved Date Chronic pain of left knee 01/13/2021 Mild persistent asthma 10/29/202007/22 Wheezing 03/13/2020 07/22/2021 Exotropia of right eye 07/07/201907/07 Mild intermittent asthma without complication 04/01/20 17 07/22/2021 Aftercare following surgery 01/19/2017 06/07/2020 Acute medial meniscus tear of right knee 08/19/2015 09/04/2015 documented as of this encounter (statuses as of 08/06/2023) [facility] History of Past illness Narrative* Problem Noted Date Diagnosed Date Resolved Date Chronic pain of left knee 01/13/2021 Mild persistent asthma 10/29/202007/22 Wheezing 03/13/2020 07/22/2021 Exotropia of right eye 07/07/201907/07 Mild intermittent asthma without complication 04/01/20 17 07/22/2021 Aftercare following surgery 01/19/2017 06/07/2020 Acute medial meniscus tear of right knee 08/19/2015 09/04/2015 documented as of this encounter (statuses as of 08/09/2023) [facility] History of Past illness Narrative* Problem Noted Date Diagnosed Date Resolved Date Chronic pain of left knee 01/13/2021 Mild persistent asthma 10/29/202007/22 Wheezing 03/13/2020 07/22/2021 Exotropia of right eye 07/07/201907/07 Mild intermittent asthma without complication 04/01/20 17 07/22/2021 Aftercare following surgery 01/19/2017 06/07/2020 Acute medial meniscus tear of right knee 08/19/2015 09/04/2015 documented as of this encounter (statuses as of 08/18/2023) [facility]21 History of Past illness Narrative* Problem Noted Date Diagnosed Date Resolved Date Chronic pain of left knee 01/13/2021 Mild persistent asthma 10/29/202007/22 Wheezing 03/13/2020 07/22/2021 Exotropia of right eye 07/07/201907/07 Mild intermittent asthma without complication 04/01/20 17 07/22/2021 Aftercare following surgery 01/19/2017 06/07/2020 Acute medial meniscus tear of right knee 08/19/2015 09/04/2015 documented as of this encounter (statuses as of 08/18/2023) [facility] History of Past illness Narrative* Problem Noted Date Diagnosed Date Resolved Date Chronic pain of left knee 01/13/2021 Mild persistent asthma 10/29/202007/22 Wheezing 03/13/2020 07/22/2021 Exotropia of right eye 07/07/201907/07 Mild intermittent asthma without complication 04/01/20 17 07/22/2021 Aftercare following surgery 01/19/2017 06/07/2020 Acute medial meniscus tear of right knee 08/19/2015 09/04/2015 documented as of this encounter (statuses as of 09/22/2023) [facility] History of Past illness Narrative* Problem Noted Date Diagnosed Date Resolved Date Chronic pain of left knee 01/13/2021 Mild persistent asthma 10/29/202007/22 Wheezing 03/13/2020 07/22/2021 Exotropia of right eye 07/07/201907/07 Mild intermittent asthma without complication 04/01/20 17 07/22/2021 Aftercare following surgery 01/19/2017 06/07/2020 Acute medial meniscus tear of right knee 08/19/2015 09/04/2015 documented as of this encounter (statuses as of 12/23/2023) [facility] History of Past illness Narrative* Problem Noted Date Diagnosed Date Resolved Date Chronic pain of left knee 01/13/2021 Mild persistent asthma 10/29/202007/22 Wheezing 03/13/2020 07/22/2021 Exotropia of right eye 07/07/201907/07 Mild intermittent asthma without complication 04/01/20 17 07/22/2021 Aftercare following surgery 01/19/2017 06/07/2020 Acute medial meniscus tear of right knee 08/19/2015 09/04/2015 documented as of this encounter (statuses as of 12/23/2023) [facility] History of Past illness Narrative* Problem Noted Date Diagnosed Date Resolved Date Chronic pain of left knee 01/13/2021 Mild persistent asthma 10/29/202007/22 Wheezing 03/13/2020 07/22/2021 Exotropia of right eye 07/07/201907/07 Mild intermittent asthma without complication 04/01/20 17 07/22/2021 Aftercare following surgery 01/19/2017 06/07/2020 Acute medial meniscus tear of right knee 08/19/2015 09/04/2015 documented as of this encounter (statuses as of 01/19/2024) [facility] [place] [facility]* Diagnosis 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) Morbid obesity [facility] Diagnosis Post-traumatic osteoarthritis of left knee- Primary Secondary localized osteoarthrosis, lower leg [facility] [place] [facility] Diagnosis Post-traumatic osteoarthritis of left knee- Primary Secondary localized osteoarthrosis, lower leg [facility] Diagnosis Post-traumatic osteoarthritis of left knee- Primary Secondary localized osteoarthrosis, lower leg [facility] [place] [facility] Diagnosis Acute non-recurrent maxillary sinusitis- [facility] Diagnosis Bacterial sinusitis- Primary Unspecified sinusitis (chronic) Seasonal allergic rhinitis, unspecified trigger Obesity, Class III, BMI >= 40 E66.01 Morbid obesity Wellness examination [facility] Diagnosis Intractable migraine without aura and without status migrainosus- Primary Migraine without aura, with intractable migraine, so stated, without mention of status migrainosus Right facial pain Headache [facility] Diagnosis Middle ear effusion, left- Primary [facility] Diagnosis Viral URI with cough- Primary Acute upper respiratory infections of unspecified site [facility] Diagnosis Bacterial sinusitis- Primary Unspecified sinusitis (chronic) [facility] Diagnosis Post-traumatic osteoarthritis of left knee- Primary Secondary localized osteoarthrosis, lower leg Class 3 severe obesity due to excess calories with serious comorbidity and body mass index (BMI) of 40.0 to 44.9 in adult ([facility]) [facility] [place] [facility]* Diagnosis Intractable migraine without status migrainosus, unspecified migraine type Anxiety and depression Dysthymic disorder documented in this encounter [facility] note* Diagnosis Anxiety and depression Dysthymic disorder Intractable migraine without status migrainosus, unspecified migraine type documented in this encounter [facility] note* Diagnosis Left sided abdominal pain- Primary Abdominal pain, unspecified site Nausea Nausea alone Colon cancer screening Special screening for malignant neoplasms, colon Bowel habit changes Other symptoms involving digestive system Diverticulosis Diverticulosis of colon (without mention of hemorrhage) documented in this encounter [facility] note* Diagnosis Syncope, unspecified syncope type- Primary Benign paroxysmal positional vertigo of left ear Injury of right knee, subsequent encounter Chronic pain of left knee Pain in joint, lower leg Diarrhea, unspecified type documented in this encounter [facility] note* Diagnosis Contusion of right knee, initial encounter- Primary Patellar dislocation, right, initial encounter [facility] [place] [facility]* Diagnosis Syncope, unspecified syncope type documented in this encounter [facility] note* Diagnosis Syncope, unspecified syncope type [facility] [place] [facility]* Diagnosis Medication management Encounter for long-term (current) use of other medications documented in this encounter [facility] note* Diagnosis Intractable migraine without status migrainosus, unspecified migraine type documented in this encounter [facility] note* Diagnosis Intractable migraine without status migrainosus, unspecified migraine type documented in this encounter [facility] note* Diagnosis Encounter for immunization- Primary Need for other specified prophylactic vaccination against single bacterial disease Intractable migraine without status migrainosus, unspecified migraine type Bacterial sinusitis Unspecified sinusitis (chronic) documented in this encounter [facility] note* Diagnosis Obesity, morbid, BMI 40.0-49.9 (HCC) Morbid obesity Medication management Encounter for long-term (current) use of other medications documented in this encounter [facility] note* Diagnosis Moderate asthma, unspecified whether complicated, unspecified whether persistent- Primary Eczema, unspecified type Acute left-sided low back pain without sciatica Acute recurrent maxillary sinusitis Acute maxillary sinusitis documented in this encounter [facility] note* Diagnosis Eczema, unspecified type- Primary Intractable migraine without status migrainosus, unspecified migraine type Anxiety and depression Dysthymic disorder documented in this encounter [facility] note* Diagnosis Anxiety and depression [facility]ysthymic disorder [facility] Chronic pain of left knee- Primary Pain in joint, lower leg [facility] [place] [facility]* Diagnosis Post-traumatic osteoarthritis of left knee- Primary Secondary localized osteoarthrosis, lower leg Chronic pain of left knee Pain in joint, lower leg [facility] [place] [facility]* Diagnosis Bacterial sinusitis- Primary Unspecified sinusitis (chronic) documented [facility] encounter [facility] [place] [facility]* Diagnosis Acute non-recurrent sinusitis, unspecified location- Primary Eczema of lower extremity [facility] [place] [facility]* Diagnosis Acute cough- Primary Sore throat Acute pharyngitis Mild intermittent asthma without complication Unspecified asthma Chest congestion Other symptoms involving respiratory system and chest [facility] [place] [facility]* Diagnosis Intractable migraine without status migrainosus, unspecified migraine type [facility] Diagnosis Acute otitis media, left- Primary Unspecified otitis media Acute otitis externa of left ear, unspecified type Left ear pain Otalgia, unspecified documented [facility] this encounter [facility] [place] [facility]* Diagnosis Rash- Primary Rash and other nonspecific skin eruption Nasal congestion Other diseases of nasal cavity and sinuses Left ear pain Otalgia, unspecified [facility] [place] [facility]* Diagnosis Viral URI with cough- Primary Acute upper respiratory infections of unspecified site [facility] [place] [facility]* Diagnosis COVID-19 virus infection- Primary [facility] [place] [facility]* Diagnosis Treatment not available- Primary Procedure not carried out for other reasons [facility] [place] [facility]* Diagnosis Acute non-recurrent maxillary sinusitis- Primary Dermatitis Contact dermatitis and other eczema, due to unspecified cause [facility] [place] [facility]* Diagnosis Intractable migraine without status migrainosus, unspecified migraine type [facility] [place] [facility]* Diagnosis Encounter to establish care- Primary Other reasons for seeking consultation Sinus congestion Other diseases of nasal cavity and sinuses Rash Rash and other nonspecific skin eruption Intractable migraine without status migrainosus, unspecified migraine type Obesity, Class II, BMI 35-39.9 Obesity, unspecified Vitamin D deficiency Unspecified vitamin D deficiency Pre-diabetes Other abnormal glucose Dyslipidemia Other and unspecified hyperlipidemia Prostate cancer screening Special screening for malignant neoplasm of prostate Colon cancer screening Special screening for malignant neoplasms, colon B12 deficiency Other B-complex deficiencies documented [facility] this encounter [facility] [place] [facility]* Diagnosis Dermatitis- Primary Contact dermatitis and other eczema, due to unspecified cause Rash Rash and other nonspecific skin eruption documented in this encounter [facility] [place] [facility]* Diagnosis Chronic nonintractable headache, unspecified headache type- Primary Closed fracture of right foot, sequela Acute left-sided low back pain without sciatica- Primary documented [facility] this encounter [facility] [place] [facility]* Diagnosis Chronic nonintractable headache, unspecified headache type- Primary Closed fracture of right foot, sequela Acute left-sided low back pain without sciatica documented in this encounter [facility] [place] [facility]* Diagnosis Chronic nonintractable headache, unspecified headache type- Primary Closed fracture of right foot, sequela Acute left-sided low back pain without sciatica- Primary Encounter for immunization Need for other specified prophylactic vaccination against single bacterial disease Anxiety and depression Dysthymic disorder Herpes zoster with complication Herpes zoster with unspecified complication documented [facility] this encounter [facility] [place] [facility]* Diagnosis Chronic nonintractable headache, unspecified headache type- Primary Closed fracture of right foot, sequela Current severe episode of major depressive disorder without psychotic features without prior episode (HCC)- Primary documented in this encounter [facility] note* Diagnosis Chronic nonintractable headache, unspecified headache type- Primary Closed fracture of right foot, sequela Anxiety and depression Dysthymic disorder documented in this encounter [facility] note* Diagnosis Chronic nonintractable headache, unspecified headache type- Primary Closed fracture of right foot, sequela Anxiety and depression- Primary Dysthymic disorder Muscle spasm of back Other symptoms referable to back Restless leg syndrome Restless legs syndrome (RLS) COVID-19 vaccine administered documented [facility] this encounter [facility] [place] [facility]* Diagnosis Chronic nonintractable headache, unspecified headache type- Primary Closed fracture of right foot, sequela Visit for suture removal- Primary Encounter for removal of sutures Other fatigue documented [facility] this encounter [facility] [place] [facility]* Diagnosis Chronic nonintractable headache, unspecified headache type- Primary Closed fracture of right foot, sequela Sinus congestion Other diseases of nasal cavity and sinuses documented [facility] this encounter [facility] [place] [facility]* Diagnosis Chronic nonintractable headache, unspecified headache type- Primary Closed fracture of right foot, sequela Financial difficulties- Primary Inadequate material resources Needs assistance with community resources Housing problems Unspecified housing or economic circumstance documented in this encounter [facility] note* Diagnosis Chronic nonintractable headache, unspecified headache type- Primary Closed fracture of right foot, sequela Financial difficulties- Primary Inadequate material resources Needs assistance with community resources Housing instability due to housing cost burden documented in this encounter [facility] note* Diagnosis Chronic nonintractable headache, unspecified headache type- Primary Closed fracture of right foot, sequela Wellness examination- Primary documented in this encounter [facility] note* Diagnosis Chronic nonintractable headache, unspecified headache type- Primary Closed fracture of right foot, sequela Upper respiratory tract infection, unspecified type- Primary documented in this encounter [facility] note* Diagnosis Chronic nonintractable headache, unspecified headache type- Primary Closed fracture of right foot, sequela Intractable headache, unspecified chronicity pattern, unspecified headache type- Primary Eczema, unspecified type Erectile dysfunction, unspecified erectile dysfunction type Vitamin B 12 deficiency Other B-complex deficiencies Vitamin D deficiency Unspecified vitamin D deficiency Anxiety and depression Dysthymic disorder documented in this encounter [facility] note* Diagnosis Chronic nonintractable headache, unspecified headache type- Primary Closed fracture of right foot, sequela Acute non-recurrent sinusitis, unspecified location- Primary Multiple joint pain Pain in joint, multiple sites documented in this encounter [facility] note* Diagnosis Chronic nonintractable headache, unspecified headache type- Primary Closed fracture of right foot, sequela Wrist pain, acute, right- Primary documented in this encounter [facility] note* Diagnosis Chronic nonintractable headache, unspecified headache type- Primary Closed fracture of right foot, sequela Vitamin B 12 deficiency- Primary Other B-complex deficiencies documented in this encounter [facility] note* Diagnosis Chronic nonintractable headache, unspecified headache type- Primary Closed fracture of right foot, sequela Wrist pain, acute, right documented in this encounter [facility] note* Diagnosis Chronic nonintractable headache, unspecified headache type- Primary Closed fracture of right foot, sequela Upper respiratory tract infection, unspecified type documented in this encounter [facility] note* Diagnosis Chronic nonintractable headache, unspecified headache type- Primary Closed fracture of right foot, sequela Acute recurrent sinusitis, unspecified location- Primary documented in this encounter [facility] note* Diagnosis Chronic nonintractable headache, unspecified headache type- Primary Closed fracture of right foot, sequela Earache on left- Primary Otalgia, unspecified Eczema, unspecified type documented in this encounter [facility] note* Diagnosis Chronic nonintractable headache, unspecified headache type- Primary Closed fracture of right foot, sequela Anxiety and depression Dysthymic disorder documented in this encounter [facility] note* Diagnosis Chronic nonintractable headache, unspecified headache type- Primary Closed fracture of right foot, sequela Pain in right hand- Primary Wrist pain, acute, right documented in this encounter [facility] note* Diagnosis Chronic nonintractable headache, unspecified headache type- Primary Closed fracture of right foot, sequela Right wrist tendinitis- Primary Wrist pain, acute, right documented in this encounter [facility] note* Diagnosis Chronic nonintractable headache, unspecified headache type- Primary Closed fracture of right foot, sequela Upper respiratory tract infection, unspecified type documented in this encounter [facility] note* Diagnosis Chronic nonintractable headache, unspecified headache type- Primary Closed fracture of right foot, sequela Anxiety and depression Dysthymic disorder documented in this encounter [facility] note* Diagnosis Chronic nonintractable headache, unspecified headache type- Primary Closed fracture of right foot, sequela Upper respiratory tract infection, unspecified type documented in this encounter [facility] note* Diagnosis Chronic nonintractable headache, unspecified headache type- Primary Closed fracture of right foot, sequela Sinus congestion Other diseases of nasal cavity and sinuses documented in this encounter [facility] note* Diagnosis Chronic nonintractable headache, unspecified headache type- Primary Closed fracture of right foot, sequela Acute non-recurrent pansinusitis- Primary Mild intermittent asthma without complication (HCC) Unspecified asthma documented in this encounter [facility] note* Diagnosis Chronic nonintractable headache, unspecified headache type- Primary Closed fracture of right foot, sequela Recurrent sinus infections- Primary Unspecified sinusitis (chronic) Muscle spasm of back Other symptoms referable to back Restless leg syndrome Restless legs syndrome (RLS) Intractable migraine without status migrainosus, unspecified migraine type Hematuria, unspecified type Flank pain Abdominal pain, unspecified site Pre-diabetes Other abnormal glucose Hematuria, unspecified type Flank pain Abdominal pain, unspecified site documented in this encounter [facility] note* Diagnosis Chronic nonintractable headache, unspecified headache type- Primary Closed fracture of right foot, sequela Muscle spasm of back Other symptoms referable to back Restless leg syndrome Restless legs syndrome (RLS) documented in this encounter [facility] note* Diagnosis Chronic nonintractable headache, unspecified headache type- Primary Closed fracture of right foot, sequela Hematuria, unspecified type Flank pain Abdominal pain, unspecified site documented in this encounter [facility] note* Diagnosis Chronic nonintractable headache, unspecified headache type- Primary Closed fracture of right foot, sequela Intractable migraine without status migrainosus, unspecified migraine type documented in this encounter [facility] note* Diagnosis Chronic nonintractable headache, unspecified headache type- Primary Closed fracture of right foot, sequela Hematuria, unspecified type Flank pain Abdominal pain, unspecified site documented in this encounter [facility] note* Diagnosis Chronic nonintractable headache, unspecified headache type- Primary Closed fracture of right foot, sequela Restless leg syndrome Restless legs syndrome (RLS) documented in this encounter [facility] note* Diagnosis Chronic nonintractable headache, unspecified headache type- Primary Closed fracture of right foot, sequela Pre-diabetes Other abnormal glucose documented in this encounter [facility] note* Diagnosis Chronic nonintractable headache, unspecified headache type- Primary Closed fracture of right foot, sequela Eyelid symptom- Primary Unspecified disorder of eyelid documented in this encounter [facility] note* Diagnosis Chronic nonintractable headache, unspecified headache type- Primary Closed fracture of right foot, sequela Pre-diabetes Other abnormal glucose documented in this encounter [facility] note* Diagnosis Chronic nonintractable headache, unspecified headache type- Primary Closed fracture of right foot, sequela Hospital discharge follow-up- Primary Other follow-up examination Fungal skin infection Dermatophytosis of the body Herpes zoster without complication Herpes zoster without mention of complication Pruritus Unspecified pruritic disorder documented in this encounter [facility] note* Diagnosis Chronic nonintractable headache, unspecified headache type- Primary Closed fracture of right foot, sequela Pre-op exam- Primary Preoperative examination, unspecified Primary osteoarthritis of left knee Primary localized osteoarthrosis, lower leg Pre-diabetes Other abnormal glucose documented in this encounter [facility] for referral (narrative)* Diagnostic Procedure Only (Routine) - Authorized Specialty Diagnoses / Procedures Referred By Brigid pearce Referred To Contact US IMAGING Diagnoses Syncope, unspecified syncope type Procedures US CAROTID BILAT Avelina Ferraro MD [address] [facility] [address] [place] [address] Us Imaging Referral ID Status Reason Start Date Expiration Date Visits Requested Visits Authorized [id number] Authorized Auto-Generat ed Referral 2 09/13/2023 1 1 * Transition of Care (Routine) - Ref Not Required Specialty Diagnoses / Procedures Referred By Brigid pearce Referred To Contact Diagnoses Syncope, unspecified syncope type Benign paroxysmal positional vertigo of left ear Procedures CONSULT TO PHYSICAL THERAPY (AG) Avelina Ferraro MD [address] [address] Referral ID Status Reason Start Date Expiration Date Visits Requested Visits Authorized [id number] Ref Not Required PCP Requested Referral 2 11/12/2022 1 1 [facility] for referral (narrative)* Diagnostic Procedure Only (Routine) - Closed Specialty Diagnoses / Procedures Referred By Brigid pearce Referred To Contact US IMAGING Diagnoses Syncope, unspecified syncope type Procedures US CAROTID LEILAAT Avelina Ferraro MD [address] [facility] [address] [place] [address] Us Imaging Referral ID Status Reason Start Date Expiration Date V isits Requested Visits Authorized [id number] Closed Auto-Generate d Referral 08/14/2022 09/13/2023 1 1 [facility] for referral (narrative)* Diagnostic Procedure Only (Routine) - Pending Review Specialty Diagnoses / Procedures Referred By Contac t Referred To Contact XR IMAGING Diagnoses Post-traumatic osteoarthritis of left knee Procedures XR KNEE 3V FLEX/LAT/MERCH LEFT (AK) RADIOLOGIC EXAMINATION KNEE 3 VIEWS Kristopher Toussaint PA-C [address] [facility] [address] [place] [address] Xr Imaging Referral ID Status Reason Start Date Expiration Date Visits Requested Visits Authorized [id number] Pending Review Auto-Generat ed Referral 05/13/2023 06/11/2024 1 1 T [facility] for referral (narrative)* Diagnostic Procedure Only (Routine) - New Request Specialty Diagnoses / Procedures Referred By Contac t Referred To Contact XR IMAGING Diagnoses Acute left-sided low back pain without sciatica Procedures XR LUMBAR MOTION 4V AP/LAT/ FLEX/EXT RADEX SPINE LUMBOSACRAL MINIMUM 4 VIEWS Dolly Rodas MD [address] [place] [address] [place] [address] Referral ID Status Reason Start Date Expiration Date Visits Requested Visits Authorized [id number] New Request Auto-Generat ed Referral 06/21/2024 07/21/2025 1 1 T [facility] for referral (narrative)* Diagnostic Procedure Only (Routine) - Pending Review Specialty Diagnoses / Procedures Referred By Contac t Referred To Contact XR IMAGING Diagnoses Acute left-sided low back pain without sciatica Procedures XR LUMBAR MOTION 4V AP/LAT/ FLEX/EXT RADEX SPINE LUMBOSACRAL MINIMUM 4 VIEWS Dolly Rodas MD [address] [place] [address] [place] [address] Referral ID Status Reason Start Date Expiration Date Visits Requested Visits Authorized [id number] Pending Review Auto-Generat ed Referral 06/21/2024 07/21/2025 1 1 [facility] for referral (narrative)* Diagnostic Procedure Only (Routine) - Closed Specialty Diagnoses / Procedures Referred By Contac t Referred To Contact XR IMAGING Diagnoses Wrist pain, acute, right Procedures XR WRIST GENERAL 3V PA/LAT/OBL RIGHT RADEX WRIST COMPLETE MINIMUM 3 VIEWS Remi Ruth APRN.CNP [address] [place] [address] [place] [address] Referral ID Status Reason Start Date Expiration Date V isits Requested Visits Authorized [id number] Closed Auto-Generate d Referral 11/21/2024 12/21/2025 1 1 [facility] for visit Narrative* Diagnostic Procedure Only (Routine) - Closed Specialty Diagnoses / Procedures Referred By Contac t Referred To Contact US IMAGING Diagnoses Syncope, unspecified syncope type Procedures US CAROTID BILAT Avelina Ferraro MD [address] [address] Us Imaging Referral ID Status Reason Start Date Expiration Date V isits Requested Visits Authorized [id number] Closed Auto-Generate d Referral 08/14/2022 09/13/2023 1 1 [facility] for visit Narrative* Diagnostic Procedure Only (Routine) - Pending Review Specialty Diagnoses / Procedures Referred By Contac t Referred To Contact XR IMAGING Diagnoses Acute left-sided low back pain without sciatica Procedures XR LUMBAR MOTION 4V AP/LAT/ FLEX/EXT RADEX SPINE LUMBOSACRAL MINIMUM 4 VIEWS Dolly Rodas MD [address] [place] [address] [place] [address] Referral ID Status Reason Start Date Expiration Date Visits Requested Visits Authorized [id number] Pending Review Auto-Generat ed Referral 06/21/2024 07/21/2025 1 1 [facility] for visit Narrative* Diagnostic Procedure Only (Routine) - Closed Specialty Diagnoses / Procedures Referred By Contac t Referred To Contact XR IMAGING Diagnoses Wrist pain, acute, right Procedures XR WRIST GENERAL 3V PA/LAT/OBL RIGHT RADEX WRIST COMPLETE MINIMUM 3 VIEWS Remi Rtuh, [employer] 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 [address] [place] [address] [place] [address] Referral ID Status Reason Start Date Expiration Date V isits Requested Visits Authorized [id number] Closed Auto-Generate d Referral 11/21/2024 12/21/[facility]25 [facility] (Urgent[facility] - Closed Specialty Diagnoses / Procedures Referred By Contac t Referred To Contact CT IMAGING Diagnoses Hematuria, unspecified type Flank pain Procedures CT FLANK WO IVCON CT ABD & PELVIS W/O CONTRAST Remi Ruth, [employer] 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 [address] [place] [address] Phone: tel: fax: [place] [phone] Referral ID Status Reason Start Date Expiration Date V isits Requested Visits Authorized [id number] Closed Auto-Generate d Referral 02/12/2025 03/14/2026 1 1 [facility] Summary Purpose Family History No Family History Records FoundNo Family History Records FoundNo Family History Records FoundNo Family History Records FoundNo Family History Records FoundNo Family History Records FoundNo Family History Records Found Advance Directives No Advanced Directives Records FoundDocuments on File Type Date Recorded 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 Advance Directive(s) 12/27/2021 6:23 PM Advance Directive(s) 12/26/2021 4:44 PM Advance Directive(s) 10/27/2021 2:48 PM Advance Directive(s) 09/13/2021 8:13 AM Advance Directive(s) 08/31/2021 7:45 PM Advance Directive(s) 07/17/2021 10:29 AM Advance Directive(s) 05/16/2021 10:00 PM Advance Directive(s) 03/20/2021 7:35 PM Advance Directive(s) 03/18/2021 4:11 PM Advance Directive(s) 03/05/2021 4:17 PM Advance Directive(s) 03/03/2021 11:46 AM Advance Directive(s) 01/06/2021 10:35 AM Advance Directive(s) 11/15/2020 12:00 AM Advance Directive(s) 11/08/2020 1:37 PM Advance Directive(s) 08/04/2020 12:36 PM Advance Directive(s) 07/13/2020 11:48 AM Advance Directive(s) 05/05/2020 7:07 PM Advance Directive(s) 04/05/2020 7:46 AM Advance Directive(s) 02/10/2020 4:28 PM Advance Directive(s) 01/16/2020 1:25 PM Advance Directive(s) 11/10/2019 2:51 PM Advance Directive(s) 10/30/2019 10:17 PM Advance Directive(s) 10/09/2019 9:41 AM Advance Directive(s) 04/21/2019 12:34 AM Advance Directive(s) 04/01/2019 7:34 PM Advance Directive(s) 03/06/2019 10:51 AM Advance Directive(s) 12/24/2018 10:44 PM Advance Directive(s) 09/03/2018 11:33 AM Advance Directive(s) 07/21/2018 3:11 AM Advance Directive(s) 07/19/2018 7:19 PM Advance Directive(s) 05/11/2018 7:21 PM Advance Directive(s) 03/13/2018 7:44 PM Advance Directive(s) 12/25/2017 4:01 PM Advance Directive(s) 12/21/2017 6:55 PM Advance Directive(s) 11/15/2017 4:01 PM Advance Directive(s) 08/13/2017 12:37 AM Documents on File Type Date Recorded 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 Advance Directive(s) 03/24/2022 12:51 PM Advance Directive(s) 12/27/2021 6:23 PM Advance Directive(s) 12/26/2021 4:44 PM Advance Directive(s) 10/27/2021 2:48 PM Advance Directive(s) 09/13/2021 8:13 AM Advance Directive(s) 08/31/2021 7:45 PM Advance Directive(s) 07/17/2021 10:29 AM Advance Directive(s) 05/16/2021 10:00 PM Advance Directive(s) 03/20/2021 7:35 PM Advance Directive(s) 03/18/2021 4:11 PM Advance Directive(s) 03/05/2021 4:17 PM Advance Directive(s) 03/03/2021 11:46 AM Advance Directive(s) 01/06/2021 10:35 AM Advance Directive(s) 11/15/2020 12:00 AM Advance Directive(s) 11/08/2020 1:37 PM Advance Directive(s) 08/04/2020 12:36 PM Advance Directive(s) 07/13/2020 11:48 AM Advance Directive(s) 05/05/2020 7:07 PM Advance Directive(s) 04/05/2020 7:46 AM Advance Directive(s) 02/10/2020 4:28 PM Advance Directive(s) 01/16/2020 1:25 PM Advance Directive(s) 11/10/2019 2:51 PM Advance Directive(s) 10/30/2019 10:17 PM Advance Directive(s) 10/09/2019 9:41 AM Advance Directive(s) 04/21/2019 12:34 AM Advance Directive(s) 04/01/2019 7:34 PM Advance Directive(s) 03/06/2019 10:51 AM Advance Directive(s) 12/24/2018 10:44 PM Advance Directive(s) 09/03/2018 11:33 AM Advance Directive(s) 07/21/2018 3:11 AM Advance Directive(s) 07/19/2018 7:19 PM Advance Directive(s) 05/11/2018 7:21 PM Advance Directive(s) 03/13/2018 7:44 PM Advance Directive(s) 12/25/2017 4:01 PM Advance Directive(s) 12/21/2017 6:55 PM Advance Directive(s) 11/15/2017 4:01 PM Advance Directive(s) 08/13/2017 12:37 AM Medications Administered Section Inactive Administered Medications - up to 3 most recent administrations Medication Order MAR Action Action Date Dose Rate Site sodium hyaluronate 20 mg injection (EUFLEXXA) 20 mg, Injection - FOR ORTHO USE ONLY, ONE TIME INJECTION, 1 dose, Starting on Wed02/20/22 at 1543, Until Wed02/20/22 at 1543 Given 02/20/2022 3:43 PM EDT 20 mg Inactive Administered Medications - up to 3 most recent administrations Medication Order MAR Action Action Date Dose Rate Site sodium hyaluronate 20 mg injection (EUFLEXXA) 20 mg, Injection - FOR ORTHO USE ONLY, ONE TIME INJECTION, 1 dose, Starting on Wed02/27/22 at 1544, Until Wed02/27/22 at 1544 Given 02/27/2022 3:44 PM EDT 20 mg Inactive Administered Medications - up to 3 most recent administrations Medication Order MAR Action Action Date Dose Rate Site sodium hyaluronate 20 mg injection (EUFLEXXA) 20 mg, Injection - FOR ORTHO USE ONLY, ONE TIME INJECTION, 1 dose, Starting on 03/09/22 at 0926, Until Wed03/09/22 at 0926 Given 03/09/2022 9:26 AM EDT 20 mg Inactive Administered Medications - up to 3 most recent administrations Medication Order MAR Action Action Date Dose Rate Site lidocaine (PF) 10 mg/mL (1 %) 4 mL injection (XYLOCAINE) 4 mL, Injection - FOR ORTHO USE ONLY, ONE TIME INJECTION, 1 dose, Starting on Wed07/02/22 at 1643, Until Wed07/02/22 at 1643 Given 07/02/2022 4:43 PM EDT 4 mL Kne e, Left triamcinolone acetonide 40 mg injection (KeNALog 40) 40 mg, Injection - FOR ORTHO USE ONLY, ONE TIME INJECTION, 1 dose, Starting on Wed07/02/22 at 1643, Until Wed07/02/22 at 1643 Given 07/02/2022 4:43 PM EDT 40 mg Kne e, Left Inactive Administered Medications - up to 3 most recent administrations Medication Order MAR Action Action Date Dose Rate Site triamcinolone acetonide 40 mg injection (KeNALog 40) 40 mg, INTRAMUSCULAR, ONCE, 1 dose, On Wed02/02/23 at 1430 Given 02/02/2023 2:15 PM EDT 40 mg But tocks, Left Inactive Administered Medications - up to 3 most recent administrations Medication Order MAR Action Action Date Dose Rate Site lidocaine (PF) 10 mg/mL (1 %) 4 mL injection (XYLOCAINE) 4 mL, Injection - FOR ORTHO USE ONLY, ONE TIME INJECTION, 1 dose, Starting on Wed05/13/23 at 0919, Until Wed05/13/23 at 0919 Given 05/13/2023 9:19 AM EDT 4 mL Kn ee, Left triamcinolone acetonide 40 mg injection (KeNALog 40) 40 mg, Injection - FOR ORTHO USE ONLY, ONE TIME INJECTION, 1 dose, Starting on Juanita 05/13/23 at 0919, Until Juanita 05/13/23 at 0919 Given 05/13/2023 9:19 AM EDT 40 mg Kn ee, Left Inactive Administered Medications - up to 3 most recent administrations Medication Order MAR Action Action Date Dose Rate Site triamcinolone acetonide 40 mg injection (KeNALog 40) 40 mg, INTRAMUSCULAR, ONCE, 1 dose, On 07/12/23 at 1100 Given 07/12/2023 10:47 AM EDT 40 mg Buttocks, Right Reason for Referral Specialty Diagnoses / Procedures Referred By Contac t Referred To Contact Pain Management Diagnoses Post-traumatic osteoarthritis of left knee Procedures CONSULT TO PAIN MGT Tre Serrano MD [address] [address] Mayo Roberto MD [address] [place] [address] Referral ID Status Reason Start Date Expiration Date Visits Requested Visits Authorized [id number] Ref Not Required PCP Requested Referral 07/02/2022 09/30/2022 3 3 Specialty Diagnoses / Procedures Referred By Contac t Referred To Contact Gastroenterology Diagnoses Left sided abdominal pain Nausea Colon cancer screening Bowel habit changes Diverticulosis Procedures CONSULT TO GASTROENTEROLOGY OFFICE/OUTPATIENT [facility] 60-74 MINUTES Lina Duarte APRN.PIG MACHINE CRANE OPERATOR [address] [facility] [address] [place] [address] Referral ID Status Reason Start Date Expiration Date Visits Requested Visits Authorized [id number] Authorized PCP Requested Referral 2 08/10/2023 1 1 Specialty Diagnoses / Procedures Referred By Contac t Referred To Contact MR IMAGING Diagnoses Contusion of right knee, initial encounter Patellar dislocation, right, initial encounter Procedures MRI KNEE WO IVCON RT MRI ANY JT LOWER EXTREM W/O CONTRAST MATRL Tre Serrano MD [address] [place] [address] Mr Imaging Referral ID Status Reason Start Date Expiration Date Visits Requested Visits Authorized [id number] Pending Review Auto-Generat ed Referral 2 09/17/2023 1 1 Specialty Diagnoses / Procedures Referred By Contac t Referred To Contact XR IMAGING Diagnoses Contusion of right knee, initial encounter Procedures XR KNEE 3V FLEX/LAT/MERCH RIGHT (AK) Tre Serrano MD [address] [facility] [address] [place] [address] Xr Imaging Referral ID Status Reason Start Date Expiration Date Visits Requested Visits Authorized [id number] Pending Review Auto-Generat ed Referral 2 09/17/2023 1 1 Specialty Diagnoses / Procedures Referred By Contac t Referred To Contact Dermatology Diagnoses Eczema, unspecified type Procedures CONSULT TO DERMATOLOGY OFFICE/OUTPATIENT [facility] 60-74 MINUTES Elmira Polo PA-C [address] [place] [address] Referral ID Status Reason Start Date Expiration Date Visits Requested Visits Authorized [id number] Authorized PCP Requested Referral 02/02/2023 02/02/2024 1 1 Specialty Diagnoses / Procedures Referred By Contac t Referred To Contact Elmira Polo PA-C [address] [place] [address] Referral ID Status Reason Start Date Expiration Date Visits Re quested Visits Authorized [id number] Closed 1 1 Specialty Diagnoses / Procedures Referred By Contac t Referred To Contact Orthopedics Diagnoses Chronic pain of left knee Procedures CONSULT PANEL TO ORTHOPAEDICS OFFICE/OUTPATIENT [facility] 60-74 MINUTES Devon James Jr., MD [address] [address] Referral ID Status Reason Start Date Expiration Date Visits Requested Visits Authorized [id number] Authorized PCP Requested Referral 03/31/2023 03/30/2024 1 1 Specialty Diagnoses / Procedures Referred By Contac t Referred To Contact XR IMAGING Diagnoses Chronic pain of left knee Procedures XR KNEE GENERAL 4V AP BOTH/PA BOTH/LAT/MERC LEFT RADIOLOGIC EXAM KNEE COMPLETE 4/MORE VIEWS Devon James Jr., MD [address] [place] [address] Xr Imaging Referral ID Status Reason Start Date Expiration Date Visits Requested Visits Authorized [id number] Pending Review Auto-Generat ed Referral 03/31/2023 04/29/2024 1 1 Specialty Diagnoses / Procedures Referred By Contac t Referred To Contact Diagnoses Acute left-sided low back pain without sciatica Procedures CONSULT TO CHIROPRACTOR OFFICE/OUTPATIENT [facility] 30 MINUTES CHIROPRAC MANIP,SPINAL,5 REGIONS Remi Ruth APRN.PIG MACHINE CRANE OPERATOR [address] [place] [id number] Referral ID Status Reason Start Date Expiration Date Visits Requested Visits Authorized [id number] Pending Review PCP Requested Referral 07/13/2024 07/13/2025 1 1 Specialty Diagnoses / Procedures Referred By Contac t Referred To Contact [facility] Diagnoses Acute left-sided low back pain without sciatica Procedures CONSULT TO PHYSICAL THERAPY PHYSICAL THERAPY EVALUATION HIGH COMPLEX 45 MINS Remi Ruth APRN.[address] [address] [facility] [place] [id number] [place] [address] Referral ID Status Reason Start Date Expiration Date Visits Requested Visits Authorized [id number] Pending Review Auto-Generat ed Referral 07/13/2024 07/13/2025 1 1 Specialty Diagnoses / Procedures Referred By Contac t Referred To Contact Diagnoses Wellness examination Procedures PRIMARY CARE SOCIAL WORK CONSULT Remi Ruth APRN.[address] [address] Referral ID Status Reason Start Date Expiration Date Visits Requested Visits Authorized [id number] Ref Not Required PCP Requested Referral 12/19/2024 1 1 Specialty Diagnoses / Procedures Referred By Contac t Referred To Contact Orthopedics Diagnoses Wrist pain, acute, right Procedures CONSULT TO ORTHOPAEDICS OFFICE/OUTPATIENT [facility] 60 MINUTES Remi Ruth APRN.PIG MACHINE CRANE OPERATOR [address] [place] [address] Referral ID Status Reason Start Date Expiration Date Visits Requested Visits Authorized [id number] Authorized PCP Requested Referral 11/21/2024 11/21/2025 1 1 Specialty Diagnoses / Procedures Referred By Contac t Referred To Contact [facility] Diagnoses Wrist pain, acute, right Procedures EMG(NEURO/NI) NERVE CONDUCTION STUDIES 9-10 STUDIES Remi Ruth APRN.[facility] [address] [place] [address] [facility] [place] [address] [place] [address] Referral ID Status Reason Start Date Expiration Date Visits Requested Visits Authorized [id number] New Request Auto-Generat ed Referral 11/21/2024 11/21/2025 1 1 Specialty Diagnoses / Procedures Referred By Contac t Referred To Contact XR IMAGING Diagnoses Wrist pain, acute, right Procedures XR WRIST GENERAL 3V PA/LAT/OBL RIGHT RADEX WRIST COMPLETE MINIMUM 3 VIEWS Remi Ruth, CEMENT AND CONCRETE PLANT WORKER.[facility] [facility] [address] [place] [address] [place] [id number] Referral ID Status Reason Start Date Expiration Date Visits Requested Visits Authorized [id number] New Request Auto-Generat ed Referral 11/21/2024 12/21/2025 1 1 Health Concerns Infection Onset Date Last Indicated Resolved Time COVID-19 Rule-Out 07/29/2022 07/29/2022 07/29/2022 4:21 PM EDT Infection Onset Date Last Indicated Resolved Time COVID-19 Rule-Out 01/19/2024 01/19/2024 01/19/2024 2:56 AM EDT Additional Source Comments (unrecognized sect ion and content) No Status Records FoundNo Status Records FoundNo Status Records FoundNo Status Records FoundNo Status Records FoundNo Status Records FoundNo Status Records Found INFORMATION SOURCE (unrecogn ized section and content) DATE CREATED AUTHOR 07/07/2019 [facility] DATE CREATED AUTHOR AUTHOR'S ORGANIZ ATION 08/17/2021 [facility] DATE CREATED AUTHOR AUTHOR'S ORGANIZ ATION 08/26/2021 [facility] DATE CREATED AUTHOR AUTHOR'S ORGANIZ ATION 04/06/2025 [facility] DATE CREATED AUTHOR AUTHOR'S ORGANIZ ATION 04/11/2025 [facility] DATE CREATED AUTHOR AUTHOR'S ORGANIZ ATION 05/19/2025 [facility] DATE CREATED AUTHOR AUTHOR'S ORGANIZ ATION 06/14/2025 [facility] Source Comments (unrecognize d section and content) In the event this informatio n is protected by the Federal Confidentiality of Alcohol and Drug Abuse Patient Records regulations: The Federal rules restrict any use of the information to criminally investigate or prosecute any alcohol or drug abuse patient.[facility]In the event this information is protected by the Federal Confidentiality of Alcohol and Drug Abuse Patient Records regulations: The Federal rules restrict any use of the information to criminally investigate or prosecute any alcohol or drug abuse patient.[facility] HospitalIn the event this information is protected by the Federal Confidentiality of Alcohol and Drug Abuse Patient Records regulations: The Federal rules restrict any use of the information to criminally investigate or prosecute any alcohol or drug abuse patient.[facility] the event this information is protected by the Federal Confidentiality of Alcohol and Drug Abuse Patient Records regulations: The Federal rules restrict any use of the information to criminally investigate or prosecute any alcohol or drug abuse patient.[facility] HospitalIn the event this information is protected by the Federal Confidentiality of Alcohol and Drug Abuse Patient Records regulations: The Federal rules restrict any use of the information to criminally investigate or prosecute any alcohol or drug abuse patient.[facility] HospitalIn the event this information is protected by the Federal Confidentiality of Alcohol and Drug Abuse Patient Records regulations: The Federal rules restrict any use of the information to criminally investigate or prosecute any alcohol or drug abuse patient.[facility] HospitalIn the event this information is protected by the Federal Confidentiality of Alcohol and Drug Abuse Patient Records regulations: The Federal rules restrict any use of the information to criminally investigate or prosecute any alcohol or drug abuse patient.[facility] HospitalIn the event this information is protected by the Federal Confidentiality of Alcohol and Drug Abuse Patient Records regulations: The Federal rules restrict any use of the information to criminally investigate or prosecute any alcohol or drug abuse patient.[facility] HospitalIn the event this information is protected by the Federal Confidentiality of Alcohol and Drug Abuse Patient Records regulations: The Federal rules restrict any use of the information to criminally investigate or prosecute any alcohol or drug abuse patient.[facility] HospitalIn the event this information is protected by the Federal Confidentiality of Alcohol and Drug Abuse Patient Records regulations: The Federal rules restrict any use of the information to criminally investigate or prosecute any alcohol or drug abuse patient.[facility] HospitalIn the event this information is protected by the Federal Confidentiality of Alcohol and Drug Abuse Patient Records regulations: The Federal rules restrict any use of the information to criminally investigate or prosecute any alcohol or drug abuse patient.[facility] HospitalIn the event this information is protected by the Federal Confidentiality of Alcohol and Drug Abuse Patient Records regulations: The Federal rules restrict any use of the information to criminally investigate or prosecute any alcohol or drug abuse patient.[facility] HospitalIn the event this information is protected by the Federal Confidentiality of Alcohol and Drug Abuse Patient Records regulations: The Federal rules restrict any use of the information to criminally investigate or prosecute any alcohol or drug abuse patient.[facility] HospitalIn the event this information is protected by the Federal Confidentiality of Alcohol and Drug Abuse Patient Records regulations: The Federal rules restrict any use of the information to criminally investigate or prosecute any alcohol or drug abuse patient.[facility] HospitalIn the event this information is protected by the Federal Confidentiality of Alcohol and Drug Abuse Patient Records regulations: The Federal rules restrict any use of the information to criminally investigate or prosecute any alcohol or drug abuse patient.[facility] HospitalIn the event this information is protected by the Federal Confidentiality of Alcohol and Drug Abuse Patient Records regulations: The Federal rules restrict any use of the information to criminally investigate or prosecute any alcohol or drug abuse patient.[facility] HospitalIn the event this information is protected by the Federal Confidentiality of Alcohol and Drug Abuse Patient Records regulations: The Federal rules restrict any use of the information to criminally investigate or prosecute any alcohol or drug abuse patient.[facility] HospitalIn the event this information is protected by the Federal Confidentiality of Alcohol and Drug Abuse Patient Records regulations: The Federal rules restrict any use of the information to criminally investigate or prosecute any alcohol or drug abuse patient.[facility] HospitalIn the event this information is protected by the Federal Confidentiality of Alcohol and Drug Abuse Patient Records regulations: The Federal rules restrict any use of the information to criminally investigate or prosecute any alcohol or drug abuse patient.[facility] HospitalIn the event this information is protected by the Federal Confidentiality of Alcohol and Drug Abuse Patient Records regulations: The Federal rules restrict any use of the information to criminally investigate or prosecute any alcohol or drug abuse patient.[facility] HospitalIn the event this information is protected by the Federal Confidentiality of Alcohol and Drug Abuse Patient Records regulations: The Federal rules restrict any use of the information to criminally investigate or prosecute any alcohol or drug abuse patient.[facility] HospitalIn the event this information is protected by the Federal Confidentiality of Alcohol and Drug Abuse Patient Records regulations: The Federal rules restrict any use of the information to criminally investigate or prosecute any alcohol or drug abuse patient.[facility] HospitalIn the event this information is protected by the Federal Confidentiality of Alcohol and Drug Abuse Patient Records regulations: The Federal rules restrict any use of the information to criminally investigate or prosecute any alcohol or drug abuse patient.[facility] HospitalIn the event this information is protected by the Federal Confidentiality of Alcohol and Drug Abuse Patient Records regulations: The Federal rules restrict any use of the information to criminally investigate or prosecute any alcohol or drug abuse patient.[facility] HospitalIn the event this information is protected by the Federal Confidentiality of Alcohol and Drug Abuse Patient Records regulations: The Federal rules restrict any use of the information to criminally investigate or prosecute any alcohol or drug abuse patient.[facility] HospitalIn the event this information is protected by the Federal Confidentiality of Alcohol and Drug Abuse Patient Records regulations: The Federal rules restrict any use of the information to criminally investigate or prosecute any alcohol or drug abuse patient.[facility] HospitalIn the event this information is protected by the Federal Confidentiality of Alcohol and Drug Abuse Patient Records regulations: The Federal rules restrict any use of the information to criminally investigate or prosecute any alcohol or drug abuse patient.[facility] HospitalIn the event this information is protected by the Federal Confidentiality of Alcohol and Drug Abuse Patient Records regulations: The Federal rules restrict any use of the information to criminally investigate or prosecute any alcohol or drug abuse patient.[facility] HospitalIn the event this information is protected by the Federal Confidentiality of Alcohol and Drug Abuse Patient Records regulations: The Federal rules restrict any use of the information to criminally investigate or prosecute any alcohol or drug abuse patient.[facility] HospitalIn the event this information is protected by the Federal Confidentiality of Alcohol and Drug Abuse Patient Records regulations: The Federal rules restrict any use of the information to criminally investigate or prosecute any alcohol or drug abuse patient.[facility] HospitalIn the event this information is protected by the Federal Confidentiality of Alcohol and Drug Abuse Patient Records regulations: The Federal rules restrict any use of the information to criminally investigate or prosecute any alcohol or drug abuse patient.[facility] HospitalIn the event this information is protected by the Federal Confidentiality of Alcohol and Drug Abuse Patient Records regulations: The Federal rules restrict any use of the information to criminally investigate or prosecute any alcohol or drug abuse patient.[facility] HospitalIn the event this information is protected by the Federal Confidentiality of Alcohol and Drug Abuse Patient Records regulations: The Federal rules restrict any use of the information to criminally investigate or prosecute any alcohol or drug abuse patient.[facility] HospitalIn the event this information is protected by the Federal Confidentiality of Alcohol and Drug Abuse Patient Records regulations: The Federal rules restrict any use of the information to criminally investigate or prosecute any alcohol or drug abuse patient.[facility] HospitalIn the event this information is protected by the Federal Confidentiality of Alcohol and Drug Abuse Patient Records regulations: The Federal rules restrict any use of the information to criminally investigate or prosecute any alcohol or drug abuse patient.[facility] HospitalIn the event this information is protected by the Federal Confidentiality of Alcohol and Drug Abuse Patient Records regulations: The Federal rules restrict any use of the information to criminally investigate or prosecute any alcohol or drug abuse patient.[facility] HospitalIn the event this information is protected by the Federal Confidentiality of Alcohol and Drug Abuse Patient Records regulations: The Federal rules restrict any use of the information to criminally investigate or prosecute any alcohol or drug abuse patient.[facility] HospitalIn the event this information is protected by the Federal Confidentiality of Alcohol and Drug Abuse Patient Records regulations: The Federal rules restrict any use of the information to criminally investigate or prosecute any alcohol or drug abuse patient.[facility] HospitalIn the event this information is protected by the Federal Confidentiality of Alcohol and Drug Abuse Patient Records regulations: The Federal rules restrict any use of the information to criminally investigate or prosecute any alcohol or drug abuse patient.[facility] HospitalIn the event this information is protected by the Federal Confidentiality of Alcohol and Drug Abuse Patient Records regulations: The Federal rules restrict any use of the information to criminally investigate or prosecute any alcohol or drug abuse patient.[facility] HospitalIn the event this information is protected by the Federal Confidentiality of Alcohol and Drug Abuse Patient Records regulations: The Federal rules restrict any use of the information to criminally investigate or prosecute any alcohol or drug abuse patient.[facility] HospitalIn the event this information is protected by the Federal Confidentiality of Alcohol and Drug Abuse Patient Records regulations: The Federal rules restrict any use of the information to criminally investigate or prosecute any alcohol or drug abuse patient.[facility] HospitalIn the event this information is protected by the Federal Confidentiality of Alcohol and Drug Abuse Patient Records regulations: The Federal rules restrict any use of the information to criminally investigate or prosecute any alcohol or drug abuse patient.[facility] HospitalIn the event this information is protected by the Federal Confidentiality of Alcohol and Drug Abuse Patient Records regulations: The Federal rules restrict any use of the information to criminally investigate or prosecute any alcohol or drug abuse patient.[facility] HospitalIn the event this information is protected by the Federal Confidentiality of Alcohol and Drug Abuse Patient Records regulations: The Federal rules restrict any use of the information to criminally investigate or prosecute any alcohol or drug abuse patient.[facility] HospitalIn the event this information is protected by the Federal Confidentiality of Alcohol and Drug Abuse Patient Records regulations: The Federal rules restrict any use of the information to criminally investigate or prosecute any alcohol or drug abuse patient.[facility] HospitalIn the event this information is protected by the Federal Confidentiality of Alcohol and Drug Abuse Patient Records regulations: The Federal rules restrict any use of the information to criminally investigate or prosecute any alcohol or drug abuse patient.[facility] HospitalIn the event this information is protected by the Federal Confidentiality of Alcohol and Drug Abuse Patient Records regulations: The Federal rules restrict any use of the information to criminally investigate or prosecute any alcohol or drug abuse patient.[facility] HospitalIn the event this information is protected by the Federal Confidentiality of Alcohol and Drug Abuse Patient Records regulations: The Federal rules restrict any use of the information to criminally investigate or prosecute any alcohol or drug abuse patient.[facility] HospitalIn the event this information is protected by the Federal Confidentiality of Alcohol and Drug Abuse Patient Records regulations: The Federal rules restrict any use of the information to criminally investigate or prosecute any alcohol or drug abuse patient.[facility] HospitalIn the event this information is protected by the Federal Confidentiality of Alcohol and Drug Abuse Patient Records regulations: The Federal rules restrict any use of the information to criminally investigate or prosecute any alcohol or drug abuse patient.[facility] HospitalIn the event this information is protected by the Federal Confidentiality of Alcohol and Drug Abuse Patient Records regulations: The Federal rules restrict any use of the information to criminally investigate or prosecute any alcohol or drug abuse patient.[facility] HospitalIn the event this information is protected by the Federal Confidentiality of Alcohol and Drug Abuse Patient Records regulations: The Federal rules restrict any use of the information to criminally investigate or prosecute any alcohol or drug abuse patient.[facility]In the event this information is protected by the Federal Confidentiality of Alcohol and Drug Abuse Patient Records regulations: The Federal rules restrict any use of the information to criminally investigate or prosecute any alcohol or drug abuse patient.[facility] HospitalIn the event this information is protected by the Federal Confidentiality of Alcohol and Drug Abuse Patient Records regulations: The Federal rules restrict any use of the information to criminally investigate or prosecute any alcohol or drug abuse patient.[facility] HospitalIn the event this information is protected by the Federal Confidentiality of Alcohol and Drug Abuse Patient Records regulations: The Federal rules restrict any use of the information to criminally investigate or prosecute any alcohol or drug abuse patient.[facility] HospitalIn the event this information is protected by the Federal Confidentiality of Alcohol and Drug Abuse Patient Records regulations: The Federal rules restrict any use of the information to criminally investigate or prosecute any alcohol or drug abuse patient.[facility] HospitalIn the event this information is protected by the Federal Confidentiality of Alcohol and Drug Abuse Patient Records regulations: The Federal rules restrict any use of the information to criminally investigate or prosecute any alcohol or drug abuse patient.[facility] HospitalIn the event this information is protected by the Federal Confidentiality of Alcohol and Drug Abuse Patient Records regulations: The Federal rules restrict any use of the information to criminally investigate or prosecute any alcohol or drug abuse patient.[facility] HospitalIn the event this information is protected by the Federal Confidentiality of Alcohol and Drug Abuse Patient Records regulations: The Federal rules restrict any use of the information to criminally investigate or prosecute any alcohol or drug abuse patient.[facility] HospitalIn the event this information is protected by the Federal Confidentiality of Alcohol and Drug Abuse Patient Records regulations: The Federal rules restrict any use of the information to criminally investigate or prosecute any alcohol or drug abuse patient.[facility] HospitalIn the event this information is protected by the Federal Confidentiality of Alcohol and Drug Abuse Patient Records regulations: The Federal rules restrict any use of the information to criminally investigate or prosecute any alcohol or drug abuse patient.[facility] HospitalIn the event this information is protected by the Federal Confidentiality of Alcohol and Drug Abuse Patient Records regulations: The Federal rules restrict any use of the information to criminally investigate or prosecute any alcohol or drug abuse patient.[facility] HospitalIn the event this information is protected by the Federal Confidentiality of Alcohol and Drug Abuse Patient Records regulations: The Federal rules restrict any use of the information to criminally investigate or prosecute any alcohol or drug abuse patient.[facility] HospitalIn the event this information is protected by the Federal Confidentiality of Alcohol and Drug Abuse Patient Records regulations: The Federal rules restrict any use of the information to criminally investigate or prosecute any alcohol or drug abuse patient.[facility] HospitalIn the event this information is protected by the Federal Confidentiality of Alcohol and Drug Abuse Patient Records regulations: The Federal rules restrict any use of the information to criminally investigate or prosecute any alcohol or drug abuse patient.[facility] HospitalIn the event this information is protected by the Federal Confidentiality of Alcohol and Drug Abuse Patient Records regulations: The Federal rules restrict any use of the information to criminally investigate or prosecute any alcohol or drug abuse patient.[facility] HospitalIn the event this information is protected by the Federal Confidentiality of Alcohol and Drug Abuse Patient Records regulations: The Federal rules restrict any use of the information to criminally investigate or prosecute any alcohol or drug abuse patient.[facility] HospitalIn the event this information is protected by the Federal Confidentiality of Alcohol and Drug Abuse Patient Records regulations: The Federal rules restrict any use of the information to criminally investigate or prosecute any alcohol or drug abuse patient.[facility] HospitalIn the event this information is protected by the Federal Confidentiality of Alcohol and Drug Abuse Patient Records regulations: The Federal rules restrict any use of the information to criminally investigate or prosecute any alcohol or drug abuse patient.[facility] HospitalIn the event this information is protected by the Federal Confidentiality of Alcohol and Drug Abuse Patient Records regulations: The Federal rules restrict any use of the information to criminally investigate or prosecute any alcohol or drug abuse patient.[facility] HospitalIn the event this information is protected by the Federal Confidentiality of Alcohol and Drug Abuse Patient Records regulations: The Federal rules restrict any use of the information to criminally investigate or prosecute any alcohol or drug abuse patient.[facility] HospitalIn the event this information is protected by the Federal Confidentiality of Alcohol and Drug Abuse Patient Records regulations: The Federal rules restrict any use of the information to criminally investigate or prosecute any alcohol or drug abuse patient.[facility] HospitalIn the event this information is protected by the Federal Confidentiality of Alcohol and Drug Abuse Patient Records regulations: The Federal rules restrict any use of the information to criminally investigate or prosecute any alcohol or drug abuse patient.[facility] HospitalIn the event this information is protected by the Federal Confidentiality of Alcohol and Drug Abuse Patient Records regulations: The Federal rules restrict any use of the information to criminally investigate or prosecute any alcohol or drug abuse patient.[facility] HospitalIn the event this information is protected by the Federal Confidentiality of Alcohol and Drug Abuse Patient Records regulations: The Federal rules restrict any use of the information to criminally investigate or prosecute any alcohol or drug abuse patient.[facility] HospitalIn the event this information is protected by the Federal Confidentiality of Alcohol and Drug Abuse Patient Records regulations: The Federal rules restrict any use of the information to criminally investigate or prosecute any alcohol or drug abuse patient.[facility] HospitalIn the event this information is protected by the Federal Confidentiality of Alcohol and Drug Abuse Patient Records regulations: The Federal rules restrict any use of the information to criminally investigate or prosecute any alcohol or drug abuse patient.[facility] HospitalIn the event this information is protected by the Federal Confidentiality of Alcohol and Drug Abuse Patient Records regulations: The Federal rules restrict any use of the information to criminally investigate or prosecute any alcohol or drug abuse patient.[facility] HospitalIn the event this information is protected by the Federal Confidentiality of Alcohol and Drug Abuse Patient Records regulations: The Federal rules restrict any use of the information to criminally investigate or prosecute any alcohol or drug abuse patient.[facility] HospitalIn the event this information is protected by the Federal Confidentiality of Alcohol and Drug Abuse Patient Records regulations: The Federal rules restrict any use of the information to criminally investigate or prosecute any alcohol or drug abuse patient.[facility] HospitalIn the event this information is protected by the Federal Confidentiality of Alcohol and Drug Abuse Patient Records regulations: The Federal rules restrict any use of the information to criminally investigate or prosecute any alcohol or drug abuse patient.[facility] HospitalIn the event this information is protected by the Federal Confidentiality of Alcohol and Drug Abuse Patient Records regulations: The Federal rules restrict any use of the information to criminally investigate or prosecute any alcohol or drug abuse patient.[facility] HospitalIn the event this information is protected by the Federal Confidentiality of Alcohol and Drug Abuse Patient Records regulations: The Federal rules restrict any use of the information to criminally investigate or prosecute any alcohol or drug abuse patient.[facility] HospitalIn the event this information is protected by the Federal Confidentiality of Alcohol and Drug Abuse Patient Records regulations: The Federal rules restrict any use of the information to criminally investigate or prosecute any alcohol or drug abuse patient.[facility] HospitalIn the event this information is protected by the Federal Confidentiality of Alcohol and Drug Abuse Patient Records regulations: The Federal rules restrict any use of the information to criminally investigate or prosecute any alcohol or drug abuse patient.[facility] HospitalIn the event this information is protected by the Federal Confidentiality of Alcohol and Drug Abuse Patient Records regulations: The Federal rules restrict any use of the information to criminally investigate or prosecute any alcohol or drug abuse patient.[facility] HospitalIn the event this information is protected by the Federal Confidentiality of Alcohol and Drug Abuse Patient Records regulations: The Federal rules restrict any use of the information to criminally investigate or prosecute any alcohol or drug abuse patient.[facility] HospitalIn the event this information is protected by the Federal Confidentiality of Alcohol and Drug Abuse Patient Records regulations: The Federal rules restrict any use of the information to criminally investigate or prosecute any alcohol or drug abuse patient.[facility] HospitalIn the event this information is protected by the Federal Confidentiality of Alcohol and Drug Abuse Patient Records regulations: The Federal rules restrict any use of the information to criminally investigate or prosecute any alcohol or drug abuse patient.[facility] HospitalIn the event this information is protected by the Federal Confidentiality of Alcohol and Drug Abuse Patient Records regulations: The Federal rules restrict any use of the information to criminally investigate or prosecute any alcohol or drug abuse patient.[facility] HospitalIn the event this information is protected by the Federal Confidentiality of Alcohol and Drug Abuse Patient Records regulations: The Federal rules restrict any use of the information to criminally investigate or prosecute any alcohol or drug abuse patient.[facility] HospitalIn the event this information is protected by the Federal Confidentiality of Alcohol and Drug Abuse Patient Records regulations: The Federal rules restrict any use of the information to criminally investigate or prosecute any alcohol or drug abuse patient.[facility] HospitalIn the event this information is protected by the Federal Confidentiality of Alcohol and Drug Abuse Patient Records regulations: The Federal rules restrict any use of the information to criminally investigate or prosecute any alcohol or drug abuse patient.[facility] HospitalIn the event this information is protected by the Federal Confidentiality of Alcohol and Drug Abuse Patient Records regulations: The Federal rules restrict any use of the information to criminally investigate or prosecute any alcohol or drug abuse patient.[facility] HospitalIn the event this information is protected by the Federal Confidentiality of Alcohol and Drug Abuse Patient Records regulations: The Federal rules restrict any use of the information to criminally investigate or prosecute any alcohol or drug abuse patient.[facility] HospitalIn the event this information is protected by the Federal Confidentiality of Alcohol and Drug Abuse Patient Records regulations: The Federal rules restrict any use of the information to criminally investigate or prosecute any alcohol or drug abuse patient.[facility] HospitalIn the event this information is protected by the Federal Confidentiality of Alcohol and Drug Abuse Patient Records regulations: The Federal rules restrict any use of the information to criminally investigate or prosecute any alcohol or drug abuse patient.[facility] HospitalIn the event this information is protected by the Federal Confidentiality of Alcohol and Drug Abuse Patient Records regulations: The Federal rules restrict any use of the information to criminally investigate or prosecute any alcohol or drug abuse patient.[facility] HospitalIn the event this information is protected by the Federal Confidentiality of Alcohol and Drug Abuse Patient Records regulations: The Federal rules restrict any use of the information to criminally investigate or prosecute any alcohol or drug abuse patient.[facility] HospitalIn the event this information is protected by the Federal Confidentiality of Alcohol and Drug Abuse Patient Records regulations: The Federal rules restrict any use of the information to criminally investigate or prosecute any alcohol or drug abuse patient.[facility] HospitalIn the event this information is protected by the Federal Confidentiality of Alcohol and Drug Abuse Patient Records regulations: The Federal rules restrict any use of the information to criminally investigate or prosecute any alcohol or drug abuse patient.[facility] HospitalIn the event this information is protected by the Federal Confidentiality of Alcohol and Drug Abuse Patient Records regulations: The Federal rules restrict any use of the information to criminally investigate or prosecute any alcohol or drug abuse patient.[facility]In the event this information is protected by the Federal Confidentiality of Alcohol and Drug Abuse Patient Records regulations: The Federal rules restrict any use of the information to criminally investigate or prosecute any alcohol or drug abuse patient.[facility] HospitalIn the event this information is protected by the Federal Confidentiality of Alcohol and Drug Abuse Patient Records regulations: The Federal rules restrict any use of the information to criminally investigate or prosecute any alcohol or drug abuse patient.[facility] HospitalIn the event this information is protected by the Federal Confidentiality of Alcohol and Drug Abuse Patient Records regulations: The Federal rules restrict any use of the information to criminally investigate or prosecute any alcohol or drug abuse patient.[facility] HospitalIn the event this information is protected by the Federal Confidentiality of Alcohol and Drug Abuse Patient Records regulations: The Federal rules restrict any use of the information to criminally investigate or prosecute any alcohol or drug abuse patient.[facility] HospitalIn the event this information is protected by the Federal Confidentiality of Alcohol and Drug Abuse Patient Records regulations: The Federal rules restrict any use of the information to criminally investigate or prosecute any alcohol or drug abuse patient.[facility] HospitalIn the event this information is protected by the Federal Confidentiality of Alcohol and Drug Abuse Patient Records regulations: The Federal rules restrict any use of the information to criminally investigate or prosecute any alcohol or drug abuse patient.[facility] HospitalIn the event this information is protected by the Federal Confidentiality of Alcohol and Drug Abuse Patient Records regulations: The Federal rules restrict any use of the information to criminally investigate or prosecute any alcohol or drug abuse patient.[facility] HospitalIn the event this information is protected by the Federal Confidentiality of Alcohol and Drug Abuse Patient Records regulations: The Federal rules restrict any use of the information to criminally investigate or prosecute any alcohol or drug abuse patient.[facility] HospitalIn the event this information is protected by the Federal Confidentiality of Alcohol and Drug Abuse Patient Records regulations: The Federal rules restrict any use of the information to criminally investigate or prosecute any alcohol or drug abuse patient.[facility] HospitalIn the event this information is protected by the Federal Confidentiality of Alcohol and Drug Abuse Patient Records regulations: The Federal rules restrict any use of the information to criminally investigate or prosecute any alcohol or drug abuse patient.[facility] HospitalIn the event this information is protected by the Federal Confidentiality of Alcohol and Drug Abuse Patient Records regulations: The Federal rules restrict any use of the information to criminally investigate or prosecute any alcohol or drug abuse patient.[facility] HospitalIn the event this information is protected by the Federal Confidentiality of Alcohol and Drug Abuse Patient Records regulations: The Federal rules restrict any use of the information to criminally investigate or prosecute any alcohol or drug abuse patient.[facility] HospitalIn the event this information is protected by the Federal Confidentiality of Alcohol and Drug Abuse Patient Records regulations: The Federal rules restrict any use of the information to criminally investigate or prosecute any alcohol or drug abuse patient.[facility] HospitalIn the event this information is protected by the Federal Confidentiality of Alcohol and Drug Abuse Patient Records regulations: The Federal rules restrict any use of the information to criminally investigate or prosecute any alcohol or drug abuse patient.[facility] HospitalIn the event this information is protected by the Federal Confidentiality of Alcohol and Drug Abuse Patient Records regulations: The Federal rules restrict any use of the information to criminally investigate or prosecute any alcohol or drug abuse patient.[facility] HospitalIn the event this information is protected by the Federal Confidentiality of Alcohol and Drug Abuse Patient Records regulations: The Federal rules restrict any use of the information to criminally investigate or prosecute any alcohol or drug abuse patient.[facility] HospitalIn the event this information is protected by the Federal Confidentiality of Alcohol and Drug Abuse Patient Records regulations: The Federal rules restrict any use of the information to criminally investigate or prosecute any alcohol or drug abuse patient.[facility] HospitalIn the event this information is protected by the Federal Confidentiality of Alcohol and Drug Abuse Patient Records regulations: The Federal rules restrict any use of the information to criminally investigate or prosecute any alcohol or drug abuse patient.[facility] HospitalIn the event this information is protected by the Federal Confidentiality of Alcohol and Drug Abuse Patient Records regulations: The Federal rules restrict any use of the information to criminally investigate or prosecute any alcohol or drug abuse patient.[facility] HospitalIn the event this information is protected by the Federal Confidentiality of Alcohol and Drug Abuse Patient Records regulations: The Federal rules restrict any use of the information to criminally investigate or prosecute any alcohol or drug abuse patient.[facility] HospitalIn the event this information is protected by the Federal Confidentiality of Alcohol and Drug Abuse Patient Records regulations: The Federal rules restrict any use of the information to criminally investigate or prosecute any alcohol or drug abuse patient.[facility] HospitalIn the event this information is protected by the Federal Confidentiality of Alcohol and Drug Abuse Patient Records regulations: The Federal rules restrict any use of the information to criminally investigate or prosecute any alcohol or drug abuse patient.[facility] HospitalIn the event this information is protected by the Federal Confidentiality of Alcohol and Drug Abuse Patient Records regulations: The Federal rules restrict any use of the information to criminally investigate or prosecute any alcohol or drug abuse patient.[facility] HospitalIn the event this information is protected by the Federal Confidentiality of Alcohol and Drug Abuse Patient Records regulations: The Federal rules restrict any use of the information to criminally investigate or prosecute any alcohol or drug abuse patient.[facility] HospitalIn the event this information is protected by the Federal Confidentiality of Alcohol and Drug Abuse Patient Records regulations: The Federal rules restrict any use of the information to criminally investigate or prosecute any alcohol or drug abuse patient.[facility] HospitalIn the event this information is protected by the Federal Confidentiality of Alcohol and Drug Abuse Patient Records regulations: The Federal rules restrict any use of the information to criminally investigate or prosecute any alcohol or drug abuse patient.[facility] HospitalIn the event this information is protected by the Federal Confidentiality of Alcohol and Drug Abuse Patient Records regulations: The Federal rules restrict any use of the information to criminally investigate or prosecute any alcohol or drug abuse patient.[facility] HospitalIn the event this information is protected by the Federal Confidentiality of Alcohol and Drug Abuse Patient Records regulations: The Federal rules restrict any use of the information to criminally investigate or prosecute any alcohol or drug abuse patient.[facility] HospitalIn the event this information is protected by the Federal Confidentiality of Alcohol and Drug Abuse Patient Records regulations: The Federal rules restrict any use of the information to criminally investigate or prosecute any alcohol or drug abuse patient.[facility] HospitalIn the event this information is protected by the Federal Confidentiality of Alcohol and Drug Abuse Patient Records regulations: The Federal rules restrict any use of the information to criminally investigate or prosecute any alcohol or drug abuse patient.[facility] Reason for Visit (unrecogniz ed section and content) Reason Comments Established Patient Medical concerns Specialty Diagnoses / Procedures Referred By Brigid pearce Referred To Contact INTERNAL MEDICINE Diagnoses follow up Procedures follow up Self [address] [place] [address] [address] [place] [address] Referral ID Status Reason Start Date Expiration Date V isits Requested Visits Authorized [id number] Closed Patient Cleared - Qualified 100% FAS 07/31/2024 10/29/2024 99 99 Reason Comments Suture Removal Suture removal left foot. Wants to discuss medications still has no energy. Specialty Diagnoses / Procedures Referred By Contac t Referred To Contact [facility] Diagnoses est new care Procedures 4C NEW Self [facility] [place] [place] [address] Referral ID Status Reason Start Date Expiration Date Visits Requested Visits Authorized [id number] Pending Review Patient Cleared - Qualified 100% FAS 07/14/2024 10/12/2024 99 99 Reason Comments Follow Up Following up on rash getting worse Specialty Diagnoses / Procedures Referred By Contac t Referred To Contact Family Medicine / [facility] DEPARTMENT Diagnoses est new care Procedures 4C NEW Self Remi Ruth APRN.PIG MACHINE CRANE OPERATOR [address] [place] [address] Referral ID Status Reason Start Date Expiration Date Visits Requested Visits Authorized [id number] Authorized Patient Cleared - Qualified 100% FAS 05/31/2024 08/29/2024 99 99 Reason Comments Established Patient Specialty Diagnoses / Procedures Referred By Contac t Referred To Contact Orthopedics Diagnoses Chronic pain of left knee Procedures CONSULT PANEL TO ORTHOPAEDICS OFFICE/OUTPATIENT [facility] 60-74 MINUTES Devon James Jr., [address] [facility] [address] [place] [address] Referral ID Status Reason Start Date Expiration Date V isits Requested Visits Authorized [id number] Closed PCP Requested Referral 03/31/2023 03/30/2024 1 1 Reason Comments Follow Up Reason Comments Established Patient left knee, Euflexxa injection 1/3 Established Patient Reason Comments Pain 6/10 pain left knee Pain Established Patient Reason Comments Established Patient left knee, 3/3 Eufle xxa inj Established Patient Reason Comments Rhinitis pressure, headache, fatigue x 2 days Reason Comments Opened In Error Reason Onset Date Comments Transition Of Care 03/25/2022 D/C FROM [facility] 03/24/2022 FOR URI SX Reason Comments Established Patient Transfer Care Sinus Problem Reason Comments Headache Sinus problem is cau sing migraine. Has had for 1 month now Throat Problem Right side of face a nd throat is sore Reason Comments Ear Pain ear pain x1 week , w as using ofloxacin but ran out Reason Comments Viral Syndrome Symptoms started a f ew days ago. Reason Comments Illness Reason Comments Sinus Problem Sinus drainage is ca using cough for about 1 week now. Is currently using Mucinex D Reason Comments Insurance Authorization Reason Comments Left Knee Pain Reason Comments Appointment Reason Onset Date Comments Refill Request 07/07/2022 Reason Onset Date Comments Refill Request 07/08/2022 Reason Comments Appointment Rescheduled Reason Comments ED Follow-up Reason Comments Consult GASTROENTEROLOGY Reason Comments Knee Pain Reason Comments ED Follow Up WAS IN ER DUE TO FAL L AT WORK SUSTAINED KNEE INJURY(NOT BEING SEEN FOR THAT) AND WOULD LIKE TO FIGURE OUT WHY IT HAPPENED Reason Comments Consult PHYSICAL THERAPY Reason Comments New Specialty Diagnoses / Procedures Referred By Contac t Referred To Contact ORTHOPAEDIC SURGERY Diagnoses Contusion of right knee Procedures REFERRAL TO [facility]SEL[facility] Room, Emergency Orth [facility] [place] [address] [place] [address] Referral ID Status Reason Start Date Expiration Date V isits Requested Visits Authorized [id number] Outside PCP 08/17/2022 10/16/2022 1 1 Specialty Diagnoses / Procedures Referred By Contac t Referred To Contact [facility] [place] Diagnoses Syncope, unspecified syncope type [R55] Procedures HOLTER MONITOR Avelina Ferraro MD [address] [facility] [address] [place] [address] Card Lab [facility] [place] [address] [place] [address] Referral ID Status Reason Start Date Expiration Date V isits Requested Visits Authorized [id number] Pending Review 08/21/2022 11/19/2022 1 1 Reason Comments Medication Request Reason Onset Date Comments Refill Request Refill Request 09/07/2022 Reason Comments Yearly Exam Reason Onset Date Comments Refill Request 11/16/2022 Reason Comments Durable Medical Equipment Reason Comments URI Sinus infection and rash on right lower leg seen on 10/05, still having the rash and continues phlegm from sinus infection. Lower back on left side causing pt pain Reason Comments Rx Refills Rash Rash on right lower leg and right elbow, elbow is new for a few days, rash on legs has been there for a couple months gotten worse Reason Comments Consult DERMATOLOGY #[id number] Reason Comments Refill Request Reason Comments Established Patient Left knee Reason Comments Referral Request Ortho Reason Comments Appointment Patient called and w ants to be seen following an emergency room visit for his left knee Reason Comments Question Reason Comments Sinus Problem Reason Comments Referral Request ENT Reason Comments Sinus Problem Headache, sinus pres sure, productive cough and bilateral ear ache. X's 1 week did not test for covid. And his eczema is starting up on his right leg again. Reason Comments Illness Sore throat, coughin g, ears ache, wheezing and popping in lungs Reason Onset Date Comments Refill Request 09/20/2023 Reason Comments Ear Pain Left also concerned it is blocked also underneath the ear is swollen. Specialty Diagnoses / Procedures Referred By Brigid pearce Referred To Contact Internal Medicine / [facility] Diagnoses left ear pain/blocked onset 12/19 Procedures EST SAME DAY Self Walk In [address] [place] [address] Referral ID Status Reason Start Date Expiration Date Visits Requested Visits Authorized [id number] Authorized Patient Cleared - Qualified 100% FAS 12/23/2023 03/22/2024 99 99 Reason Onset Date Comments Refill Request 12/22/2023 Reason Comments Viral Syndrome Had pneumonia 3 week s ago, still has cough Rash Has rash on leg, onl y thing that helps is athletes foot spray Reason Comments Viral Syndrome Last seen 02/25/24, s inus congestion that pt feels like that its going to his chest, pt states that symptoms has been there since he had PNU about a month ago, headaches, sore throat, feels that chest is heavy, frontal and maxillary sinus pressure per pt, Reason Comments Covid19 Concern Reason Comments No Show Reason Comments URI Sinus drainage, sinu s pressure, headache, rash on right leg and wrist and left knee and hands- 1 month for sinus issues, 1 month for rash but getting worse and more irritating Reason Onset Date Comments Refill Request 05/23/2024 Reason Comments Established Patient Transfer of care sin us infection not getting better states it never went away after having covid a few months ago. Feels worse now then went he went into the walk in clinic. Reason Comments Low Back Pain Specialty Diagnoses / Procedures Referred By Brigid pearce Referred To Contact Family Medicine / [facility] DEPARTMENT Diagnoses est new care Procedures 4C NEW Self Remi Ruth APRN.PIG MACHINE CRANE OPERATOR [address] [place] [address] Reason Comments Results Reason Comments Follow Up Follow up lower back pain seen [facility] a few week ago. Feels bubbles under the skin and it itches. And wants to go back on anxiety and depression meds. Specialty Diagnoses / Procedures Referred By Brigid pearce Referred To Contact [facility] Diagnoses est new care Procedures [address] [place], [place] [address] [place] [address] Referral ID Status Reason Start Date Expiration Date Visits Requested Visits Authorized [id number] Authorized Patient Cleared - Qualified 100% FAS 06/27/2024 09/25/2024 99 99 Reason Comments Returning Patient's Call Reason Onset Date Comments Psychiatric Problem 07/31/2024 Reason Comments Missed Appointment 08/01/2024 at 9:20 a m for follow up on medication 1ST NO SHOW Reason Onset Date Comments ED Follow Up 08/02/2024 Reason Comments Med Change Request Reason Comments Missed Appointment 08/07/2024 at 1:20 p m for ER follow up 2ND NO SHOW Reason Comments Hospital Follow Up Reason Onset Date Comments ED Follow Up 08/21/2024 Reason Comments Ambulatory Social Work Financial resourc es Reason Comments Orders Reason Comments Ambulatory Social Work Financial and com munity resources Reason Comments Follow Up 1 month follow up ot her then tired his is feeling ok Specialty Diagnoses / Procedures Referred By Brigid pearce Referred To Contact [facility]NAL [facility]IC[facility] Diagnoses follow up Procedures follow up Self [place] [address] [place] [address] Referral ID Status Reason Start Date Expiration Date Visits Requested Visits Authorized [id number] Authorized Patient Cleared - Qualified 100% FAS 07/31/2024 10/29/2024 99 99 Reason Comments Sinus Problem Sinus pressure and d rainage. Bilateral ears feel full Reason Comments Sinus Problem Sinus pressure, Head ache, nasal drainage, over weekend was vomiting due to drainage, ears full like there is water in them x's 1 month Reason Comments Follow Up Reason Comments Consult Orthopaedics Reason Comments URI Reason Comments Follow Up Follow up from sinus infection causing left ear pain Reason Onset Date Comments EMG 12/21/2024 Specialty Diagnoses / Procedures Referred By Brigid pearce Referred To Contact [facility] Diagnoses Wrist pain, acute, right Procedures EMG(NEURO/NI) NERVE CONDUCTION STUDIES 9-10 STUDIES Remi Ruth APRN.PIG MACHINE CRANE OPERATOR [address] [place] [address] Phone: tel: fax: Neurology [address] [place] [address] Phone: tel: Referral ID Status Reason Start Date Expiration Date V isits Requested Visits Authorized [id number] Closed Auto-Generate d Referral 11/21/2024 11/21/2025 1 1 Reason Onset Date Comments Results 12/21/2024 Reason Comments New Specialty Diagnoses / Procedures Referred By Contac t Referred To Contact Orthopedics Diagnoses Wrist pain, acute, right Procedures CONSULT TO ORTHOPAEDICS OFFICE/OUTPATIENT NEW HIGH MDM 60 MINUTES Remi Ruth APRN.PIG MACHINE CRANE OPERATOR [address] [place] [address] Phone: tel: fax: Referral ID Status Reason Start Date Expiration Date V isits Requested Visits Authorized [id number] Closed PCP Requested Referral 11/21/2024 11/21/2025 1 1 Reason Onset Date Comments ED Follow Up 01/29/2025 Reason Comments Illness Discuss sinus conges tion and cough (going on for 4 days) Reason Comments Medication Follow-up Medication review o slick weekend started with blood in urine and lower back pain ( was DX with Kidney stone in past) Reason Onset Date Comments Results 02/12/2025 Reason Onset Date Comments Refill Request 02/12/2025 Reason Onset Date Comments ED Follow Up 02/15/2025 Reason Comments NO SHOW (FIRST) Reason Onset Date Comments ED Follow Up 03/08/2025 Reason Onset Date Comments Refill Request 03/12/2025 Reason Comments Appointment Vm xray remind for . Reason Comments Appointment Appt/Xray Reminder f or 03/21/25 Reason Comments Eye Problem Reason Onset Date Comments ED Follow Up 04/09/2025 Reason Comments Appointment Vm xray remind for Reason Comments Appointment Missed appointment Reason Comments error Reason Comments ER F/U Er follow up since l osing weight he notices itching under the abd fold. Also having left Knee surgery on 05/23 will need clearance Reason Comments Follow Up 3 month follow up le ft knee pain so the whole left leg hurts now Reason Comments Consult [facility] / Dr. Donovan Palomares Care Teams (unrecognized sec tion and content) Napping Machine Operator Relationship Specialty Start Date End Date Agapito Hale MD [address] [place] [address] PCP - General Internal Medicine 11/06/21 Napping Machine Operator Relationship Specialty Start Date End Date Agapito Hale MD PCP - General Internal Medicine 11/06/21 Napping Machine Operator Relationship Specialty Start Date End Date Agapito Hale MD PCP - General Internal Medicine 11/06/21 Napping Machine Operator Relationship Specialty Start Date End Date Devon James Jr., MD [address] [place] [address] PCP - General Family Practice 04/06/22 Napping Machine Operator Relationship Specialty Start Date End Date Devon James Jr., MD [address] [place] [address] PCP - General Family Practice 04/06/22 Napping Machine Operator Relationship Specialty Start Date End Date Devon James Jr., MD [address] [place] [address] PCP - General Family Practice 04/06/22 Napping Machine Operator Relationship Specialty Start Date End Date Devon James Jr., MD [address] [place] [address] PCP - General Family Practice 04/06/22 Napping Machine Operator Relationship Specialty Start Date End Date Devon James Jr., MD [address] [place] [address] PCP - General Family Practice 04/06/22 Napping Machine Operator Relationship Specialty Start Date End Date Devon James Jr., MD [address] [facility] [address] [place] [address] PCP - General Family Practice 04/06/22 Napping Machine Operator Relationship Specialty Start Date End Date Devon James Jr., MD [address] [facility] [address] [place] [address] PCP - General Family Practice 04/06/22 Napping Machine Operator Relationship Specialty Start Date End Date Devon James Jr., MD [address] [facility] [address] [place] [address] PCP - General Family Practice 04/06/22 Napping Machine Operator Relationship Specialty Start Date End Date Devon James Jr., MD [address] [facility] [address] [place] [address] PCP - General Family Medicine 04/06/22 Napping Machine Operator Relationship Specialty Start Date End Date Devon James Jr., MD [address] [facility] [address] [place] [address] PCP - General Family Medicine 04/06/22 Napping Machine Operator Relationship Specialty Start Date End Date Devon James Jr., MD [address] [facility] [address] [place] [address] PCP - General Family Medicine 04/06/22 Napping Machine Operator Relationship Specialty Start Date End Date Devon Jaems Jr., MD [address] [facility] [address] [place] [address] PCP - General Family Medicine 04/06/22 Napping Machine Operator Relationship Specialty Start Date End Date Devon James Jr., MD [address] [facility] [address] [place] [address] PCP - General Family Medicine 04/06/22 Napping Machine Operator Relationship Specialty Start Date End Date Devon James Jr., MD [address] [facility] [address] [place] [address] PCP - General Family Medicine 04/06/22 Napping Machine Operator Relationship Specialty Start Date End Date Devon James Jr., MD [address] [place] [address] PCP - General Family Medicine 04/06/22 Napping Machine Operator Relationship Specialty Start Date End Date Devon James Jr., MD [address] [place] [address] PCP - General Family Medicine 04/06/22 Napping Machine Operator Relationship Specialty Start Date End Date Devon James Jr., MD [address] [place] [address] PCP - General Family Medicine 04/06/22 Napping Machine Operator Relationship Specialty Start Date End Date Devon James Jr., MD [address] [place] [address] PCP - General Family Medicine 04/06/22 Napping Machine Operator Relationship Specialty Start Date End Date Devon James Jr., MD [address] [place] [address] PCP - General Family Medicine 04/06/22 Napping Machine Operator Relationship Specialty Start Date End Date Devon James Jr., MD [address] [place] [address] PCP - General Family Medicine 04/06/22 Napping Machine Operator Relationship Specialty Start Date End Date Devon James Jr., MD [address] [place] [address] PCP - General Family Medicine 04/06/22 Napping Machine Operator Relationship Specialty Start Date End Date Devon James Jr., MD [address] [place] [address] PCP - General Family Medicine 04/06/22 Napping Machine Operator Relationship Specialty Start Date End Date Devon James Jr., MD [address] [facility] [address] [place] [address] PCP - General Family Medicine 04/06/22 Napping Machine Operator Relationship Specialty Start Date End Date Devon James Jr., MD [address] [facility] [address] [facility] [address] [place] [address] PCP - General Family Medicine 04/06/22 Napping Machine Operator Relationship Specialty Start Date End Date Devon James Jr., MD [address] [facility] [address] [facility] [address] [place] [address] PCP - General Family Medicine 04/06/22 Elmira Polo PA-C [address] [place] [address] Referring Physician Textile Conversion Manager 02/03/23 Napping Machine Operator Relationship Specialty Start Date End Date Devon James Jr., MD [address] [facility] [address] [place] [address] PCP - General Family Medicine 04/06/22 Elmira Polo PA-C [address] [place] [address] Referring Physician Textile Conversion Manager 02/03/23 Napping Machine Operator Relationship Specialty Start Date End Date Devon James Jr., MD [address] [facility] [address] [place] [address] PCP - General Family Medicine 04/06/22 Elmira Polo PA-C [address] [place] [address] Referring Physician Textile Conversion Manager 02/03/23 Napping Machine Operator Relationship Specialty Start Date End Date Devon James Jr., MD [address] [facility] [address] [place] [address] PCP - General Family Medicine 04/06/22 Elmira Polo PA-C [address] [place] [address] Referring Physician Textile Conversion Manager 02/03/23 Napping Machine Operator Relationship Specialty Start Date End Date Devon James Jr., MD [address] [facility] [address] [place] [address] PCP - General Family Medicine 04/06/22 Elmira Polo PA-C [address] [place] [address] Referring Physician Textile Conversion Manager 02/03/23 Napping Machine Operator Relationship Specialty Start Date End Date Devon James Jr., MD [address] [place] [address] PCP - General Family Medicine 04/06/22 Elmira Polo PA-C [address] [place] [address] Referring Physician Textile Conversion Manager 02/03/23 Napping Machine Operator Relationship Specialty Start Date End Date Devon James Jr., MD [address] [facility] [address] [place] [address] PCP - General Family Medicine 04/06/22 Elmira Polo PA-C [address] [place] [address] Referring Physician Textile Conversion Manager 02/03/23 Napping Machine Operator Relationship Specialty Start Date End Date Devon James Jr., MD [address] [facility] [address] [place] [address] PCP - General Family Medicine 04/06/22 Elmira Polo PA-C [address] [place] [address] Referring Physician Textile Conversion Manager 02/03/23 Napping Machine Operator Relationship Specialty Start Date End Date Devon James Jr., MD [address] [facility] [address] [place] [address] PCP - General Family Medicine 04/06/22 Elmira Polo PA-C [address] [place] [address] Referring Physician Textile Conversion Manager 02/03/23 Napping Machine Operator Relationship Specialty Start Date End Date Devon James Jr., MD [address] [address] PCP - General Family Medicine 04/06/22 Elmira Polo PA-C [address] [place] [address] Referring Physician Textile Conversion Manager 02/03/23 Napping Machine Operator Relationship Specialty Start Date End Date Devon James Jr., MD [address] [facility] [address] [place] [address] PCP - General Family Medicine 04/06/22 Elmira Polo PA-C [address] [place] [address] Referring Physician Textile Conversion Manager 02/03/23 Napping Machine Operator Relationship Specialty Start Date End Date Devon James Jr., MD [address] [address] PCP - General Family Medicine 04/06/22 Elmira Polo PA-C [address] [place] [address] Referring Physician Textile Conversion Manager 02/03/23 Napping Machine Operator Relationship Specialty Start Date End Date Devon James Jr., MD [address] [place] [address] PCP - General Family Medicine 04/06/22 Elmira Polo PA-C [address] [place] [address] Referring Physician Textile Conversion Manager 02/03/23 Napping Machine Operator Relationship Specialty Start Date End Date Devon James Jr., MD [address] [place] [address] PCP - General Family Medicine 04/06/22 Elmira Polo PA-C [address] [place] [address] Referring Physician Textile Conversion Manager 02/03/23 Napping Machine Operator Relationship Specialty Start Date End Date Elmira Polo PA-C [address] [place] [address] Referring Physician Textile Conversion Manager 02/03/23 Napping Machine Operator Relationship Specialty Start Date End Date Devon James Jr., MD [address] [address] PCP - General Family Medicine 05/01/24 Elmira Polo PA-C [address] [place] [facility] [place] [address] Referring Physician Textile Conversion Manager 02/03/23 Napping Machine Operator Relationship Specialty Start Date End Date Devon James Jr., MD [address] [facility] [address] [place] [address] PCP - General Family Medicine 05/01/24 Napping Machine Operator Relationship Specialty Start Date End Date Devon James Jr., MD [address] [facility] [address] [place] [address] PCP - General Family Medicine 05/01/24 Napping Machine Operator Relationship Specialty Start Date End Date Devon James Jr., MD [address] [facility] [address] [place] [address] PCP - General Family Medicine 05/01/24 Napping Machine Operator Relationship Specialty Start Date End Date Remi Ruth, CEMENT AND CONCRETE PLANT 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 [address] [facility] [place] [address] PCP - General Family Medicine 05/31/24 Napping Machine Operator Relationship Specialty Start Date End Date Remi Ruth, CEMENT AND CONCRETE PLANT 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 [address] [place] [address] PCP - General Family Medicine 05/31/24 Napping Machine Operator Relationship Specialty Start Date End Date Remi Ruth, CEMENT AND CONCRETE PLANT 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 [address] [place] [facility] [place] [address] PCP - General Family Medicine 05/31/24 Napping Machine Operator Relationship Specialty Start Date End Date Mastrucci, Remi, CEMENT AND CONCRETE PLANT 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 [address] [place] [facility] [place] [address] PCP - General Family Medicine 05/31/24 Napping Machine Operator Relationship Specialty Start Date End Date Mastrucci, Remi, CEMENT AND CONCRETE PLANT 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 [address] [place] [facility] [place] [address] PCP - General Family Medicine 05/31/24 Napping Machine Operator Relationship Specialty Start Date End Date Mastrucci, Remi, CEMENT AND CONCRETE PLANT WORKER.PIG MACHINE CRANE OPERATOR [address] [place] [facility] [place] [address] PCP - General Family Medicine 05/31/24 Napping Machine Operator Relationship Specialty Start Date End Date Mastrucci, Remi, CEMENT AND CONCRETE PLANT WORKER.PIG MACHINE CRANE OPERATOR [address] [place] [facility] [place] [address] PCP - General Family Medicine 05/31/24 Napping Machine Operator Relationship Specialty Start Date End Date Mastrucci, Remi, CEMENT AND CONCRETE PLANT WORKER.PIG MACHINE CRANE OPERATOR [address] [place] [facility] [place] [address] PCP - General Family Medicine 05/31/24 Napping Machine Operator Relationship Specialty Start Date End Date Mastrucci, Remi, CEMENT AND CONCRETE PLANT WORKER.PIG MACHINE CRANE OPERATOR [address] [place] [facility] [place] [address] PCP - General Family Medicine 05/31/24 Napping Machine Operator Relationship Specialty Start Date End Date Mastrucci, Remi, CEMENT AND CONCRETE PLANT WORKER.PIG MACHINE CRANE OPERATOR [address] [place] [facility] [place] [place] [address] PCP - General Family Medicine 05/31/24 Napping Machine Operator Relationship Specialty Start Date End Date Mastrucci, Remi, CEMENT AND CONCRETE PLANT WORKER.PIG MACHINE CRANE OPERATOR [address] [place] [facility] [place] [address] PCP - General Family Medicine 05/31/24 Napping Machine Operator Relationship Specialty Start Date End Date Mastrucci, Remi, CEMENT AND CONCRETE PLANT WORKER.PIG MACHINE CRANE OPERATOR [address] [place] [facility] [place] [place] [address] PCP - General Family Medicine 05/31/24 Napping Machine Operator Relationship Specialty Start Date End Date Mastrucci, Remi, CEMENT AND CONCRETE PLANT WORKER.PIG MACHINE CRANE OPERATOR [address] [place] [facility] [place] [place] [address] PCP - General Family Medicine 05/31/24 Napping Machine Operator Relationship Specialty Start Date End Date Mastrucci, Remi, CEMENT AND CONCRETE PLANT WORKER.PIG MACHINE CRANE OPERATOR [address] [place] [facility] [place] [place] [address] PCP - General Family Medicine 05/31/24 Napping Machine Operator Relationship Specialty Start Date End Date Mastrucci, Remi, CEMENT AND CONCRETE PLANT WORKER.PIG MACHINE CRANE OPERATOR [address] [place] [facility] [place] [place] [address] PCP - General Family Medicine 05/31/24 Napping Machine Operator Relationship Specialty Start Date End Date Mastrucci, Remi, CEMENT AND CONCRETE PLANT WORKER.PIG MACHINE CRANE OPERATOR [address] [place] [facility] [place] [place] [address] PCP - General Family Medicine 05/31/24 Napping Machine Operator Relationship Specialty Start Date End Date Mastrucci, Remi, CEMENT AND CONCRETE PLANT WORKER.PIG MACHINE CRANE OPERATOR [address] [place] [facility] [place] [place] [address] PCP - General Family Medicine 05/31/24 Napping Machine Operator Relationship Specialty Start Date End Date Mastrucci, Remi, CEMENT AND CONCRETE PLANT WORKER.PIG MACHINE CRANE OPERATOR [address] [place] [facility] [place] [place] [address] PCP - General Family Medicine 05/31/24 Napping Machine Operator Relationship Specialty Start Date End Date Mastrucci, Remi, CEMENT AND CONCRETE PLANT WORKER.PIG MACHINE CRANE OPERATOR [address] [place] [facility] [place] [place] [address] PCP - General Family Medicine 05/31/24 Napping Machine Operator Relationship Specialty Start Date End Date Mastrucci, Remi, CEMENT AND CONCRETE PLANT WORKER.PIG MACHINE CRANE OPERATOR [address] [place] [facility] [place] [place] [address] PCP - General Family Medicine 05/31/24 Napping Machine Operator Relationship Specialty Start Date End Date Mastrucci, Remi, CEMENT AND CONCRETE PLANT WORKER.PIG MACHINE CRANE OPERATOR [address] [place] [facility] [place] [place] [address] PCP - General Family Medicine 05/31/24 Napping Machine Operator Relationship Specialty Start Date End Date Mastrucci, Remi, CEMENT AND CONCRETE PLANT WORKER.PIG MACHINE CRANE OPERATOR [address] [place] [facility] [place] [place] [address] PCP - General Family Medicine 05/31/24 Napping Machine Operator Relationship Specialty Start Date End Date Mastrucci, Remi, CEMENT AND CONCRETE PLANT WORKER.PIG MACHINE CRANE OPERATOR [address] [place] [facility] [place] [place] [address] PCP - General Family Medicine 05/31/24 Napping Machine Operator Relationship Specialty Start Date End Date Mastrucci, Remi, CEMENT AND CONCRETE PLANT WORKER.PIG MACHINE CRANE OPERATOR [address] [place] [facility] [place] [place] [address] PCP - General Family Medicine 05/31/24 Napping Machine Operator Relationship Specialty Start Date End Date Mastrucci, Remi, CEMENT AND CONCRETE PLANT WORKER.PIG MACHINE CRANE OPERATOR [address] [place] [facility] [place] [place] [address] PCP - General Family Medicine 05/31/24 Napping Machine Operator Relationship Specialty Start Date End Date Mastrucci, Remi, CEMENT AND CONCRETE PLANT WORKER.PIG MACHINE CRANE OPERATOR [address] [place] [facility] [place] [place] [address] PCP - General Family Medicine 05/31/24 Napping Machine Operator Relationship Specialty Start Date End Date Mastrucci, Remi, CEMENT AND CONCRETE PLANT WORKER.PIG MACHINE CRANE OPERATOR [address] [place] [facility] [place] [place] [address] PCP - General Family Medicine 05/31/24 Napping Machine Operator Relationship Specialty Start Date End Date Mastrucci, Remi, CEMENT AND CONCRETE PLANT WORKER.PIG MACHINE CRANE OPERATOR [address] [place] [facility] [place] [place] [address] PCP - General Family Medicine 05/31/24 Napping Machine Operator Relationship Specialty Start Date End Date Mastrucci, Remi, CEMENT AND CONCRETE PLANT WORKER.PIG MACHINE CRANE OPERATOR [address] [place] [facility] [place] [place] [address] PCP - General Family Medicine 05/31/24 Napping Machine Operator Relationship Specialty Start Date End Date Mastrucci, Remi, CEMENT AND CONCRETE PLANT WORKER.PIG MACHINE CRANE OPERATOR [address] [place] [facility] [place] [place] [address] PCP - General Family Medicine 05/31/24 Napping Machine Operator Relationship Specialty Start Date End Date Mastrucci, Remi, CEMENT AND CONCRETE PLANT WORKER.PIG MACHINE CRANE OPERATOR [address] [place] [facility] [place] [place] [address] PCP - General Family Medicine 05/31/24 Napping Machine Operator Relationship Specialty Start Date End Date Remi Ruth APRN.PIG MACHINE CRANE OPERATOR [address] [place] [address] PCP - General Family Medicine 05/31/24 Napping Machine Operator Relationship Specialty Start Date End Date Remi Ruth APRN.PIG MACHINE CRANE OPERATOR [address] [place] [address] PCP - General Family Medicine 05/31/24 FOR RECORDS PERTAINING TO PATIENTS WHO ARE [...] BE BASED ON THE PRIMARY CLINICAL RECORDS. [facility] [employer] provides no warranty or guarantee of the accuracy or completeness of information in this document.
[2025-06-15 09:17] LABS: Hematocrit 35.5 % (40-54); Hemoglobin 11.6 g/dL (13.0-16.5); Mean Corp Hgb Conc 32.7 g/dL (32-36); Mean Corpuscular Volume 87.0 fL (80-94); Mean Platelet Vol. 9.6 fl (6.2-12.0); Platelet Count 325 K/mm3 (150-450); RBC Distribution Width CV 14.6 % (11.6-14.6); RBC Distribution Width SD 47.2 fl (35.1-43.9); Red Blood Count 4.08 M/mm3 (4.6-6.2); White Blood Count 4.6 K/mm3 (4.4-11.0)
[2025-06-15 09:43] LABS: Anion Gap 10 (5-15); BUN 10 mg/dL (4-19); BUN/Creat Ratio 11.3 RATIO (10-20); Calcium,Total 8.8 mg/dL (7.6-11.0); Carbon Dioxide 20.2 mmol/L (21.0-32.0); Chloride 110 mmol/L (98-108); Glucose 90 mg/dL (70-99); Potassium 3.8 mmol/L (3.3-5.1)
== END ==
LOC: OLS.SANC 05:00
PROVIDERS: Visit Provider Internal Medicine
DX: N40.0 Benign prostatic hyperplasia without lower urinary tract symptoms (principal); G47.33 Obstructive sleep apnea (adult) (pediatric); K21.9 Gastro-esophageal reflux disease without esophagitis
CPT/HCPCS: 36415; 80048; 85027